=== PATIENT | female | born 1955 | race Caucasian/White ===

== ENCOUNTER 2021-07-13 14:20 | Outpatient (REF) | payer BC, SELFPAY ==
--- NOTE | ~2021-07-13 | XR_ITS ---
EXAMINATION: XR LUMBOSACRAL SPINE WITH OBLIQUES CLINICAL INFORMATION: M47.816 - Spondylosis without myelopathy or radiculopathy. Left hip pain. COMPARISON: CT abdomen and pelvis 06/25/2016 TECHNIQUE: Lumbar spine is imaged in 7 views including lateral projections in neutral position and with flexion and extension. FINDINGS: There are 5 nonrib-bearing lumbar vertebrae of normal height. There is no lumbar vertebral compression, spondylolisthesis, or destructive process. There is accentuated lumbar lordosis with limited range of motion in flexion and extension. There is no instability with flexion or extension. There are degenerative disc changes at L1-L2 and lesser degenerative disc change at L3-L4 with mild disc narrowing and endplate sclerosis and vertebral spurring. No visible spondylolysis. The SI joints and visualized sacrum are unremarkable. There is old bone island overlying the lower left ilium, similar to CT 2017. Calcifications left upper quadrant may be related to calcified costal cartilage or possibly splenic artery. Bowel gas unremarkable. XR/XR lumbar spine 6V w bending IMPRESSION: -Accentuated lumbar lordosis with limited range of motion. No instability. -Degenerative disc changes L1-L2 and lesser at L3-L4. -No vertebral compression or destructive process.
--- NOTE | ~2021-07-13 | XR_ITS ---
EXAMINATION: XR HIP, LEFT CLINICAL INFORMATION: M25.552 - Pain in left hip COMPARISON: Radiographs lumbar spine 07/13/2021, CT abdomen and pelvis 06/25/2016 TECHNIQUE: Two views of the left hip. FINDINGS: No fracture, dislocation, destructive process. No joint narrowing or erosive change or chondrocalcinosis. There is minor spurring from the greater trochanter. Mild spurring is again seen from the lateral iliac crest. There is an old sclerotic bone island again noted lower ileum, similar to CT 2017. The left SI joint and the pubis are unremarkable. There are scattered calcified phleboliths in the pelvis. XR/XR hip LT w PEL1V IMPRESSION: No joint narrowing or erosive change.
== END 2021-07-13 14:21 | disposition home or self-care (01) ==
LOC: HO.XRAY 14:20
PROVIDERS: PCP Internal Medicine; Visit Provider Nurse Practitioner Family
DX: G89.29 Other chronic pain (principal); M25.552 Pain in left hip; M47.816 Spondylosis without myelopathy or radiculopathy, lumbar region; M53.3 Sacrococcygeal disorders, not elsewhere classified; N94.819 Vulvodynia, unspecified; E66.3 Overweight; Z68.30 Body mass index [BMI] 30.0-30.9, adult; J30.81 Allergic rhinitis due to animal (cat) (dog) hair and dander; Z88.8 Allergy status to other drugs, medicaments and biological substances; J30.89 Other allergic rhinitis; Z91.030 Bee allergy status; Z91.040 Latex allergy status
CPT/HCPCS: 72114; 73502

== ENCOUNTER → 2021-07-23 08:24 | Outpatient (BNVA) | payer BC, SELFPAY | PROVIDERS: PCP Internal Medicine; Visit Provider Nurse Practitioner Family | DX: M25.552 Pain in left hip (principal) ==

== ENCOUNTER 2021-09-06 09:00 | Outpatient (RCR) | payer BC, SELFPAY ==
--- NOTE | 2021-08-13 13:27 | MHC.PT.EP ---
[facility] [place] Office [place] Office [place] Office [address] [phone] F: [phone] F: [phone] F: [phone] F: [phone] Physical Therapy Plan of Care Date of Evaluation: Date of Surgery: N/A Diagnosis: Pain in left hip Assessment: Reyna is a 66 yo F referred to pt for pain in left hip. She has difficulties walking for exercise without pain, turning in bed, ambulating stairs and shopping without pain. Her physical impairments include gross B weakness of hip musculature, slightly limited lumbar extension, rotation, and sidebending; along with decreased L hip flexion and B ER ROM. Reyna will benefit from skilled PT to strengthen her hip musculature, increase her lumbar ROM, and increase her L hip flexion and B ER ROM. OF NOTE, Pt WITH PELVIC FLOOR/GYNECOLOGY ISSUES, MAY BENEFIT FROM PELVIC FLOOR EVAL/RX Frequency and Duration: The patient will be seen 2/week for 6 weeks Short Term Goals: Patient will demonstrate a 25% increase in L hip ER to decrease tightness felt in left hip in 3 weeks. Patients will be able to walk with a 25% decrease in pain to encourage return to functional activities in 3 weeks. 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 Patient will demonstrate 1/2 grade increase in hip musculature to ambulate stairs more functionally in 6 weeks. Treatment Plan: Modalities to reduce pain, spasms and effusion. Manual therapy to restore motion and function. Therapeutic exercise to improve strength and flexibility. Neuromuscular re-education for posture and balance. Therapeutic activities to return to functional activities of daily living. Electronically signed by: JUAREZ BROWN PT Please sign and return to therapist. Thank you for your referral.
--- NOTE | 2021-08-13 13:28 | MHC.PT.EP ---
[facility] [place] Office [place] Office [place] Office [address] [phone] F: [phone] F: [phone] F: [phone] F: [phone] Physical Therapy Plan of Care Date of Evaluation: Date of Surgery: N/A Diagnosis: Pain in left hip Assessment: Reyna is a 66 yo F referred to pt for pain in left hip. She has difficulties walking for exercise without pain, turning in bed, ambulating stairs and shopping without pain. Her physical impairments include gross B weakness of hip musculature, slightly limited lumbar extension, rotation, and sidebending; along with decreased L hip flexion and B ER ROM. Reyna will benefit from skilled PT to strengthen her hip musculature, increase her lumbar ROM, and increase her L hip flexion and B ER ROM. OF NOTE, Pt WITH PELVIC FLOOR/GYNECOLOGY ISSUES, MAY BENEFIT FROM PELVIC FLOOR EVAL/RX Frequency and Duration: The patient will be seen 2/week for 6 weeks Short Term Goals: Patient will demonstrate a 25% increase in L hip ER to decrease tightness felt in left hip in 3 weeks. Patients will be able to walk with a 25% decrease in pain to encourage return to functional activities in 3 weeks. Pt WILL DEMONSTRATE 2-3 TASKS WITH PROPER BODY MECHANICS Medical Claims Examiner Goals: Patient will be I with HEP to promote terminal supervisor pain management strategies and sustainable functional capabilities in 6 weeks. Patient will demonstrate 1/2 grade increase in hip musculature to ambulate stairs more functionally in 6 weeks. Treatment Plan: Modalities to reduce pain, spasms and effusion. Manual therapy to restore motion and function. Therapeutic exercise to improve strength and flexibility. Neuromuscular re-education for posture and balance. Therapeutic activities to return to functional activities of daily living. Electronically signed by: JUAREZ BROWN PT Please sign and return to therapist. Thank you for your referral.
--- NOTE | 2021-08-13 13:30 | MHC.PT.EP ---
[facility] [place] Office [place] Office [place] Office [address] [phone] F: [phone] F: [phone] F: [phone] F: [phone] Physical Therapy Plan of Care Date of Evaluation: Date of Surgery: N/A Diagnosis: Pain in left hip Assessment: Reyna is a 66 yo F referred to pt for pain in left hip. She has difficulties walking for exercise without pain, turning in bed, ambulating stairs and shopping without pain. Her physical impairments include gross B weakness of hip musculature, slightly limited lumbar extension, rotation, and sidebending; along with decreased L hip flexion and B ER ROM. Reyna will benefit from skilled PT to strengthen her hip musculature, increase her lumbar ROM, and increase her L hip flexion and B ER ROM. OF NOTE, Pt WITH PELVIC FLOOR/GYNECOLOGY ISSUES, MAY BENEFIT FROM PELVIC FLOOR EVAL/RX Frequency and Duration: The patient will be seen 2/week for 6 weeks Short Term Goals: Patient will demonstrate a 25% increase in L hip ER to decrease tightness felt in left hip in 3 weeks. Patients will be able to walk with a 25% decrease in pain to encourage return to functional activities in 3 weeks. 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 Patient will demonstrate 1/2 grade increase in hip musculature to ambulate stairs more functionally in 6 weeks. Treatment Plan: Modalities to reduce pain, spasms and effusion. Manual therapy to restore motion and function. Therapeutic exercise to improve strength and flexibility. Neuromuscular re-education for posture and balance. Therapeutic activities to return to functional activities of daily living. Electronically signed by: JUAREZ RBOWN PT Please sign and return to therapist. Thank you for your referral.
--- NOTE | 2021-08-13 13:41 | MHC.PT.EP ---
[facility] [place] Office [place] Office [place] Office [address] [phone] F: [phone] F: [phone] F: [phone] F: [phone] Physical Therapy Plan of Care Date of Evaluation: Date of Surgery: N/A Diagnosis: Pain in left hip Assessment: Ryena is a 66 yo F referred to pt for pain in left hip. She has difficulties walking for exercise without pain, turning in bed, ambulating stairs and shopping without pain. Her physical impairments include gross B weakness of hip musculature, slightly limited lumbar extension, rotation, and sidebending; along with decreased L hip flexion and B ER ROM. Reyna will benefit from skilled PT to strengthen her hip musculature, increase her lumbar ROM, and increase her L hip flexion and B ER ROM. OF NOTE, Pt WITH PELVIC FLOOR/GYNECOLOGY ISSUES, MAY BENEFIT FROM PELVIC FLOOR EVAL/RX Frequency and Duration: The patient will be seen 2/week for 6 weeks Short Term Goals: Patient will demonstrate a 25% increase in L hip ER to decrease tightness felt in left hip in 3 weeks. Patients will be able to walk with a 25% decrease in pain to encourage return to functional activities in 3 weeks. 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 Patient will demonstrate 1/2 grade increase in hip musculature to ambulate stairs more functionally in 6 weeks. Treatment Plan: Modalities to reduce pain, spasms and effusion. Manual therapy to restore motion and function. Therapeutic exercise to improve strength and flexibility. Neuromuscular re-education for posture and balance. Therapeutic activities to return to functional activities of daily living. Electronically signed by: JUAREZ BROWN PT Please sign and return to therapist. Thank you for your referral.
--- NOTE | 2021-10-05 16:19 | MHC.PT.DC ---
[facility] [place] Office [place] Office [place] Office [address] [phone] F: [phone] F: [phone] F: [phone] F: [phone] Physical Therapy Discharge Report Diagnosis: Pain in left hip Date of Surgery: N/A Date of Evaluation: 08/13/21 Date of Discharge: 10/05/21 Treatments to Date: 7 Cancellations to Date: No Shows to Date: Discharge Status: Patient Elected to Stop Recommend MD Follow-up Discharge Summary: Pt SEEN IN PT FOR INIT EVAL AND 6 VISITS AT LAST VISIT PER ASSESSMENT 09/03 pt doing ex. good performance no pain today with activity. Pt THEN CALLED TO CANCEL FURTHER VISITS BECAUSE OF INCREASE IN PAIN..AWAITING MRI AND MD FU Electronically signed by: JUAREZ BROWN PT Please sign and return to therapist. Thank you for your referral.
== END 2021-10-05 16:20 | disposition home or self-care (01) ==
LOC: HO.PT 09:00
PROVIDERS: PCP Internal Medicine; Visit Provider Nurse Practitioner Family
DX: M25.552 Pain in left hip (principal)
CPT/HCPCS: 97110; 97140; 97162

== ENCOUNTER 2021-09-24 08:43 | Outpatient (REF) | payer BC, SELFPAY ==
--- NOTE | ~2021-09-24 | MR_ITS ---
MR LUMBAR SPINE WITHOUT IV CONTRAST CLINICAL INFORMATION: Lumbar region radiculopathy. COMPARISON: Lumbar spine MRI 05/10/2019 and lumbar spine radiographs 07/13/2021. Abdominal CT 06/25/2016. TECHNIQUE: MRI of the lumbar spine was obtained using routine sequences without contrast. FINDINGS: There are 5 nonrib-bearing lumbar-type vertebral bodies. Lumbar alignment is normal. The vertebral body heights are maintained. There is disc desiccation at all lumbar levels the exception of L5-S1. Modic type I endplate signal changes at L1-L2 and L3-L4. There is no additional bone marrow edema. There are no acute fractures. Conus terminates at the L1 level. Stable appearing 1.2 cm left adrenal nodule compatible with a lipid rich adrenal adenoma on the prior abdominal CT. L1-L2: Small annular disc bulge and mild bilateral facet arthropathy. A far left lateral disc osteophyte protrusion continues to approach without contacting the extraforaminal left L1 nerve root. No central canal stenosis and no foraminal stenosis. Findings unchanged. L2-L3: Disc contour is normal. Mild bilateral facet arthropathy and ligamentum flavum thickening. No central canal stenosis and no foraminal stenosis. Findings unchanged. L3-L4: Diffuse annular disc bulges in part disc osteophyte and moderate bilateral facet arthropathy and ligamentum flavum thickening. No central canal stenosis. Mild foraminal encroachment bilaterally. Findings are unchanged. L4-L5: Diffuse annular disc bulge and severe bilateral facet arthropathy and ligamentum flavum thickening. Findings are progressed resulting in slightly worsening mild to moderate central canal stenosis, left greater than right subarticular zone stenosis with mild mass effect on the traversing left greater than right L5 nerve roots, and mild bilateral foraminal encroachment. Dorsal annular fissure at this level. L5-S1: A right and left lateral disc osteophyte protrusions continue to contact the extraforaminal L5 nerve roots bilaterally. Severe bilateral facet arthropathy and ligamentum flavum thickening. No central canal stenosis and no foraminal stenosis. Findings unchanged. MR/MR lumbar spine wo con IMPRESSION: - At L4-L5, progressive spondylitic changes result in slightly worsening mild to moderate central canal stenosis, left greater than right subarticular zone stenosis with mild mass effect on the traversing left greater than right L5 nerve roots, and mild bilateral foraminal encroachment. Dorsal annular fissure at this level. - At L5-S1, right and left lateral disc osteophyte protrusions continue to contact the extraforaminal L5 nerve roots bilaterally. Advanced bilateral facet arthropathy at this level. - Additional stable mild spondylitic changes as described.
== END 2021-09-24 08:44 | disposition home or self-care (01) ==
LOC: HO.MRI 08:43
PROVIDERS: Visit Provider Nurse Practitioner Family
DX: M47.816 Spondylosis without myelopathy or radiculopathy, lumbar region (principal); M54.16 Radiculopathy, lumbar region; M25.552 Pain in left hip
CPT/HCPCS: 72148

== ENCOUNTER 2021-10-09 06:17 | Outpatient (REF) | payer BC, SELFPAY ==
--- NOTE | ~2021-10-09 | FL_ITS ---
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 Ephraim Mnaley. Fluoroscopy time: 0.3 minutes. Cumulative Dose: 23.1 mGy. DAP: 6.31 Gy-cm2. Images: 2. FINDINGS: There is spinal needle overlying sacral coccygeal region with tip just beyond the anterior bony cortex. There is contrast along the anterior sacral coccygeal area. No visible vascular communication. There are scattered calcified pelvic phleboliths. FL/FL guidance in treatment room IMPRESSION: Fluoroscopy for pain management procedure.
== END 2021-10-09 06:18 | disposition home or self-care (01) ==
LOC: HO.RADIR 06:17
PROVIDERS: Visit Provider Anesthesiology
DX: N94.819 Vulvodynia, unspecified (principal); M47.816 Spondylosis without myelopathy or radiculopathy, lumbar region; M25.552 Pain in left hip; M48.061 Spinal stenosis, lumbar region without neurogenic claudication; M54.16 Radiculopathy, lumbar region; M48.062 Spinal stenosis, lumbar region with neurogenic claudication
CPT/HCPCS: 64999; 76000; J2795; J3300

== ENCOUNTER 2022-01-21 11:16 | Outpatient (REF) | payer BC, SELFPAY ==
[2022-01-21 12:02] LABS: COVID-19 Test Negative (Negative); IDNOW Serial# 55D5AD1C
== END 2022-01-21 11:17 | disposition home or self-care (01) ==
LOC: HO.LAB 11:16
PROVIDERS: Visit Provider Internal Medicine
DX: Z20.822 Contact with and (suspected) exposure to COVID-19 (principal)
CPT/HCPCS: 87635; C9803

== ENCOUNTER 2022-02-12 10:00 | Outpatient (RCR) | payer BC, SELFPAY ==
--- NOTE | 2022-01-18 11:40 | MHC.PT.EP ---
[facility] [place] Office [place] Office [place] Office [address] [phone] F: [phone] F: [phone] F: [phone] F: [phone] Physical Therapy Plan of Care Date of Evaluation: Date of Surgery: NA Diagnosis: SACROCOCCYGEAL DISORDER Assessment: Pt IS 66 YO F REFERRED TO PT FROM PAIN MANAGEMENT WITH SACROCOCCYGEAL DISORDER AND VULVODYNIA. Pt HAS HAD PT HERE ABOUT 5 MONTHS AGO FOR L HIP PAIN (LIMITED RELIEF WITH HOME PROGRAM). PRESENTS AT THIS TIME WITH PAIN IN PELVIS AND SOME LE SXS. HAS PREFERENCE FOR TRUNK FLEXION. OF NOTE, Pt UNSURE IF SHE WOULD LIKE TO TRY PELVIC FLOOR THERAPY WITH SPECIALIST (SHE SAYS SHE WILL TALK WITH HER TRACK BROOM OPERATOR TO HELP HER DECIDE). IN THE MEANTIME, WILL WORK ON HIP/CORE/LE STRENGTH AND FLEXIBILITY. Frequency and Duration: The patient will be seen 2X/WK X 6 WKS Short Term Goals: 1. INCREASED AWARENESS BACK CARE 2. CENTRALIZE SXS Snf Goals: 1. I HEP WITH DC EX PLAN 2. DECREASED BACK PAIN AT LEAST 50% WITH ADLS 3. IMPROVED MOD OSWESTRY ( AT SOC) Treatment Plan: Modalities to reduce pain, spasms and effusion. Manual therapy to restore motion and function. Therapeutic exercise to improve strength and flexibility. Neuromuscular re-education for posture and balance. Therapeutic activities to return to functional activities of daily living. Electronically signed by: JUAREZ BROWN PT Please sign and return to therapist. Thank you for your referral.
--- NOTE | 2022-02-12 12:13 | MHC.PT.DC ---
[facility] [place] [facility] [place] Office [place] Office [address] [facility] [phone] F: [phone] F: [phone] F: [phone] F: [phone] Physical Therapy Discharge Report Diagnosis: SACROCOCCYGEAL DISORDER Date of Surgery: NA Date of Evaluation: 01/18/22 Date of Discharge: 02/12/22 Treatments to Date: 4 Cancellations to Date: No Shows to Date: Discharge Status: Independent with HEP Discharge Summary: I WITH HEP. HAS MULTIPLE OTHER ISSUES AND AT TIMES THINKS EXS ARE MAKING SOME SXS WORSE. HAS AN UNDERSTANDING OF KNOWING HOW TO MODIFY REPS OF EXS BASED ON HOW SHE IS FEELING Electronically signed by: JUAREZ MANZANARES Please sign and return to therapist. Thank you for your referral.
== END 2022-02-12 12:28 | disposition home or self-care (01) ==
LOC: HO.PT 10:00
PROVIDERS: PCP Internal Medicine; Visit Provider Nurse Practitioner Family
DX: N94.819 Vulvodynia, unspecified (principal); M53.3 Sacrococcygeal disorders, not elsewhere classified
CPT/HCPCS: 97110; 97161; 97535

== ENCOUNTER 2022-03-29 07:11 | Inpatient (IN) | payer MEDICARE, BC, SELFPAY ==
[2022-03-29] VITALS (9 sets, daily range): BP systolic 143–154; BP diastolic 72–81; PULSE 66–67; RESP 16–24; TEMP 36.8; O2SAT 95; BMI 24.0
--- NOTE | ~2022-03-29 | CT_ITS ---
EXAMINATION: CT HEAD WITHOUT CONTRAST CLINICAL INFORMATION: New psychosis COMPARISON: None TECHNIQUE: Contiguous axial imaging was performed from the skull base to vertex without intravenous administration of contrast. This CT examination was performed using dose optimization techniques as appropriate, variously including the following: *Automated exposure control *Adjustment of mA and/or kV according to patient size (this includes techniques or standardized protocols for targeted exams where dose is matched to indication/reason for exam; i.e. extremities or head) *Use of iterative reconstruction technique FINDINGS: There is no evidence of acute intracranial hemorrhage or territorial infarction. No abnormal mass effect or midline shift is seen. Nesbitt to white matter differentiation is well preserved. No extra-axial fluid collections are identified. No significant volume loss. No hydrocephalus. There is no abnormal attenuation within the brain parenchyma. The osseous structures and soft tissues are normal. The mastoid air cells and visualized portions of the paranasal sinuses are well aerated. CT/CT head/brain wo IV con IMPRESSION: No acute intracranial pathology.
--- NOTE | 2022-03-29 07:42 | ECG_ITS ---
Test Reason : anti psyxh meds Blood Pressure : / mmHG Vent. Rate : 076 BPM Atrial Rate : 076 BPM P-R Int : 130 ms QRS Dur : 088 ms QT Int : 392 ms P-R-T Axes : 040 038 026 degrees QTc Int : 441 ms Normal sinus rhythm Normal ECG When compared with ECG of 16-MAR-2017 18:42, No significant change was found Referred By: Generic ED Physician Electronically Signed By:MELISAS BLANC MD
[2022-03-29 07:48] LABS: MANUAL DIFF FLAG NO
[2022-03-29 07:52] LABS: Basophils Absolute Auto 0.1 X10*3/uL (0.0-0.2); Eosinophils Absolute Auto 0.6 X10*3/uL (0.0-0.4); Eosinophils Percent Auto 9.7 % (0-4); Hematocrit 42.3 % (37.0-47.0); Hemoglobin 13.7 g/dl (12.0-16.0); Imm Gran Abs Auto 0.03 X10*3/uL (0.00-0.03); Imm Gran Pct Auto 0.5 % (0.0-0.4); Lymphocytes Absolute Auto 1.6 X10*3/uL (1.2-4.9); Lymphocytes Percent Auto 26.7 % (20-40); Mean Corpuscular HGB Conc 32.4 g/dl (31.0-35.0); Mean Corpuscular Hemoglobin 29.1 pg (27.0-33.0); Mean Corpuscular Volume 89.8 fL (80.0-98.0); Mean Platelet Volume 10.6 fL (9.4-12.3); Monocytes Absolute Auto 0.5 X10*3/uL (0.1-1.2); Monocytes Percent Auto 8.1 % (2-11); Neutrophils Absolute Auto 3.2 x10*3/uL (2.0-8.3); Platelet Count 284 X10*3/uL (160-400); Red Blood Count 4.71 X10*6/uL (4.20-5.50); White Blood Count 5.9 X10*3/uL (4.8-10.8)
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
--- NOTE | 2022-03-29 07:57 | ED.PSYCH ---
HPI - Psych General Chief Complaint: Psychiatric Symptoms <AARON Lee - Last Filed: 03/29/22 17:59> Stated Complaint: CRISIS <AARON Lee Last Filed: 03/29/22 17:59> Time Seen by Provider: 03/29/22 07:47 <AARON Lee Last Filed: 03/29/22 17:59> Source: patient and EMS <AARON Lee Last Filed: 03/29/22 17:59> Mode of arrival: EMS <AARON Lee Last Filed: 03/29/22 17:59> Limitations: no limitations <AARON Lee Last Filed: 03/29/22 17:59> History of Present Illness HPI Narrative: 66-year-old female presents to the ER for evaluation of worsening acute onset psychosis for the last 1 month. According to police patient was physically aggressive on seeing her required intramuscular Haldol and Versed at 06:37 this morning. She was screaming, breaking lamps, having delusions about someone stealing her liver. Her reports she has had episodes of manic episodes and aggressive behaviors. She arrives to the ER calm and cooperative. She does not know why she is here. She is oriented x2 but does not know how long she has been here in the ER. She states she has a mild headache. Patient's has Parkinson's and is followed by Dr. Salazar. Patient reports she is also seen by Dr. Salazar and an outpatient MRI was ordered for 830am today. <AARON Lee - Last Filed: 03/29/22 17:59> MD complaint: altered mental status <AARON Lee Last Filed: 03/29/22 17:59> Onset (ago): month(s) (1) <AARON Lee Last Filed: 03/29/22 17:59> Duration: getting worse <AARON Lee Last Filed: 03/29/22 17:59> History of same: No <AARON Lee Last Filed: 03/29/22 17:59> Relieving factors: none <AARON Lee Last Filed: 03/29/22 17:59> Exacerbating factors: none <AARON Lee - Last Filed: 03/29/22 17:59> Associated psychiatric symptoms: racing thoughts and delusions <AARON Lee - Last Filed: 03/29/22 17:59> Treatments prior to arrival: placed on mental health hold <AARON Lee - Last Filed: 03/29/22 17:59> Related Data Home Medications: Home Medications Medication Instructions Recorded Confirmed epinephrine 0.3 mg/0.3 mL 0.3 mg IM DIRECTED 03/29/22 03/30/22 injection, auto-injector (EpiPen 2-Hebert) ezetimibe 10 mg tablet 1 tab PO DAILY 03/29/22 03/29/22 Previous Rx's Medication Instructions Recorded albuterol sulfate 90 mcg/actuation 2 puff inhalation Q4H PRN 04/03/22 aerosol inhaler (Ventolin HFA) Shortness Of Breath Or Wheezing #6.7 grams loratadine 10 mg tablet 10 mg PO DAILY@1200 #30 tabs 04/03/22 <AARON Lee - Last Filed: 03/29/22 17:59> Allergies/Adverse Reactions: Allergies Allergy/AdvReac Type Severity Reaction Status Date / Time cat dander Allergy Unknown Unknown Verified 10/29/21 15:00 ciprofloxacin Allergy Unknown gastritis Verified 10/29/21 15:00 gabapentin Allergy Unknown Anaphylaxis Verified 10/29/21 15:00 hornet venom [HORNETS] Allergy Unknown ANAPHYLACTI Verified 10/29/21 15:00 C latex Allergy Unknown Rash Verified 10/29/21 15:00 metronidazole Allergy Unknown GI distress Verified 10/29/21 15:00 pregabalin [From Lyrica] Allergy Unknown Angioedema Verified 10/29/21 15:00 sorbitol [SORBITOL] Allergy Unknown RASH Verified 10/29/21 15:00 sulfamethoxazole Allergy Unknown RASH Verified 10/29/21 15:00 [From BACTRIM] sulfasalazine Allergy Unknown Rash Verified 10/29/21 15:00 trimethoprim [From BACTRIM] Allergy Unknown RASH Verified 10/29/21 15:00 medrol dose pack Allergy Severe face Uncoded 10/16/21 15:50 swelling DUST Allergy Unknown SINUS Uncoded 10/16/21 15:50 INFECTION bandaids Allergy Unknown Uncoded 10/16/21 15:50 contrast Allergy rash on Uncoded 10/16/21 15:50 face betamethasone dipropriate AdvReac Severe rash Uncoded 10/16/21 15:50 <AARON Lee - Last Filed: 03/29/22 17:59> Review of Systems Review of Systems: Yes all other systems are reviewed and are negative <AARON Lee - Last Filed: 03/29/22 17:59> [facility] Past Medical History Medical History: Medical History Acute allergic rhinitis Adjustment disorder with mixed anxiety and depressed mood Anal sphincter incompetence Chronic bilateral low back pain without sciatica Depression Gallstones GERD (gastroesophageal reflux disease) Hypercholesterolemia IBS (irritable bowel syndrome) Lung nodule Other screening mammogram Pelvic floor dysfunction Proctalgia fugax Vulvodynia <AARON Lee - Last Filed: 03/29/22 17:59> Surgical History: Surgical History Hx of colonoscopy Hx of tonsillectomy <AARON Lee - Last Filed: 03/29/22 17:59> Family History Family History: Family History Mother Diabetes Pancreatic cancer Kidney problem Father Lung cancer Brother Peripheral vascular disease Brother CAD (coronary artery disease) Brother No problems noted. Sister Diabetes Sister Depression Maternal Grandmother Diabetes Hypertension Stroke Maternal Grandfather Lung disease Tuberculosis Other Colon cancer Ovarian cancer Stomach cancer Uterine cancer <AARON Lee - Last Filed: 03/29/22 17:59> Social History Social History: Social History Household Members: Spouse Housing: House Do you presently have visiting nurse or other home services: No Alcohol intake: unknown Patient Tobacco Use Status: Former Tobacco user Quit Date: 2016 Tobacco use type: Cigarette Cigarette Packs Per Day: 1 Cigarettes Per Day: 20.0 Years Smoked: 40 Smoked in Last 30 Days: No e-Cigarette/Vaping Use: Former Use Patient Interested in Nicotine Replacement: No Use of substances other than those prescribed or required for medical reasons: No Currently Displaying Signs/Symptoms of Drug Intoxication Withdrawal: No Any prior treatment program specific to substance use: No Have you been hit, kicked, punched, or otherwise hurt by someone within the past year? If so, by whom?: No Do you feel safe in your current relationship?: Yes Is there a partner from a previous relationship who is making you feel unsafe now?: No Are you made to feel afraid or neglected: No Spiritual Healthcare Practices: no Yazidism Healthcare Practices: no Cultural Healthcare Practices: no Advance Directives: No Advance Directives Information Provided: No (Declined) Do you have thoughts of harming others: None Do you have a plan to hurt others: No Plan Recently lost weight without trying: No Eating poorly because of decreased appetite: No Nutrition Risks: No Nutritional Risk Patient : No : No Poor oral hygiene: No service: No Sexual orientation: Straight/Heterosexual <AARON Lee - Last Filed: 03/29/22 17:59> Physical Exam Vital Signs: Vital Signs: Last Vital Signs Temp 98.1 F 04/02/22 18:00 Pulse 75 04/02/22 18:00 Resp 16 04/02/22 18:00 BP 125/63 04/02/22 18:00 Pulse Ox 93 04/02/22 18:00 O2 Del Method 04/02/22 18:00 BMI result Body Mass Index 24.0 <AARON Lee - Last Filed: 03/29/22 17:59> Vital Signs: Last Vital Signs Temp 98.1 F 04/02/22 18:00 Pulse 75 04/02/22 18:00 Resp 16 04/02/22 18:00 BP 125/63 04/02/22 18:00 Pulse Ox 93 04/02/22 18:00 O2 Del Method 04/02/22 18:00 BMI result Body Mass Index 24.0 <Rudy Lucio MD - Last Filed: 03/30/22 07:04> Vital Signs: Last Vital Signs Temp 98.1 F 04/02/22 18:00 Pulse 75 04/02/22 18:00 Resp 16 04/02/22 18:00 BP 125/63 04/02/22 18:00 Pulse Ox 93 04/02/22 18:00 O2 Del Method 04/02/22 18:00 BMI result Body Mass Index 24.0 <Ayaan Bonilla MD - Last Filed: 04/08/22 18:44> Appearance: Alert. Oriented X2. No acute distress. Eyes: Pupils equal, round and reactive to light. ENT: Pharynx normal. Neck: Normal inspection. Neck supple. CVS: Normal heart rate and rhythm. Pulses normal. Respiratory: No respiratory distress. Breath sounds normal. Abdomen: Soft and nontender. +BS x4 Skin: Skin warm and dry. Normal skin color. Normal skin turgor. No rashes. Extremities: No lower extremity edema. Neuro/psych: Oriented X 2. No motor deficit. No sensory deficit. CN II-XII intact. Confused, paranoid, anxious, flight of ideas, poor insight and judgment. not suicidal. delusional. <AARON Lee - Last Filed: 03/29/22 17:59> Course Course Course Narrative: 66-year-old female with a history back pain, reported history of PTSD due to deaths in the family who is currently not on any psychiatric medications who presents to the ER for evaluation of worsening psychotic behavior for the last 1 month with physical aggression. Her has a history of Parkinson's disease and has been trying to help care for her. He reports worsening outbursts and physical aggression in the last couple of weeks. Today she was seen screaming and breaking furniture. She was delusional and paranoid. She required intramuscular sedation from EMS for her safety. On arrival to the ER patient is calm and cooperative but somewhat confused. She has no idea how long she has been here. She states she is here because her is worried about her. She states she is fine would like to go home. Will get medical workup and have psych evaluate her. <AARON Lee - Last Filed: 03/29/22 17:59> Reevaluation(s) Reevaluation #1: Mildly elevated TSH with normal T4. Lab work is otherwise unremarkable. U tox positive for benzos only which were administered by EMS. CT scan of her head was negative. Urinalysis without evidence of UTI. Case was discussed with Tiff, nurse practitioner from Psychiatry. She is recommending medical admission for further workup with MRI, possible LP and other lab work. Concern for possible paraneoplastic syndrome. Case was discussed with hospitalist Dr. Mcdonnell, who is not recommending a medical admission at this time. Psychiatric team is aware. Will order MRI for further evaluation. <AARON Lee - Last Filed: 03/29/22 17:59> Reevaluation #2: Patient was brought and MRI and immediately tried to elope and fully. It was unsafe to attempt to continue the exam. Brought back to the pot where she had escalating behaviors, continued to try to fully and eloped. She required intramuscular medications for her safety and the safety of staff members. Will reassess ability for MRI on Friday when additional staff is here and medications can be provided to her. Planning for psychiatric admission <AARON Lee - Last Filed: 03/29/22 17:59> Reevaluation #3: 6:55 Am Mar Remain stable clinically she remain on Section 12 bed search Vital sign are stable she is afebrile and CBC and chemistry normal,she had a negative ct head.Planned psych admission.MRI was requested this would be really low yeald test and risks of sedating this pyscotic pt for Brain MRI would outweigh benefits. <Rudy Lucio MD - Last Filed: 03/30/22 07:04> Time: 07:02 <Rudy Lucio MD - Last Filed: 03/30/22 07:04> Medications Administered Discontinued Medications Generic Name Dose Route Start Last Admin Trade Name Butchq PRN Reason Stop Dose Admin Ezetimibe 10 mg 03/31/22 09:00 04/03/22 08:04 Ezetimibe 10 Mg Tablet PO Not Given DAILY ARRON Haloperidol Lactate 5 mg 03/29/22 15:47 03/29/22 16:00 Haloperidol Lactate 5 Mg/Ml Vial IM 03/29/22 15:48 5 mg STAT STA Administration Loratadine 10 mg 03/31/22 09:00 04/01/22 09:31 Loratadine 10 Mg Tablet PO 10 mg DAILY ARRON Administration Loratadine 10 mg 04/02/22 12:00 04/03/22 12:09 Loratadine 10 Mg Tablet PO Not Given DAILY@1200 ARRON Lorazepam 2 mg 03/29/22 15:47 03/29/22 16:00 Lorazepam 2 Mg/Ml Vial IM 03/29/22 15:48 2 mg ONCE ONE Administration Risperidone 1 mg 03/29/22 21:00 04/03/22 08:04 Risperidone 1 Mg Tablet PO Not Given BID ARRON <AARON Lee - Last Filed: 03/29/22 17:59> Medications Administered Discontinued Medications Generic Name Dose Route Start Last Admin Trade Name Malik PRN Reason Stop Dose Admin Ezetimibe 10 mg 03/31/22 09:00 04/03/22 08:04 Ezetimibe 10 Mg Tablet PO Not Given DAILY ARRON Haloperidol Lactate 5 mg 03/29/22 15:47 03/29/22 16:00 Haloperidol Lactate 5 Mg/Ml Vial IM 03/29/22 15:48 5 mg STAT STA Administration Loratadine 10 mg 03/31/22 09:00 04/01/22 09:31 Loratadine 10 Mg Tablet PO 10 mg DAILY ARRON Administration Loratadine 10 mg 04/02/22 12:00 04/03/22 12:09 Loratadine 10 Mg Tablet PO Not Given DAILY@1200 ARRON Lorazepam 2 mg 03/29/22 15:47 03/29/22 16:00 Lorazepam 2 Mg/Ml Vial IM 03/29/22 15:48 2 mg ONCE ONE Administration Risperidone 1 mg 03/29/22 21:00 04/03/22 08:04 Risperidone 1 Mg Tablet PO Not Given BID ARRON <Rudy Lucio MD - Last Filed: 03/30/22 07:04> Medications Administered Discontinued Medications Generic Name Dose Route Start Last Admin Trade Name Malik PRN Reason Stop Dose Admin Ezetimibe 10 mg 03/31/22 09:00 04/03/22 08:04 Ezetimibe 10 Mg Tablet PO Not Given DAILY ARRON Haloperidol Lactate 5 mg 03/29/22 15:47 03/29/22 16:00 Haloperidol Lactate 5 Mg/Ml Vial IM 03/29/22 15:48 5 mg STAT STA Administration Loratadine 10 mg 03/31/22 09:00 04/01/22 09:31 Loratadine 10 Mg Tablet PO 10 mg DAILY ARRON Administration Loratadine 10 mg 04/02/22 12:00 04/03/22 12:09 Loratadine 10 Mg Tablet PO Not Given DAILY@1200 ARRON Lorazepam 2 mg 03/29/22 15:47 03/29/22 16:00 Lorazepam 2 Mg/Ml Vial IM 03/29/22 15:48 2 mg ONCE ONE Administration Risperidone 1 mg 03/29/22 21:00 04/03/22 08:04 Risperidone 1 Mg Tablet PO Not Given BID ARRON <Ayaan Bonilla MD - Last Filed: 04/08/22 18:44> Medical Decision Making Differential Diagnosis Differential Diagnoses: The differential diagnosis associated with the presentation includes <AARON Lee - Last Filed: 03/29/22 17:59> acute psychosis, new onset of mental illness, polysubstance abuse, paraneoplastic syndrome, metabolic encephalopathy, encephalitis, less likely stroke <AARON Lee - Last Filed: 03/29/22 17:59> Admission/Observation Consideration of admission/observation: Escalation of care including admission/observation considered <AARON Lee - Last Filed: 03/29/22 17:59> will require inpatient level of care <AARON Lee - Last Filed: 03/29/22 17:59> Consult Healthcare Provider Management of the patient was discussed with: Merchandising Execution Manager and Behavioral Health Provider <AARON Lee - Last Filed: 03/29/22 17:59> Lab Data MDM Lab Attestation statement: I reviewed the patient's lab results. <AARON Lee - Last Filed: 03/29/22 17:59> Result Diagrams: 03/29/22 07:43 03/29/22 07:43 <AARON Lee - Last Filed: 03/29/22 17:59> Labs: Lab Results 03/29/22 03/29/22 03/29/22 Range/Units 07:37 07:37 07:43 WBC 5.9 (4.8-10.8) X10*3/uL RBC 4.71 (4.20-5.50) X10*6/uL Hgb 13.7 (12.0-16.0) g/dl Hct 42.3 (37.0-47.0) % MCV 89.8 (80.0-98.0) fL MCH 29.1 (27.0-33.0) pg MCHC 32.4 (31.0-35.0) g/dl RDW 14.0 (11.0-16.0) % Plt Count 284 (160-400) X10*3/uL MPV 10.6 (9.4-12.3) fL Immature Gran % (Auto) 0.5 H (0.0-0.4) % Neut % (Auto) 54.0 (45-73) % Lymph % (Auto) 26.7 (20-40) % [place] % (Auto) 8.1 (2-11) % Eos % (Auto) 9.7 H (0-4) % Baso % (Auto) 1.0 (0-2) % Lymph # (Auto) 1.6 (1.2-4.9) X10*3/uL [place] # (Auto) 0.5 (0.1-1.2) X10*3/uL Eos # (Auto) 0.6 H (0.0-0.4) X10*3/uL Baso # (Auto) 0.1 (0.0-0.2) X10*3/uL Abs Immat Gran (auto) 0.03 (0.00-0.03) X10*3/uL Absolute Neuts (auto) 3.2 (2.0-8.3) x10*3/uL Absolute Nucleated RBC 0.000 (0.0-0.012) X10*3/uL Nucleated RBC % (auto) 0.0 (0.0-0.2) /100WBC Sodium (135-145) mmol/L Potassium (3.3-5.1) mmol/L Chloride (96-108) mmol/L Carbon Dioxide (22-29) mmol/L Anion Gap (12-20) BUN (9-16) mg/dL Creatinine (0.5-1.4) mg/dL Estim Creat Clear Calc Estimated GFR Random Glucose (60-115) mg/dL Calcium (8.4-10.2) mg/dL Total Bilirubin (0.0-1.0) mg/dL Direct Bilirubin (0.0-0.5) mg/dL AST (5-31) U/L ALT (0-31) U/L Alkaline Phosphatase (39-117) U/L C-Reactive Protein (< or = 0.50) mg/dL Total Protein (6.5-8.0) g/dL Albumin (3.5-5.0) g/dL Lipase (8-78) U/L TSH (0.32-4.0) uIU/mL Free T4 (0.71-1.85) ng/dL Urine Color Urine Appearance Urine pH (5.0-9.0) Ur Specific [place] (1.005-1.025) Urine Protein (Neg-Trace) mg/dL Urine Glucose (UA) (Negative) mg/dL Urine Ketones (Negative) mg/dL Urine Blood (Negative) Urine Nitrite (Negative) Ur Leukocyte Esterase (Negative) Urine RBC (0-2) /HPF Urine WBC (0-5) /HPF Ur Squamous Epith Cells (0-2) /HPF Urine Bacteria (None Seen) Hyaline Casts (0-2) /LPF Urine Opiates Screen (Not Detect) Urine Fentanyl Screen (Not Detect) Ur Barbiturates Screen (Not Detect) Ur Phencyclidine Scrn (Not Detect) Ur Amphetamines Screen (Not Detect) U Benzodiazepines Scrn (Not Detect) Urine Cocaine Screen (Not Detect) U Marijuana (THC) Screen (Not Detect) Ethyl Alcohol mg/dL DEMARCUS Screen (NEGATIVE) DEMARCUS Titer DEMARCUS Titer 2 DEMARCUS Titer 3 DEMARCUS Pattern DEMARCUS Pattern 2 DEMARCUS Pattern 3 TSH Receptor Ab (<=2.00) IU/L T.pallidum Ab (EIA) Nonreactive (Nonreactive) Influenza Type A (PCR) NEGATIVE (Negative) Influenza Type B (PCR) NEGATIVE (Negative) RSV RNA Qual (PCR) NEGATIVE (Negative) SARS-CoV-2 RNA (RT-PCR) NEGATIVE (Negative) 03/29/22 03/29/22 03/29/22 Range/Units 07:43 08:41 08:41 WBC (4.8-10.8) X10*3/uL RBC (4.20-5.50) X10*6/uL Hgb (12.0-16.0) g/dl Hct (37.0-47.0) % MCV (80.0-98.0) fL MCH (27.0-33.0) pg MCHC (31.0-35.0) g/dl RDW (11.0-16.0) % Plt Count (160-400) X10*3/uL MPV (9.4-12.3) fL Immature Gran % (Auto) (0.0-0.4) % Neut % (Auto) (45-73) % Lymph % (Auto) (20-40) % [place] % (Auto) (2-11) % Eos % (Auto) (0-4) % Baso % (Auto) (0-2) % Lymph # (Auto) (1.2-4.9) X10*3/uL [place] # (Auto) (0.1-1.2) X10*3/uL Eos # (Auto) (0.0-0.4) X10*3/uL Baso # (Auto) (0.0-0.2) X10*3/uL Abs Immat Gran (auto) (0.00-0.03) X10*3/uL Absolute Neuts (auto) (2.0-8.3) x10*3/uL Absolute Nucleated RBC (0.0-0.012) X10*3/uL Nucleated RBC % (auto) (0.0-0.2) /100WBC Sodium 144 (135-145) mmol/L Potassium 4.6 (3.3-5.1) mmol/L Chloride 107 (96-108) mmol/L Carbon Dioxide 28 (22-29) mmol/L Anion Gap 14 (12-20) BUN 17 H (9-16) mg/dL Creatinine 0.77 (0.5-1.4) mg/dL Estim Creat Clear Calc 63.7 Estimated GFR > 60 Random Glucose 98 (60-115) mg/dL Calcium 9.6 (8.4-10.2) mg/dL Total Bilirubin 0.2 (0.0-1.0) mg/dL Direct Bilirubin < 0.2 (0.0-0.5) mg/dL AST 17 (5-31) U/L ALT 14 (0-31) U/L Alkaline Phosphatase 76 (39-117) U/L C-Reactive Protein < 0.10 (< or = 0.50) mg/dL Total Protein 6.9 (6.5-8.0) g/dL Albumin 4.3 (3.5-5.0) g/dL Lipase 45 (8-78) U/L TSH 5.16 H (0.32-4.0) uIU/mL Free T4 1.10 (0.71-1.85) ng/dL Urine Color Yellow Urine Appearance Clear Urine pH 7.5 (5.0-9.0) Ur Specific [place] <= 1.005 (1.005-1.025) Urine Protein Negative (Neg-Trace) mg/dL Urine Glucose (UA) Negative (Negative) mg/dL Urine Ketones Negative (Negative) mg/dL Urine Blood Negative (Negative) Urine Nitrite Negative (Negative) Ur Leukocyte Esterase Trace H (Negative) Urine RBC 0-2 (0-2) /HPF Urine WBC 0-5 (0-5) /HPF Ur Squamous Epith Cells 0-2 (0-2) /HPF Urine Bacteria None Seen (None Seen) Hyaline Casts 0-2 (0-2) /LPF Urine Opiates Screen Not Detected (Not Detect) Urine Fentanyl Screen Not Detected (Not Detect) Ur Barbiturates Screen Not Detected (Not Detect) Ur Phencyclidine Scrn Not Detected (Not Detect) Ur Amphetamines Screen Not Detected (Not Detect) U Benzodiazepines Scrn POSITIVE H (Not Detect) Urine Cocaine Screen Not Detected (Not Detect) U Marijuana (THC) Screen Not Detected (Not Detect) Ethyl Alcohol < 10 mg/dL DEMARCUS Screen (NEGATIVE) DEMARCUS Titer DEMARCUS Titer 2 DEMARCUS Titer 3 DEMARCUS Pattern DEMARCUS Pattern 2 DEMARCUS Pattern 3 TSH Receptor Ab (<=2.00) IU/L T.pallidum Ab (EIA) (Nonreactive) Influenza Type A (PCR) (Negative) Influenza Type B (PCR) (Negative) RSV RNA Qual (PCR) (Negative) SARS-CoV-2 RNA (RT-PCR) (Negative) 03/29/22 03/29/22 Range/Units 14:05 14:05 WBC (4.8-10.8) X10*3/uL RBC (4.20-5.50) X10*6/uL Hgb (12.0-16.0) g/dl Hct (37.0-47.0) % MCV (80.0-98.0) fL MCH (27.0-33.0) pg MCHC (31.0-35.0) g/dl RDW (11.0-16.0) % Plt Count (160-400) X10*3/uL MPV (9.4-12.3) fL Immature Gran % (Auto) (0.0-0.4) % Neut % (Auto) (45-73) % Lymph % (Auto) (20-40) % [place] % (Auto) (2-11) % Eos % (Auto) (0-4) % Baso % (Auto) (0-2) % Lymph # (Auto) (1.2-4.9) X10*3/uL [place] # (Auto) (0.1-1.2) X10*3/uL Eos # (Auto) (0.0-0.4) X10*3/uL Baso # (Auto) (0.0-0.2) X10*3/uL Abs Immat Gran (auto) (0.00-0.03) X10*3/uL Absolute Neuts (auto) (2.0-8.3) x10*3/uL Absolute Nucleated RBC (0.0-0.012) X10*3/uL Nucleated RBC % (auto) (0.0-0.2) /100WBC Sodium (135-145) mmol/L Potassium (3.3-5.1) mmol/L Chloride (96-108) mmol/L Carbon Dioxide (22-29) mmol/L Anion Gap (12-20) BUN (9-16) mg/dL Creatinine (0.5-1.4) mg/dL Estim Creat Clear Calc Estimated GFR Random Glucose (60-115) mg/dL Calcium (8.4-10.2) mg/dL Total Bilirubin (0.0-1.0) mg/dL Direct Bilirubin (0.0-0.5) mg/dL AST (5-31) U/L ALT (0-31) U/L Alkaline Phosphatase (39-117) U/L C-Reactive Protein (< or = 0.50) mg/dL Total Protein (6.5-8.0) g/dL Albumin (3.5-5.0) g/dL Lipase (8-78) U/L TSH (0.32-4.0) uIU/mL Free T4 (0.71-1.85) ng/dL Urine Color Urine Appearance Urine pH (5.0-9.0) Ur Specific [place] (1.005-1.025) Urine Protein (Neg-Trace) mg/dL Urine Glucose (UA) (Negative) mg/dL Urine Ketones (Negative) mg/dL Urine Blood (Negative) Urine Nitrite (Negative) Ur Leukocyte Esterase (Negative) Urine RBC (0-2) /HPF Urine WBC (0-5) /HPF Ur Squamous Epith Cells (0-2) /HPF Urine Bacteria (None Seen) Hyaline Casts (0-2) /LPF Urine Opiates Screen (Not Detect) Urine Fentanyl Screen (Not Detect) Ur Barbiturates Screen (Not Detect) Ur Phencyclidine Scrn (Not Detect) Ur Amphetamines Screen (Not Detect) U Benzodiazepines Scrn (Not Detect) Urine Cocaine Screen (Not Detect) U Marijuana (THC) Screen (Not Detect) Ethyl Alcohol mg/dL DEMARCUS Screen NEGATIVE (NEGATIVE) DEMARCUS Titer TNP DEMARCUS Titer 2 TNP DEMARCSU Titer 3 TNP DEMARCUS Pattern TNP DEMARCUS Pattern 2 TNP DEMARCUS Pattern 3 TNP TSH Receptor Ab <1.00 (<=2.00) IU/L T.pallidum Ab (EIA) (Nonreactive) Influenza Type A (PCR) (Negative) Influenza Type B (PCR) (Negative) RSV RNA Qual (PCR) (Negative) SARS-CoV-2 RNA (RT-PCR) (Negative) <AARON Lee - Last Filed: 03/29/22 17:59> Lab Results 03/29/22 03/29/22 03/29/22 Range/Units 07:37 07:37 07:43 WBC 5.9 (4.8-10.8) X10*3/uL RBC 4.71 (4.20-5.50) X10*6/uL Hgb 13.7 (12.0-16.0) g/dl Hct 42.3 (37.0-47.0) % MCV 89.8 (80.0-98.0) fL MCH 29.1 (27.0-33.0) pg MCHC 32.4 (31.0-35.0) g/dl RDW 14.0 (11.0-16.0) % Plt Count 284 (160-400) X10*3/uL MPV 10.6 (9.4-12.3) fL Immature Gran % (Auto) 0.5 H (0.0-0.4) % Neut % (Auto) 54.0 (45-73) % Lymph % (Auto) 26.7 (20-40) % [place] % (Auto) 8.1 (2-11) % Eos % (Auto) 9.7 H (0-4) % Baso % (Auto) 1.0 (0-2) % Lymph # (Auto) 1.6 (1.2-4.9) X10*3/uL [place] # (Auto) 0.5 (0.1-1.2) X10*3/uL Eos # (Auto) 0.6 H (0.0-0.4) X10*3/uL Baso # (Auto) 0.1 (0.0-0.2) X10*3/uL Abs Immat Gran (auto) 0.03 (0.00-0.03) X10*3/uL Absolute Neuts (auto) 3.2 (2.0-8.3) x10*3/uL Absolute Nucleated RBC 0.000 (0.0-0.012) X10*3/uL Nucleated RBC % (auto) 0.0 (0.0-0.2) /100WBC Sodium (135-145) mmol/L Potassium (3.3-5.1) mmol/L Chloride (96-108) mmol/L Carbon Dioxide (22-29) mmol/L Anion Gap (12-20) BUN (9-16) mg/dL Creatinine (0.5-1.4) mg/dL Estim Creat Clear Calc Estimated GFR Random Glucose (60-115) mg/dL Calcium (8.4-10.2) mg/dL Total Bilirubin (0.0-1.0) mg/dL Direct Bilirubin (0.0-0.5) mg/dL AST (5-31) U/L ALT (0-31) U/L Alkaline Phosphatase (39-117) U/L C-Reactive Protein (< or = 0.50) mg/dL Total Protein (6.5-8.0) g/dL Albumin (3.5-5.0) g/dL Lipase (8-78) U/L TSH (0.32-4.0) uIU/mL Free T4 (0.71-1.85) ng/dL Urine Color Urine Appearance Urine pH (5.0-9.0) Ur Specific [place] (1.005-1.025) Urine Protein (Neg-Trace) mg/dL Urine Glucose (UA) (Negative) mg/dL Urine Ketones (Negative) mg/dL Urine Blood (Negative) Urine Nitrite (Negative) Ur Leukocyte Esterase (Negative) Urine RBC (0-2) /HPF Urine WBC (0-5) /HPF Ur Squamous Epith Cells (0-2) /HPF Urine Bacteria (None Seen) Hyaline Casts (0-2) /LPF Urine Opiates Screen (Not Detect) Urine Fentanyl Screen (Not Detect) Ur Barbiturates Screen (Not Detect) Ur Phencyclidine Scrn (Not Detect) Ur Amphetamines Screen (Not Detect) U Benzodiazepines Scrn (Not Detect) Urine Cocaine Screen (Not Detect) U Marijuana (THC) Screen (Not Detect) Ethyl Alcohol mg/dL DEMARCUS Screen (NEGATIVE) DEMARCUS Titer DEMARCUS Titer 2 DEMARCUS Titer 3 DEMARCUS Pattern DEMARCUS Pattern 2 DEMARCUS Pattern 3 TSH Receptor Ab (<=2.00) IU/L T.pallidum Ab (EIA) Nonreactive (Nonreactive) Influenza Type A (PCR) NEGATIVE (Negative) Influenza Type B (PCR) NEGATIVE (Negative) RSV RNA Qual (PCR) NEGATIVE (Negative) SARS-CoV-2 RNA (RT-PCR) NEGATIVE (Negative) 03/29/22 03/29/22 03/29/22 Range/Units 07:43 08:41 08:41 WBC (4.8-10.8) X10*3/uL RBC (4.20-5.50) X10*6/uL Hgb (12.0-16.0) g/dl Hct (37.0-47.0) % MCV (80.0-98.0) fL MCH (27.0-33.0) pg MCHC (31.0-35.0) g/dl RDW (11.0-16.0) % Plt Count (160-400) X10*3/uL MPV (9.4-12.3) fL Immature Gran % (Auto) (0.0-0.4) % Neut % (Auto) (45-73) % Lymph % (Auto) (20-40) % [place] % (Auto) (2-11) % Eos % (Auto) (0-4) % Baso % (Auto) (0-2) % Lymph # (Auto) (1.2-4.9) X10*3/uL [place] # (Auto) (0.1-1.2) X10*3/uL Eos # (Auto) (0.0-0.4) X10*3/uL Baso # (Auto) (0.0-0.2) X10*3/uL Abs Immat Gran (auto) (0.00-0.03) X10*3/uL Absolute Neuts (auto) (2.0-8.3) x10*3/uL Absolute Nucleated RBC (0.0-0.012) X10*3/uL Nucleated RBC % (auto) (0.0-0.2) /100WBC Sodium 144 (135-145) mmol/L Potassium 4.6 (3.3-5.1) mmol/L Chloride 107 (96-108) mmol/L Carbon Dioxide 28 (22-29) mmol/L Anion Gap 14 (12-20) BUN 17 H (9-16) mg/dL Creatinine 0.77 (0.5-1.4) mg/dL Estim Creat Clear Calc 63.7 Estimated GFR > 60 Random Glucose 98 (60-115) mg/dL Calcium 9.6 (8.4-10.2) mg/dL Total Bilirubin 0.2 (0.0-1.0) mg/dL Direct Bilirubin < 0.2 (0.0-0.5) mg/dL AST 17 (5-31) U/L ALT 14 (0-31) U/L Alkaline Phosphatase 76 (39-117) U/L C-Reactive Protein < 0.10 (< or = 0.50) mg/dL Total Protein 6.9 (6.5-8.0) g/dL Albumin 4.3 (3.5-5.0) g/dL Lipase 45 (8-78) U/L TSH 5.16 H (0.32-4.0) uIU/mL Free T4 1.10 (0.71-1.85) ng/dL Urine Color Yellow Urine Appearance Clear Urine pH 7.5 (5.0-9.0) Ur Specific [place] <= 1.005 (1.005-1.025) Urine Protein Negative (Neg-Trace) mg/dL Urine Glucose (UA) Negative (Negative) mg/dL Urine Ketones Negative (Negative) mg/dL Urine Blood Negative (Negative) Urine Nitrite Negative (Negative) Ur Leukocyte Esterase Trace H (Negative) Urine RBC 0-2 (0-2) /HPF Urine WBC 0-5 (0-5) /HPF Ur Squamous Epith Cells 0-2 (0-2) /HPF Urine Bacteria None Seen (None Seen) Hyaline Casts 0-2 (0-2) /LPF Urine Opiates Screen Not Detected (Not Detect) Urine Fentanyl Screen Not Detected (Not Detect) Ur Barbiturates Screen Not Detected (Not Detect) Ur Phencyclidine Scrn Not Detected (Not Detect) Ur Amphetamines Screen Not Detected (Not Detect) U Benzodiazepines Scrn POSITIVE H (Not Detect) Urine Cocaine Screen Not Detected (Not Detect) U Marijuana (THC) Screen Not Detected (Not Detect) Ethyl Alcohol < 10 mg/dL EDMARCUS Screen (NEGATIVE) DEMARCUS Titer DEMARCUS Titer 2 DEMARCUS Titer 3 DEMARCUS Pattern DEMARCUS Pattern 2 DEMARCUS Pattern 3 TSH Receptor Ab (<=2.00) IU/L T.pallidum Ab (EIA) (Nonreactive) Influenza Type A (PCR) (Negative) Influenza Type B (PCR) (Negative) RSV RNA Qual (PCR) (Negative) SARS-CoV-2 RNA (RT-PCR) (Negative) 03/29/22 03/29/22 Range/Units 14:05 14:05 WBC (4.8-10.8) X10*3/uL RBC (4.20-5.50) X10*6/uL Hgb (12.0-16.0) g/dl Hct (37.0-47.0) % MCV (80.0-98.0) fL MCH (27.0-33.0) pg MCHC (31.0-35.0) g/dl RDW (11.0-16.0) % Plt Count (160-400) X10*3/uL MPV (9.4-12.3) fL Immature Gran % (Auto) (0.0-0.4) % Neut % (Auto) (45-73) % Lymph % (Auto) (20-40) % [place] % (Auto) (2-11) % Eos % (Auto) (0-4) % Baso % (Auto) (0-2) % Lymph # (Auto) (1.2-4.9) X10*3/uL [place] # (Auto) (0.1-1.2) X10*3/uL Eos # (Auto) (0.0-0.4) X10*3/uL Baso # (Auto) (0.0-0.2) X10*3/uL Abs Immat Gran (auto) (0.00-0.03) X10*3/uL Absolute Neuts (auto) (2.0-8.3) x10*3/uL Absolute Nucleated RBC (0.0-0.012) X10*3/uL Nucleated RBC % (auto) (0.0-0.2) /100WBC Sodium (135-145) mmol/L Potassium (3.3-5.1) mmol/L Chloride (96-108) mmol/L Carbon Dioxide (22-29) mmol/L Anion Gap (12-20) BUN (9-16) mg/dL Creatinine (0.5-1.4) mg/dL Estim Creat Clear Calc Estimated GFR Random Glucose (60-115) mg/dL Calcium (8.4-10.2) mg/dL Total Bilirubin (0.0-1.0) mg/dL Direct Bilirubin (0.0-0.5) mg/dL AST (5-31) U/L ALT (0-31) U/L Alkaline Phosphatase (39-117) U/L C-Reactive Protein (< or = 0.50) mg/dL Total Protein (6.5-8.0) g/dL Albumin (3.5-5.0) g/dL Lipase (8-78) U/L TSH (0.32-4.0) uIU/mL Free T4 (0.71-1.85) ng/dL Urine Color Urine Appearance Urine pH (5.0-9.0) Ur Specific [place] (1.005-1.025) Urine Protein (Neg-Trace) mg/dL Urine Glucose (UA) (Negative) mg/dL Urine Ketones (Negative) mg/dL Urine Blood (Negative) Urine Nitrite (Negative) Ur Leukocyte Esterase (Negative) Urine RBC (0-2) /HPF Urine WBC (0-5) /HPF Ur Squamous Epith Cells (0-2) /HPF Urine Bacteria (None Seen) Hyaline Casts (0-2) /LPF Urine Opiates Screen (Not Detect) Urine Fentanyl Screen (Not Detect) Ur Barbiturates Screen (Not Detect) Ur Phencyclidine Scrn (Not Detect) Ur Amphetamines Screen (Not Detect) U Benzodiazepines Scrn (Not Detect) Urine Cocaine Screen (Not Detect) U Marijuana (THC) Screen (Not Detect) Ethyl Alcohol mg/dL DEMARCUS Screen NEGATIVE (NEGATIVE) DEMARCUS Titer TNP DEMARCUS Titer 2 TNP DEMARCUS Titer 3 TNP DEMARCUS Pattern TNP DEMARCUS Pattern 2 TNP DEMARCUS Pattern 3 TNP TSH Receptor Ab <1.00 (<=2.00) IU/L T.pallidum Ab (EIA) (Nonreactive) Influenza Type A (PCR) (Negative) Influenza Type B (PCR) (Negative) RSV RNA Qual (PCR) (Negative) SARS-CoV-2 RNA (RT-PCR) (Negative) <Rudy Lucio MD - Last Filed: 03/30/22 07:04> Lab Results 03/29/22 03/29/22 03/29/22 Range/Units 07:37 07:37 07:43 WBC 5.9 (4.8-10.8) X10*3/uL RBC 4.71 (4.20-5.50) X10*6/uL Hgb 13.7 (12.0-16.0) g/dl Hct 42.3 (37.0-47.0) % MCV 89.8 (80.0-98.0) fL MCH 29.1 (27.0-33.0) pg MCHC 32.4 (31.0-35.0) g/dl RDW 14.0 (11.0-16.0) % Plt Count 284 (160-400) X10*3/uL MPV 10.6 (9.4-12.3) fL Immature Gran % (Auto) 0.5 H (0.0-0.4) % Neut % (Auto) 54.0 (45-73) % Lymph % (Auto) 26.7 (20-40) % [place] % (Auto) 8.1 (2-11) % Eos % (Auto) 9.7 H (0-4) % Baso % (Auto) 1.0 (0-2) % Lymph # (Auto) 1.6 (1.2-4.9) X10*3/uL [place] # (Auto) 0.5 (0.1-1.2) X10*3/uL Eos # (Auto) 0.6 H (0.0-0.4) X10*3/uL Baso # (Auto) 0.1 (0.0-0.2) X10*3/uL Abs Immat Gran (auto) 0.03 (0.00-0.03) X10*3/uL Absolute Neuts (auto) 3.2 (2.0-8.3) x10*3/uL Absolute Nucleated RBC 0.000 (0.0-0.012) X10*3/uL Nucleated RBC % (auto) 0.0 (0.0-0.2) /100WBC Sodium (135-145) mmol/L Potassium (3.3-5.1) mmol/L Chloride (96-108) mmol/L Carbon Dioxide (22-29) mmol/L Anion Gap (12-20) BUN (9-16) mg/dL Creatinine (0.5-1.4) mg/dL Estim Creat Clear Calc Estimated GFR Random Glucose (60-115) mg/dL Calcium (8.4-10.2) mg/dL Total Bilirubin (0.0-1.0) mg/dL Direct Bilirubin (0.0-0.5) mg/dL AST (5-31) U/L ALT (0-31) U/L Alkaline Phosphatase (39-117) U/L C-Reactive Protein (< or = 0.50) mg/dL Total Protein (6.5-8.0) g/dL Albumin (3.5-5.0) g/dL Lipase (8-78) U/L TSH (0.32-4.0) uIU/mL Free T4 (0.71-1.85) ng/dL Urine Color Urine Appearance Urine pH (5.0-9.0) Ur Specific [place] (1.005-1.025) Urine Protein (Neg-Trace) mg/dL Urine Glucose (UA) (Negative) mg/dL Urine Ketones (Negative) mg/dL Urine Blood (Negative) Urine Nitrite (Negative) Ur Leukocyte Esterase (Negative) Urine RBC (0-2) /HPF Urine WBC (0-5) /HPF Ur Squamous Epith Cells (0-2) /HPF Urine Bacteria (None Seen) Hyaline Casts (0-2) /LPF Urine Opiates Screen (Not Detect) Urine Fentanyl Screen (Not Detect) Ur Barbiturates Screen (Not Detect) Ur Phencyclidine Scrn (Not Detect) Ur Amphetamines Screen (Not Detect) U Benzodiazepines Scrn (Not Detect) Urine Cocaine Screen (Not Detect) U Marijuana (THC) Screen (Not Detect) Ethyl Alcohol mg/dL DEMARCUS Screen (NEGATIVE) DEMARCUS Titer DEMARCUS Titer 2 DEMARCUS Titer 3 DEMARCUS Pattern DEMARCUS Pattern 2 DEMARCUS Pattern 3 TSH Receptor Ab (<=2.00) IU/L T.pallidum Ab (EIA) Nonreactive (Nonreactive) Influenza Type A (PCR) NEGATIVE (Negative) Influenza Type B (PCR) NEGATIVE (Negative) RSV RNA Qual (PCR) NEGATIVE (Negative) SARS-CoV-2 RNA (RT-PCR) NEGATIVE (Negative) 03/29/22 03/29/22 03/29/22 Range/Units 07:43 08:41 08:41 WBC (4.8-10.8) X10*3/uL RBC (4.20-5.50) X10*6/uL Hgb (12.0-16.0) g/dl Hct (37.0-47.0) % MCV (80.0-98.0) fL MCH (27.0-33.0) pg MCHC (31.0-35.0) g/dl RDW (11.0-16.0) % Plt Count (160-400) X10*3/uL MPV (9.4-12.3) fL Immature Gran % (Auto) (0.0-0.4) % Neut % (Auto) (45-73) % Lymph % (Auto) (20-40) % [place] % (Auto) (2-11) % Eos % (Auto) (0-4) % Baso % (Auto) (0-2) % Lymph # (Auto) (1.2-4.9) X10*3/uL [place] # (Auto) (0.1-1.2) X10*3/uL Eos # (Auto) (0.0-0.4) X10*3/uL Baso # (Auto) (0.0-0.2) X10*3/uL Abs Immat Gran (auto) (0.00-0.03) X10*3/uL Absolute Neuts (auto) (2.0-8.3) x10*3/uL Absolute Nucleated RBC (0.0-0.012) X10*3/uL Nucleated RBC % (auto) (0.0-0.2) /100WBC Sodium 144 (135-145) mmol/L Potassium 4.6 (3.3-5.1) mmol/L Chloride 107 (96-108) mmol/L Carbon Dioxide 28 (22-29) mmol/L Anion Gap 14 (12-20) BUN 17 H (9-16) mg/dL Creatinine 0.77 (0.5-1.4) mg/dL Estim Creat Clear Calc 63.7 Estimated GFR > 60 Random Glucose 98 (60-115) mg/dL Calcium 9.6 (8.4-10.2) mg/dL Total Bilirubin 0.2 (0.0-1.0) mg/dL Direct Bilirubin < 0.2 (0.0-0.5) mg/dL AST 17 (5-31) U/L ALT 14 (0-31) U/L Alkaline Phosphatase 76 (39-117) U/L C-Reactive Protein < 0.10 (< or = 0.50) mg/dL Total Protein 6.9 (6.5-8.0) g/dL Albumin 4.3 (3.5-5.0) g/dL Lipase 45 (8-78) U/L TSH 5.16 H (0.32-4.0) uIU/mL Free T4 1.10 (0.71-1.85) ng/dL Urine Color Yellow Urine Appearance Clear Urine pH 7.5 (5.0-9.0) Ur Specific [place] <= 1.005 (1.005-1.025) Urine Protein Negative (Neg-Trace) mg/dL Urine Glucose (UA) Negative (Negative) mg/dL Urine Ketones Negative (Negative) mg/dL Urine Blood Negative (Negative) Urine Nitrite Negative (Negative) Ur Leukocyte Esterase Trace H (Negative) Urine RBC 0-2 (0-2) /HPF Urine WBC 0-5 (0-5) /HPF Ur Squamous Epith Cells 0-2 (0-2) /HPF Urine Bacteria None Seen (None Seen) Hyaline Casts 0-2 (0-2) /LPF Urine Opiates Screen Not Detected (Not Detect) Urine Fentanyl Screen Not Detected (Not Detect) Ur Barbiturates Screen Not Detected (Not Detect) Ur Phencyclidine Scrn Not Detected (Not Detect) Ur Amphetamines Screen Not Detected (Not Detect) U Benzodiazepines Scrn POSITIVE H (Not Detect) Urine Cocaine Screen Not Detected (Not Detect) U Marijuana (THC) Screen Not Detected (Not Detect) Ethyl Alcohol < 10 mg/dL DEMARCUS Screen (NEGATIVE) DEMARCUS Titer DEMARCUS Titer 2 DEMARCUS Titer 3 DEMARCUS Pattern DEMARCUS Pattern 2 DEMARCUS Pattern 3 TSH Receptor Ab (<=2.00) IU/L T.pallidum Ab (EIA) (Nonreactive) Influenza Type A (PCR) (Negative) Influenza Type B (PCR) (Negative) RSV RNA Qual (PCR) (Negative) SARS-CoV-2 RNA (RT-PCR) (Negative) 03/29/22 03/29/22 Range/Units 14:05 14:05 WBC (4.8-10.8) X10*3/uL RBC (4.20-5.50) X10*6/uL Hgb (12.0-16.0) g/dl Hct (37.0-47.0) % MCV (80.0-98.0) fL MCH (27.0-33.0) pg MCHC (31.0-35.0) g/dl RDW (11.0-16.0) % Plt Count (160-400) X10*3/uL MPV (9.4-12.3) fL Immature Gran % (Auto) (0.0-0.4) % Neut % (Auto) (45-73) % Lymph % (Auto) (20-40) % [place] % (Auto) (2-11) % Eos % (Auto) (0-4) % Baso % (Auto) (0-2) % Lymph # (Auto) (1.2-4.9) X10*3/uL [place] # (Auto) (0.1-1.2) X10*3/uL Eos # (Auto) (0.0-0.4) X10*3/uL Baso # (Auto) (0.0-0.2) X10*3/uL Abs Immat Gran (auto) (0.00-0.03) X10*3/uL Absolute Neuts (auto) (2.0-8.3) x10*3/uL Absolute Nucleated RBC (0.0-0.012) X10*3/uL Nucleated RBC % (auto) (0.0-0.2) /100WBC Sodium (135-145) mmol/L Potassium (3.3-5.1) mmol/L Chloride (96-108) mmol/L Carbon Dioxide (22-29) mmol/L Anion Gap (12-20) BUN (9-16) mg/dL Creatinine (0.5-1.4) mg/dL Estim Creat Clear Calc Estimated GFR Random Glucose (60-115) mg/dL Calcium (8.4-10.2) mg/dL Total Bilirubin (0.0-1.0) mg/dL Direct Bilirubin (0.0-0.5) mg/dL AST (5-31) U/L ALT (0-31) U/L Alkaline Phosphatase (39-117) U/L C-Reactive Protein (< or = 0.50) mg/dL Total Protein (6.5-8.0) g/dL Albumin (3.5-5.0) g/dL Lipase (8-78) U/L TSH (0.32-4.0) uIU/mL Free T4 (0.71-1.85) ng/dL Urine Color Urine Appearance Urine pH (5.0-9.0) Ur Specific [place] (1.005-1.025) Urine Protein (Neg-Trace) mg/dL Urine Glucose (UA) (Negative) mg/dL Urine Ketones (Negative) mg/dL Urine Blood (Negative) Urine Nitrite (Negative) Ur Leukocyte Esterase (Negative) Urine RBC (0-2) /HPF Urine WBC (0-5) /HPF Ur Squamous Epith Cells (0-2) /HPF Urine Bacteria (None Seen) Hyaline Casts (0-2) /LPF Urine Opiates Screen (Not Detect) Urine Fentanyl Screen (Not Detect) Ur Barbiturates Screen (Not Detect) Ur Phencyclidine Scrn (Not Detect) Ur Amphetamines Screen (Not Detect) U Benzodiazepines Scrn (Not Detect) Urine Cocaine Screen (Not Detect) U Marijuana (THC) Screen (Not Detect) Ethyl Alcohol mg/dL DEMARCUS Screen NEGATIVE (NEGATIVE) DEMARCUS Titer TNP DEMARCUS Titer 2 TNP DEMARCUS Titer 3 TNP DEMARCUS Pattern TNP DEMARCUS Pattern 2 TNP DEMARCUS Pattern 3 TNP TSH Receptor Ab <1.00 (<=2.00) IU/L T.pallidum Ab (EIA) (Nonreactive) Influenza Type A (PCR) (Negative) Influenza Type B (PCR) (Negative) RSV RNA Qual (PCR) (Negative) SARS-CoV-2 RNA (RT-PCR) (Negative) <Ayaan Bonilla MD - Last Filed: 04/08/22 18:44> Independent Interpretation I performed an independent interpretation of an: EKG and CT Scan <AARON Lee - Last Filed: 03/29/22 17:59> Interpretation: normal sinus rhythm, ventricular rate 76 beats per minute, normal ID interval, normal QTC, no ST segment elevations or depressions. ct head normal <AARON Lee - Last Filed: 03/29/22 17:59> Radiology Impression Discussion of test interpretation with radiology: I have reviewed the radiologist's reading. <AARON Lee - Last Filed: 03/29/22 17:59> Radiologist Impression: IMPRESSION: No acute intracranial pathology. <AARON Lee - Last Filed: 03/29/22 17:59> Independent Historian Clinical information obtained from an independent historian. History obtained from or confirmed by: EMS <AARON Lee - Last Filed: 03/29/22 17:59> Attestation Attending Attestation: Her review the documentation in chart for this patient and was seen primarily by the nurse practitioner/PA. I agree with the assessment and plan. <Ayaan Bonilla MD - Last Filed: 04/08/22 18:44> Critical Care Time Critical Care Time Critical Care Time: Yes <AARON Lee - Last Filed: 03/29/22 17:59> Total Critical Care Time: 39 <AARON Lee - Last Filed: 03/29/22 17:59> Attestation: I have personally provided critical care time exclusive of time spent on separately billable procedures. Time includes review of lab data, radiology results, discussion with consultants, and monitoring for potential decompensation. Intervention performed as documented. <AARON Lee - Last Filed: 03/29/22 17:59> Discharge Plan Discharge Clinical Impression: Acute psychosis <AARON Lee - Last Filed: 03/29/22 17:59> Patient Disposition: Admitted As Inpatient <AARON Lee - Last Filed: 03/29/22 17:59> Interventions: Admission Worksheet (ED) Last Done: 03/30/22 12:08 <AARON Lee - Last Filed: 03/29/22 17:59> Discharge Date/Time: 03/30/22 12:08 <AARON Lee - Last Filed: 03/29/22 17:59>
[2022-03-29 08:22] LABS: Alanine Aminotransferase 14 U/L (0-31); Albumin Level 4.3 g/dL (3.5-5.0); Alkaline Phosphatase 76 U/L (39-117); Anion Gap 14 (12-20); Aspartate Amino Transferase 17 U/L (5-31); Bilirubin Direct < 0.2 mg/dL (0.0-0.5); Bilirubin Total 0.2 mg/dL (0.0-1.0); Blood Urea Nitrogen 17 mg/dL (9-16); Calcium 9.6 mg/dL (8.4-10.2); Carbon Dioxide 28 mmol/L (22-29); Chloride 107 mmol/L (96-108); Creatinine Clr Calc Pharmacy 63.7; Estimated Glomerular Filt Rate > 60; Ethanol < 10 mg/dL; Glucose Random 98 mg/dL (60-115); Lipase 45 U/L (8-78); Potassium 4.6 mmol/L (3.3-5.1); Sodium 144 mmol/L (135-145); Total Protein 6.9 g/dL (6.5-8.0)
[2022-03-29 08:30] LABS: Influenza A PCR NEGATIVE (Negative); Influenza B PCR NEGATIVE (Negative); Resp Syncy Virus RNA Qual PCR NEGATIVE (Negative); SARS COV2 PCR INHOUSE NEGATIVE (Negative)
[2022-03-29 08:54] LABS: Appearance Urine Clear; Color Urine Yellow; Glucose Urine UA Negative (Negative); Leukocyte Esterase Urine Trace (Negative); Nitrite Urine Negative (Negative); PH 7.5 (5.0-9.0); Specific Gravity - Urine <= 1.005 (1.005-1.025); UMIC TRIGGER UACC YES; Urine Blood Negative (Negative); Urine Ketones Negative (Negative); Urine Protein Negative (Neg-Trace)
[2022-03-29 08:57] LABS: Bacteria Urine None Seen (None Seen); Hyaline Casts Urine 0-2 /LPF (0-2); RBC Urine 0-2 /HPF (0-2); Squamous Epithelial Cell Urine 0-2 /HPF (0-2); WBC Urine 0-5 /HPF (0-5)
[2022-03-29 08:58] LABS: Amphetamine Screen Urine Not Detected (Not Detect); Barbiturates, Urine Not Detected (Not Detect); Benzodiazepines Screen Urine POSITIVE (Not Detect); Cannabinoid Screen Urine Not Detected (Not Detect); Cocaine Screen Urine Not Detected (Not Detect); Fentanyl, urine Not Detected (Not Detect); Opiate Screen Urine Not Detected (Not Detect); Phencyclidine Screen Urine Not Detected (Not Detect)
[2022-03-29 09:54] LABS: Thyroid Stimulating Hormone 5.16 uIU/mL (0.32-4.0)
[2022-03-29 14:17] LABS: C Reactive Protein < 0.10 mg/dL (< or = 0.50)
--- NOTE | 2022-03-29 15:26 | PC.NURSE ---
Pt to MRI at this time.
--- NOTE | 2022-03-29 15:33 | PC.NURSE ---
Verbal order by Hayley GUDINO For 5mg haldol/2mg Ativan PO. Pt refused medication will not control me .
--- NOTE | 2022-03-29 15:45 | PC.NURSE ---
Pt attempted to run multiple times en route to MRI. for patient safety, pt was brought back to pod. Pt is visibly upset and angry. the charade is up . Notified inpt psychiatric nursing assistant, CARE TEAM, brendan WALKER. Due to escalating behaviors, pt will be given chemical restraint.
--- NOTE | 2022-03-29 15:51 | P.CNPS_ITS ---
History of Present Illness Date of Service: 03/29/2022 Chief Complaint: CRISIS Reason for Consult: paranoia for past month Requesting physician: Merry Haney Discussed with referring provider: Yes Sources of Information: patient interviewed, chart reviewed and crisis/core team assessment reviewed Additional Sources of Information: HPI Narrative: Mrs. Jackson is a 66 year-old woman with no prior psych hx who was brought via EMS after pt presenting increasingly more paranoid and agitated for the past 6 weeks . Per , pt presented with some paranoid (thinking someone had entered her house) 6 weeks ago. This delusion seemed to go away from what can tell but increased again in the past week, to the point that this morning at 4am, pt smashed the TV, was yelling and threatening that someone had entered their house. She reported her liver ahd been stolen. In the ED- CBC with dif mostly unremarkable. CMP also unremarkable, TSH elevated at 5.18, free T4 1.10, CRP less than 0.10. RPR pending. DEMARCUS pending. Head CT with no acute pathology. Utox positive for benzos but she was given one prior to utox. Pt is afebrile. UA wnl, trace of leukocites but no reflex to microscopic. Pt seen in her room. Pt guarded and irritable stating that she does not need to be here. Pt paranoid towards staff, thinks this is conspiracy to keep her here. Pt reports her liver was stolen, does not know by who. When asked about incident of breaking TV- pt reports she remembers doing that but states that's because my was talking about Nazis, which he denies as he states he woke up when she was yelling and breaking things stating someone had broke into their home. Pt denies SI/HI. Pt is oriented to month, year, knows this is [facility] in the ED. She can't tell how long she has been here, and asks this telegraphic typewriter repairer repeatedly to clarify if she has been here for days, weeks or hours. This telegraphic typewriter repairer asked her to complete a clock draw test, pt able to place numbers correctly, some difficulty placing hands and attention fair in that pt kept asking if it was a floor or desk clock this telegraphic typewriter repairer was asking her to draw. [facility] Medical History Acute allergic rhinitis Adjustment disorder with mixed anxiety and depressed mood Anal sphincter incompetence Chronic bilateral low back pain without sciatica Depression Gallstones GERD (gastroesophageal reflux disease) Hypercholesterolemia IBS (irritable bowel syndrome) Lung nodule Other screening mammogram Pelvic floor dysfunction Proctalgia fugax Vulvodynia Surgical History Hx of colonoscopy Hx of tonsillectomy Diagnostics Vital Signs (24Hr): Vital Signs - 24 hr 03/29/22 07:24 03/29/22 07:35 03/29/22 12:00 Temperature 98.3 F Pulse Rate 66 Respiratory Rate 18 18 16 Blood Pressure 143/72 H Pulse Oximetry 95 Oxygen Delivery Method Room Air 03/29/22 14:00 Temperature Pulse Rate Respiratory Rate 16 Blood Pressure Pulse Oximetry Oxygen Delivery Method BMI result Body Mass Index 24.0 Labs 03/29/22 07:43 03/29/22 07:43 Labs: Laboratory Results - last 48 hr 03/29/22 03/29/22 03/29/22 07:37 07:43 07:43 WBC 5.9 RBC 4.71 Hgb 13.7 Hct 42.3 MCV 89.8 MCH 29.1 MCHC 32.4 RDW 14.0 Plt Count 284 MPV 10.6 Immature Gran % (Auto) 0.5 H Neut % (Auto) 54.0 Lymph % (Auto) 26.7 [place] % (Auto) 8.1 Eos % (Auto) 9.7 H Baso % (Auto) 1.0 Lymph # (Auto) 1.6 [place] # (Auto) 0.5 Eos # (Auto) 0.6 H Baso # (Auto) 0.1 Abs Immat Gran (auto) 0.03 Absolute Neuts (auto) 3.2 Absolute Nucleated RBC 0.000 Nucleated RBC % (auto) 0.0 Sodium 144 Potassium 4.6 Chloride 107 Carbon Dioxide 28 Anion Gap 14 BUN 17 H Creatinine 0.77 Estim Creat Clear Calc 63.7 Estimated GFR > 60 Random Glucose 98 Calcium 9.6 Total Bilirubin 0.2 Direct Bilirubin < 0.2 AST 17 ALT 14 Alkaline Phosphatase 76 C-Reactive Protein < 0.10 Total Protein 6.9 Albumin 4.3 Lipase 45 TSH 5.16 H Free T4 1.10 Urine Color Urine Appearance Urine pH Ur Specific [place] Urine Protein Urine Glucose (UA) Urine Ketones Urine Blood Urine Nitrite Ur Leukocyte Esterase Urine RBC Urine WBC Ur Squamous Epith Cells Urine Bacteria Hyaline Casts Urine Opiates Screen Urine Fentanyl Screen Ur Barbiturates Screen Ur Phencyclidine Scrn Ur Amphetamines Screen U Benzodiazepines Scrn Urine Cocaine Screen U Marijuana (THC) Screen Ethyl Alcohol < 10 Influenza Type A (PCR) NEGATIVE Influenza Type B (PCR) NEGATIVE RSV RNA Qual (PCR) NEGATIVE SARS-CoV-2 RNA (RT-PCR) NEGATIVE 03/29/22 03/29/22 08:41 08:41 WBC RBC Hgb Hct MCV MCH MCHC RDW Plt Count MPV Immature Gran % (Auto) Neut % (Auto) Lymph % (Auto) [place] % (Auto) Eos % (Auto) Baso % (Auto) Lymph # (Auto) [place] # (Auto) Eos # (Auto) Baso # (Auto) Abs Immat Gran (auto) Absolute Neuts (auto) Absolute Nucleated RBC Nucleated RBC % (auto) Sodium Potassium Chloride Carbon Dioxide Anion Gap BUN Creatinine Estim Creat Clear Calc Estimated GFR Random Glucose Calcium Total Bilirubin Direct Bilirubin AST ALT Alkaline Phosphatase C-Reactive Protein Total Protein Albumin Lipase TSH Free T4 Urine Color Yellow Urine Appearance Clear Urine pH 7.5 Ur Specific [place] <= 1.005 Urine Protein Negative Urine Glucose (UA) Negative Urine Ketones Negative Urine Blood Negative Urine Nitrite Negative Ur Leukocyte Esterase Trace H Urine RBC 0-2 Urine WBC 0-5 Ur Squamous Epith Cells 0-2 Urine Bacteria None Seen Hyaline Casts 0-2 Urine Opiates Screen Not Detected Urine Fentanyl Screen Not Detected Ur Barbiturates Screen Not Detected Ur Phencyclidine Scrn Not Detected Ur Amphetamines Screen Not Detected U Benzodiazepines Scrn POSITIVE H Urine Cocaine Screen Not Detected U Marijuana (THC) Screen Not Detected Ethyl Alcohol Influenza Type A (PCR) Influenza Type B (PCR) RSV RNA Qual (PCR) SARS-CoV-2 RNA (RT-PCR) Imaging Radiology Impressions: ITS Impressions Head CT 03/29/22 09:03 IMPRESSION: No acute intracranial pathology. Mental Status Exam Mental Status Exam Narrative: Appearance: wearing hospital gown, in bed, covered with blanket, disheveled, in NAD Behavior: guarded and irritable Psychomotor: no agitation or retardation noted while meeting but after demanding to leave and yelling code red. Speech: mumbles at times, regular rate/rhythm/volume, spontaneous TP: tangential TC: paranoid ideas of liver being stolen, someone entering her house Mood: fine Affect: irritable, guarded SI: denies HI: denies AV/VH: denies Delusions: paranoid delusions Memory/cog: alert, oriented to place, month, year not situation, not sure how long she has been in the hospital Medications Allergies Allergies Allergy/AdvReac Type Severity Reaction Status Date / Time cat dander Allergy Unknown Unknown Verified 10/29/21 15:00 ciprofloxacin Allergy Unknown gastritis Verified 10/29/21 15:00 gabapentin Allergy Unknown Anaphylaxis Verified 10/29/21 15:00 hornet venom [HORNETS] Allergy Unknown ANAPHYLACTI Verified 10/29/21 15:00 C latex Allergy Unknown Rash Verified 10/29/21 15:00 metronidazole Allergy Unknown GI distress Verified 10/29/21 15:00 pregabalin [From Lyrica] Allergy Unknown Angioedema Verified 10/29/21 15:00 sorbitol [SORBITOL] Allergy Unknown RASH Verified 10/29/21 15:00 sulfamethoxazole Allergy Unknown RASH Verified 10/29/21 15:00 [From BACTRIM] sulfasalazine Allergy Unknown Rash Verified 10/29/21 15:00 trimethoprim [From BACTRIM] Allergy Unknown RASH Verified 10/29/21 15:00 medrol dose pack Allergy Severe face Uncoded 10/16/21 15:50 swelling DUST Allergy Unknown SINUS Uncoded 10/16/21 15:50 INFECTION bandaids Allergy Unknown Uncoded 10/16/21 15:50 contrast Allergy rash on Uncoded 10/16/21 15:50 face betamethasone dipropriate AdvReac Severe rash Uncoded 10/16/21 15:50 Assessment & Plan Assessment & Plan (1) Psychosis: Status: Acute Code(s): F29 - Unspecified psychosis not due to a substance or known physiological condition Plan Mrs. Jackson is a 66 year-old woman with no prior psych hx who presents with subacute onset of paranoia for the past 6 weeks (thinking someone is breaking into their home, stole her liver) which according to is increasing in intensity and frequency to the point that this morning at 4am, pt yelling, smashed TV, agitated and combative. In the ED- medical work up mostly unremarkable including: CBC with dif mostly unremarkable. CMP also unremarkable, TSH elevated at 5.18, free T4 1.10, CRP less than 0.10. RPR pending. DEMARCUS pending. Head CT with no acute pathology. Utox positive for benzos but she was given one prior to utox. Pt is afebrile. UA wnl, trace of leukocites but no reflex to microscopic. This is an unusual presentation for typical psychiatric conditions. Case discussed with ED attending, who discussed case with Dr. Greenwood and case also consulted with Dr. Rodriguez Yarbrough (psychiatry). At this point medicine does not think there is reason to admit to medical floor. Pending neurology consult- r/o neurologic and neuro-immune related conditions that could present initially with psychiatric symptoms. Pending MRI, if no acute finding, pt to be admitted to [facility]. PLAN 1. will start risperidone 1mg po BID, olanzapine prn for agitation with ativan. Monitor EKG, d/c antipsychotic if Qtc> 500ms, Maintain K>4, Mg>2. 2. admit to [facility], pending neuro consult can be done while psych unit. Total time managing care of this patient today ____ minutes.
[2022-03-29] MEDS: Haloperidol Lactate 5 MG/ML VIAL IM (16:00)
[2022-03-29] MEDS: LORazepam 2 MG/ML VIAL IM (16:00)
--- NOTE | 2022-03-30 05:57 | PC.NURSE ---
Patient slept though evening/night, no distress observed/reported, patient was S/P chemical restraint, med rec completed/pending provider's approval/no psychiatric medication on med list, patient was assessed by care team disposition is section 12 inpatient bed search, possible S1 admission today, patient has been refusing VS assessment, we will approach when patient is awake, will continue to monitor.
[2022-03-30 06:32] VITALS: BP 131/53; PULSE 93; RESP 10; TEMP 36.8; O2SAT 95
--- NOTE | 2022-03-30 08:32 | PC.NURSE ---
Pt refusing to take her risperdone I don't take medications . Pt stating she is going home today. plan to admit to clau
[2022-03-30 09:08] LABS: Syphilis Screen Nonreactive (Nonreactive)
--- NOTE | 2022-03-30 13:58 | P.HPPS_ITS ---
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 A number of days ago Kaycee had a fall and banged the left side of her head and was ordered an MRI which was supposed to be done on 03/29/2022 however she did not want to do it and the day before she became angry and agitated over this and started to shout, throwing things against the wall, broke a flat screen TV and through 2 speakers to the wall etc.. The police were called and she was brought to the emergency room were she was physically and chemically restrained. According to her she has been showing signs of irritability, paranoia, suspiciousness. He also stated that she would have episodes and periods of talking about the issues that she was paranoid and suspicious about and then would have periods of clarity and no agitation. Talking about someone may be trying to poison her, something pertaining to which is etc.. When I confronted her with these she essentially said that she has had bad experiences with medications in the past and is very suspicious of the affect of medicine on her ex cetera. She has had allergic reactions to gabapentin and Lyrica. No suicidal or homicidal ideations. She has not been sleeping too well and has been sleeping with the lights on for some time. She has been able to do her work around the house with cooking and cleaning. No prior major psychiatric treatments other than when 1 of her brothers in 2019 she had sought some outpatient counseling and also when her father some years earlier. Past Psychiatric History: Brief outpatient therapy and use of Zoloft around the time she started her menopause she was given Zoloft that she took very briefly and stopped because it made her very flat emotionally Medical Evaluation Reviewed: Hospitalist Jyotsna Pending [facility] Medical History Acute allergic rhinitis Adjustment disorder with mixed anxiety and depressed mood Anal sphincter incompetence Chronic bilateral low back pain without sciatica Depression Gallstones GERD (gastroesophageal reflux disease) Hypercholesterolemia IBS (irritable bowel syndrome) Lung nodule Other screening mammogram Pelvic floor dysfunction Proctalgia fugax Vulvodynia Surgical History Hx of colonoscopy Hx of tonsillectomy Family History: Unknown Social History: Kaycee was born and raised in [place]. She states that both her parents are . She had a brother who in 2019 and that was difficult for her. She came to this area when she was 39. She had an aunt who lived in [place] and after that she liked the area and decided to stay. She then met her and they got fairly quickly. 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 She currently lives with her Substance History: None Diagnostics Vital Signs (24Hr): Vital Signs - 24 hr 03/29/22 14:00 03/29/22 16:00 03/29/22 16:15 Temperature Pulse Rate Respiratory Rate 16 24 H 20 Blood Pressure Pulse Oximetry Oxygen Delivery Method 03/29/22 16:30 03/29/22 16:45 03/29/22 17:00 Temperature Pulse Rate Respiratory Rate 16 16 16 Blood Pressure Pulse Oximetry Oxygen Delivery Method 03/30/22 06:32 Temperature 98.2 F Pulse Rate 93 Respiratory Rate 10 L Blood Pressure 131/53 L Pulse Oximetry 95 Oxygen Delivery Method Room Air BMI result Body Mass Index 24.0 Labs 03/29/22 07:43 03/29/22 07:43 Labs: Laboratory Results - last 48 hr 03/29/22 03/29/22 03/29/22 07:37 07:37 07:43 WBC 5.9 RBC 4.71 Hgb 13.7 Hct 42.3 MCV 89.8 MCH 29.1 MCHC 32.4 RDW 14.0 Plt Count 284 MPV 10.6 Immature Gran % (Auto) 0.5 H Neut % (Auto) 54.0 Lymph % (Auto) 26.7 [place] % (Auto) 8.1 Eos % (Auto) 9.7 H Baso % (Auto) 1.0 Lymph # (Auto) 1.6 [place] # (Auto) 0.5 Eos # (Auto) 0.6 H Baso # (Auto) 0.1 Abs Immat Gran (auto) 0.03 Absolute Neuts (auto) 3.2 Absolute Nucleated RBC 0.000 Nucleated RBC % (auto) 0.0 Sodium Potassium Chloride Carbon Dioxide Anion Gap BUN Creatinine Estim Creat Clear Calc Estimated GFR Random Glucose Calcium Total Bilirubin Direct Bilirubin AST ALT Alkaline Phosphatase C-Reactive Protein Total Protein Albumin Lipase TSH Free T4 Urine Color Urine Appearance Urine pH Ur Specific [place] Urine Protein Urine Glucose (UA) Urine Ketones Urine Blood Urine Nitrite Ur Leukocyte Esterase Urine RBC Urine WBC Ur Squamous Epith Cells Urine Bacteria Hyaline Casts Urine Opiates Screen Urine Fentanyl Screen Ur Barbiturates Screen Ur Phencyclidine Scrn Ur Amphetamines Screen U Benzodiazepines Scrn Urine Cocaine Screen U Marijuana (THC) Screen Ethyl Alcohol T.pallidum Ab (EIA) Nonreactive Influenza Type A (PCR) NEGATIVE Influenza Type B (PCR) NEGATIVE RSV RNA Qual (PCR) NEGATIVE SARS-CoV-2 RNA (RT-PCR) NEGATIVE 03/29/22 03/29/22 03/29/22 07:43 08:41 08:41 WBC RBC Hgb Hct MCV MCH MCHC RDW Plt Count MPV Immature Gran % (Auto) Neut % (Auto) Lymph % (Auto) [place] % (Auto) Eos % (Auto) Baso % (Auto) Lymph # (Auto) [place] # (Auto) Eos # (Auto) Baso # (Auto) Abs Immat Gran (auto) Absolute Neuts (auto) Absolute Nucleated RBC Nucleated RBC % (auto) Sodium 144 Potassium 4.6 Chloride 107 Carbon Dioxide 28 Anion Gap 14 BUN 17 H Creatinine 0.77 Estim Creat Clear Calc 63.7 Estimated GFR > 60 Random Glucose 98 Calcium 9.6 Total Bilirubin 0.2 Direct Bilirubin < 0.2 AST 17 ALT 14 Alkaline Phosphatase 76 C-Reactive Protein < 0.10 Total Protein 6.9 Albumin 4.3 Lipase 45 TSH 5.16 H Free T4 1.10 Urine Color Yellow Urine Appearance Clear Urine pH 7.5 Ur Specific [place] <= 1.005 Urine Protein Negative Urine Glucose (UA) Negative Urine Ketones Negative Urine Blood Negative Urine Nitrite Negative Ur Leukocyte Esterase Trace H Urine RBC 0-2 Urine WBC 0-5 Ur Squamous Epith Cells 0-2 Urine Bacteria None Seen Hyaline Casts 0-2 Urine Opiates Screen Not Detected Urine Fentanyl Screen Not Detected Ur Barbiturates Screen Not Detected Ur Phencyclidine Scrn Not Detected Ur Amphetamines Screen Not Detected U Benzodiazepines Scrn POSITIVE H Urine Cocaine Screen Not Detected U Marijuana (THC) Screen Not Detected Ethyl Alcohol < 10 T.pallidum Ab (EIA) Influenza Type A (PCR) Influenza Type B (PCR) RSV RNA Qual (PCR) SARS-CoV-2 RNA (RT-PCR) Imaging Radiology Impressions: ITS Impressions Head CT 03/29/22 09:03 IMPRESSION: No acute intracranial pathology. Meds/Allergies Meds Home Medications Medication Instructions Recorded Confirmed Type albuterol sulfate 90 mcg/actuation 2 puff inhalation Q4H PRN 03/29/22 03/29/22 History aerosol inhaler Shortness Of Breath Or Wheezing epinephrine 0.3 mg/0.3 mL 0.3 mg IM DIRECTED 03/29/22 03/30/22 History injection, auto-injector (EpiPen 2-Hebert) ezetimibe 10 mg tablet 1 tab PO DAILY 03/29/22 03/29/22 History loratadine 10 mg tablet 1 tab PO DAILY 03/29/22 03/29/22 History Allergies Allergies Allergy/AdvReac Type Severity Reaction Status Date / Time cat dander Allergy Unknown Unknown Verified 10/29/21 15:00 ciprofloxacin Allergy Unknown gastritis Verified 10/29/21 15:00 gabapentin Allergy Unknown Anaphylaxis Verified 10/29/21 15:00 hornet venom [HORNETS] Allergy Unknown ANAPHYLACTI Verified 10/29/21 15:00 C latex Allergy Unknown Rash Verified 10/29/21 15:00 metronidazole Allergy Unknown GI distress Verified 10/29/21 15:00 pregabalin [From Lyrica] Allergy Unknown Angioedema Verified 10/29/21 15:00 sorbitol [SORBITOL] Allergy Unknown RASH Verified 10/29/21 15:00 sulfamethoxazole Allergy Unknown RASH Verified 10/29/21 15:00 [From BACTRIM] sulfasalazine Allergy Unknown Rash Verified 10/29/21 15:00 trimethoprim [From BACTRIM] Allergy Unknown RASH Verified 10/29/21 15:00 medrol dose pack Allergy Severe face Uncoded 10/16/21 15:50 swelling DUST Allergy Unknown SINUS Uncoded 10/16/21 15:50 INFECTION bandaids Allergy Unknown Uncoded 10/16/21 15:50 contrast Allergy rash on Uncoded 10/16/21 15:50 face betamethasone dipropriate AdvReac Severe rash Uncoded 10/16/21 15:50 Mental Status Exam Mental Status Exam Narrative: Kaycee was seen the day of her admission to this unit. She is alert, oriented to time place and person. Speech is normal. Good eye contact. Affect is appropriate and contained. No signs of agitation at this time. She is pleasant and cooperative. She is able to answer questions appropriately but is somewhat tangential and circumstantial. She was able to remember 2/3 objects in 5 minutes. No further formal testing was done at this time She downplayed Summa of the recent episodes and presentations, described by her . She denies any suicidal or homicidal ideations. There is some degree of paranoia present. Judgment is generally it intact at this point except for the events of recent times. Assessment & Plan Assessment & Plan (1) Acute psychosis: Status: Acute Code(s): F23 - Brief psychotic disorder Plan In conclusion based on recent events Kaycee was admitted on a Section 12 be for now. She meets the hospital level of care criteria for safety and stabilization and further diagnostic explorations. She has been seen by neurologist and maybe another consult and pursuing of the MRI would be advisable. Risperdal 1 mg b.i.d. was ordered in the emergency room which I continued in addition to p.r.n. Ativan and Zyprexa. Side effects reviewed. Patient educated on: diagnosis, medication risk/benefits and therapeutic str ategies Reason for continued inpatient stay Substantial Risk for: harm to others and med/psych decompensation Statement Statement: I have reviewed the history and physical and performed a pertinent examination on my patient. No changes have occurred unless specified. If the History and Physical was not performed prior to admission, the Hospitalist's service will be consulted for completing the admission physical. Time Spent With Patient Time: Total time managing care of this patient today ____ minutes.
[2022-03-30 18:00] VITALS: BP 146/62; PULSE 84; RESP 16; TEMP 36.4; O2SAT 94
[2022-03-31 06:37] LABS: MANUAL DIFF FLAG NO
[2022-03-31 06:40] LABS: Basophils Absolute Auto 0.1 X10*3/uL (0.0-0.2); Basophils Percent Auto 0.8 % (0-2); Eosinophils Absolute Auto 0.3 X10*3/uL (0.0-0.4); Eosinophils Percent Auto 3.6 % (0-4); Hematocrit 42.2 % (37.0-47.0); Hemoglobin 14.3 g/dl (12.0-16.0); Imm Gran Abs Auto 0.02 X10*3/uL (0.00-0.03); Imm Gran Pct Auto 0.3 % (0.0-0.4); Lymphocytes Absolute Auto 2.1 X10*3/uL (1.2-4.9); Lymphocytes Percent Auto 28.7 % (20-40); Mean Corpuscular HGB Conc 33.9 g/dl (31.0-35.0); Mean Corpuscular Hemoglobin 29.2 pg (27.0-33.0); Mean Corpuscular Volume 86.3 fL (80.0-98.0); Mean Platelet Volume 10.3 fL (9.4-12.3); Monocytes Absolute Auto 0.6 X10*3/uL (0.1-1.2); Monocytes Percent Auto 8.1 % (2-11); Neutrophils Absolute Auto 4.2 x10*3/uL (2.0-8.3); Neutrophils Percent Auto 58.5 % (45-73); Platelet Count 297 X10*3/uL (160-400); Red Blood Count 4.89 X10*6/uL (4.20-5.50); Red Cell Distribution Width 13.9 % (11.0-16.0); White Blood Count 7.3 X10*3/uL (4.8-10.8)
[2022-03-31 07:10] LABS: Alanine Aminotransferase 16 U/L (0-31); Albumin Level 4.5 g/dL (3.5-5.0); Alkaline Phosphatase 76 U/L (39-117); Anion Gap 15 (12-20); Aspartate Amino Transferase 27 U/L (5-31); Bilirubin Direct 0.2 mg/dL (0.0-0.5); Bilirubin Total 0.7 mg/dL (0.0-1.0); Blood Urea Nitrogen 18 mg/dL (9-16); Calcium 9.7 mg/dL (8.4-10.2); Carbon Dioxide 25 mmol/L (22-29); Chloride 106 mmol/L (96-108); Cholesterol 261 mg/dL; Creatinine Clr Calc Pharmacy 61.3; Estimated Glomerular Filt Rate > 60; Glucose Fasting 116 mg/dL (60-99); HDL Cholesterol 67 mg/dL; LDL Cholesterol Calculated 179 mg/dl; Potassium 3.9 mmol/L (3.3-5.1); Sodium 142 mmol/L (135-145); Total Protein 7.1 g/dL (6.5-8.0); Triglycerides 78 mg/dL
[2022-03-31 07:24] LABS: Thyroid Stimulating Hormone 1.88 uIU/mL (0.32-4.0)
[2022-03-31 07:28] LABS: Estimated Average Glucose 117 mg/dL; Hemoglobin A1c % 5.7 %
[2022-03-31 07:40] LABS: Folate 12.7 ng/mL (> or = 4.0); Vitamin B12 290 pg/mL (200-900)
[2022-03-31 08:50] VITALS: BP 168/78; PULSE 99; RESP 20; TEMP 36.2; O2SAT 96
[2022-03-31] MEDS: Loratadine 10 MG TABLET PO (08:51)
--- NOTE | 2022-03-31 09:47 | PC.NURSE ---
Pt admitted to the floor from ED pod on 03/30/2022, pt refused to sign a CV and is a section 12b. The pt has a history of spinal stenosis to L4-L5, left hip pain, chronic low back pain, GERD, multiple allergies including latex, and adjustment disorder with mixed anxiety and depressed mood. The pt is alert and oriented X3. Pt reports I have nightmares and wake up and think I'm still dreaming, it's hard to tell what is real and what is not Pt reports she feels like her is teasing me in a mean way, telling me that things have not happened when I know they have . Offered the pt a CV, pt stated I don't think I want to sign anything, I need to talk to the Dr. first . The pt reports she is worried about taking medications, stated I don't know if they are what people say they are . Pt signed appropriate ROIs, and was oriented to the unit.
--- NOTE | 2022-03-31 10:48 | HO.PSYCHPN ---
Subjective Subjective Date of Service: 03/31/22 Reason For Visit: aggression Subjective Notes: Section 12B Healthcare Proxy: No Guardianship: No Medical Problems Affecting Mental Status: No Interim History: Patient was seen and discussed in rounds today. Records and plans were reviewed. She did settle in after her admission to the unit quite well. No episodes of agitation. No aggressive behaviors, throwing of objects etc.. She did not take the Risperdal and had several questions about it and wants to start with a nighttime dose tonight and if she tolerates it then she may do 1 in the morning also. No changes were made today. Eating and sleeping adequately Medication Compliance: Intermittent Side effects from medications: No Attending Groups: No Review of Systems Review of Systems Yes all other systems are reviewed and are negative Mental Status Exam Mental Status Exam Narrative: In today's visit she is alert, oriented and pleasant. Normal speech. Good eye contact. Affect is appropriate and somewhat subdued. No overt anxiety. No acute signs of psychosis. Denies any auditory or visual hallucinations. No overt delusions. Paranoid agents suspiciousness present. No SI/HI. Cognitively is generally intact. Judgment is intact at this time Diagnostics Vital Signs (24Hr): Vital Signs - 24 hr 03/30/22 18:00 03/31/22 08:50 Temperature 97.6 F 97.2 F Pulse Rate 84 99 Respiratory Rate 16 20 Blood Pressure 146/62 H 168/78 H Pulse Oximetry 94 96 Oxygen Delivery Method Room Air Room Air BMI result Body Mass Index 24.0 Labs 03/31/22 06:33 03/31/22 06:33 Labs: Laboratory Results - last 48 hr 03/29/22 03/29/22 03/31/22 07:37 07:43 06:33 WBC 7.3 RBC 4.89 Hgb 14.3 Hct 42.2 MCV 86.3 MCH 29.2 MCHC 33.9 RDW 13.9 Plt Count 297 MPV 10.3 Immature Gran % (Auto) 0.3 Neut % (Auto) 58.5 Lymph % (Auto) 28.7 [place] % (Auto) 8.1 Eos % (Auto) 3.6 Baso % (Auto) 0.8 Lymph # (Auto) 2.1 [place] # (Auto) 0.6 Eos # (Auto) 0.3 Baso # (Auto) 0.1 Abs Immat Gran (auto) 0.02 Absolute Neuts (auto) 4.2 Absolute Nucleated RBC 0.000 Nucleated RBC % (auto) 0.0 Sodium Potassium Chloride Carbon Dioxide Anion Gap BUN Creatinine Estim Creat Clear Calc Estimated GFR Fasting Glucose Estimat Average Glucose Hemoglobin A1c % Calcium Total Bilirubin Direct Bilirubin AST ALT Alkaline Phosphatase C-Reactive Protein < 0.10 Total Protein Albumin Triglycerides Cholesterol LDL Cholesterol, Calc HDL Cholesterol Vitamin B12 Folate TSH Free T4 1.10 T.pallidum Ab (EIA) Nonreactive 03/31/22 03/31/22 03/31/22 06:33 06:33 06:33 WBC RBC Hgb Hct MCV MCH MCHC RDW Plt Count MPV Immature Gran % (Auto) Neut % (Auto) Lymph % (Auto) [place] % (Auto) Eos % (Auto) Baso % (Auto) Lymph # (Auto) [place] # (Auto) Eos # (Auto) Baso # (Auto) Abs Immat Gran (auto) Absolute Neuts (auto) Absolute Nucleated RBC Nucleated RBC % (auto) Sodium 142 Potassium 3.9 Chloride 106 Carbon Dioxide 25 Anion Gap 15 BUN 18 H Creatinine 0.80 Estim Creat Clear Calc 61.3 Estimated GFR > 60 Fasting Glucose 116 H Estimat Average Glucose 117 Hemoglobin A1c % 5.7 Calcium 9.7 Total Bilirubin 0.7 Direct Bilirubin 0.2 AST 27 ALT 16 Alkaline Phosphatase 76 C-Reactive Protein Total Protein 7.1 Albumin 4.5 Triglycerides 78 Cholesterol 261 LDL Cholesterol, Calc 179 HDL Cholesterol 67 Vitamin B12 290 Folate 12.7 TSH 1.88 Free T4 T.pallidum Ab (EIA) Imaging Radiology Impressions: ITS Impressions Head CT 03/29/22 09:03 IMPRESSION: No acute intracranial pathology. Medications Medications Current Medications Acetaminophen (Acetaminophen 325 Mg Tablet) 650 mg PO Q6H PRN PRN Reason: Headache/Pain Mild Scale (1-3) Al Hydroxide/Mg Hydroxide (Magnesium Hydrox/Alum Hydrox 30 Ml Oral.Susp) 30 ml PO Q6H PRN PRN Reason: Heartburn/Nausea Albuterol Sulfate (Albuterol Sulfate 90 Mcg 8 Gm Inhaler) 2 puff INHALE Q4H PRN PRN Reason: Shortness Of Breath Or Wheezing Ezetimibe (Ezetimibe 10 Mg Tablet) 10 mg PO DAILY [facility] Last Admin: 03/31/22 08:55 Dose: Not Given Epinephrine (Epinephrine 1 Mg/Ml Vial) 0.3 mg IM ONCE PRN PRN Reason: ALLERGY Hydroxyzine HCl (Hydroxyzine Hcl 25 Mg Tablet) 25 mg PO Q6H PRN PRN Reason: Anxiety Loratadine (Loratadine 10 Mg Tablet) [address] [facility] Last Admin: 03/31/22 08:51 Dose: 10 mg Lorazepam (Lorazepam 0.5 Mg Tablet) 0.5 mg PO Q4H PRN PRN Reason: Anxiety Olanzapine (Olanzapine 5 Mg Tablet) 5 mg PO Q6H PRN PRN Reason: agitation Risperidone (Risperidone 1 Mg Tablet) [address] [facility] Last Admin: 03/31/22 09:05 Dose: Not Given Trazodone HCl (Trazodone Hcl 50 Mg Tablet) 50 mg PO BEDTIME PRN PRN Reason: Insomnia Allergies Allergies Allergy/AdvReac Type Severity Reaction Status Date / Time cat dander Allergy Unknown Unknown Verified 10/29/21 15:00 ciprofloxacin Allergy Unknown gastritis Verified 10/29/21 15:00 gabapentin Allergy Unknown Anaphylaxis Verified 10/29/21 15:00 hornet venom [HORNETS] Allergy Unknown ANAPHYLACTI Verified 10/29/21 15:00 C latex Allergy Unknown Rash Verified 10/29/21 15:00 metronidazole Allergy Unknown GI distress Verified 10/29/21 15:00 pregabalin [From Lyrica] Allergy Unknown Angioedema Verified 10/29/21 15:00 sorbitol [SORBITOL] Allergy Unknown RASH Verified 10/29/21 15:00 sulfamethoxazole Allergy Unknown RASH Verified 10/29/21 15:00 [From BACTRIM] sulfasalazine Allergy Unknown Rash Verified 10/29/21 15:00 trimethoprim [From BACTRIM] Allergy Unknown RASH Verified 10/29/21 15:00 medrol dose pack Allergy Severe face Uncoded 10/16/21 15:50 swelling DUST Allergy Unknown SINUS Uncoded 10/16/21 15:50 INFECTION bandaids Allergy Unknown Uncoded 10/16/21 15:50 contrast Allergy rash on Uncoded 10/16/21 15:50 face betamethasone dipropriate AdvReac Severe rash Uncoded 10/16/21 15:50 Assessment & Plan Assessment & Plan (1) Acute psychosis: Status: Acute Code(s): F23 - Brief psychotic disorder Plan In conclusion based on recent events Kaycee was admitted on a Section 12 be for now. She meets the hospital level of care criteria for safety and stabilization and further diagnostic explorations. She has been seen by neurologist and maybe another consult and pursuing of the MRI would be advisable. Risperdal 1 mg b.i.d. was ordered in the emergency room which I continued in addition to p.r.n. Ativan and Zyprexa. Side effects reviewed. On: Continue current regimen and plans Patient educated on: medication risk/benefits Reason for contiued inpatient stay Substantial Risk for: med/psych decompensation Time Spent With Patient Time: Total time managing care of this patient today ____ minutes.
[2022-03-31 18:00] VITALS: BP 146/75; PULSE 76; RESP 16; TEMP 36.3; O2SAT 92
[2022-04-01 08:00] VITALS: BP 131/65; PULSE 87; RESP 16; TEMP 36.3; O2SAT 94
[2022-04-01 09:09] LABS: Anti Nuclear Antibody Screen NEGATIVE (NEGATIVE)
[2022-04-01] MEDS: Loratadine 10 MG TABLET PO (09:31)
--- NOTE | 2022-04-01 09:52 | P.CNNE_ITS ---
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 She had consulted physicians in [place] and bring him in [facility] and also had a fluoroscopic pain management procedure in this hospital with no resolution. She also was prescribed medicines like gabapentin and pregabalin, which apparently resulted in side effects. Either from those side effects or because of underlying psychological condition, she became extremely concerned and anxious about medicines to the point of paranoia. She was laid off for [employer] few years ago. She did not have any children. She was admitted hospital with behavioral symptoms elaborated on psychiatric note. Apparently this kind of behavior was new for her. She said that she had not seen a neurologist before. There was no history of or complaints of any significant headaches rash or medical illness. 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 When I interviewed her, she was most concerned that her dose of loratadine was given to her at the wrong time. She used to take it at noon time and it was given earlier. Review of Systems Review of Systems: No recent cold or flu-like illness. [facility] Past Medical History Medical History Acute allergic rhinitis Adjustment disorder with mixed anxiety and depressed mood Anal sphincter incompetence Chronic bilateral low back pain without sciatica Depression Gallstones GERD (gastroesophageal reflux disease) Hypercholesterolemia IBS (irritable bowel syndrome) Lung nodule Other screening mammogram Pelvic floor dysfunction Proctalgia fugax Vulvodynia Family History Family History Mother Diabetes Pancreatic cancer Kidney problem Father Lung cancer Brother Peripheral vascular disease Brother CAD (coronary artery disease) Brother No problems noted. Sister Diabetes Sister Depression Maternal Grandmother Diabetes Hypertension Stroke Maternal Grandfather Lung disease Tuberculosis Other Colon cancer Ovarian cancer Stomach cancer Uterine cancer Surgical History Surgical History Hx of colonoscopy Hx of tonsillectomy Social History Social History (Reviewed 10/29/21 @ 20:20 by MAYNOR Brothers Alcohol intake: unknown Patient Tobacco Use Status: Former Tobacco user Quit Date: 06/27/2016 Tobacco use type: Cigarette Cigarette Packs Per Day: 0.30 Smoked in Last 30 Days: No Use of substances other than those prescribed or required for medical reasons: No Currently Displaying Signs/Symptoms of Drug Intoxication Withdrawal: No Advance Directives: No Do you have thoughts of harming others: None Do you have a plan to hurt others: No Plan Patient : No Meds Allergies Allergy/AdvReac Type Severity Reaction Status Date / Time cat dander Allergy Unknown Unknown Verified 10/29/21 15:00 ciprofloxacin Allergy Unknown gastritis Verified 10/29/21 15:00 gabapentin Allergy Unknown Anaphylaxis Verified 10/29/21 15:00 hornet venom [HORNETS] Allergy Unknown ANAPHYLACTI Verified 10/29/21 15:00 C latex Allergy Unknown Rash Verified 10/29/21 15:00 metronidazole Allergy Unknown GI distress Verified 10/29/21 15:00 pregabalin [From Lyrica] Allergy Unknown Angioedema Verified 10/29/21 15:00 sorbitol [SORBITOL] Allergy Unknown RASH Verified 10/29/21 15:00 sulfamethoxazole Allergy Unknown RASH Verified 10/29/21 15:00 [From BACTRIM] sulfasalazine Allergy Unknown Rash Verified 10/29/21 15:00 trimethoprim [From BACTRIM] Allergy Unknown RASH Verified 10/29/21 15:00 medrol dose pack Allergy Severe face Uncoded 10/16/21 15:50 swelling DUST Allergy Unknown SINUS Uncoded 10/16/21 15:50 INFECTION bandaids Allergy Unknown Uncoded 10/16/21 15:50 contrast Allergy rash on Uncoded 10/16/21 15:50 face betamethasone dipropriate AdvReac Severe rash Uncoded 10/16/21 15:50 Active Medications: Current Medications Acetaminophen (Acetaminophen 325 Mg Tablet) 650 mg PO Q6H PRN PRN Reason: Headache/Pain Mild Scale (1-3) Al Hydroxide/Mg Hydroxide (Magnesium Hydrox/Alum Hydrox 30 Ml Oral.Susp) 30 ml PO Q6H PRN PRN Reason: Heartburn/Nausea Albuterol Sulfate (Albuterol Sulfate 90 Mcg 8 Gm Inhaler) 2 puff INHALE Q4H PRN PRN Reason: Shortness Of Breath Or Wheezing Ezetimibe (Ezetimibe 10 Mg Tablet) 10 mg PO DAILY [facility] Last Admin: 04/01/22 09:30 Dose: Not Given Epinephrine (Epinephrine 1 Mg/Ml Vial) 0.3 mg IM ONCE PRN PRN Reason: ALLERGY Hydroxyzine HCl (Hydroxyzine Hcl 25 Mg Tablet) 25 mg PO Q6H PRN PRN Reason: Anxiety Loratadine (Loratadine 10 Mg Tablet) 10 mg PO DAILY [facility] Last Admin: 04/01/22 09:31 Dose: 10 mg Lorazepam (Lorazepam 0.5 Mg Tablet) 0.5 mg PO Q4H PRN PRN Reason: Anxiety Olanzapine (Olanzapine 5 Mg Tablet) 5 mg PO Q6H PRN PRN Reason: agitation Risperidone (Risperidone 1 Mg Tablet) 1 mg PO BID [facility] Last Admin: 04/01/22 09:32 Dose: Not Given Trazodone HCl (Trazodone Hcl 50 Mg Tablet) 50 mg PO BEDTIME PRN PRN Reason: Insomnia Home Medications Medication Instructions Recorded Confirmed Last Taken Type albuterol sulfate 90 mcg/actuation 2 puff inhalation Q4H PRN 03/29/22 03/29/22 Unknown History aerosol inhaler Shortness Of Breath Or Wheezing epinephrine 0.3 mg/0.3 mL 0.3 mg IM DIRECTED 03/29/22 03/30/22 Unknown History injection, auto-injector (EpiPen 2-Hebert) ezetimibe 10 mg tablet 1 tab PO DAILY 03/29/22 03/29/22 Unknown History loratadine 10 mg tablet 1 tab PO DAILY 03/29/22 03/29/22 Unknown History Physical Exam Vital Signs: Vital Signs: Last Vital Signs Temp 97.4 F 04/01/22 08:00 Pulse 87 04/01/22 08:00 Resp 16 04/01/22 08:00 BP 131/65 04/01/22 08:00 Pulse Ox 94 04/01/22 08:00 O2 Del Method 04/01/22 08:00 BMI result Body Mass Index 24.0 Neuro: Other: She is alert and awake with normal spontaneity of speech fluency comprehension and slightly vague affect. She is comprehending and following commands. Pupils are round reactive to light. Extraocular muscles are intact. Face is symmet rical. Speech is normal. [id number] testing is normal. Deep tendon reflexes are for her age on the brisker side with equivocal left and flexor right plantars. Gait is normal. There is no obvious tremor or bradykinesia. Results Labs 03/31/22 06:33 03/31/22 06:33 Labs: Noncontrast head CT did not reveal any significant abnormality. Previously done lumbar sacral spine MRI was unremarkable. 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 Other than that, she she had some indication of anxiety/paranoia type of disorder. Her previous history and evaluations done in [place] were not available at this time. She said that her vulvodynia pain has not occurred during last few days since she has been here. It was happening before. If that is true, it would suggest more of a psychological reason then physical. In terms of physical reasons, rarely patient could have posterior cervical cord type of pathology. She did have mild hyper reflexia. I would recommend a cervical spine MRI with and without contrast to rule that out. As far as her mental status is concerned, this could be a psychiatric disease in evolution. In terms of treatable causes are alternate causes, atypical encephalitis can come to picture from atypical infections or autoimmune or paraneoplastic reasons. I recommend an MRI of brain with and without contrast, some blood test and probably also a lumbar puncture but after MRI. As far as blood tests are concerned, DEMARCUS titer is pending, which can test for lupus, and Lyme test should be ordered. Probability of finding a cause like that though is low. If no conclusion is reached, after MRI, a lumbar puncture should be performed to send for CSF glucose, protein, cells, diff, meningoencephalitis panel, and paraneoplastic panel. Time Spent With Patient Time: Total time managing care of this patient today ____ minutes. Procedures Date of Service Date of Service: 04/01/22
--- NOTE | 2022-04-01 12:27 | P.PNPSI_ITS ---
Subjective Subjective Date of Service: 04/01/22 Reason For Visit: aggression Subjective Notes: Section 12B Interim History: Pt presents as much calmer, less agitated and paranoid. Pt reports she has no recollection as to events leading to this admission. She reports she does not remember smashing the TV, or when EMS came to her house or any kind of argument with her . She denies SI/HI. She also denies VH/AH. This comic writer explained recommendation of neurologist, Dr. Murray, including MRI, potential LP. Pt reports she would do it but outpatient. She shows some concern as to her changes in behavior and finding explanation but she is also still guarded about doing any of these testing here on the unit. Will discuss with her and coordinate OP specialists. Review of Systems Review of Systems No recent cold or flu-like illness. Yes all other systems are reviewed and are negative Mental Status Exam Mental Status Exam Narrative: Appearance: wearing hospital gown, in bed, covered with blanket, disheveled, in NAD Behavior: more cooperative, less suspicious Psychomotor: no agitation or retardation noted. Speech: clear, regular rate/rhythm/volume, spontaneous TP: more linear TC: less paranoia, but guarded about doing any testing here on the unit, wanting to go home Mood: better Affect: bright, non labile SI: denies HI: denies AV/VH: denies Delusions: no overt but some suspiciousness still present. Memory/cog: alert, oriented to place, month, year not situation, not sure how long she has been in the hospital Diagnostics Vital Signs (24Hr): Vital Signs - 24 hr 04/01/22 20:30 Temperature 96.6 F L Pulse Rate 78 Respiratory Rate 16 Pulse Oximetry 95 Oxygen Delivery Method Room Air BMI result Body Mass Index 24.0 Labs 03/31/22 06:33 03/31/22 06:33 Labs: Laboratory Results - last 48 hr 03/29/22 14:05 DEMARCUS Screen NEGATIVE DEMARCUS Titer TNP DEMARCUS Titer 2 TNP DEMARCUS Titer 3 TNP DEMARCUS Pattern TNP DEMARCUS Pattern 2 TNP DEMARCUS Pattern 3 TNP Imaging Radiology Impressions: ITS Impressions Head CT 03/29/22 09:03 IMPRESSION: No acute intracranial pathology. Medications Medications Current Medications Acetaminophen (Acetaminophen 325 Mg Tablet) 650 mg PO Q6H PRN PRN Reason: Headache/Pain Mild Scale (1-3) Al Hydroxide/Mg Hydroxide (Magnesium Hydrox/Alum Hydrox 30 Ml Oral.Susp) 30 ml PO Q6H PRN PRN Reason: Heartburn/Nausea Albuterol Sulfate (Albuterol Sulfate 90 Mcg 8 Gm Inhaler) 2 puff INHALE Q4H PRN PRN Reason: Shortness Of Breath Or Wheezing Ezetimibe (Ezetimibe 10 Mg Tablet) 10 mg PO DAILY [facility] Last Admin: 04/02/22 07:43 Dose: Not Given Epinephrine (Epinephrine 1 Mg/Ml Vial) 0.3 mg IM ONCE PRN PRN Reason: ALLERGY Hydroxyzine HCl (Hydroxyzine Hcl 25 Mg Tablet) 25 mg PO Q6H PRN PRN Reason: Anxiety Loratadine (Loratadine 10 Mg Tablet) 10 mg PO DAILY@1200 [facility] Lorazepam (Lorazepam 0.5 Mg Tablet) 0.5 mg PO Q4H PRN PRN Reason: Anxiety Olanzapine (Olanzapine 5 Mg Tablet) 5 mg PO Q6H PRN PRN Reason: agitation Risperidone (Risperidone 1 Mg Tablet) 1 mg PO BID [facility] Last Admin: 04/02/22 07:43 Dose: Not Given Trazodone HCl (Trazodone Hcl 50 Mg Tablet) 50 mg PO BEDTIME PRN PRN Reason: Insomnia Allergies Allergies Allergy/AdvReac Type Severity Reaction Status Date / Time cat dander Allergy Unknown Unknown Verified 10/29/21 15:00 ciprofloxacin Allergy Unknown gastritis Verified 10/29/21 15:00 gabapentin Allergy Unknown Anaphylaxis Verified 10/29/21 15:00 hornet venom [HORNETS] Allergy Unknown ANAPHYLACTI Verified 10/29/21 15:00 C latex Allergy Unknown Rash Verified 10/29/21 15:00 metronidazole Allergy Unknown GI distress Verified 10/29/21 15:00 pregabalin [From Lyrica] Allergy Unknown Angioedema Verified 10/29/21 15:00 sorbitol [SORBITOL] Allergy Unknown RASH Verified 10/29/21 15:00 sulfamethoxazole Allergy Unknown RASH Verified 10/29/21 15:00 [From BACTRIM] sulfasalazine Allergy Unknown Rash Verified 10/29/21 15:00 trimethoprim [From BACTRIM] Allergy Unknown RASH Verified 10/29/21 15:00 medrol dose pack Allergy Severe face Uncoded 10/16/21 15:50 swelling DUST Allergy Unknown SINUS Uncoded 10/16/21 15:50 INFECTION bandaids Allergy Unknown Uncoded 10/16/21 15:50 contrast Allergy rash on Uncoded 10/16/21 15:50 face betamethasone dipropriate AdvReac Severe rash Uncoded 10/16/21 15:50 Assessment & Plan Assessment & Plan (1) Encephalopathy: Status: Acute Code(s): G93.40 - Encephalopathy, unspecified Assessment and Plan: 66 years old woman who has chronically suffered from well with vulvodynia, probably with no obvious physical cause as 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 Other than that, she she had some indication of anxiety/paranoia type of disorder. Her previous history and evaluations done in [place] were not available at this time. She said that her vulvodynia pain has not occurred during last few days since she has been here. It was happening before. If that is true, it would suggest more of a psychological reason then physical. In terms of physical reasons, rarely patient could have posterior cervical cord type of pathology. She did have mild hyper reflexia. I would recommend a cer vical spine MRI with and without contrast to rule that out. As far as her mental status is concerned, this could be a psychiatric disease in evolution. In terms of treatable causes are alternate causes, atypical encephalitis can come to picture from atypical infections or autoimmune or paraneoplastic reasons. I recommend an MRI of brain with and without contrast, some blood test and probably also a lumbar puncture but after MRI. As far as blood tests are concerned, DEMARCUS titer is pending, which can test for lupus, and Lyme test should be ordered. Probability of finding a cause like that though is low. If no conclusion is reached, after MRI, a lumbar puncture should be performed to send for CSF glucose, protein, cells, diff, meningoencephalitis panel, and paraneoplastic panel. Plan coordinate with OP providers to complete neurological work up. At this point, pt declines to take any medications or complete some of the work up here on the unit. Patient educated on: diagnosis Reason for contiued inpatient stay Substantial Risk for: harm to self Time Spent With Patient Time: Total time managing care of this patient today _30___ minutes.
[2022-04-01 20:30] VITALS: PULSE 78; RESP 16; TEMP 35.9; O2SAT 95
[2022-04-02 07:35] VITALS: BP 131/68; PULSE 72; RESP 16; TEMP 36.3; O2SAT 94
--- NOTE | 2022-04-02 13:20 | HO.PSYCHPN ---
Subjective Subjective Date of Service: 04/02/22 Reason For Visit: aggression Subjective Notes: Section 12B Interim History: Pt calmer, but still very guarded. She met with her and agreed to do MRI. When this investment underwriter met with her, pt declined having MRI and told this investment underwriter we're going to tell him that I did it, and then I do it when I leave this place. When asked to elaborate as to why she is declining to do it, pt states I have my doctors. Pt declines taking risperidone. She has been visible on the unit, appears with some degree of confusion. No aggression towards self or others. Review of Systems Review of Systems No recent cold or flu-like illness. Yes all other systems are reviewed and are negative Mental Status Exam Mental Status Exam Narrative: Appearance: wearing hospital gown, in bed, covered with blanket, disheveled, in NAD Behavior: more cooperative, less suspicious Psychomotor: no agitation or retardation noted. Speech: clear, regular rate/rhythm/volume, spontaneous TP: more linear TC: less paranoia, but guarded about doing any testing here on the unit, wanting to go home Mood: better Affect: bright, non labile SI: denies HI: denies AV/VH: denies Delusions: no overt but some suspiciousness still present. Memory/cog: alert, oriented to place, month, year not situation, not sure how long she has been in the hospital Diagnostics Vital Signs (24Hr): Vital Signs - 24 hr 04/02/22 18:00 Temperature 98.1 F Pulse Rate 75 Respiratory Rate 16 Blood Pressure 125/63 Pulse Oximetry 93 Oxygen Delivery Method Room Air BMI result Body Mass Index 24.0 Labs 03/31/22 06:33 03/31/22 06:33 Labs: Laboratory Results - last 48 hr 03/29/22 03/29/22 14:05 14:05 DEMARCUS Screen NEGATIVE DEMARCUS Titer TNP DEMARCUS Titer 2 TNP DEMARCUS Titer 3 TNP DEMARCUS Pattern TNP DEMARCUS Pattern 2 TNP DEMARCUS Pattern 3 TNP TSH Receptor Ab <1.00 Imaging Radiology Impressions: ITS Impressions Head CT 03/29/22 09:03 IMPRESSION: No acute intracranial pathology. Medications Medications Current Medications Acetaminophen (Acetaminophen 325 Mg Tablet) 650 mg PO Q6H PRN PRN Reason: Headache/Pain Mild Scale (1-3) Al Hydroxide/Mg Hydroxide (Magnesium Hydrox/Alum Hydrox 30 Ml Oral.Susp) 30 ml PO Q6H PRN PRN Reason: Heartburn/Nausea Albuterol Sulfate (Albuterol Sulfate 90 Mcg 8 Gm Inhaler) 2 puff INHALE Q4H PRN PRN Reason: Shortness Of Breath Or Wheezing Ezetimibe (Ezetimibe 10 Mg Tablet) 10 mg PO DAILY [facility] Last Admin: 04/03/22 08:04 Dose: Not Given Epinephrine (Epinephrine 1 Mg/Ml Vial) 0.3 mg IM ONCE PRN PRN Reason: ALLERGY Hydroxyzine HCl (Hydroxyzine Hcl 25 Mg Tablet) 25 mg PO Q6H PRN PRN Reason: Anxiety Loratadine (Loratadine 10 Mg Tablet) 10 mg PO DAILY@1200 [facility] Last Admin: 04/02/22 13:44 Dose: 10 mg Lorazepam (Lorazepam 0.5 Mg Tablet) 0.5 mg PO Q4H PRN PRN Reason: Anxiety Olanzapine (Olanzapine 5 Mg Tablet) 5 mg PO Q6H PRN PRN Reason: agitation Risperidone (Risperidone 1 Mg Tablet) 1 mg PO BID [facility] Last Admin: 04/03/22 08:04 Dose: Not Given Trazodone HCl (Trazodone Hcl 50 Mg Tablet) 50 mg PO BEDTIME PRN PRN Reason: Insomnia Allergies Allergies Allergy/AdvReac Type Severity Reaction Status Date / Time cat dander Allergy Unknown Unknown Verified 10/29/21 15:00 ciprofloxacin Allergy Unknown gastritis Verified 10/29/21 15:00 gabapentin Allergy Unknown Anaphylaxis Verified 10/29/21 15:00 hornet venom [HORNETS] Allergy Unknown ANAPHYLACTI Verified 10/29/21 15:00 C latex Allergy Unknown Rash Verified 10/29/21 15:00 metronidazole Allergy Unknown GI distress Verified 10/29/21 15:00 pregabalin [From Lyrica] Allergy Unknown Angioedema Verified 10/29/21 15:00 sorbitol [SORBITOL] Allergy Unknown RASH Verified 10/29/21 15:00 sulfamethoxazole Allergy Unknown RASH Verified 10/29/21 15:00 [From BACTRIM] sulfasalazine Allergy Unknown Rash Verified 10/29/21 15:00 trimethoprim [From BACTRIM] Allergy Unknown RASH Verified 10/29/21 15:00 medrol dose pack Allergy Severe face Uncoded 10/16/21 15:50 swelling DUST Allergy Unknown SINUS Uncoded 10/16/21 15:50 INFECTION bandaids Allergy Unknown Uncoded 10/16/21 15:50 contrast Allergy rash on Uncoded 10/16/21 15:50 face betamethasone dipropriate AdvReac Severe rash Uncoded 10/16/21 15:50 Assessment & Plan Assessment & Plan (1) Encephalopathy: Status: Acute Code(s): G93.40 - Encephalopathy, unspecified Assessment and Plan: 66 years old woman who has chronically suffered from well with vulvodynia, probably with no obvious physical cause as 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 Other than that, she she had some indication of anxiety/paranoia type of disorder. Her previous history and evaluations done in [place] were not available at this time. She said that her vulvodynia pain has not occurred during last few days since she has been here. It was happening before. If that is true, it would suggest more of a psychological reason then physical. In terms of physical reasons, rarely patient could have posterior cervical cord type of pathology. She did have mild hyper reflexia. I would recommend a cervical spine MRI with and without contrast to rule that out. As far as her mental status is concerned, this could be a psychiatric disease in evolution. In terms of treatable causes are alternate causes, atypical encephalitis can come to picture from atypical infections or autoimmune or paraneoplastic reasons. I recommend an MRI of brain with and without contrast, some blood test and probably also a lumbar puncture but after MRI. As far as blood tests are concerned, DEMARCUS titer is pending, which can test for lupus, and Lyme test should be ordered. Probability of finding a cause like that though is low. If no conclusion is reached, after MRI, a lumbar puncture should be performed to send for CSF glucose, protein, cells, diff, meningoencephalitis panel, and paraneoplastic panel. Plan coordinate with OP providers to complete neurological work up. At this point, pt declines to take any medications or complete some of the work up here on the unit. 04/02 continue tx. pt continues to decline MRI or further medical work up. Pt schedule to discharge tomorrow. Reason for contiued inpatient stay Substantial Risk for: inability to function Time Spent With Patient Time: Total time managing care of this patient today ____ minutes.
[2022-04-02] MEDS: Loratadine 10 MG TABLET PO (13:44)
[2022-04-02 16:34] LABS: Thyrotropin Receptor Antibody <1.00 IU/L (<=2.00)
[2022-04-02 18:00] VITALS: BP 125/63; PULSE 75; RESP 16; TEMP 36.7; O2SAT 93
--- NOTE | 2022-04-03 12:49 | P.DS_ITS ---
DS: Providers Provider Date of Service: 04/03/22 Date of admission: 03/30/22 11:01 Primary care physician: Sandra Cruz MD Consults: 03/29/22 15:21 Consult to Neurology Routine Consulting Provider: [facility] Reason for consultation: subacute paranoia, confusion Has provider been notified: Yes DS: Diagnosis Discharge Diagnosis (1) Encephalopathy: Status: Acute DS: Medications Discharge Medications Home Medications: Home Medications Medication Instructions Recorded Confirmed epinephrine 0.3 mg/0.3 mL 0.3 mg IM DIRECTED 03/29/22 03/30/22 injection, auto-injector (EpiPen 2-Hebert) ezetimibe 10 mg tablet 1 tab PO DAILY 03/29/22 03/29/22 Previous Rx's Medication Instructions Recorded albuterol sulfate 90 mcg/actuation 2 puff inhalation Q4H PRN 04/03/22 aerosol inhaler (Ventolin HFA) Shortness Of Breath Or Wheezing #6.7 grams loratadine 10 mg tablet 10 mg PO DAILY@1200 #30 tabs 04/03/22 Mental Status Exam Mental Status Exam Narrative: Appearance: wearing hospital gown, in bed, covered with blanket, disheveled, in NAD Behavior: more cooperative, less suspicious Psychomotor: no agitation or retardation noted. Speech: clear, regular rate/rhythm/volume, spontaneous TP: more linear TC: less paranoia, but guarded about doing any testing here on the unit, wanting to go home Mood: better Affect: guarded, suspicious SI: denies HI: denies AV/VH: denies Delusions: no overt but some suspiciousness still present. Memory/cog: alert, oriented to place, month, year not situation, pt not sure how long she has been in the hospital Data Data Completed and Pending Completed studies during hospitalization [Text1]: 03/29/22 03/29/22 03/29/22 07:37 07:37 07:43 WBC 5.9 RBC 4.71 Hgb 13.7 Hct 42.3 MCV 89.8 MCH 29.1 MCHC 32.4 RDW 14.0 Plt Count 284 MPV 10.6 Immature Gran % (Auto) 0.5 H Neut % (Auto) 54.0 Lymph % (Auto) 26.7 Hood % (Auto) 8.1 Eos % (Auto) 9.7 H Baso % (Auto) 1.0 Lymph # (Auto) 1.6 Hood # (Auto) 0.5 Eos # (Auto) 0.6 H Baso # (Auto) 0.1 Abs Immat Gran (auto) 0.03 Absolute Neuts (auto) 3.2 Absolute Nucleated RBC 0.000 Nucleated RBC % (auto) 0.0 Sodium Potassium Chloride Carbon Dioxide Anion Gap BUN Creatinine Estim Creat Clear Calc Estimated GFR Random Glucose Fasting Glucose Estimat Average Glucose Hemoglobin A1c % Calcium Total Bilirubin Direct Bilirubin AST ALT Alkaline Phosphatase C-Reactive Protein Total Protein Albumin Triglycerides Cholesterol LDL Cholesterol, Calc HDL Cholesterol Lipase Vitamin B12 Folate TSH Free T4 Urine Color Urine Appearance Urine pH Ur Specific [place] Urine Protein Urine Glucose (UA) Urine Ketones Urine Blood Urine Nitrite Ur Leukocyte Esterase Urine RBC Urine WBC Ur Squamous Epith Cells Urine Bacteria Hyaline Casts Urine Opiates Screen Urine Fentanyl Screen Ur Barbiturates Screen Ur Phencyclidine Scrn Ur Amphetamines Screen U Benzodiazepines Scrn Urine Cocaine Screen U Marijuana (THC) Screen Ethyl Alcohol DEMARCUS Screen DEMARCUS Titer DEMARCUS Titer 2 DEMARCUS Titer 3 DEMARCUS Pattern DEMARCUS Pattern 2 DEMARCUS Pattern 3 TSH Receptor Ab T.pallidum Ab (EIA) Nonreactive Influenza Type A (PCR) NEGATIVE Influenza Type B (PCR) NEGATIVE RSV RNA Qual (PCR) NEGATIVE SARS-CoV-2 RNA (RT-PCR) NEGATIVE 03/29/22 03/29/22 03/29/22 07:43 08:41 08:41 WBC RBC Hgb Hct MCV MCH MCHC RDW Plt Count MPV Immature Gran % (Auto) Neut % (Auto) Lymph % (Auto) Hood % (Auto) Eos % (Auto) Baso % (Auto) Lymph # (Auto) Hood # (Auto) Eos # (Auto) Baso # (Auto) Abs Immat Gran (auto) Absolute Neuts (auto) Absolute Nucleated RBC Nucleated RBC % (auto) Sodium 144 Potassium 4.6 Chloride 107 Carbon Dioxide 28 Anion Gap 14 BUN 17 H Creatinine 0.77 Estim Creat Clear Calc 63.7 Estimated GFR > 60 Random Glucose 98 Fasting Glucose Estimat Average Glucose Hemoglobin A1c % Calcium 9.6 Total Bilirubin 0.2 Direct Bilirubin < 0.2 AST 17 ALT 14 Alkaline Phosphatase 76 C-Reactive Protein < 0.10 Total Protein 6.9 Albumin 4.3 Triglycerides Cholesterol LDL Cholesterol, Calc HDL Cholesterol Lipase 45 Vitamin B12 Folate TSH 5.16 H Free T4 1.10 Urine Color Yellow Urine Appearance Clear Urine pH 7.5 Ur Specific [place] <= 1.005 Urine Protein Negative Urine Glucose (UA) Negative Urine Ketones Negative Urine Blood Negative Urine Nitrite Negative Ur Leukocyte Esterase Trace H Urine RBC 0-2 Urine WBC 0-5 Ur Squamous Epith Cells 0-2 Urine Bacteria None Seen Hyaline Casts 0-2 Urine Opiates Screen Not Detected Urine Fentanyl Screen Not Detected Ur Barbiturates Screen Not Detected Ur Phencyclidine Scrn Not Detected Ur Amphetamines Screen Not Detected U Benzodiazepines Scrn POSITIVE H Urine Cocaine Screen Not Detected U Marijuana (THC) Screen Not Detected Ethyl Alcohol < 10 DEMARCUS Screen DEMARCUS Titer DEMARCUS Titer 2 DEMARCUS Titer 3 DEMARCUS Pattern DEMARCUS Pattern 2 DEMARCUS Pattern 3 TSH Receptor Ab T.pallidum Ab (EIA) Influenza Type A (PCR) Influenza Type B (PCR) RSV RNA Qual (PCR) SARS-CoV-2 RNA (RT-PCR) 03/29/22 03/29/22 03/31/22 14:05 14:05 06:33 WBC 7.3 RBC 4.89 Hgb 14.3 Hct 42.2 MCV 86.3 MCH 29.2 MCHC 33.9 RDW 13.9 Plt Count 297 MPV 10.3 Immature Gran % (Auto) 0.3 Neut % (Auto) 58.5 Lymph % (Auto) 28.7 Hood % (Auto) 8.1 Eos % (Auto) 3.6 Baso % (Auto) 0.8 Lymph # (Auto) 2.1 Hood # (Auto) 0.6 Eos # (Auto) 0.3 Baso # (Auto) 0.1 Abs Immat Gran (auto) 0.02 Absolute Neuts (auto) 4.2 Absolute Nucleated RBC 0.000 Nucleated RBC % (auto) 0.0 Sodium Potassium Chloride Carbon Dioxide Anion Gap BUN Creatinine Estim Creat Clear Calc Estimated GFR Random Glucose Fasting Glucose Estimat Average Glucose Hemoglobin A1c % Calcium Total Bilirubin Direct Bilirubin AST ALT Alkaline Phosphatase C-Reactive Protein Total Protein Albumin Triglycerides Cholesterol LDL Cholesterol, Calc HDL Cholesterol Lipase Vitamin B12 Folate TSH Free T4 Urine Color Urine Appearance Urine pH Ur Specific [place] Urine Protein Urine Glucose (UA) Urine Ketones Urine Blood Urine Nitrite Ur Leukocyte Esterase Urine RBC Urine WBC Ur Squamous Epith Cells Urine Bacteria Hyaline Casts Urine Opiates Screen Urine Fentanyl Screen Ur Barbiturates Screen Ur Phencyclidine Scrn Ur Amphetamines Screen U Benzodiazepines Scrn Urine Cocaine Screen U Marijuana (THC) Screen Ethyl Alcohol DEMARCUS Screen NEGATIVE DEMARCUS Titer TNP DEMARCUS Titer 2 TNP DEMARCUS Titer 3 TNP DEMARCUS Pattern TNP DEMARCUS Pattern 2 TNP DEMARCUS Pattern 3 TNP TSH Receptor Ab <1.00 T.pallidum Ab (EIA) Influenza Type A (PCR) Influenza Type B (PCR) RSV RNA Qual (PCR) SARS-CoV-2 RNA (RT-PCR) 03/31/22 03/31/22 03/31/22 06:33 06:33 06:33 WBC RBC Hgb Hct MCV MCH MCHC RDW Plt Count MPV Immature Gran % (Auto) Neut % (Auto) Lymph % (Auto) Hood % (Auto) Eos % (Auto) Baso % (Auto) Lymph # (Auto) Hood # (Auto) Eos # (Auto) Baso # (Auto) Abs Immat Gran (auto) Absolute Neuts (auto) Absolute Nucleated RBC Nucleated RBC % (auto) Sodium 142 Potassium 3.9 Chloride 106 Carbon Dioxide 25 Anion Gap 15 BUN 18 H Creatinine 0.80 Estim Creat Clear Calc 61.3 Estimated GFR > 60 Random Glucose Fasting Glucose 116 H Estimat Average Glucose 117 Hemoglobin A1c % 5.7 Calcium 9.7 Total Bilirubin 0.7 Direct Bilirubin 0.2 AST 27 ALT 16 Alkaline Phosphatase 76 C-Reactive Protein Total Protein 7.1 Albumin 4.5 Triglycerides 78 Cholesterol 261 LDL Cholesterol, Calc 179 HDL Cholesterol 67 Lipase Vitamin B12 290 Folate 12.7 TSH 1.88 Free T4 Urine Color Urine Appearance Urine pH Ur Specific [place] Urine Protein Urine Glucose (UA) Urine Ketones Urine Blood Urine Nitrite Ur Leukocyte Esterase Urine RBC Urine WBC Ur Squamous Epith Cells Urine Bacteria Hyaline Casts Urine Opiates Screen Urine Fentanyl Screen Ur Barbiturates Screen Ur Phencyclidine Scrn Ur Amphetamines Screen U Benzodiazepines Scrn Urine Cocaine Screen U Marijuana (THC) Screen Ethyl Alcohol DEMARCUS Screen DEMARCUS Titer DEMARCUS Titer 2 DEMARCUS Titer 3 DEMARCUS Pattern DEMARCUS Pattern 2 DEMARCUS Pattern 3 TSH Receptor Ab T.pallidum Ab (EIA) Influenza Type A (PCR) Influenza Type B (PCR) RSV RNA Qual (PCR) SARS-CoV-2 RNA (RT-PCR) Imaging Diagnostic Imaging Impressions Head CT 03/29/22 09:03 IMPRESSION: No acute intracranial pathology. 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 A number of days ago Kaycee had a fall and banged the left side of her head and was ordered an MRI which was supposed to be done on 03/29/2022 however she did not want to do it and the day before she became angry and agitated over this and started to shout, throwing things against the wall, broke a flat screen TV and through 2 speakers to the wall etc..? The police were called and she was brought to the emergency room were she was physically and chemically restrained.? According to her she has been showing signs of irritability, paranoia, suspiciousness.? He also stated that she would have episodes and periods of talking about the issues that she was paranoid and suspicious about and then would have periods of clarity and no agitation.? Talking about someone may be trying to poison her, something pertaining to which is etc..? When I confronted her with these she essentially said that she has had bad experiences with medications in the past and is very suspicious of the affect of medicine on her ex cetera.? She has had allergic reactions to gabapentin and Lyrica.? No suicidal or homicidal ideations.? She has not been sleeping too well and has been sleeping with the lights on for some time.? She has been able to do her work around the house with cooking and cleaning.? No prior major psychiatric treatments other than when 1 of her brothers in 2019 she had sought some outpatient counseling and also when her father some years earlier. Past Psychiatric History: Brief outpatient therapy and use of Zoloft around the time she started her menopause she was given Zoloft that she took very briefly and stopped because it made her very flat emotionally Medical Evaluation Reviewed: Hospitalist Jyotsna Pending HOSPITAL COURSE On the unit, pt was admitted on a Sect 12b. Pt presented slightly calmer after IM medications she received in ED due to combative and agitated behaviors. After discussing risks, benefits and alternative treatment options, pt declined starting antipsychotic. Pt was seen by neurology who recommended MRI, LP, meningitis panel, paraneoplastic panel. However, pt refused and base of refusal seems to be that pt continued to present as paranoid and suspicious. Collateral information gathered from her who reports pt appears calmer, but still paranoid and not her usual self. Discussed with that pt does not have capacity to make medical decisions at this point, which include the fact that she has no insight into recent changes in mentation and behaviors. It is unclear what is causing such symptoms but they can't be deemed as psychiatry without completing neurological work up given that she does not have prior psych hx and this is not the typical tr ajectory, age of onset of such symptoms. Recommended pt's to bring back pt is more agitated or combative for further medical work up. Status at Discharge Cognitive/behavioral status at discharge: Pt suspicious, guarded, less agitated and combative but still with no insight into recent changes in behavior and mentation. No SI/HI. No overt signs of aggression towards self or others. Functional status at discharge: independent ambulation Overall status at discharge: patient is not back to baseline Time Spent with Patient Time attestation: Total time managing care of this patient today ____ minutes. Time spent: Greater than 30 minutes Discharge Plan Discharge Anticipated Discharge Date/Time: 04/03/22 12:27 Patient Disposition: Home, Self-Care Discharge Diagnosis: psychosis. Referrals: Mihir Salazar MD [Physician] - 04/29/22 11:20 am (Your neurology appointment is scheduled with Dr Salazar for 04/29/22 at 11:20am.) Sandra Cruz MD [Primary Care Provider] - 1 Week (Your PCP's office will contact you with follow up appointment date.) Discharge Medications: New loratadine 10 mg Tablet 10 mg PO DAILY@1200 Qty: 30 0RF albuterol sulfate [Ventolin HFA] 90 mcg/actuation Hfa Aerosol Inhaler 2 puff inhalation Q4H PRN (Reason: Shortness Of Breath Or Wheezing) Qty: 6.7 0RF Continued epinephrine [EpiPen 2-Hebert] 0.3 mg/0.3 mL auto-injector 0.3 mg IM DIRECTED ezetimibe 10 mg tablet 1 tab PO DAILY Discontinued albuterol sulfate 90 mcg/actuation HFA aerosol inhaler 2 puff inhalation Q4H PRN (Reason: Shortness Of Breath Or Wheezing) loratadine 10 mg tablet 1 tab PO DAILY Discharge Orders: Discharge Order (Routine); Ordered 04/03/22 Ordered By: Hayley Garcia Diet: Regular diet Activity on Discharge: As tolerated Stand Alone Forms: Patient Portal Discharge page Care Plan Goals: 1. Maintain mood 2. continues to present with paranoid, less irritable and less agitated. Health Concerns: Follow up with PCP, neurology Plan of Treatment: 1. Take medications as prescribed 2. Follow with referral for specialist. 3. Go to nearest ED or call 911 in event of emergency. Assessment: Pt presents as paranoid and suspicious but less so than when admitted. Cause in changes in behavior and new onset paranoid are unclear at this point and pt had declined further medical work up including MRI. Pt seen by neurology who recommended starting with MRI, to considering LP, paraneoplastic panel. Discharge Date/Time: 04/03/22 13:23
--- NOTE | 2022-04-03 13:24 | PC.NURSE ---
Patient alert and oriented x4. Verbalized understanding of and readiness to discharge. All d/c instructions and medications reviewed with patient and . Follow up appointments made with neuro and PCP. All belongings accounted for. Patient dressed appropriately in street clothes. Escorted to front of hospital by staff.
== END 2022-04-03 13:23 | disposition home or self-care (01) | DRG 885 ==
LOC: HO.ED 13:01 → HO.PGERI 03-30 11:16
PROVIDERS: Physician Assistant; Social Worker; Admitting Provider Psychiatry & Neurology Psychiatry; Emergency Provider Emergency Medicine; PCP Internal Medicine; Visit Provider Psychiatry & Neurology Psychiatry
DX: F29 Unspecified psychosis not due to a substance or known physiological condition (principal); G93.40 Encephalopathy, unspecified; Z20.822 Contact with and (suspected) exposure to COVID-19; Z88.2 Allergy status to sulfonamides; Z87.891 Personal history of nicotine dependence; Z91.040 Latex allergy status; Z91.041 Radiographic dye allergy status; Z88.8 Allergy status to other drugs, medicaments and biological substances; Z79.899 Other long term (current) drug therapy
CPT/HCPCS: 0241U; 36415; 70450; 80053; 80061; 80076; 80307; 81001; 82077; 82248; 82607; 82746; 83036; 83520; 83690; 84439; 84443; 85025; 86038; 86039; 86140; 86780; 93005; 96372; 99285; J2060; S9485

== ENCOUNTER 2022-04-23 09:52 | Outpatient (REF) | payer MEDICARE, BC, SELFPAY ==
--- NOTE | ~2022-04-23 | MR_ITS ---
EXAMINATION: MR BRAIN WITHOUT CONTRAST CLINICAL INFORMATION: 67-year-old male evaluated for stroke. Self-reported headaches. Self-reported history of remote concussion 30 years prior. COMPARISON: None. TECHNIQUE: Routine multiplanar, multisequence MR imaging of the brain was performed without IV contrast. FINDINGS: Brain Volume: Within normal limits within the limitations of qualitative assessment. Structural: Partially empty sella, normal variant. Brain and Meninges: DWI sequence demonstrates no restricted diffusion to suggest acute or subacute cerebral ischemia. A few patchy zones of FLAIR/T2 signal hyperintensity seen within the peritrigonal white matter bilaterally which are nonspecific findings but likely reflect zones of chronic ischemic microangiopathy. Remainder of the brain is normal in signal intensity. Gradient refocused imaging demonstrates no abnormal susceptibility-weighted signal loss to suggest hemorrhage, hemosiderin staining or abnormal mineralization. No extra-axial fluid collections, space-occupying process or mass effect are identified. Ventricles and Subarachnoid Spaces: The ventricular system and subarachnoid spaces are within normal range; there is no hydrocephalus. Orbital Structures: The visualized orbital structures are grossly unremarkable within the limitations of the study. Vascular: There is a 3.5 mm focus of prominent signal void at the left MCA bifurcation which raises the possibility for either a small saccular aneurysm or tortuosity of the vessel. Otherwise, normal signal voids are seen in the visualized major intracranial vessels. Osseous Structures, Sinuses/Mastoids, Extracranial Soft Tissues: Unremarkable MR/MR head/brain wo con IMPRESSION: 1. 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 No evidence for acute or subacute cerebral ischemia, hemorrhage, extra-axial fluid collection, space-occupying process, mass effect or hydrocephalus. 2. Possible 3.5 mm saccular aneurysm versus tortuosity of a vessel at the left MCA bifurcation. Recommend follow-up MRA of the head to further assess.
== END 2022-04-23 09:53 | disposition home or self-care (01) ==
LOC: HO.MRI 09:52
PROVIDERS: Visit Provider Psychiatry & Neurology Neurology
DX: I63.9 Cerebral infarction, unspecified (principal)
CPT/HCPCS: 70551

== ENCOUNTER → 2022-08-29 10:13 | Outpatient (BNVA) | payer MEDICARE, SELFPAY | PROVIDERS: PCP Internal Medicine; Visit Provider Nurse Practitioner Family | DX: M62.830 Muscle spasm of back (principal); M54.16 Radiculopathy, lumbar region; M53.3 Sacrococcygeal disorders, not elsewhere classified; M47.816 Spondylosis without myelopathy or radiculopathy, lumbar region; M25.552 Pain in left hip; N94.819 Vulvodynia, unspecified; E66.9 Obesity, unspecified; G89.29 Other chronic pain; Z68.37 Body mass index [BMI] 37.0-37.9, adult | CPT/HCPCS: 99212 ==

== ENCOUNTER 2022-09-12 11:26 | Emergency (ER) | payer MEDICARE, SELFPAY ==
[2022-09-12 11:34] VITALS: BP 149/57; PULSE 90; RESP 18; TEMP 36; O2SAT 95; BMI 35.8
--- NOTE | 2022-09-12 11:34 | ED.GENADULT ---
HPI - General Adult General Chief complaint: Extremity Injury, Lower Stated complaint: edema in legs Time Seen by Provider: 09/12/22 13:44 Source: patient and family (patient's ) Mode of arrival: ambulatory Limitations: no limitations History of Present Illness HPI narrative: Patient is a 67 year old assigned female at with a history of lumbar spine pain presenting to the emergency department today with lower leg edema x1 month. Patient states that she has an appointment with her PCP tomorrow and today, her PCPs nurse called to discuss why she is visiting tomorrow. She informed them of her weight gain and swelling in the legs and they recommended she come to the ER to be evaluated for heart failure. Patient denies any dizziness, lightheadedness, abdominal pain, nausea, vomiting, fever, chills, blurry vision, double vision, loss of vision, chest pain, difficulty breathing, shortness of breath, back pain, night sweats, pain with urination, increased urinary frequency, increased urinary urgency, blood in her urine or stool, syncope or a near syncopal episode, recent trauma or falls, bowel incontinence, bladder incontinence, bowel retention, bladder retention, or any other complaints at this time. Onset (ago): month(s) Location: left, right and lower extremity Radiation: non-radiation Severity: mild Severity scale (1-10): 3 Relieving factors: none Exacerbating factors: none Associated symptoms: denies other symptoms Treatments prior to arrival: none Related Data Home Medications Medication Instructions Recorded Confirmed epinephrine 0.3 mg/0.3 mL 0.3 mg IM DIRECTED 03/29/22 03/30/22 injection, auto-injector (EpiPen 2-Hebert) ezetimibe 10 mg tablet 1 tab PO DAILY 03/29/22 03/29/22 Previous Rx's Medication Instructions Recorded albuterol sulfate 90 mcg/actuation 2 puff inhalation Q4H PRN 04/03/22 aerosol inhaler (Ventolin HFA) Shortness Of Breath Or Wheezing #6.7 grams loratadine 10 mg tablet 10 mg PO DAILY@1200 #30 tabs 04/03/22 diclofenac sodium 1 % topical gel 4 g topical QID pain #100 grams 08/29/22 (Arthritis Pain (diclofenac)) lidocaine 5 % topical patch 1 patch topical DAILY pain 30 days 08/29/22 #30 ea methocarbamol 500 mg tablet 500 mg PO BID PRN muscle spasm 30 08/29/22 days #60 tabs Allergies Allergy/AdvReac Type Severity Reaction Status Date / Time cat dander Allergy Unknown Unknown Verified 09/12/22 11:40 ciprofloxacin Allergy Unknown gastritis Verified 09/12/22 11:40 gabapentin Allergy Unknown Anaphylaxis Verified 09/12/22 11:40 hornet venom [HORNETS] Allergy Unknown ANAPHYLACTI Verified 09/12/22 11:40 C latex Allergy Unknown Rash Verified 09/12/22 11:40 metronidazole Allergy Unknown GI distress Verified 09/12/22 11:40 pregabalin [From Lyrica] Allergy Unknown Angioedema Verified 09/12/22 11:40 sorbitol [SORBITOL] Allergy Unknown RASH Verified 09/12/22 11:40 sulfamethoxazole Allergy Unknown RASH Verified 09/12/22 11:40 [From BACTRIM] sulfasalazine Allergy Unknown Rash Verified 09/12/22 11:40 trimethoprim [From BACTRIM] Allergy Unknown RASH Verified 09/12/22 11:40 medrol dose pack Allergy Severe face Uncoded 10/16/21 15:50 swelling DUST Allergy Unknown SINUS Uncoded 10/16/21 15:50 INFECTION bandaids Allergy Unknown Uncoded 10/16/21 15:50 contrast Allergy rash on Uncoded 10/16/21 15:50 face betamethasone dipropriate AdvReac Severe rash Uncoded 10/16/21 15:50 Review of Systems Constitutional: Constitutional: Reports no additional constitutional complaints, Denies chills, Denies fever(s) and Denies night sweats Eyes: Eyes: Reports no additional eye complaints, Denies blurry vision, Denies change in vision, Denies diplopia, Denies eye discharge, Denies loss of vision and Denies eye pain ENT: Denies dizziness Cardiovascular: Cardiovascular: Reports no additional cardiovascular complaints, Denies chest pain, Reports leg edema, Denies lightheadedness, Denies Loss of Consciousness and Denies dyspnea Respiratory: Respiratory: Reports no additional respiratory complaints and Denies dyspnea Gastrointestinal: Gastrointestinal: Reports no additional gastrointestinal complaints, Denies abdominal pain, Denies melena, Denies hematochezia, Denies change in bowel habits and Denies change in stool character Genitourinary: Genitourinary: Denies hematuria, Denies urinary frequency, Denies dysuria, Denies urinary incontinence, Denies urinary hesitancy and Denies urinary urgency Musculoskeletal: Musculoskeletal: Reports no additional musculoskeletal complaints, Denies numbness and Denies tingling Neurologic: Denies dizziness, Denies loss of vision, Denies numbness and Denies tingling Psychiatric: Psychiatric: Reports no additional psychiatric complaints Endocrine: Endocrine: Reports no additional endocrine complaints Hematologic/Lymphatic: Hematologic/Lymphatic: Reports no additional hematologic/lymphatic complaints Allergic/Immunologic: Allergic/Immunologic: Reports no additional allergic/immunologic complaints [facility] Past Medical History Attestation statement: The following information was validated with the patient. Source: old records reviewed and nursing notes reviewed Medical History Acute allergic rhinitis Adjustment disorder with mixed anxiety and depressed mood Anal sphincter incompetence Chronic bilateral low back pain without sciatica Depression Gallstones GERD (gastroesophageal reflux disease) Hypercholesterolemia IBS (irritable bowel syndrome) Lung nodule Other screening mammogram Pelvic floor dysfunction Proctalgia fugax Vulvodynia Surgical History Hx of colonoscopy Hx of tonsillectomy Family History Family History Mother Diabetes Pancreatic cancer Kidney problem Father Lung cancer Brother Peripheral vascular disease Brother CAD (coronary artery disease) Brother No problems noted. Sister Diabetes Sister Depression Maternal Grandmother Diabetes Hypertension Stroke Maternal Grandfather Lung disease Tuberculosis Other Colon cancer Ovarian cancer Stomach cancer Uterine cancer Social History Social History Household Members: Spouse Housing: House Do you presently have visiting nurse or other home services: No Alcohol intake: current Alcohol intake frequency: a few times a week Alcohol type: wine Patient Tobacco Use Status: Former Tobacco user Quit Date: 2016 Tobacco use type: Cigarette Cigarette Packs Per Day: 1 Cigarettes Per Day: 20.0 Years Smoked: 40 Smoked in Last 30 Days: No e-Cigarette/Vaping Use: Former Use Use of substances other than those prescribed or required for medical reasons: No Advance Directives: Yes Advance Directives on File: Yes Advance Directives Date on File: 10/10/21 service: No Sexual orientation: Straight/Heterosexual Physical Exam ED Vital Signs: Vital Signs - 24 hr 09/12/22 11:34 09/12/22 13:24 Temperature 96.8 F Pulse Rate 90 68 Respiratory Rate 18 16 Blood Pressure 149/57 H 134/54 L Pulse Oximetry 95 95 Oxygen Delivery Method Room Air Room Air BMI result Body Mass Index 35.8 Const General: cooperative, no acute distress, alert and awake Nutritional Appearance: overweight Orientation/consciousness: patient oriented x3 Limitations: no limitations HENMT Head: Yes normal to inspection and Yes atraumatic Ears: hearing grossly normal bilaterally and external ears normal General nose exam: Normal external nose present, no nasal discharge noted and no epistaxis Face and sinus: Yes normal facial exam, No abrasion and No laceration Mouth: Normal oral and palatal mucosa present, no drooling and no muffled voice Eyes General: appearance normal, both eyes and all related structures Periorbital: periorbital findings normal Eyelids: Yes eyelids normal Conjunctivae: conjunctivae normal Pupils: Equal, round and reactive pupils present EOM: EOMs intact bilaterally Neck Neck: Yes normal visual inspection, Yes full ROM and Yes no lymphadenopathy Chest Chest palpation & inspection: normal inspection of the chest Resp Effort & Inspection: normal respiratory effort and able to speak in complete sentences Cardio Peripheral pulses: Peripheral pulses 2+ throughout GI Inspection: Yes normal to inspection Neuro General: patient oriented x3 and moves all extremities Cranial nerves: Yes Equal, round and reactive pupils present Cognition (Neuro): normal cognition Motor exam (neuro): 5/5 motor strength present throughout Sensory Exam: Normal double simultaneous stimulation for sensation Coordination: [id number] test normal Extrem Other: minimal lower leg edema bilaterally General: Yes full ROM and Yes capillary refill normal Psych Appearance: grossly normal Mental Status: mental status grossly normal Affect: normal affect Attitude: cooperative Thought process: Normal thought process present Thought content: Normal thought content present Insight: Good insight present (Psych) Course Course Course Narrative: This is an RME: Additional HPI, ROS, PE not included below will be deferred to primary provider. This is a [id number]-female, with a past medical history of depression, gallstone, GERD, hypercholesterolemia, IBS, and lung nodule, presenting to the emergency department with complaints of lower extremity swelling x 1 month. Reports she has had 30lb weight gain in 1 month. Has had episodes of chest pain and rapid heart rate during the night over the course of this past month. Also admits to having some wheezing periodically but attributes this to allergies. Vital signs stable. Patient speaking in full sentences, appears to be in no acute distress. Stable to return back to the waiting room until seen by provider in the main emergency department. Plan: Labs, EKG, chest x-ray Medical Decision Making Medical Decision Making [facility] Narrative: Patient is a 67 year old assigned female at with a history of low back pain presenting to the emergency department today with lower leg swelling. Patient's physical exam showed very minimal lower leg edema. Patient's blood work showed a stable troponin with the initial being 18 and the repeat staying at 18, patient's BNP was 18. Patient's labs were overall grossly normal. Patient's EKG was unremarkable. Patient's chest x-ray showed no acute process. I explained my physical exam findings as well as all test results to the patient and the patient's . I answered all questions asked by the patient and the patient's . I stressed the importance of the patient taking her medication as prescribed. I stressed the importance of the patient following up with her primary care provider. I stressed the importance of the patient returning to the emergency department immediately if her symptoms were to worsen or if she were to develop any dizziness, shortness of breath, difficulty breathing, chest pain, blurry vision, loss of vision, nausea, vomiting, abdominal pain, fever, chills, back pain, or any other complaints. Patient and the patient's verbalized agreement and understanding with this treatment plan and discharge. Differential Diagnosis Differential Diagnoses: The differential diagnosis associated with the presentation includes STEMI NSTEMI CHF exacerbation CHF Fluid overload Lower leg edema Dependent edema Admission/Observation Consideration of admission/observation: Escalation of care including admission/observation considered Patient would have been admitted to the hospital had her work up had any findings where hospital admission was appropriate and her clinical presentation warranted hospital admission. Lab Data [facility] Lab Attestation statement: I reviewed the patient's lab results. My interpretation of these studies and their corresponding values is that they are grossly normal. 09/12/22 12:00 09/12/22 12:00 Labs: Lab Results 09/12/22 09/12/22 09/12/22 Range/Units 12:00 12:00 12:00 WBC 7.9 (4.8-10.8) X10*3/uL RBC 5.13 (4.20-5.50) X10*6/uL Hgb 14.4 (12.0-16.0) g/dl Hct 44.1 (37.0-47.0) % MCV 86.0 (80.0-98.0) fL MCH 28.1 (27.0-33.0) pg MCHC 32.7 (31.0-35.0) g/dl RDW 14.9 (11.0-16.0) % Plt Count 324 (160-400) X10*3/uL MPV 9.9 (9.4-12.3) fL Immature Gran % (Auto) 0.5 H (0.0-0.4) % Neut % (Auto) 54.2 (45-73) % Lymph % (Auto) 32.8 (20-40) % [place] % (Auto) 7.6 (2-11) % Eos % (Auto) 4.4 H (0-4) % Baso % (Auto) 0.5 (0-2) % Lymph # (Auto) 2.6 (1.2-4.9) X10*3/uL [place] # (Auto) 0.6 (0.1-1.2) X10*3/uL Eos # (Auto) 0.4 (0.0-0.4) X10*3/uL Baso # (Auto) 0.0 (0.0-0.2) X10*3/uL Abs Immat Gran (auto) 0.04 H (0.00-0.03) X10*3/uL Absolute Neuts (auto) 4.3 (2.0-8.3) x10*3/uL Absolute Nucleated RBC 0.000 (0.0-0.012) X10*3/uL Nucleated RBC % (auto) 0.0 (0.0-0.2) /100WBC Sodium 140 (135-145) mmol/L Potassium 4.1 (3.3-5.1) mmol/L Chloride 106 (96-108) mmol/L Carbon Dioxide 25 (22-29) mmol/L Anion Gap 13 (12-20) BUN 22 H (9-16) mg/dL Creatinine 0.77 (0.5-1.4) mg/dL Estim Creat Clear Calc 79.0 Estimated GFR > 60 Random Glucose 105 (60-115) mg/dL Calcium 9.8 (8.4-10.2) mg/dL Magnesium 2.1 (1.6-2.6) mg/dL Total Bilirubin 0.6 (0.0-1.0) mg/dL Direct Bilirubin 0.2 (0.0-0.5) mg/dL AST 26 (5-31) U/L ALT 29 (0-31) U/L Alkaline Phosphatase 143 H (39-117) U/L Troponin I High Sens (<3.5-17.0) ng/L B-Natriuretic Peptide 14 (<100) pg/mL Total Protein 7.5 (6.5-8.0) g/dL Albumin 4.3 (3.5-5.0) g/dL 09/12/22 09/12/22 Range/Units 12:00 13:56 WBC (4.8-10.8) X10*3/uL RBC (4.20-5.50) X10*6/uL Hgb (12.0-16.0) g/dl Hct (37.0-47.0) % MCV (80.0-98.0) fL MCH (27.0-33.0) pg MCHC (31.0-35.0) g/dl RDW (11.0-16.0) % Plt Count (160-400) X10*3/uL MPV (9.4-12.3) fL Immature Gran % (Auto) (0.0-0.4) % Neut % (Auto) (45-73) % Lymph % (Auto) (20-40) % [place] % (Auto) (2-11) % Eos % (Auto) (0-4) % Baso % (Auto) (0-2) % Lymph # (Auto) (1.2-4.9) X10*3/uL [place] # (Auto) (0.1-1.2) X10*3/uL Eos # (Auto) (0.0-0.4) X10*3/uL Baso # (Auto) (0.0-0.2) X10*3/uL Abs Immat Gran (auto) (0.00-0.03) X10*3/uL Absolute Neuts (auto) (2.0-8.3) x10*3/uL Absolute Nucleated RBC (0.0-0.012) X10*3/uL Nucleated RBC % (auto) (0.0-0.2) /100WBC Sodium (135-145) mmol/L Potassium (3.3-5.1) mmol/L Chloride (96-108) mmol/L Carbon Dioxide (22-29) mmol/L Anion Gap (12-20) BUN (9-16) mg/dL Creatinine (0.5-1.4) mg/dL Estim Creat Clear Calc Estimated GFR Random Glucose (60-115) mg/dL Calcium (8.4-10.2) mg/dL Magnesium (1.6-2.6) mg/dL Total Bilirubin (0.0-1.0) mg/dL Direct Bilirubin (0.0-0.5) mg/dL AST (5-31) U/L ALT (0-31) U/L Alkaline Phosphatase (39-117) U/L Troponin I High Sens 18.0 H 18.0 H (<3.5-17.0) ng/L B-Natriuretic Peptide (<100) pg/mL Total Protein (6.5-8.0) g/dL Albumin (3.5-5.0) g/dL Independent Interpretation I performed an independent interpretation of an: EKG and Plain X-Ray Interpretation: My interpretation is in agreement with the radiologist's impression of this imaging study. EXAMINATION: XR CHEST CLINICAL INFORMATION: Chest pain. COMPARISON: 03/16/2017 chest radiographs. TECHNIQUE: 2 views of the chest were obtained. FINDINGS: Mild bibasilar linear markings are seen. The upper lung iqbal are clear. There are no pleural effusions. The heart and mediastinal structures are unremarkable. XR/XR chest 2V IMPRESSION: Mild bibasilar linear atelectasis/scarring. No acute cardiopulmonary process. Dictated By: Stefan Sewell MD Signed By: Electronically signed by Stefan Sewell MD 09/12/22 1234 Vent. Rate: 080 BPM ? ? Atrial Rate: 080 BPM P-R Int: 116 ms? QRS Dur: 084 ms QT Int: 370 ms ? ? ? P-R-T Axes: 041 049 027 degrees QTc Int: 426 ms ? Normal sinus rhythm Normal ECG When compared with ECG of 29-MAR-2022 07:51, No significant change was found ? Electronically Signed By:MATEUS KIM Dictated By: Mateus Kim MD Signed By: Electronically signed by Mateus Kim MD 09/12/22 1408 Radiology Impression Discussion of test interpretation with radiology: I have reviewed the radiologist's reading. Independent Historian Clinical information obtained from an independent historian. History obtained from or confirmed by: Spouse (patient's provided additional history and confirmed the history provided by the patient. ) Scores Heart Score History: -0- slightly suspicious ECG: -0- normal Age: -2- > or = 65 Risk factory: -0- no risk factors known Troponin: -0- < or = normal limit Score: 2 Risk: 1.7% Discharge Plan Discharge Clinical Impression: Edema Patient Disposition: Home, Self-Care Instructions: Edema (ED) Additional Instructions: Follow up with your primary care provider. Return to the emergency department immediately if your symptoms worsen or if you develop any dizziness, shortness of breath, difficulty breathing, chest pain, blurry vision, loss of vision, nausea, vomiting, abdominal pain, fever, chills, back pain, or any other complaints. Prescriptions: No Action epinephrine [EpiPen 2-Hebert] 0.3 mg/0.3 mL auto-injector 0.3 mg IM DIRECTED ezetimibe 10 mg tablet 1 tab PO DAILY loratadine 10 mg Tablet 10 mg PO DAILY@1200 Qty: 30 0RF albuterol sulfate [Ventolin HFA] 90 mcg/actuation Hfa Aerosol Inhaler 2 puff inhalation Q4H PRN (Reason: Shortness Of Breath Or Wheezing) Qty: 6.7 0RF methocarbamol 500 mg tablet 500 mg PO BID PRN (Reason: muscle spasm) 30 Days Qty: 60 0RF diclofenac sodium [Arthritis Pain (diclofenac)] 1 % gel 4 g topical QID Qty: 100 0RF lidocaine 5 % adhesive patch,medicated 1 patch topical DAILY 30 Days Qty: 30 0RF Referrals: Sandra Cruz MD [Primary Care Provider] - Print Language: Swazi
[2022-09-12 13:24] VITALS: BP 134/54; PULSE 68; RESP 16; O2SAT 95
== END 2022-09-12 14:46 | disposition home or self-care (01) ==
PROVIDERS: Emergency Provider Emergency Medicine Emergency Medical Services; PCP Internal Medicine
DX: R60.0 Localized edema (principal); R06.2 Wheezing; E78.00 Pure hypercholesterolemia, unspecified; E66.9 Obesity, unspecified; Z68.35 Body mass index [BMI] 35.0-35.9, adult; Z79.899 Other long term (current) drug therapy; Z87.891 Personal history of nicotine dependence
CPT/HCPCS: 36415; 71046; 80048; 80076; 83735; 83880; 84484; 85025; 93005; 99283; 99284

== ENCOUNTER 2022-11-18 14:00 | Outpatient (RCR) | payer MEDICARE, SELFPAY ==
--- NOTE | 2022-12-06 08:18 | MHC.PT.DC ---
[facility] [place] Office [place] [facility] [place] [facility] [address] [place] [address] [phone] F: [phone] F: [phone] F: [phone] F: [phone] Physical Therapy Discharge Report Diagnosis: Lumbar stenosis Date of Surgery: Date of Evaluation: 09/23/22 Date of Discharge: 12/06/22 Treatments to Date: 8 Cancellations to Date: 0 No Shows to Date: 0 Discharge Status: Achieved Goals Improved Function Independent with HEP Discharge Summary: progressed well in PT and is able to perform HEP with independence Electronically signed by: MARIA ANTONIA BRAGA PT DPT Please sign and return to therapist. Thank you for your referral.
== END 2022-12-06 08:18 | disposition home or self-care (01) ==
LOC: HO.PT 14:00
PROVIDERS: PCP Nurse Practitioner Acute Care; Visit Provider Nurse Practitioner Family
DX: M62.830 Muscle spasm of back (principal); M48.061 Spinal stenosis, lumbar region without neurogenic claudication; M54.16 Radiculopathy, lumbar region
CPT/HCPCS: 97014; 97110; 97112; 97140; 97163; 97530

== ENCOUNTER 2023-03-18 09:52 | Emergency (ER) | payer MEDICARE, SELFPAY ==
--- NOTE | ~2023-03-18 | XR_ITS ---
EXAMINATION: XR CHEST CLINICAL INFORMATION: Cough COMPARISON: 09/12/2022 TECHNIQUE: 2 views of the chest were obtained. FINDINGS: Lungs are hypoinflated. Heart size is normal. Again seen is bibasilar atelectasis. The atelectasis is slightly increased in the region of the lingula at the left lung base and a superimposed infectious infiltrate could be present. No pleural effusions. No evidence of CHF. XR/XR chest 2V IMPRESSION: Bibasilar atelectasis with question of superimposed infectious infiltrate in the lingula.
[2023-03-18 10:06] VITALS: BP 145/88; PULSE 85; RESP 19; TEMP 36.6; O2SAT 96; BMI 36.7
[2023-03-18 11:11] LABS: Influenza A PCR NEGATIVE (Negative); Influenza B PCR NEGATIVE (Negative); Resp Syncy Virus RNA Qual PCR NEGATIVE (Negative); SARS COV2 PCR INHOUSE POSITIVE (Negative)
[2023-03-18 13:41] VITALS: BP 158/63; PULSE 93; RESP 18; O2SAT 94
--- NOTE | 2023-03-18 15:19 | ED.EXTPRO ---
HPI - Extremity Problem General Chief complaint: Upper Respiratory Symptoms Stated complaint: ? COVID RSV Time Seen by Provider: 03/18/23 13:46 Source: patient, RN notes reviewed and old records reviewed Mode of arrival: ambulatory History of Present Illness HPI Narrative: 67-year-old female with a past medical history of IBS, depression, GERD, HLD, gallstones, presenting to the ED complaining of dry cough, body aches, congestion, chest discomfort with cough and rhinorrhea x 1 month worsening over the past few days. Reports associated SOB and fever. Has been sick with similar symptoms. Denies pedal edema, abdominal pain Related Data Home Medications Medication Instructions Recorded Confirmed epinephrine 0.3 mg/0.3 mL 0.3 mg IM DIRECTED 03/29/22 03/30/22 injection, auto-injector (EpiPen 2-Hebert) ezetimibe 10 mg tablet 1 tab PO DAILY 03/29/22 03/29/22 Previous Rx's Medication Instructions Recorded albuterol sulfate 90 mcg/actuation 2 puff inhalation Q4H PRN 04/03/22 aerosol inhaler (Ventolin HFA) Shortness Of Breath Or Wheezing #6.7 grams loratadine 10 mg tablet 10 mg PO DAILY@1200 #30 tabs 04/03/22 diclofenac sodium 1 % topical gel 4 g topical QID pain #100 grams 08/29/22 (Arthritis Pain (diclofenac)) lidocaine 5 % topical patch 1 patch topical DAILY pain 30 days 08/29/22 #30 ea methocarbamol 500 mg tablet 500 mg PO BID PRN for muscle spasm 11/21/22 #60 tabs albuterol sulfate 90 mcg/actuation 2 puff inhalation Q4-6H PRN 03/18/23 aerosol inhaler shortness of breath or wheezing #6.7 grams amoxicillin 875 mg-potassium 1 tab PO BID 7 days #14 tabs 03/18/23 clavulanate 125 mg tablet azithromycin 250 mg tablet See Rx Instructions PO .COMPLEX #6 03/18/23 tabs benzonatate 100 mg capsule 100 mg PO TID PRN cough #14 caps 03/18/23 Allergies Allergy/AdvReac Type Severity Reaction Status Date / Time cat dander Allergy Unknown Unknown Verified 09/12/22 11:40 ciprofloxacin Allergy Unknown gastritis Verified 09/12/22 11:40 gabapentin Allergy Unknown Anaphylaxis Verified 09/12/22 11:40 hornet venom [HORNETS] Allergy Unknown ANAPHYLACTI Verified 09/12/22 11:40 C latex Allergy Unknown Rash Verified 09/12/22 11:40 metronidazole Allergy Unknown GI distress Verified 09/12/22 11:40 pregabalin [From Lyrica] Allergy Unknown Angioedema Verified 09/12/22 11:40 sorbitol [SORBITOL] Allergy Unknown RASH Verified 09/12/22 11:40 sulfamethoxazole Allergy Unknown RASH Verified 09/12/22 11:40 [From BACTRIM] sulfasalazine Allergy Unknown Rash Verified 09/12/22 11:40 trimethoprim [From BACTRIM] Allergy Unknown RASH Verified 09/12/22 11:40 iodine Allergy Hives Verified 03/18/23 10:06 medrol dose pack Allergy Severe face Uncoded 10/16/21 15:50 swelling DUST Allergy Unknown SINUS Uncoded 10/16/21 15:50 INFECTION bandaids Allergy Unknown Uncoded 10/16/21 15:50 contrast Allergy rash on Uncoded 10/16/21 15:50 face betamethasone dipropriate AdvReac Severe rash Uncoded 10/16/21 15:50 Review of Systems Review of Systems: Constitutional: + Fever, No Chills, + myalgias ENT/Mouth: No Ear Pain, + Nasal Congestion, No Sinus Pain, No sore throat, + Rhinorrhea, No Swallowing Difficulty Cardiovascular: + Chest Pain, + SOB Respiratory: + Cough, No Sputum, No Wheezing Gastrointestinal: No Nausea, No Vomiting, No Diarrhea, No Constipation, No Abdominal pain Musculoskeletal: No joint pain, + Myalgias, No Joint Swelling Skin: No Skin Lesions, No rash Neuro: No Weakness Yes all other systems are reviewed and are negative Constitutional: Constitutional: Reports as per [facility] Past Medical History Attestation statement: The following information was validated with the patient. Source: old records reviewed Onset Date is defined in the Problem List Problems that require an onset date and time if occurred within 24 hrs of arrival to the ED Aortic Dissection and Rupture; Neurologic impairment; Cardiopulmonary Arrest; Endotracheal Intubation; Insertion or Replacement of Mechanical Circulatory Assist Device Medical History Vulvodynia Adjustment disorder with mixed anxiety and depressed mood Other screening mammogram IBS (irritable bowel syndrome) Depression GERD (gastroesophageal reflux disease) Hypercholesterolemia Lung nodule Proctalgia fugax Pelvic floor dysfunction Anal sphincter incompetence Gallstones Chronic bilateral low back pain without sciatica Acute allergic rhinitis Surgical History Hx of colonoscopy Hx of tonsillectomy Family History Family History Mother Diabetes Pancreatic cancer Kidney problem Father Lung cancer Brother Peripheral vascular disease Brother CAD (coronary artery disease) Brother No problems noted. Sister Diabetes Sister Depression Maternal Grandmother Diabetes Hypertension Stroke Maternal Grandfather Lung disease Tuberculosis Other Colon cancer Ovarian cancer Stomach cancer Uterine cancer Social History Social History Household Members: Spouse Housing: House Do you presently have visiting nurse or other home services: No Alcohol intake: current Alcohol intake frequency: a few times a week Alcohol type: wine Patient Tobacco Use Status: Former Tobacco user Quit Date: 2016 Tobacco use type: Cigarette Cigarette Packs Per Day: 1 Cigarettes Per Day: 20.0 Years Smoked: 40 e-Cigarette/Vaping Use: Former Use Advance Directives: Yes Advance Directives on File: Yes Advance Directives Date on File: 10/10/21 service: No Sexual orientation: Straight/Heterosexual Physical Exam Vital Signs: Vital Signs: Last Vital Signs Temp 98 F 03/18/23 10:06 Pulse 93 03/18/23 13:41 Resp 18 03/18/23 13:41 BP 158/63 H 03/18/23 13:41 Pulse Ox 94 03/18/23 13:41 O2 Del Method Room Air 03/18/23 13:41 BMI result Body Mass Index 36.7 Const: General: cooperative, healthy appearing and no acute distress Orientation/consciousness: patient oriented x3 Limitations: no limitations HEENT: Head: Yes normal to inspection and Yes atraumatic Ears: hearing grossly normal bilaterally General nose exam: Normal external nose present Face and sinus: Yes normal facial exam Eyes: General: appearance normal, both eyes and all related structures EOM: EOMs intact bilaterally Neck: Neck: Yes normal visual inspection and Yes no meningeal signs Resp: Effort & Inspection: normal respiratory effort, not labored, no nasal flaring and no respiratory distress Auscultation: clear to auscultation bilaterally, no crackles and no wheezes Cardio: Rate: regular rate Heart sounds: S1 normal heart sound present and S2 normal heart sound present Skin: Rashes: no rashes Wounds: no wounds Neuro: General: patient oriented x3, tone normal and no meningeal signs Cranial nerves: Yes CN's II-XII intact bilaterally Gait exam (Neuro): Normal gait present Extrem: General: Yes normal to inspection Course Course Course Narrative: XR chest 2V IMPRESSION: Bibasilar atelectasis with question of superimposed infectious infiltrate in the lingula. -COVID-19 positive Results discussed with patient including worrisome signs and symptoms and strict return precautions, and when to return to the emergency department. They verbalized understanding and feel safe for discharge at this time. Medical Decision Making Medical Decision Making MDM Narrative: 67-year-old female with a past medical history of IBS, depression, GERD, HLD, gallstones, presenting to the ED complaining of dry cough, body aches, congestion, chest discomfort with cough and rhinorrhea x 1 month worsening over the past few days. On exam vital signs stable, NAD, nontoxic appearing, talking in complete sentences, lungs CTA. Patient agitated/irritated with wait time and would like to be discharged immediately. Discussed results of COVID-19 positive and x-ray with suspicion of pneumonia Low suspicion for ACS/PE or DVT Please refer to course for remaining clinical decision making, interpretation of labs/imaging results, and discussions with consultants and/or family members. Results discussed with patient including worrisome signs and symptoms and strict return precautions, and when to return to the emergency department. They verbalized understanding and feel safe for discharge at this time. Differential Diagnosis Differential Diagnoses: The differential diagnosis associated with the presentation includes As above Admission/Observation Consideration of admission/observation: Escalation of care including admission/observation considered Lab Data MDM Lab Attestation statement: I reviewed the patient's lab results. Labs: Lab Results 03/18/23 Range/Units 10:14 Influenza Type A (PCR) NEGATIVE (Negative) Influenza Type B (PCR) NEGATIVE (Negative) RSV RNA Qual (PCR) NEGATIVE (Negative) SARS-CoV-2 RNA (RT-PCR) POSITIVE A (Negative) Independent Interpretation I performed an independent interpretation of an: Plain X-Ray Radiology Impression Discussion of test interpretation with radiology: I have reviewed the radiologist's reading. Independent Historian Clinical information obtained from an independent historian. History obtained from or confirmed by: Spouse External Record Review External record reviewed: Inpatient record, Office record, Outpatient record, Prior outpatient labs, Prior outpatient radiology, Primary care record and Outside ED record Tests considered The following testing was considered but not selected: As above Prescription Management I considered prescription management with: Pain Medication, Antiviral and Antibiotic Chronic Conditions Patient?s care impacted by: Hypertension Discharge Plan Discharge Clinical Impression: COVID-19 Patient Disposition: Home, Self-Care Instructions: COVID-19 (Coronavirus Disease 2019) (ED) Additional Instructions: YOU HAVE COVID-19 Augmentin and Z-Hebert are antibiotics please take as prescribed. Use inhaler as needed for shortness of breath/wheezing Tessalon Perles for cough At this time you will be okay for discharge. Please self isolate for 5 days. Do not expose yourself to others. You may not go to work or school. Please continue to follow cold instructions and wash your hands frequently. You may take Tylenol / Motrin as directed on the bottle for pain or fever. If you have constant or persistent shortness of breath, fever unresolved with medications, chest pain, or your unable to eat or drink please return to the ED CDC Guidelines for home isolation: - Stay away from others - WEAR A MASK if you are sick AND STAY HOME - Cover your mouth and nose with a tissue when you cough or sneeze. Dispose of tissues in a lined trash can and wash your hands immediately with soap and water for at least 20 seconds. If soap and water are not available, clean hands with alcohol-based hand charge account authorizer that contains at least 60% alcohol. - Clean your hands often with soap and water for at least 20 seconds - Avoid touching your eyes, nose and mouth with unwashed hands - Do not share dishes, drinking glasses, cups, eating utensils, towels, or bedding with other people in your home. After using these items, wash them thoroughly with soap and water or put in the manager interventional. - Clean high-touch surfaces in your isolation area ( sick room and bathroom) every day; let a caregiver clean and disinfect high-touch surfaces in other areas of the home. Clean the area or item with soap and water or another detergent if it is dirty. Then, use a household disinfectant. - Limit contact with pets and animals: If you must care for a pet, wash your hands before and after interacting with them) Prescriptions: New azithromycin 250 mg tablet See Rx Instructions .ROUTE .COMPLEX Qty: 6 0RF Rx Instructions: take 500 mg today (day 1), then 250 mg for 4 days (days 2-5) benzonatate 100 mg capsule 100 mg PO TID PRN (Reason: cough) Qty: 14 0RF albuterol sulfate 90 mcg/actuation HFA aerosol inhaler 2 puff inhalation Q4-6H PRN (Reason: shortness of breath or wheezing) Qty: 6.7 0RF amoxicillin-pot clavulanate 875-125 mg tablet 1 tab PO BID 7 Days Qty: 14 0RF No Action methocarbamol 500 mg tablet 500 mg PO BID PRN (Reason: for muscle spasm) Qty: 60 0RF epinephrine [EpiPen 2-Hebert] 0.3 mg/0.3 mL auto-injector 0.3 mg IM DIRECTED ezetimibe 10 mg tablet 1 tab PO DAILY loratadine 10 mg Tablet 10 mg PO DAILY@1200 Qty: 30 0RF albuterol sulfate [Ventolin HFA] 90 mcg/actuation Hfa Aerosol Inhaler 2 puff inhalation Q4H PRN (Reason: Shortness Of Breath Or Wheezing) Qty: 6.7 0RF diclofenac sodium [Arthritis Pain (diclofenac)] 1 % gel 4 g topical QID Qty: 100 0RF lidocaine 5 % adhesive patch,medicated 1 patch topical DAILY 30 Days Qty: 30 0RF Referrals: Sandra Cruz MD [Primary Care Provider] - 1 week
== END 2023-03-18 15:33 | disposition home or self-care (01) ==
PROVIDERS: Emergency Provider Student in an Organized Health Care Education/Training Program; PCP Internal Medicine
DX: U07.1 COVID-19 (principal); R05.9 Cough, unspecified
CPT/HCPCS: 0241U; 71046; 99283

== ENCOUNTER 2023-03-20 19:25 | Emergency (ER) | payer MEDICARE, SELFPAY ==
--- NOTE | ~2023-03-20 | CT_ITS ---
EXAMINATION: CT head/brain wo IV con CLINICAL INFORMATION: Reason for Exam altered mental status COMPARISON: CT head without contrast 03/29/2022 TECHNIQUE: Contiguous axial imaging was performed from the skull base to vertex without intravenous contrast. Sagittal and coronal reformatted images were obtained. This CT examination was performed using dose optimization techniques as appropriate, variously including the following: * Automated exposure control * Adjustment of mA and/or kV according to patient size (this includes techniques or standardized protocols for targeted exams where dose is matched to indication/reason for exam; i.e. extremities or head) Use of iterative reconstruction technique DLP: 677.47 mGy-cm FINDINGS: No acute osseous or soft tissue abnormality. The mastoids are clear. Mild scattered paranasal sinus mucosal thickening. There is no evidence of acute intracranial hemorrhage or territorial infarction. No abnormal mass effect or midline shift is seen. Nesbitt to white matter differentiation is well preserved. No extra-axial fluid collections are identified. No hydrocephalus. No significant volume loss. There is no abnormal attenuation within the brain parenchyma. CT/CT head/brain wo IV con IMPRESSION: No acute intracranial abnormality including hemorrhage, mass effect, hydrocephalus, or acute territorial edematous infarction.
--- NOTE | ~2023-03-20 | CT_ITS ---
EXAMINATION: CT CHEST WITHOUT CONTRAST CLINICAL INFORMATION: Hypoxia. Covid-positive. COMPARISON: CXR from 03/18/2023 and 03/21/2023. Abdomen CT from 06/25/2016. TECHNIQUE: Multidetector volumetric CT imaging of the chest was done. Axial MIP volume rendering provided. Sagittal and coronal reformatted images were obtained. This CT examination was performed using dose optimization techniques as appropriate, variously including the following: *Automated exposure control *Adjustment of mA and/or kV according to patient size (this includes techniques or standardized protocols for targeted exams where dose is matched to indication/reason for exam; i.e. extremities or head) *Use of iterative reconstruction technique DLP: 312 mGy-cm FINDINGS: Moderate centrilobular and paraseptal emphysema. Lungs are hypoinflated. The opacities of lower lobes, middle lobe and inferior lingula predominate have curvilinear or linear platelike appearance consistent with atelectasis. No mucous plugging of bronchi. No imaging findings to suggest an active viral pneumonitis. Small calcified granuloma within the superior segment right lower lobe. Also, there appears to be an old stable 0.2 cm nodule in the posterior right lower lobe (image 244, series 4). 0.7 cm subpleural nodule is present in the posteromedial right lower lobe (image 221, series 4). This region of the lung was not included in the [id number] on the abdomen CT from 06/25/2021. Based on Fleischner Society guidelines for nodules of 0.6 - 0.8 cm size, follow-up recommendations vary depending upon estimated clinical risk. In a low-risk patient, chest CT follow-up is recommended at 3-6 months, then consider CT (optional CT) at 18-24 months. In a high risk patient, recommend chest CT follow-up at 3-6 months, then obtain CT at 18-24 months. Cardiac chambers are normal in size. No pericardial effusion. Aortic valve is calcified. Atherosclerosis of the thoracic aorta without aneurysm. Pulmonary arteries are normal in caliber. Mild atherosclerotic calcification of coronary arteries is present. No mediastinal mass. The visualized portion of the thyroid gland is normal. No pathologic sized lymph nodes. There appears to be a very small sliding-type hiatal hernia. No acute abnormalities within the visualized upper abdomen. 3.4 cm cyst in the right lobe of the liver has a simple appearance. Also, 1.3 cm simple cyst in the left hepatic lobe. Mild multilevel discovertebral degenerative change of the thoracic spine. No acute or suspicious osseous abnormality. CT/CT chest wo IV con IMPRESSION: * Moderate pulmonary emphysema. * Lungs are hypoinflated and there are linear and curvilinear opacities of atelectasis within lower lung zones. No overt consolidation or pleural effusion. No evidence of viral pneumonitis. * Nonspecific 0.7 cm subpleural nodule of the posteromedial right lower lobe. Chest CT follow-up is recommended.
--- NOTE | ~2023-03-20 | XR_ITS ---
EXAMINATION: XR CHEST CLINICAL INFORMATION: Possible worsening pneumonia COMPARISON: 03/18/2023 TECHNIQUE: Frontal view of the chest was obtained. FINDINGS: There is improved aeration at the right lung base but the left lung base is probably unchanged. The cardiomediastinal silhouette is stable. XR/XR chest 1V IMPRESSION: Improved aeration at the right lung base.
[2023-03-20 19:30] VITALS: BP 140/69; PULSE 120; RESP 20; TEMP 36.7; O2SAT 92; BMI 38.2
--- NOTE | 2023-03-20 19:32 | ED.AMS ---
HPI - Altered Mental Status General Chief Complaint: Altered Mental Status Stated Complaint: ams Time Seen by Provider: 03/20/23 19:47 Source: patient and other Mode of arrival: ambulatory History of Present Illness HPI narrative: 67-year-old female who arrives after being dropped off by police but the police never spoke with staff. To the triage nurse that she has not been feeling well and wants to see Dr. Bangura and initially inform them that she was looking for her . When was contacted he states that he fell asleep and when he woke up found that his was not at home. When I spoke to the patient she is extremely disorganized and states that her has Parkinson's and that she is his healthcare proxy and she did not feel safe at home and so she left the house. She is unable to tell me where she was going. Related Data Home Medications Medication Instructions Recorded Confirmed epinephrine 0.3 mg/0.3 mL 0.3 mg IM DIRECTED 03/29/22 03/21/23 injection, auto-injector (EpiPen 2-Hebert) ezetimibe 10 mg tablet 1 tab PO DAILY 03/29/22 03/21/23 atorvastatin 10 mg tablet 10 mg PO DAILY 03/21/23 03/21/23 lidocaine 5 % topical patch 1 patch topical DAILY PRN pain 03/21/23 03/21/23 trazodone 100 mg tablet 100 mg PO BEDTIME PRN Insomnia 03/21/23 03/21/23 Previous Rx's Medication Instructions Recorded loratadine 10 mg tablet 10 mg PO DAILY@1200 #30 tabs 04/03/22 albuterol sulfate 90 mcg/actuation 2 puff inhalation Q4-6H PRN 03/18/23 aerosol inhaler shortness of breath or wheezing #6.7 grams amoxicillin 875 mg-potassium 1 tab PO BID 7 days #14 tabs 03/18/23 clavulanate 125 mg tablet azithromycin 250 mg tablet See Rx Instructions PO .COMPLEX #6 03/18/23 tabs benzonatate 100 mg capsule 100 mg PO TID PRN cough #14 caps 03/18/23 Allergies Allergy/AdvReac Type Severity Reaction Status Date / Time cat dander Allergy Unknown Unknown Verified 03/20/23 19:39 ciprofloxacin Allergy Unknown gastritis Verified 03/20/23 19:39 gabapentin Allergy Unknown Anaphylaxis Verified 03/20/23 19:39 hornet venom [HORNETS] Allergy Unknown ANAPHYLACTI Verified 03/20/23 19:39 C latex Allergy Unknown Rash Verified 03/20/23 19:39 metronidazole Allergy Unknown GI distress Verified 03/20/23 19:39 pregabalin [From Lyrica] Allergy Unknown Angioedema Verified 03/20/23 19:39 sorbitol [SORBITOL] Allergy Unknown RASH Verified 03/20/23 19:39 sulfamethoxazole Allergy Unknown RASH Verified 03/20/23 19:39 [From BACTRIM] sulfasalazine Allergy Unknown Rash Verified 03/20/23 19:39 trimethoprim [From BACTRIM] Allergy Unknown RASH Verified 03/20/23 19:39 iodine Allergy Hives Verified 03/20/23 19:39 medrol dose pack Allergy Severe face Uncoded 10/16/21 15:50 swelling DUST Allergy Unknown SINUS Uncoded 10/16/21 15:50 INFECTION bandaids Allergy Unknown Uncoded 10/16/21 15:50 contrast Allergy rash on Uncoded 10/16/21 15:50 face betamethasone dipropriate AdvReac Severe rash Uncoded 10/16/21 15:50 Review of Systems Review of Systems: Pertinent positives and negatives as stated in HPI [facility] Past Medical History Source: nursing notes reviewed Onset Date is defined in the Problem List Problems that require an onset date and time if occurred within 24 hrs of arrival to the ED Aortic Dissection and Rupture; Neurologic impairment; Cardiopulmonary Arrest; Endotracheal Intubation; Insertion or Replacement of Mechanical Circulatory Assist Device Medical History Vulvodynia Adjustment disorder with mixed anxiety and depressed mood Other screening mammogram IBS (irritable bowel syndrome) Depression GERD (gastroesophageal reflux disease) Hypercholesterolemia Lung nodule Proctalgia fugax Pelvic floor dysfunction Anal sphincter incompetence Gallstones Chronic bilateral low back pain without sciatica Acute allergic rhinitis Surgical History Hx of colonoscopy Hx of tonsillectomy Family History Family History Mother Diabetes Pancreatic cancer Kidney problem Father Lung cancer Brother Peripheral vascular disease Brother CAD (coronary artery disease) Brother No problems noted. Sister Diabetes Sister Depression Maternal Grandmother Diabetes Hypertension Stroke Maternal Grandfather Lung disease Tuberculosis Other Colon cancer Ovarian cancer Stomach cancer Uterine cancer Social History Social History Household Members: Spouse Housing: House Do you presently have visiting nurse or other home services: No Alcohol intake: never Patient Tobacco Use Status: Former Tobacco user Quit Date: 2016 Tobacco use type: Cigarette Cigarette Packs Per Day: 1 Cigarettes Per Day: 20.0 Years Smoked: 40 Smoked in Last 30 Days: Yes e-Cigarette/Vaping Use: Former Use Use of substances other than those prescribed or required for medical reasons: No Advance Directives: Yes Advance Directives on File: Yes Advance Directives Date on File: 10/10/21 Healthcare Proxy: No Guardian: No service: No Sexual orientation: Straight/Heterosexual Physical Exam ED Vital Signs: Vital Signs - 24 hr 03/25/23 14:00 03/26/23 05:15 Temperature 97.2 F 97.6 F Pulse Rate 96 85 Respiratory Rate 18 19 Blood Pressure 145/65 H 151/75 H Pulse Oximetry 92 91 L Oxygen Delivery Method Room Air Room Air BMI result Body Mass Index 38.2 VITAL SIGNS: Reviewed. GENERAL: Well developed, well nourished, in no acute distress. HEAD: Normocephalic/atraumatic EYES: PERRLA, EOMI EARS: Ext canals without abnormality NOSE: Nares patent bilateral OROPHARYNX: no oral lesions noted, posterior pharynx clear NECK: Supple, no adenopathy LUNGS: Normal breath sounds. No adventitious sounds or accessory muscle use. SpO2<92> CARDIOVASCULAR: Regular rate and rhythm without noted murmurs, no JVD or lower extremity edema. ABDOMEN: Soft, non-tender, non-distended with bowel sounds. MUSCULOSKELETAL: No tenderness, deformities, or effusions noted on gross inspection. EXTREMITIES: No cyanosis, clubbing or edema. SKIN: Inspection of the skin reveals no rashes NEUROLOGIC: Alert and oriented x 3. Strength and sensation to light touch were grossly intact x 4, cranial nerves 2-12 are grossly intact. PSYCH: Disorganized thought process, delusions Course Course Course Narrative: Dropped off in the waiting room by police. Found wandering on the streets stating she needed to be seen by a Neurologist. When nursing called , was taking a nap when the pt left the home. Worsening altered mental status for the last several months. Been hospitalized for behavioral health in the past. Denies SI/HI per . Denies CP, SOB, n/v/d, fever, chills Reports headache without vision changes. States she is going 'out of her mind' with worry for her RME: Oriented to person only, NAD, LS CTA, HR RRR, abd SNT Plan: EKG, blood work, CT head, UA Reevaluation(s) Reevaluation #1: The patient was signed out to me this morning by the overnight physician. The patient is a 67-year-old woman who has tested positive for COVID who came to the hospital because of bizarre behavior. She had apparently been wandering outside in bad weather and was dropped off here by police. There was a question of whether she might have a pulmonary embolism because her oxygen saturations were low. CT pulmonary angiogram could not be done because of an allergy and a V/Q scan had been ordered. During my shift we obtained a noncontrast CT of the chest and a D-dimer. The D-dimer was normal. The noncontrast CT scan showed emphysema and a small nodule but no other acute process. Given the normal D-dimer I canceled the V/Q scan. The patient was given Tylenol and ketorolac for pain. From a medical and clinical point of view the patient looked physically much better after the ketorolac. She was moving around easily and breathing much more easily. She had also been given some albuterol. However the patient seemed to exhibit some delusional or possibly manic behaviors. She was compulsively cleaning her room. She was then seen by the care team and recommendation is for psychiatric hospitalization. I think the patient is medically clear for disposition by behavioral health. Time: 17:35 Reevaluation #2: Patient saturating 87% with very mild exertion/stand pivot to the commode patient 91% on room air saturating 87 after very minimal exertion. Plan at this time hospital admission for COVID hypoxia. Reevaluation #3: Though patient needs acute admission at this time. There would be no changes in her treatment. They will re-evaluate her tomorrow if she is still hypoxic they will admit her. Will be placed back into physician observation to allow more time for patient to have be placed into an inpatient psychiatric unit Time: 15:43 Additional Reevaluation(s): Phys obs to be continued. VSS uneventfulnight.No complaints overnight from nursing or today during my shift. Consultations Consultation #1: Physician observation continued. Patient is a bed search. Patient not in distress Time: 08:52 Consultation #2: 03/25/2023 0953 -- Physician observation continues. Patient is a bed search. 03/25/2023 1435 -- Spoke with CARE team who recommend discharge tomorrow, 03/26/2023. 03/26/2023--physician observation completed. Patient was re-evaluated by Psychiatry yesterday and appeared more stable, stable to return home per aircraft stress analyst. Recommended decreasing Risperidone to 0.5mg p.o. b.i.d. patient's will be picking her up at 10:00AM Medications Administered Generic Name Dose Route Start Last Admin Trade Name Freq PRN Reason Stop Dose Admin Albuterol Sulfate 2 puff 03/22/23 09:47 03/23/23 20:36 Albuterol Sulfate 90 Mcg 8 Gm Inhaler INHALE 2 puff Q4H PRN Administration shortness of breath or wheezin Atorvastatin Calcium 10 mg 03/23/23 09:00 03/25/23 07:31 Atorvastatin Calcium 10 Mg Tablet PO 10 mg DAILY ARRON Administration Benzocaine 1 lozenge 03/22/23 21:42 03/23/23 07:26 Throat Lozenge, Medicated Lozenge MUCOUS MEM 1 lozenge RQ6H PRN Administration thoat pain Benzonatate 100 mg 03/22/23 09:47 03/23/23 16:15 Benzonatate 100 Mg Capsule PO 100 mg TID PRN Administration cough Ezetimibe 10 mg 03/23/23 09:00 03/25/23 07:31 Ezetimibe 10 Mg Tablet PO 10 mg DAILY ARRON Administration Guaifenesin/Codeine Phosphate 10 ml 03/22/23 19:50 03/25/23 00:30 Guaifen/Codeine Sf 200/20/10ml 10 Ml Liquid PO 10 ml RQ6H PRN Administration Cough Lidocaine 1 patch 03/22/23 09:56 03/24/23 13:07 Lidocaine 4 % Patch Adh..Patch TRANSDERMA 1 patch DAILY PRN Administration pain Loratadine 10 mg 03/22/23 12:00 03/25/23 13:59 Loratadine 10 Mg Tablet PO 10 mg DAILY@1200 ARRON Administration Risperidone 0.5 mg 03/25/23 21:00 03/25/23 20:48 Risperidone 0.5 Mg Tablet PO Not Given BID ARRON Trazodone HCl 100 mg 03/22/23 09:47 03/23/23 20:34 Trazodone Hcl 100 Mg Tablet PO 100 mg BEDTIME PRN Administration Insomnia Discontinued Medications Generic Name Dose Route Start Last Admin Trade Name Malik PRN Reason Stop Dose Admin Acetaminophen 975 mg 03/20/23 21:08 03/20/23 21:15 Acetaminophen 325 Mg Tablet PO 03/20/23 21:09 975 mg ONCE ONE Administration Acetaminophen 975 mg 03/21/23 09:15 03/21/23 09:34 Acetaminophen 325 Mg Tablet PO 03/21/23 09:16 975 mg ONCE ONE Administration Acetaminophen 975 mg 03/22/23 10:40 03/22/23 11:19 Acetaminophen 325 Mg Tablet PO 03/22/23 10:41 975 mg ONCE ONE Administration Albuterol Sulfate 2 puff 03/21/23 10:07 03/21/23 10:16 Albuterol Sulfate 90 Mcg 8 Gm Inhaler INHALE 03/21/23 10:08 2 puff ONCE ONE Administration Magnesium Sulfate 2 gm in 50 mls @ 150 mls/hr 03/20/23 20:46 03/20/23 23:30 Magnesium Sulfate/H2o IV 03/20/23 21:05 Infused ONCE ONE Infusion Sodium Chloride 1,000 mls @ 999 mls/hr 03/20/23 21:15 03/20/23 23:30 Ns IV 03/20/23 22:15 Infused .Q1H1M ARRON Infusion Sodium Chloride 1,000 mls @ 999 mls/hr 03/20/23 23:00 03/21/23 00:23 Ns IV 03/21/23 00:00 Not Given .Q1H1M ARRON Ceftriaxone Sodium 1 gm/ 50 mls @ 100 mls/hr 03/21/23 06:43 03/21/23 09:33 Sodium Chloride IV 03/21/23 07:12 Infused ONCE ONE Infusion Azithromycin 500 mg/ Sodium 250 mls @ 125 mls/hr 03/21/23 06:43 03/21/23 15:22 Chloride IV 03/21/23 08:42 Infused ONCE ONE Infusion Ketorolac Tromethamine 15 mg 03/21/23 10:36 03/21/23 11:49 Ketorolac Tromethamine 15 Mg/Ml Vial IVPUSH 03/21/23 10:37 15 mg ONCE ONE Administration Oxycodone HCl 5 mg 03/22/23 03:32 03/22/23 03:43 Oxycodone Hcl Immed Release 5 Mg Tablet PO 03/22/23 03:33 5 mg ONCE ONE Administration Oxycodone HCl 5 mg 03/22/23 21:42 03/22/23 21:55 Oxycodone Hcl Immed Release 5 Mg Tablet PO 03/22/23 21:43 5 mg ONCE ONE Administration Risperidone 1 mg 03/24/23 14:30 03/25/23 07:31 Risperidone 1 Mg Tablet PO 1 mg BID ARRON Administration Medical Decision Making Medical Decision Making MDM Narrative: 67-year-old female with history and clinical presentation, DDX: Acute psychosis, infection, anemia, electrolyte abnormality, toxicology. Reviewed all investigations and hematologic indices demonstrated leukocytosis and left shift as well as the slight elevation of platelets and no anemia. Chemistry indices do not demonstrate any RIOS or electrolyte/liver enzyme derangements. High sensitivity troponin is been reported at 64.8 without acute changes on EKG other than tachycardia but I suspect that this is secondary to underlying febrile state. Patient received Tylenol, in addition EKG was noted to demonstrate QTC prolongation over 600 and patient will receive 2 g of magnesium sulfate and will repeat. Viral testing positive for COVID-19. On review of prior documentation patient was diagnosed with COVID-19 on 03/18 and on review of that documentation stated that patient has gallstones. She has not demonstrated any nausea or vomiting. Head CT is noted to be negative for acute intracranial bleed or mass effect. Patient has no focal deficits. 2105: Patient placed under a Section 12 for concerns regarding acute psychosis. This was completed after reviewing prior documentation and notes from both Psychiatry, Neurology and prior provider. 2209: Pending urinalysis/UDS, will repeat troponin 2254: 2nd troponin is flat further demonstrating the fact that this is likely a demand elevation as well as patient not having any complaints of chest pain, and still have not obtained a urinalysis/UDS. 0015: I reviewed urinalysis and UDS which both are negative. Patient is otherwise medically cleared for further evaluation by the care team. Patient placed in physician observation because the patient needed more time for evaluation by the care team. At the time observation was started the patient's vital signs were stable, patient is alert and oriented but slightly agitated, neuro: Nonfocal, CV RRR, lungs clear 06:16: I was informed by the patient's nurse that patient desaturates to 86- 87% while sleeping. Even when she is awake, oxygen saturation 89%. Reviewing patient's previous records, seems that about 3 days ago patient had a chest x-ray done, showed possible pneumonia. We will obtain a chest x-ray ventilation/perfusion scan to rule out PE. Patient is currently on 2 L of oxygen. Given patient's worsening symptoms, I will go ahead and order IV antibiotics. Other than the oxygen saturation, patient has had no episodes of hypotension, sepsis not suspected Differential Diagnosis Differential Diagnoses: The differential diagnosis associated with the presentation includes Please see the discussion above Admission/Observation Consideration of admission/observation: Escalation of care including admission/observation considered Please see the discussion above Consult Healthcare Provider Management of the patient was discussed with: Director Erp Please see the discussion above Lab Data MDM Lab Attestation statement: I reviewed the patient's lab results. Please see the discussion above 03/21/23 10:13 03/20/23 20:06 Labs: Lab Results 03/20/23 03/20/23 03/20/23 Range/Units 20:06 20:27 22:26 WBC 12.6 H (4.8-10.8) X10*3/uL RBC 4.78 (4.20-5.50) X10*6/uL Hgb 13.7 (12.0-16.0) g/dl Hct 41.2 (37.0-47.0) % MCV 86.2 (80.0-98.0) fL MCH 28.7 (27.0-33.0) pg MCHC 33.3 (31.0-35.0) g/dl RDW 15.1 (11.0-16.0) % Plt Count 419 H D (160-400) X10*3/uL MPV 9.9 (9.4-12.3) fL Immature Gran % (Auto) 0.6 H (0.0-0.4) % Neut % (Auto) 81.6 H (45-73) % Lymph % (Auto) 11.3 L (20-40) % Placer % (Auto) 6.2 (2-11) % Eos % (Auto) 0.1 (0-4) % Baso % (Auto) 0.2 (0-2) % Lymph # (Auto) 1.4 (1.2-4.9) X10*3/uL Placer # (Auto) 0.8 (0.1-1.2) X10*3/uL Eos # (Auto) 0.0 (0.0-0.4) X10*3/uL Baso # (Auto) 0.0 (0.0-0.2) X10*3/uL Abs Immat Gran (auto) 0.07 H (0.00-0.03) X10*3/uL Absolute Neuts (auto) 10.3 H (2.0-8.3) x10*3/uL Absolute Nucleated RBC 0.000 (0.0-0.012) X10*3/uL Nucleated RBC % (auto) 0.0 (0.0-0.2) /100WBC D-Dimer High Sensitivty NG/ML VBG pH (7.32-7.43) VBG pCO2 mmHg VBG pO2 mmHg VBG HCO3 (22-26) mmol/L VBG O2 Saturation % VBG Base Excess mmol/L Sodium 141 (135-145) mmol/L Potassium 3.5 (3.3-5.1) mmol/L Chloride 106 (96-108) mmol/L Carbon Dioxide 24 (22-29) mmol/L Anion Gap 15 (12-20) BUN 18 H (9-16) mg/dL Creatinine 0.73 (0.5-1.4) mg/dL Estim Creat Clear Calc 82.4 Estimated GFR > 60 Random Glucose 127 H (60-115) mg/dL Lactic Acid 1.8 (0.5-2.0) mmol/L Calcium 9.8 (8.4-10.2) mg/dL Magnesium 1.9 (1.6-2.6) mg/dL Total Bilirubin 0.5 (0.0-1.0) mg/dL AST 20 (5-31) U/L ALT 22 (0-31) U/L Alkaline Phosphatase 92 (39-117) U/L Troponin I High Sens 64.8 H* D 60.9 H* (<3.5-17.0) ng/L C-Reactive Protein 1.66 H (< or = 0.50) mg/dL B-Natriuretic Peptide (<100) pg/mL Total Protein 7.9 (6.5-8.0) g/dL Albumin 4.5 (3.5-5.0) g/dL Urine Color Urine Appearance Urine pH (5.0-9.0) Ur Specific [place] (1.005-1.025) Urine Protein (Neg-Trace) mg/dL Urine Glucose (UA) (Negative) mg/dL Urine Ketones (Negative) mg/dL Urine Blood (Negative) Urine Nitrite (Negative) Ur Leukocyte Esterase (Negative) Urine RBC (0-2) /HPF Urine WBC (0-5) /HPF Ur Squamous Epith Cells (0-2) /HPF Urine Bacteria (None Seen) Hyaline Casts (0-2) /LPF Urine Opiates Screen (Not Detect) Urine Fentanyl Screen (Not Detect) Ur Barbiturates Screen (Not Detect) Ur Phencyclidine Scrn (Not Detect) Ur Amphetamines Screen (Not Detect) U Benzodiazepines Scrn (Not Detect) Urine Cocaine Screen (Not Detect) U Marijuana (THC) Screen (Not Detect) COVID-19 (RHIANNA) Positive A (Negative) COVID-19 Clin Com See Note Influenza Type A (YASH) Negative (Negative) Influenza Type B (YASH) Negative (Negative) Influenza A & B Note See Note 03/20/23 03/21/23 03/21/23 Range/Units 23:10 07:01 10:13 WBC 9.1 (4.8-10.8) X10*3/uL RBC 4.45 (4.20-5.50) X10*6/uL Hgb 12.7 (12.0-16.0) g/dl Hct 38.9 (37.0-47.0) % MCV 87.4 (80.0-98.0) fL MCH 28.5 (27.0-33.0) pg MCHC 32.6 (31.0-35.0) g/dl RDW 15.4 (11.0-16.0) % Plt Count 369 (160-400) X10*3/uL MPV 9.8 (9.4-12.3) fL Immature Gran % (Auto) 0.5 H (0.0-0.4) % Neut % (Auto) 75.4 H (45-73) % Lymph % (Auto) 16.0 L (20-40) % Placer % (Auto) 6.8 (2-11) % Eos % (Auto) 1.0 (0-4) % Baso % (Auto) 0.3 (0-2) % Lymph # (Auto) 1.5 (1.2-4.9) X10*3/uL Placer # (Auto) 0.6 (0.1-1.2) X10*3/uL Eos # (Auto) 0.1 (0.0-0.4) X10*3/uL Baso # (Auto) 0.0 (0.0-0.2) X10*3/uL Abs Immat Gran (auto) 0.05 H (0.00-0.03) X10*3/uL Absolute Neuts (auto) 6.9 (2.0-8.3) x10*3/uL Absolute Nucleated RBC 0.000 (0.0-0.012) X10*3/uL Nucleated RBC % (auto) 0.0 (0.0-0.2) /100WBC D-Dimer High Sensitivty 196 NG/ML VBG pH (7.32-7.43) VBG pCO2 mmHg VBG pO2 mmHg VBG HCO3 (22-26) mmol/L VBG O2 Saturation % VBG Base Excess mmol/L Sodium (135-145) mmol/L Potassium (3.3-5.1) mmol/L Chloride (96-108) mmol/L Carbon Dioxide (22-29) mmol/L Anion Gap (12-20) BUN (9-16) mg/dL Creatinine (0.5-1.4) mg/dL Estim Creat Clear Calc Estimated GFR Random Glucose (60-115) mg/dL Lactic Acid 1.3 (0.5-2.0) mmol/L Calcium (8.4-10.2) mg/dL Magnesium (1.6-2.6) mg/dL Total Bilirubin (0.0-1.0) mg/dL AST (5-31) U/L ALT (0-31) U/L Alkaline Phosphatase (39-117) U/L Troponin I High Sens (<3.5-17.0) ng/L C-Reactive Protein 2.02 H (< or = 0.50) mg/dL B-Natriuretic Peptide 50 (<100) pg/mL Total Protein (6.5-8.0) g/dL Albumin (3.5-5.0) g/dL Urine Color Yellow Urine Appearance Clear Urine pH 6.0 (5.0-9.0) Ur Specific [place] 1.020 (1.005-1.025) Urine Protein Trace (Neg-Trace) mg/dL Urine Glucose (UA) Negative (Negative) mg/dL Urine Ketones 15 (Negative) mg/dL Urine Blood Negative (Negative) Urine Nitrite Negative (Negative) Ur Leukocyte Esterase Negative (Negative) Urine RBC 0-2 (0-2) /HPF Urine WBC 0-5 (0-5) /HPF Ur Squamous Epith Cells 6-10 (0-2) /HPF Urine Bacteria None Seen (None Seen) Hyaline Casts 0-2 (0-2) /LPF Urine Opiates Screen Not Detected (Not Detect) Urine Fentanyl Screen Not Detected (Not Detect) Ur Barbiturates Screen Not Detected (Not Detect) Ur Phencyclidine Scrn Not Detected (Not Detect) Ur Amphetamines Screen Not Detected (Not Detect) U Benzodiazepines Scrn Not Detected (Not Detect) Urine Cocaine Screen Not Detected (Not Detect) U Marijuana (THC) Screen Not Detected (Not Detect) COVID-19 (RHIANNA) (Negative) COVID-19 Clin Com Influenza Type A (YASH) (Negative) Influenza Type B (YASH) (Negative) Influenza A & B Note 03/21/23 Range/Units 10:15 WBC (4.8-10.8) X10*3/uL RBC (4.20-5.50) X10*6/uL Hgb (12.0-16.0) g/dl Hct (37.0-47.0) % MCV (80.0-98.0) fL MCH (27.0-33.0) pg MCHC (31.0-35.0) g/dl RDW (11.0-16.0) % Plt Count (160-400) X10*3/uL MPV (9.4-12.3) fL Immature Gran % (Auto) (0.0-0.4) % Neut % (Auto) (45-73) % Lymph % (Auto) (20-40) % Placer % (Auto) (2-11) % Eos % (Auto) (0-4) % Baso % (Auto) (0-2) % Lymph # (Auto) (1.2-4.9) X10*3/uL Placer # (Auto) (0.1-1.2) X10*3/uL Eos # (Auto) (0.0-0.4) X10*3/uL Baso # (Auto) (0.0-0.2) X10*3/uL Abs Immat Gran (auto) (0.00-0.03) X10*3/uL Absolute Neuts (auto) (2.0-8.3) x10*3/uL Absolute Nucleated RBC (0.0-0.012) X10*3/uL Nucleated RBC % (auto) (0.0-0.2) /100WBC D-Dimer High Sensitivty NG/ML VBG pH 7.44 H (7.32-7.43) VBG pCO2 38 mmHg VBG pO2 56 mmHg VBG HCO3 26 (22-26) mmol/L VBG O2 Saturation 87.0 % VBG Base Excess 2.2 mmol/L Sodium (135-145) mmol/L Potassium (3.3-5.1) mmol/L Chloride (96-108) mmol/L Carbon Dioxide (22-29) mmol/L Anion Gap (12-20) BUN (9-16) mg/dL Creatinine (0.5-1.4) mg/dL Estim Creat Clear Calc Estimated GFR Random Glucose (60-115) mg/dL Lactic Acid (0.5-2.0) mmol/L Calcium (8.4-10.2) mg/dL Magnesium (1.6-2.6) mg/dL Total Bilirubin (0.0-1.0) mg/dL AST (5-31) U/L ALT (0-31) U/L Alkaline Phosphatase (39-117) U/L Troponin I High Sens (<3.5-17.0) ng/L C-Reactive Protein (< or = 0.50) mg/dL B-Natriuretic Peptide (<100) pg/mL Total Protein (6.5-8.0) g/dL Albumin (3.5-5.0) g/dL Urine Color Urine Appearance Urine pH (5.0-9.0) Ur Specific [place] (1.005-1.025) Urine Protein (Neg-Trace) mg/dL Urine Glucose (UA) (Negative) mg/dL Urine Ketones (Negative) mg/dL Urine Blood (Negative) Urine Nitrite (Negative) Ur Leukocyte Esterase (Negative) Urine RBC (0-2) /HPF Urine WBC (0-5) /HPF Ur Squamous Epith Cells (0-2) /HPF Urine Bacteria (None Seen) Hyaline Casts (0-2) /LPF Urine Opiates Screen (Not Detect) Urine Fentanyl Screen (Not Detect) Ur Barbiturates Screen (Not Detect) Ur Phencyclidine Scrn (Not Detect) Ur Amphetamines Screen (Not Detect) U Benzodiazepines Scrn (Not Detect) Urine Cocaine Screen (Not Detect) U Marijuana (THC) Screen (Not Detect) COVID-19 (RHIANNA) (Negative) COVID-19 Clin Com Influenza Type A (YASH) (Negative) Influenza Type B (YASH) (Negative) Influenza A & B Note Independent Interpretation I performed an independent interpretation of an: EKG Interpretation: Sinus tachycardia with short NJ, HR-113, no STEMI, NJ/QRS are within normal limits but QTC is noted to be prolonged -641. Normal sinus rhythm, HR-90, no STEMI, NJ/QRS/QTC is within normal limits. Radiology Impression Discussion of test interpretation with radiology: I have reviewed the radiologist's reading. Radiologist Impression: Please see the discussion above External Record Review External record reviewed: Outpatient record, Prior outpatient labs and Prior outpatient radiology Critical Care Time Critical Care Time Critical Care Time: Yes Total Critical Care Time: 60 Attestation: I personally attest to this time spent taking care of the patient. Discharge Plan Discharge Clinical Impression: Acute psychosis, Lab test positive for detection of COVID-19 virus, Hypoxia Patient Disposition: Still a Patient Prescriptions: No Action epinephrine [EpiPen 2-Hebert] 0.3 mg/0.3 mL auto-injector 0.3 mg IM DIRECTED ezetimibe 10 mg tablet 1 tab PO DAILY loratadine 10 mg Tablet 10 mg PO DAILY@1200 Qty: 30 0RF azithromycin 250 mg tablet See Rx Instructions .ROUTE .COMPLEX Qty: 6 0RF Rx Instructions: take 500 mg today (day 1), then 250 mg for 4 days (days 2-5) benzonatate 100 mg capsule 100 mg PO TID PRN (Reason: cough) Qty: 14 0RF albuterol sulfate 90 mcg/actuation HFA aerosol inhaler 2 puff inhalation Q4-6H PRN (Reason: shortness of breath or wheezing) Qty: 6.7 0RF amoxicillin-pot clavulanate 875-125 mg tablet 1 tab PO BID 7 Days Qty: 14 0RF atorvastatin 10 mg tablet 10 mg PO DAILY trazodone 100 mg tablet 100 mg PO BEDTIME PRN (Reason: Insomnia) lidocaine 5 % adhesive patch,medicated 1 patch topical DAILY PRN (Reason: pain)
--- NOTE | 2023-03-20 19:33 | ECG_ITS ---
Test Reason : Mental Status Change Blood Pressure : / mmHG Vent. Rate : 113 BPM Atrial Rate : 113 BPM P-R Int : 104 ms QRS Dur : 082 ms QT Int : 468 ms P-R-T Axes : 038 051 048 degrees QTc Int : 641 ms Sinus tachycardia with short NE Prolonged QT Abnormal ECG When compared with ECG of 12-SEP-2022 11:50, No significant change was found Referred By: Teri Sommers Electronically Signed By:MELISSA BLANC MD
--- NOTE | 2023-03-20 19:41 | PC.NURSE ---
Isreal Jackson [phone]
[2023-03-20 20:11] LABS: MANUAL DIFF FLAG NO
[2023-03-20 20:12] LABS: Basophils Percent Auto 0.2 % (0-2); Eosinophils Percent Auto 0.1 % (0-4); Hematocrit 41.2 % (37.0-47.0); Hemoglobin 13.7 g/dl (12.0-16.0); Imm Gran Abs Auto 0.07 X10*3/uL (0.00-0.03); Imm Gran Pct Auto 0.6 % (0.0-0.4); Lymphocytes Absolute Auto 1.4 X10*3/uL (1.2-4.9); Lymphocytes Percent Auto 11.3 % (20-40); Mean Corpuscular HGB Conc 33.3 g/dl (31.0-35.0); Mean Corpuscular Hemoglobin 28.7 pg (27.0-33.0); Mean Corpuscular Volume 86.2 fL (80.0-98.0); Mean Platelet Volume 9.9 fL (9.4-12.3); Monocytes Absolute Auto 0.8 X10*3/uL (0.1-1.2); Monocytes Percent Auto 6.2 % (2-11); Neutrophils Absolute Auto 10.3 x10*3/uL (2.0-8.3); Neutrophils Percent Auto 81.6 % (45-73); Platelet Count 419 X10*3/uL (160-400); Red Blood Count 4.78 X10*6/uL (4.20-5.50); Red Cell Distribution Width 15.1 % (11.0-16.0); White Blood Count 12.6 X10*3/uL (4.8-10.8)
[2023-03-20 20:22] LABS: Lactic Acid 1.8 mmol/L (0.5-2.0)
[2023-03-20 20:26] LABS: Alanine Aminotransferase 22 U/L (0-31); Albumin Level 4.5 g/dL (3.5-5.0); Alkaline Phosphatase 92 U/L (39-117); Anion Gap 15 (12-20); Aspartate Amino Transferase 20 U/L (5-31); Bilirubin Total 0.5 mg/dL (0.0-1.0); Blood Urea Nitrogen 18 mg/dL (9-16); Calcium 9.8 mg/dL (8.4-10.2); Carbon Dioxide 24 mmol/L (22-29); Chloride 106 mmol/L (96-108); Creatinine Clr Calc Pharmacy 82.4; Estimated Glomerular Filt Rate > 60; Glucose Random 127 mg/dL (60-115); Magnesium 1.9 mg/dL (1.6-2.6); Potassium 3.5 mmol/L (3.3-5.1); Sodium 141 mmol/L (135-145); Total Protein 7.9 g/dL (6.5-8.0)
[2023-03-20 20:36] LABS: Troponin-I High Sensitivity 64.8 ng/L (<3.5-17.0)
[2023-03-20 20:42] LABS: COVID-19 Test Positive (Negative); IDNOW Serial# 6674DD1D
[2023-03-20 20:50] LABS: IDNOW Serial# 16C4AD1C; Influenza A Negative (Negative); Influenza B2 Negative (Negative)
[2023-03-20] MEDS: Magnesium Sulfate/H2O 2 GM/50 ML PIGGYBACK IV (21:00)
--- NOTE | 2023-03-20 21:07 | PC.NURSE ---
Patient stated she wanted to go home why are we holding her here. Dr. Bowles notified. Patient section 12.
[2023-03-20] MEDS: Acetaminophen 325 MG TABLET 975 MG PO (21:15)
[2023-03-20] MEDS: 0.9 % Sodium Chloride 1,000 ML 999 ML IV (21:15)
--- NOTE | 2023-03-20 21:30 | PC.NURSE ---
Patient having auditory hallucinations having a conversation with someone not in room.
[2023-03-20 22:54] LABS: Troponin-I High Sensitivity 60.9 ng/L (<3.5-17.0)
[2023-03-20 23:11] VITALS: BP 136/67; PULSE 97; RESP 20; TEMP 36.4; O2SAT 93
[2023-03-20 23:19] LABS: Appearance Urine Clear; Color Urine Yellow; Glucose Urine UA Negative (Negative); Leukocyte Esterase Urine Negative (Negative); Nitrite Urine Negative (Negative); Urine Blood Negative (Negative); Urine Ketones 15 mg/dL (Negative); Urine Protein Trace mg/dL (Neg-Trace)
[2023-03-20 23:22] LABS: Bacteria Urine None Seen (None Seen); Hyaline Casts Urine 0-2 /LPF (0-2); RBC Urine 0-2 /HPF (0-2); WBC Urine 0-5 /HPF (0-5)
[2023-03-20 23:26] LABS: Amphetamine Screen Urine Not Detected (Not Detect); Barbiturates, Urine Not Detected (Not Detect); Benzodiazepines Screen Urine Not Detected (Not Detect); Cannabinoid Screen Urine Not Detected (Not Detect); Cocaine Screen Urine Not Detected (Not Detect); Fentanyl, urine Not Detected (Not Detect); Opiate Screen Urine Not Detected (Not Detect); Phencyclidine Screen Urine Not Detected (Not Detect)
--- NOTE | 2023-03-20 23:38 | PC.NURSE ---
This keno writer/runner assumed care of this Pt at 2300. Pt laying on stretcher, appears to be sleeping, awakens with verbal command. Iv fluids running per MAY.
--- NOTE | 2023-03-21 00:14 | ECG_ITS ---
Test Reason : REPEAT Blood Pressure : / mmHG Vent. Rate : 090 BPM Atrial Rate : 090 BPM P-R Int : 118 ms QRS Dur : 086 ms QT Int : 364 ms P-R-T Axes : 056 055 054 degrees QTc Int : 445 ms Normal sinus rhythm Normal ECG When compared with ECG of 20-MAR-2023 20:14, No significant change was found Referred By: Keli Bowles Electronically Signed By:MELISSA BLANC MD
--- NOTE | 2023-03-21 00:45 | PC.NURSE ---
Addendum entered by Peyton Rhodes 03/21/23 07:07: Pt denies SI/HI/AH/VH. Original Note: Pt requesting to leave , Pt on a section 12. Camera placed for elopement risk.
--- NOTE | 2023-03-21 01:53 | PC.NURSE ---
Pt awake standing at side of bed. Pt A&Ox3, unsure of day of month, reports dry cough, and pain to upper back r/t fall at home . Pt given sandwich and PO fluids per request.
[2023-03-21 05:17] VITALS: BP 130/87; PULSE 93; RESP 17; TEMP 36.7; O2SAT 89
--- NOTE | 2023-03-21 05:34 | PC.NURSE ---
Pt SpO2 87% on RA, placed on 3L via NC, improve to 95%. Pt denies SOB, no apparent distress. Plan of care ongoing.
[2023-03-21 06:27] VITALS: BP 136/72; PULSE 76; RESP 15; TEMP 37.2; O2SAT 95
--- NOTE | 2023-03-21 06:41 | PC.NURSE ---
Pt ambulated to BR with slow steady gait, reports increase pain to left upper back while coughing. Dr. Ledesma made aware.
[2023-03-21 07:24] LABS: Lactic Acid 1.3 mmol/L (0.5-2.0)
[2023-03-21 07:30] LABS: C Reactive Protein 1.66 mg/dL (< or = 0.50)
[2023-03-21] MEDS: cefTRIAXone sodium 1 GM in 0.9 % Sodium Chloride 50 ML IV (07:52)
--- NOTE | 2023-03-21 07:54 | PC.NURSE ---
patient awake, able to answer questions appropriately. asking if she was out of it yesterday stating that she is feeling much better today. antibiotics infusing, patient eating breakfast. video monitor remains in place
[2023-03-21 08:43] VITALS: BP 132/53; PULSE 71; RESP 20; TEMP 36.7; O2SAT 95
[2023-03-21] MEDS: Acetaminophen 325 MG TABLET 975 MG PO (09:34)
[2023-03-21] MEDS: Azithromycin 500 MG in 0.9 % Sodium Chloride 250 ML 125 MG IV (09:34)
[2023-03-21 10:16] VITALS: PULSE 79; RESP 21; O2SAT 90
[2023-03-21] MEDS: Albuterol Sulfate 90 MCG 8 GM INHALER 2 PUFF INHALE (10:16)
[2023-03-21 10:17] LABS: MANUAL DIFF FLAG NO
[2023-03-21 10:18] LABS: Basophils Percent Auto 0.3 % (0-2); Eosinophils Absolute Auto 0.1 X10*3/uL (0.0-0.4); Hematocrit 38.9 % (37.0-47.0); Hemoglobin 12.7 g/dl (12.0-16.0); Imm Gran Abs Auto 0.05 X10*3/uL (0.00-0.03); Imm Gran Pct Auto 0.5 % (0.0-0.4); Lymphocytes Absolute Auto 1.5 X10*3/uL (1.2-4.9); Mean Corpuscular HGB Conc 32.6 g/dl (31.0-35.0); Mean Corpuscular Hemoglobin 28.5 pg (27.0-33.0); Mean Corpuscular Volume 87.4 fL (80.0-98.0); Mean Platelet Volume 9.8 fL (9.4-12.3); Monocytes Absolute Auto 0.6 X10*3/uL (0.1-1.2); Monocytes Percent Auto 6.8 % (2-11); Neutrophils Absolute Auto 6.9 x10*3/uL (2.0-8.3); Neutrophils Percent Auto 75.4 % (45-73); Platelet Count 369 X10*3/uL (160-400); Red Blood Count 4.45 X10*6/uL (4.20-5.50); Red Cell Distribution Width 15.4 % (11.0-16.0); White Blood Count 9.1 X10*3/uL (4.8-10.8)
[2023-03-21 10:23] LABS: Venous Blood Gas Refer to POC result
[2023-03-21 10:23] LABS: VBG Base Excess 2.2 mmol/L; VBG HCO3 26 mmol/L (22-26); VBG pCO2 38 mmHg; VBG pH 7.44 (7.32-7.43); VBG pO2 56 mmHg
[2023-03-21 10:29] LABS: C Reactive Protein 2.02 mg/dL (< or = 0.50)
[2023-03-21 10:31] LABS: D Dimer High Sensitivity 196 NG/ML
[2023-03-21 10:38] LABS: B Type Natriuretic Peptide 50 pg/mL (<100)
[2023-03-21] MEDS: Ketorolac Tromethamine 15 MG/ML VIAL IVPUSH (11:49)
--- NOTE | 2023-03-21 11:58 | PC.NURSE ---
patient medically cleared and meeting with care team at this time.
[2023-03-21 13:22] VITALS: BP 118/53; PULSE 79; RESP 20; TEMP 36.7; O2SAT 91
--- NOTE | 2023-03-21 14:06 | MHC.CARE ---
CARE Team received a call from [facility] at [facility] that case was screened in. The assigned worker will be Rohit Hernadez [phone] ext [phone] and engagement liaisonsupervisor park workers is Sondra Lombardi who will be following up on status of Pt.
--- NOTE | 2023-03-21 16:20 | PHA.MEDREC ---
Addendum entered by Lucretia Busch RPh 03/21/23 16:22: patient was never able to start abx that were prescribed on 03/18 Original Note: Pharmacy Consult ? Medication Reconciliation Pharmacy has completed the medication reconciliation.patient confirmed medications based off claim history. Sunita Price CPhT
--- NOTE | 2023-03-21 16:53 | PC.NURSE ---
plan for patient to become inpatient bedsearch. agreeable to change into hospital attire, kept cell phone, ID, debit cards, and cell phone strategic accounts manager in her room. purse, wallet, jacket, shoes placed into locker 8 in pod.
--- NOTE | 2023-03-21 17:33 | PM.PSYCN ---
History of Present Illness Date of Service: 03/21/2023 Chief Complaint: ams Reason for Consult: psychosis, paranoid delusions Discussed with referring provider: Yes Sources of Information: patient interviewed, chart reviewed and crisis/core team assessment reviewed HPI Narrative: Mrs. Jackson is a 67 year-old woman who was brought in by police. Initially no report given to hospital staff from police as to reason to bring pt here. Pt presented with auditory hallucinations reporting multiple voices talking to her, not trusting her thinks he may harm her and was not letting her drive. Apparently, was not aware pt was here in hospital and brought by police. Later it was confirmed that she was walking in PJ in middle of night and appear psychotic. In the ED, pt positive for covid. Mrs. Jackson is know to [facility] through previous episode of psychosis and delusions which at the time was her first psychotic episode. She had been seen by neurology, MRI was completed. DEMARCUS negative. RPR neg. Unclear if LP was ever completed. No record of it here at [facility]. Per pt has also presented with over spending behaviors, irritability. has reported he is not able to care for her. In the ED, pt presents as guarded. She reports she thinks someone may be trying to harm her here in the hospital. She reports she is upset with her because he does not let her drive. She reports hearing voices constantly these voices being overwhelming to her. Past Psychiatric History: Brief outpatient therapy and use of Zoloft around the time she started her menopause she was given Zoloft that she took very briefly and stopped because it made her very flat emotionally PMFSH Medical History Vulvodynia Adjustment disorder with mixed anxiety and depressed mood Other screening mammogram IBS (irritable bowel syndrome) Depression GERD (gastroesophageal reflux disease) Hypercholesterolemia Lung nodule Proctalgia fugax Pelvic floor dysfunction Anal sphincter incompetence Gallstones Chronic bilateral low back pain without sciatica Acute allergic rhinitis Surgical History Hx of colonoscopy Hx of tonsillectomy Family History: Unknown Social History: Kaycee was born and raised in [place]. She states that both her parents are . She had a brother who in 2018 and that was difficult for her. She came to this area when she was 39. She had an aunt who lived in [place] and after that she liked the area and decided to stay. She then met her and they got fairly quickly. 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 She currently lives with her Diagnostics Vital Signs (24Hr): Vital Signs - 24 hr 03/20/23 19:30 03/20/23 23:11 03/21/23 05:17 Temperature 98.1 F 97.5 F 98.0 F Pulse Rate 120 H 97 93 Respiratory Rate 20 20 17 Blood Pressure 140/69 H 136/67 130/87 Pulse Oximetry 92 93 89 L Oxygen Delivery Method Room Air Room Air Room Air Oxygen Flow Rate 03/21/23 06:27 03/21/23 08:43 03/21/23 10:16 Temperature 98.9 F 98.1 F Pulse Rate 76 71 79 Respiratory Rate 15 20 21 H Blood Pressure 136/72 132/53 L Pulse Oximetry 95 95 Oxygen Delivery Method Nasal Cannula Nasal Cannula Oxygen Flow Rate 3 3 03/21/23 13:22 Temperature 98.1 F Pulse Rate 79 Respiratory Rate 20 Blood Pressure 118/53 L Pulse Oximetry 91 L Oxygen Delivery Method Room Air Oxygen Flow Rate BMI result Body Mass Index 38.2 Labs 03/21/23 10:13 03/20/23 20:06 Labs: Laboratory Results - last 48 hr 03/20/23 03/20/23 03/20/23 20:06 20:27 22:26 WBC 12.6 H RBC 4.78 Hgb 13.7 Hct 41.2 MCV 86.2 MCH 28.7 MCHC 33.3 RDW 15.1 Plt Count 419 H D MPV 9.9 Immature Gran % (Auto) 0.6 H Neut % (Auto) 81.6 H Lymph % (Auto) 11.3 L [place] % (Auto) 6.2 Eos % (Auto) 0.1 Baso % (Auto) 0.2 Lymph # (Auto) 1.4 Throckmorton # (Auto) 0.8 Eos # (Auto) 0.0 Baso # (Auto) 0.0 Abs Immat Gran (auto) 0.07 H Absolute Neuts (auto) 10.3 H Absolute Nucleated RBC 0.000 Nucleated RBC % (auto) 0.0 D-Dimer High Sensitivty VBG pH VBG pCO2 VBG pO2 VBG HCO3 VBG O2 Saturation VBG Base Excess Sodium 141 Potassium 3.5 Chloride 106 Carbon Dioxide 24 Anion Gap 15 BUN 18 H Creatinine 0.73 Estim Creat Clear Calc 82.4 Estimated GFR > 60 Random Glucose 127 H Lactic Acid 1.8 Calcium 9.8 Magnesium 1.9 Total Bilirubin 0.5 AST 20 ALT 22 Alkaline Phosphatase 92 Troponin I High Sens 64.8 H* D 60.9 H* C-Reactive Protein 1.66 H B-Natriuretic Peptide Total Protein 7.9 Albumin 4.5 Urine Color Urine Appearance Urine pH Ur Specific [place] Urine Protein Urine Glucose (UA) Urine Ketones Urine Blood Urine Nitrite Ur Leukocyte Esterase Urine RBC Urine WBC Ur Squamous Epith Cells Urine Bacteria Hyaline Casts Urine Opiates Screen Urine Fentanyl Screen Ur Barbiturates Screen Ur Phencyclidine Scrn Ur Amphetamines Screen U Benzodiazepines Scrn Urine Cocaine Screen U Marijuana (THC) Screen COVID-19 (RHIANNA) Positive A COVID-19 Clin Com See Note Influenza Type A (YASH) Negative Influenza Type B (YASH) Negative Influenza A & B Note See Note 03/20/23 03/21/23 03/21/23 23:10 07:01 10:13 WBC 9.1 RBC 4.45 Hgb 12.7 Hct 38.9 MCV 87.4 MCH 28.5 MCHC 32.6 RDW 15.4 Plt Count 369 MPV 9.8 Immature Gran % (Auto) 0.5 H Neut % (Auto) 75.4 H Lymph % (Auto) 16.0 L [place] % (Auto) 6.8 Eos % (Auto) 1.0 Baso % (Auto) 0.3 Lymph # (Auto) 1.5 [place] # (Auto) 0.6 Eos # (Auto) 0.1 Baso # (Auto) 0.0 Abs Immat Gran (auto) 0.05 H Absolute Neuts (auto) 6.9 Absolute Nucleated RBC 0.000 Nucleated RBC % (auto) 0.0 D-Dimer High Sensitivty 196 VBG pH VBG pCO2 VBG pO2 VBG HCO3 VBG O2 Saturation VBG Base Excess Sodium Potassium Chloride Carbon Dioxide Anion Gap BUN Creatinine Estim Creat Clear Calc Estimated GFR Random Glucose Lactic Acid 1.3 Calcium Magnesium Total Bilirubin AST ALT Alkaline Phosphatase Troponin I High Sens C-Reactive Protein 2.02 H B-Natriuretic Peptide 50 Total Protein Albumin Urine Color Yellow Urine Appearance Clear Urine pH 6.0 Ur Specific [place] 1.020 Urine Protein Trace Urine Glucose (UA) Negative Urine Ketones 15 Urine Blood Negative Urine Nitrite Negative Ur Leukocyte Esterase Negative Urine RBC 0-2 Urine WBC 0-5 Ur Squamous Epith Cells 6-10 Urine Bacteria None Seen Hyaline Casts 0-2 Urine Opiates Screen Not Detected Urine Fentanyl Screen Not Detected Ur Barbiturates Screen Not Detected Ur Phencyclidine Scrn Not Detected Ur Amphetamines Screen Not Detected U Benzodiazepines Scrn Not Detected Urine Cocaine Screen Not Detected U Marijuana (THC) Screen Not Detected COVID-19 (RHIANNA) COVID-19 Clin Com Influenza Type A (YASH) Influenza Type B (YASH) Influenza A & B Note 03/21/23 10:15 WBC RBC Hgb Hct MCV MCH MCHC RDW Plt Count MPV Immature Gran % (Auto) Neut % (Auto) Lymph % (Auto) [place] % (Auto) Eos % (Auto) Baso % (Auto) Lymph # (Auto) [place] # (Auto) Eos # (Auto) Baso # (Auto) Abs Immat Gran (auto) Absolute Neuts (auto) Absolute Nucleated RBC Nucleated RBC % (auto) D-Dimer High Sensitivty VBG pH 7.44 H VBG pCO2 38 VBG pO2 56 VBG HCO3 26 VBG O2 Saturation 87.0 VBG Base Excess 2.2 Sodium Potassium Chloride Carbon Dioxide Anion Gap BUN Creatinine Estim Creat Clear Calc Estimated GFR Random Glucose Lactic Acid Calcium Magnesium Total Bilirubin AST ALT Alkaline Phosphatase Troponin I High Sens C-Reactive Protein B-Natriuretic Peptide Total Protein Albumin Urine Color Urine Appearance Urine pH Ur Specific [place] Urine Protein Urine Glucose (UA) Urine Ketones Urine Blood Urine Nitrite Ur Leukocyte Esterase Urine RBC Urine WBC Ur Squamous Epith Cells Urine Bacteria Hyaline Casts Urine Opiates Screen Urine Fentanyl Screen Ur Barbiturates Screen Ur Phencyclidine Scrn Ur Amphetamines Screen U Benzodiazepines Scrn Urine Cocaine Screen U Marijuana (THC) Screen COVID-19 (RHIANNA) COVID-19 Clin Com Influenza Type A (YASH) Influenza Type B (YASH) Influenza A & B Note Imaging Radiology Impressions: ITS Impressions Head CT 03/20/23 19:54 IMPRESSION: No acute intracranial abnormality including hemorrhage, mass effect, hydrocephalus, or acute territorial edematous infarction. Chest X-Ray 03/21/23 06:50 IMPRESSION: Improved aeration at the right lung base. Chest CT 03/21/23 08:33 IMPRESSION: * Moderate pulmonary emphysema. * Lungs are hypoinflated and there are linear and curvilinear opacities of atelectasis within lower lung zones. No overt consolidation or pleural effusion. No evidence of viral pneumonitis. * Nonspecific 0.7 cm subpleural nodule of the posteromedial right lower lobe. Chest CT follow-up is recommended. Mental Status Exam Mental Status Exam Narrative: Appearance: wearing hospital gown, in bed, covered with blanket, disheveled, in NAD Behavior: suspicious Psychomotor: no agitation or retardation noted. Speech: clear, regular rate/rhythm/volume, spontaneous TP: disorganized TC:paranoid delusions Mood: not well Affect: guarded, suspicious SI: denies HI: denies AV/VH: + AH Delusions: paranoid delusions Memory/cog: alert, not oriented to situation Medications Allergies Allergies Allergy/AdvReac Type Severity Reaction Status Date / Time cat dander Allergy Unknown Unknown Verified 03/20/23 19:39 ciprofloxacin Allergy Unknown gastritis Verified 03/20/23 19:39 gabapentin Allergy Unknown Anaphylaxis Verified 03/20/23 19:39 hornet venom [HORNETS] Allergy Unknown ANAPHYLACTI Verified 03/20/23 19:39 C latex Allergy Unknown Rash Verified 03/20/23 19:39 metronidazole Allergy Unknown GI distress Verified 03/20/23 19:39 pregabalin [From Lyrica] Allergy Unknown Angioedema Verified 03/20/23 19:39 sorbitol [SORBITOL] Allergy Unknown RASH Verified 03/20/23 19:39 sulfamethoxazole Allergy Unknown RASH Verified 03/20/23 19:39 [From BACTRIM] sulfasalazine Allergy Unknown Rash Verified 03/20/23 19:39 trimethoprim [From BACTRIM] Allergy Unknown RASH Verified 03/20/23 19:39 iodine Allergy Hives Verified 03/20/23 19:39 medrol dose pack Allergy Severe face Uncoded 10/16/21 15:50 swelling DUST Allergy Unknown SINUS Uncoded 10/16/21 15:50 INFECTION bandaids Allergy Unknown Uncoded 10/16/21 15:50 contrast Allergy rash on Uncoded 10/16/21 15:50 face betamethasone dipropriate AdvReac Severe rash Uncoded 10/16/21 15:50 Assessment & Plan Assessment & Plan (1) Acute psychosis: Status: Acute Code(s): F23 - Brief psychotic disorder Plan Mrs. Jackson is a 67 year-old woman with one prior episode of psychosis last year. At the time, pt was seen by neurology, MRI, DEMARCUS, RPR unremarkable along with cbc/cmp. She does have lung nodule that chest CT today showed with recommendation to follow up 3-6month. May consider serum paraneoplastic panel- especially MILLER-1 anti-hu small cell lung carcinoma. PLAN 1. Admission to psych unit for further assessment, stabilization and containment 2. start risperidone 1mg PO BID Total time managing care of this patient today ____ minutes.
[2023-03-22 00:04] VITALS: BP 113/47; PULSE 85; RESP 16; O2SAT 92
--- NOTE | 2023-03-22 02:30 | MHC.EDTECH ---
Brought PT a commode due to covid precautions, cannot leave room. PT used commode 1x urine.
[2023-03-22] MEDS: oxyCODONE HCl Immed Release 5 MG TABLET PO ×2 (03:43→21:55)
[2023-03-22 06:09] VITALS: BP 149/65; PULSE 77; RESP 16; TEMP 36.8; O2SAT 93
[2023-03-22] MEDS: Lidocaine 4 % Patch ADH..PATCH 1 PATCH TRANSDERMA ×2 (11:19→17:05)
[2023-03-22] MEDS: Loratadine 10 MG TABLET PO (11:19)
[2023-03-22] MEDS: Acetaminophen 325 MG TABLET 975 MG PO (11:19)
--- NOTE | 2023-03-22 11:33 | PC.NURSE ---
patient awake/alert, ambulating in room with steady gait- camera for patient safety- at bedside, pt c/o back pain, pt medicated with tylenol and lido patch per order, bed changed from stretcher to inpt hosptial bed for added comfort, call lozoya within reach, will continue to monitor
--- NOTE | 2023-03-22 13:49 | MHC.CARE ---
RAD Team [place], unfortunately no beds available. Faxed referral to [facility] waitlist. RAD Team will continue bedsearch tomorrow (03/23) if deemed appropriate
--- NOTE | 2023-03-22 14:30 | MHC.EDTECH ---
Brought commode to PT'S room due to covid precautions. PT used commode 1x.
[2023-03-22 14:45] VITALS: BP 134/70; PULSE 68; RESP 16; TEMP 36.6; O2SAT 91
--- NOTE | 2023-03-22 15:04 | PC.NURSE ---
subhash worley notified spo2 91% at rest. rechecked pulse ox after stood/pivoted to commode- 87%. mild garg. no distress. covid precautions. per subhash worley place on 2L nc, ok to stay without monitoring. takling full sentences.
[2023-03-22 15:13] VITALS: O2SAT 87
--- NOTE | 2023-03-22 15:48 | MHC.EDTECH ---
PT wanted food and per Dr. holland, the pt was given adele hardeep, turkey sandwich, garry crackers, and saltine crackers
[2023-03-22 15:51] VITALS: BP 165/88; PULSE 62; RESP 16; TEMP 36.7; O2SAT 93
[2023-03-22] MEDS: Benzonatate 100 MG CAPSULE PO (17:05)
--- NOTE | 2023-03-22 17:39 | MHC.EDTECH ---
PT ATE DINNER THAT WAS BROUGHT IN BY HER .
--- NOTE | 2023-03-22 17:46 | PC.NURSE ---
Assumed care of pt at 1500. Pt is A&Ox3. Pt is steady ambulating in room, camera in room for safety. Pt LS dim on room air saturating 93%, dry cough noted Tessalon faye given with good effect. Pt is endorsing left back pain, pt states her lidocaine patch was removed by accident, lidocaine patch replaced with good effect. Per report pt has belongings locked up in locker #8. All safety measures in place, vital signs stable.
[2023-03-22 19:40] VITALS: BP 115/42; PULSE 62; RESP 16; TEMP 36.9; O2SAT 93
--- NOTE | 2023-03-22 19:52 | PC.NURSE ---
charger operator made aware of patient's request for pain medication and something to assist with cough. RN spoke with MD Padgett and new PRN orders obtained. OF RN to be made aware
[2023-03-22] MEDS: guaiFEN/Codeine SF 200/20/10ML 10 ML LIQUID PO (21:04)
[2023-03-22] MEDS: traZODone HCL 100 MG TABLET PO (21:45)
[2023-03-23] MEDS: Throat Lozenge, Medicated LOZENGE 1 LOZENGE MUCOUS MEM ×2 (01:08→07:26)
[2023-03-23] MEDS: Benzonatate 100 MG CAPSULE PO ×3 (01:08→16:15)
--- NOTE | 2023-03-23 02:24 | PC.NURSE ---
Patient requesting medication for cough and back pain. Orders obtained , Oxycodone 5 mg po administered for pain, Cepacol lozenge given for cough/throat pain as ordered . Having good effect. Patient sleeping at this time. Call lozoya within reach. Safety precautions in place, telesitter at bedside.
[2023-03-23 06:00] VITALS: BP 159/89; PULSE 82; RESP 15; TEMP 37.2; O2SAT 90
[2023-03-23] MEDS: guaiFEN/Codeine SF 200/20/10ML 10 ML LIQUID PO ×3 (06:12→16:15)
[2023-03-23] MEDS: Ezetimibe 10 MG TABLET PO (07:26)
[2023-03-23] MEDS: Atorvastatin Calcium 10 MG TABLET PO (07:26)
--- NOTE | 2023-03-23 09:17 | PC.NURSE ---
Assumed care @ 0700. Pt found to be smoking cigarette in room. Pt instructed she is not allowed to smoke in a hospital, to which she replied well I can in [place] so I just assumed. Pt willingly gave this RN the pack of cigarettes from her belongings. Pt calm, cooperative with staff. Demanding at times. Med and meal compliant. Ambulating independently in room. No complaints offered. Cigarettes removed from pt room and placed in dresser used for pt belongings in room 12 of overflow unit.
[2023-03-23] MEDS: Loratadine 10 MG TABLET PO (12:55)
--- NOTE | 2023-03-23 13:21 | PC.NURSE ---
Pt and pt requesting the remainder of pt's belongings be brought from security. Security contacted, nursing financial supervisor contacted.
[2023-03-23 14:00] VITALS: BP 144/65; PULSE 82; RESP 20; TEMP 36.6; O2SAT 92
--- NOTE | 2023-03-23 15:45 | PC.NURSE ---
This RN assumed care of patient at 1500 today. Patient is noted to not be changed into hospital attire and personal belongings are in room. This RN was told in report that patient was smoking in room earlier today. This RN told patient that we would need to lock her belongings up and change into hospital attire, patient originally not in agreement. This RN asked if it would be okay to check her belongings for safety, patient was in agreement with this. 2 lighters, matches, and a sharp comb was found. security was called to assist in changing patient over and securing patients personal belongings. Patient was cooperative with plug overwrap machine tender, allowed to keep her phone, otherwise all belonging locked up and placed in the closet in the POD per security. charge account identification clerk aware
--- NOTE | 2023-03-23 16:21 | PC.NURSE ---
care team made aware of need for updated section 12
--- NOTE | 2023-03-23 16:43 | MHC.CARE ---
RAD Team conducted [place] clau bed [place], unfortunately no beds available. Faxed referral to [facility] waitlist. RAD Team will continue bedsearch tomorrow (03/24) if deemed appropriate
[2023-03-23 19:52] VITALS: BP 136/70; PULSE 80; RESP 16; TEMP 37; O2SAT 90
[2023-03-23] MEDS: Lidocaine 4 % Patch ADH..PATCH 1 PATCH TRANSDERMA (20:27)
[2023-03-23] MEDS: traZODone HCL 100 MG TABLET PO (20:34)
[2023-03-23] MEDS: Albuterol Sulfate 90 MCG 8 GM INHALER 2 PUFF INHALE (20:36)
--- NOTE | 2023-03-23 20:52 | MHC.EDTECH ---
Patient had grham crackers and ham sandwich for snack .
--- NOTE | 2023-03-23 22:02 | PC.NURSE ---
Assumed care of patient 19:15. Pt is seen this evening in ED overflow bed 4. Pt A&Ox3 to person and place, seems intermittently vaguely aware of time and situation. Here on section 12 awaiting clau-psych bed per chart review. Pt remains on airborne precautions for +covid. Pt require frequent redirection back to her room as she often wanders into the unit without a mask. Pt re-educated on use of call lozoya to make needs known. Pt ambulates steadily in room. In room camera remains in place for patient safety. Spo2 noted to be 90% on RA on evening vitals. Pt denies sob and states, my breathing feels perfect . Prn inhaler given per pt request as well as lidocaine patch applied for indicated left posterior mid-upper back pain pt states Is from when I was coughing back in March in [place] my rib came out . +Effect reported with both interventions. No wheezing or adventitious sounds noted. Pt is communicating in full sentences and ambulating without issue. Breathing is even and unlabored without distress, both at rest and with activity. Covering provider Carlos Mar notified, with written order to re-check spo2 later in evening. Recheck showed 92%. Tolerating regular diet. Denies chest pain and n/v. Pt denies acute complaints. Will continue to monitor for remainder of keno writer / runner's scheduled care.
[2023-03-23 22:10] VITALS: PULSE 84; O2SAT 92
--- NOTE | 2023-03-23 22:30 | PC.NURSE ---
Pt continues to exit room unmasked into unit for needs instead of ringing call bed. This time, pt demanding a phone national service officer for stated 30% battery remaining. Pt educated that for safety reasons (she is section 12 and was found being unsafe and smoking in her room earlier today per report and notes review), she cannot have a phone national service officer, however, pt was offered for nursing staff to charge her phone. While trying to explain this alternative pt became argumentative, talking over real estate underwriter stating, I can just call 911 then and tell them on you . Steam Fitter Supervisor Maintenance redirected and again explained that ED trust accounts supervisor has offered to take her phone and charge it with their universal national service officer. Pt agreeable and re-educated on using call lozoya and keeping door closed due to covid/airborne precautions.
--- NOTE | 2023-03-23 23:26 | PC.NURSE ---
Handoff report given to oncoming ED RN at 23:15.
--- NOTE | 2023-03-24 01:25 | PC.NURSE ---
Assmed care of pt at 2315. Pt out of room during report upset d/t her cell phone dying. Pt informed by previous RN that the charge natividad would pick it up and bring to the main ED to charge. Pt upset but went in room and closed door. supervisor carbon paper coating picked up phone, pt thankful in bed watching tv. no distress denies pain at this time. Camera in place to ensure safety. Plan of care ongoing.
--- NOTE | 2023-03-24 05:52 | PC.NURSE ---
Pt awake and asked for her phone which was brought to her from the main ED. Pt reported to this RN that she called her insurance agent and stated she was being held against her will. Despite this RNs attempt to explain to pt she still did not understand and said they were coming. This RN explained that if and when they come in the care team could explain what is going on. Pt in room, door closed, camera in place for safety.Plan of care ongoing.
[2023-03-24 07:50] VITALS: BP 119/58; PULSE 105; RESP 18; O2SAT 94
[2023-03-24] MEDS: Atorvastatin Calcium 10 MG TABLET PO (08:05)
[2023-03-24] MEDS: Ezetimibe 10 MG TABLET PO (08:05)
--- NOTE | 2023-03-24 11:20 | PC.NURSE ---
Black Suitcase stored in pod closet where washer and dryer are.
[2023-03-24] MEDS: Loratadine 10 MG TABLET PO (11:47)
--- NOTE | 2023-03-24 12:40 | MHC.CARE ---
Rad Team completed a statewide clau bed search (see bed search sheet for details). There are no clau beds available and no d/c's expected today. Bed search will resume tomorrow if needed.
[2023-03-24] MEDS: Lidocaine 4 % Patch ADH..PATCH 1 PATCH TRANSDERMA (13:07)
[2023-03-24] MEDS: risperiDONE 1 MG TABLET PO ×2 (14:35→21:00)
[2023-03-24 15:06] VITALS: BP 165/69; PULSE 80; RESP 18; O2SAT 95
[2023-03-24 19:58] VITALS: BP 138/66; PULSE 82; RESP 16; TEMP 36.7; O2SAT 91
--- NOTE | 2023-03-24 21:01 | PC.NURSE ---
Pt sitting up watching TV and eating crackers. Pt medicated per mar. Plan of care ongoing.
[2023-03-25] MEDS: guaiFEN/Codeine SF 200/20/10ML 10 ML LIQUID PO (00:30)
[2023-03-25 01:51] VITALS: RESP 16
[2023-03-25 06:00] VITALS: BP 122/58; PULSE 85; RESP 16; TEMP 36.8; O2SAT 91
--- NOTE | 2023-03-25 06:47 | PC.NURSE ---
Assumed care of patient at 23:30. Continues in ED overflow. Continues with +covid and airborne precautions. Pt is A&Ox3. Napped intermittently during shift, alternated napping with watching tv quietly and occassionally ambulating in her room, steady and without issues independently in her room. Given prn Robitussin per request for cough with +effect. Breathing is even and unlabored without distress. Denies acute complaints. Denies pain. Tolerating snacks. AM spo2 91%. Pt denies sob. No sob. Offered prn inhaler which pt refused, stated I am fine . Handoff report given to oncfrandy RN 06:45.
[2023-03-25] MEDS: Atorvastatin Calcium 10 MG TABLET PO (07:31)
[2023-03-25] MEDS: risperiDONE 1 MG TABLET PO (07:31)
[2023-03-25] MEDS: Ezetimibe 10 MG TABLET PO (07:31)
--- NOTE | 2023-03-25 08:55 | MHC.EDTECH ---
PT ate 100% of her breakfast. PT is wondering when the care team will be coming to see her. PT is independently mobile in her room. PT urinated 1x this morning. Emptied commode.
--- NOTE | 2023-03-25 09:26 | MHC.CARE ---
RAD Team conducted statewide bedsearch- unfortunately no beds available statewide due to pt being covid+, RAD Team will continue bedsearch tomorrow (03/26) if deemed necessary
--- NOTE | 2023-03-25 10:28 | PC.NURSE ---
Addendum entered by Mariella Vincent 03/25/23 10:30: no resp distress. breathing/talking well Original Note: pt ambulating in room, video monitor confirmed on. daily care facilitated- staff set her up to wash herself up- pt washed herself up well w/o needing assistance, independent. subhash freeman states ok for her to use her personal cell phone. CARE team came to bedside to chat w pt. no si/hi/delusional statements made. no attempts to wander out of room. calm, coop.
--- NOTE | 2023-03-25 12:00 | MHC.EDTECH ---
CARE TEAM AND BRICK BAKER TALKING TO PATIENT. pts also came for a visit.
--- NOTE | 2023-03-25 12:15 | MHC.EDTECH ---
PT ATE 100% OF HER LUNCH AND 240CC OF FLUIDS.
--- NOTE | 2023-03-25 13:00 | PC.NURSE ---
no resp distress. talking and walking well. pt ate lunch. camera on. covid precautions remain in place.
--- NOTE | 2023-03-25 13:44 | P.CNPS_ITS ---
History of Present Illness Date of Service: 03/25/2023 Chief Complaint: ams Reason for Consult: psychosis Discussed with referring provider: Yes Sources of Information: patient interviewed, chart reviewed and crisis/core team assessment reviewed HPI Narrative: Interim Hx: Pt presents as calmer. She reports she was hearing voices of [place] people. She reports she does not hear voices anymore. She reports she was also not feeling well. She denies SI/HI. No overt delusional content. She reports she took risperidone but felt dizzy afterwards and wonders if she can take lower dose. She would like to go home. She reports has Parkinson's and thinks his memory is declining. She reports she sees psychiatric prescriber and therapist, clinician from care team looking for info to coordinate appointments. Past Psychiatric History: Brief outpatient therapy and use of Zoloft around the time she started her menopause she was given Zoloft that she took very briefly and stopped because it made her very flat emotionally PMFSH Medical History Vulvodynia Adjustment disorder with mixed anxiety and depressed mood Other screening mammogram IBS (irritable bowel syndrome) Depression GERD (gastroesophageal reflux disease) Hypercholesterolemia Lung nodule Proctalgia fugax Pelvic floor dysfunction Anal sphincter incompetence Gallstones Chronic bilateral low back pain without sciatica Acute allergic rhinitis Surgical History Hx of colonoscopy Hx of tonsillectomy Family History: Unknown Social History: Kaycee was born and raised in [facility]. She states that both her parents are . She had a brother who in 2018 and that was difficult for her. She came to this area when she was 39. She had an aunt who lived in [place] and after that she liked the area and decided to stay. She then met her and they got fairly quickly. 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 She currently lives with her Diagnostics Vital Signs (24Hr): Vital Signs - 24 hr 03/24/23 15:06 03/24/23 19:58 03/25/23 01:51 Temperature 98.0 F Pulse Rate 80 82 Respiratory Rate 18 16 16 Blood Pressure 165/69 H 138/66 Pulse Oximetry 95 91 L Oxygen Delivery Method Room Air Room Air 03/25/23 06:00 Temperature 98.3 F Pulse Rate 85 Respiratory Rate 16 Blood Pressure 122/58 L Pulse Oximetry 91 L Oxygen Delivery Method Room Air BMI result Body Mass Index 38.2 Labs 03/21/23 10:13 03/20/23 20:06 Imaging Radiology Impressions: ITS Impressions Head CT 03/20/23 19:54 IMPRESSION: No acute intracranial abnormality including hemorrhage, mass effect, hydrocephalus, or acute territorial edematous infarction. Chest X-Ray 03/21/23 06:50 IMPRESSION: Improved aeration at the right lung base. Chest CT 03/21/23 08:33 IMPRESSION: * Moderate pulmonary emphysema. * Lungs are hypoinflated and there are linear and curvilinear opacities of atelectasis within lower lung zones. No overt consolidation or pleural effusion. No evidence of viral pneumonitis. * Nonspecific 0.7 cm subpleural nodule of the posteromedial right lower lobe. Chest CT follow-up is recommended. Mental Status Exam Mental Status Exam Narrative: Appearance: wearing hospital gown, in bed, covered with blanket, disheveled, in NAD Behavior: suspicious Psychomotor: no agitation or retardation noted. Speech: clear, regular rate/rhythm/volume, spontaneous TP: more linear and coherent TC:no overt delusions or psychosis, conversation more based on reality Mood: better Affect: brighter, non labile SI: denies HI: denies AV/VH: none Delusions: no overt Memory/cog: alert, not oriented x 3. some confusion about situation...does not think police brought her here Medications Medications Current Medications Albuterol Sulfate (Albuterol Sulfate 90 Mcg 8 Gm Inhaler) 2 puff INHALE Q4H PRN PRN Reason: shortness of breath or wheezin Last Admin: 03/23/23 20:36 Dose: 2 puff Atorvastatin Calcium (Atorvastatin Calcium 10 Mg Tablet) 10 mg PO DAILY ARRON Last Admin: 03/25/23 07:31 Dose: 10 mg Benzocaine (Throat Lozenge, Medicated Lozenge) 1 lozenge MUCOUS MEM RQ6H PRN PRN Reason: thoat pain Last Admin: 03/23/23 07:26 Dose: 1 lozenge Benzonatate (Benzonatate 100 Mg Capsule) 100 mg PO TID PRN PRN Reason: cough Last Admin: 03/23/23 16:15 Dose: 100 mg Ezetimibe (Ezetimibe 10 Mg Tablet) 10 mg PO DAILY [facility] Last Admin: 03/25/23 07:31 Dose: 10 mg Guaifenesin/Codeine Phosphate (Guaifen/Codeine Sf 200/20/10ml 10 Ml Liquid) 10 ml PO RQ6H PRN PRN Reason: Cough Last Admin: 03/25/23 00:30 Dose: 10 ml Lidocaine (Lidocaine 4 % Patch Adh..Patch) 1 patch TRANSDERMA DAILY PRN PRN Reason: pain Last Admin: 03/24/23 13:07 Dose: 1 patch Loratadine (Loratadine 10 Mg Tablet) 10 mg PO DAILY@1200 ARRON Last Admin: 03/24/23 11:47 Dose: 10 mg Risperidone (Risperidone 1 Mg Tablet) 1 mg PO BID [facility] Last Admin: 03/25/23 07:31 Dose: 1 mg Trazodone HCl (Trazodone Hcl 100 Mg Tablet) 100 mg PO BEDTIME PRN PRN Reason: Insomnia Last Admin: 03/23/23 20:34 Dose: 100 mg Allergies Allergies Allergy/AdvReac Type Severity Reaction Status Date / Time cat dander Allergy Unknown Unknown Verified 03/20/23 19:39 ciprofloxacin Allergy Unknown gastritis Verified 03/20/23 19:39 gabapentin Allergy Unknown Anaphylaxis Verified 03/20/23 19:39 hornet venom [HORNETS] Allergy Unknown ANAPHYLACTI Verified 03/20/23 19:39 C latex Allergy Unknown Rash Verified 03/20/23 19:39 metronidazole Allergy Unknown GI distress Verified 03/20/23 19:39 pregabalin [From Lyrica] Allergy Unknown Angioedema Verified 03/20/23 19:39 sorbitol [SORBITOL] Allergy Unknown RASH Verified 03/20/23 19:39 sulfamethoxazole Allergy Unknown RASH Verified 03/20/23 19:39 [From BACTRIM] sulfasalazine Allergy Unknown Rash Verified 03/20/23 19:39 trimethoprim [From BACTRIM] Allergy Unknown RASH Verified 03/20/23 19:39 iodine Allergy Hives Verified 03/20/23 19:39 medrol dose pack Allergy Severe face Uncoded 10/16/21 15:50 swelling DUST Allergy Unknown SINUS Uncoded 10/16/21 15:50 INFECTION bandaids Allergy Unknown Uncoded 10/16/21 15:50 contrast Allergy rash on Uncoded 10/16/21 15:50 face betamethasone dipropriate AdvReac Severe rash Uncoded 10/16/21 15:50 Assessment & Plan Assessment & Plan (1) Psychosis: Status: Acute Code(s): F29 - Unspecified psychosis not due to a substance or known physiological condition Plan Mrs. Jackson is a 67 year-old woman who was brought to [facility] after police found her at night waking confused in pj. At that time, she was positive for covid, reported and appeared internally preoccupied. She has cleared from psychosis and much less delusional. No SI/HI. She is fully oriented and safe to discharge back to the community. PLAN 1. Pt more stable. No acute psychosis or overt delusional. More oriented to what brought her to the hospital. Pt is stable to return home. 2. decrease risperidone 0.5mg po BID Total time managing care of this patient today ____ minutes.
[2023-03-25] MEDS: Loratadine 10 MG TABLET PO (13:59)
[2023-03-25 14:00] VITALS: BP 145/65; PULSE 96; RESP 18; TEMP 36.2; O2SAT 92
--- NOTE | 2023-03-25 17:10 | MHC.CARE ---
Patient was reassessed by the CARE Team and psychiatric provider this morning; her presentation has changed and she appears much more organized and linear in her thoughts, calm and cooperative. She is clear to discharge home, has an appointment here at [facility] on the 4th floor tomorrow at 10:30 am and will pick her up after. She is aware of the plan and in agreement, stated that she has a neurology appt directly after her and wants to attend this if still scheduled so should be dressed and discharged by 10:15.
--- NOTE | 2023-03-25 17:22 | MHC.EDTECH ---
pt ate 100% of dinner. 240cc of fluids.
[2023-03-26 05:15] VITALS: BP 151/75; PULSE 85; RESP 19; TEMP 36.4; O2SAT 91
[2023-03-26] MEDS: Atorvastatin Calcium 10 MG TABLET PO (08:12)
--- NOTE | 2023-03-26 10:05 | MHC.CARE ---
Call to [facility], patient will need follow up with psychiatry as new medication was started in the ED, she has an assigned provider, Soheila, that she had an intake with on 10/11/23. Scheduled next appt for patient on 04/02/23 @ 2:40 [facility] with Soheila. Provided this information to patient and her and advised that she cannot see therapist on her standing weekly appointment which is the same day, it was Cx'd Transfer summary emailed to psychiatry coordinator, Josephine at [email or web address] and she will share with provider. Form sent to [facility] [place] for 3 day follow up care, they will reach out to patient directly.
--- NOTE | 2023-03-26 10:06 | PC.NURSE ---
Pt given black suitcase, multiple bags of belongings and winter coat. dc'd into care of her . ambulatory to exit with chief security officer assisting with directions.
== END 2023-03-26 10:16 | disposition home or self-care (01) ==
PROVIDERS: Emergency Medicine; Nurse Practitioner Family; Student in an Organized Health Care Education/Training Program; Emergency Provider Emergency Medicine; PCP Internal Medicine
DX: F29 Unspecified psychosis not due to a substance or known physiological condition (principal); F43.23 Adjustment disorder with mixed anxiety and depressed mood; F23 Brief psychotic disorder; U07.1 COVID-19; R09.02 Hypoxemia; Z87.891 Personal history of nicotine dependence; E78.00 Pure hypercholesterolemia, unspecified; Z79.02 Long term (current) use of antithrombotics/antiplatelets; Z79.899 Other long term (current) drug therapy
CPT/HCPCS: 36415; 70450; 71045; 71250; 80053; 80307; 81001; 82803; 83605; 83735; 83880; 84484; 85025; 85379; 86140; 87040; 87502; 87635; 93005; 94640; 96365; 96366; 96367; 96375; 99285; J0456; J0696; J1885; J3475; S9485

== ENCOUNTER → 2023-03-20 19:33 | Outpatient (BNV) | payer MEDICARE, SELFPAY | PROVIDERS: Emergency Provider Emergency Medicine; PCP Internal Medicine; Visit Provider Internal Medicine Cardiovascular Disease | DX: I45.81 Long QT syndrome (principal) | CPT/HCPCS: 93010 ==

== ENCOUNTER → 2023-03-20 20:30 | Outpatient (BNV) | payer MEDICARE, SELFPAY | PROVIDERS: Emergency Provider Emergency Medicine; PCP Internal Medicine; Visit Provider Social Worker | DX: F29 Unspecified psychosis not due to a substance or known physiological condition (principal) | CPT/HCPCS: 99285 ==

== ENCOUNTER → 2023-03-21 00:14 | Outpatient (BNV) | payer MEDICARE, SELFPAY | PROVIDERS: Emergency Provider Emergency Medicine; PCP Internal Medicine; Visit Provider Internal Medicine Cardiovascular Disease | DX: R94.31 Abnormal electrocardiogram [ECG] [EKG] (principal) | CPT/HCPCS: 93010 ==

== ENCOUNTER 2023-04-10 08:53 | Inpatient (IN) | payer MEDICARE, SELFPAY ==
[2023-04-10 09:22] VITALS: BP 157/85; PULSE 124; RESP 18; TEMP 36.9; O2SAT 94; BMI 39.3
--- NOTE | 2023-04-10 09:25 | ED.GENADULT ---
HPI - General Adult General Chief complaint: Behavioral Concerns Stated complaint: Disoriented Time Seen by Provider: 04/10/23 09:25 History of Present Illness HPI narrative: This is a 68-year-old woman with a history of psychotic behavior who recently had a prolonged stay in our emergency room behavioral problems and was also COVID positive. She was ultimately discharged from the emergency room 5 days. She was discharged on March 25, 2 weeks ago. The patient was brought to the emergency room today by her who was concerned that she is once again exhibiting significantly disorganized behavior. She has been increasingly aggressive with her , spending excess money, and goes out in the middle of the night wandering the streets. She denies any physical complaints such as fever, sweats, chills. She denies headache, chest pain, abdominal pain, nausea, vomiting. Related Data Home Medications Medication Instructions Recorded Confirmed epinephrine 0.3 mg/0.3 mL 0.3 mg IM DIRECTED 03/29/22 03/21/23 injection, auto-injector (EpiPen 2-Hebert) ezetimibe 10 mg tablet 1 tab PO DAILY 03/29/22 03/21/23 atorvastatin 10 mg tablet 10 mg PO DAILY 03/21/23 03/21/23 lidocaine 5 % topical patch 1 patch topical DAILY PRN pain 03/21/23 03/21/23 trazodone 100 mg tablet 100 mg PO BEDTIME PRN Insomnia 03/21/23 03/21/23 Previous Rx's Medication Instructions Recorded loratadine 10 mg tablet 10 mg PO DAILY@1200 #30 tabs 04/03/22 albuterol sulfate 90 mcg/actuation 2 puff inhalation Q4-6H PRN 03/18/23 aerosol inhaler shortness of breath or wheezing #6.7 grams amoxicillin 875 mg-potassium 1 tab PO BID 7 days #14 tabs 03/18/23 clavulanate 125 mg tablet azithromycin 250 mg tablet See Rx Instructions PO .COMPLEX #6 03/18/23 tabs benzonatate 100 mg capsule 100 mg PO TID PRN cough #14 caps 03/18/23 risperidone 0.5 mg tablet 0.5 mg PO BID 30 days #60 tabs 03/26/23 Allergies Allergy/AdvReac Type Severity Reaction Status Date / Time cat dander Allergy Unknown Unknown Verified 03/20/23 19:39 ciprofloxacin Allergy Unknown gastritis Verified 03/20/23 19:39 gabapentin Allergy Unknown Anaphylaxis Verified 03/20/23 19:39 hornet venom [HORNETS] Allergy Unknown ANAPHYLACTI Verified 03/20/23 19:39 C latex Allergy Unknown Rash Verified 03/20/23 19:39 metronidazole Allergy Unknown GI distress Verified 03/20/23 19:39 pregabalin [From Lyrica] Allergy Unknown Angioedema Verified 03/20/23 19:39 sorbitol [SORBITOL] Allergy Unknown RASH Verified 03/20/23 19:39 sulfamethoxazole Allergy Unknown RASH Verified 03/20/23 19:39 [From BACTRIM] sulfasalazine Allergy Unknown Rash Verified 03/20/23 19:39 trimethoprim [From BACTRIM] Allergy Unknown RASH Verified 03/20/23 19:39 iodine Allergy Hives Verified 03/20/23 19:39 medrol dose pack Allergy Severe face Uncoded 10/16/21 15:50 swelling DUST Allergy Unknown SINUS Uncoded 10/16/21 15:50 INFECTION bandaids Allergy Unknown Uncoded 10/16/21 15:50 contrast Allergy rash on Uncoded 10/16/21 15:50 face betamethasone dipropriate AdvReac Severe rash Uncoded 10/16/21 15:50 Review of Systems Review of Systems: Yes all other systems are reviewed and are negative PMFSH Past Medical History Medical History Vulvodynia Adjustment disorder with mixed anxiety and depressed mood Other screening mammogram IBS (irritable bowel syndrome) Depression GERD (gastroesophageal reflux disease) Hypercholesterolemia Lung nodule Proctalgia fugax Pelvic floor dysfunction Anal sphincter incompetence Gallstones Chronic bilateral low back pain without sciatica Acute allergic rhinitis Surgical History Hx of colonoscopy Hx of tonsillectomy Family History Family History Mother Diabetes Pancreatic cancer Kidney problem Father Lung cancer Brother Peripheral vascular disease Brother CAD (coronary artery disease) Brother No problems noted. Sister Diabetes Sister Depression Maternal Grandmother Diabetes Hypertension Stroke Maternal Grandfather Lung disease Tuberculosis Other Colon cancer Ovarian cancer Stomach cancer Uterine cancer Social History Social History Household Members: Spouse Housing: House Do you presently have visiting nurse or other home services: No Alcohol intake: never Patient Tobacco Use Status: Former Tobacco user Quit Date: 2016 Tobacco use type: Cigarette Cigarette Packs Per Day: 1 Cigarettes Per Day: 20.0 Years Smoked: 40 e-Cigarette/Vaping Use: Former Use Advance Directives: Yes Advance Directives on File: Yes Advance Directives Date on File: 10/10/21 Healthcare Proxy: No Guardian: No service: No Sexual orientation: Straight/Heterosexual Physical Exam ED Vital Signs: Vital Signs - 24 hr 04/10/23 09:22 Temperature 98.4 F Pulse Rate 124 H Respiratory Rate 18 Blood Pressure 157/85 H Pulse Oximetry 94 Oxygen Delivery Method Room Air BMI result Body Mass Index 39.3 Const Other: The patient is a well-developed 68-year-old who was awake and alert. She has an intense affect and pressured speech. She has not seem in distress HENMT Other: The face is symmetrical. ?Mucous membranes moist. Eyes Other: Pupils are round equal, conjunctivae are clear, extraocular movements intact Neck Other: Moving her neck easily, no JVD Resp Effort & Inspection: normal respiratory effort Auscultation: clear to auscultation bilaterally Cardio Rate: regular rate Rhythm: regular rhythm Heart sounds: S1 normal heart sound present and S2 normal heart sound present GI Other: Abdomen is soft and nontender Skin Other: Skin is dry and unremarkable Neuro Other: The patient is awake and alert. She has an intense affect. Her speech is clear. Eye movements normal. Moving her extremities normally. Gait is steady. She has a nonfocal neurological exam Extrem Other: No peripheral edema Psych Other: The patient is well-kempt. She has pressured speech. She exhibits paranoid thoughts and has no insight into her abnormal behaviors Medical Decision Making Medical Decision Making MDM Narrative: The patient was brought to the hospital by her who is concerned for her safety. He feels that she has been behaving more and more erratically and aggressively and potentially dangerously. The patient was seen initially in the waiting room by me and by the social media senior associate and we agreed that the patient's behavior seem consistent with a possible manic episode and that she was exhibiting sufficiently disorganized thoughts and behaviors that she should be evaluated under a section 12. The patient was ultimately convinced to come into the emergency department. She has had lab testing that is unremarkable. Clinically she seems medically stable [facility]. Lab Data 04/10/23 11:33 04/10/23 11:33 Labs: Lab Results 04/10/23 04/10/23 Range/Units 11:33 13:25 WBC 12.7 H (4.8-10.8) X10*3/uL RBC 4.89 (4.20-5.50) X10*6/uL Hgb 14.0 (12.0-16.0) g/dl Hct 42.3 (37.0-47.0) % MCV 86.5 (80.0-98.0) fL MCH 28.6 (27.0-33.0) pg MCHC 33.1 (31.0-35.0) g/dl RDW 15.2 (11.0-16.0) % Plt Count 370 (160-400) X10*3/uL MPV 10.3 (9.4-12.3) fL Immature Gran % (Auto) 0.5 H (0.0-0.4) % Neut % (Auto) 76.7 H (45-73) % Lymph % (Auto) 15.4 L (20-40) % [place] % (Auto) 6.9 (2-11) % Eos % (Auto) 0.2 (0-4) % Baso % (Auto) 0.3 (0-2) % Lymph # (Auto) 2.0 (1.2-4.9) X10*3/uL [place] # (Auto) 0.9 (0.1-1.2) X10*3/uL Eos # (Auto) 0.0 (0.0-0.4) X10*3/uL Baso # (Auto) 0.0 (0.0-0.2) X10*3/uL Abs Immat Gran (auto) 0.07 H (0.00-0.03) X10*3/uL Absolute Neuts (auto) 9.8 H (2.0-8.3) x10*3/uL Absolute Nucleated RBC 0.000 (0.0-0.012) X10*3/uL Nucleated RBC % (auto) 0.0 (0.0-0.2) /100WBC Sodium 140 (135-145) mmol/L Potassium 3.6 (3.3-5.1) mmol/L Chloride 104 (96-108) mmol/L Carbon Dioxide 26 (22-29) mmol/L Anion Gap 14 (12-20) BUN 19 H (9-16) mg/dL Creatinine 0.76 (0.5-1.4) mg/dL Estim Creat Clear Calc 79.4 Estimated GFR > 60 Random Glucose 127 H (60-115) mg/dL Calcium 9.6 (8.4-10.2) mg/dL Total Bilirubin 0.4 (0.0-1.0) mg/dL Direct Bilirubin 0.2 (0.0-0.5) mg/dL AST 26 (5-31) U/L ALT 29 (0-31) U/L Alkaline Phosphatase 88 (39-117) U/L Total Protein 7.4 (6.5-8.0) g/dL Albumin 4.2 (3.5-5.0) g/dL Urine Color Yellow Urine Appearance Turbid Urine pH 6.5 (5.0-9.0) Ur Specific [place] 1.015 (1.005-1.025) Urine Protein Negative (Neg-Trace) mg/dL Urine Glucose (UA) Negative (Negative) mg/dL Urine Ketones Trace (Negative) mg/dL Urine Blood Negative (Negative) Urine Nitrite Negative (Negative) Ur Leukocyte Esterase Negative (Negative) Urine Opiates Screen Not Detected (Not Detect) Urine Fentanyl Screen Not Detected (Not Detect) Ur Barbiturates Screen Not Detected (Not Detect) Ur Phencyclidine Scrn Not Detected (Not Detect) Ur Amphetamines Screen Not Detected (Not Detect) U Benzodiazepines Scrn Not Detected (Not Detect) Urine Cocaine Screen Not Detected (Not Detect) U Marijuana (THC) Screen Not Detected (Not Detect) Ethyl Alcohol < 10 mg/dL COVID-19 (RHIANNA) Negative (Negative) COVID-19 Clin Com See Note Discharge Plan Discharge Clinical Impression: Psychosis Patient Disposition: Still a Patient Prescriptions: No Action epinephrine [EpiPen 2-Hebert] 0.3 mg/0.3 mL auto-injector 0.3 mg IM DIRECTED ezetimibe 10 mg tablet 1 tab PO DAILY loratadine 10 mg Tablet 10 mg PO DAILY@1200 Qty: 30 0RF azithromycin 250 mg tablet See Rx Instructions .ROUTE .COMPLEX Qty: 6 0RF Rx Instructions: take 500 mg today (day 1), then 250 mg for 4 days (days 2-5) benzonatate 100 mg capsule 100 mg PO TID PRN (Reason: cough) Qty: 14 0RF albuterol sulfate 90 mcg/actuation HFA aerosol inhaler 2 puff inhalation Q4-6H PRN (Reason: shortness of breath or wheezing) Qty: 6.7 0RF amoxicillin-pot clavulanate 875-125 mg tablet 1 tab PO BID 7 Days Qty: 14 0RF atorvastatin 10 mg tablet 10 mg PO DAILY trazodone 100 mg tablet 100 mg PO BEDTIME PRN (Reason: Insomnia) lidocaine 5 % adhesive patch,medicated 1 patch topical DAILY PRN (Reason: pain) risperidone 0.5 mg tablet 0.5 mg PO BID 30 Days Qty: 60 0RF
--- NOTE | 2023-04-10 10:35 | PC.NURSE ---
patient changed into hospital attire with nurse and security staff, all of patient belongings went home with patients , medical laboratory technical officer Elvin Matta witnessed bring clothes off of unit to car.
--- NOTE | 2023-04-10 10:58 | MHC.EDTECH ---
Patient refused vitals.
--- NOTE | 2023-04-10 11:24 | PC.NURSE ---
patient is agreeing to allow staff to do her blood work. patient is calm and cooperative
[2023-04-10 11:40] LABS: MANUAL DIFF FLAG NO
[2023-04-10 11:49] LABS: Basophils Percent Auto 0.3 % (0-2); Eosinophils Percent Auto 0.2 % (0-4); Hematocrit 42.3 % (37.0-47.0); Imm Gran Abs Auto 0.07 X10*3/uL (0.00-0.03); Imm Gran Pct Auto 0.5 % (0.0-0.4); Lymphocytes Percent Auto 15.4 % (20-40); Mean Corpuscular HGB Conc 33.1 g/dl (31.0-35.0); Mean Corpuscular Hemoglobin 28.6 pg (27.0-33.0); Mean Corpuscular Volume 86.5 fL (80.0-98.0); Mean Platelet Volume 10.3 fL (9.4-12.3); Monocytes Absolute Auto 0.9 X10*3/uL (0.1-1.2); Monocytes Percent Auto 6.9 % (2-11); Neutrophils Absolute Auto 9.8 x10*3/uL (2.0-8.3); Neutrophils Percent Auto 76.7 % (45-73); Platelet Count 370 X10*3/uL (160-400); Red Blood Count 4.89 X10*6/uL (4.20-5.50); Red Cell Distribution Width 15.2 % (11.0-16.0); White Blood Count 12.7 X10*3/uL (4.8-10.8)
[2023-04-10 11:58] LABS: Alanine Aminotransferase 29 U/L (0-31); Albumin Level 4.2 g/dL (3.5-5.0); Alkaline Phosphatase 88 U/L (39-117); Anion Gap 14 (12-20); Aspartate Amino Transferase 26 U/L (5-31); Bilirubin Direct 0.2 mg/dL (0.0-0.5); Bilirubin Total 0.4 mg/dL (0.0-1.0); Blood Urea Nitrogen 19 mg/dL (9-16); Calcium 9.6 mg/dL (8.4-10.2); Carbon Dioxide 26 mmol/L (22-29); Chloride 104 mmol/L (96-108); Creatinine Clr Calc Pharmacy 79.4; Estimated Glomerular Filt Rate > 60; Ethanol < 10 mg/dL; Glucose Random 127 mg/dL (60-115); Potassium 3.6 mmol/L (3.3-5.1); Sodium 140 mmol/L (135-145); Total Protein 7.4 g/dL (6.5-8.0)
[2023-04-10 11:59] LABS: COVID-19 Test Negative (Negative); IDNOW Serial# 152EDE1D
[2023-04-10 13:39] LABS: Appearance Urine Turbid; Color Urine Yellow; Glucose Urine UA Negative (Negative); Leukocyte Esterase Urine Negative (Negative); Nitrite Urine Negative (Negative); PH 6.5 (5.0-9.0); Specific Gravity - Urine 1.015 (1.005-1.025); Urine Blood Negative (Negative); Urine Ketones Trace mg/dL (Negative); Urine Protein Negative (Neg-Trace)
[2023-04-10 13:43] LABS: Amphetamine Screen Urine Not Detected (Not Detect); Barbiturates, Urine Not Detected (Not Detect); Benzodiazepines Screen Urine Not Detected (Not Detect); Cannabinoid Screen Urine Not Detected (Not Detect); Cocaine Screen Urine Not Detected (Not Detect); Fentanyl, urine Not Detected (Not Detect); Opiate Screen Urine Not Detected (Not Detect); Phencyclidine Screen Urine Not Detected (Not Detect)
--- NOTE | 2023-04-10 14:49 | ECG_ITS ---
Test Reason : MEDICALLY CLEARANCE Blood Pressure : / mmHG Vent. Rate : 094 BPM Atrial Rate : 094 BPM P-R Int : 124 ms QRS Dur : 082 ms QT Int : 376 ms P-R-T Axes : 063 075 056 degrees QTc Int : 470 ms Normal sinus rhythm Normal ECG When compared with ECG of 21-MAR-2023 00:32, No significant change was found Referred By: Vince Rosario Electronically Signed By:MELISSA BLANC MD
--- NOTE | 2023-04-10 15:01 | PC.NURSE ---
this RN was alerted by [facility] that patients had brought her belongings to her at the bedside, patient was in possession of her purse, medications. security was made aware and patients belongings and were escorted back off of unit. patients educated on the importance of patient not having belongings due to safety. patient sitter aware that patient is to not have any belongings.
--- NOTE | 2023-04-10 17:05 | MHC.EDTECH ---
Gave patient an ice pack and a cup of adele hardeep.
--- NOTE | 2023-04-10 18:12 | PC.NURSE ---
patient ambulates with steady gait, sitter at bedside 1:1
[2023-04-10 19:26] VITALS: BP 156/50; PULSE 91; RESP 16; TEMP 36.8; O2SAT 95
--- NOTE | 2023-04-11 08:28 | PC.NURSE ---
Resumed care of patient, she is currently resting, all needs met at this time, safety measures in place
[2023-04-11 09:37] VITALS: BP 136/59; PULSE 75; RESP 18; TEMP 36.8; O2SAT 94
--- NOTE | 2023-04-11 10:03 | PC.NURSE ---
no resp distress. calm, coop. no si/hi. walks well. eating/drinking well. sitter at bedside. no pain reported.
--- NOTE | 2023-04-11 12:55 | PC.NURSE ---
s1 called for report for pt.
--- NOTE | 2023-04-11 13:00 | PC.NURSE ---
resting, calm, coop, eating lunch well. no si/hi reported
--- NOTE | 2023-04-11 13:15 | PC.NURSE ---
rn completed med rec with pt- pt knew all her last doses and which ones was/was not taking. called s1 rn to confirm this rn entered.
[2023-04-11 14:22] VITALS: BP 142/68; PULSE 76; RESP 18; TEMP 36.3; O2SAT 93
[2023-04-11 14:33] VITALS: BMI 37.1
--- NOTE | 2023-04-11 18:04 | PC.ADMIT ---
Pt. arrived on unit 14:05 via wheelchair accompanied by this RN and security. Pt. oriented to unit and policies. Pt. lives in house with and had become increasingly disorganized, becoming aggressive to , spending excessive money, and eloping from the home. She presented to ED after being dropped off by a stranger after hitchhiking at 3 AM. A & O X 3. Poor insight into situation and is adamant she has no psychiatric issues and is hyper focused on as the problem.. Pt. signed CV for admission to the unit and all releases and paperwork, then immediately requested and signed a 3 day notice. Pleasant and cooperative during admission process, but becomes quickly tangential. Had visit with and relatives from [place]. stating that she cannot go home and requesting she be sent to a retreat where she can learn how to smoke less and take her medications. Assured that he would be invited to family meeting to discuss barriers to her discharge home. Pt. ambulating with good balance and steady gait, but will be monitored as high fall risk x 24 hours. Denies anxiety/depression/SI/HI/perceptual disturbances.
[2023-04-11 19:45] VITALS: BP 121/56; PULSE 87; RESP 16; TEMP 36.2; O2SAT 93
[2023-04-11] MEDS: Loratadine 10 MG TABLET PO (23:42)
[2023-04-12 08:38] VITALS: BP 149/58; PULSE 77; RESP 17; O2SAT 94
[2023-04-12] MEDS: Atorvastatin Calcium 10 MG TABLET PO (08:45)
[2023-04-12] MEDS: Ezetimibe 10 MG TABLET PO (08:45)
--- NOTE | 2023-04-12 10:52 | P.HPPS_ITS ---
[facility] Date of Service: 04/12/23 Chief Complaint: Psychosis Sources of Information: patient interviewed, chart reviewed and crisis/core team assessment reviewed HPI Subjective Notes: Jordan Warning, Conditional Voluntary and 3 Day Narrative: ED Physician Evaluation 04/10/23: 68-year-old woman with a history of psychotic behavior who recently had a prolonged stay in our emergency room behavioral problems and was also COVID positive. She was ultimately discharged from the emergency room 5 days. She was discharged on March 25, 2 weeks ago. The patient was brought to the emergency room today by her who was concerned that she is once again exhibiting significantly disorganized behavior. She has been increasingly aggressive with her , spending excess money, and goes out in the middle of the night wandering the streets. Psychiatry Consult 03/21/23: 67 year-old woman who was brought in by police. Initially no report given to hospital staff from police as to reason to bring pt here. Pt presented with auditory hallucinations reporting multiple voices talking to her, not trusting her thinks he may harm her and was not letting her drive. Apparently, was not aware pt was here in hospital and brought by police. Later it was confirmed that she was walking in PJ in middle of night and appear psychotic. In the ED, pt positive for covid. Mrs. Jackson is know to [facility] through previous episode of psychosis and delusions which at the time was her first psychotic episode. She had been seen by neurology, MRI was completed. DEMARCUS negative. RPR neg. Unclear if LP was ever completed. No record of it here at [facility]. Per pt has also presented with over spending behaviors, irritability. has reported he is not able to care for her. In the ED, pt presents as guarded. She reports she thinks someone may be trying to harm her here in the hospital. She reports she is upset with her because he does not let her drive. She reports hearing voices constantly these voices being overwhelming to her. Past Psychiatric History: Brief outpatient therapy and use of Zoloft around the time she started her menopause she was given Zoloft that she took very briefly and stopped because it made her very flat emotionally Today: On the unit patient is quite pressured, intrusive with others and some irritability. No cognitive concerns noted. Reports she signed into the hospital to keep quiet but does not need to be here. Reports his problems are having Parkinson's and memory problems. Reports feeling well wanting to be discharged. We did discuss at length Section 12 B and Jordan warning and patient did show understanding of same. That being said she is very tangential and jumps from topic very quickly. Reports that family came to visit from [place] around 2 weeks ago. Reports that she started smoking cigarettes again after 7 years. Reports also spending lots of money and treating them and that her credit cards are now all blocked and she is very annoyed about this. Reports having her own money and can spend it as she likes and has no concerns regarding what she has been recently. Reports her family have been keeping her in the house and not letting her leave and that is part of the reason why she left the house and asked a neighbor to drive her to the hospital. Reports she did take Risperdal recently, but it made her tired and she does not want to take any medications. Reports he has been sleeping well. Denies substance use. Denies SI or HI. Denies feeling depressed. Is however tearful and irritable at times when discussing her current situation. Reports she will only consider medications if her team speak with her primary care provider. She did give permission to speak with her at [phone], cell number or the home telephone [phone]. Past Psychiatric History: Discharge Summary March 2022: , unemployed open) use to work in the [employer] department/[employer] and was laid off in 2017 because of downsizing), woman who lives with her of many years.? A number of days ago Kaycee had a fall and banged the left side of her head and was ordered an MRI which was supposed to be done on 03/29/2022 however she did not want to do it and the day before she became angry and agitated over this and started to shout, throwing things against the wall, broke a flat screen TV and through 2 speakers to the wall etc..? The police were called and she was brought to the emergency room were she was physically and chemically restrained.? According to her she has been showing signs of irritability, paranoia, suspiciousness.? He also stated that she would have episodes and periods of talking about the issues that she was paranoid and suspicious about and then would have periods of clarity and no agitation.? Talking about someone may be trying to poison her, something pertaining to which is etc..? When I confronted her with these she essentially said that she has had bad experiences with medications in the past and is very suspicious of the affect of medicine on her ex cetera.? She has had allergic reactions to gabapentin and Lyrica.? No suicidal or homicidal ideations.? She has not been sleeping too well and has been sleeping with the lights on for some time.? She has been able to do her work around the house with cooking and cleaning.? No prior major psychiatric treatments other than when 1 of her brothers in 2019 she had sought some outpatient counseling and also when her father some years earlier. Past Psychiatric History: Brief outpatient therapy and use of Zoloft around the time she started her menopause she was given Zoloft that she took very briefly and stopped because it made her very flat emotionally....Declined medications and on day of discharge: Pt presents as paranoid and suspicious but less so than when admitted. Cause in changes in behavior and new onset paranoid are unclear at this point and pt had declined further medical work up including MRI. Pt seen by neurology who recommended starting with MRI, to considering LP, paraneoplastic panel. Medical Evaluation Reviewed: Yes [facility] Medical History Vulvodynia Adjustment disorder with mixed anxiety and depressed mood Other screening mammogram IBS (irritable bowel syndrome) Depression GERD (gastroesophageal reflux disease) Hypercholesterolemia Lung nodule Proctalgia fugax Pelvic floor dysfunction Anal sphincter incompetence Gallstones Chronic bilateral low back pain without sciatica Acute allergic rhinitis Surgical History Hx of colonoscopy Hx of tonsillectomy Family History: Unknown Social History: per chart: Kaycee was born and raised in [place]. She states that both her parents are . She had a brother who in 2019 and that was difficult for her. She came to this area when she was 39. She had an aunt who lived in [place] and after that she liked the area and decided to stay. She then met her and they got fairly quickly. 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 She currently lives with her Diagnostics Vital Signs (24Hr): Vital Signs - 24 hr 04/11/23 14:22 04/11/23 19:45 04/12/23 08:38 Temperature 97.4 F 97.1 F Pulse Rate 76 87 77 Respiratory Rate 18 16 17 Blood Pressure 142/68 H 121/56 L 149/58 H Pulse Oximetry 93 93 94 Oxygen Delivery Method Room Air Room Air Room Air BMI result Body Mass Index 37.1 Labs 04/10/23 11:33 04/10/23 11:33 Labs: Laboratory Results - last 48 hr 04/10/23 04/10/23 11:33 13:25 WBC 12.7 H RBC 4.89 Hgb 14.0 Hct 42.3 MCV 86.5 MCH 28.6 MCHC 33.1 RDW 15.2 Plt Count 370 MPV 10.3 Immature Gran % (Auto) 0.5 H Neut % (Auto) 76.7 H Lymph % (Auto) 15.4 L Larimer % (Auto) 6.9 Eos % (Auto) 0.2 Baso % (Auto) 0.3 Lymph # (Auto) 2.0 Larimer # (Auto) 0.9 Eos # (Auto) 0.0 Baso # (Auto) 0.0 Abs Immat Gran (auto) 0.07 H Absolute Neuts (auto) 9.8 H Absolute Nucleated RBC 0.000 Nucleated RBC % (auto) 0.0 Sodium 140 Potassium 3.6 Chloride 104 Carbon Dioxide 26 Anion Gap 14 BUN 19 H Creatinine 0.76 Estim Creat Clear Calc 79.4 Estimated GFR > 60 Random Glucose 127 H Calcium 9.6 Total Bilirubin 0.4 Direct Bilirubin 0.2 AST 26 ALT 29 Alkaline Phosphatase 88 Total Protein 7.4 Albumin 4.2 Urine Color Yellow Urine Appearance Turbid Urine pH 6.5 Ur Specific Chappell 1.015 Urine Protein Negative Urine Glucose (UA) Negative Urine Ketones Trace Urine Blood Negative Urine Nitrite Negative Ur Leukocyte Esterase Negative Urine Opiates Screen Not Detected Urine Fentanyl Screen Not Detected Ur Barbiturates Screen Not Detected Ur Phencyclidine Scrn Not Detected Ur Amphetamines Screen Not Detected U Benzodiazepines Scrn Not Detected Urine Cocaine Screen Not Detected U Marijuana (THC) Screen Not Detected Ethyl Alcohol < 10 COVID-19 (RHIANNA) Negative COVID-19 Clin Com See Note Meds/Allergies Meds Home Medications Medication Instructions Recorded Confirmed Type epinephrine 0.3 mg/0.3 mL 0.3 mg IM DIRECTED 03/29/22 04/11/23 History injection, auto-injector (EpiPen 2-Hebert) ezetimibe 10 mg tablet 1 tab PO DAILY 03/29/22 04/11/23 History atorvastatin 10 mg tablet 10 mg PO DAILY 03/21/23 04/11/23 History lidocaine 5 % topical patch 1 patch topical DAILY PRN pain 03/21/23 04/11/23 History Allergies Allergies Allergy/AdvReac Type Severity Reaction Status Date / Time cat dander Allergy Unknown Unknown Verified 03/20/23 19:39 ciprofloxacin Allergy Unknown gastritis Verified 03/20/23 19:39 gabapentin Allergy Unknown Anaphylaxis Verified 03/20/23 19:39 hornet venom [HORNETS] Allergy Unknown ANAPHYLACTI Verified 03/20/23 19:39 C latex Allergy Unknown Rash Verified 03/20/23 19:39 metronidazole Allergy Unknown GI distress Verified 03/20/23 19:39 pregabalin [From Lyrica] Allergy Unknown Angioedema Verified 03/20/23 19:39 sorbitol [SORBITOL] Allergy Unknown RASH Verified 03/20/23 19:39 sulfamethoxazole Allergy Unknown RASH Verified 03/20/23 19:39 [From BACTRIM] sulfasalazine Allergy Unknown Rash Verified 03/20/23 19:39 trimethoprim [From BACTRIM] Allergy Unknown RASH Verified 03/20/23 19:39 iodine Allergy Hives Verified 03/20/23 19:39 medrol dose pack Allergy Severe face Uncoded 10/16/21 15:50 swelling DUST Allergy Unknown SINUS Uncoded 10/16/21 15:50 INFECTION bandaids Allergy Unknown Uncoded 10/16/21 15:50 contrast Allergy rash on Uncoded 10/16/21 15:50 face betamethasone dipropriate AdvReac Severe rash Uncoded 10/16/21 15:50 Mental Status Exam Mental Status Exam Narrative: Some irritability. Casually dressed and presented. Pressured speech. Is tangential. Some mood lability evident. No SI. No HI. Does appear paranoid. Denies hallucinations. Insight and judgment does appear limited Assessment & Plan Assessment & Plan (1) Psychosis: Status: Acute Code(s): F29 - Unspecified psychosis not due to a substance or known physiological condition Plan Presents with paranoia and disorganized and impulsive behavior. Inisght very limited. Hold on S12 (exp 04/16/23). Reports she will only consider medications if her team speak with her primary care provider. She did give permission to speak with her at [phone], cell number or the home telephone [phone]. Patient educated on: medication risk/benefits Informed Consent: further education needed Reason for continued inpatient stay Substantial Risk for: inability to function Statement Statement: I have reviewed the history and physical and performed a pertinent examination on my patient. No changes have occurred unless specified. If the History and Physical was not performed prior to admission, the Hospitalist's service will be consulted for completing the admission physical. Time Spent With Patient Time: Total time managing care of this patient today ____ minutes.
[2023-04-12 13:33] LABS: Estimated Average Glucose 117 mg/dL; Hemoglobin A1c % 5.7 % (<6.0)
[2023-04-12] MEDS: Loratadine 10 MG TABLET PO (17:16)
[2023-04-12] MEDS: Benzonatate 100 MG CAPSULE PO (17:21)
--- NOTE | 2023-04-12 17:25 | PC.NURSE ---
Patients afternoon Claritin for today was documented as already given at 23:42 yesterday 04/11. Discrepancy was caught this evening and patient received todays scheduled Claritin at 17:20 (marked as an unscheduled dose).
[2023-04-12 20:00] VITALS: BP 111/55; PULSE 68; RESP 20; TEMP 36.3; O2SAT 94
[2023-04-12] MEDS: hydrOXYzine HCL 25 MG TABLET PO (21:10)
[2023-04-12 22:10] VITALS: RESP 18
[2023-04-13 06:35] LABS: Alanine Aminotransferase 22 U/L (0-31); Albumin Level 3.7 g/dL (3.5-5.0); Alkaline Phosphatase 81 U/L (39-117); Anion Gap 10 (12-20); Aspartate Amino Transferase 20 U/L (5-31); Bilirubin Total 0.4 mg/dL (0.0-1.0); Blood Urea Nitrogen 18 mg/dL (9-16); Calcium 9.1 mg/dL (8.4-10.2); Carbon Dioxide 29 mmol/L (22-29); Chloride 106 mmol/L (96-108); Cholesterol 150 mg/dL (<200); Estimated Glomerular Filt Rate > 60; Glucose Fasting 102 mg/dL (60-99); HDL Cholesterol 39 mg/dL (>40); LDL Cholesterol Calculated 99 mg/dL (<100); Potassium 4.4 mmol/L (3.3-5.1); Sodium 141 mmol/L (135-145); Total Protein 6.6 g/dL (6.5-8.0); Triglycerides 62 mg/dL (<150)
[2023-04-13 06:49] LABS: Thyroid Stimulating Hormone 1.51 uIU/mL (0.32-4.0)
[2023-04-13 06:56] LABS: Vitamin B12 313 pg/mL (200-900)
[2023-04-13 08:41] VITALS: BP 124/60; PULSE 81; RESP 16; TEMP 36.3; O2SAT 92
[2023-04-13] MEDS: Atorvastatin Calcium 10 MG TABLET PO (08:44)
[2023-04-13] MEDS: Ezetimibe 10 MG TABLET PO (08:44)
[2023-04-13] MEDS: Benzonatate 100 MG CAPSULE PO (08:50)
--- NOTE | 2023-04-13 10:00 | P.PNPSI_ITS ---
Subjective Subjective Date of Service: 04/13/23 Reason For Visit: Psychosis Subjective Notes: 3 Day Interim History: Intrusive and demanding and verbally hostile at times. Disrupting milieu. Decling risperdal. Slept OK. Today reports I'm perfect . Appetite OK. Was concerned there was a camera in her room (smoke alarm), had some reassurance ref same. No SI, HI. Still wants discharge. Will call , Isreal today. Medication Compliance: No Side effects from medications: No Attending Groups: Yes Review of Systems Acute medical concerns: No Review of Systems Review of Systems Yes all other systems are reviewed and are negative Mental Status Exam Mental Status Exam Narrative: More pleasant with administrative underwriter this morning. Casually dressed and presented. Pressured speech. Is tangential. Some mood lability evident. No SI. No HI. Does appear paranoid. Denies hallucinations. Insight and judgment does appear limited Diagnostics Vital Signs (24Hr): Vital Signs - 24 hr 04/12/23 20:00 04/12/23 22:10 04/13/23 08:41 Temperature 97.3 F 97.4 F Pulse Rate 68 81 Respiratory Rate 20 18 16 Blood Pressure 111/55 L 124/60 Pulse Oximetry 94 92 Oxygen Delivery Method Room Air Room Air BMI result Body Mass Index 37.1 Labs 04/10/23 11:33 04/13/23 06:08 Labs: Laboratory Results - last 48 hr 04/12/23 04/13/23 Unknown 06:08 Sodium 141 Potassium 4.4 D Chloride 106 Carbon Dioxide 29 Anion Gap 10 L BUN 18 H Creatinine 0.80 Estim Creat Clear Calc 73.0 Estimated GFR > 60 Fasting Glucose 102 H Estimat Average Glucose 117 Hemoglobin A1c % 5.7 Calcium 9.1 Total Bilirubin 0.4 AST 20 ALT 22 Alkaline Phosphatase 81 Total Protein 6.6 Albumin 3.7 Triglycerides 62 Cholesterol 150 LDL Cholesterol, Calc 99 HDL Cholesterol 39 L Vitamin B12 313 TSH 1.51 Medications Medications Current Medications Acetaminophen (Acetaminophen 325 Mg Tablet) 650 mg PO Q6H PRN PRN Reason: Headache/Pain Mild Scale (1-3) Al Hydroxide/Mg Hydroxide (Magnesium Hydrox/Alum Hydrox 30 Ml Oral.Susp) 30 ml PO Q6H PRN PRN Reason: Heartburn/Nausea Albuterol Sulfate (Albuterol Sulfate 90 Mcg 8 Gm Inhaler) 2 puff INHALE Q4H PRN PRN Reason: shortness of breath or wheezing Atorvastatin Calcium (Atorvastatin Calcium 10 Mg Tablet) 10 mg PO DAILY [facility] Last Admin: 04/13/23 08:44 Dose: 10 mg Benzonatate (Benzonatate 100 Mg Capsule) 100 mg PO TID PRN PRN Reason: cough Last Admin: 04/13/23 08:50 Dose: 100 mg Ezetimibe (Ezetimibe 10 Mg Tablet) 10 mg PO DAILY [facility] Last Admin: 04/13/23 08:44 Dose: 10 mg Epinephrine (Epinephrine 1 Mg/Ml Vial) 0.3 mg IM DAILY PRN PRN Reason: Allergic Reaction Hydroxyzine HCl (Hydroxyzine Hcl 25 Mg Tablet) 25 mg PO Q6H PRN PRN Reason: Anxiety Last Admin: 04/12/23 21:10 Dose: 25 mg Lidocaine (Lidocaine 4 % Patch Adh..Patch) 1 patch TRANSDERMA DAILY PRN PRN Reason: pain Loratadine (Loratadine 10 Mg Tablet) 10 mg PO DAILY@1200 [facility] Last Admin: 04/12/23 17:16 Dose: 10 mg Magnesium Hydroxide (Milk Of Magnesia 30 Ml Oral.Susp) 30 ml PO DAILY PRN PRN Reason: Constipation Risperidone (Risperidone 0.5 Mg Tablet) 0.5 mg PO BID [facility] Last Admin: 04/13/23 08:48 Dose: Not Given Trazodone HCl (Trazodone Hcl 50 Mg Tablet) 50 mg PO BEDTIME PRN PRN Reason: Insomnia Allergies Allergies Allergy/AdvReac Type Severity Reaction Status Date / Time cat dander Allergy Unknown Unknown Verified 03/20/23 19:39 ciprofloxacin Allergy Unknown gastritis Verified 03/20/23 19:39 gabapentin Allergy Unknown Anaphylaxis Verified 03/20/23 19:39 hornet venom [HORNETS] Allergy Unknown ANAPHYLACTI Verified 03/20/23 19:39 C latex Allergy Unknown Rash Verified 03/20/23 19:39 metronidazole Allergy Unknown GI distress Verified 03/20/23 19:39 pregabalin [From Lyrica] Allergy Unknown Angioedema Verified 03/20/23 19:39 sorbitol [SORBITOL] Allergy Unknown RASH Verified 03/20/23 19:39 sulfamethoxazole Allergy Unknown RASH Verified 03/20/23 19:39 [From BACTRIM] sulfasalazine Allergy Unknown Rash Verified 03/20/23 19:39 trimethoprim [From BACTRIM] Allergy Unknown RASH Verified 03/20/23 19:39 iodine Allergy Hives Verified 03/20/23 19:39 medrol dose pack Allergy Severe face Uncoded 10/16/21 15:50 swelling DUST Allergy Unknown SINUS Uncoded 10/16/21 15:50 INFECTION bandaids Allergy Unknown Uncoded 10/16/21 15:50 contrast Allergy rash on Uncoded 10/16/21 15:50 face betamethasone dipropriate AdvReac Severe rash Uncoded 10/16/21 15:50 Assessment & Plan Assessment & Plan (1) Psychosis: Status: Acute Code(s): F29 - Unspecified psychosis not due to a substance or known physiological condition Plan Presents with paranoia and disorganized and impulsive behavior. Insight very limited. Hold on S12 (exp 04/16/23). Reports she will only consider medications if her team speak with her primary care provider. She did give permission to speak with her at [phone], cell number or the home telephone [phone]. 2/4: encourage med adherence Reason for continued inpatient stay Substantial Risk for: harm to others and inability to function Time Spent With Patient Time: Total time managing care of this patient today ____ minutes.
[2023-04-13] MEDS: Loratadine 10 MG TABLET PO (12:47)
[2023-04-13 18:00] VITALS: BP 108/56; PULSE 77; RESP 18; TEMP 36.2; O2SAT 94
[2023-04-14 06:00] VITALS: BP 154/65; PULSE 89; RESP 18; TEMP 36.3; O2SAT 94
--- NOTE | 2023-04-14 08:28 | HO.PSYCHPN ---
Subjective Subjective Date of Service: 04/14/23 Reason For Visit: Psychosis Subjective Notes: Conditional Voluntary Interim History: Pt slept about 6hrs. She reports she is here because of her , that there is no mental health concern with her. She denies SI/HI. She is hyperverbal, irritable when this teletypewriter installer tried to explain dx of Bipolar and need for medications. She has been intrusive towards peers, irritable with staff. Mental Status Exam Mental Status Exam Narrative: Appearance: wearing hospital gown, in bed, covered with blanket, disheveled, in NAD Behavior: suspicious Psychomotor: no agitation or retardation noted. Speech: clear, regular rate/rhythm/volume, spontaneous TP: circumstantial TC:paranoid delusions Mood: not well Affect: expansive SI: denies HI: denies AV/VH:none Delusions:suspicious towards others Memory/cog: alert, not oriented to situation Diagnostics Vital Signs (24Hr): Vital Signs - 24 hr 04/13/23 08:41 04/13/23 18:00 Temperature 97.4 F 97.2 F Pulse Rate 81 77 Respiratory Rate 16 18 Blood Pressure 124/60 108/56 L Pulse Oximetry 92 94 Oxygen Delivery Method Room Air Room Air BMI result Body Mass Index 37.1 Labs 04/10/23 11:33 04/13/23 06:08 Labs: Laboratory Results - last 48 hr 04/12/23 04/13/23 Unknown 06:08 Sodium 141 Potassium 4.4 D Chloride 106 Carbon Dioxide 29 Anion Gap 10 L BUN 18 H Creatinine 0.80 Estim Creat Clear Calc 73.0 Estimated GFR > 60 Fasting Glucose 102 H Estimat Average Glucose 117 Hemoglobin A1c % 5.7 Calcium 9.1 Total Bilirubin 0.4 AST 20 ALT 22 Alkaline Phosphatase 81 Total Protein 6.6 Albumin 3.7 Triglycerides 62 Cholesterol 150 LDL Cholesterol, Calc 99 HDL Cholesterol 39 L Vitamin B12 313 TSH 1.51 Medications Medications Current Medications Acetaminophen (Acetaminophen 325 Mg Tablet) 650 mg PO Q6H PRN PRN Reason: Headache/Pain Mild Scale (1-3) Al Hydroxide/Mg Hydroxide (Magnesium Hydrox/Alum Hydrox 30 Ml Oral.Susp) 30 ml PO Q6H PRN PRN Reason: Heartburn/Nausea Albuterol Sulfate (Albuterol Sulfate 90 Mcg 8 Gm Inhaler) 2 puff INHALE Q4H PRN PRN Reason: shortness of breath or wheezing Atorvastatin Calcium (Atorvastatin Calcium 10 Mg Tablet) 10 mg PO DAILY [facility] Last Admin: 04/13/23 08:44 Dose: 10 mg Benzonatate (Benzonatate 100 Mg Capsule) 100 mg PO TID PRN PRN Reason: cough Last Admin: 04/13/23 08:50 Dose: 100 mg Ezetimibe (Ezetimibe 10 Mg Tablet) 10 mg PO DAILY [facility] Last Admin: 04/13/23 08:44 Dose: 10 mg Epinephrine (Epinephrine 1 Mg/Ml Vial) 0.3 mg IM DAILY PRN PRN Reason: Allergic Reaction Hydroxyzine HCl (Hydroxyzine Hcl 25 Mg Tablet) 25 mg PO Q6H PRN PRN Reason: Anxiety Last Admin: 04/12/23 21:10 Dose: 25 mg Lidocaine (Lidocaine 4 % Patch Adh..Patch) 1 patch TRANSDERMA DAILY PRN PRN Reason: pain Loratadine (Loratadine 10 Mg Tablet) 10 mg PO DAILY@1200 [facility] Last Admin: 04/13/23 12:47 Dose: 10 mg Magnesium Hydroxide (Milk Of Magnesia 30 Ml Oral.Susp) 30 ml PO DAILY PRN PRN Reason: Constipation Risperidone (Risperidone 0.5 Mg Tablet) 0.5 mg PO BID [facility] Last Admin: 04/13/23 20:14 Dose: Not Given Trazodone HCl (Trazodone Hcl 50 Mg Tablet) 50 mg PO BEDTIME PRN PRN Reason: Insomnia Allergies Allergies Allergy/AdvReac Type Severity Reaction Status Date / Time cat dander Allergy Unknown Unknown Verified 03/20/23 19:39 ciprofloxacin Allergy Unknown gastritis Verified 03/20/23 19:39 gabapentin Allergy Unknown Anaphylaxis Verified 03/20/23 19:39 hornet venom [HORNETS] Allergy Unknown ANAPHYLACTI Verified 03/20/23 19:39 C latex Allergy Unknown Rash Verified 03/20/23 19:39 metronidazole Allergy Unknown GI distress Verified 03/20/23 19:39 pregabalin [From Lyrica] Allergy Unknown Angioedema Verified 03/20/23 19:39 sorbitol [SORBITOL] Allergy Unknown RASH Verified 03/20/23 19:39 sulfamethoxazole Allergy Unknown RASH Verified 03/20/23 19:39 [From BACTRIM] sulfasalazine Allergy Unknown Rash Verified 03/20/23 19:39 trimethoprim [From BACTRIM] Allergy Unknown RASH Verified 03/20/23 19:39 iodine Allergy Hives Verified 03/20/23 19:39 medrol dose pack Allergy Severe face Uncoded 10/16/21 15:50 swelling DUST Allergy Unknown SINUS Uncoded 10/16/21 15:50 INFECTION bandaids Allergy Unknown Uncoded 10/16/21 15:50 contrast Allergy rash on Uncoded 10/16/21 15:50 face betamethasone dipropriate AdvReac Severe rash Uncoded 10/16/21 15:50 Assessment & Plan Assessment & Plan (1) Bipolar disorder with psychotic features: Status: Acute Code(s): F31.9 - Bipolar disorder, unspecified Plan Mrs. Jackson is a 68 year-old woman who started having s/s of psychosis, over-expending, not sleeping for the past year. Medical work up to rule out other causes of psychosis and manic symptoms was completed outpatient. At this point she has consistently presented with s/s of mahnaz. Her case may be one of small percentage of women who develop Bipolar Disorder later in life. Presents with paranoia and disorganized and impulsive behavior. Insight very limited. Hold on S12 (exp 04/16/23). Reports she will only consider medications if her team speak with her primary care provider. She did give permission to speak with her at [phone], cell number or the home telephone [phone]. 04/13: encourage med adherence 04/14 started depakote and latuda for mood stabilization. Reason for continued inpatient stay Substantial Risk for: inability to function Time Spent With Patient Time: Total time managing care of this patient today ____ minutes.
[2023-04-14] MEDS: Atorvastatin Calcium 10 MG TABLET PO (10:38)
[2023-04-14] MEDS: Ezetimibe 10 MG TABLET PO (10:38)
[2023-04-14] MEDS: Albuterol Sulfate 90 MCG 8 GM INHALER 2 PUFF INHALE (10:41)
[2023-04-14] MEDS: Benzonatate 100 MG CAPSULE PO ×2 (10:45→21:10)
[2023-04-14] MEDS: Loratadine 10 MG TABLET PO (11:36)
--- NOTE | 2023-04-14 17:45 | PC.NURSE ---
Patient refused Latuda, Depakote and Risperidone stating she does not need these medications and that only her neurologist can prescribe medication for her.
[2023-04-14 18:00] VITALS: BP 122/64; PULSE 82; RESP 18; TEMP 35.8; O2SAT 93
[2023-04-15 08:52] VITALS: BP 124/67; PULSE 89; RESP 18; TEMP 36.3; O2SAT 93
[2023-04-15] MEDS: Atorvastatin Calcium 10 MG TABLET PO (09:33)
[2023-04-15] MEDS: Ezetimibe 10 MG TABLET PO (09:33)
--- NOTE | 2023-04-15 11:43 | HO.PSYCHPN ---
Subjective Subjective Date of Service: 04/15/23 Reason For Visit: Psychosis Subjective Notes: Conditional Voluntary and 3 Day Interim History: Pt slept about 6hrs. She continues to present as intrusive to peers. She also continues to report that she needs to go home to care for her who is disable. Met with pt and , reports pt increasingly more hostile and physically and verbally aggressive to him and he worries about his safety with her in this condition. She also reports she is worried about her leaving at night, increase over spending, no insight into behaviors nor symptoms and not seeking help outpatient. Review of Systems Review of Systems Yes all other systems are reviewed and are negative Mental Status Exam Mental Status Exam Narrative: Appearance: wearing hospital gown, in bed, covered with blanket, disheveled, in NAD Behavior: suspicious Psychomotor: no agitation or retardation noted. Speech: clear, regular rate/rhythm/volume, spontaneous TP: circumstantial TC:paranoid delusions Mood: not well Affect: expansive SI: denies HI: denies AV/VH:none Delusions:suspicious towards others Memory/cog: alert, not oriented to situation Diagnostics Vital Signs (24Hr): Vital Signs - 24 hr 04/14/23 18:00 04/15/23 08:52 Temperature 96.5 F L 97.3 F Pulse Rate 82 89 Respiratory Rate 18 18 Blood Pressure 122/64 124/67 Pulse Oximetry 93 93 Oxygen Delivery Method Room Air Room Air BMI result Body Mass Index 37.1 Labs 04/10/23 11:33 04/13/23 06:08 Medications Medications Current Medications Acetaminophen (Acetaminophen 325 Mg Tablet) 650 mg PO Q6H PRN PRN Reason: Headache/Pain Mild Scale (1-3) Al Hydroxide/Mg Hydroxide (Magnesium Hydrox/Alum Hydrox 30 Ml Oral.Susp) 30 ml PO Q6H PRN PRN Reason: Heartburn/Nausea Albuterol Sulfate (Albuterol Sulfate 90 Mcg 8 Gm Inhaler) 2 puff INHALE Q4H PRN PRN Reason: shortness of breath or wheezing Last Admin: 04/14/23 10:41 Dose: 2 puff Atorvastatin Calcium (Atorvastatin Calcium 10 Mg Tablet) 10 mg PO DAILY [facility] Last Admin: 04/15/23 09:33 Dose: 10 mg Benzonatate (Benzonatate 100 Mg Capsule) 100 mg PO TID PRN PRN Reason: cough Last Admin: 04/14/23 21:10 Dose: 100 mg Divalproex Sodium (Divalproex Sodium 500 Mg Tablet.Dr) 500 mg PO BID [facility] Last Admin: 04/15/23 09:34 Dose: Not Given Ezetimibe (Ezetimibe 10 Mg Tablet) 10 mg PO DAILY [facility] Last Admin: 04/15/23 09:33 Dose: 10 mg Epinephrine (Epinephrine 1 Mg/Ml Vial) 0.3 mg IM DAILY PRN PRN Reason: Allergic Reaction Hydroxyzine HCl (Hydroxyzine Hcl 25 Mg Tablet) 25 mg PO Q6H PRN PRN Reason: Anxiety Last Admin: 04/12/23 21:10 Dose: 25 mg Lidocaine (Lidocaine 4 % Patch Adh..Patch) 1 patch TRANSDERMA DAILY PRN PRN Reason: pain Loratadine (Loratadine 10 Mg Tablet) 10 mg PO DAILY@1200 [facility] Last Admin: 04/14/23 11:36 Dose: 10 mg Lurasidone HCl (Lurasidone Hcl 20 Mg Tablet) 20 mg PO DAILY@1700 [facility] Last Admin: 04/14/23 17:05 Dose: Not Given Magnesium Hydroxide (Milk Of Magnesia 30 Ml Oral.Susp) 30 ml PO DAILY PRN PRN Reason: Constipation Trazodone HCl (Trazodone Hcl 50 Mg Tablet) 50 mg PO BEDTIME PRN PRN Reason: Insomnia Allergies Allergies Allergy/AdvReac Type Severity Reaction Status Date / Time cat dander Allergy Unknown Unknown Verified 03/20/23 19:39 ciprofloxacin Allergy Unknown gastritis Verified 03/20/23 19:39 gabapentin Allergy Unknown Anaphylaxis Verified 03/20/23 19:39 hornet venom [HORNETS] Allergy Unknown ANAPHYLACTI Verified 03/20/23 19:39 C latex Allergy Unknown Rash Verified 03/20/23 19:39 metronidazole Allergy Unknown GI distress Verified 03/20/23 19:39 pregabalin [From Lyrica] Allergy Unknown Angioedema Verified 03/20/23 19:39 sorbitol [SORBITOL] Allergy Unknown RASH Verified 03/20/23 19:39 sulfamethoxazole Allergy Unknown RASH Verified 03/20/23 19:39 [From BACTRIM] sulfasalazine Allergy Unknown Rash Verified 03/20/23 19:39 trimethoprim [From BACTRIM] Allergy Unknown RASH Verified 03/20/23 19:39 iodine Allergy Hives Verified 03/20/23 19:39 medrol dose pack Allergy Severe face Uncoded 10/16/21 15:50 swelling DUST Allergy Unknown SINUS Uncoded 10/16/21 15:50 INFECTION bandaids Allergy Unknown Uncoded 10/16/21 15:50 contrast Allergy rash on Uncoded 10/16/21 15:50 face betamethasone dipropriate AdvReac Severe rash Uncoded 10/16/21 15:50 Assessment & Plan Assessment & Plan (1) Bipolar disorder with psychotic features: Status: Acute Code(s): F31.9 - Bipolar disorder, unspecified Plan Mrs. Jackson is a 68 year-old woman who started having s/s of psychosis, over-expending, not sleeping for the past year. Medical work up to rule out other causes of psychosis and manic symptoms was completed outpatient. At this point she has consistently presented with s/s of mahnaz. Her case may be one of small percentage of women who develop Bipolar Disorder later in life. Presents with paranoia and disorganized and impulsive behavior. Insight very limited. Hold on S12 (exp 04/16/23). Reports she will only consider medications if her team speak with her primary care provider. She did give permission to speak with her at [phone], cell number or the home telephone [phone]. 04/13: encourage med adherence 04/14 started depakote and latuda for mood stabilization. 04/15 continue current tx. She is currently declining meds. Pt informed that team plans to file for involuntary treatment. Reason for continued inpatient stay Substantial Risk for: inability to function Time Spent With Patient Time: Total time managing care of this patient today ____ minutes.
[2023-04-15] MEDS: Loratadine 10 MG TABLET PO (12:39)
[2023-04-15 20:00] VITALS: BP 157/67; PULSE 86; RESP 16; TEMP 36.3; O2SAT 95
[2023-04-15] MEDS: Divalproex Sodium 500 MG TABLET.DR PO (20:42)
[2023-04-16 08:00] VITALS: BP 144/67; PULSE 78; RESP 18; TEMP 36.2; O2SAT 96
[2023-04-16] MEDS: Ezetimibe 10 MG TABLET PO (09:07)
[2023-04-16] MEDS: Atorvastatin Calcium 10 MG TABLET PO (09:07)
[2023-04-16] MEDS: Loratadine 10 MG TABLET PO (13:00)
--- NOTE | 2023-04-16 16:38 | P.PNPSI_ITS ---
Subjective Subjective Date of Service: 04/16/23 Reason For Visit: Psychosis Subjective Notes: Section 7 Interim History: Pt slept about 6hrs. Pt requesting to be discharged, pt continues to report her needs her, when has expressed concern about his and her safety if she leaves hospital without treatment. She denies SI/HI. She reports several side effects with medication even though she did not take the medication. She is visible, intrusive at times. Review of Systems Review of Systems Yes all other systems are reviewed and are negative Mental Status Exam Mental Status Exam Narrative: Appearance: wearing hospital gown, in bed, covered with blanket, disheveled, in NAD Behavior: suspicious Psychomotor: no agitation or retardation noted. Speech: clear, regular rate/rhythm/volume, spontaneous TP: circumstantial TC:paranoid delusions Mood: not well Affect: expansive SI: denies HI: denies AV/VH:none Delusions:suspicious towards others Memory/cog: alert, not oriented to situation Diagnostics Vital Signs (24Hr): Vital Signs - 24 hr 04/15/23 20:00 04/16/23 08:00 Temperature 97.3 F 97.1 F Pulse Rate 86 78 Respiratory Rate 16 18 Blood Pressure 157/67 H 144/67 H Pulse Oximetry 95 96 Oxygen Delivery Method Room Air Room Air BMI result Body Mass Index 37.1 Labs 04/10/23 11:33 04/13/23 06:08 Medications Medications Current Medications Acetaminophen (Acetaminophen 325 Mg Tablet) 650 mg PO Q6H PRN PRN Reason: Headache/Pain Mild Scale (1-3) Al Hydroxide/Mg Hydroxide (Magnesium Hydrox/Alum Hydrox 30 Ml Oral.Susp) 30 ml PO Q6H PRN PRN Reason: Heartburn/Nausea Albuterol Sulfate (Albuterol Sulfate 90 Mcg 8 Gm Inhaler) 2 puff INHALE Q4H PRN PRN Reason: shortness of breath or wheezing Last Admin: 04/14/23 10:41 Dose: 2 puff Atorvastatin Calcium (Atorvastatin Calcium 10 Mg Tablet) 10 mg PO DAILY [facility] Last Admin: 04/16/23 09:07 Dose: 10 mg Benzonatate (Benzonatate 100 Mg Capsule) 100 mg PO TID PRN PRN Reason: cough Last Admin: 04/14/23 21:10 Dose: 100 mg Divalproex Sodium (Divalproex Sodium 500 Mg Tablet.Dr) 500 mg PO BID [facility] Last Admin: 04/16/23 09:17 Dose: Not Given Ezetimibe (Ezetimibe 10 Mg Tablet) 10 mg PO DAILY [facility] Last Admin: 04/16/23 09:07 Dose: 10 mg Epinephrine (Epinephrine 1 Mg/Ml Vial) 0.3 mg IM DAILY PRN PRN Reason: Allergic Reaction Hydroxyzine HCl (Hydroxyzine Hcl 25 Mg Tablet) 25 mg PO Q6H PRN PRN Reason: Anxiety Last Admin: 04/12/23 21:10 Dose: 25 mg Lidocaine (Lidocaine 4 % Patch Adh..Patch) 1 patch TRANSDERMA DAILY PRN PRN Reason: pain Loratadine (Loratadine 10 Mg Tablet) 10 mg PO DAILY@1200 [facility] Last Admin: 04/16/23 13:00 Dose: 10 mg Lurasidone HCl (Lurasidone Hcl 20 Mg Tablet) 20 mg PO DAILY@1700 [facility] Last Admin: 04/15/23 17:25 Dose: Not Given Magnesium Hydroxide (Milk Of Magnesia 30 Ml Oral.Susp) 30 ml PO DAILY PRN PRN Reason: Constipation Trazodone HCl (Trazodone Hcl 50 Mg Tablet) 50 mg PO BEDTIME PRN PRN Reason: Insomnia Allergies Allergies Allergy/AdvReac Type Severity Reaction Status Date / Time cat dander Allergy Unknown Unknown Verified 03/20/23 19:39 ciprofloxacin Allergy Unknown gastritis Verified 03/20/23 19:39 gabapentin Allergy Unknown Anaphylaxis Verified 03/20/23 19:39 hornet venom [HORNETS] Allergy Unknown ANAPHYLACTI Verified 03/20/23 19:39 C latex Allergy Unknown Rash Verified 03/20/23 19:39 metronidazole Allergy Unknown GI distress Verified 03/20/23 19:39 pregabalin [From Lyrica] Allergy Unknown Angioedema Verified 03/20/23 19:39 sorbitol [SORBITOL] Allergy Unknown RASH Verified 03/20/23 19:39 sulfamethoxazole Allergy Unknown RASH Verified 03/20/23 19:39 [From BACTRIM] sulfasalazine Allergy Unknown Rash Verified 03/20/23 19:39 trimethoprim [From BACTRIM] Allergy Unknown RASH Verified 03/20/23 19:39 iodine Allergy Hives Verified 03/20/23 19:39 medrol dose pack Allergy Severe face Uncoded 10/16/21 15:50 swelling DUST Allergy Unknown SINUS Uncoded 10/16/21 15:50 INFECTION bandaids Allergy Unknown Uncoded 10/16/21 15:50 contrast Allergy rash on Uncoded 10/16/21 15:50 face betamethasone dipropriate AdvReac Severe rash Uncoded 10/16/21 15:50 Assessment & Plan Assessment & Plan (1) Bipolar disorder with psychotic features: Status: Acute Code(s): F31.9 - Bipolar disorder, unspecified Plan Mrs. Jackson is a 68 year-old woman who started having s/s of psychosis, over- expending, not sleeping for the past year. Medical work up to rule out other causes of psychosis and manic symptoms was completed outpatient. At this point she has consistently presented with s/s of mahnaz. Her case may be one of small percentage of women who develop Bipolar Disorder later in life. Presents with paranoia and disorganized and impulsive behavior. Insight very limited. Hold on S12 (exp 04/16/23). Reports she will only consider medications if her team speak with her primary care provider. She did give permission to speak with her at [phone], cell number or the home telephone [phone]. 04/13: encourage med adherence 04/14 started depakote and latuda for mood stabilization. 04/15 continue current tx. She is currently declining meds. Pt informed that team plans to file for involuntary treatment. 04/16 continue tx. Reason for continued inpatient stay Substantial Risk for: inability to function Time Spent With Patient Time: Total time managing care of this patient today ____ minutes.
[2023-04-16 20:18] VITALS: BP 194/90; PULSE 75; RESP 16; TEMP 36.4; O2SAT 96
[2023-04-16] MEDS: Sodium Chloride 0.65 % Nasal 44 ML SPRBTL 1 SPRAY NOSTRIL-B (21:33)
[2023-04-16 21:37] VITALS: BP 144/67; PULSE 78
[2023-04-17] MEDS: Ezetimibe 10 MG TABLET PO (08:26)
[2023-04-17] MEDS: Atorvastatin Calcium 10 MG TABLET PO (08:26)
[2023-04-17 08:31] VITALS: BP 141/70; PULSE 87; RESP 16; TEMP 36.4; O2SAT 96
--- NOTE | 2023-04-17 10:00 | PC.NURSE ---
Patient continues to refuse all psych medications. SERVICE CAR DRIVER Hayley Pineda notified
--- NOTE | 2023-04-17 11:03 | HO.PSYCHPN ---
Subjective Subjective Date of Service: 04/17/23 Reason For Visit: Psychosis Subjective Notes: Section 7 Interim History: Pt continues to present as labile. She asks to be discharged. She also states that she is allergic to the medications even though she has not tried latuda and she had one dose of depakote. She continues to ask this chief underwriter to contact Dr. Salazar. This chief underwriter received this message via [employer] from Dr. Salazar: tell her you talked to me and that I strongly recommend that she take her meds as the doctors recommend. She has been, unfortunately, obsessed with me and stalking me with an average of 20 phone calls at every hour of the day and 10 to 20 emails on my personal email which she found and my cell phone. When confronted by my office staff, she says her phone is hacked, but then she leaves voice message like Hi Dr. Salazar, sorry wrong number. One text came at 1am phonesex Medication Compliance: No Side effects from medications: No Attending Groups: Intermittent Diagnostics Vital Signs (24Hr): Vital Signs - 24 hr 04/16/23 20:18 04/16/23 21:37 04/17/23 08:31 Temperature 97.5 F 97.5 F Pulse Rate 75 78 87 Respiratory Rate 16 16 Blood Pressure 194/90 H 144/67 H 141/70 H Pulse Oximetry 96 96 Oxygen Delivery Method Room Air Room Air BMI result Body Mass Index 37.1 Labs 04/10/23 11:33 04/13/23 06:08 Medications Medications Current Medications Acetaminophen (Acetaminophen 325 Mg Tablet) 650 mg PO Q6H PRN PRN Reason: Headache/Pain Mild Scale (1-3) Al Hydroxide/Mg Hydroxide (Magnesium Hydrox/Alum Hydrox 30 Ml Oral.Susp) 30 ml PO Q6H PRN PRN Reason: Heartburn/Nausea Albuterol Sulfate (Albuterol Sulfate 90 Mcg 8 Gm Inhaler) 2 puff INHALE Q4H PRN PRN Reason: shortness of breath or wheezing Last Admin: 04/14/23 10:41 Dose: 2 puff Atorvastatin Calcium (Atorvastatin Calcium 10 Mg Tablet) 10 mg PO DAILY [facility] Last Admin: 04/17/23 08:26 Dose: 10 mg Benzonatate (Benzonatate 100 Mg Capsule) 100 mg PO TID PRN PRN Reason: cough Last Admin: 04/14/23 21:10 Dose: 100 mg Divalproex Sodium (Divalproex Sodium 500 Mg Tablet.Dr) 500 mg PO BID [facility] Last Admin: 04/17/23 08:28 Dose: Not Given Ezetimibe (Ezetimibe 10 Mg Tablet) 10 mg PO DAILY [facility] Last Admin: 04/17/23 08:26 Dose: 10 mg Epinephrine (Epinephrine 1 Mg/Ml Vial) 0.3 mg IM DAILY PRN PRN Reason: Allergic Reaction Hydroxyzine HCl (Hydroxyzine Hcl 25 Mg Tablet) 25 mg PO Q6H PRN PRN Reason: Anxiety Last Admin: 04/12/23 21:10 Dose: 25 mg Lidocaine (Lidocaine 4 % Patch Adh..Patch) 1 patch TRANSDERMA DAILY PRN PRN Reason: pain Loratadine (Loratadine 10 Mg Tablet) 10 mg PO DAILY@1200 [facility] Last Admin: 04/16/23 13:00 Dose: 10 mg Lurasidone HCl (Lurasidone Hcl 20 Mg Tablet) 20 mg PO DAILY@1700 [facility] Last Admin: 04/16/23 17:55 Dose: Not Given Magnesium Hydroxide (Milk Of Magnesia 30 Ml Oral.Susp) 30 ml PO DAILY PRN PRN Reason: Constipation Sodium Chloride (Sodium Chloride 0.65 % Nasal 44 Ml Sprbtl) 1 spray NOSTRIL-B Q1H PRN PRN Reason: dry nares Last Admin: 04/16/23 21:33 Dose: 1 spray Trazodone HCl (Trazodone Hcl 50 Mg Tablet) 50 mg PO BEDTIME PRN PRN Reason: Insomnia Allergies Allergies Allergy/AdvReac Type Severity Reaction Status Date / Time cat dander Allergy Unknown Unknown Verified 03/20/23 19:39 ciprofloxacin Allergy Unknown gastritis Verified 03/20/23 19:39 gabapentin Allergy Unknown Anaphylaxis Verified 03/20/23 19:39 hornet venom [HORNETS] Allergy Unknown ANAPHYLACTI Verified 03/20/23 19:39 C latex Allergy Unknown Rash Verified 03/20/23 19:39 metronidazole Allergy Unknown GI distress Verified 03/20/23 19:39 pregabalin [From Lyrica] Allergy Unknown Angioedema Verified 03/20/23 19:39 sorbitol [SORBITOL] Allergy Unknown RASH Verified 03/20/23 19:39 sulfamethoxazole Allergy Unknown RASH Verified 03/20/23 19:39 [From BACTRIM] sulfasalazine Allergy Unknown Rash Verified 03/20/23 19:39 trimethoprim [From BACTRIM] Allergy Unknown RASH Verified 03/20/23 19:39 iodine Allergy Hives Verified 03/20/23 19:39 medrol dose pack Allergy Severe face Uncoded 10/16/21 15:50 swelling DUST Allergy Unknown SINUS Uncoded 10/16/21 15:50 INFECTION bandaids Allergy Unknown Uncoded 10/16/21 15:50 contrast Allergy rash on Uncoded 10/16/21 15:50 face betamethasone dipropriate AdvReac Severe rash Uncoded 10/16/21 15:50 Assessment & Plan Assessment & Plan (1) Bipolar disorder with psychotic features: Status: Acute Code(s): F31.9 - Bipolar disorder, unspecified Plan Mrs. Jackson is a 68 year-old woman who started having s/s of psychosis, over-expending, not sleeping for the past year. Medical work up to rule out other causes of psychosis and manic symptoms was completed outpatient. At this point she has consistently presented with s/s of mahnaz. Her case may be one of small percentage of women who develop Bipolar Disorder later in life. Presents with paranoia and disorganized and impulsive behavior. Insight very limited. Hold on S12 (exp 04/16/23). Reports she will only consider medications if her team speak with her primary care provider. She did give permission to speak with her at [phone], cell number or the home telephone [phone]. 04/13: encourage med adherence 04/14 started depakote and latuda for mood stabilization. 04/15 continue current tx. She is currently declining meds. Pt informed that team plans to file for involuntary treatment. 04/16 continue tx. 04/[address] Patient educated on: diagnosis and medication risk/benefits Informed Consent: does not understand Reason for continued inpatient stay Substantial Risk for: inability to function Time Spent With Patient Time: Total time managing care of this patient today ____ minutes.
[2023-04-17] MEDS: Loratadine 10 MG TABLET PO (12:59)
[2023-04-17 18:00] VITALS: BP 121/62; PULSE 96; RESP 18; TEMP 36.5; O2SAT 92
[2023-04-18 08:16] VITALS: BP 149/77; PULSE 88; RESP 17; TEMP 36.4; O2SAT 95
[2023-04-18] MEDS: Atorvastatin Calcium 10 MG TABLET PO (08:18)
[2023-04-18] MEDS: Ezetimibe 10 MG TABLET PO (08:18)
[2023-04-18] MEDS: Loratadine 10 MG TABLET PO (12:06)
--- NOTE | 2023-04-18 14:40 | PC.NURSE ---
Patient's came this morning for a visit in the sensory room. While walking by, patient and her approached this nurse. He had asked this nurse if his had taken any medications today. interrupted and stated to this nurse Tell him the truth, tell him the medications I took and tell him WHY I'm not taking the other ones . This was then explained to the ; this nurse informed him the medications Reyna had continued to refuse and why she was refusing them (as she requested me to do). During the conversation patient kept interrupting this nurse and getting agitated. She stated to her Tell this nurse that you don't hit me! Tell her! Later on in the afternoon, I approached Reyna in the [facility] and asked how she was doing. Patient then stated You better stay away from my . You are not allowed to speak to him and if you do I will report you and get my director of claims involved .
--- NOTE | 2023-04-18 17:08 | P.PNPSI_ITS ---
Subjective Subjective Date of Service: 04/18/23 Reason For Visit: Psychosis Subjective Notes: Section 7 Interim History: Pt continues to decline medications stating that she is allergic. Per nursing, pt at times intrusive with male peers, did attempt to grab one male peer's buttock and needed to be redirected by staff. This journalists and other writers shared concerns that her 's neurologist had about her recent attempts to reach out to him via email and phone calls and disturbing text message including phonesex. Pt states that she did send him a text message at 1am back in Feb, but she meant to say wrong man. Pt was somewhat tearful after and then ask for the medication. Medication Compliance: No Side effects from medications: No Attending Groups: Intermittent Review of Systems Review of Systems Yes all other systems are reviewed and are negative Mental Status Exam Mental Status Exam Narrative: Appearance: wearing hospital gown, in bed, covered with blanket, disheveled, in NAD Behavior: suspicious Psychomotor: no agitation or retardation noted. Speech: clear, regular rate/rhythm/volume, spontaneous TP: circumstantial TC:paranoid delusions Mood: not well Affect: expansive SI: denies HI: denies AV/VH:none Delusions:suspicious towards others Memory/cog: alert, not oriented to situation Diagnostics Vital Signs (24Hr): Vital Signs - 24 hr 04/17/23 18:00 04/18/23 08:16 Temperature 97.7 F 97.6 F Pulse Rate 96 88 Respiratory Rate 18 17 Blood Pressure 121/62 149/77 H Pulse Oximetry 92 95 Oxygen Delivery Method Room Air Room Air BMI result Body Mass Index 37.1 Labs 04/10/23 11:33 04/13/23 06:08 Medications Medications Current Medications Acetaminophen (Acetaminophen 325 Mg Tablet) 650 mg PO Q6H PRN PRN Reason: Headache/Pain Mild Scale (1-3) Al Hydroxide/Mg Hydroxide (Magnesium Hydrox/Alum Hydrox 30 Ml Oral.Susp) 30 ml PO Q6H PRN PRN Reason: Heartburn/Nausea Albuterol Sulfate (Albuterol Sulfate 90 Mcg 8 Gm Inhaler) 2 puff INHALE Q4H PRN PRN Reason: shortness of breath or wheezing Last Admin: 04/14/23 10:41 Dose: 2 puff Atorvastatin Calcium (Atorvastatin Calcium 10 Mg Tablet) 10 mg PO DAILY [facility] Last Admin: 04/18/23 08:18 Dose: 10 mg Benzonatate (Benzonatate 100 Mg Capsule) 100 mg PO TID PRN PRN Reason: cough Last Admin: 04/14/23 21:10 Dose: 100 mg Divalproex Sodium (Divalproex Sodium 500 Mg Tablet.Dr) 500 mg PO BID [facility] Last Admin: 04/18/23 08:20 Dose: Not Given Ezetimibe (Ezetimibe 10 Mg Tablet) 10 mg PO DAILY [facility] Last Admin: 04/18/23 08:18 Dose: 10 mg Epinephrine (Epinephrine 1 Mg/Ml Vial) 0.3 mg IM DAILY PRN PRN Reason: Allergic Reaction Hydroxyzine HCl (Hydroxyzine Hcl 25 Mg Tablet) 25 mg PO Q6H PRN PRN Reason: Anxiety Last Admin: 04/12/23 21:10 Dose: 25 mg Lidocaine (Lidocaine 4 % Patch Adh..Patch) 1 patch TRANSDERMA DAILY PRN PRN Reason: pain Loratadine (Loratadine 10 Mg Tablet) 10 mg PO DAILY@1200 [facility] Last Admin: 04/18/23 12:06 Dose: 10 mg Lurasidone HCl (Lurasidone Hcl 20 Mg Tablet) 20 mg PO DAILY@1700 [facility] Last Admin: 04/17/23 17:16 Dose: Not Given Magnesium Hydroxide (Milk Of Magnesia 30 Ml Oral.Susp) 30 ml PO DAILY PRN PRN Reason: Constipation Sodium Chloride (Sodium Chloride 0.65 % Nasal 44 Ml Sprbtl) 1 spray NOSTRIL-B Q1H PRN PRN Reason: dry nares Last Admin: 04/16/23 21:33 Dose: 1 spray Trazodone HCl (Trazodone Hcl 50 Mg Tablet) 50 mg PO BEDTIME PRN PRN Reason: Insomnia Allergies Allergies Allergy/AdvReac Type Severity Reaction Status Date / Time cat dander Allergy Unknown Unknown Verified 03/20/23 19:39 ciprofloxacin Allergy Unknown gastritis Verified 03/20/23 19:39 gabapentin Allergy Unknown Anaphylaxis Verified 03/20/23 19:39 hornet venom [HORNETS] Allergy Unknown ANAPHYLACTI Verified 03/20/23 19:39 C latex Allergy Unknown Rash Verified 03/20/23 19:39 metronidazole Allergy Unknown GI distress Verified 03/20/23 19:39 pregabalin [From Lyrica] Allergy Unknown Angioedema Verified 03/20/23 19:39 sorbitol [SORBITOL] Allergy Unknown RASH Verified 03/20/23 19:39 sulfamethoxazole Allergy Unknown RASH Verified 03/20/23 19:39 [From BACTRIM] sulfasalazine Allergy Unknown Rash Verified 03/20/23 19:39 trimethoprim [From BACTRIM] Allergy Unknown RASH Verified 03/20/23 19:39 iodine Allergy Hives Verified 03/20/23 19:39 medrol dose pack Allergy Severe face Uncoded 10/16/21 15:50 swelling DUST Allergy Unknown SINUS Uncoded 10/16/21 15:50 INFECTION bandaids Allergy Unknown Uncoded 10/16/21 15:50 contrast Allergy rash on Uncoded 10/16/21 15:50 face betamethasone dipropriate AdvReac Severe rash Uncoded 10/16/21 15:50 Assessment & Plan Assessment & Plan (1) Bipolar disorder with psychotic features: Status: Acute Code(s): F31.9 - Bipolar disorder, unspecified Plan Mrs. Jackson is a 68 year-old woman who started having s/s of psychosis, over- expending, not sleeping for the past year. Medical work up to rule out other causes of psychosis and manic symptoms was completed outpatient. At this point she has consistently presented with s/s of mahnaz. Her case may be one of small percentage of women who develop Bipolar Disorder later in life. Presents with paranoia and disorganized and impulsive behavior. Insight very limited. Hold on S12 (exp 04/16/23). Reports she will only consider medications if her team speak with her primary care provider. She did give permission to speak with her at [phone], cell number or the home telephone [phone]. 04/13: encourage med adherence 04/14 started depakote and latuda for mood stabilization. 04/15 continue current tx. She is currently declining meds. Pt informed that team plans to file for involuntary treatment. 04/16 continue tx. 04/[address]. 04/18 continue tx. Reason for continued inpatient stay Substantial Risk for: inability to function Time Spent With Patient Time: Total time managing care of this patient today ____ minutes.
[2023-04-18] MEDS: Lurasidone HCl 20 MG TABLET PO (17:16)
[2023-04-18 18:00] VITALS: BP 118/58; PULSE 73; RESP 18; TEMP 36.3; O2SAT 95
[2023-04-18] MEDS: Divalproex Sodium 500 MG TABLET.DR PO (21:13)
[2023-04-19] MEDS: Acetaminophen 325 MG TABLET 650 MG PO ×2 (02:00→20:46)
[2023-04-19 08:00] VITALS: BP 150/67; PULSE 91; RESP 18; TEMP 36.8; O2SAT 95
[2023-04-19] MEDS: Atorvastatin Calcium 10 MG TABLET PO (08:28)
[2023-04-19] MEDS: Ezetimibe 10 MG TABLET PO (08:28)
[2023-04-19] MEDS: Divalproex Sodium 500 MG TABLET.DR PO ×2 (08:28→20:46)
--- NOTE | 2023-04-19 10:25 | HO.PSYCHPN ---
Subjective Subjective Date of Service: 04/19/23 Reason For Visit: Psychosis Interim History: Pt seen, discussed with team who report improved medicine compliance. Pt very talkative and energetic today. Multiple subjects she addressed including need for a cane-she has asked her to bring one in, dry skin-states is bringing in special soap, needing to update legal documents, previous misunderstanding with her neurologist, and concern about scheduling of appointments prior to discharge. Denies pain, reports adequate sleep and intake. Medication Compliance: Yes Side effects from medications: No Attending Groups: Intermittent Review of Systems Acute medical concerns: No Medical Review of Systems: unchanged Review of Systems Review of Systems reports mobility issues, skin issues-response to hospital soap Mental Status Exam Mental Status Exam Patient Appearance: Appropriate Patient Orientation: Person and Place Level of Consciousness: Alert Patient Behavior: Talkative and Good Eye Contact Mood Description: Constricted Affect Description: Constricted Patient Cognition Impaired: Yes Ability to Follow Directions: Fair Speech Pattern: Spontaneous Speech and Pressured (mild) Memory Description: Remote Impaired Hallucinations: None Delusions: Not Present Thought Process: Distracted and Confusion Thought Content: positive for Flight of Ideas and positive for Perseveration Abnormal Motor Activity Signs and Symptoms: Restlessness Judgement: Poor Diagnostics Vital Signs (24Hr): Vital Signs - 24 hr 04/18/23 18:00 04/19/23 08:00 Temperature 97.3 F 98.2 F Pulse Rate 73 91 Respiratory Rate 18 18 Blood Pressure 118/58 L 150/67 H Pulse Oximetry 95 95 Oxygen Delivery Method Room Air Room Air BMI result Body Mass Index 37.1 Labs 04/10/23 11:33 04/13/23 06:08 Medications Medications Current Medications Acetaminophen (Acetaminophen 325 Mg Tablet) 650 mg PO Q6H PRN PRN Reason: Headache/Pain Mild Scale (1-3) Last Admin: 04/19/23 02:00 Dose: 650 mg Al Hydroxide/Mg Hydroxide (Magnesium Hydrox/Alum Hydrox 30 Ml Oral.Susp) 30 ml PO Q6H PRN PRN Reason: Heartburn/Nausea Albuterol Sulfate (Albuterol Sulfate 90 Mcg 8 Gm Inhaler) 2 puff INHALE Q4H PRN PRN Reason: shortness of breath or wheezing Last Admin: 04/14/23 10:41 Dose: 2 puff Atorvastatin Calcium (Atorvastatin Calcium 10 Mg Tablet) 10 mg PO DAILY [facility] Last Admin: 04/19/23 08:28 Dose: 10 mg Benzonatate (Benzonatate 100 Mg Capsule) 100 mg PO TID PRN PRN Reason: cough Last Admin: 04/14/23 21:10 Dose: 100 mg Divalproex Sodium (Divalproex Sodium 500 Mg Tablet.Dr) 500 mg PO BID [facility] Last Admin: 04/19/23 08:28 Dose: 500 mg Ezetimibe (Ezetimibe 10 Mg Tablet) 10 mg PO DAILY [facility] Last Admin: 04/19/23 08:28 Dose: 10 mg Epinephrine (Epinephrine 1 Mg/Ml Vial) 0.3 mg IM DAILY PRN PRN Reason: Allergic Reaction Hydroxyzine HCl (Hydroxyzine Hcl 25 Mg Tablet) 25 mg PO Q6H PRN PRN Reason: Anxiety Last Admin: 04/12/23 21:10 Dose: 25 mg Lidocaine (Lidocaine 4 % Patch Adh..Patch) 1 patch TRANSDERMA DAILY PRN PRN Reason: pain Loratadine (Loratadine 10 Mg Tablet) 10 mg PO DAILY@1200 [facility] Last Admin: 04/18/23 12:06 Dose: 10 mg Lurasidone HCl (Lurasidone Hcl 20 Mg Tablet) 20 mg PO DAILY@1700 [facility] Last Admin: 04/18/23 17:16 Dose: 20 mg Magnesium Hydroxide (Milk Of Magnesia 30 Ml Oral.Susp) 30 ml PO DAILY PRN PRN Reason: Constipation Sodium Chloride (Sodium Chloride 0.65 % Nasal 44 Ml Sprbtl) 1 spray NOSTRIL-B Q1H PRN PRN Reason: dry nares Last Admin: 04/16/23 21:33 Dose: 1 spray Trazodone HCl (Trazodone Hcl 50 Mg Tablet) 50 mg PO BEDTIME PRN PRN Reason: Insomnia Allergies Allergies Allergy/AdvReac Type Severity Reaction Status Date / Time cat dander Allergy Unknown Unknown Verified 03/20/23 19:39 ciprofloxacin Allergy Unknown gastritis Verified 03/20/23 19:39 gabapentin Allergy Unknown Anaphylaxis Verified 03/20/23 19:39 hornet venom [HORNETS] Allergy Unknown ANAPHYLACTI Verified 03/20/23 19:39 C latex Allergy Unknown Rash Verified 03/20/23 19:39 metronidazole Allergy Unknown GI distress Verified 03/20/23 19:39 pregabalin [From Lyrica] Allergy Unknown Angioedema Verified 03/20/23 19:39 sorbitol [SORBITOL] Allergy Unknown RASH Verified 03/20/23 19:39 sulfamethoxazole Allergy Unknown RASH Verified 03/20/23 19:39 [From BACTRIM] sulfasalazine Allergy Unknown Rash Verified 03/20/23 19:39 trimethoprim [From BACTRIM] Allergy Unknown RASH Verified 03/20/23 19:39 iodine Allergy Hives Verified 03/20/23 19:39 medrol dose pack Allergy Severe face Uncoded 10/16/21 15:50 swelling DUST Allergy Unknown SINUS Uncoded 10/16/21 15:50 INFECTION bandaids Allergy Unknown Uncoded 10/16/21 15:50 contrast Allergy rash on Uncoded 10/16/21 15:50 face betamethasone dipropriate AdvReac Severe rash Uncoded 10/16/21 15:50 Assessment & Plan Assessment & Plan (1) Bipolar disorder with psychotic features: Status: Acute Code(s): F31.9 - Bipolar disorder, unspecified Plan Mrs. Jackson is a 68 year-old woman who started having s/s of psychosis, over-expending, not sleeping for the past year. Medical work up to rule out other causes of psychosis and manic symptoms was completed outpatient. At this point she has consistently presented with s/s of mahnaz. Her case may be one of small percentage of women who develop Bipolar Disorder later in life. Presents with paranoia and disorganized and impulsive behavior. Insight very limited. Hold on S12 (exp 04/16/23). Reports she will only consider medications if her team speak with her primary care provider. She did give permission to speak with her at [phone], cell number or the home telephone [phone]. 04/13: encourage med adherence 04/14 started depakote and latuda for mood stabilization. 04/15 continue current tx. She is currently declining meds. Pt informed that team plans to file for involuntary treatment. 04/16 continue tx. 04/[address]. 04/18 continue tx. 04/19/23: Continue tx. Informed Consent: does not understand Reason for continued inpatient stay Substantial Risk for: rapid decompensation Time Spent With Patient Time: Total time managing care of this patient today ____ minutes.
[2023-04-19] MEDS: Loratadine 10 MG TABLET PO (11:11)
[2023-04-19] MEDS: Lurasidone HCl 20 MG TABLET PO (17:12)
[2023-04-19 18:00] VITALS: BP 154/70; PULSE 80; RESP 18; TEMP 36.6; O2SAT 95
[2023-04-19] MEDS: hydrOXYzine HCL 25 MG TABLET PO (20:46)
[2023-04-20 07:30] VITALS: BP 152/77; PULSE 84; RESP 18; TEMP 36.4; O2SAT 96
[2023-04-20] MEDS: Ezetimibe 10 MG TABLET PO (08:24)
[2023-04-20] MEDS: Divalproex Sodium 500 MG TABLET.DR PO ×2 (08:24→21:51)
[2023-04-20] MEDS: Atorvastatin Calcium 10 MG TABLET PO (08:24)
[2023-04-20] MEDS: Loratadine 10 MG TABLET PO (12:02)
--- NOTE | 2023-04-20 14:55 | PC.NURSE ---
Patient exhibiting disorganized and disruptive behavior. Very loud singing and excessive talking in the milieu to peers, staff and herself. Not redirectable. Denied IPAD use due to not being able to adhere to policy of staying in her room with it. Continues to be intrusive with peers.
[2023-04-20] MEDS: Lurasidone HCl 20 MG TABLET PO (17:12)
--- NOTE | 2023-04-20 17:41 | HO.PSYCHPN ---
Subjective Subjective Date of Service: 04/20/23 Reason For Visit: Psychosis Interim History: Pt seen, reviewed with team. Team reports agitation last evening. Pt reporting her room-mate went into her bed which team reports did not occur. Pt offered prn meds last evening, this a.m. reports they were too strong. Attending group today, attentive, appears to be participating. Active,in milieu, not appearing overmedicated when seen Medication Compliance: Yes Side effects from medications: No Attending Groups: Yes Review of Systems Acute medical concerns: No Medical Review of Systems: unchanged Review of Systems Review of Systems Perceptual alterations for the past two days, ? sx of medical issue emerging Mental Status Exam Mental Status Exam Patient Appearance: Appropriate Patient Orientation: Person and Place Level of Consciousness: Alert Patient Behavior: Talkative and Good Eye Contact Mood Description: Constricted Affect Description: Constricted Patient Cognition Impaired: Yes Ability to Follow Directions: Fair Speech Pattern: Spontaneous Speech and Pressured (mild) Memory Description: Remote Impaired Hallucinations: None Delusions: Not Present Thought Process: Distracted and Confusion Thought Content: positive for Flight of Ideas and positive for Perseveration Abnormal Motor Activity Signs and Symptoms: Restlessness Judgement: Poor Diagnostics Vital Signs (24Hr): Vital Signs - 24 hr 04/19/23 18:00 04/20/23 07:30 Temperature 97.9 F 97.6 F Pulse Rate 80 84 Respiratory Rate 18 18 Blood Pressure 154/70 H 152/77 H Pulse Oximetry 95 96 Oxygen Delivery Method Room Air Room Air BMI result Body Mass Index 37.1 Labs 04/10/23 11:33 04/13/23 06:08 Medications Medications Current Medications Acetaminophen (Acetaminophen 325 Mg Tablet) 650 mg PO Q6H PRN PRN Reason: Headache/Pain Mild Scale (1-3) Last Admin: 04/19/23 20:46 Dose: 650 mg Al Hydroxide/Mg Hydroxide (Magnesium Hydrox/Alum Hydrox 30 Ml Oral.Susp) 30 ml PO Q6H PRN PRN Reason: Heartburn/Nausea Albuterol Sulfate (Albuterol Sulfate 90 Mcg 8 Gm Inhaler) 2 puff INHALE Q4H PRN PRN Reason: shortness of breath or wheezing Last Admin: 04/14/23 10:41 Dose: 2 puff Atorvastatin Calcium (Atorvastatin Calcium 10 Mg Tablet) 10 mg PO DAILY [facility] Last Admin: 04/20/23 08:24 Dose: 10 mg Benzonatate (Benzonatate 100 Mg Capsule) 100 mg PO TID PRN PRN Reason: cough Last Admin: 04/14/23 21:10 Dose: 100 mg Divalproex Sodium (Divalproex Sodium 500 Mg Tablet.Dr) 500 mg PO BID [facility] Last Admin: 04/20/23 08:24 Dose: 500 mg Ezetimibe (Ezetimibe 10 Mg Tablet) 10 mg PO DAILY [facility] Last Admin: 04/20/23 08:24 Dose: 10 mg Epinephrine (Epinephrine 1 Mg/Ml Vial) 0.3 mg IM DAILY PRN PRN Reason: Allergic Reaction Hydroxyzine HCl (Hydroxyzine Hcl 25 Mg Tablet) 25 mg PO Q6H PRN PRN Reason: Anxiety Last Admin: 04/19/23 20:46 Dose: 25 mg Lidocaine (Lidocaine 4 % Patch Adh..Patch) 1 patch TRANSDERMA DAILY PRN PRN Reason: pain Loratadine (Loratadine 10 Mg Tablet) 10 mg PO DAILY@1200 [facility] Last Admin: 04/20/23 12:02 Dose: 10 mg Lurasidone HCl (Lurasidone Hcl 20 Mg Tablet) 20 mg PO DAILY@1700 [facility] Last Admin: 04/20/23 17:12 Dose: 20 mg Magnesium Hydroxide (Milk Of Magnesia 30 Ml Oral.Susp) 30 ml PO DAILY PRN PRN Reason: Constipation Sodium Chloride (Sodium Chloride 0.65 % Nasal 44 Ml Sprbtl) 1 spray NOSTRIL-B Q1H PRN PRN Reason: dry nares Last Admin: 04/16/23 21:33 Dose: 1 spray Trazodone HCl (Trazodone Hcl 50 Mg Tablet) 50 mg PO BEDTIME PRN PRN Reason: Insomnia Allergies Allergies Allergy/AdvReac Type Severity Reaction Status Date / Time cat dander Allergy Unknown Unknown Verified 03/20/23 19:39 ciprofloxacin Allergy Unknown gastritis Verified 03/20/23 19:39 gabapentin Allergy Unknown Anaphylaxis Verified 03/20/23 19:39 hornet venom [HORNETS] Allergy Unknown ANAPHYLACTI Verified 03/20/23 19:39 C latex Allergy Unknown Rash Verified 03/20/23 19:39 metronidazole Allergy Unknown GI distress Verified 03/20/23 19:39 pregabalin [From Lyrica] Allergy Unknown Angioedema Verified 03/20/23 19:39 sorbitol [SORBITOL] Allergy Unknown RASH Verified 03/20/23 19:39 sulfamethoxazole Allergy Unknown RASH Verified 03/20/23 19:39 [From BACTRIM] sulfasalazine Allergy Unknown Rash Verified 03/20/23 19:39 trimethoprim [From BACTRIM] Allergy Unknown RASH Verified 03/20/23 19:39 iodine Allergy Hives Verified 03/20/23 19:39 medrol dose pack Allergy Severe face Uncoded 10/16/21 15:50 swelling DUST Allergy Unknown SINUS Uncoded 10/16/21 15:50 INFECTION bandaids Allergy Unknown Uncoded 10/16/21 15:50 contrast Allergy rash on Uncoded 10/16/21 15:50 face betamethasone dipropriate AdvReac Severe rash Uncoded 10/16/21 15:50 Assessment & Plan Assessment & Plan (1) Bipolar disorder with psychotic features: Status: Acute Code(s): F31.9 - Bipolar disorder, unspecified Plan Mrs. Jackson is a 68 year-old woman who started having s/s of psychosis, over-expending, not sleeping for the past year. Medical work up to rule out other causes of psychosis and manic symptoms was completed outpatient. At this point she has consistently presented with s/s of mahnaz. Her case may be one of small percentage of women who develop Bipolar Disorder later in life. Presents with paranoia and disorganized and impulsive behavior. Insight very limited. Hold on S12 (exp 04/16/23). Reports she will only consider medications if her team speak with her primary care provider. She did give permission to speak with her at [phone], cell number or the home telephone [phone]. 04/13: encourage med adherence 04/14 started depakote and latuda for mood stabilization. 04/15 continue current tx. She is currently declining meds. Pt informed that team plans to file for involuntary treatment. 04/16 continue tx. 04/[address]. 04/18 continue tx. 04/19/23: Continue tx. 04/20/23: Continue tx. Reason for continued inpatient stay Substantial Risk for: rapid decompensation Time Spent With Patient Time: Total time managing care of this patient today ____ minutes.
[2023-04-20 18:00] VITALS: BP 128/58; PULSE 94; RESP 18; TEMP 36.1; O2SAT 94
[2023-04-21] MEDS: Sodium Chloride 0.65 % Nasal 44 ML SPRBTL 1 SPRAY NOSTRIL-B (00:27)
[2023-04-21 08:19] VITALS: BP 131/73; PULSE 106; RESP 15; TEMP 36.6; O2SAT 94
[2023-04-21] MEDS: Ezetimibe 10 MG TABLET PO (08:21)
[2023-04-21] MEDS: Atorvastatin Calcium 10 MG TABLET PO (08:21)
[2023-04-21] MEDS: Divalproex Sodium 500 MG TABLET.DR PO ×2 (08:21→19:42)
--- NOTE | 2023-04-21 08:42 | HO.PSYCHPN ---
Subjective Subjective Date of Service: 04/21/23 Reason For Visit: Psychosis Subjective Notes: Section 7 Interim History: Pt has been more consistent taking depakote and latuda. 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 Pt reminded that is very concern about her condition and that would rather have her back home when she is more stable. She also continues to report that it is neurologist, Dr. Salazar who is treating my neurosis, psychosis, again pt reminded that neurologist is not treating ehr psychiatric condition and that he has adviced pt to take medications as prescribed here on the unit. She denies SI/HI. Per nursing, pt continues to present at times intrusive with peers. Medication Compliance: Yes Side effects from medications: No Mental Status Exam Mental Status Exam Narrative: Appearance: wearing hospital gown, in bed, covered with blanket, disheveled, in NAD Behavior: suspicious Psychomotor: no agitation or retardation noted. Speech: clear, regular rate/rhythm/volume, spontaneous TP: circumstantial TC:paranoid delusions Mood: fine Affect: expansive SI: denies HI: denies AV/VH:none Delusions:suspicious towards others Memory/cog: alert, not oriented to situation Diagnostics Vital Signs (24Hr): Vital Signs - 24 hr 04/20/23 18:00 04/21/23 08:19 Temperature 96.9 F 97.9 F Pulse Rate 94 106 H Respiratory Rate 18 15 Blood Pressure 128/58 L 131/73 Pulse Oximetry 94 94 Oxygen Delivery Method Room Air Room Air BMI result Body Mass Index 37.1 Labs 04/10/23 11:33 04/13/23 06:08 Medications Medications Current Medications Acetaminophen (Acetaminophen 325 Mg Tablet) 650 mg PO Q6H PRN PRN Reason: Headache/Pain Mild Scale (1-3) Last Admin: 04/19/23 20:46 Dose: 650 mg Al Hydroxide/Mg Hydroxide (Magnesium Hydrox/Alum Hydrox 30 Ml Oral.Susp) 30 ml PO Q6H PRN PRN Reason: Heartburn/Nausea Albuterol Sulfate (Albuterol Sulfate 90 Mcg 8 Gm Inhaler) 2 puff INHALE Q4H PRN PRN Reason: shortness of breath or wheezing Last Admin: 04/14/23 10:41 Dose: 2 puff Atorvastatin Calcium (Atorvastatin Calcium 10 Mg Tablet) 10 mg PO DAILY [facility] Last Admin: 04/21/23 08:21 Dose: 10 mg Benzonatate (Benzonatate 100 Mg Capsule) 100 mg PO TID PRN PRN Reason: cough Last Admin: 04/14/23 21:10 Dose: 100 mg Divalproex Sodium (Divalproex Sodium 500 Mg Tablet.Dr) 500 mg PO BID [facility] Last Admin: 04/21/23 08:21 Dose: 500 mg Ezetimibe (Ezetimibe 10 Mg Tablet) 10 mg PO DAILY [facility] Last Admin: 04/21/23 08:21 Dose: 10 mg Epinephrine (Epinephrine 1 Mg/Ml Vial) 0.3 mg IM DAILY PRN PRN Reason: Allergic Reaction Hydroxyzine HCl (Hydroxyzine Hcl 25 Mg Tablet) 25 mg PO Q6H PRN PRN Reason: Anxiety Last Admin: 04/19/23 20:46 Dose: 25 mg Lidocaine (Lidocaine 4 % Patch Adh..Patch) 1 patch TRANSDERMA DAILY PRN PRN Reason: pain Loratadine (Loratadine 10 Mg Tablet) 10 mg PO DAILY@1200 [facility] Last Admin: 04/20/23 12:02 Dose: 10 mg Lurasidone HCl (Lurasidone Hcl 20 Mg Tablet) 20 mg PO DAILY@1700 [facility] Last Admin: 04/20/23 17:12 Dose: 20 mg Magnesium Hydroxide (Milk Of Magnesia 30 Ml Oral.Susp) 30 ml PO DAILY PRN PRN Reason: Constipation Sodium Chloride (Sodium Chloride 0.65 % Nasal 44 Ml Sprbtl) 1 spray NOSTRIL-B Q1H PRN PRN Reason: dry nares Last Admin: 04/21/23 00:27 Dose: 1 spray Trazodone HCl (Trazodone Hcl 50 Mg Tablet) 50 mg PO BEDTIME PRN PRN Reason: Insomnia Allergies Allergies Allergy/AdvReac Type Severity Reaction Status Date / Time cat dander Allergy Unknown Unknown Verified 03/20/23 19:39 ciprofloxacin Allergy Unknown gastritis Verified 03/20/23 19:39 gabapentin Allergy Unknown Anaphylaxis Verified 03/20/23 19:39 hornet venom [HORNETS] Allergy Unknown ANAPHYLACTI Verified 03/20/23 19:39 C latex Allergy Unknown Rash Verified 03/20/23 19:39 metronidazole Allergy Unknown GI distress Verified 03/20/23 19:39 pregabalin [From Lyrica] Allergy Unknown Angioedema Verified 03/20/23 19:39 sorbitol [SORBITOL] Allergy Unknown RASH Verified 03/20/23 19:39 sulfamethoxazole Allergy Unknown RASH Verified 03/20/23 19:39 [From BACTRIM] sulfasalazine Allergy Unknown Rash Verified 03/20/23 19:39 trimethoprim [From BACTRIM] Allergy Unknown RASH Verified 03/20/23 19:39 iodine Allergy Hives Verified 03/20/23 19:39 medrol dose pack Allergy Severe face Uncoded 10/16/21 15:50 swelling DUST Allergy Unknown SINUS Uncoded 10/16/21 15:50 INFECTION bandaids Allergy Unknown Uncoded 10/16/21 15:50 contrast Allergy rash on Uncoded 10/16/21 15:50 face betamethasone dipropriate AdvReac Severe rash Uncoded 10/16/21 15:50 Assessment & Plan Assessment & Plan (1) Bipolar disorder with psychotic features: Status: Acute Code(s): F31.9 - Bipolar disorder, unspecified Plan Mrs. Jackson is a 68 year-old woman who started having s/s of psychosis, over-expending, not sleeping for the past year. Medical work up to rule out other causes of psychosis and manic symptoms was completed outpatient. At this point she has consistently presented with s/s of mahnaz. Her case may be one of small percentage of women who develop Bipolar Disorder later in life. Presents with paranoia and disorganized and impulsive behavior. Insight very limited. Hold on S12 (exp 04/16/23). Reports she will only consider medications if her team speak with her primary care provider. She did give permission to speak with her at [phone], cell number or the home telephone [phone]. 04/13: encourage med adherence 04/14 started depakote and latuda for mood stabilization. 04/15 continue current tx. She is currently declining meds. Pt informed that team plans to file for involuntary treatment. 04/16 continue tx. 04/[address]. 04/18 continue tx. 04/19/23: Continue tx. 04/20/23: Continue tx. 04/21 continue current medications. Reason for continued inpatient stay Substantial Risk for: inability to function Time Spent With Patient Time: Total time managing care of this patient today ____ minutes.
[2023-04-21] MEDS: Loratadine 10 MG TABLET PO (12:36)
[2023-04-21] MEDS: Lurasidone HCl 40 MG TABLET PO (16:59)
[2023-04-21 18:00] VITALS: BP 153/67; PULSE 92; RESP 18; TEMP 36.3; O2SAT 93
--- NOTE | 2023-04-22 09:08 | HO.PSYCHPN ---
Subjective Subjective Date of Service: 04/22/23 Reason For Visit: Psychosis Subjective Notes: Section 7 Interim History: Pt asks this continuity writer if I can explain difference between bipolar 1 and bipolar 2. She then asks which one she has, pt informed is bipolar 1. When describing symptoms of mahnaz: sexualized behaviors, erractic behaviors, decreased need for sleep, hyperverbal, flight of ideas, overspending... pt states oh I don't have those symptoms. Pt then reminded of events that led to this admission along with other reports. She has been taking medications more consistently, still needs reminders when having inappropriate boundaries with male peers. Medication Compliance: Yes Review of Systems Review of Systems Perceptual alterations for the past two days, ? sx of medical issue emerging Yes all other systems are reviewed and are negative Mental Status Exam Mental Status Exam Narrative: Appearance: wearing hospital gown, in bed, covered with blanket, disheveled, in NAD Behavior: suspicious Psychomotor: no agitation or retardation noted. Speech: clear, regular rate/rhythm/volume, spontaneous TP: circumstantial TC:paranoid delusions Mood: fine Affect: expansive SI: denies HI: denies AV/VH:none Delusions:suspicious towards others Memory/cog: alert, not oriented to situation Diagnostics Vital Signs (24Hr): Vital Signs - 24 hr 04/21/23 18:00 Temperature 97.3 F Pulse Rate 92 Respiratory Rate 18 Blood Pressure 153/67 H Pulse Oximetry 93 Oxygen Delivery Method Room Air BMI result Body Mass Index 37.1 Labs 04/10/23 11:33 04/13/23 06:08 Medications Medications Current Medications Acetaminophen (Acetaminophen 325 Mg Tablet) 650 mg PO Q6H PRN PRN Reason: Headache/Pain Mild Scale (1-3) Last Admin: 04/19/23 20:46 Dose: 650 mg Al Hydroxide/Mg Hydroxide (Magnesium Hydrox/Alum Hydrox 30 Ml Oral.Susp) 30 ml PO Q6H PRN PRN Reason: Heartburn/Nausea Albuterol Sulfate (Albuterol Sulfate 90 Mcg 8 Gm Inhaler) 2 puff INHALE Q4H PRN PRN Reason: shortness of breath or wheezing Last Admin: 04/14/23 10:41 Dose: 2 puff Atorvastatin Calcium (Atorvastatin Calcium 10 Mg Tablet) 10 mg PO DAILY [facility] Last Admin: 04/21/23 08:21 Dose: 10 mg Benzonatate (Benzonatate 100 Mg Capsule) 100 mg PO TID PRN PRN Reason: cough Last Admin: 04/14/23 21:10 Dose: 100 mg Divalproex Sodium (Divalproex Sodium 500 Mg Tablet.Dr) 500 mg PO BID [facility] [place] Last Admin: 04/21/23 19:42 Dose: 500 mg Ezetimibe (Ezetimibe 10 Mg Tablet) 10 mg PO DAILY [facility] [place] Last Admin: 04/21/23 08:21 Dose: 10 mg Epinephrine (Epinephrine 1 Mg/Ml Vial) 0.3 mg IM DAILY PRN PRN Reason: Allergic Reaction Hydroxyzine HCl (Hydroxyzine Hcl 25 Mg Tablet) 25 mg PO Q6H PRN PRN Reason: Anxiety Last Admin: 04/19/23 20:46 Dose: 25 mg Lidocaine (Lidocaine 4 % Patch Adh..Patch) 1 patch TRANSDERMA DAILY PRN PRN Reason: pain Loratadine (Loratadine 10 Mg Tablet) 10 mg PO DAILY@1200 [facility] [place] Last Admin: 04/21/23 12:36 Dose: 10 mg Lurasidone HCl (Lurasidone Hcl 40 Mg Tablet) 40 mg PO DAILY@1700 [facility] [place] Last Admin: 04/21/23 16:59 Dose: 40 mg Magnesium Hydroxide (Milk Of Magnesia 30 Ml Oral.Susp) 30 ml PO DAILY PRN PRN Reason: Constipation Sodium Chloride (Sodium Chloride 0.65 % Nasal 44 Ml Sprbtl) 1 spray NOSTRIL-B Q1H PRN PRN Reason: dry nares Last Admin: 04/21/23 00:27 Dose: 1 spray Trazodone HCl (Trazodone Hcl 50 Mg Tablet) 50 mg PO BEDTIME PRN PRN Reason: Insomnia Allergies Allergies Allergy/AdvReac Type Severity Reaction Status Date / Time cat dander Allergy Unknown Unknown Verified 03/20/23 19:39 ciprofloxacin Allergy Unknown gastritis Verified 03/20/23 19:39 gabapentin Allergy Unknown Anaphylaxis Verified 03/20/23 19:39 hornet venom [HORNETS] Allergy Unknown ANAPHYLACTI Verified 03/20/23 19:39 C latex Allergy Unknown Rash Verified 03/20/23 19:39 metronidazole Allergy Unknown GI distress Verified 03/20/23 19:39 pregabalin [From Lyrica] Allergy Unknown Angioedema Verified 03/20/23 19:39 sorbitol [SORBITOL] Allergy Unknown RASH Verified 03/20/23 19:39 sulfamethoxazole Allergy Unknown RASH Verified 03/20/23 19:39 [From BACTRIM] sulfasalazine Allergy Unknown Rash Verified 03/20/23 19:39 trimethoprim [From BACTRIM] Allergy Unknown RASH Verified 03/20/23 19:39 iodine Allergy Hives Verified 03/20/23 19:39 medrol dose pack Allergy Severe face Uncoded 10/16/21 15:50 swelling DUST Allergy Unknown SINUS Uncoded 10/16/21 15:50 INFECTION bandaids Allergy Unknown Uncoded 10/16/21 15:50 contrast Allergy rash on Uncoded 10/16/21 15:50 face betamethasone dipropriate AdvReac Severe rash Uncoded 10/16/21 15:50 Assessment & Plan Assessment & Plan (1) Bipolar disorder with psychotic features: Status: Acute Code(s): F31.9 - Bipolar disorder, unspecified Plan Mrs. Jackson is a 68 year-old woman who started having s/s of psychosis, over-expending, not sleeping for the past year. Medical work up to rule out other causes of psychosis and manic symptoms was completed outpatient. At this point she has consistently presented with s/s of mahnaz. Her case may be one of small percentage of women who develop Bipolar Disorder later in life. Presents with paranoia and disorganized and impulsive behavior. Insight very limited. Hold on S12 (exp 04/16/23). Reports she will only consider medications if her team speak with her primary care provider. She did give permission to speak with her at [phone], cell number or the home telephone [phone]. 04/13: encourage med adherence 04/14 started depakote and latuda for mood stabilization. 04/15 continue current tx. She is currently declining meds. Pt informed that team plans to file for involuntary treatment. 04/16 continue tx. 04/[address]. 04/18 continue tx. 04/19/23: Continue tx. 04/20/23: Continue tx. 04/21 continue current medications. 04/22 continue tx. Reason for continued inpatient stay Substantial Risk for: inability to function Time Spent With Patient Time: Total time managing care of this patient today ____ minutes.
[2023-04-22 10:10] VITALS: BP 152/70; PULSE 88; RESP 15; TEMP 36.7; O2SAT 94
[2023-04-22] MEDS: Divalproex Sodium 500 MG TABLET.DR PO ×2 (10:11→20:01)
[2023-04-22] MEDS: Atorvastatin Calcium 10 MG TABLET PO (10:11)
[2023-04-22] MEDS: Ezetimibe 10 MG TABLET PO (10:11)
[2023-04-22] MEDS: Loratadine 10 MG TABLET PO (12:07)
[2023-04-22] MEDS: Lurasidone HCl 40 MG TABLET PO (16:26)
[2023-04-22 18:00] VITALS: BP 128/57; PULSE 87; RESP 16; TEMP 36.1; O2SAT 95
[2023-04-23 08:35] VITALS: BP 143/73; PULSE 96; RESP 18; TEMP 35.9; O2SAT 92
[2023-04-23] MEDS: Divalproex Sodium 500 MG TABLET.DR PO ×2 (08:38→21:53)
[2023-04-23] MEDS: Loratadine 10 MG TABLET PO (08:38)
[2023-04-23] MEDS: Ezetimibe 10 MG TABLET PO (08:38)
[2023-04-23] MEDS: Atorvastatin Calcium 10 MG TABLET PO (08:38)
[2023-04-23] MEDS: Lurasidone HCl 40 MG TABLET PO (17:23)
[2023-04-23 18:00] VITALS: BP 138/66; PULSE 97; RESP 18; TEMP 35.7; O2SAT 94
--- NOTE | 2023-04-23 19:31 | P.PNPSI_ITS ---
Subjective Subjective Date of Service: 04/23/23 Reason For Visit: Psychosis Subjective Notes: Section 7 Interim History: pt slept most of the night. She appears calmer, less labile. She has continued taking the medications. We discussed to continue taking the medications and we could plan for d/c prior to court as she is doing better. No SI/HI. Review of Systems Review of Systems Perceptual alterations for the past two days, ? sx of medical issue emerging Yes all other systems are reviewed and are negative Mental Status Exam Mental Status Exam Narrative: Appearance: wearing hospital gown, in bed, covered with blanket, disheveled, in NAD Behavior: suspicious Psychomotor: no agitation or retardation noted. Speech: clear, regular rate/rhythm/volume, spontaneous TP: circumstantial TC:paranoid delusions Mood: fine Affect: expansive SI: denies HI: denies AV/VH:none Delusions:suspicious towards others Memory/cog: alert, not oriented to situation Diagnostics Vital Signs (24Hr): Vital Signs - 24 hr 04/23/23 08:35 Temperature 96.6 F L Pulse Rate 96 Respiratory Rate 18 Blood Pressure 143/73 H Pulse Oximetry 92 Oxygen Delivery Method Room Air BMI result Body Mass Index 37.1 Labs 04/10/23 11:33 04/13/23 06:08 Medications Medications Current Medications Acetaminophen (Acetaminophen 325 Mg Tablet) 650 mg PO Q6H PRN PRN Reason: Headache/Pain Mild Scale (1-3) Last Admin: 04/19/23 20:46 Dose: 650 mg Al Hydroxide/Mg Hydroxide (Magnesium Hydrox/Alum Hydrox 30 Ml Oral.Susp) 30 ml PO Q6H PRN PRN Reason: Heartburn/Nausea Albuterol Sulfate (Albuterol Sulfate 90 Mcg 8 Gm Inhaler) 2 puff INHALE Q4H PRN PRN Reason: shortness of breath or wheezing Last Admin: 04/14/23 10:41 Dose: 2 puff Atorvastatin Calcium (Atorvastatin Calcium 10 Mg Tablet) 10 mg PO DAILY [facility] Last Admin: 04/23/23 08:38 Dose: 10 mg Benzonatate (Benzonatate 100 Mg Capsule) 100 mg PO TID PRN PRN Reason: cough Last Admin: 04/14/23 21:10 Dose: 100 mg Divalproex Sodium (Divalproex Sodium 500 Mg Tablet.) 500 mg PO BID [facility] Last Admin: 04/23/23 08:38 Dose: 500 mg Ezetimibe (Ezetimibe 10 Mg Tablet) 10 mg PO DAILY [facility] Last Admin: 04/23/23 08:38 Dose: 10 mg Epinephrine (Epinephrine 1 Mg/Ml Vial) 0.3 mg IM DAILY PRN PRN Reason: Allergic Reaction Hydrocortisone (Hydrocortisone 1 % Cream 28.35 Gm Tube) 1 appl TOPICAL BID PRN; Protocol PRN Reason: pruritus Hydroxyzine HCl (Hydroxyzine Hcl 25 Mg Tablet) 25 mg PO Q6H PRN PRN Reason: Anxiety Last Admin: 04/19/23 20:46 Dose: 25 mg Lidocaine (Lidocaine 4 % Patch Adh..Patch) 1 patch TRANSDERMA DAILY PRN PRN Reason: pain Loratadine (Loratadine 10 Mg Tablet) 10 mg PO DAILY@1200 [facility] Last Admin: 04/23/23 08:38 Dose: 10 mg Lurasidone HCl (Lurasidone Hcl 40 Mg Tablet) 40 mg PO DAILY@1700 [facility] Last Admin: 04/23/23 17:23 Dose: 40 mg Magnesium Hydroxide (Milk Of Magnesia 30 Ml Oral.Susp) 30 ml PO DAILY PRN PRN Reason: Constipation Sodium Chloride (Sodium Chloride 0.65 % Nasal 44 Ml Sprbtl) 1 spray NOSTRIL-B Q1H PRN PRN Reason: dry nares Last Admin: 04/21/23 00:27 Dose: 1 spray Trazodone HCl (Trazodone Hcl 50 Mg Tablet) 50 mg PO BEDTIME PRN PRN Reason: Insomnia Allergies Allergies Allergy/AdvReac Type Severity Reaction Status Date / Time cat dander Allergy Unknown Unknown Verified 03/20/23 19:39 ciprofloxacin Allergy Unknown gastritis Verified 03/20/23 19:39 gabapentin Allergy Unknown Anaphylaxis Verified 03/20/23 19:39 hornet venom [HORNETS] Allergy Unknown ANAPHYLACTI Verified 03/20/23 19:39 C latex Allergy Unknown Rash Verified 03/20/23 19:39 metronidazole Allergy Unknown GI distress Verified 03/20/23 19:39 pregabalin [From Lyrica] Allergy Unknown Angioedema Verified 03/20/23 19:39 sorbitol [SORBITOL] Allergy Unknown RASH Verified 03/20/23 19:39 sulfamethoxazole Allergy Unknown RASH Verified 03/20/23 19:39 [From BACTRIM] sulfasalazine Allergy Unknown Rash Verified 03/20/23 19:39 trimethoprim [From BACTRIM] Allergy Unknown RASH Verified 03/20/23 19:39 iodine Allergy Hives Verified 03/20/23 19:39 medrol dose pack Allergy Severe face Uncoded 10/16/21 15:50 swelling DUST Allergy Unknown SINUS Uncoded 10/16/21 15:50 INFECTION bandaids Allergy Unknown Uncoded 10/16/21 15:50 contrast Allergy rash on Uncoded 10/16/21 15:50 face betamethasone dipropriate AdvReac Severe rash Uncoded 10/16/21 15:50 Assessment & Plan Assessment & Plan (1) Bipolar disorder with psychotic features: Status: Acute Code(s): F31.9 - Bipolar disorder, unspecified Plan Mrs. Jackson is a 68 year-old woman who started having s/s of psychosis, over- expending, not sleeping for the past year. Medical work up to rule out other causes of psychosis and manic symptoms was completed outpatient. At this point she has consistently presented with s/s of mahnaz. Her case may be one of small percentage of women who develop Bipolar Disorder later in life. Presents with paranoia and disorganized and impulsive behavior. Insight very limited. Hold on S12 (exp 04/16/23). Reports she will only consider medications if her team speak with her primary care provider. She did give permission to speak with her at [phone], cell number or the home telephone [phone]. 04/13: encourage med adherence 04/14 started depakote and latuda for mood stabilization. 04/15 continue current tx. She is currently declining meds. Pt informed that team plans to file for involuntary treatment. 04/16 continue tx. 04/[address] hearing. 04/18 continue tx. 04/19/23: Continue tx. 04/20/23: Continue tx. 04/21 continue current medications. 04/22 continue tx 04/23 continue tx. Reason for continued inpatient stay Substantial Risk for: inability to function Time Spent With Patient Time: Total time managing care of this patient today ____ minutes.
[2023-04-24 07:00] VITALS: BMI 38.6
[2023-04-24 07:49] VITALS: BP 144/67; PULSE 84; RESP 18; TEMP 36.1; O2SAT 95
[2023-04-24] MEDS: Atorvastatin Calcium 10 MG TABLET PO (08:40)
[2023-04-24] MEDS: Ezetimibe 10 MG TABLET PO (08:40)
[2023-04-24] MEDS: Hydrocortisone 1 % Cream 28.35 GM TUBE 1 APPL TOPICAL (08:40)
[2023-04-24] MEDS: Divalproex Sodium 500 MG TABLET.DR PO ×2 (08:40→20:53)
[2023-04-24] MEDS: Loratadine 10 MG TABLET PO (12:00)
--- NOTE | 2023-04-24 15:45 | P.PNPSI_ITS ---
Subjective Subjective Date of Service: 04/24/23 Reason For Visit: Psychosis Subjective Notes: Section 7 Interim History: pt slept most of the night. She appears calmer, less labile. She has continued taking the medications. She has been visible on the unit, less poor boundaries with males. She is also less irritable, more amenable to talk about her current medications, need for ongoing tx. No SI/HI. No aggression towards self or others. Review of Systems Review of Systems Perceptual alterations for the past two days, ? sx of medical issue emerging Yes all other systems are reviewed and are negative Mental Status Exam Mental Status Exam Narrative: Appearance: wearing hospital gown, in bed, covered with blanket, disheveled, in NAD Behavior: suspicious Psychomotor: no agitation or retardation noted. Speech: clear, regular rate/rhythm/volume, spontaneous TP: circumstantial TC:paranoid delusions Mood: fine Affect: expansive SI: denies HI: denies AV/VH:none Delusions:suspicious towards others Memory/cog: alert, not oriented to situation Diagnostics Vital Signs (24Hr): Vital Signs - 24 hr 04/23/23 18:00 04/24/23 07:49 Temperature 96.3 F L 96.9 F Pulse Rate 97 84 Respiratory Rate 18 18 Blood Pressure 138/66 144/67 H Pulse Oximetry 94 95 Oxygen Delivery Method Room Air Room Air BMI result Body Mass Index 38.6 Labs 04/10/23 11:33 04/13/23 06:08 Medications Medications Current Medications Acetaminophen (Acetaminophen 325 Mg Tablet) 650 mg PO Q6H PRN PRN Reason: Headache/Pain Mild Scale (1-3) Last Admin: 04/19/23 20:46 Dose: 650 mg Al Hydroxide/Mg Hydroxide (Magnesium Hydrox/Alum Hydrox 30 Ml Oral.Susp) 30 ml PO Q6H PRN PRN Reason: Heartburn/Nausea Albuterol Sulfate (Albuterol Sulfate 90 Mcg 8 Gm Inhaler) 2 puff INHALE Q4H PRN PRN Reason: shortness of breath or wheezing Last Admin: 04/14/23 10:41 Dose: 2 puff Atorvastatin Calcium (Atorvastatin Calcium 10 Mg Tablet) 10 mg PO DAILY [facility] Last Admin: 04/24/23 08:40 Dose: 10 mg Benzonatate (Benzonatate 100 Mg Capsule) 100 mg PO TID PRN PRN Reason: cough Last Admin: 04/14/23 21:10 Dose: 100 mg Divalproex Sodium (Divalproex Sodium 500 Mg Tablet.Dr) 500 mg PO BID [facility] Last Admin: 04/24/23 08:40 Dose: 500 mg Ezetimibe (Ezetimibe 10 Mg Tablet) 10 mg PO DAILY [facility] Last Admin: 04/24/23 08:40 Dose: 10 mg Epinephrine (Epinephrine 1 Mg/Ml Vial) 0.3 mg IM DAILY PRN PRN Reason: Allergic Reaction Hydrocortisone (Hydrocortisone 1 % Cream 28.35 Gm Tube) 1 appl TOPICAL BID PRN; Protocol PRN Reason: pruritus Last Admin: 04/24/23 08:40 Dose: 1 appl Hydroxyzine HCl (Hydroxyzine Hcl 25 Mg Tablet) 25 mg PO Q6H PRN PRN Reason: Anxiety Last Admin: 04/19/23 20:46 Dose: 25 mg Lidocaine (Lidocaine 4 % Patch Adh..Patch) 1 patch TRANSDERMA DAILY PRN PRN Reason: pain Loratadine (Loratadine 10 Mg Tablet) 10 mg PO DAILY@1200 [facility] Last Admin: 04/24/23 12:00 Dose: 10 mg Lurasidone HCl (Lurasidone Hcl 40 Mg Tablet) 40 mg PO DAILY@1700 [facility] Last Admin: 04/23/23 17:23 Dose: 40 mg Magnesium Hydroxide (Milk Of Magnesia 30 Ml Oral.Susp) 30 ml PO DAILY PRN PRN Reason: Constipation Sodium Chloride (Sodium Chloride 0.65 % Nasal 44 Ml Sprbtl) 1 spray NOSTRIL-B Q1H PRN PRN Reason: dry nares Last Admin: 04/21/23 00:27 Dose: 1 spray Trazodone HCl (Trazodone Hcl 50 Mg Tablet) 50 mg PO BEDTIME PRN PRN Reason: Insomnia Allergies Allergies Allergy/AdvReac Type Severity Reaction Status Date / Time cat dander Allergy Unknown Unknown Verified 03/20/23 19:39 ciprofloxacin Allergy Unknown gastritis Verified 03/20/23 19:39 gabapentin Allergy Unknown Anaphylaxis Verified 03/20/23 19:39 hornet venom [HORNETS] Allergy Unknown ANAPHYLACTI Verified 03/20/23 19:39 C latex Allergy Unknown Rash Verified 03/20/23 19:39 metronidazole Allergy Unknown GI distress Verified 03/20/23 19:39 pregabalin [From Lyrica] Allergy Unknown Angioedema Verified 03/20/23 19:39 sorbitol [SORBITOL] Allergy Unknown RASH Verified 03/20/23 19:39 sulfamethoxazole Allergy Unknown RASH Verified 03/20/23 19:39 [From BACTRIM] sulfasalazine Allergy Unknown Rash Verified 03/20/23 19:39 trimethoprim [From BACTRIM] Allergy Unknown RASH Verified 03/20/23 19:39 iodine Allergy Hives Verified 03/20/23 19:39 medrol dose pack Allergy Severe face Uncoded 10/16/21 15:50 swelling DUST Allergy Unknown SINUS Uncoded 10/16/21 15:50 INFECTION bandaids Allergy Unknown Uncoded 10/16/21 15:50 contrast Allergy rash on Uncoded 10/16/21 15:50 face betamethasone dipropriate AdvReac Severe rash Uncoded 10/16/21 15:50 Assessment & Plan Assessment & Plan (1) Bipolar disorder with psychotic features: Status: Acute Code(s): F31.9 - Bipolar disorder, unspecified Plan Mrs. Jackson is a 68 year-old woman who started having s/s of psychosis, over- expending, not sleeping for the past year. Medical work up to rule out other causes of psychosis and manic symptoms was completed outpatient. At this point she has consistently presented with s/s of mahnaz. Her case may be one of small percentage of women who develop Bipolar Disorder later in life. Presents with paranoia and disorganized and impulsive behavior. Insight very limited. Hold on S12 (exp 04/16/23). Reports she will only consider medications if her team speak with her primary care provider. She did give permission to speak with her at [phone], cell number or the home telephone [phone]. 04/13: encourage med adherence 04/14 started depakote and latuda for mood stabilization. 04/15 continue current tx. She is currently declining meds. Pt informed that team plans to file for involuntary treatment. 04/16 continue tx. 04/[address]. 04/18 continue tx. 04/19/23: Continue tx. 04/20/23: Continue tx. 04/21 continue current medications. 04/22 continue tx 04/23 continue tx. 04/24 increase latuda to 60mg with dinner. continue depakote, will check depakote level tomorrow. Reason for continued inpatient stay Substantial Risk for: inability to function Time Spent With Patient Time: Total time managing care of this patient today ____ minutes.
--- NOTE | 2023-04-24 17:06 | PC.NURSE ---
Declined to take 60mg of Latuda and would only take 40mg of Latuda; Hayley Garcia NP notified.
[2023-04-24] MEDS: Lurasidone HCl 20 MG TABLET 60 MG PO (17:44)
[2023-04-24 18:00] VITALS: BP 140/63; PULSE 88; RESP 18; TEMP 36; O2SAT 95
[2023-04-25] MEDS: Atorvastatin Calcium 10 MG TABLET PO (08:06)
[2023-04-25] MEDS: Divalproex Sodium 500 MG TABLET.DR PO ×2 (08:06→21:19)
[2023-04-25] MEDS: Ezetimibe 10 MG TABLET PO (08:06)
[2023-04-25 08:09] LABS: Valproate 68.6 mcg/mL (50.0-100.0)
--- NOTE | 2023-04-25 09:06 | HO.PSYCHPN ---
Subjective Subjective Date of Service: 04/25/23 Reason For Visit: Psychosis Subjective Notes: Section 7 Interim History: pt slept most of the night. She appears calmer, less labile. She reports she is doing well. She reports initially hesitant about taking higher dose of latuda, but finally agreed to do so. She denies any other concerns. She has been visible on the unit, social with select peers. No significant behavioral issues, she is looking forwards to be discharged next week. depakote levels today 68. Medication Compliance: Yes Review of Systems Review of Systems Perceptual alterations for the past two days, ? sx of medical issue emerging Yes all other systems are reviewed and are negative Mental Status Exam Mental Status Exam Narrative: Appearance: wearing hospital gown, in bed, covered with blanket, disheveled, in NAD Behavior: suspicious Psychomotor: no agitation or retardation noted. Speech: clear, regular rate/rhythm/volume, spontaneous TP: circumstantial TC:paranoid delusions Mood: fine Affect: expansive SI: denies HI: denies AV/VH:none Delusions:suspicious towards others Memory/cog: alert, not oriented to situation Diagnostics Vital Signs (24Hr): Vital Signs - 24 hr 04/24/23 18:00 Temperature 96.8 F Pulse Rate 88 Respiratory Rate 18 Blood Pressure 140/63 H Pulse Oximetry 95 Oxygen Delivery Method Room Air BMI result Body Mass Index 38.6 Labs 04/10/23 11:33 04/13/23 06:08 Labs: Laboratory Results - last 48 hr 04/25/23 07:48 Valproic Acid 68.6 Medications Medications Current Medications Acetaminophen (Acetaminophen 325 Mg Tablet) 650 mg PO Q6H PRN PRN Reason: Headache/Pain Mild Scale (1-3) Last Admin: 04/19/23 20:46 Dose: 650 mg Al Hydroxide/Mg Hydroxide (Magnesium Hydrox/Alum Hydrox 30 Ml Oral.Susp) 30 ml PO Q6H PRN PRN Reason: Heartburn/Nausea Albuterol Sulfate (Albuterol Sulfate 90 Mcg 8 Gm Inhaler) 2 puff INHALE Q4H PRN PRN Reason: shortness of breath or wheezing Last Admin: 04/14/23 10:41 Dose: 2 puff Atorvastatin Calcium (Atorvastatin Calcium 10 Mg Tablet) 10 mg PO DAILY [facility] Last Admin: 04/25/23 08:06 Dose: 10 mg Benzonatate (Benzonatate 100 Mg Capsule) 100 mg PO TID PRN PRN Reason: cough Last Admin: 04/14/23 21:10 Dose: 100 mg Divalproex Sodium (Divalproex Sodium 500 Mg Tablet.Dr) 500 mg PO BID [facility] Last Admin: 04/25/23 08:06 Dose: 500 mg Ezetimibe (Ezetimibe 10 Mg Tablet) 10 mg PO DAILY [facility] Last Admin: 04/25/23 08:06 Dose: 10 mg Epinephrine (Epinephrine 1 Mg/Ml Vial) 0.3 mg IM DAILY PRN PRN Reason: Allergic Reaction Hydrocortisone (Hydrocortisone 1 % Cream 28.35 Gm Tube) 1 appl TOPICAL BID PRN; Protocol PRN Reason: pruritus Last Admin: 04/24/23 08:40 Dose: 1 appl Hydroxyzine HCl (Hydroxyzine Hcl 25 Mg Tablet) 25 mg PO Q6H PRN PRN Reason: Anxiety Last Admin: 04/19/23 20:46 Dose: 25 mg Lidocaine (Lidocaine 4 % Patch Adh..Patch) 1 patch TRANSDERMA DAILY PRN PRN Reason: pain Loratadine (Loratadine 10 Mg Tablet) 10 mg PO DAILY@1200 [facility] Last Admin: 04/24/23 12:00 Dose: 10 mg Lurasidone HCl (Lurasidone Hcl 20 Mg Tablet) 60 mg PO DAILY@1700 [facility] Last Admin: 04/24/23 17:44 Dose: 60 mg Magnesium Hydroxide (Milk Of Magnesia 30 Ml Oral.Susp) 30 ml PO DAILY PRN PRN Reason: Constipation Sodium Chloride (Sodium Chloride 0.65 % Nasal 44 Ml Sprbtl) 1 spray NOSTRIL-B Q1H PRN PRN Reason: dry nares Last Admin: 04/21/23 00:27 Dose: 1 spray Trazodone HCl (Trazodone Hcl 50 Mg Tablet) 50 mg PO BEDTIME PRN PRN Reason: Insomnia Allergies Allergies Allergy/AdvReac Type Severity Reaction Status Date / Time cat dander Allergy Unknown Unknown Verified 03/20/23 19:39 ciprofloxacin Allergy Unknown gastritis Verified 03/20/23 19:39 gabapentin Allergy Unknown Anaphylaxis Verified 03/20/23 19:39 hornet venom [HORNETS] Allergy Unknown ANAPHYLACTI Verified 03/20/23 19:39 C latex Allergy Unknown Rash Verified 03/20/23 19:39 metronidazole Allergy Unknown GI distress Verified 03/20/23 19:39 pregabalin [From Lyrica] Allergy Unknown Angioedema Verified 03/20/23 19:39 sorbitol [SORBITOL] Allergy Unknown RASH Verified 03/20/23 19:39 sulfamethoxazole Allergy Unknown RASH Verified 03/20/23 19:39 [From BACTRIM] sulfasalazine Allergy Unknown Rash Verified 03/20/23 19:39 trimethoprim [From BACTRIM] Allergy Unknown RASH Verified 03/20/23 19:39 iodine Allergy Hives Verified 03/20/23 19:39 medrol dose pack Allergy Severe face Uncoded 10/16/21 15:50 swelling DUST Allergy Unknown SINUS Uncoded 10/16/21 15:50 INFECTION bandaids Allergy Unknown Uncoded 10/16/21 15:50 contrast Allergy rash on Uncoded 10/16/21 15:50 face betamethasone dipropriate AdvReac Severe rash Uncoded 10/16/21 15:50 Assessment & Plan Assessment & Plan (1) Bipolar disorder with psychotic features: Status: Acute Code(s): F31.9 - Bipolar disorder, unspecified Plan Mrs. Jackson is a 68 year-old woman who started having s/s of psychosis, over-expending, not sleeping for the past year. Medical work up to rule out other causes of psychosis and manic symptoms was completed outpatient. At this point she has consistently presented with s/s of mahnaz. Her case may be one of small percentage of women who develop Bipolar Disorder later in life. Presents with paranoia and disorganized and impulsive behavior. Insight very limited. Hold on S12 (exp 04/16/23). Reports she will only consider medications if her team speak with her primary care provider. She did give permission to speak with her at [phone], cell number or the home telephone [phone]. 04/13: encourage med adherence 04/14 started depakote and latuda for mood stabilization. 04/15 continue current tx. She is currently declining meds. Pt informed that team plans to file for involuntary treatment. 04/16 continue tx. 04/[address]. 04/18 continue tx. 04/19/23: Continue tx. 04/20/23: Continue tx. 04/21 continue current medications. 04/22 continue tx 04/23 continue tx. 04/24 increase latuda to 60mg with dinner. continue depakote, will check depakote level tomorrow. 04/25 continue tx. Reason for continued inpatient stay Substantial Risk for: inability to function Time Spent With Patient Time: Total time managing care of this patient today ____ minutes.
[2023-04-25 09:09] VITALS: BP 146/70; PULSE 101; RESP 18; TEMP 36.1; O2SAT 95
[2023-04-25] MEDS: Loratadine 10 MG TABLET PO (11:48)
[2023-04-25] MEDS: Lurasidone HCl 20 MG TABLET 60 MG PO (16:46)
[2023-04-25 21:18] VITALS: BP 136/62; PULSE 83; RESP 16; TEMP 36.6; O2SAT 92
[2023-04-26 08:15] VITALS: BP 129/64; PULSE 84; RESP 16; TEMP 35.9; O2SAT 96
[2023-04-26] MEDS: Divalproex Sodium 500 MG TABLET.DR PO ×2 (09:04→20:54)
[2023-04-26] MEDS: Ezetimibe 10 MG TABLET PO (09:04)
[2023-04-26] MEDS: Atorvastatin Calcium 10 MG TABLET PO (09:04)
[2023-04-26] MEDS: Loratadine 10 MG TABLET PO (12:24)
[2023-04-26] MEDS: Lurasidone HCl 20 MG TABLET 60 MG PO (16:40)
--- NOTE | 2023-04-26 17:18 | P.PNPSI_ITS ---
Subjective Subjective Date of Service: 04/26/23 Reason For Visit: Psychosis Subjective Notes: Conditional Voluntary Interim History: pt slept most of the night. She appears calmer, less labile. She has been visible on the unit, social with peers. No SI/HI. No overt delusional content noted or reported. taking medications as prescribed. Medication Compliance: Yes Review of Systems Review of Systems Perceptual alterations for the past two days, ? sx of medical issue emerging Yes all other systems are reviewed and are negative Mental Status Exam Mental Status Exam Narrative: Appearance: wearing hospital gown, in bed, covered with blanket, disheveled, in NAD Behavior: suspicious Psychomotor: no agitation or retardation noted. Speech: clear, regular rate/rhythm/volume, spontaneous TP: circumstantial TC:paranoid delusions Mood: fine Affect: expansive SI: denies HI: denies AV/VH:none Delusions:suspicious towards others Memory/cog: alert, not oriented to situation Diagnostics Vital Signs (24Hr): Vital Signs - 24 hr 04/25/23 21:18 Temperature 97.9 F Pulse Rate 83 Respiratory Rate 16 Blood Pressure 136/62 Pulse Oximetry 92 Oxygen Delivery Method Room Air BMI result Body Mass Index 38.6 Labs 04/10/23 11:33 04/13/23 06:08 Labs: Laboratory Results - last 48 hr 04/25/23 07:48 Valproic Acid 68.6 Medications Medications Current Medications Acetaminophen (Acetaminophen 325 Mg Tablet) 650 mg PO Q6H PRN PRN Reason: Headache/Pain Mild Scale (1-3) Last Admin: 04/19/23 20:46 Dose: 650 mg Al Hydroxide/Mg Hydroxide (Magnesium Hydrox/Alum Hydrox 30 Ml Oral.Susp) 30 ml PO Q6H PRN PRN Reason: Heartburn/Nausea Albuterol Sulfate (Albuterol Sulfate 90 Mcg 8 Gm Inhaler) 2 puff INHALE Q4H PRN PRN Reason: shortness of breath or wheezing Last Admin: 04/14/23 10:41 Dose: 2 puff Atorvastatin Calcium (Atorvastatin Calcium 10 Mg Tablet) 10 mg PO DAILY [facility] Last Admin: 04/26/23 09:04 Dose: 10 mg Benzonatate (Benzonatate 100 Mg Capsule) 100 mg PO TID PRN PRN Reason: cough Last Admin: 04/14/23 21:10 Dose: 100 mg Divalproex Sodium (Divalproex Sodium 500 Mg Tablet.Dr) 500 mg PO BID [facility] Last Admin: 04/26/23 09:04 Dose: 500 mg Ezetimibe (Ezetimibe 10 Mg Tablet) 10 mg PO DAILY [facility] Last Admin: 04/26/23 09:04 Dose: 10 mg Epinephrine (Epinephrine 1 Mg/Ml Vial) 0.3 mg IM DAILY PRN PRN Reason: Allergic Reaction Hydrocortisone (Hydrocortisone 1 % Cream 28.35 Gm Tube) 1 appl TOPICAL BID PRN; Protocol PRN Reason: pruritus Last Admin: 04/24/23 08:40 Dose: 1 appl Hydroxyzine HCl (Hydroxyzine Hcl 25 Mg Tablet) 25 mg PO Q6H PRN PRN Reason: Anxiety Last Admin: 04/19/23 20:46 Dose: 25 mg Lidocaine (Lidocaine 4 % Patch Adh..Patch) 1 patch TRANSDERMA DAILY PRN PRN Reason: pain Loratadine (Loratadine 10 Mg Tablet) 10 mg PO DAILY@1200 [facility] Last Admin: 04/26/23 12:24 Dose: 10 mg Lurasidone HCl (Lurasidone Hcl 20 Mg Tablet) 60 mg PO DAILY@1700 [facility] Last Admin: 04/26/23 16:40 Dose: 60 mg Magnesium Hydroxide (Milk Of Magnesia 30 Ml Oral.Susp) 30 ml PO DAILY PRN PRN Reason: Constipation Sodium Chloride (Sodium Chloride 0.65 % Nasal 44 Ml Sprbtl) 1 spray NOSTRIL-B Q1H PRN PRN Reason: dry nares Last Admin: 04/21/23 00:27 Dose: 1 spray Trazodone HCl (Trazodone Hcl 50 Mg Tablet) 50 mg PO BEDTIME PRN PRN Reason: Insomnia Allergies Allergies Allergy/AdvReac Type Severity Reaction Status Date / Time cat dander Allergy Unknown Unknown Verified 03/20/23 19:39 ciprofloxacin Allergy Unknown gastritis Verified 03/20/23 19:39 gabapentin Allergy Unknown Anaphylaxis Verified 03/20/23 19:39 hornet venom [HORNETS] Allergy Unknown ANAPHYLACTI Verified 03/20/23 19:39 C latex Allergy Unknown Rash Verified 03/20/23 19:39 metronidazole Allergy Unknown GI distress Verified 03/20/23 19:39 pregabalin [From Lyrica] Allergy Unknown Angioedema Verified 03/20/23 19:39 sorbitol [SORBITOL] Allergy Unknown RASH Verified 03/20/23 19:39 sulfamethoxazole Allergy Unknown RASH Verified 03/20/23 19:39 [From BACTRIM] sulfasalazine Allergy Unknown Rash Verified 03/20/23 19:39 trimethoprim [From BACTRIM] Allergy Unknown RASH Verified 03/20/23 19:39 iodine Allergy Hives Verified 03/20/23 19:39 medrol dose pack Allergy Severe face Uncoded 10/16/21 15:50 swelling DUST Allergy Unknown SINUS Uncoded 10/16/21 15:50 INFECTION bandaids Allergy Unknown Uncoded 10/16/21 15:50 contrast Allergy rash on Uncoded 10/16/21 15:50 face betamethasone dipropriate AdvReac Severe rash Uncoded 10/16/21 15:50 Assessment & Plan Assessment & Plan (1) Bipolar disorder with psychotic features: Status: Acute Code(s): F31.9 - Bipolar disorder, unspecified Plan Mrs. Jackson is a 68 year-old woman who started having s/s of psychosis, over- expending, not sleeping for the past year. Medical work up to rule out other causes of psychosis and manic symptoms was completed outpatient. At this point she has consistently presented with s/s of mahnaz. Her case may be one of small percentage of women who develop Bipolar Disorder later in life. Presents with paranoia and disorganized and impulsive behavior. Insight very limited. Hold on S12 (exp 04/16/23). Reports she will only consider medications if her team speak with her primary care provider. She did give permission to speak with her at [phone], cell number or the home telephone [phone]. 04/13: encourage med adherence 04/14 started depakote and latuda for mood stabilization. 04/15 continue current tx. She is currently declining meds. Pt informed that team plans to file for involuntary treatment. 04/16 continue tx. 04/[address] hearing. 04/18 continue tx. 04/19/23: Continue tx. 04/20/23: Continue tx. 04/21 continue current medications. 04/22 continue tx 04/23 continue tx. 04/24 increase latuda to 60mg with dinner. continue depakote, will check depakote level tomorrow. 04/25 continue tx. 04/26 continue tx. Reason for continued inpatient stay Substantial Risk for: inability to function Time Spent With Patient Time: Total time managing care of this patient today ____ minutes.
[2023-04-26 19:50] VITALS: BP 140/71; PULSE 94; RESP 18; TEMP 36.2; O2SAT 93
[2023-04-26] MEDS: Hydrocortisone 2.5 % Rectal Cr 30 GM TUBE 1 APPL PR (20:54)
[2023-04-27 07:45] VITALS: BP 133/63; PULSE 98; RESP 20; TEMP 36.6; O2SAT 98
[2023-04-27] MEDS: Ezetimibe 10 MG TABLET PO (08:42)
[2023-04-27] MEDS: Atorvastatin Calcium 10 MG TABLET PO (08:42)
[2023-04-27] MEDS: Divalproex Sodium 500 MG TABLET.DR PO ×2 (08:42→19:48)
[2023-04-27] MEDS: Loratadine 10 MG TABLET PO (13:34)
--- NOTE | 2023-04-27 15:31 | HO.PSYCHPN ---
Subjective Subjective Date of Service: 04/27/23 Reason For Visit: Psychosis Interim History: pt slept most of the night. She appears calmer, less labile. She has been visible on the unit, social with peers. No SI/HI. No overt delusional content noted or reported. taking medications as prescribed. Review of Systems Review of Systems Perceptual alterations for the past two days, ? sx of medical issue emerging Yes all other systems are reviewed and are negative Mental Status Exam Mental Status Exam Narrative: Appearance: wearing hospital gown, in bed, covered with blanket, disheveled, in NAD Behavior: suspicious Psychomotor: no agitation or retardation noted. Speech: clear, regular rate/rhythm/volume, spontaneous TP: circumstantial TC:paranoid delusions Mood: fine Affect: congruent, non labile SI: denies HI: denies AV/VH:none Delusions:none Memory/cog: alert, not oriented to situation Diagnostics Vital Signs (24Hr): Vital Signs - 24 hr 04/26/23 19:50 04/27/23 07:45 Temperature 97.2 F 97.8 F Pulse Rate 94 98 Respiratory Rate 18 20 Blood Pressure 140/71 H 133/63 Pulse Oximetry 93 98 Oxygen Delivery Method Room Air Room Air BMI result Body Mass Index 38.6 Labs 04/10/23 11:33 04/13/23 06:08 Medications Medications Current Medications Acetaminophen (Acetaminophen 325 Mg Tablet) 650 mg PO Q6H PRN PRN Reason: Headache/Pain Mild Scale (1-3) Last Admin: 04/19/23 20:46 Dose: 650 mg Al Hydroxide/Mg Hydroxide (Magnesium Hydrox/Alum Hydrox 30 Ml Oral.Susp) 30 ml PO Q6H PRN PRN Reason: Heartburn/Nausea Albuterol Sulfate (Albuterol Sulfate 90 Mcg 8 Gm Inhaler) 2 puff INHALE Q4H PRN PRN Reason: shortness of breath or wheezing Last Admin: 04/14/23 10:41 Dose: 2 puff Atorvastatin Calcium (Atorvastatin Calcium 10 Mg Tablet) 10 mg PO DAILY [facility] Last Admin: 04/27/23 08:42 Dose: 10 mg Benzonatate (Benzonatate 100 Mg Capsule) 100 mg PO TID PRN PRN Reason: cough Last Admin: 04/14/23 21:10 Dose: 100 mg Divalproex Sodium (Divalproex Sodium 500 Mg Tablet.) 500 mg PO BID [facility] Last Admin: 04/27/23 08:42 Dose: 500 mg Ezetimibe (Ezetimibe 10 Mg Tablet) 10 mg PO DAILY [facility] Last Admin: 04/27/23 08:42 Dose: 10 mg Epinephrine (Epinephrine 1 Mg/Ml Vial) 0.3 mg IM DAILY PRN PRN Reason: Allergic Reaction Hydrocortisone (Hydrocortisone 2.5 % Rectal Cr 30 Gm Tube) 1 appl TN BEDTIME [facility] [place] Last Admin: 04/26/23 20:54 Dose: 1 appl Hydroxyzine HCl (Hydroxyzine Hcl 25 Mg Tablet) 25 mg PO Q6H PRN PRN Reason: Anxiety Last Admin: 04/19/23 20:46 Dose: 25 mg Lidocaine (Lidocaine 4 % Patch Adh..Patch) 1 patch TRANSDERMA DAILY PRN PRN Reason: pain Loratadine (Loratadine 10 Mg Tablet) 10 mg PO DAILY@1200 [facility] [place] Last Admin: 04/27/23 13:34 Dose: 10 mg Lurasidone HCl (Lurasidone Hcl 20 Mg Tablet) 60 mg PO DAILY@1700 [facility] Last Admin: 04/26/23 16:40 Dose: 60 mg Magnesium Hydroxide (Milk Of Magnesia 30 Ml Oral.Susp) 30 ml PO DAILY PRN PRN Reason: Constipation Sodium Chloride (Sodium Chloride 0.65 % Nasal 44 Ml Sprbtl) 1 spray NOSTRIL-B Q1H PRN PRN Reason: dry nares Last Admin: 04/21/23 00:27 Dose: 1 spray Trazodone HCl (Trazodone Hcl 50 Mg Tablet) 50 mg PO BEDTIME PRN PRN Reason: Insomnia Allergies Allergies Allergy/AdvReac Type Severity Reaction Status Date / Time cat dander Allergy Unknown Unknown Verified 03/20/23 19:39 ciprofloxacin Allergy Unknown gastritis Verified 03/20/23 19:39 gabapentin Allergy Unknown Anaphylaxis Verified 03/20/23 19:39 hornet venom [HORNETS] Allergy Unknown ANAPHYLACTI Verified 03/20/23 19:39 C latex Allergy Unknown Rash Verified 03/20/23 19:39 metronidazole Allergy Unknown GI distress Verified 03/20/23 19:39 pregabalin [From Lyrica] Allergy Unknown Angioedema Verified 03/20/23 19:39 sorbitol [SORBITOL] Allergy Unknown RASH Verified 03/20/23 19:39 sulfamethoxazole Allergy Unknown RASH Verified 03/20/23 19:39 [From BACTRIM] sulfasalazine Allergy Unknown Rash Verified 03/20/23 19:39 trimethoprim [From BACTRIM] Allergy Unknown RASH Verified 03/20/23 19:39 iodine Allergy Hives Verified 03/20/23 19:39 medrol dose pack Allergy Severe face Uncoded 10/16/21 15:50 swelling DUST Allergy Unknown SINUS Uncoded 10/16/21 15:50 INFECTION bandaids Allergy Unknown Uncoded 10/16/21 15:50 contrast Allergy rash on Uncoded 10/16/21 15:50 face betamethasone dipropriate AdvReac Severe rash Uncoded 10/16/21 15:50 Assessment & Plan Assessment & Plan (1) Bipolar disorder with psychotic features: Status: Acute Code(s): F31.9 - Bipolar disorder, unspecified Plan Mrs. Jackson is a 68 year-old woman who started having s/s of psychosis, over-expending, not sleeping for the past year. Medical work up to rule out other causes of psychosis and manic symptoms was completed outpatient. At this point she has consistently presented with s/s of mahnaz. Her case may be one of small percentage of women who develop Bipolar Disorder later in life. Presents with paranoia and disorganized and impulsive behavior. Insight very limited. Hold on S12 (exp 04/16/23). Reports she will only consider medications if her team speak with her primary care provider. She did give permission to speak with her at [phone], cell number or the home telephone [phone]. 04/13: encourage med adherence 04/14 started depakote and latuda for mood stabilization. 04/15 continue current tx. She is currently declining meds. Pt informed that team plans to file for involuntary treatment. 04/16 continue tx. 04/[address]. 04/18 continue tx. 04/19/23: Continue tx. 04/20/23: Continue tx. 04/21 continue current medications. 04/22 continue tx 04/23 continue tx. 04/24 increase latuda to 60mg with dinner. continue depakote, will check depakote level tomorrow. 04/25 continue tx. 04/26 continue tx. 04/27 continue tx. Reason for continued inpatient stay Substantial Risk for: inability to function Time Spent With Patient Time: Total time managing care of this patient today ____ minutes.
[2023-04-27] MEDS: Lurasidone HCl 20 MG TABLET 60 MG PO (16:32)
[2023-04-27 18:00] VITALS: BP 145/65; PULSE 93; RESP 18; TEMP 36.3; O2SAT 93
[2023-04-27] MEDS: Hydrocortisone 2.5 % Rectal Cr 30 GM TUBE 1 APPL PR (19:49)
[2023-04-28 08:00] VITALS: BP 142/70; PULSE 88; RESP 18; TEMP 36.3; O2SAT 96
[2023-04-28] MEDS: Ezetimibe 10 MG TABLET PO (08:08)
[2023-04-28] MEDS: Atorvastatin Calcium 10 MG TABLET PO (08:08)
[2023-04-28] MEDS: Divalproex Sodium 500 MG TABLET.DR PO ×2 (08:08→21:15)
[2023-04-28] MEDS: Loratadine 10 MG TABLET PO (12:37)
[2023-04-28] MEDS: Lurasidone HCl 20 MG TABLET 60 MG PO (16:46)
[2023-04-28 18:00] VITALS: BP 137/69; PULSE 97; RESP 18; TEMP 36.6; O2SAT 95
--- NOTE | 2023-04-28 20:22 | HO.PSYCHPN ---
Subjective Subjective Date of Service: 04/28/23 Reason For Visit: Psychosis Subjective Notes: Section 7 Interim History: pt slept most of the night. She appears calmer, less labile. She has been visible on the unit, social with peers. No SI/HI. No overt delusional content noted or reported. taking medications as prescribed. reported hemorroids- ordered hydrocortisone [place] Review of Systems Review of Systems Perceptual alterations for the past two days, ? sx of medical issue emerging Yes all other systems are reviewed and are negative Mental Status Exam Mental Status Exam Narrative: Appearance: wearing hospital gown, in bed, covered with blanket, disheveled, in NAD Behavior: suspicious Psychomotor: no agitation or retardation noted. Speech: clear, regular rate/rhythm/volume, spontaneous TP: circumstantial TC:paranoid delusions Mood: fine Affect: congruent, non labile SI: denies HI: denies AV/VH:none Delusions:none Memory/cog: alert, not oriented to situation Diagnostics Vital Signs (24Hr): Vital Signs - 24 hr 04/28/23 08:00 Temperature 97.4 F Pulse Rate 88 Respiratory Rate 18 Blood Pressure 142/70 H Pulse Oximetry 96 Oxygen Delivery Method Room Air BMI result Body Mass Index 38.6 Labs 04/10/23 11:33 04/13/23 06:08 Medications Medications Current Medications Acetaminophen (Acetaminophen 325 Mg Tablet) 650 mg PO Q6H PRN PRN Reason: Headache/Pain Mild Scale (1-3) Last Admin: 04/19/23 20:46 Dose: 650 mg Al Hydroxide/Mg Hydroxide (Magnesium Hydrox/Alum Hydrox 30 Ml Oral.Susp) 30 ml PO Q6H PRN PRN Reason: Heartburn/Nausea Albuterol Sulfate (Albuterol Sulfate 90 Mcg 8 Gm Inhaler) 2 puff INHALE Q4H PRN PRN Reason: shortness of breath or wheezing Last Admin: 04/14/23 10:41 Dose: 2 puff Atorvastatin Calcium (Atorvastatin Calcium 10 Mg Tablet) 10 mg PO DAILY [facility] Last Admin: 04/28/23 08:08 Dose: 10 mg Benzonatate (Benzonatate 100 Mg Capsule) 100 mg PO TID PRN PRN Reason: cough Last Admin: 04/14/23 21:10 Dose: 100 mg Divalproex Sodium (Divalproex Sodium 500 Mg Tablet.) 500 mg PO BID [facility] Last Admin: 04/28/23 08:08 Dose: 500 mg Ezetimibe (Ezetimibe 10 Mg Tablet) 10 mg PO DAILY [facility] Last Admin: 04/28/23 08:08 Dose: 10 mg Epinephrine (Epinephrine 1 Mg/Ml Vial) 0.3 mg IM DAILY PRN PRN Reason: Allergic Reaction Hydrocortisone (Hydrocortisone 2.5 % Rectal Cr 30 Gm Tube) 1 appl [place] BEDTIME [facility] Last Admin: 04/27/23 19:49 Dose: 1 appl Hydroxyzine HCl (Hydroxyzine Hcl 25 Mg Tablet) 25 mg PO Q6H PRN PRN Reason: Anxiety Last Admin: 04/19/23 20:46 Dose: 25 mg Lidocaine (Lidocaine 4 % Patch Adh..Patch) 1 patch TRANSDERMA DAILY PRN PRN Reason: pain Loratadine (Loratadine 10 Mg Tablet) 10 mg PO DAILY@1200 [facility] Last Admin: 04/28/23 12:37 Dose: 10 mg Lurasidone HCl (Lurasidone Hcl 20 Mg Tablet) 60 mg PO DAILY@1700 [facility] Last Admin: 04/28/23 16:46 Dose: 60 mg Magnesium Hydroxide (Milk Of Magnesia 30 Ml Oral.Susp) 30 ml PO DAILY PRN PRN Reason: Constipation Sodium Chloride (Sodium Chloride 0.65 % Nasal 44 Ml Sprbtl) 1 spray NOSTRIL-B Q1H PRN PRN Reason: dry nares Last Admin: 04/21/23 00:27 Dose: 1 spray Trazodone HCl (Trazodone Hcl 50 Mg Tablet) 50 mg PO BEDTIME PRN PRN Reason: Insomnia Allergies Allergies Allergy/AdvReac Type Severity Reaction Status Date / Time cat dander Allergy Unknown Unknown Verified 03/20/23 19:39 ciprofloxacin Allergy Unknown gastritis Verified 03/20/23 19:39 gabapentin Allergy Unknown Anaphylaxis Verified 03/20/23 19:39 hornet venom [HORNETS] Allergy Unknown ANAPHYLACTI Verified 03/20/23 19:39 C latex Allergy Unknown Rash Verified 03/20/23 19:39 metronidazole Allergy Unknown GI distress Verified 03/20/23 19:39 pregabalin [From Lyrica] Allergy Unknown Angioedema Verified 03/20/23 19:39 sorbitol [SORBITOL] Allergy Unknown RASH Verified 03/20/23 19:39 sulfamethoxazole Allergy Unknown RASH Verified 03/20/23 19:39 [From BACTRIM] sulfasalazine Allergy Unknown Rash Verified 03/20/23 19:39 trimethoprim [From BACTRIM] Allergy Unknown RASH Verified 03/20/23 19:39 iodine Allergy Hives Verified 03/20/23 19:39 medrol dose pack Allergy Severe face Uncoded 10/16/21 15:50 swelling DUST Allergy Unknown SINUS Uncoded 10/16/21 15:50 INFECTION bandaids Allergy Unknown Uncoded 10/16/21 15:50 contrast Allergy rash on Uncoded 10/16/21 15:50 face betamethasone dipropriate AdvReac Severe rash Uncoded 10/16/21 15:50 Assessment & Plan Assessment & Plan (1) Bipolar disorder with psychotic features: Status: Acute Code(s): F31.9 - Bipolar disorder, unspecified Plan Mrs. Jackson is a 68 year-old woman who started having s/s of psychosis, over-expending, not sleeping for the past year. Medical work up to rule out other causes of psychosis and manic symptoms was completed outpatient. At this point she has consistently presented with s/s of mahnaz. Her case may be one of small percentage of women who develop Bipolar Disorder later in life. Presents with paranoia and disorganized and impulsive behavior. Insight very limited. Hold on S12 (exp 04/16/23). Reports she will only consider medications if her team speak with her primary care provider. She did give permission to speak with her at [phone], cell number or the home telephone [phone]. 04/13: encourage med adherence 04/14 started depakote and latuda for mood stabilization. 04/15 continue current tx. She is currently declining meds. Pt informed that team plans to file for involuntary treatment. 04/16 continue tx. 04/[address]. 04/18 continue tx. 04/19/23: Continue tx. 04/20/23: Continue tx. 04/21 continue current medications. 04/22 continue tx 04/23 continue tx. 04/24 increase latuda to 60mg with dinner. continue depakote, will check depakote level tomorrow. 04/25 continue tx. 04/26 continue tx. 04/27 continue tx. hemorroids hydrocortisone NH ordered 04/28 continue tx. Reason for continued inpatient stay Substantial Risk for: inability to function Time Spent With Patient Time: Total time managing care of this patient today ____ minutes.
[2023-04-28] MEDS: Hydrocortisone 2.5 % Rectal Cr 30 GM TUBE 1 APPL PR (21:15)
--- NOTE | 2023-04-29 06:48 | PM.PSYDC ---
DS: Providers Provider Date of Service: 04/29/23 Date of admission: 04/11/23 13:34 Date of discharge: 04/29/23 Primary care physician: Sandra Cruz MD Discharging clinician: Hayley Garcia DS: Diagnosis Discharge Diagnosis (1) Bipolar disorder with psychotic features: Status: Acute DS: Medications Discharge Medications Home Medications: Previous Rx's Medication Instructions Recorded albuterol sulfate 90 mcg/actuation 1 inh inhalation QID PRN wheezing 04/29/23 aerosol inhaler #6.7 grams atorvastatin 10 mg tablet 10 mg PO DAILY #30 tabs 04/29/23 divalproex 500 mg tablet,delayed 500 mg PO BID #60 tabs 04/29/23 release epinephrine 1 mg/mL injection 1 mg subcut Q20M PRN anaphylaxis 04/29/23 solution #30 mL ezetimibe 10 mg tablet 10 mg PO DAILY #30 tabs 04/29/23 hydrocortisone 2.5 % topical cream 1 appl [place] BEDTIME PRN hemorrhoids 04/29/23 with perineal applicator #30 grams loratadine 10 mg tablet 10 mg PO DAILY@1200 #10 tabs 04/29/23 lurasidone 20 mg tablet (Latuda) 60 mg (3 x 20 mg) PO DAILY@1700 04/29/23 #30 tabs Mental Status Exam Mental Status Exam Narrative: Appearance: casually groomed, good hygiene, in NAD Behavior: cooperative Psychomotor: no agitation or retardation noted. Speech: clear, regular rate/rhythm/volume, spontaneous TP: linear TC:none Mood: fine Affect: congruent, non labile SI: denies HI: denies AV/VH:none Delusions:none Memory/cog: alert, oriented x 3. grossly intact to conversational testing. Data Data Completed and Pending Completed studies during hospitalization [Text1]: 04/25/23 07:48 Valproic Acid 68.6 DS: Summary Hospital Course Hospital Course: Mrs. Jackson is a 68 year-old woman who started having s/s of psychosis, over-spending, not sleeping for the past year. Medical work up to rule out other causes of psychosis and manic symptoms was completed outpatient. At this point she has consistently presented with s/s of mahnaz. Her case may be one of small percentage of women who develop Bipolar Disorder later in life. Utox is negative. On the unit, Mrs. Jackson presented with expansive mood, poor boundaries with males, poor sleep, irritable and labile. Further collateral information reveals that pt has been leaving the house in the middle of the night. She has gotten in stranger's cars. She has also sent inappropriate sexual texts to one of the providers of her . She declined initially any medication and had no insight into her symptoms and need for treatment. She later agreed to start depakote and latuda. Her affect gradually presented as less labile, less expansive. Her sleep improved. No SI/HI. She was visible on the unit and social with select peers. She did not have any side effects with medications. She was adviced to continue them. Collateral information gathered from the who came to visit her often and at time of discharged reported she appeared in much improved condition and ready for discharge. Status at Discharge Cognitive/behavioral status at discharge: Pt with brighter, less labile mood. No SI/HI. No VH/AH. Sleeping well. No aggression towards self or others. Functional status at discharge: independent ambulation Overall status at discharge: patient is progressing back to baseline Time Spent with Patient Time attestation: Total time managing care of this patient today _40___ minutes. Time spent: Greater than 30 minutes Discharge Plan Discharge Anticipated Discharge Date/Time: 04/29/23 06:38 Patient Disposition: Home, Self-Care Discharge Diagnosis: Bipolar Disorder type 1 Referrals: [facility] [Other] - 05/27/23 9:20 am (Your next appointment with your psychiatric provider at [facility] is scheduled for 05/27/23 at 9:20am at the [address] [place] [address] location. ) Colby Patino [facility] therapist [Other] - 05/14/23 9:45 am (Your next therapist appointment is scheduled for 05/14/23 at 9:45am at the [address] [place] [address] location. ) Sandra Cruz MD [Primary Care Provider] - 1 Week Discharge Medications: New loratadine 10 mg Tablet 10 mg PO DAILY@1200 Qty: 10 0RF albuterol sulfate 90 mcg/actuation HFA aerosol inhaler 1 inh inhalation QID PRN (Reason: wheezing) Qty: 6.7 0RF epinephrine 1 mg/mL solution 1 mg subcut Q20M PRN (Reason: anaphylaxis) Qty: 30 0RF Rx Instructions: for 2 doses atorvastatin 10 mg Tablet 10 mg PO DAILY Qty: 30 0RF divalproex 500 mg Tablet,Delayed Release (Dr/Ec) 500 mg PO BID Qty: 60 0RF ezetimibe 10 mg Tablet 10 mg PO DAILY Qty: 30 0RF lurasidone [Latuda] 20 mg Tablet 60 mg PO DAILY@1700 Qty: 30 0RF hydrocortisone 2.5 % cream with perineal applicator 1 appl [place] BEDTIME PRN (Reason: hemorrhoids) Qty: 30 0RF Discontinued epinephrine [EpiPen 2-Hebert] 0.3 mg/0.3 mL auto-injector 0.3 mg IM DIRECTED ezetimibe 10 mg tablet 1 tab PO DAILY loratadine 10 mg Tablet 10 mg PO DAILY@1200 Qty: 30 0RF benzonatate 100 mg capsule 100 mg PO TID PRN (Reason: cough) Qty: 14 0RF albuterol sulfate 90 mcg/actuation HFA aerosol inhaler 2 puff inhalation Q4-6H PRN (Reason: shortness of breath or wheezing) Qty: 6.7 0RF atorvastatin 10 mg tablet 10 mg PO DAILY lidocaine 5 % adhesive patch,medicated 1 patch topical DAILY PRN (Reason: pain) risperidone 0.5 mg tablet 0.5 mg PO BID 30 Days Qty: 60 0RF Patient Comments: pt states i take it as needed not every day. Discharge Orders: Discharge Order (Routine); Ordered 04/29/23 Ordered By: Hayley Garcia Diet: Regular diet Activity on Discharge: As tolerated Stand Alone Forms: Patient Portal Discharge page Care Plan Goals: 1. Maintain mood 2. No SI/HI 3. No impulsive/labile behaviors 4. No aggression towards self or others. Health Concerns: Follow up with PCP for routine care Plan of Treatment: 1. Take medications as prescribed 2. Go to nearest ED or call 911 in event of emergency Assessment: Pt with brighter, less labile mood. No SI/HI. No VH/AH. Sleeping well. No aggression towards self or others.
[2023-04-29 07:57] VITALS: BP 142/85; PULSE 109; RESP 17; TEMP 36.3; O2SAT 95
[2023-04-29] MEDS: Divalproex Sodium 500 MG TABLET.DR PO (07:59)
[2023-04-29] MEDS: Atorvastatin Calcium 10 MG TABLET PO (07:59)
[2023-04-29] MEDS: Ezetimibe 10 MG TABLET PO (07:59)
== END 2023-04-29 10:31 | disposition home or self-care (01) | DRG 885 ==
LOC: HO.ED 17:02 → HO.PGERI 04-11 13:49
PROVIDERS: Admitting Provider Social Worker; Emergency Provider Emergency Medicine; PCP Internal Medicine; Visit Provider Social Worker
DX: F31.9 Bipolar disorder, unspecified (principal); Z20.822 Contact with and (suspected) exposure to COVID-19; Z87.891 Personal history of nicotine dependence; Z91.041 Radiographic dye allergy status; Z91.040 Latex allergy status; Z79.899 Other long term (current) drug therapy
CPT/HCPCS: 36415; 80048; 80053; 80061; 80076; 80164; 80307; 81003; 82607; 83036; 84443; 85025; 87635; 93005; 99285; S9485

== ENCOUNTER → 2023-04-10 14:49 | Outpatient (BNV) | payer MEDICARE, SELFPAY | PROVIDERS: Emergency Provider Emergency Medicine; PCP Internal Medicine; Visit Provider Internal Medicine Cardiovascular Disease | DX: Z01.810 Encounter for preprocedural cardiovascular examination (principal) | CPT/HCPCS: 93010 ==

== ENCOUNTER → 2023-04-11 13:34 | Outpatient (BNV) | payer MEDICARE, SELFPAY | PROVIDERS: Admitting Provider Social Worker; Emergency Provider Emergency Medicine; PCP Internal Medicine; Visit Provider Psychiatry & Neurology Psychiatry | DX: F31.2 Bipolar disorder, current episode manic severe with psychotic features (principal) | CPT/HCPCS: 90792; 99231; 99232; 99239 ==

== ENCOUNTER 2023-05-07 08:26 | Outpatient (AMB) | payer MEDICARE, SELFPAY ==
--- NOTE | 2023-05-07 08:30 | A.OFFVIS_ITS ---
Intake Vital Signs 05/07/23 08:37 Height 5 ft 3 in Weight 212 lb BMI 37.6 BP 138/72 Blood Pressure Location Lt brachial Position Sitting Respiration 16 Pulse 85 Pulse Source Pulse Oximeter Pulse Oximetry (%) 96 Oxygen Delivery Method Room Air Intake Visit Reasons: Pain/confirm Allergies cat dander Allergy (Unknown, Verified 05/07/23 08:36) Unknown ciprofloxacin Allergy (Unknown, Verified 05/07/23 08:36) gastritis gabapentin Allergy (Unknown, Verified 05/07/23 08:36) Anaphylaxis hornet venom [HORNETS] Allergy (Unknown, Verified 05/07/23 08:36) ANAPHYLACTIC latex Allergy (Unknown, Verified 05/07/23 08:36) Rash metronidazole Allergy (Unknown, Verified 05/07/23 08:36) GI distress pregabalin [From Lyrica] Allergy (Unknown, Verified 05/07/23 08:36) Angioedema sorbitol [SORBITOL] Allergy (Unknown, Verified 05/07/23 08:36) RASH sulfamethoxazole [From BACTRIM] Allergy (Unknown, Verified 05/07/23 08:36) RASH sulfasalazine Allergy (Unknown, Verified 05/07/23 08:36) Rash trimethoprim [From BACTRIM] Allergy (Unknown, Verified 05/07/23 08:36) RASH iodine Allergy (Verified 05/07/23 08:36) Hives medrol dose pack Allergy (Severe, Uncoded 10/16/21 15:50) face swelling DUST Allergy (Unknown, Uncoded 10/16/21 15:50) SINUS INFECTION bandaids Allergy (Uncoded 10/16/21 15:50) Unknown contrast Allergy (Uncoded 10/16/21 15:50) rash on face betamethasone dipropriate Adverse Reaction (Severe, Uncoded 10/16/21 15:50) rash HPI HPI Comments History of Present Illness Details Reyna is in my office today for the follow-up and request to start her on ibuprofen 800 mg q.d. she also requests to send her for yet another physical therapy. I will do that as she requests. Denies any recent trauma, injury, or falls. She has pain in the lower back with radiation into the left buttock and left lower leg posteriorly in L5-S1 distribution. This is is accompanied and tingling of left lower extremity into her ankle and toes. Pain is aggravated by prolonged walking, sitting, standing, prevents her to have a good night sleep. Patient would like to return to physical therapy. I will send her for physical therapy again. I discussed with the patient risks of taking high dose of ibupr ofen including risk of kidney injury, risk of bleeding, risk of stroke and risk of heart attack. Patient understood and expressed continues desire to prescribe 800 mg ibuprofen. She says that she will not take it more than once a day. She also understood to take this medication only when the pain is very severe, she also understood not to combine ibuprofen with other NSAIDs including diclofenac topical. Patient also continues to endorse chronic vulvodynia she wants to go for [facility] to have a pudendal nerve block. Ganglion impar worked for 3 days. The patient is allergic to multiple steroids the ganglion impar was done with ropivacaine only. Potentially chemical ablation of ganglion impar could be considered. She is in [facility], she is Ozempic patient and tries to lose weight with Ozempic. She does not want to consider bariatric surgery. She also reports pain in the neck with radiation into the left arm. PRIOR: Patient presents today via telehealth encounter to follow up for ongoing injection site pain and pain in the projection of her right hip that travels into her back and right groin pain since recent ganglion impar block on 10/09/21. She also endorses coccyx and rectal pain with sitting. Patient reports after ganglion impar procedure she fell into the chair with attempt to sit and has been having ongoing discomfort unrelieved with Tylenol or ice therapy. Due to chronic vulvudynia, she is unable to use Donut pillow to alleviate her pain. Patient reports small improvements as times goes and shares her frustration of undergoing diagnostic injection in the first place. She denies any fever, bleeding, warmth or pathological discharge from injection site. Patient also reports intermittent back pain symptoms with significant spasms. 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 Patient is not interested in pursuing formal PT or pelvic floor PT at this time as she is leaving for vacation in next 10-12 days. Patient is aware she can alternate Tylenol with Ibuprofen for mild to moderate pain as she is able to tolerate given GI sensitivity with medications and pursue physical therapy after vacation. We also discussed to update imaging related to her right hip, groin and coccyx/rectal pain. PRIOR: Patient presents today to follow up after ganglion impar block for the treatment of vulvodynia and clitoridynia on 10/09/[address] Manley. Due to betamethasone dipropriate and prednisone allergies as well as IV contrast allergy, she underwent diagnostic injection without steroids. Gadavist IV contrast was used for procedure and patient denies any side effects post procedure with this contrast. Patient reports she has 3 day significant pain relief but minimal analgesia spread around her clitoris area. She endorses significant effects of nerve block around her rectal area and vulva. Patient reports injection site tenderness and has been using ice therapy with partial relief. She reports pain in her lower back spreading into her upper buttocks areas bilaterally. She has preserved but limited lumbar ROM with mild pain given her most recent MRI readings as noted below. She is leaving on vacation next month and will hold off on any further interventional treatments and physical therapy until she returns back. Denies fever, malaise, weight changes, bowel/bladder incontinence or saddle anesthesia. Patient follows her [facility] provider Dr. Narayan Mason regularly for vulvodynia and is considering clitoris TPI to alleviate her chronic clitoridynia that affects her daily functioning and mobility. PRIOR: Patient returns today in the office to discuss lumbar spine MRI results. She is accompanied by her . Patient continues to endorse lower back pain that is now spreading across her back and into both hips laterally into her thigh, above the knee line, worse on the left side than right. She has stopped PT last month due to worsening of her back symptoms and increase in radiculopathy symptoms. Patient reports she has been continuing doing light HEP at home 2x/week. She reports ability to walk fro 20 minutes before she needs to rest or takes small breaks during walks and also notes breaks stops depend on the day. Patient reports she can tolerated prolong standing up to 25-30 minutes and can sit for 30 minutes before she needs to change position. She also reports increased back pain with pushing heavy objects, pushing heavy grocery cart, or reaching out in her refrigerator in forward bending position. 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 She reports frequent vulvodynia pain flare ups and is interested to proceed with ganglion impar nerve block. Patient is concerned about the procedure as she plans to go on vacation in November and is worried for any allergic reaction of nerve block. We discussed ganglion impar block procedure in detail and patient will notify our office by the end of this week with her decision. We discussed her lumbar spine MRI results today which showed at L4-L5 level, progressive spondylitic changes result in slightly worsening mild to moderate central canal stenosis, left greater than right subarticular zone stenosis with mild mass effect on the traversing left greater than right L5 nerve roots, and mild bilateral foraminal encroachment. Dorsal annular fissure at this level. At L5-S1, right and left lateral disc osteophyte protrusions continue to contact the extraforaminal L5 nerve roots bilaterally. Advanced bilateral facet arthropathy at this level. Patient has multi-level ligamentum flavum thickening at L3-L5. We have discussed lumbar GIBRAN injections, facet nerve blocks, medial branch blocks and MILD procedure. Patient would like to proceed with treating her vulvodynia pain initially and then lumbar pain. Patient denies any fever, malaise, weight changes, abdominal pain, numbness, bladder/bowel dysfunction or saddle anesthesia. She ambulates with normal gait without assisting devices. Reports occasional weakness in her lower extremities with increased lumbar spine pain. PRIOR: Patient is a pleasant 66 years old female with a history of left lumbar radiculopathy and facet arthritis presents today for evaluation of recurring chronic back pain, left hip and leg pain. Pain has started in 2016 for no apparent reason. She reports a recent left foot injury 2 weeks ago and states the left x-ray was normal. Patient reports her back pain is mostly axial with radiation to her left lower back and into her left hip and at times to left groin. Report her left leg gives out at times. MRI lumbar spine 05/2019 showed diffuse annular bulge at L3-L4 and L4-L5 with facet arthrosis and ligamentous laxity with potential left L5 nerve root compression. Pain is described as jumping, flashing, shooting, pinching, cramping, crushing, tingling, stinging, killing, tight, squeezing, and tearing. Her pain is worse during the day time and less severe at night time. She rates her pain at 9/10 with movements, walking, and weather changes. Pain is mildly alleviated with heat and ice packs. She tries to avoid all medication due to sensitivity related to IBS and many medication allergies, including gabapentin and lyrica. Patient reports completing PT, chiropractic manipulation and left hip injections for bursitis with good results. She is interested in restarting PT prior to interventional treatment options. Patient denies any fever, malaise, weight changes, abdominal pain, numbness, bladder/bowel dysfunction or saddle anesthesia. She reports intermittent weakness. Patient also reports she is suffering from vulvodynia pain which makes walking and exercises hard. Patient states she was on strong antibiotics in the past which caused her severe vaginal swelling, vaginal skin breakdown and turned into chronic pain. Patient reports her skin is restored but pain has not gone away. She reports constant burning, tingling, stinging, and dyspareunia. Patient is interested in nerve blocks to alleviate this pain. [facility] Medical History Vulvodynia Adjustment disorder with mixed anxiety and depressed mood Other screening mammogram IBS (irritable bowel syndrome) Depression GERD (gastroesophageal reflux disease) Hypercholesterolemia Lung nodule Proctalgia fugax Pelvic floor dysfunction Anal sphincter incompetence Gallstones Chronic bilateral low back pain without sciatica Acute allergic rhinitis Surgical History Hx of colonoscopy Hx of tonsillectomy Family History Mother Diabetes Pancreatic cancer Kidney problem Father Lung cancer Brother Peripheral vascular disease Brother CAD (coronary artery disease) Brother No problems noted. Sister Diabetes Sister Depression Maternal Grandmother Diabetes Hypertension Stroke Maternal Grandfather Lung disease Tuberculosis Other Colon cancer Ovarian cancer Stomach cancer Uterine cancer Social History Household Members: Spouse Housing: House Do you presently have visiting nurse or other home services: Yes (Housekeeping) Alcohol intake: never Comment: s1 Patient Tobacco Use Status: Former Tobacco user Quit Date: 2016 Tobacco use type: Cigarette Cigarette Packs Per Day: 0.5 Cigarettes Per Day: 10.0 Years Smoked: 45 e-Cigarette/Vaping Use: Never Used Second Hand Smoke Exposure: No Advance Directives Date on File: 10/10/21 service: No Sexual orientation: Straight/Heterosexual Review of Systems Const All systems reviewed & are unremarkable except as noted in HPI and below Physical Exam Vital Signs: Last Vital Signs Pulse 85 05/07/23 08:37 Resp 16 05/07/23 08:37 BP 138/72 05/07/23 08:37 Pulse Ox 96 05/07/23 08:37 Oxygen Delivery Method Room Air 05/07/23 08:37 BMI result Body Mass Index 37.6 General: Appears afebrile. Alert and oriented. Mood and affect appropriate. Follows and participates in conversation appropriately. Respiratory effort is unlabored. No cough. No nasal discharge. Able to transition from sit to stand unassisted. Ambulates with bilaterally normal heel strike and toe off. Back/Spine/Pelvis Cervical Spine: cervical ROM normal and No Cervical spine tenderness Thoracic/Lumbar Spine: thoracic and lumbar spine normal to inspection, Lasegue's sign positive on the left and diffuse, pain with thoraco-lumbar ROM, paraspinal muscle tenderness, No thoracic spinal tenderness and lumbar spinal tenderness Pelvis: buttock tenderness on the left and sciatic notch tenderness on the left Sacroiliac joints: bilaterally tender to palpation Assessment & Plan Assessment & Plan (1) Muscle spasm of back: Code(s): M62.830 - Muscle spasm of back (2) Lumbar radiculopathy: Code(s): M54.16 - Radiculopathy, lumbar region (3) Sacroiliac joint dysfunction: Code(s): M53.3 - Sacrococcygeal disorders, not elsewhere classified (4) Spondylosis of lumbar spine: Code(s): M47.816 - Spondylosis without myelopathy or radiculopathy, lumbar region (5) Chronic left hip pain: Code(s): M25.552 - Pain in left hip; G89.29 - Other chronic pain (6) Vulvodynia: Code(s): N94.819 - Vulvodynia, unspecified (7) Obesity (BMI 30-39.9): Code(s): E66.9 - Obesity, unspecified (8) Coccyx pain: Code(s): M53.3 - Sacrococcygeal disorders, not elsewhere classified (9) Right hip pain: Code(s): M25.551 - Pain in right hip (10) Neurogenic claudication due to lumbar spinal stenosis: Code(s): M48.062 - Spinal stenosis, lumbar region with neurogenic claudication (11) Spinal stenosis at L4-L5 level: Code(s): M48.061 - Spinal stenosis, lumbar region without neurogenic claudication Plan 1. Continue PT the order is placed. 2. Continue 10s unit. 3. Start ibuprofen 800 mg q.d. p.r.n. severe pain 7-10. Avoid taking ibuprofen if your pain is not severe. Avoid other NSAIDs such as diclofenac gel when take ibuprofen. 4. The patient will come to the office with application for the placard which will be signed and sent back to the patient. Orders: Orders PT Evaluation and Treatment Today E66.9 - Obesity, unspecified, M25.551 - Pain in right hip, M47.816 - Spondylosis without myelopathy or radiculopathy, lumbar region, M48.061 - Spinal stenosis, lumbar region without neurogenic claudication, M48.062 - Spinal stenosis, lumbar region with neurogenic claudication, M53.3 - Sacrococcygeal disorders, not elsewhere classified, M54.16 - Radiculopathy, lumbar region, M62.830 - Muscle spasm of back Medications: New ibuprofen 800 mg PO .Q.d. 30 days PRN 30 tabs 6RF pain (scale score 7-10) Coding Level of Care Code Est Pt Level 3 (46315) Diagnoses Muscle spasm of back M62.830 Lumbar radiculopathy M54.16 Sacroiliac joint dysfunction M53.3 Spondylosis of lumbar spine M47.816 Chronic left hip pain M25.552; G89.29 Vulvodynia N94.819 Obesity (BMI 30-39.9) E66.9 Coccyx pain M53.3 Right hip pain M25.551 Neurogenic claudication due to lumbar spinal stenosis M48.062 Spinal stenosis at L4-L5 level M48.061
[2023-05-07 08:37] VITALS: BP 138/72; PULSE 85; RESP 16; O2SAT 96; BMI 37.6
== END 2023-05-07 08:53 | disposition home or self-care (01) ==
PROVIDERS: PCP Internal Medicine; Visit Provider Anesthesiology
DX: M62.830 Muscle spasm of back (principal); M54.16 Radiculopathy, lumbar region; M53.3 Sacrococcygeal disorders, not elsewhere classified; M47.816 Spondylosis without myelopathy or radiculopathy, lumbar region; M25.552 Pain in left hip; G89.29 Other chronic pain; N94.819 Vulvodynia, unspecified; E66.9 Obesity, unspecified; M25.551 Pain in right hip; M48.062 Spinal stenosis, lumbar region with neurogenic claudication; M48.061 Spinal stenosis, lumbar region without neurogenic claudication
CPT/HCPCS: 99213

== ENCOUNTER → 2023-05-07 08:26 | Outpatient (BNVA) | payer MEDICARE, SELFPAY | PROVIDERS: PCP Internal Medicine; Visit Provider Anesthesiology | DX: M62.830 Muscle spasm of back (principal); M54.16 Radiculopathy, lumbar region; M53.3 Sacrococcygeal disorders, not elsewhere classified; M47.816 Spondylosis without myelopathy or radiculopathy, lumbar region; M25.552 Pain in left hip; M25.551 Pain in right hip; N94.819 Vulvodynia, unspecified; E66.9 Obesity, unspecified; M48.062 Spinal stenosis, lumbar region with neurogenic claudication; M48.061 Spinal stenosis, lumbar region without neurogenic claudication; G89.29 Other chronic pain | CPT/HCPCS: 99212 ==

== ENCOUNTER 2023-06-13 21:57 | Inpatient (IN) | payer MEDICARE, SELFPAY ==
[2023-06-13 22:17] VITALS: BP 168/70; PULSE 100; O2SAT 100
[2023-06-13 22:19] VITALS: BP 166/82; PULSE 95; RESP 18; TEMP 36.5; O2SAT 95; BMI 38.4
--- NOTE | 2023-06-13 22:31 | ED.PSYCH ---
HPI - Psych General Chief Complaint: Psychiatric Symptoms Stated Complaint: SECT.12, CONFUSED Time Seen by Provider: 06/13/23 22:07 Source: patient and EMS Mode of arrival: EMS Limitations: other (Erratic behavior) History of Present Illness HPI Narrative: Patient comes to the emergency room via ambulance. According to the EMS crew. 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 Her dropped her off around 11:00, patient had been there for almost 10 hours. Police department was called, asking the patient to return home. Patient refused to leave, PD called EMS. According to the EMS crew, patient was a bit aggressive and exhibiting psychotic behavior with police department. When EMS arrived, patient was calm and cooperative. Patient would not explain why she refused to leave. However, patient's nurse states that the patient admitted to drink wine earlier today. Here in the emergency room, patient is, cooperative, states that she does not know why she was brought to the emergency room. Patient requesting to have her Quran book back. Patient agreeable to laboratory workup. According to the patient's nurse, the patient's told EMS that patient has history of psychiatric disorders and has been decompensated. Related Data Home Medications ?Medication ?Instructions ?Recorded ?Confirmed semaglutide 2 mg/dose (8 mg/3 mL) mg subcut 05/07/23 subcutaneous pen injector (Ozempic) Previous Rx's ?Medication ?Instructions ?Recorded albuterol sulfate 90 mcg/actuation 1 inh inhalation QID PRN wheezing 04/29/23 aerosol inhaler #6.7 grams atorvastatin 10 mg tablet 10 mg PO DAILY #30 tabs 04/29/23 divalproex 500 mg tablet,delayed 500 mg PO BID #60 tabs 04/29/23 release epinephrine 1 mg/mL injection 1 mg subcut Q20M PRN anaphylaxis 04/29/23 solution #30 mL ezetimibe 10 mg tablet 10 mg PO DAILY #30 tabs 04/29/23 hydrocortisone 2.5 % topical cream 1 appl [place] BEDTIME PRN hemorrhoids 04/29/23 with perineal applicator #30 grams loratadine 10 mg tablet 10 mg PO DAILY@1200 #10 tabs 04/29/23 lurasidone 20 mg tablet (Latuda) 60 mg (3 x 20 mg) PO DAILY@1700 04/29/23 #30 tabs ibuprofen 800 mg tablet 800 mg PO .Q.d. PRN pain (scale 05/07/23 score 7-10) 30 days #30 tabs Allergies Allergy/AdvReac Type Severity Reaction Status Date / Time cat dander Allergy Unknown Unknown Verified 06/13/23 22:26 ciprofloxacin Allergy Unknown gastritis Verified 06/13/23 22:26 gabapentin Allergy Unknown Anaphylaxis Verified 06/13/23 22:26 hornet venom [HORNETS] Allergy Unknown ANAPHYLACTI Verified 06/13/23 22:26 C latex Allergy Unknown Rash Verified 06/13/23 22:26 metronidazole Allergy Unknown GI distress Verified 06/13/23 22:26 pregabalin [From Lyrica] Allergy Unknown Angioedema Verified 06/13/23 22:26 sorbitol [SORBITOL] Allergy Unknown RASH Verified 06/13/23 22:26 sulfamethoxazole Allergy Unknown RASH Verified 06/13/23 22:26 [From BACTRIM] sulfasalazine Allergy Unknown Rash Verified 06/13/23 22:26 trimethoprim [From BACTRIM] Allergy Unknown RASH Verified 06/13/23 22:26 iodine Allergy Hives Verified 06/13/23 22:26 medrol dose pack Allergy Severe face Uncoded 10/16/21 15:50 swelling DUST Allergy Unknown SINUS Uncoded 10/16/21 15:50 INFECTION bandaids Allergy Unknown Uncoded 10/16/21 15:50 contrast Allergy rash on Uncoded 10/16/21 15:50 face betamethasone dipropriate AdvReac Severe rash Uncoded 10/16/21 15:50 Review of Systems Review of Systems: Constitutional : No Weight loss, No Fever, No Chills, No Night Sweats, No Fatigue, No Malaise ENT/Mouth : No Hearing loss, No Ear Pain, No Nasal Congestion, No Sinus Pain, No Hoarseness, No sore throat, No Rhinorrhea, No Swallowing Difficulty Eyes: No Eye Pain, No Swelling, No Redness, No Foreign Body, No Discharge, No Vision Changes Cardiovascular : No Chest Pain, No SOB, No Dyspnea on Exertion, No Orthopnea, No Edema, No Palpitations Respiratory : No Cough, No Sputum, No Wheezing, No Smoke Exposure, No Dyspnea Gastrointestinal : No Nausea, No Vomiting, No Diarrhea, No Constipation, No abdominal Pain, No Hematochezia, No Melena Genitourinary : no irregular bleeding, No Dysuria, No Urinary Frequency, No Hematuria, No Urinary Incontinence, No Urgency, No Flank Pain, No Urinary Flow Changes, No Hesitancy Musculoskeletal : No joint pain, No Myalgias, No Joint Swelling Skin : No Skin Lesions, No rash Neuro : No Weakness, No Numbness, No Paresthesias, No Loss of Consciousness, No Dizziness, No Headache Psych : No Anxiety/Panic, No Depression, denies SI or HI, per bystanders, patient had erratic behavior Heme/Lymph: No Bruising, No Bleeding,No Lymphadenopathy Endocrine : No Polyuria, No Polydipsia, No Temperature Intolerance PMFSH Past Medical History Medical History Vulvodynia Adjustment disorder with mixed anxiety and depressed mood Other screening mammogram IBS (irritable bowel syndrome) Depression GERD (gastroesophageal reflux disease) Hypercholesterolemia Lung nodule Proctalgia fugax Pelvic floor dysfunction Anal sphincter incompetence Gallstones Chronic bilateral low back pain without sciatica Acute allergic rhinitis Surgical History Hx of colonoscopy Hx of tonsillectomy Family History Family History Mother Diabetes Pancreatic cancer Kidney problem Father Lung cancer Brother Peripheral vascular disease Brother CAD (coronary artery disease) Brother No problems noted. Sister Diabetes Sister Depression Maternal Grandmother Diabetes Hypertension Stroke Maternal Grandfather Lung disease Tuberculosis Other Colon cancer Ovarian cancer Stomach cancer Uterine cancer Social History Social History Household Members: Spouse Housing: House Do you presently have visiting nurse or other home services: Yes (Housekeeping) Alcohol intake: never Comment: s1 Patient Tobacco Use Status: Former Tobacco user Quit Date: 2016 Tobacco use type: Cigarette Cigarette Packs Per Day: 0.5 Cigarettes Per Day: 10.0 Years Smoked: 45 Smoked in Last 30 Days: Yes e-Cigarette/Vaping Use: Never Used Second Hand Smoke Exposure: No Use of substances other than those prescribed or required for medical reasons: No Advance Directives: Yes Advance Directives on File: Yes Advance Directives Date on File: 10/10/21 service: No Sexual orientation: Straight/Heterosexual Physical Exam Vital Signs: Vital Signs: Last Vital Signs Temp 97.7 F 06/13/23 22:19 Pulse 95 06/13/23 22:19 Resp 18 06/13/23 22:19 BP 166/82 H 06/13/23 22:19 Pulse Ox 95 06/13/23 22:19 O2 Del Method Room Air 06/13/23 22:19 BMI result Body Mass Index 38.4 Const: Other: Appearance: Alert. Oriented X3. No acute distress. Eyes: Pupils equal, round and reactive to light. ENT: Pharynx normal. Neck: Normal inspection. Neck supple. No lymph nodes noted. No crepitus CVS: Normal heart rate and rhythm. Pulses normal. Normal S1 and S2 Respiratory: No respiratory distress. Breath sounds normal. No Wheezing. No rales Abdomen: Soft and nontender. No rigidity. No distention. Skin: Skin warm and dry. Normal skin color. Normal skin turgor. Extremities: No lower extremity edema. No Lacerations. No Rash Neuro: Oriented X 3. No motor deficit. No sensory deficit. Moving all extremities. No slurred speech. CN 2 through 12 grossly intact Psych: calm, cooperative, patient requesting to have her quran book for reading and prayer Course Course Course Narrative: -all of patient's labs pending -care team consult pending -patient is on a Section 12 -physician observation started at 22:40 Medical Decision Making Differential Diagnosis Differential Diagnoses: The differential diagnosis associated with the presentation includes (Alcohol intoxication, polysubstance abuse, bipolar disorder decompensation) Admission/Observation Consideration of admission/observation: Escalation of care including admission/observation considered (Patient is on a Section 12, waiting to be seen by the care team to determine disposition. Likely inpatient level of care needed) Critical Care Time Critical Care Time Critical Care Time: Yes Total Critical Care Time: 35 Attestation: I have personally provided critical care time. Time includes review of lab data, radiology results, discussion with consultants, and monitoring for potential decompensation. Intervention performed as documented. Discharge Plan Discharge Clinical Impression: Bipolar disorder with psychotic features Prescriptions: No Action loratadine 10 mg Tablet 10 mg PO DAILY@1200 Qty: 10 0RF albuterol sulfate 90 mcg/actuation HFA aerosol inhaler 1 inh inhalation QID PRN (Reason: wheezing) Qty: 6.7 0RF epinephrine 1 mg/mL solution 1 mg subcut Q20M PRN (Reason: anaphylaxis) Qty: 30 0RF Rx Instructions: for 2 doses atorvastatin 10 mg Tablet 10 mg PO DAILY Qty: 30 0RF divalproex 500 mg Tablet,Delayed Release (Dr/Ec) 500 mg PO BID Qty: 60 0RF ezetimibe 10 mg Tablet 10 mg PO DAILY Qty: 30 0RF lurasidone [Latuda] 20 mg Tablet 60 mg PO DAILY@1700 Qty: 30 0RF hydrocortisone 2.5 % cream with perineal applicator 1 appl NJ BEDTIME PRN (Reason: hemorrhoids) Qty: 30 0RF Ozempic 2 mg/dose (8 mg/3 mL) pen injector subcut ibuprofen 800 mg tablet 800 mg PO .Q.d. PRN (Reason: pain (scale score 7-10)) 30 Days Qty: 30 6RF Interventions: Da[place]hin-Suicide Risk Severity Scale Last Done: 06/13/23 22:36 Print Language: Setswana
[2023-06-13 23:37] LABS: MANUAL DIFF FLAG NO
[2023-06-13 23:38] LABS: Basophils Absolute Auto 0.1 X10*3/uL (0.0-0.2); Basophils Percent Auto 0.5 % (0-2); Eosinophils Absolute Auto 0.1 X10*3/uL (0.0-0.4); Eosinophils Percent Auto 1.3 % (0-4); Hematocrit 44.1 % (37.0-47.0); Hemoglobin 14.5 g/dl (12.0-16.0); Imm Gran Abs Auto 0.06 X10*3/uL (0.00-0.03); Imm Gran Pct Auto 0.6 % (0.0-0.4); Lymphocytes Absolute Auto 2.2 X10*3/uL (1.2-4.9); Mean Corpuscular HGB Conc 32.9 g/dl (31.0-35.0); Mean Corpuscular Hemoglobin 28.6 pg (27.0-33.0); Mean Platelet Volume 10.3 fL (9.4-12.3); Monocytes Absolute Auto 0.8 X10*3/uL (0.1-1.2); Monocytes Percent Auto 7.6 % (2-11); Neutrophils Absolute Auto 7.1 x10*3/uL (2.0-8.3); Platelet Count 287 X10*3/uL (160-400); Red Blood Count 5.07 X10*6/uL (4.20-5.50); Red Cell Distribution Width 15.8 % (11.0-16.0); White Blood Count 10.2 X10*3/uL (4.8-10.8)
[2023-06-13 23:39] LABS: Appearance Urine Cloudy; Color Urine Yellow; Glucose Urine UA Negative (Negative); Leukocyte Esterase Urine Negative (Negative); Nitrite Urine Negative (Negative); PH 6.5 (5.0-9.0); Urine Blood Negative (Negative); Urine Ketones Negative (Negative); Urine Protein Negative (Neg-Trace)
[2023-06-13 23:46] LABS: Amphetamine Screen Urine Not Detected (Not Detect); Barbiturates, Urine Not Detected (Not Detect); Benzodiazepines Screen Urine Not Detected (Not Detect); Cannabinoid Screen Urine Not Detected (Not Detect); Cocaine Screen Urine Not Detected (Not Detect); Fentanyl, urine Not Detected (Not Detect); Opiate Screen Urine Not Detected (Not Detect); Phencyclidine Screen Urine Not Detected (Not Detect)
[2023-06-13 23:50] LABS: Ethanol < 10 mg/dL
[2023-06-13 23:53] LABS: Alanine Aminotransferase 17 U/L (0-31); Albumin Level 3.8 g/dL (3.5-5.0); Alkaline Phosphatase 87 U/L (39-117); Anion Gap 13 (12-20); Aspartate Amino Transferase 16 U/L (5-31); Bilirubin Direct < 0.2 mg/dL (0.0-0.5); Bilirubin Total 0.2 mg/dL (0.0-1.0); Blood Urea Nitrogen 15 mg/dL (9-16); Calcium 9.5 mg/dL (8.4-10.2); Carbon Dioxide 26 mmol/L (22-29); Chloride 106 mmol/L (96-108); Creatinine Clr Calc Pharmacy 77.9; Estimated Glomerular Filt Rate > 60; Glucose Random 113 mg/dL (60-115); Sodium 141 mmol/L (135-145); Total Protein 6.8 g/dL (6.5-8.0)
--- NOTE | 2023-06-14 | ECG_ITS ---
Test Reason : RULE OUT PROLONGED QTC Blood Pressure : / mmHG Vent. Rate : 072 BPM Atrial Rate : 072 BPM P-R Int : 128 ms QRS Dur : 090 ms QT Int : 406 ms P-R-T Axes : 050 073 055 degrees QTc Int : 444 ms Normal sinus rhythm Normal ECG When compared with ECG of 10-APR-2023 15:09, No significant change was found Referred By: Seema Ledesma Electronically Signed By:MELISSA BLANC MD
[2023-06-14 04:28] VITALS: BP 156/93; PULSE 78; RESP 17; TEMP 37.1; O2SAT 95
--- NOTE | 2023-06-14 07:08 | PC.NURSE ---
Assumed care of patient at 0700, patient appears to be resting on bed in BH 2, no apparent distress noted. Respirations even and unlabored, skin pwd. Continue plan of care for CARE eval
[2023-06-14 07:45] LABS: COVID-19 Test Negative (Negative); IDNOW Serial# 08D9AD1C
[2023-06-14 13:57] VITALS: BP 195/93; PULSE 73; RESP 16; TEMP 36.6; O2SAT 95
[2023-06-14 13:59] VITALS: BMI 35.7
--- NOTE | 2023-06-14 15:14 | PC.ADMIT ---
Patient admitted to S1 from ED via at 1350. Legal status for admission is 12B. Patient declined CV. Kaycee is known to [facility] having been discharge from S1 04/29/23. Events precipitating admission are unclear. reports patient got out of slow moving vehicle because he wouldn't take her to neurologists home. Patient ultimately was removed from [facility] where she was combative with police and placed in 4 point restraints. Patient dressed appropriately in hospital attire. Hygiene is fair/disheveled/ hair appears matted. Patient presents as alert and oriented x3 with poor insight into situation. Denies psych symptoms stating she is cured of all mental illness. Patient reportedly decompensated due to med non-compliance .On unit patient is calm and quiet. VSS. Skin check done. Height and weight obtained. Patient declined to sign JEET's stating , My is never to be called. Oriented to unit/room. Reports safe on unit.
--- NOTE | 2023-06-14 15:46 | P.HPPS_ITS ---
HPI Date of Service: 06/14/23 Chief Complaint: Bipolar disorder with psychosis Sources of Information: patient interviewed, chart reviewed and crisis/core team assessment reviewed HPI Subjective Notes: Section 12B Healthcare Proxy: No Guardianship: No Medical Problems Affecting Mental Status: No Narrative: 68 yo female, discharge from [facility] 04[place]29/23, history of bipolar disorder with psychosis. 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 She became aggressive, required 4 point restraint, reportedly had consumed wine, BAL<10, and was brought into the ER as she presented with symptoms of mahnaz, psychosis. Section XII was placed. Pt refused admission. Met with pt in the ER. She is about to begin to have lunch. 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 We reviewed briefly the reports received from the community and the concerns raised by these symptoms observed and tw role to assure her safety, thus admitting her to the unit. She declined conditional voluntary admission, but became cooperative, stating, yes, I understand your concerns, you are right, sign me in, but, I take no medicine and I have no illnesses. Call my doctor who is my . Pt was cooperative with her admission to [facility] with the team whom she is familiar with. 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 A number of days ago Kaycee had a fall and banged the left side of her head and was ordered an MRI which was supposed to be done on 03/29/2022 however she did not want to do it and the day before she became angry and agitated over this and started to shout, throwing things against the wall, broke a flat screen TV and through 2 speakers to the wall etc..? The police were called and she was brought to the emergency room were she was physically and chemically restrained.? According to her she has been showing signs of irritability, paranoia, suspiciousness.? He also stated that she would have episodes and periods of talking about the issues that she was paranoid and suspicious about and then would have periods of clarity and no agitation.? Talking about someone may be trying to poison her, something pertaining to which is etc..? When I confronted her with these she essentially said that she has had bad experiences with medications in the past and is very suspicious of the affect of medicine on her ex cetera.? She has had allergic reactions to gabapentin and Lyrica.? No suicidal or homicidal ideations.? She has not been sleeping too well and has been sleeping with the lights on for some time.? She has been able to do her work around the house with cooking and cleaning.? No prior major psychiatric treatments other than when 1 of her brothers in 2019 she had sought some outpatient counseling and also when her father some years earlier. Past Psychiatric History: Brief outpatient therapy and use of Zoloft around the time she started her menopause she was given Zoloft that she took very briefly and stopped because it made her very flat emotionally....Declined medications and on day of discharge: Pt presents as paranoid and suspicious but less so than when admitted. Cause in changes in behavior and new onset paranoid are unclear at this point and pt had declined further medical work up including MRI. Pt seen by neurology who recommended starting with MRI, to considering LP, paraneoplastic panel. [facility] Discharge 04/29/23 Medical Evaluation Reviewed: Hospitalist Jyotsna Pending [facility] Medical History Vulvodynia Adjustment disorder with mixed anxiety and depressed mood Other screening mammogram IBS (irritable bowel syndrome) Depression GERD (gastroesophageal reflux disease) Hypercholesterolemia Lung nodule Proctalgia fugax Pelvic floor dysfunction Anal sphincter incompetence Gallstones Chronic bilateral low back pain without sciatica Acute allergic rhinitis Surgical History Hx of colonoscopy Hx of tonsillectomy Family History: Unknown Social History: per chart: Kaycee was born and raised in [place]. She states that both her parents are . She had a brother who in 2019 and that was difficult for her. She came to this area when she was 39. She had an aunt who lived in [place] and after that she liked the area and decided to stay. She then met her and they got fairly quickly. 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 She currently lives with her Substance History: Toxicology negative Diagnostics Vital Signs (24Hr): Vital Signs - 24 hr 06/13/23 22:19 06/14/23 04:28 06/14/23 13:57 Temperature 97.7 F 98.7 F 97.9 F Pulse Rate 95 78 73 Respiratory Rate 18 17 16 Blood Pressure 166/82 H 156/93 H 195/93 H Pulse Oximetry 95 95 95 Oxygen Delivery Method Room Air Room Air Room Air BMI result Body Mass Index 35.7 Labs 06/13/23 23:29 06/13/23 23:29 Labs: Laboratory Results - last 48 hr 06/13/23 06/13/23 06/14/23 23:19 23:29 07:14 WBC 10.2 RBC 5.07 Hgb 14.5 Hct 44.1 MCV 87.0 MCH 28.6 MCHC 32.9 RDW 15.8 Plt Count 287 MPV 10.3 Immature Gran % (Auto) 0.6 H Neut % (Auto) 69.0 Lymph % (Auto) 21.0 [place] % (Auto) 7.6 Eos % (Auto) 1.3 Baso % (Auto) 0.5 Lymph # (Auto) 2.2 [place] # (Auto) 0.8 Eos # (Auto) 0.1 Baso # (Auto) 0.1 Abs Immat Gran (auto) 0.06 H Absolute Neuts (auto) 7.1 Absolute Nucleated RBC 0.000 Nucleated RBC % (auto) 0.0 Sodium 141 Potassium 4.0 Chloride 106 Carbon Dioxide 26 Anion Gap 13 BUN 15 Creatinine 0.80 Estim Creat Clear Calc 77.9 Estimated GFR > 60 Random Glucose 113 Calcium 9.5 Magnesium 2.0 Total Bilirubin 0.2 Direct Bilirubin < 0.2 AST 16 ALT 17 Alkaline Phosphatase 87 Total Protein 6.8 Albumin 3.8 Urine Color Yellow Urine Appearance Cloudy Urine pH 6.5 Ur Specific [place] 1.020 Urine Protein Negative Urine Glucose (UA) Negative Urine Ketones Negative Urine Blood Negative Urine Nitrite Negative Ur Leukocyte Esterase Negative Urine Opiates Screen Not Detected Urine Fentanyl Screen Not Detected Ur Barbiturates Screen Not Detected Ur Phencyclidine Scrn Not Detected Ur Amphetamines Screen Not Detected U Benzodiazepines Scrn Not Detected Urine Cocaine Screen Not Detected U Marijuana (THC) Screen Not Detected Ethyl Alcohol < 10 COVID-19 (RHIANNA) Negative COVID-19 Clin Com See Note Meds/Allergies Meds Home Medications ?Medication ?Instructions ?Recorded ?Confirmed ?Type loratadine 10 mg tablet 10 mg PO DAILY 06/14/23 06/14/23 History Allergies Allergies Allergy/AdvReac Type Severity Reaction Status Date / Time cat dander Allergy Unknown Unknown Verified 06/13/23 22:26 ciprofloxacin Allergy Unknown gastritis Verified 06/13/23 22:26 gabapentin Allergy Unknown Anaphylaxis Verified 06/13/23 22:26 hornet venom [HORNETS] Allergy Unknown ANAPHYLACTI Verified 06/13/23 22:26 C latex Allergy Unknown Rash Verified 06/13/23 22:26 metronidazole Allergy Unknown GI distress Verified 06/13/23 22:26 pregabalin [From Lyrica] Allergy Unknown Angioedema Verified 06/13/23 22:26 sorbitol [SORBITOL] Allergy Unknown RASH Verified 06/13/23 22:26 sulfamethoxazole Allergy Unknown RASH Verified 06/13/23 22:26 [From BACTRIM] sulfasalazine Allergy Unknown Rash Verified 06/13/23 22:26 trimethoprim [From BACTRIM] Allergy Unknown RASH Verified 06/13/23 22:26 iodine Allergy Hives Verified 06/13/23 22:26 medrol dose pack Allergy Severe face Uncoded 06/14/23 04:08 swelling DUST Allergy Unknown SINUS Uncoded 06/14/23 04:08 INFECTION bandaids Allergy Unknown Uncoded 06/14/23 04:08 contrast Allergy rash on Uncoded 06/14/23 04:08 face betamethasone dipropriate AdvReac Severe rash Uncoded 06/14/23 04:08 Mental Status Exam Mental Status Exam Patient Appearance: Disheveled Patient Orientation: Person and Place Level of Consciousness: Restless and Alert Patient Behavior: Appropriate, Talkative, Cooperative, Suspicious, Anxious, Resistive to Care and Good Eye Contact Mood Description: Blunted Affect Description: Blunted Ability to Follow Directions: Fair Speech Pattern: Clear and Spontaneous Speech Memory Description: Remote Impaired Delusions: Paranoid Ideation, Grandiose and Present Perceptual Disturbances: Derealization Thought Process: Illogical and Distracted Thought Content: positive for Flight of Ideas, positive for Circumstantial, positive for Preoccupation and positive for Tangential Depressive Symptoms: Increased Irritability Abnormal Motor Activity Signs and Symptoms: Restlessness Judgement: Poor Assessment & Plan Assessment & Plan (1) Bipolar disorder with psychotic features: Status: Acute Code(s): F31.9 - Bipolar disorder, unspecified Plan 68 yo female, hx of bipolar disorder with psychosis, discharge from [facility] [place]29/23, today 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 Pt presenting sx of mahnaz/psychosis. Plan: Re-establish regime, Depakote, Latuda Diagnostics Collateral contact Milieu support. Patient educated on: therapeutic strategies Informed Consent: does not understand Reason for continued inpatient stay Substantial Risk for: rapid decompensation Statement Statement: I have reviewed the history and physical and performed a pertinent examination on my patient. No changes have occurred unless specified. If the History and Physical was not performed prior to admission, the Hospitalist's service will be consulted for completing the admission physical. Time Spent With Patient Time: Total time managing care of this patient today ____ minutes.
[2023-06-14 18:00] VITALS: BP 183/88; PULSE 88; RESP 18; TEMP 36.2; O2SAT 93
[2023-06-14] MEDS: Loratadine 10 MG TABLET PO (18:47)
--- NOTE | 2023-06-15 05:35 | HO.PSYCHPN ---
Subjective Subjective Date of Service: 06/15/23 Reason For Visit: Bipolar disorder with psychosis Subjective Notes: Section 12B Interim History: Per team, pt refusing of medications as she tells team she is cured, not in need of medications. Overall, team report she has consistent delusional content but is not as agitated. Team reports some clarification of precipitant to admission reporting that pt has her focus, ?erotomanic delusions with her 's neurologist. 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 He refused, so she went to a judaism to wait for him, refusing to leave until community intervention was required. Team reports poor sleep. Pt asleep when attempted to meet with her, declined interview, easily awakened, no medicine . Medication Compliance: No Side effects from medications: No Review of Systems Acute medical concerns: No Medical Review of Systems: unchanged Review of Systems Review of Systems Yes Unobtainable due to mental status Mental Status Exam Mental Status Exam Patient Appearance: Disheveled Patient Orientation: Person and Place Level of Consciousness: Restless, Alert and Lethargic Patient Behavior: Suspicious, Anxious, Resistive to Care, Fatigued and Good Eye Contact Mood Description: Blunted Affect Description: Blunted Patient Cognition Impaired: Yes Ability to Follow Directions: Fair Speech Pattern: Clear and Spontaneous Speech Memory Description: Remote Impaired Delusions: Paranoid Ideation, Grandiose and Present Perceptual Disturbances: Derealization Thought Process: Illogical and Distracted Thought Content: positive for Preoccupation Depressive Symptoms: Difficulty Sleeping Judgement: Poor Diagnostics Vital Signs (24Hr): Vital Signs - 24 hr 06/14/23 13:57 06/14/23 18:00 Temperature 97.9 F 97.1 F Pulse Rate 73 88 Respiratory Rate 16 18 Blood Pressure 195/93 H 183/88 H Pulse Oximetry 95 93 Oxygen Delivery Method Room Air Room Air BMI result Body Mass Index 35.7 Labs 06/13/23 23:29 06/13/23 23:29 Labs: Laboratory Results - last 48 hr 06/13/23 06/13/23 06/14/23 23:19 23:29 07:14 WBC 10.2 RBC 5.07 Hgb 14.5 Hct 44.1 MCV 87.0 MCH 28.6 MCHC 32.9 RDW 15.8 Plt Count 287 MPV 10.3 Immature Gran % (Auto) 0.6 H Neut % (Auto) 69.0 Lymph % (Auto) 21.0 Dolores % (Auto) 7.6 Eos % (Auto) 1.3 Baso % (Auto) 0.5 Lymph # (Auto) 2.2 Dolores # (Auto) 0.8 Eos # (Auto) 0.1 Baso # (Auto) 0.1 Abs Immat Gran (auto) 0.06 H Absolute Neuts (auto) 7.1 Absolute Nucleated RBC 0.000 Nucleated RBC % (auto) 0.0 Sodium 141 Potassium 4.0 Chloride 106 Carbon Dioxide 26 Anion Gap 13 BUN 15 Creatinine 0.80 Estim Creat Clear Calc 77.9 Estimated GFR > 60 Random Glucose 113 Calcium 9.5 Magnesium 2.0 Total Bilirubin 0.2 Direct Bilirubin < 0.2 AST 16 ALT 17 Alkaline Phosphatase 87 Total Protein 6.8 Albumin 3.8 Urine Color Yellow Urine Appearance Cloudy Urine pH 6.5 Ur Specific [place] 1.020 Urine Protein Negative Urine Glucose (UA) Negative Urine Ketones Negative Urine Blood Negative Urine Nitrite Negative Ur Leukocyte Esterase Negative Urine Opiates Screen Not Detected Urine Fentanyl Screen Not Detected Ur Barbiturates Screen Not Detected Ur Phencyclidine Scrn Not Detected Ur Amphetamines Screen Not Detected U Benzodiazepines Scrn Not Detected Urine Cocaine Screen Not Detected U Marijuana (THC) Screen Not Detected Ethyl Alcohol < 10 COVID-19 (RHIANNA) Negative COVID-19 Clin Com See Note Medications Medications Current Medications Acetaminophen (Acetaminophen 325 Mg Tablet) 650 mg PO Q6H PRN PRN Reason: Headache/Pain Mild Scale (1-3) Al Hydroxide/Mg Hydroxide (Magnesium Hydrox/Alum Hydrox 30 Ml Oral.Susp) 30 ml PO Q6H PRN PRN Reason: Heartburn/Nausea Albuterol Sulfate (Albuterol Sulfate 90 Mcg 8 Gm Inhaler) 1 puff INHALE QID PRN PRN Reason: wheezing Atorvastatin Calcium (Atorvastatin Calcium 10 Mg Tablet) 10 mg PO DAILY [facility] Divalproex Sodium (Divalproex Sodium 250 Mg Tablet.Dr) 250 mg PO BID [facility] Last Admin: 06/14/23 21:31 Dose: Not Given Ezetimibe (Ezetimibe 10 Mg Tablet) 10 mg PO DAILY [facility] Epinephrine (Epinephrine 1 Mg/Ml Vial) 0.3 mg SUBCUT Q15M PRN PRN Reason: anaphylaxis Hydrocortisone (Hydrocortisone 2.5 % Rectal Cr 30 Gm Tube) 1 appl [place] BEDTIME PRN PRN Reason: hemorrhoids Hydroxyzine HCl (Hydroxyzine Hcl 25 Mg Tablet) 25 mg PO Q6H PRN PRN Reason: Anxiety Ibuprofen (Ibuprofen 800 Mg Tablet) 800 mg PO DAILY PRN PRN Reason: pain (scale score 7-10) Loratadine (Loratadine 10 Mg Tablet) 10 mg PO DAILY [facility] Lurasidone HCl (Lurasidone Hcl 20 Mg Tablet) 20 mg PO DAILY@1700 [facility] Magnesium Hydroxide (Milk Of Magnesia 30 Ml Oral.Susp) 30 ml PO DAILY PRN PRN Reason: Constipation Trazodone HCl (Trazodone Hcl 50 Mg Tablet) 50 mg PO BEDTIME MRX1 PRN PRN Reason: Insomnia Allergies Allergies Allergy/AdvReac Type Severity Reaction Status Date / Time cat dander Allergy Unknown Unknown Verified 06/13/23 22:26 ciprofloxacin Allergy Unknown gastritis Verified 06/13/23 22:26 gabapentin Allergy Unknown Anaphylaxis Verified 06/13/23 22:26 hornet venom [HORNETS] Allergy Unknown ANAPHYLACTI Verified 06/13/23 22:26 C latex Allergy Unknown Rash Verified 06/13/23 22:26 metronidazole Allergy Unknown GI distress Verified 06/13/23 22:26 pregabalin [From Lyrica] Allergy Unknown Angioedema Verified 06/13/23 22:26 sorbitol [SORBITOL] Allergy Unknown RASH Verified 06/13/23 22:26 sulfamethoxazole Allergy Unknown RASH Verified 06/13/23 22:26 [From BACTRIM] sulfasalazine Allergy Unknown Rash Verified 06/13/23 22:26 trimethoprim [From BACTRIM] Allergy Unknown RASH Verified 06/13/23 22:26 iodine Allergy Hives Verified 06/13/23 22:26 medrol dose pack Allergy Severe face Uncoded 06/14/23 04:08 swelling DUST Allergy Unknown SINUS Uncoded 06/14/23 04:08 INFECTION bandaids Allergy Unknown Uncoded 06/14/23 04:08 contrast Allergy rash on Uncoded 06/14/23 04:08 face betamethasone dipropriate AdvReac Severe rash Uncoded 06/14/23 04:08 Assessment & Plan Assessment & Plan (1) Bipolar disorder with psychotic features: Status: Acute Code(s): F31.9 - Bipolar disorder, unspecified Plan 68 yo female, hx of bipolar disorder with psychosis, discharge from 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 Pt presenting sx of mahnaz/psychosis. Plan: Re-establish regime, Depakote, [facility] Collateral contact Milieu support. 06/15/23 Section XIIB. Encourage medication compliance Possible section VII need Informed Consent: does not understand Reason for continued inpatient stay Substantial Risk for: rapid decompensation Time Spent With Patient Time: Total time managing care of this patient today ____ minutes.
[2023-06-15 06:00] VITALS: BP 143/75; PULSE 85; RESP 18; TEMP 36.3; O2SAT 96
[2023-06-15 08:06] LABS: Folate 10.3 ng/mL (> or = 4.0)
[2023-06-15] MEDS: Loratadine 10 MG TABLET PO (09:32)
[2023-06-15] MEDS: Atorvastatin Calcium 10 MG TABLET PO (09:32)
[2023-06-15] MEDS: Ezetimibe 10 MG TABLET PO (09:32)
[2023-06-15 11:16] LABS: Cholesterol 219 mg/dL (<200); HDL Cholesterol 53 mg/dL (>40); LDL Cholesterol Calculated 152 mg/dL (<100); Triglycerides 72 mg/dL (<150)
[2023-06-15 11:19] LABS: Estimated Average Glucose 128 mg/dL; Hemoglobin A1c % 6.1 % (<6.0)
[2023-06-15 11:26] LABS: Free T4 (Free Thyroxine) 0.96 ng/dL (0.71-1.85); Thyroid Stimulating Hormone 2.37 uIU/mL (0.32-4.0)
[2023-06-15 20:25] VITALS: BP 131/69; PULSE 81; RESP 18; TEMP 36.2; O2SAT 94
[2023-06-15 23:28] LABS: Folate 8.6 ng/mL (> or = 4.0); Vitamin B12 292 pg/mL (200-900)
[2023-06-16 07:45] VITALS: BP 140/72; PULSE 87; RESP 16; TEMP 36.6; O2SAT 95
[2023-06-16] MEDS: Atorvastatin Calcium 10 MG TABLET PO (08:28)
[2023-06-16] MEDS: Loratadine 10 MG TABLET PO (08:28)
[2023-06-16] MEDS: Ezetimibe 10 MG TABLET PO (08:28)
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
[2023-06-16 18:00] VITALS: BP 147/65; PULSE 78; RESP 18; TEMP 36.7; O2SAT 93
[2023-06-17] MEDS: traZODone HCL 50 MG TABLET PO (00:01)
[2023-06-17] MEDS: Ibuprofen 800 MG TABLET PO (00:02)
[2023-06-17] MEDS: hydrOXYzine HCL 25 MG TABLET PO (00:02)
[2023-06-17] MEDS: Albuterol Sulfate 90 MCG 8 GM INHALER 1 PUFF INHALE (00:03)
[2023-06-17 08:05] VITALS: BP 122/86; PULSE 96; RESP 18; TEMP 36.2; O2SAT 96
[2023-06-17] MEDS: Ezetimibe 10 MG TABLET PO (08:26)
[2023-06-17] MEDS: Atorvastatin Calcium 10 MG TABLET PO (08:26)
[2023-06-17] MEDS: Loratadine 10 MG TABLET PO (08:26)
--- NOTE | 2023-06-17 16:48 | HO.PSYCHPN ---
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 strongly rejecting depakote latmaggie Medication Compliance: No Side effects from medications: No Review of Systems Acute medical concerns: No Medical Review of Systems: unchanged Mental Status Exam Mental Status Exam Patient Appearance: Appropriate Patient Orientation: Person, Place and Situation Level of Consciousness: Restless and Alert Patient Behavior: Suspicious, Anxious, Resistive to Care and Good Eye Contact Mood Description: Suspicious, Anxious, Blunted and Apprehensive Affect Description: Constricted, Blunted and Apprehensive Patient Cognition Impaired: Yes Ability to Follow Directions: Fair Speech Pattern: Clear, Perseverating and Spontaneous Speech Memory Description: Remote Impaired Delusions: Paranoid Ideation, Grandiose and Present Perceptual Disturbances: Derealization Thought Process: Illogical and Distracted Thought Content: positive for Preoccupation Depressive Symptoms: Difficulty Sleeping Judgement: Poor Judgement and Insight: limited insight poor judgement Diagnostics Vital Signs (24Hr): Vital Signs - 24 hr 06/16/23 18:00 06/17/23 08:05 Temperature 98.1 F 97.2 F Pulse Rate 78 96 Respiratory Rate 18 18 Blood Pressure 147/65 H 122/86 Pulse Oximetry 93 96 Oxygen Delivery Method Room Air Room Air BMI result Body Mass Index 35.7 Labs 06/13/23 23:29 06/13/23 23:29 Labs: Laboratory Results - last 48 hr 06/15/23 19:04 Vitamin B12 292 Folate 8.6 Medications Medications Current Medications Acetaminophen (Acetaminophen 325 Mg Tablet) 650 mg PO Q6H PRN PRN Reason: Headache/Pain Mild Scale (1-3) Al Hydroxide/Mg Hydroxide (Magnesium Hydrox/Alum Hydrox 30 Ml Oral.Susp) 30 ml PO Q6H PRN PRN Reason: Heartburn/Nausea Albuterol Sulfate (Albuterol Sulfate 90 Mcg 8 Gm Inhaler) 1 puff INHALE QID PRN PRN Reason: wheezing Last Admin: 06/17/23 00:03 Dose: 1 puff Atorvastatin Calcium (Atorvastatin Calcium 10 Mg Tablet) 10 mg PO DAILY [facility] Last Admin: 06/17/23 08:26 Dose: 10 mg Divalproex Sodium (Divalproex Sodium 250 Mg Tablet.Dr) 250 mg PO BID [facility] Last Admin: 06/17/23 09:25 Dose: Not Given Ezetimibe (Ezetimibe 10 Mg Tablet) 10 mg PO DAILY [facility] Last Admin: 06/17/23 08:26 Dose: 10 mg Epinephrine (Epinephrine 1 Mg/Ml Vial) 0.3 mg SUBCUT Q15M PRN PRN Reason: anaphylaxis Hydrocortisone (Hydrocortisone 2.5 % Rectal Cr 30 Gm Tube) 1 appl [place] BEDTIME PRN PRN Reason: hemorrhoids Hydroxyzine HCl (Hydroxyzine Hcl 25 Mg Tablet) 25 mg PO Q6H PRN PRN Reason: Anxiety Last Admin: 06/17/23 00:02 Dose: 25 mg Ibuprofen (Ibuprofen 800 Mg Tablet) 800 mg PO DAILY PRN PRN Reason: pain (scale score 7-10) Last Admin: 06/17/23 00:02 Dose: 800 mg Loratadine (Loratadine 10 Mg Tablet) 10 mg PO DAILY [facility] Last Admin: 06/17/23 08:26 Dose: 10 mg Lurasidone HCl (Lurasidone Hcl 20 Mg Tablet) 20 mg PO DAILY@1700 [facility] Last Admin: 06/17/23 16:34 Dose: Not Given Magnesium Hydroxide (Milk Of Magnesia 30 Ml Oral.Susp) 30 ml PO DAILY PRN PRN Reason: Constipation Trazodone HCl (Trazodone Hcl 50 Mg Tablet) 50 mg PO BEDTIME MRX1 PRN PRN Reason: Insomnia Last Admin: 06/17/23 00:01 Dose: 50 mg Allergies Allergies Allergy/AdvReac Type Severity Reaction Status Date / Time cat dander Allergy Unknown Unknown Verified 06/13/23 22:26 ciprofloxacin Allergy Unknown gastritis Verified 06/13/23 22:26 gabapentin Allergy Unknown Anaphylaxis Verified 06/13/23 22:26 hornet venom [HORNETS] Allergy Unknown ANAPHYLACTI Verified 06/13/23 22:26 C latex Allergy Unknown Rash Verified 06/13/23 22:26 metronidazole Allergy Unknown GI distress Verified 06/13/23 22:26 pregabalin [From Lyrica] Allergy Unknown Angioedema Verified 06/13/23 22:26 sorbitol [SORBITOL] Allergy Unknown RASH Verified 06/13/23 22:26 sulfamethoxazole Allergy Unknown RASH Verified 06/13/23 22:26 [From BACTRIM] sulfasalazine Allergy Unknown Rash Verified 06/13/23 22:26 trimethoprim [From BACTRIM] Allergy Unknown RASH Verified 06/13/23 22:26 iodine Allergy Hives Verified 06/13/23 22:26 medrol dose pack Allergy Severe face Uncoded 06/14/23 04:08 swelling DUST Allergy Unknown SINUS Uncoded 06/14/23 04:08 INFECTION bandaids Allergy Unknown Uncoded 06/14/23 04:08 contrast Allergy rash on Uncoded 06/14/23 04:08 face betamethasone dipropriate AdvReac Severe rash Uncoded 06/14/23 04:08 Assessment & Plan Assessment & Plan (1) Bipolar disorder with psychotic features: Status: Acute Code(s): F31.9 - Bipolar disorder, unspecified Plan 68 yo female, hx of bipolar disorder with psychosis, discharge from [facility] [place]23, today 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 Pt presenting sx of mahnaz/psychosis. Plan: Re-establish regime, Depakote, [facility] Collateral contact Milieu support. 06/15/23 Section XIIB. Encourage medication compliance Possible section VII need 06/16/23 no insight delusional ? may need sec 7 06/17/23 Pt refusing medication tx was aggressive agitated precinct captain paranoia bizarre behavoir spoke with dr contreras ? past mri brain showing ? small aneurysm consult placed ? sec 7 vs pt signed cv ? Patient educated on: diagnosis and medication risk/benefits Informed Consent: does not understand Reason for continued inpatient stay Substantial Risk for: inability to function and rapid decompensation Time Spent With Patient Time: Total time managing care of this patient today _30___ minutes.
[2023-06-17 18:00] VITALS: BP 139/65; PULSE 71; RESP 18; TEMP 36.3; O2SAT 94
--- NOTE | 2023-06-17 18:21 | PC.NURSE ---
Patient signed a CV today at 1820.
[2023-06-17] MEDS: Divalproex Sodium 250 MG TABLET.DR PO (20:05)
[2023-06-18] MEDS: Ibuprofen 800 MG TABLET PO (00:23)
[2023-06-18] MEDS: traZODone HCL 50 MG TABLET PO (00:24)
[2023-06-18] MEDS: hydrOXYzine HCL 25 MG TABLET PO (00:24)
[2023-06-18] MEDS: Magnesium Hydrox/Alum Hydrox 30 ML ORAL.SUSP PO (00:33)
[2023-06-18 07:30] VITALS: BP 125/88; PULSE 64; RESP 16; TEMP 36.1; O2SAT 94
[2023-06-18] MEDS: Divalproex Sodium 250 MG TABLET.DR PO ×2 (09:16→20:51)
[2023-06-18] MEDS: Ezetimibe 10 MG TABLET PO (09:16)
[2023-06-18] MEDS: Atorvastatin Calcium 10 MG TABLET PO (09:17)
[2023-06-18] MEDS: Loratadine 10 MG TABLET PO (09:17)
--- NOTE | 2023-06-18 10:13 | P.PNPSI_ITS ---
Subjective Subjective Date of Service: 06/18/23 Reason For Visit: Bipolar disorder with psychosis Subjective Notes: Conditional Voluntary Healthcare Proxy: No Guardianship: No Medical Problems Affecting Mental Status: No Interim History: The pt is anxious ruminating and pressured. she is polite. without being askes she tells me she was at the [facility] because she takes comfort there. She states she has PTSD from childhood. she did nto understand why police were trying to detain her; she says she swing her pocket book at the police and she was handcuffed; she tells me sh has to get home to take care of her who has parkinson's and she needs to finish their taxes. she wants to leave the hospital friday. She signed a 3 day notice and understands that means she can leave legally on Friday. She tells me she is taking the depakote and it makes her a little sleepy but she thinks it may be helping her anxiety. She is refusing the latuda. Medication Compliance: Intermittent Side effects from medications: No Attending Groups: Intermittent Review of Systems Acute medical concerns: No Medical Review of Systems: unchanged Review of Systems Review of Systems Constitutional : No Weight loss, No Fever, No Chills, No Night Sweats, No Fatigue, No Malaise ENT/Mouth : No Hearing loss, No Ear Pain, No Nasal Congestion, No Sinus Pain, No Hoarseness, No sore throat, No Rhinorrhea, No Swallowing Difficulty Eyes: No Eye Pain, No Swelling, No Redness, No Foreign Body, No Discharge, No Vision Changes Cardiovascular : No Chest Pain, No SOB, No Dyspnea on Exertion, No Orthopnea, No Edema, No Palpitations Respiratory : No Cough, No Sputum, No Wheezing, No Smoke Exposure, No Dyspnea Gastrointestinal : No Nausea, No Vomiting, No Diarrhea, No Constipation, No abdominal Pain, No Hematochezia, No Melena Genitourinary : no irregular bleeding, No Dysuria, No Urinary Frequency, No Hematuria, No Urinary Incontinence, No Urgency, No Flank Pain, No Urinary Flow Changes, No Hesitancy Musculoskeletal : No joint pain, No Myalgias, No Joint Swelling Skin : No Skin Lesions, No rash Neuro : No Weakness, No Numbness, No Paresthesias, No Loss of Consciousness, No Dizziness, No Headache Psych : No Anxiety/Panic, No Depression, denies SI or HI, per bystanders, patient had erratic behavior Heme/Lymph: No Bruising, No Bleeding,No Lymphadenopathy Endocrine : No Polyuria, No Polydipsia, No Temperature Intolerance Yes Unobtainable due to mental status Mental Status Exam Mental Status Exam Patient Appearance: Appropriate Patient Orientation: Person, Place and Situation Level of Consciousness: Restless and Alert Patient Behavior: Cooperative, Anxious and Good Eye Contact Mood Description: Suspicious, Anxious, Blunted and Apprehensive Affect Description: Constricted, Blunted and Apprehensive Patient Cognition Impaired: Yes Ability to Follow Directions: Fair Speech Pattern: Clear, Perseverating and Spontaneous Speech Memory Description: Remote Impaired Hallucinations: None Thought Process: Distracted Thought Content: positive for Preoccupation and positive for Tangential Judgement: Poor Judgement and Insight: little insight and poor judgment Diagnostics Vital Signs (24Hr): Vital Signs - 24 hr 06/17/23 18:00 06/18/23 07:30 Temperature 97.3 F 97.0 F Pulse Rate 71 64 Respiratory Rate 18 16 Blood Pressure 139/65 125/88 Pulse Oximetry 94 94 Oxygen Delivery Method Room Air Room Air BMI result Body Mass Index 35.7 Labs 06/13/23 23:29 06/13/23 23:29 Medications Medications Current Medications Acetaminophen (Acetaminophen 325 Mg Tablet) 650 mg PO Q6H PRN PRN Reason: Headache/Pain Mild Scale (1-3) Al Hydroxide/Mg Hydroxide (Magnesium Hydrox/Alum Hydrox 30 Ml Oral.Susp) 30 ml PO Q6H PRN PRN Reason: Heartburn/Nausea Last Admin: 06/18/23 00:33 Dose: 30 ml Albuterol Sulfate (Albuterol Sulfate 90 Mcg 8 Gm Inhaler) 1 puff INHALE QID PRN PRN Reason: wheezing Last Admin: 06/17/23 00:03 Dose: 1 puff Atorvastatin Calcium (Atorvastatin Calcium 10 Mg Tablet) 10 mg PO DAILY [facility] Last Admin: 06/18/23 09:17 Dose: 10 mg Divalproex Sodium (Divalproex Sodium 250 Mg Tablet.) 250 mg PO BID [facility] Last Admin: 06/18/23 09:16 Dose: 250 mg Ezetimibe (Ezetimibe 10 Mg Tablet) 10 mg PO DAILY [facility] Last Admin: 06/18/23 09:16 Dose: 10 mg Epinephrine (Epinephrine 1 Mg/Ml Vial) 0.3 mg SUBCUT Q15M PRN PRN Reason: anaphylaxis Hydrocortisone (Hydrocortisone 2.5 % Rectal Cr 30 Gm Tube) 1 appl [place] BEDTIME PRN PRN Reason: hemorrhoids Hydroxyzine HCl (Hydroxyzine Hcl 25 Mg Tablet) 25 mg PO Q6H PRN PRN Reason: Anxiety Last Admin: 06/18/23 00:24 Dose: 25 mg Ibuprofen (Ibuprofen 800 Mg Tablet) 800 mg PO DAILY PRN PRN Reason: pain (scale score 7-10) Last Admin: 06/18/23 00:23 Dose: 800 mg Loratadine (Loratadine 10 Mg Tablet) 10 mg PO DAILY [facility] Last Admin: 06/18/23 09:17 Dose: 10 mg Lurasidone HCl (Lurasidone Hcl 20 Mg Tablet) 20 mg PO DAILY@1700 [facility] Last Admin: 06/17/23 16:34 Dose: Not Given Magnesium Hydroxide (Milk Of Magnesia 30 Ml Oral.Susp) 30 ml PO DAILY PRN PRN Reason: Constipation Trazodone HCl (Trazodone Hcl 50 Mg Tablet) 50 mg PO BEDTIME MRX1 PRN PRN Reason: Insomnia Last Admin: 06/18/23 00:24 Dose: 50 mg Allergies Allergies Allergy/AdvReac Type Severity Reaction Status Date / Time cat dander Allergy Unknown Unknown Verified 06/13/23 22:26 ciprofloxacin Allergy Unknown gastritis Verified 06/13/23 22:26 gabapentin Allergy Unknown Anaphylaxis Verified 06/13/23 22:26 hornet venom [HORNETS] Allergy Unknown ANAPHYLACTI Verified 06/13/23 22:26 C latex Allergy Unknown Rash Verified 06/13/23 22:26 metronidazole Allergy Unknown GI distress Verified 06/13/23 22:26 pregabalin [From Lyrica] Allergy Unknown Angioedema Verified 06/13/23 22:26 sorbitol [SORBITOL] Allergy Unknown RASH Verified 06/13/23 22:26 sulfamethoxazole Allergy Unknown RASH Verified 06/13/23 22:26 [From BACTRIM] sulfasalazine Allergy Unknown Rash Verified 06/13/23 22:26 trimethoprim [From BACTRIM] Allergy Unknown RASH Verified 06/13/23 22:26 iodine Allergy Hives Verified 06/13/23 22:26 medrol dose pack Allergy Severe face Uncoded 06/14/23 04:08 swelling DUST Allergy Unknown SINUS Uncoded 06/14/23 04:08 INFECTION bandaids Allergy Unknown Uncoded 06/14/23 04:08 contrast Allergy rash on Uncoded 06/14/23 04:08 face betamethasone dipropriate AdvReac Severe rash Uncoded 06/14/23 04:08 Assessment & Plan Assessment & Plan (1) Bipolar disorder with psychotic features: Status: Acute Code(s): F31.9 - Bipolar disorder, unspecified Plan 68 yo female, hx of bipolar disorder with psychosis, discharge from [facility] [place]/23, today spending 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 Pt presenting sx of mahnaz/psychosis. Plan: Re-establish regime, Depakote, Latuda Diagnostics Collateral contact Milieu support. 06/15/23 Section XIIB. Encourage medication compliance Possible section VII need 06/16/23 no insight delusional ? 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 past mri brain showing ? small aneurysm consult placed ? sec 7 vs pt signed cv ? 06/18/23 pt started accepting depakote, no paranoid statements today;CV accepted and pt signed 3 day notice today Patient educated on: diagnosis, medication risk/benefits and therapeutic strategies Informed Consent: understands and further education needed Reason for continued inpatient stay Substantial Risk for: harm to self, inability to function and rapid decompensation Time Spent With Patient Time: Total time managing care of this patient today __30__ minutes.
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
[2023-06-18] MEDS: Lurasidone HCl 20 MG TABLET PO (16:47)
[2023-06-18 18:00] VITALS: BP 151/71; PULSE 98; RESP 16; TEMP 36.6; O2SAT 92
[2023-06-19 07:00] VITALS: BMI 36.4
[2023-06-19 08:34] VITALS: BP 154/79; PULSE 95; RESP 18; TEMP 36.2; O2SAT 98
[2023-06-19] MEDS: Divalproex Sodium 250 MG TABLET.DR PO (08:45)
[2023-06-19] MEDS: Loratadine 10 MG TABLET PO (08:45)
[2023-06-19] MEDS: Ibuprofen 800 MG TABLET PO (08:45)
[2023-06-19] MEDS: Atorvastatin Calcium 10 MG TABLET PO (08:45)
[2023-06-19] MEDS: Ezetimibe 10 MG TABLET PO (08:45)
--- NOTE | 2023-06-19 12:03 | HO.PSYCHPN ---
Subjective Subjective Date of Service: 06/19/23 Reason For Visit: Bipolar disorder with psychosis Subjective Notes: Jordan Warning and 3 Day Interim History: Discussed with team; Pt is with elevated mood; pressured speech today. She is anxious ruminating. She says she got upset this am because she thought she was going home today but understands that her 3 day notic is not up until friday due to weekend and holiday; pt is accepting of staying until Friday; she says friends are arriving from [place] this weekend; she asks if she can see Dr Arzate while in the hpsital or make an appt to go voer there to his office to see him. She said she wanted to talk with him; she says there is nothing wrong with her from neurologist point of view. She and I discussed her medications; she agreed to a small increase of depakote at night. She refused an additional 250mg of Depakote at night but agreed to 125mg extra at nigh. t she tells me she needs to get home to take care of her who has parkinson's and she needs to finish their taxes. We reviewed her medications and she said she would take the lurasidone. Medication Compliance: Intermittent Side effects from medications: No Attending Groups: Intermittent Review of Systems Acute medical concerns: No Medical Review of Systems: unchanged Review of Systems Review of Systems No recent cold or flu-like illness or trauma Yes Unobtainable due to mental status Mental Status Exam Mental Status Exam Patient Appearance: Appropriate Patient Orientation: Person, Place and Situation Level of Consciousness: Restless and Alert Patient Behavior: Cooperative, Anxious, Resistive to Care, Good Eye Contact and Impulsive Mood Description: Suspicious, Anxious, Labile and Apprehensive Affect Description: Constricted, Labile and Apprehensive Patient Cognition Impaired: Yes Ability to Follow Directions: Fair Speech Pattern: Clear, Perseverating, Spontaneous Speech, Rambling, Rapid, Excessive and Pressured Memory Description: Remote Impaired Hallucinations: None Delusions: Bizarre Thought Process: Illogical, Distracted and Goal Oriented (focused on leaving) Thought Content: positive for Preoccupation and positive for Loose Associations Judgement: Poor Judgement and Insight: little insight re:illness. Diagnostics Vital Signs (24Hr): Vital Signs - 24 hr 06/18/23 18:00 06/19/23 08:34 Temperature 98 F 97.1 F Pulse Rate 98 95 Respiratory Rate 16 18 Blood Pressure 151/71 H 154/79 H Pulse Oximetry 92 98 Oxygen Delivery Method Room Air Room Air BMI result Body Mass Index 35.7 Labs 06/13/23 23:29 06/13/23 23:29 Medications Medications Current Medications Acetaminophen (Acetaminophen 325 Mg Tablet) 650 mg PO Q6H PRN PRN Reason: Headache/Pain Mild Scale (1-3) Al Hydroxide/Mg Hydroxide (Magnesium Hydrox/Alum Hydrox 30 Ml Oral.Susp) 30 ml PO Q6H PRN PRN Reason: Heartburn/Nausea Last Admin: 06/18/23 00:33 Dose: 30 ml Albuterol Sulfate (Albuterol Sulfate 90 Mcg 8 Gm Inhaler) 1 puff INHALE QID PRN PRN Reason: wheezing Last Admin: 06/17/23 00:03 Dose: 1 puff Atorvastatin Calcium (Atorvastatin Calcium 10 Mg Tablet) 10 mg PO DAILY [facility] Last Admin: 06/19/23 08:45 Dose: 10 mg Divalproex Sodium (Divalproex Sodium 250 Mg Tablet.Dr) 250 mg PO BID [facility] Last Admin: 06/19/23 08:45 Dose: 250 mg Ezetimibe (Ezetimibe 10 Mg Tablet) 10 mg PO DAILY [facility] Last Admin: 06/19/23 08:45 Dose: 10 mg Epinephrine (Epinephrine 1 Mg/Ml Vial) 0.3 mg SUBCUT Q15M PRN PRN Reason: anaphylaxis Hydrocortisone (Hydrocortisone 2.5 % Rectal Cr 30 Gm Tube) 1 appl IN BEDTIME PRN PRN Reason: hemorrhoids Hydroxyzine HCl (Hydroxyzine Hcl 25 Mg Tablet) 25 mg PO Q6H PRN PRN Reason: Anxiety Last Admin: 06/18/23 00:24 Dose: 25 mg Ibuprofen (Ibuprofen 800 Mg Tablet) 800 mg PO DAILY PRN PRN Reason: pain (scale score 7-10) Last Admin: 06/19/23 08:45 Dose: 800 mg Loratadine (Loratadine 10 Mg Tablet) 10 mg PO DAILY [facility] Last Admin: 06/19/23 08:45 Dose: 10 mg Lurasidone HCl (Lurasidone Hcl 20 Mg Tablet) 20 mg PO DAILY@1700 [facility] Last Admin: 06/18/23 16:47 Dose: 20 mg Magnesium Hydroxide (Milk Of Magnesia 30 Ml Oral.Susp) 30 ml PO DAILY PRN PRN Reason: Constipation Trazodone HCl (Trazodone Hcl 50 Mg Tablet) 50 mg PO BEDTIME MRX1 PRN PRN Reason: Insomnia Last Admin: 06/18/23 00:24 Dose: 50 mg Allergies Allergies Allergy/AdvReac Type Severity Reaction Status Date / Time cat dander Allergy Unknown Unknown Verified 06/13/23 22:26 ciprofloxacin Allergy Unknown gastritis Verified 06/13/23 22:26 gabapentin Allergy Unknown Anaphylaxis Verified 06/13/23 22:26 hornet venom [HORNETS] Allergy Unknown ANAPHYLACTI Verified 06/13/23 22:26 C latex Allergy Unknown Rash Verified 06/13/23 22:26 metronidazole Allergy Unknown GI distress Verified 06/13/23 22:26 pregabalin [From Lyrica] Allergy Unknown Angioedema Verified 06/13/23 22:26 sorbitol [SORBITOL] Allergy Unknown RASH Verified 06/13/23 22:26 sulfamethoxazole Allergy Unknown RASH Verified 06/13/23 22:26 [From BACTRIM] sulfasalazine Allergy Unknown Rash Verified 06/13/23 22:26 trimethoprim [From BACTRIM] Allergy Unknown RASH Verified 06/13/23 22:26 iodine Allergy Hives Verified 06/13/23 22:26 medrol dose pack Allergy Severe face Uncoded 06/14/23 04:08 swelling DUST Allergy Unknown SINUS Uncoded 06/14/23 04:08 INFECTION bandaids Allergy Unknown Uncoded 06/14/23 04:08 contrast Allergy rash on Uncoded 06/14/23 04:08 face betamethasone dipropriate AdvReac Severe rash Uncoded 06/14/23 04:08 Assessment & Plan Assessment & Plan (1) Bipolar disorder with psychotic features: Status: Acute Code(s): F31.9 - Bipolar disorder, unspecified Plan 68 yo female, hx of bipolar disorder with psychosis, discharge from [facility] [place], today 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 Pt presenting sx of mahnaz/psychosis. Plan: Re-establish regime, Depakote, Latuda Diagnostics Collateral contact Milieu support. 06/15/23 Section XIIB. Encourage medication compliance Possible section VII need 06/16/23 no insight delusional ? 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 past mri brain showing ? small aneurysm consult placed ? sec 7 vs pt signed cv ? 06/18/23 pt started accepting depakote, no paranoid statements today;CV accepted and pt signed 3 day notice today 06/19/23 increase depakote to 250mg in am and 375 mg at night Reason for continued inpatient stay Substantial Risk for: harm to self, harm to others and inability to function Time Spent With Patient Time: Total time managing care of this patient today ____ minutes.
[2023-06-19] MEDS: Lurasidone HCl 20 MG TABLET PO (17:07)
[2023-06-19 18:00] VITALS: BP 150/70; PULSE 77; RESP 20; TEMP 36.6; O2SAT 98
[2023-06-19] MEDS: Divalproex Sodium 250 MG TABLET.DR 375 MG PO (21:21)
[2023-06-20] MEDS: Ibuprofen 800 MG TABLET PO ×2 (03:01→23:26)
[2023-06-20] MEDS: hydrOXYzine HCL 25 MG TABLET PO ×2 (03:03→23:25)
[2023-06-20 06:00] VITALS: BP 122/58; PULSE 86; RESP 18; TEMP 36.6; O2SAT 93
[2023-06-20] MEDS: Atorvastatin Calcium 10 MG TABLET PO (08:23)
[2023-06-20] MEDS: Ezetimibe 10 MG TABLET PO (08:23)
[2023-06-20] MEDS: Loratadine 10 MG TABLET PO (08:23)
[2023-06-20] MEDS: Divalproex Sodium 250 MG TABLET.DR PO (08:24)
--- NOTE | 2023-06-20 10:46 | P.PNPSI_ITS ---
Subjective Subjective Date of Service: 06/20/23 Reason For Visit: Bipolar disorder with psychosis Subjective Notes: Conditional Voluntary and 3 Day Interim History: Discussed with team; Pt is soft spoken and calm today; she is compliant with medications; she had visit with today; she says it went well. we discussed medications and she will continue with depakote and latuda titration. she was on 1000 mg VPA and 60 mg of latuda at last discharge. discussed lab tests with her for tomorrow am. no deluisonal material expressed today. she is focused on going home but with less pressure and demand. she denies SI or HI. TW placed telephone call to Dr Murray office to discuss consultation and ask him to order CTA of brain- awaiting call back. Medication Compliance: Yes Side effects from medications: No Attending Groups: Intermittent Review of Systems Acute medical concerns: No Medical Review of Systems: unchanged Review of Systems Review of Systems No recent cold or flu-like illness or trauma Yes Unobtainable due to mental status Mental Status Exam Mental Status Exam Patient Appearance: Appropriate Patient Orientation: Person, Place and Situation Level of Consciousness: Drowsy and Alert Patient Behavior: Appropriate, Guarded, Cooperative, Anxious and Good Eye Contact Mood Description: Suspicious, Anxious, Labile and Apprehensive Affect Description: Constricted, Labile and Apprehensive Patient Cognition Impaired: Yes Ability to Follow Directions: Fair Speech Pattern: Clear, Perseverating, Spontaneous Speech, Rambling, Rapid, Excessive and Pressured Memory Description: Remote Impaired Hallucinations: None Delusions: Ideas of Reference Thought Process: Intact Thought Content: positive for Intact Judgement: Fair Diagnostics Vital Signs (24Hr): Vital Signs - 24 hr 06/19/23 18:00 06/20/23 06:00 Temperature 97.8 F 97.8 F Pulse Rate 77 86 Respiratory Rate 20 18 Blood Pressure 150/70 H 122/58 L Pulse Oximetry 98 93 Oxygen Delivery Method Room Air Room Air BMI result Body Mass Index 36.4 Labs 06/13/23 23:29 06/13/23 23:29 Medications Medications Current Medications Acetaminophen (Acetaminophen 325 Mg Tablet) 650 mg PO Q6H PRN PRN Reason: Headache/Pain Mild Scale (1-3) Al Hydroxide/Mg Hydroxide (Magnesium Hydrox/Alum Hydrox 30 Ml Oral.Susp) 30 ml PO Q6H PRN PRN Reason: Heartburn/Nausea Last Admin: 06/18/23 00:33 Dose: 30 ml Albuterol Sulfate (Albuterol Sulfate 90 Mcg 8 Gm Inhaler) 1 puff INHALE QID PRN PRN Reason: wheezing Last Admin: 06/17/23 00:03 Dose: 1 puff Atorvastatin Calcium (Atorvastatin Calcium 10 Mg Tablet) 10 mg PO DAILY [facility] Last Admin: 06/20/23 08:23 Dose: 10 mg Divalproex Sodium (Divalproex Sodium 250 Mg Tablet.Dr) 250 mg PO DAILY [facility] Last Admin: 06/20/23 08:24 Dose: 250 mg Divalproex Sodium (Divalproex Sodium 250 Mg Tablet.Dr) 375 mg PO BEDTIME [facility] Last Admin: 06/19/23 21:21 Dose: 375 mg Ezetimibe (Ezetimibe 10 Mg Tablet) 10 mg PO DAILY [facility] Last Admin: 06/20/23 08:23 Dose: 10 mg Epinephrine (Epinephrine 1 Mg/Ml Vial) 0.3 mg SUBCUT Q15M PRN PRN Reason: anaphylaxis Hydrocortisone (Hydrocortisone 2.5 % Rectal Cr 30 Gm Tube) [address] BEDTIME PRN PRN Reason: hemorrhoids Hydroxyzine HCl (Hydroxyzine Hcl 25 Mg Tablet) 25 mg PO Q6H PRN PRN Reason: Anxiety Last Admin: 06/20/23 03:03 Dose: 25 mg Ibuprofen (Ibuprofen 800 Mg Tablet) 800 mg PO DAILY PRN PRN Reason: pain (scale score 7-10) Last Admin: 06/20/23 03:01 Dose: 800 mg Loratadine (Loratadine 10 Mg Tablet) 10 mg PO DAILY [facility] Last Admin: 06/20/23 08:23 Dose: 10 mg Lurasidone HCl (Lurasidone Hcl 20 Mg Tablet) 20 mg PO DAILY@1700 [facility] Last Admin: 06/19/23 17:07 Dose: 20 mg Magnesium Hydroxide (Milk Of Magnesia 30 Ml Oral.Susp) 30 ml PO DAILY PRN PRN Reason: Constipation Trazodone HCl (Trazodone Hcl 50 Mg Tablet) 50 mg PO BEDTIME MRX1 PRN PRN Reason: Insomnia Last Admin: 06/18/23 00:24 Dose: 50 mg Allergies Allergies Allergy/AdvReac Type Severity Reaction Status Date / Time cat dander Allergy Unknown Unknown Verified 06/13/23 22:26 ciprofloxacin Allergy Unknown gastritis Verified 06/13/23 22:26 gabapentin Allergy Unknown Anaphylaxis Verified 06/13/23 22:26 hornet venom [HORNETS] Allergy Unknown ANAPHYLACTI Verified 06/13/23 22:26 C latex Allergy Unknown Rash Verified 06/13/23 22:26 metronidazole Allergy Unknown GI distress Verified 06/13/23 22:26 pregabalin [From Lyrica] Allergy Unknown Angioedema Verified 06/13/23 22:26 sorbitol [SORBITOL] Allergy Unknown RASH Verified 06/13/23 22:26 sulfamethoxazole Allergy Unknown RASH Verified 06/13/23 22:26 [From BACTRIM] sulfasalazine Allergy Unknown Rash Verified 06/13/23 22:26 trimethoprim [From BACTRIM] Allergy Unknown RASH Verified 06/13/23 22:26 iodine Allergy Hives Verified 06/13/23 22:26 medrol dose pack Allergy Severe face Uncoded 06/14/23 04:08 swelling DUST Allergy Unknown SINUS Uncoded 06/14/23 04:08 INFECTION bandaids Allergy Unknown Uncoded 06/14/23 04:08 contrast Allergy rash on Uncoded 06/14/23 04:08 face betamethasone dipropriate AdvReac Severe rash Uncoded 06/14/23 04:08 Assessment & Plan Assessment & Plan (1) Bipolar disorder with psychotic features: Status: Acute Code(s): F31.9 - Bipolar disorder, unspecified Plan 68 yo female, hx of bipolar disorder with psychosis, discharge from [facility] 04/29/23, 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 Pt presenting sx of mahnaz/psychosis. Plan: Re-establish regime, Depakote, Latuda Diagnostics Collateral contact Milieu support. 06/15/23 Section XIIB. Encourage medication compliance Possible section VII need 06/16/23 no insight delusional ? 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 past mri brain showing ? small aneurysm consult placed ? sec 7 vs pt signed cv ? 06/18/23 pt started accepting depakote, no paranoid statements today;CV accepted and pt signed 3 day notice today 06/19/23 increase depakote to 250mg in am and 375 mg at night 06/20/23 cv with 3 days notice up on Friday 06/23. Increase depakote 250 mg in am and 500mg at bedtime; increase latuda 20mg BID with food lyme test ordered, CBC, CMP, and VPA level for am t/c to Dr murray to discuss consult and ask to order CTA of brain Patient educated on: diagnosis, medication risk/benefits and therapeutic strategies Informed Consent: further education needed Reason for continued inpatient stay Substantial Risk for: harm to self, harm to others and inability to function Time Spent With Patient Time: Total time managing care of this patient today ____ minutes.
[2023-06-20] MEDS: Lurasidone HCl 40 MG TABLET PO (17:17)
[2023-06-20 18:00] VITALS: BP 143/71; PULSE 100; RESP 18; TEMP 36; O2SAT 93
[2023-06-20] MEDS: Divalproex Sodium 500 MG TABLET.DR PO (21:13)
[2023-06-20] MEDS: traZODone HCL 50 MG TABLET PO (23:26)
[2023-06-20] MEDS: Magnesium Hydrox/Alum Hydrox 30 ML ORAL.SUSP PO (23:27)
[2023-06-21] MEDS: traZODone HCL 50 MG TABLET PO ×2 (01:18→22:55)
[2023-06-21 07:55] LABS: MANUAL DIFF FLAG NO
[2023-06-21 08:01] LABS: Basophils Absolute Auto 0.1 X10*3/uL (0.0-0.2); Basophils Percent Auto 0.8 % (0-2); Eosinophils Absolute Auto 0.4 X10*3/uL (0.0-0.4); Eosinophils Percent Auto 5.5 % (0-4); Hematocrit 45.6 % (37.0-47.0); Hemoglobin 14.9 g/dl (12.0-16.0); Imm Gran Pct Auto 2.5 % (0.0-0.4); Lymphocytes Absolute Auto 3.1 X10*3/uL (1.2-4.9); Lymphocytes Percent Auto 39.2 % (20-40); Mean Corpuscular HGB Conc 32.7 g/dl (31.0-35.0); Mean Corpuscular Hemoglobin 28.3 pg (27.0-33.0); Mean Corpuscular Volume 86.7 fL (80.0-98.0); Mean Platelet Volume 10.6 fL (9.4-12.3); Monocytes Absolute Auto 0.7 X10*3/uL (0.1-1.2); Neutrophils Absolute Auto 3.4 x10*3/uL (2.0-8.3); Platelet Count 294 X10*3/uL (160-400); Red Blood Count 5.26 X10*6/uL (4.20-5.50); Red Cell Distribution Width 15.8 % (11.0-16.0); White Blood Count 7.9 X10*3/uL (4.8-10.8)
[2023-06-21 08:17] LABS: Valproate 60.6 mcg/mL (50.0-100.0)
[2023-06-21 08:22] LABS: Alanine Aminotransferase 27 U/L (0-31); Albumin Level 3.9 g/dL (3.5-5.0); Alkaline Phosphatase 78 U/L (39-117); Anion Gap 12 (12-20); Aspartate Amino Transferase 20 U/L (5-31); Bilirubin Total 0.3 mg/dL (0.0-1.0); Blood Urea Nitrogen 23 mg/dL (9-16); Calcium 9.3 mg/dL (8.4-10.2); Carbon Dioxide 28 mmol/L (22-29); Chloride 107 mmol/L (96-108); Creatinine Clr Calc Pharmacy 78.6; Estimated Glomerular Filt Rate > 60; Glucose Fasting 95 mg/dL (60-99); Potassium 3.9 mmol/L (3.3-5.1); Sodium 143 mmol/L (135-145)
[2023-06-21 08:44] VITALS: BP 123/60; PULSE 103; RESP 15; TEMP 36.4; O2SAT 97
[2023-06-21] MEDS: Loratadine 10 MG TABLET PO (08:44)
[2023-06-21] MEDS: Ezetimibe 10 MG TABLET PO (08:45)
[2023-06-21] MEDS: Divalproex Sodium 250 MG TABLET.DR PO (08:45)
[2023-06-21] MEDS: Atorvastatin Calcium 10 MG TABLET PO (08:45)
--- NOTE | 2023-06-21 11:40 | P.PNPSI_ITS ---
Subjective Subjective Date of Service: 06/21/23 Reason For Visit: Bipolar disorder with psychosis Interim History: met with patient. Discussed with Nursing. Is hypomanic. Otherwise engaging well on the unit. Talked about having to get an extension on finding her taxes. Reports that she is sleeping well overall. Looking forward to discharge on Friday and hopeful she can be discharged in the morning as she has a manicure/nail appointment at 13:00. Mental Status Exam Mental Status Exam Narrative: Pleasant. Engaged. Casually dressed presented. Slightly pressured. Mood is elevated. No SI. No HI. No agitation or psychosis. Insight and judgment fair Diagnostics Vital Signs (24Hr): Vital Signs - 24 hr 06/20/23 18:00 06/21/23 08:44 Temperature 96.8 F 97.5 F Pulse Rate 100 103 H Respiratory Rate 18 15 Blood Pressure 143/71 H 123/60 Pulse Oximetry 93 97 Oxygen Delivery Method Room Air Room Air BMI result Body Mass Index 36.4 Labs 06/21/23 07:23 06/21/23 07:23 Labs: Laboratory Results - last 48 hr 06/21/23 07:23 WBC 7.9 RBC 5.26 Hgb 14.9 Hct 45.6 MCV 86.7 MCH 28.3 MCHC 32.7 RDW 15.8 Plt Count 294 MPV 10.6 Immature Gran % (Auto) 2.5 H Neut % (Auto) 43.0 L Lymph % (Auto) 39.2 [place] % (Auto) 9.0 Eos % (Auto) 5.5 H Baso % (Auto) 0.8 Lymph # (Auto) 3.1 [place] # (Auto) 0.7 Eos # (Auto) 0.4 Baso # (Auto) 0.1 Abs Immat Gran (auto) 0.20 H Absolute Neuts (auto) 3.4 Absolute Nucleated RBC 0.000 Nucleated RBC % (auto) 0.0 Sodium 143 Potassium 3.9 Chloride 107 Carbon Dioxide 28 Anion Gap 12 BUN 23 H Creatinine 0.77 Estim Creat Clear Calc 78.6 Estimated GFR > 60 Fasting Glucose 95 Calcium 9.3 Total Bilirubin 0.3 AST 20 ALT 27 Alkaline Phosphatase 78 Total Protein 7.0 Albumin 3.9 Valproic Acid 60.6 Medications Medications Current Medications Acetaminophen (Acetaminophen 325 Mg Tablet) 650 mg PO Q6H PRN PRN Reason: Headache/Pain Mild Scale (1-3) Al Hydroxide/Mg Hydroxide (Magnesium Hydrox/Alum Hydrox 30 Ml Oral.Susp) 30 ml PO Q6H PRN PRN Reason: Heartburn/Nausea Last Admin: 06/20/23 23:27 Dose: 30 ml Albuterol Sulfate (Albuterol Sulfate 90 Mcg 8 Gm Inhaler) 1 puff INHALE QID PRN PRN Reason: wheezing Last Admin: 06/17/23 00:03 Dose: 1 puff Atorvastatin Calcium (Atorvastatin Calcium 10 Mg Tablet) 10 mg PO DAILY [facility] Last Admin: 06/21/23 08:45 Dose: 10 mg Divalproex Sodium (Divalproex Sodium 250 Mg Tablet.) 250 mg PO DAILY [facility] Last Admin: 06/21/23 08:45 Dose: 250 mg Divalproex Sodium (Divalproex Sodium 500 Mg Tablet.) 500 mg PO BEDTIME [facility] Last Admin: 06/20/23 21:13 Dose: 500 mg Ezetimibe (Ezetimibe 10 Mg Tablet) 10 mg PO DAILY [facility] Last Admin: 06/21/23 08:45 Dose: 10 mg Epinephrine (Epinephrine 1 Mg/Ml Vial) 0.3 mg SUBCUT Q15M PRN PRN Reason: anaphylaxis Hydrocortisone (Hydrocortisone 2.5 % Rectal Cr 30 Gm Tube) 1 appl [place] BEDTIME PRN PRN Reason: hemorrhoids Hydroxyzine HCl (Hydroxyzine Hcl 25 Mg Tablet) 25 mg PO Q6H PRN PRN Reason: Anxiety Last Admin: 06/20/23 23:25 Dose: 25 mg Ibuprofen (Ibuprofen 800 Mg Tablet) 800 mg PO DAILY PRN PRN Reason: pain (scale score 7-10) Last Admin: 06/20/23 23:26 Dose: 800 mg Loratadine (Loratadine 10 Mg Tablet) 10 mg PO DAILY [facility] Last Admin: 06/21/23 08:44 Dose: 10 mg Lurasidone HCl (Lurasidone Hcl 40 Mg Tablet) 40 mg PO DAILY@1700 [facility] Last Admin: 06/20/23 17:17 Dose: 40 mg Magnesium Hydroxide (Milk Of Magnesia 30 Ml Oral.Susp) 30 ml PO DAILY PRN PRN Reason: Constipation Trazodone HCl (Trazodone Hcl 50 Mg Tablet) 50 mg PO BEDTIME MRX1 PRN PRN Reason: Insomnia Last Admin: 06/21/23 01:18 Dose: 50 mg Allergies Allergies Allergy/AdvReac Type Severity Reaction Status Date / Time cat dander Allergy Unknown Unknown Verified 06/13/23 22:26 ciprofloxacin Allergy Unknown gastritis Verified 06/13/23 22:26 gabapentin Allergy Unknown Anaphylaxis Verified 06/13/23 22:26 hornet venom [HORNETS] Allergy Unknown ANAPHYLACTI Verified 06/13/23 22:26 C latex Allergy Unknown Rash Verified 06/13/23 22:26 metronidazole Allergy Unknown GI distress Verified 06/13/23 22:26 pregabalin [From Lyrica] Allergy Unknown Angioedema Verified 06/13/23 22:26 sorbitol [SORBITOL] Allergy Unknown RASH Verified 06/13/23 22:26 sulfamethoxazole Allergy Unknown RASH Verified 06/13/23 22:26 [From BACTRIM] sulfasalazine Allergy Unknown Rash Verified 06/13/23 22:26 trimethoprim [From BACTRIM] Allergy Unknown RASH Verified 06/13/23 22:26 iodine Allergy Hives Verified 06/13/23 22:26 medrol dose pack Allergy Severe face Uncoded 06/14/23 04:08 swelling DUST Allergy Unknown SINUS Uncoded 06/14/23 04:08 INFECTION bandaids Allergy Unknown Uncoded 06/14/23 04:08 contrast Allergy rash on Uncoded 06/14/23 04:08 face betamethasone dipropriate AdvReac Severe rash Uncoded 06/14/23 04:08 Assessment & Plan Assessment & Plan (1) Bipolar disorder with psychotic features: Status: Acute Code(s): F31.9 - Bipolar disorder, unspecified Plan 68 yo female, hx of bipolar disorder with psychosis, discharge from [facility] [place], 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 Pt presenting sx of mahnaz/psychosis. Plan: Re-establish regime, Depakote, Latuda Diagnostics Collateral contact Milieu support. 06/15/23 Section XIIB. Encourage medication compliance Possible section VII need 06/16/23 no insight delusional ? 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 past mri brain showing ? small aneurysm consult placed ? sec 7 vs pt signed cv ? 06/18/23 pt started accepting depakote, no paranoid statements today;CV accepted and pt signed 3 day notice today 06/19/23 increase depakote to 250mg in am and 375 mg at night 06/20/23 cv with 3 days notice up on Friday 06/23. Increase depakote 250 mg in am and 500mg at bedtime; increase latuda 20mg BID with food lyme test ordered, CBC, CMP, and VPA level for am t/c to Dr contreras to discuss consult and ask to order CTA of brain 06/20: no changes Reason for continued inpatient stay Substantial Risk for: rapid decompensation Time Spent With Patient Time: Total time managing care of this patient today ____ minutes.
[2023-06-21] MEDS: Lurasidone HCl 40 MG TABLET PO (16:51)
[2023-06-21 18:00] VITALS: BP 147/68; PULSE 84; RESP 18; TEMP 36.3; O2SAT 94
[2023-06-21] MEDS: Divalproex Sodium 500 MG TABLET.DR PO (21:05)
[2023-06-21] MEDS: Magnesium Hydrox/Alum Hydrox 30 ML ORAL.SUSP PO (22:55)
[2023-06-22 08:05] VITALS: BP 133/65; PULSE 100; RESP 18; TEMP 36.1; O2SAT 97
[2023-06-22] MEDS: Divalproex Sodium 250 MG TABLET.DR PO (08:56)
[2023-06-22] MEDS: Loratadine 10 MG TABLET PO (08:57)
[2023-06-22] MEDS: Ezetimibe 10 MG TABLET PO (08:57)
[2023-06-22] MEDS: Atorvastatin Calcium 10 MG TABLET PO (08:57)
--- NOTE | 2023-06-22 09:58 | P.PNPSI_ITS ---
Subjective Subjective Date of Service: 06/22/23 Reason For Visit: Bipolar disorder with psychosis Interim History: Met with patient. Discussed with Nursing. Is hypomanic. Otherwise engaging well on the unit. visiting today. Sleeping well overall. Looking forward to discharge on Friday and hopeful she can be discharged in the morning as she has a manicure/nail appointment at 13:00. Review of Systems Review of Systems Yes all other systems are reviewed and are negative Mental Status Exam Mental Status Exam Narrative: Pleasant. Engaged. Casually dressed presented. Slightly pressured. Mood is elevated. No SI. No HI. No agitation or psychosis. Insight and judgment fair Diagnostics Vital Signs (24Hr): Vital Signs - 24 hr 06/21/23 18:00 06/22/23 08:05 Temperature 97.3 F 97.0 F Pulse Rate 84 100 Respiratory Rate 18 18 Blood Pressure 147/68 H 133/65 Pulse Oximetry 94 97 Oxygen Delivery Method Room Air Room Air BMI result Body Mass Index 36.4 Labs 06/21/23 07:23 06/21/23 07:23 Labs: Laboratory Results - last 48 hr 06/21/23 07:23 WBC 7.9 RBC 5.26 Hgb 14.9 Hct 45.6 MCV 86.7 MCH 28.3 MCHC 32.7 RDW 15.8 Plt Count 294 MPV 10.6 Immature Gran % (Auto) 2.5 H Neut % (Auto) 43.0 L Lymph % (Auto) 39.2 [place] % (Auto) 9.0 Eos % (Auto) 5.5 H Baso % (Auto) 0.8 Lymph # (Auto) 3.1 [place] # (Auto) 0.7 Eos # (Auto) 0.4 Baso # (Auto) 0.1 Abs Immat Gran (auto) 0.20 H Absolute Neuts (auto) 3.4 Absolute Nucleated RBC 0.000 Nucleated RBC % (auto) 0.0 Sodium 143 Potassium 3.9 Chloride 107 Carbon Dioxide 28 Anion Gap 12 BUN 23 H Creatinine 0.77 Estim Creat Clear Calc 78.6 Estimated GFR > 60 Fasting Glucose 95 Calcium 9.3 Total Bilirubin 0.3 AST 20 ALT 27 Alkaline Phosphatase 78 Total Protein 7.0 Albumin 3.9 Valproic Acid 60.6 Medications Medications Current Medications Acetaminophen (Acetaminophen 325 Mg Tablet) 650 mg PO Q6H PRN PRN Reason: Headache/Pain Mild Scale (1-3) Al Hydroxide/Mg Hydroxide (Magnesium Hydrox/Alum Hydrox 30 Ml Oral.Susp) 30 ml PO Q6H PRN PRN Reason: Heartburn/Nausea Last Admin: 06/21/23 22:55 Dose: 30 ml Albuterol Sulfate (Albuterol Sulfate 90 Mcg 8 Gm Inhaler) 1 puff INHALE QID PRN PRN Reason: wheezing Last Admin: 06/17/23 00:03 Dose: 1 puff Atorvastatin Calcium (Atorvastatin Calcium 10 Mg Tablet) 10 mg PO DAILY [facility] Last Admin: 06/22/23 08:57 Dose: 10 mg Divalproex Sodium (Divalproex Sodium 250 Mg Tablet.) 250 mg PO DAILY [facility] Last Admin: 06/22/23 08:56 Dose: 250 mg Divalproex Sodium (Divalproex Sodium 500 Mg Tablet.) 500 mg PO BEDTIME [facility] Last Admin: 06/21/23 21:05 Dose: 500 mg Ezetimibe (Ezetimibe 10 Mg Tablet) 10 mg PO DAILY [facility] Last Admin: 06/22/23 08:57 Dose: 10 mg Epinephrine (Epinephrine 1 Mg/Ml Vial) 0.3 mg SUBCUT Q15M PRN PRN Reason: anaphylaxis Hydrocortisone (Hydrocortisone 2.5 % Rectal Cr 30 Gm Tube) 1 appl [place] BEDTIME PRN PRN Reason: hemorrhoids Hydroxyzine HCl (Hydroxyzine Hcl 25 Mg Tablet) 25 mg PO Q6H PRN PRN Reason: Anxiety Last Admin: 06/20/23 23:25 Dose: 25 mg Ibuprofen (Ibuprofen 800 Mg Tablet) 800 mg PO DAILY PRN PRN Reason: pain (scale score 7-10) Last Admin: 06/20/23 23:26 Dose: 800 mg Loratadine (Loratadine 10 Mg Tablet) 10 mg PO DAILY [facility] Last Admin: 06/22/23 08:57 Dose: 10 mg Lurasidone HCl (Lurasidone Hcl 40 Mg Tablet) 40 mg PO DAILY@1700 [facility] Last Admin: 06/21/23 16:51 Dose: 40 mg Magnesium Hydroxide (Milk Of Magnesia 30 Ml Oral.Susp) 30 ml PO DAILY PRN PRN Reason: Constipation Trazodone HCl (Trazodone Hcl 50 Mg Tablet) 50 mg PO BEDTIME MRX1 PRN PRN Reason: Insomnia Last Admin: 06/21/23 22:55 Dose: 50 mg Allergies Allergies Allergy/AdvReac Type Severity Reaction Status Date / Time cat dander Allergy Unknown Unknown Verified 06/13/23 22:26 ciprofloxacin Allergy Unknown gastritis Verified 06/13/23 22:26 gabapentin Allergy Unknown Anaphylaxis Verified 06/13/23 22:26 hornet venom [HORNETS] Allergy Unknown ANAPHYLACTI Verified 06/13/23 22:26 C latex Allergy Unknown Rash Verified 06/13/23 22:26 metronidazole Allergy Unknown GI distress Verified 06/13/23 22:26 pregabalin [From Lyrica] Allergy Unknown Angioedema Verified 06/13/23 22:26 sorbitol [SORBITOL] Allergy Unknown RASH Verified 06/13/23 22:26 sulfamethoxazole Allergy Unknown RASH Verified 06/13/23 22:26 [From BACTRIM] sulfasalazine Allergy Unknown Rash Verified 06/13/23 22:26 trimethoprim [From BACTRIM] Allergy Unknown RASH Verified 06/13/23 22:26 iodine Allergy Hives Verified 06/13/23 22:26 medrol dose pack Allergy Severe face Uncoded 06/14/23 04:08 swelling DUST Allergy Unknown SINUS Uncoded 06/14/23 04:08 INFECTION bandaids Allergy Unknown Uncoded 06/14/23 04:08 contrast Allergy rash on Uncoded 06/14/23 04:08 face betamethasone dipropriate AdvReac Severe rash Uncoded 06/14/23 04:08 Assessment & Plan Assessment & Plan (1) Bipolar disorder with psychotic features: Status: Acute Code(s): F31.9 - Bipolar disorder, unspecified Plan 68 yo female, hx of bipolar disorder with psychosis, discharge from [facility] [place] [facility] 04/29/23, 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 Pt presenting sx of mahnaz/psychosis. Plan: Re-establish regime, Depakote, Latuda Diagnostics Collateral contact Milieu support. 06/15/23 Section XIIB. Encourage medication compliance Possible section VII need 06/16/23 no insight delusional ? 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 past mri brain showing ? small aneurysm consult placed ? sec 7 vs pt signed cv ? 06/18/23 pt started accepting depakote, no paranoid statements today;CV accepted and pt signed 3 day notice today 06/19/23 increase depakote to 250mg in am and 375 mg at night 06/20/23 cv with 3 days notice up on Friday 06/23. Increase depakote 250 mg in am and 500mg at bedtime; increase latuda 20mg BID with food lyme test ordered, CBC, CMP, and VPA level for am t/c to Dr contreras to discuss consult and ask to order CTA of brain 06/20: no changes 06/21: no changes Reason for continued inpatient stay Substantial Risk for: rapid decompensation Time Spent With Patient Time: Total time managing care of this patient today ____ minutes.
[2023-06-22] MEDS: Lurasidone HCl 40 MG TABLET PO (16:07)
[2023-06-22 18:00] VITALS: BP 136/78; PULSE 74; RESP 18; TEMP 36; O2SAT 96
[2023-06-22] MEDS: Divalproex Sodium 500 MG TABLET.DR PO (21:04)
[2023-06-22] MEDS: traZODone HCL 50 MG TABLET PO (21:05)
[2023-06-22] MEDS: Magnesium Hydrox/Alum Hydrox 30 ML ORAL.SUSP PO (21:06)
[2023-06-23] MEDS: traZODone HCL 50 MG TABLET PO ×2 (00:06→21:07)
[2023-06-23] MEDS: Magnesium Hydrox/Alum Hydrox 30 ML ORAL.SUSP PO ×2 (03:04→21:07)
[2023-06-23 06:00] VITALS: BP 110/58; PULSE 80; RESP 18; O2SAT 93
[2023-06-23] MEDS: Divalproex Sodium 250 MG TABLET.DR PO (08:16)
[2023-06-23] MEDS: Atorvastatin Calcium 10 MG TABLET PO (08:16)
[2023-06-23] MEDS: Loratadine 10 MG TABLET PO (08:16)
[2023-06-23] MEDS: Ezetimibe 10 MG TABLET PO (08:16)
--- NOTE | 2023-06-23 08:29 | HO.PSYCHPN ---
Subjective Subjective Date of Service: 06/23/23 Reason For Visit: Bipolar disorder with psychosis Subjective Notes: Section 12B Interim History: Pt slept most of the night. She is taking medications as prescribed. She reports plan is for d/c tomorrow and she is looking forward to that. She is brief in her answers and reports I'm doing very well, thank you. as she walks away. no behavioral concerns. Review of Systems Review of Systems No recent cold or flu-like illness or trauma Yes all other systems are reviewed and are negative and Unobtainable due to mental status Mental Status Exam Mental Status Exam Patient Appearance: Appropriate Patient Orientation: Person, Place and Situation Level of Consciousness: Drowsy and Alert Patient Behavior: Appropriate, Guarded, Cooperative, Anxious and Good Eye Contact Mood Description: Suspicious, Anxious, Labile and Apprehensive Affect Description: Constricted, Labile and Apprehensive Patient Cognition Impaired: Yes Ability to Follow Directions: Fair Speech Pattern: Clear, Perseverating, Spontaneous Speech, Rambling, Rapid, Excessive and Pressured Memory Description: Remote Impaired Diagnostics Vital Signs (24Hr): Vital Signs - 24 hr 06/22/23 18:00 Temperature 96.8 F Pulse Rate 74 Respiratory Rate 18 Blood Pressure 136/78 Pulse Oximetry 96 Oxygen Delivery Method Room Air BMI result Body Mass Index 36.4 Labs 06/21/23 07:23 06/21/23 07:23 Medications Medications Current Medications Acetaminophen (Acetaminophen 325 Mg Tablet) 650 mg PO Q6H PRN PRN Reason: Headache/Pain Mild Scale (1-3) Al Hydroxide/Mg Hydroxide (Magnesium Hydrox/Alum Hydrox 30 Ml Oral.Susp) 30 ml PO Q6H PRN PRN Reason: Heartburn/Nausea Last Admin: 06/23/23 03:04 Dose: 30 ml Albuterol Sulfate (Albuterol Sulfate 90 Mcg 8 Gm Inhaler) 1 puff INHALE QID PRN PRN Reason: wheezing Last Admin: 06/17/23 00:03 Dose: 1 puff Atorvastatin Calcium (Atorvastatin Calcium 10 Mg Tablet) 10 mg PO DAILY [facility] Last Admin: 06/23/23 08:16 Dose: 10 mg Divalproex Sodium (Divalproex Sodium 250 Mg Tablet.) 250 mg PO DAILY [facility] Last Admin: 06/23/23 08:16 Dose: 250 mg Divalproex Sodium (Divalproex Sodium 500 Mg Tablet.) 500 mg PO BEDTIME [facility] Last Admin: 06/22/23 21:04 Dose: 500 mg Ezetimibe (Ezetimibe 10 Mg Tablet) 10 mg PO DAILY [facility] Last Admin: 06/23/23 08:16 Dose: 10 mg Epinephrine (Epinephrine 1 Mg/Ml Vial) 0.3 mg SUBCUT Q15M PRN PRN Reason: anaphylaxis Hydrocortisone (Hydrocortisone 2.5 % Rectal Cr 30 Gm Tube) 1 appl SD BEDTIME PRN PRN Reason: hemorrhoids Hydroxyzine HCl (Hydroxyzine Hcl 25 Mg Tablet) 25 mg PO Q6H PRN PRN Reason: Anxiety Last Admin: 06/20/23 23:25 Dose: 25 mg Ibuprofen (Ibuprofen 800 Mg Tablet) 800 mg PO DAILY PRN PRN Reason: pain (scale score 7-10) Last Admin: 06/20/23 23:26 Dose: 800 mg Loratadine (Loratadine 10 Mg Tablet) 10 mg PO DAILY [facility] Last Admin: 06/23/23 08:16 Dose: 10 mg Lurasidone HCl (Lurasidone Hcl 40 Mg Tablet) 40 mg PO DAILY@1700 [facility] Last Admin: 06/22/23 16:07 Dose: 40 mg Magnesium Hydroxide (Milk Of Magnesia 30 Ml Oral.Susp) 30 ml PO DAILY PRN PRN Reason: Constipation Trazodone HCl (Trazodone Hcl 50 Mg Tablet) 50 mg PO BEDTIME MRX1 PRN PRN Reason: Insomnia Last Admin: 06/23/23 00:06 Dose: 50 mg Allergies Allergies Allergy/AdvReac Type Severity Reaction Status Date / Time cat dander Allergy Unknown Unknown Verified 06/13/23 22:26 ciprofloxacin Allergy Unknown gastritis Verified 06/13/23 22:26 gabapentin Allergy Unknown Anaphylaxis Verified 06/13/23 22:26 hornet venom [HORNETS] Allergy Unknown ANAPHYLACTI Verified 06/13/23 22:26 C latex Allergy Unknown Rash Verified 06/13/23 22:26 metronidazole Allergy Unknown GI distress Verified 06/13/23 22:26 pregabalin [From Lyrica] Allergy Unknown Angioedema Verified 06/13/23 22:26 sorbitol [SORBITOL] Allergy Unknown RASH Verified 06/13/23 22:26 sulfamethoxazole Allergy Unknown RASH Verified 06/13/23 22:26 [From BACTRIM] sulfasalazine Allergy Unknown Rash Verified 06/13/23 22:26 trimethoprim [From BACTRIM] Allergy Unknown RASH Verified 06/13/23 22:26 iodine Allergy Hives Verified 06/13/23 22:26 medrol dose pack Allergy Severe face Uncoded 06/14/23 04:08 swelling DUST Allergy Unknown SINUS Uncoded 06/14/23 04:08 INFECTION bandaids Allergy Unknown Uncoded 06/14/23 04:08 contrast Allergy rash on Uncoded 06/14/23 04:08 face betamethasone dipropriate AdvReac Severe rash Uncoded 06/14/23 04:08 Assessment & Plan Assessment & Plan (1) Bipolar disorder with psychotic features: Status: Acute Code(s): F31.9 - Bipolar disorder, unspecified Plan 68 yo female, hx of bipolar disorder with psychosis, discharge from [facility] [place] 04/29/23, 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 Pt presenting sx of mahnaz/psychosis. Plan: Re-establish regime, Depakote, Latuda [facility] Collateral contact Milieu support. 06/15/23 Section XIIB. Encourage medication compliance Possible section VII need 06/16/23 no insight delusional ? 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 past mri brain showing ? small aneurysm consult placed ? sec 7 vs pt signed cv ? 06/18/23 pt started accepting depakote, no paranoid statements today;CV accepted and pt signed 3 day notice today 06/19/23 increase depakote to 250mg in am and 375 mg at night 06/20/23 cv with 3 days notice up on Friday 06/23. Increase depakote 250 mg in am and 500mg at bedtime; increase latuda 20mg BID with food lyme test ordered, CBC, CMP, and VPA level for am t/c to Dr contreras to discuss consult and ask to order CTA of brain 06/20: no changes 06/21: no changes 06/22 continue tx. Reason for continued inpatient stay Substantial Risk for: inability to function Time Spent With Patient Time: Total time managing care of this patient today ____ minutes.
[2023-06-23 18:00] VITALS: BP 124/58; PULSE 92; RESP 18; TEMP 36.3; O2SAT 94
[2023-06-23] MEDS: Lurasidone HCl 40 MG TABLET PO (19:15)
[2023-06-23] MEDS: Divalproex Sodium 500 MG TABLET.DR PO (21:07)
[2023-06-23 22:34] LABS: Lyme Abs Screen <0.90 index
[2023-06-24 06:00] VITALS: BP 139/61; PULSE 96; RESP 18; TEMP 36.1; O2SAT 98
[2023-06-24] MEDS: Magnesium Hydrox/Alum Hydrox 30 ML ORAL.SUSP PO (06:19)
[2023-06-24] MEDS: Ezetimibe 10 MG TABLET PO (08:41)
[2023-06-24] MEDS: Atorvastatin Calcium 10 MG TABLET PO (08:41)
[2023-06-24] MEDS: Divalproex Sodium 250 MG TABLET.DR PO (08:41)
[2023-06-24] MEDS: Loratadine 10 MG TABLET PO (08:41)
--- NOTE | 2023-06-24 10:09 | P.DS_ITS ---
DS: Providers Provider Date of Service: 06/24/23 Date of admission: 06/14/23 11:40 Date of discharge: 06/24/23 Primary care physician: Unknown Physician Consults: 06/17/23 22:22 Consult to Neurology Routine Consulting Provider: [facility] Reason for consultation: MRI ? aneurysm previously atypical sx Has provider been notified: No DS: Diagnosis Discharge Diagnosis (1) Bipolar disorder with psychotic features: Status: Acute DS: Medications Discharge Medications Home Medications: Home Medications ?Medication ?Instructions ?Recorded ?Confirmed loratadine 10 mg tablet 10 mg PO DAILY 06/14/23 06/14/23 Previous Rx's ?Medication ?Instructions ?Recorded albuterol sulfate 90 mcg/actuation 1 inh inhalation QID PRN wheezing 04/29/23 aerosol inhaler #6.7 grams epinephrine 1 mg/mL injection 1 mg subcut Q20M PRN anaphylaxis 04/29/23 solution #30 mL ezetimibe 10 mg tablet 10 mg PO DAILY #30 tabs 04/29/23 ibuprofen 800 mg tablet 800 mg PO .Q.d. PRN pain (scale 05/07/23 score 7-10) 30 days #30 tabs Mental Status Exam Mental Status Exam Patient Appearance: Appropriate Patient Orientation: Person, Place and Situation Level of Consciousness: Drowsy and Alert Patient Behavior: Appropriate, Guarded, Cooperative, Anxious and Good Eye Contact Mood Description: Suspicious, Anxious, Labile and Apprehensive Affect Description: Constricted, Labile and Apprehensive Patient Cognition Impaired: Yes Ability to Follow Directions: Fair Speech Pattern: Clear, Perseverating, Spontaneous Speech, Rambling, Rapid, Excessive and Pressured Memory Description: Remote Impaired Data Data Completed and Pending Completed studies during hospitalization [Text1]: 06/21/23 07:23 WBC 7.9 RBC 5.26 Hgb 14.9 Hct 45.6 MCV 86.7 MCH 28.3 MCHC 32.7 RDW 15.8 Plt Count 294 MPV 10.6 Immature Gran % (Auto) 2.5 H Neut % (Auto) 43.0 L Lymph % (Auto) 39.2 Meriwether % (Auto) 9.0 Eos % (Auto) 5.5 H Baso % (Auto) 0.8 Lymph # (Auto) 3.1 Meriwether # (Auto) 0.7 Eos # (Auto) 0.4 Baso # (Auto) 0.1 Abs Immat Gran (auto) 0.20 H Absolute Neuts (auto) 3.4 Absolute Nucleated RBC 0.000 Nucleated RBC % (auto) 0.0 Sodium 143 Potassium 3.9 Chloride 107 Carbon Dioxide 28 Anion Gap 12 BUN 23 H Creatinine 0.77 Estim Creat Clear Calc 78.6 Estimated GFR > 60 Fasting Glucose 95 Calcium 9.3 Total Bilirubin 0.3 AST 20 ALT 27 Alkaline Phosphatase 78 Total Protein 7.0 Albumin 3.9 Valproic Acid 60.6 Lyme Screen IgG & IgM <0.90 Lyme Progressive Test Pending DS: Summary Hospital Course Hospital Course: HPI: 68 yo female, discharge from [facility] [place], history of bipolar disorder with psychosis. 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 She became aggressive, required 4 point restraint, reportedly had consumed wine, BAL<10, and was brought into the ER as she presented with symptoms of mahnaz, psychosis. Section XII was placed. Pt refused admission. Met with pt in the ER. She is about to begin to have lunch. 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 We reviewed briefly the reports received from the community and the concerns raised by these symptoms observed and tw role to assure her safety, thus admitting her to the unit. She declined conditional voluntary admission, but became cooperative, stating, yes, I understand your concerns, you are right, sign me in, but, I take no medicine and I have no illnesses. Call my doctor who is my . Pt was cooperative with her admission to [facility] with the team whom she is familiar with. HOSPITAL COURSE On the unit, pt was admitted on a CV and placed on 15 minutes checks for safety. Pt presented with erotomanic delusions of being in a relationship with her 's neurologist. She initially declined taking any medications, later agreed to restart combination of depakote and latuda. She gradually presented as calmer, visible on the unit, sleeping better. She denied SI/HI. However, her insight into mental illness, need for treatment is very limited. She also has very limited insight as to how others are concern with her intrusive behaviors. No visual or auditory hallucinations. No incidences of disruptive behaviors nor need for restraints. Given that pt no longer presented with imminent harm to self or others nor gravely disable due to psychiatric symptoms, pt was discharged once her 3 day notice was up. pt does need to follow up with neurology for cerebral aneurysm- advised to connect with different office than the one her goes to. Status at Discharge Cognitive/behavioral status at discharge: Pt with brighter, non labile affect. No SI/HI. No overt psychosis. No overt delusional content but pt also not fully forthcoming with some of her erotomatic ideas. No aggression towards self or others. Functional status at discharge: independent ambulation Overall status at discharge: patient is progressing back to baseline Time Spent with Patient Time attestation: Total time managing care of this patient today _35___ minutes. Time spent: Greater than 30 minutes Discharge Plan Discharge Anticipated Discharge Date/Time: 06/24/23 10:20 Patient Disposition: Home, Self-Care Discharge Diagnosis: Bipolar Disorder type 1, manic episode Referrals: [facility] [Other] - 1 Week (Request placed for your follow up appointment. Please follow up with [facility] for appointment date and time with your psychiatry provider. ) [facility] [Other] - 1 Week (Request placed with [facility] for follow up therapy appointment. Please follow up with the office directly for your appointment date and time. ) Dr Sandra Luna [Other] - 1 Week Discharge Medications: New divalproex 250 mg Tablet,Delayed Release (Dr/Ec) 250 mg PO DAILY Qty: 30 0RF atorvastatin 10 mg Tablet 10 mg PO DAILY Qty: 30 0RF ibuprofen 800 mg Tablet 800 mg PO DAILY PRN (Reason: pain (scale score 7-10)) Qty: 30 0RF divalproex 500 mg Tablet,Delayed Release (Dr/Ec) 500 mg PO BEDTIME Qty: 30 0RF lurasidone [Latuda] 40 mg Tablet 40 mg PO DAILY@1700 Qty: 30 0RF trazodone 50 mg Tablet 50 mg PO BEDTIME PRN (Reason: Insomnia) Qty: 30 0RF hydrocortisone 1 % aerosol,spray 1 appl topical BID PRN (Reason: hemorroids) Qty: 120 0RF Continued albuterol sulfate 90 mcg/actuation HFA aerosol inhaler 1 inh inhalation QID PRN (Reason: wheezing) Qty: 6.7 0RF epinephrine 1 mg/mL solution 1 mg subcut Q20M PRN (Reason: anaphylaxis) Qty: 30 0RF Rx Instructions: for 2 doses ezetimibe 10 mg Tablet 10 mg PO DAILY Qty: 30 0RF loratadine 10 mg tablet 10 mg PO DAILY Discontinued ibuprofen 800 mg tablet 800 mg PO .Q.d. PRN (Reason: pain (scale score 7-10)) 30 Days Qty: 30 6RF Discharge Orders: Discharge Order (Routine); Ordered 06/24/23 Ordered By: Hayley Garcia Diet: Regular diet Activity on Discharge: As tolerated Stand Alone Forms: Patient Portal Discharge page Print Language: Greenlandic Care Plan Goals: 1. Maintain mood 2. No SI/HI 3. Less aggression towards self or others 4. no intrusive nor harassing behaviors Health Concerns: Follow up with neurology for cerebral aneurism- recommendation to have CTA Plan of Treatment: 1. Take medications as prescribed 2. Go to nearest ED or call 911 in event of emergency. Assessment: Pt with less expansive mood, less hyper sexual behaviors. However, insight into behaviors secondary to mahnaz is poor. No aggression towards self or others. No psychosis. residual delusional content with jew and erotomatic delusions. Discharge Date/Time: 06/24/23 14:25
--- NOTE | 2023-06-24 15:24 | PC.NURSE ---
Patient escorted off unit at 1425 by TW. Alert and oriented. Verbalizes understanding of discharge. All instructions/follow up appointments reviewed with patient. Medications reviewed. Denies pain. Denies SI/HI/AVH. Discharge reports faxed to providers. Patient belongings accounted for. [place] [facility] [place] [facility]
== END 2023-06-24 14:25 | disposition home or self-care (01) | DRG 885 ==
LOC: HO.ED 22:30 → HO.PGERI 06-14 11:49
PROVIDERS: Clinical Nurse Specialist Psychiatric/Mental Health; Admitting Provider Clinical Nurse Specialist Psychiatric/Mental Health, Adult; Emergency Provider Emergency Medicine; Visit Provider Clinical Nurse Specialist Psychiatric/Mental Health, Adult
DX: F31.9 Bipolar disorder, unspecified (principal); F43.10 Post-traumatic stress disorder, unspecified; Z20.822 Contact with and (suspected) exposure to COVID-19; Z78.1 Physical restraint status; Z87.891 Personal history of nicotine dependence; Z79.899 Other long term (current) drug therapy
CPT/HCPCS: 36415; 80048; 80053; 80061; 80076; 80164; 80307; 81003; 82607; 82746; 83036; 83735; 84439; 84443; 85025; 86617; 86618; 87635; 93005; 99285; S9485

== ENCOUNTER → 2023-06-14 09:48 | Outpatient (BNV) | payer MEDICARE, SELFPAY | PROVIDERS: Admitting Provider Clinical Nurse Specialist Psychiatric/Mental Health, Adult; Emergency Provider Emergency Medicine; Visit Provider Internal Medicine Cardiovascular Disease | DX: F31.9 Bipolar disorder, unspecified (principal) | CPT/HCPCS: 93010 ==

== ENCOUNTER → 2023-06-14 11:40 | Outpatient (BNV) | payer MEDICARE, SELFPAY | PROVIDERS: Admitting Provider Clinical Nurse Specialist Psychiatric/Mental Health, Adult; Emergency Provider Emergency Medicine; Visit Provider Clinical Nurse Specialist Psychiatric/Mental Health, Adult | DX: F31.2 Bipolar disorder, current episode manic severe with psychotic features (principal) | CPT/HCPCS: 90792; 99231; 99232; 99239 ==

== ENCOUNTER → 2023-06-14 11:40 | Outpatient (BNV) | payer MEDICARE, SELFPAY | PROVIDERS: Admitting Provider Clinical Nurse Specialist Psychiatric/Mental Health, Adult; Emergency Provider Emergency Medicine; Visit Provider Psychiatry & Neurology Neurology | DX: I67.1 Cerebral aneurysm, nonruptured (principal); G93.40 Encephalopathy, unspecified | CPT/HCPCS: 99222 ==

== ENCOUNTER → 2023-06-14 11:40 | Outpatient (BNV) | payer MEDICARE, SELFPAY | PROVIDERS: Admitting Provider Clinical Nurse Specialist Psychiatric/Mental Health, Adult; Emergency Provider Emergency Medicine; Visit Provider Psychiatry & Neurology Psychiatry | DX: F31.2 Bipolar disorder, current episode manic severe with psychotic features (principal) | CPT/HCPCS: 99232 ==

== ENCOUNTER 2023-07-15 13:12 | Inpatient (IN) | payer MEDICARE, SELFPAY ==
[2023-07-15 13:27] VITALS: BP 146/90; PULSE 106; O2SAT 95
[2023-07-15 13:30] VITALS: BP 148/88; PULSE 99; RESP 18; TEMP 36.2; O2SAT 94; BMI 32.9
--- NOTE | 2023-07-15 13:41 | ECG_ITS ---
Test Reason : AMS Blood Pressure : / mmHG Vent. Rate : 086 BPM Atrial Rate : 086 BPM P-R Int : 128 ms QRS Dur : 094 ms QT Int : 440 ms P-R-T Axes : 074 077 063 degrees QTc Int : 526 ms Normal sinus rhythm Nonspecific T wave abnormality Prolonged QT Abnormal ECG When compared with ECG of 14-JUN-2023 09:48, Nonspecific T wave abnormality now evident in Inferior leads Nonspecific T wave abnormality, worse in Anterolateral leads QT has lengthened Referred By: Generic ED Physician Electronically Signed By:Nikos Brunner
--- NOTE | 2023-07-15 14:26 | ED_ITS ---
HPI - Psych General Chief Complaint: Behavioral Concerns Stated Complaint: SEC 12,DELUSIONS,BIPOLAR PER EMS Time Seen by Provider: 07/15/23 14:26 Source: patient and other (Section 12) Mode of arrival: EMS Limitations: other (Damari) History of Present Illness HPI Narrative: 68-year-old female with a history of bipolar disorder with psychotic features, IBS, GERD, hypercholesterolemia, who was sent to the emergency department on a Section 12. Patient was evaluated by [facility] and the following information was written on the Section 12: ?History of bipolar disorder with medications noncompliant and section 12 for inpatient level of care. Disorganized, delusional, noncompliant with meds, not caring for ADLs, some alcohol ? The patient told me that she went to a friend's house who then accused her of stealing books. She states that she had 300 dollars to give to Yolanda who she bought vitals from. She states that she is translating the Bible from [place] to [place]udian and the cramp from [place] the [place]ian to find discrepancies between the 2 baptist text. She also told me that we need to contact her neurologist, Dr. Salazar immediately so that he can help determine what medications she needs. The patient was hospitalized on our psychiatric service from 06/14/2023 until 06/23/2023 for bipolar type 1, manic episode. Following was documented in the patient's discharge note: Pt presented with erotomanic delusions of being in a relationship with her 's neurologist. Related Data Home Medications ?Medication ?Instructions ?Recorded ?Confirmed loratadine 10 mg tablet 10 mg PO DAILY 06/14/23 06/14/23 Previous Rx's ?Medication ?Instructions ?Recorded albuterol sulfate 90 mcg/actuation 1 inh inhalation QID PRN wheezing 04/29/23 aerosol inhaler #6.7 grams epinephrine 1 mg/mL injection 1 mg subcut Q20M PRN anaphylaxis 04/29/23 solution #30 mL ezetimibe 10 mg tablet 10 mg PO DAILY #30 tabs 04/29/23 atorvastatin 10 mg tablet 10 mg PO DAILY #30 tabs 06/24/23 divalproex 250 mg tablet,delayed 250 mg PO DAILY #30 tabs 06/24/23 release divalproex 500 mg tablet,delayed 500 mg PO BEDTIME #30 tabs 06/24/23 release hydrocortisone 1 % topical spray 1 appl topical BID PRN hemorroids 06/24/23 #120 mL ibuprofen 800 mg tablet 800 mg PO DAILY PRN pain (scale 06/24/23 score 7-10) #30 tabs lurasidone 40 mg tablet (Latuda) 40 mg PO DAILY@1700 #30 tabs 06/24/23 trazodone 50 mg tablet 50 mg PO BEDTIME PRN Insomnia #30 06/24/23 tabs Allergies Allergy/AdvReac Type Severity Reaction Status Date / Time cat dander Allergy Unknown Unknown Verified 07/15/23 13:33 ciprofloxacin Allergy Unknown gastritis Verified 07/15/23 13:33 gabapentin Allergy Unknown Anaphylaxis Verified 07/15/23 13:33 hornet venom [HORNETS] Allergy Unknown ANAPHYLACTI Verified 07/15/23 13:33 C latex Allergy Unknown Rash Verified 07/15/23 13:33 metronidazole Allergy Unknown GI distress Verified 07/15/23 13:33 pregabalin [From Lyrica] Allergy Unknown Angioedema Verified 07/15/23 13:33 sorbitol [SORBITOL] Allergy Unknown RASH Verified 07/15/23 13:33 sulfamethoxazole Allergy Unknown RASH Verified 07/15/23 13:33 [From BACTRIM] sulfasalazine Allergy Unknown Rash Verified 07/15/23 13:33 trimethoprim [From BACTRIM] Allergy Unknown RASH Verified 07/15/23 13:33 iodine Allergy Hives Verified 07/15/23 13:33 medrol dose pack Allergy Severe face Uncoded 07/15/23 13:33 swelling DUST Allergy Unknown SINUS Uncoded 07/15/23 13:33 INFECTION bandaids Allergy Unknown Uncoded 07/15/23 13:33 contrast Allergy rash on Uncoded 07/15/23 13:33 face betamethasone dipropriate AdvReac Severe rash Uncoded 07/15/23 13:33 Review of Systems 2 Review of Systems: Yes all other systems are reviewed and are negative PMFSH Past Medical History Medical History Vulvodynia Adjustment disorder with mixed anxiety and depressed mood Other screening mammogram IBS (irritable bowel syndrome) Depression GERD (gastroesophageal reflux disease) Hypercholesterolemia Lung nodule Proctalgia fugax Pelvic floor dysfunction Anal sphincter incompetence Gallstones Chronic bilateral low back pain without sciatica Acute allergic rhinitis Surgical History Hx of colonoscopy Hx of tonsillectomy Family History Family History Mother Diabetes Pancreatic cancer Kidney problem Father Lung cancer Brother Peripheral vascular disease Brother CAD (coronary artery disease) Brother No problems noted. Sister Diabetes Sister Depression Maternal Grandmother Diabetes Hypertension Stroke Maternal Grandfather Lung disease Tuberculosis Other Colon cancer Ovarian cancer Stomach cancer Uterine cancer Social History Social History Household Members: Spouse Housing: House Do you presently have visiting nurse or other home services: No Alcohol intake: current Alcohol intake frequency: 0-2 drinks per day Alcohol type: beer and hard liquor Comment: s1 Patient Tobacco Use Status: Former Tobacco user Quit Date: 2016 Tobacco use type: Cigarette Cigarette Packs Per Day: 0.5 Cigarettes Per Day: 10.0 Years Smoked: 45 Smoked in Last 30 Days: Yes e-Cigarette/Vaping Use: Never Used Second Hand Smoke Exposure: No Use of substances other than those prescribed or required for medical reasons: No Advance Directives: Yes Advance Directives on File: Yes Advance Directives Date on File: 10/10/21 service: No Sexual orientation: Straight/Heterosexual Physical Exam 2 Vital Signs: Vital Signs: Last Vital Signs Temp 97.2 F 07/15/23 13:30 Pulse 99 07/15/23 13:30 Resp 18 07/15/23 13:30 BP 148/88 H 07/15/23 13:30 Pulse Ox 94 07/15/23 13:30 O2 Del Method Room Air 07/15/23 13:30 BMI result Body Mass Index 32.9 Vital signs revealed an elevated blood pressure of 148/88 otherwise Exam: General: Awake, patient has pressured speech, content of her speech is delusional with baptist tones Head: Normocephalic, atraumatic EENT: PERRL, Lids normal, sclera normal, conjunctiva normal, nose normal , ears normal, throat without erythema or exudates Neck: Supple, no adenopathy Lung: breath sounds symmetric, no wheezing, rales or rhonchi Chest: symmetric movement, nontender Heart: regular rate and rhythm, normal S1, S2 no murmurs or rubs Abdomen: soft, non-tender, nondistended, normal bowel sounds Back: no vertebral tenderness, no CVAT Extremities: no deformities, moves all extremities symmetrically Neuro: Awake, alert, oriented, normal speech, cranial nerves intact, moves all extremities symmetrically Psych: Pressured speech, delusional, is pleasant and cooperative Medical Decision Making Medical Decision Making MDM Narrative: 68-year-old female with a history of bipolar disorder with psychotic features, IBS, GERD, hypercholesterolemia, who was sent to the emergency department on a Section 12. Patient was evaluated by [facility] a placed on a Section 12 for decompensation of her bipolar disorder with disorganized delusional thoughts and not caring for herself. Patient has similar presentation and was hospitalized 07/14/2023 until 07/24/2023. Patient's vital signs did reveal an elevated blood pressure. The patient's exam is consistent with damari and delusional thinking with baptist overtones. Differential diagnosis: ?Includes but is not limited to damari, decompensation bipolar disorder, noncompliance with medications, electrolyte abnormalities, anemia Following evaluation was ordered: CBC, CMP, urinalysis, urine drug screen, ethanol level, valproic acid level, 12 EKG Course: 14:23 My interpretation patient's laboratory evaluation is as follows: CBC was normal. CMP was normal. Other tests pending. At the end of my shift, patient's care was turned over to my colleague, Dr. Seema Ledesma. Admission/Observation Consideration of admission/observation: Escalation of care including admission/observation considered Lab Data MDM Lab Attestation statement: I reviewed the patient's lab results. 07/15/23 14:31 07/15/23 14:31 Labs: Lab Results 07/15/23 Range/Units 14:31 WBC 8.2 (4.8-10.8) X10*3/uL RBC 4.79 (4.20-5.50) X10*6/uL Hgb 14.0 (12.0-16.0) g/dl Hct 41.8 (37.0-47.0) % MCV 87.3 (80.0-98.0) fL MCH 29.2 (27.0-33.0) pg MCHC 33.5 (31.0-35.0) g/dl RDW 16.9 H (11.0-16.0) % Plt Count 270 (160-400) X10*3/uL MPV 10.1 (9.4-12.3) fL Immature Gran % (Auto) 0.6 H (0.0-0.4) % Neut % (Auto) 59.2 (45-73) % Lymph % (Auto) 26.9 (20-40) % Posey % (Auto) 8.4 (2-11) % Eos % (Auto) 4.3 H (0-4) % Baso % (Auto) 0.6 (0-2) % Lymph # (Auto) 2.2 (1.2-4.9) X10*3/uL Posey # (Auto) 0.7 (0.1-1.2) X10*3/uL Eos # (Auto) 0.4 (0.0-0.4) X10*3/uL Baso # (Auto) 0.1 (0.0-0.2) X10*3/uL Abs Immat Gran (auto) 0.05 H (0.00-0.03) X10*3/uL Absolute Neuts (auto) 4.9 (2.0-8.3) x10*3/uL Absolute Nucleated RBC 0.000 (0.0-0.012) X10*3/uL Nucleated RBC % (auto) 0.0 (0.0-0.2) /100WBC Sodium 143 (135-145) mmol/L Potassium 3.3 (3.3-5.1) mmol/L Chloride 108 (96-108) mmol/L Carbon Dioxide 25 (22-29) mmol/L Anion Gap 13 (12-20) BUN 21 H (9-16) mg/dL Creatinine 0.80 (0.5-1.4) mg/dL Estim Creat Clear Calc 68.4 Estimated GFR > 60 Random Glucose 115 (60-115) mg/dL Calcium 9.5 (8.4-10.2) mg/dL Total Bilirubin 0.3 (0.0-1.0) mg/dL AST 21 (5-31) U/L ALT 14 (0-31) U/L Alkaline Phosphatase 73 (39-117) U/L Total Protein 7.2 (6.5-8.0) g/dL Albumin 4.1 (3.5-5.0) g/dL External Record Review External record reviewed: Inpatient record (Last psychiatric visits) and Other (Section 12 filled out by [facility]) Chronic Conditions Patient?s care impacted by: Other (Bipolar disorder) Discharge Plan Discharge Clinical Impression: Damari, Delusions Patient Disposition: Still a Patient Prescriptions: No Action albuterol sulfate 90 mcg/actuation HFA aerosol inhaler 1 inh inhalation QID PRN (Reason: wheezing) Qty: 6.7 0RF epinephrine 1 mg/mL solution 1 mg subcut Q20M PRN (Reason: anaphylaxis) Qty: 30 0RF Rx Instructions: for 2 doses ezetimibe 10 mg Tablet 10 mg PO DAILY Qty: 30 0RF loratadine 10 mg tablet 10 mg PO DAILY divalproex 250 mg Tablet,Delayed Release (Dr/Ec) 250 mg PO DAILY Qty: 30 0RF atorvastatin 10 mg Tablet 10 mg PO DAILY Qty: 30 0RF ibuprofen 800 mg Tablet 800 mg PO DAILY PRN (Reason: pain (scale score 7-10)) Qty: 30 0RF divalproex 500 mg Tablet,Delayed Release (Dr/Ec) 500 mg PO BEDTIME Qty: 30 0RF lurasidone [Latuda] 40 mg Tablet 40 mg PO DAILY@1700 Qty: 30 0RF trazodone 50 mg Tablet 50 mg PO BEDTIME PRN (Reason: Insomnia) Qty: 30 0RF hydrocortisone 1 % aerosol,spray 1 appl topical BID PRN (Reason: hemorroids) Qty: 120 0RF Print Language: Bermudian
[2023-07-15 14:36] LABS: MANUAL DIFF FLAG NO
[2023-07-15 14:38] LABS: Basophils Absolute Auto 0.1 X10*3/uL (0.0-0.2); Basophils Percent Auto 0.6 % (0-2); Eosinophils Absolute Auto 0.4 X10*3/uL (0.0-0.4); Eosinophils Percent Auto 4.3 % (0-4); Hematocrit 41.8 % (37.0-47.0); Imm Gran Abs Auto 0.05 X10*3/uL (0.00-0.03); Imm Gran Pct Auto 0.6 % (0.0-0.4); Lymphocytes Absolute Auto 2.2 X10*3/uL (1.2-4.9); Lymphocytes Percent Auto 26.9 % (20-40); Mean Corpuscular HGB Conc 33.5 g/dl (31.0-35.0); Mean Corpuscular Hemoglobin 29.2 pg (27.0-33.0); Mean Corpuscular Volume 87.3 fL (80.0-98.0); Mean Platelet Volume 10.1 fL (9.4-12.3); Monocytes Absolute Auto 0.7 X10*3/uL (0.1-1.2); Monocytes Percent Auto 8.4 % (2-11); Neutrophils Absolute Auto 4.9 x10*3/uL (2.0-8.3); Neutrophils Percent Auto 59.2 % (45-73); Platelet Count 270 X10*3/uL (160-400); Red Blood Count 4.79 X10*6/uL (4.20-5.50); Red Cell Distribution Width 16.9 % (11.0-16.0); White Blood Count 8.2 X10*3/uL (4.8-10.8)
[2023-07-15 14:56] LABS: Alanine Aminotransferase 14 U/L (0-31); Albumin Level 4.1 g/dL (3.5-5.0); Alkaline Phosphatase 73 U/L (39-117); Anion Gap 13 (12-20); Aspartate Amino Transferase 21 U/L (5-31); Bilirubin Total 0.3 mg/dL (0.0-1.0); Blood Urea Nitrogen 21 mg/dL (9-16); Calcium 9.5 mg/dL (8.4-10.2); Carbon Dioxide 25 mmol/L (22-29); Chloride 108 mmol/L (96-108); Creatinine Clr Calc Pharmacy 68.4; Estimated Glomerular Filt Rate > 60; Glucose Random 115 mg/dL (60-115); Potassium 3.3 mmol/L (3.3-5.1); Sodium 143 mmol/L (135-145); Total Protein 7.2 g/dL (6.5-8.0)
[2023-07-15 17:17] LABS: Ethanol < 10 mg/dL
[2023-07-15 18:48] LABS: Influenza A PCR NEGATIVE (Negative); Influenza B PCR NEGATIVE (Negative); Resp Syncy Virus RNA Qual PCR NEGATIVE (Negative); SARS COV2 PCR INHOUSE NEGATIVE (Negative)
--- NOTE | 2023-07-15 19:43 | PC.NURSE ---
patient appears to remain resting at rpesent respirations are even and unllabored patient appears in no distress.
[2023-07-15] MEDS: Loratadine 10 MG TABLET PO (22:03)
[2023-07-15] MEDS: Divalproex Sodium 500 MG TABLET.DR PO (22:03)
[2023-07-15] MEDS: Lurasidone HCl 20 MG TABLET PO (22:09)
[2023-07-16 03:07] VITALS: BP 143/74; PULSE 68; RESP 16; TEMP 36.2; O2SAT 95
[2023-07-16 03:22] LABS: Appearance Urine Cloudy; Color Urine Yellow; Glucose Urine UA Negative (Negative); Leukocyte Esterase Urine Negative (Negative); Nitrite Urine Negative (Negative); Urine Blood Negative (Negative); Urine Ketones Negative (Negative); Urine Protein Negative (Neg-Trace)
[2023-07-16 03:35] LABS: Amphetamine Screen Urine Not Detected (Not Detect); Barbiturates, Urine Not Detected (Not Detect); Benzodiazepines Screen Urine Not Detected (Not Detect); Buprenorphine Scr Not Detected (Not Detect); Cannabinoid Screen Urine Not Detected (Not Detect); Cocaine Screen Urine Not Detected (Not Detect); Fentanyl, urine Not Detected (Not Detect); Methadone Screen, Urine Not Detected (Not Detect); Opiate Screen Urine Not Detected (Not Detect); Oxycodone Screen Urine Not Detected (Not Detect); Phencyclidine Screen Urine Not Detected (Not Detect)
--- NOTE | 2023-07-16 05:15 | PC.NURSE ---
Pt sleeping at the bedside. Noted to be awaken on and off throughout the night and sit at the bedside. No apparent distress noted. Breaths are even regular and unlabored with equal chest rises. Monitoring is ongoing.
--- NOTE | 2023-07-16 07:31 | PC.NURSE ---
Assumed care of patient at 0645. Patient is observed sitting in there bed. No signs of distress observed. Breathing is equal and unlabored. Will continue plan of care.
[2023-07-16 07:56] VITALS: BP 173/62; PULSE 80; RESP 20; TEMP 36.4; O2SAT 95
[2023-07-16] MEDS: polyethylene glycoL 3350 17 GM POWD.PACK PO (08:10)
--- NOTE | 2023-07-16 08:18 | PC.NURSE ---
Patient requesting medication for constipation. MD made aware. MD with orders.
[2023-07-16] MEDS: Atorvastatin Calcium 10 MG TABLET PO (08:48)
[2023-07-16] MEDS: Divalproex Sodium 250 MG TABLET.DR PO (08:48)
[2023-07-16] MEDS: Ezetimibe 10 MG TABLET PO (08:48)
[2023-07-16] MEDS: diphenhydrAMINE HCL 25 MG CAPSULE 50 MG PO (09:28)
--- NOTE | 2023-07-16 11:16 | PC.NURSE ---
Informed MD of patients BP at 0814. No new orders. Will continue plan of care.
[2023-07-16 15:27] VITALS: BP 137/61; PULSE 85; RESP 14; TEMP 36.2; O2SAT 94
--- NOTE | 2023-07-16 17:05 | PC.NURSE ---
Nursing Communication Patient informed RN that home medications do not include: Latuda. Patient also reported that Depakote is 250mg PO HS and that she usually takes Benadryl 25mg PO PRN for sleep. made aware.
[2023-07-16] MEDS: Divalproex Sodium 500 MG TABLET.DR PO (20:37)
[2023-07-16 20:46] VITALS: BP 149/76; PULSE 82; RESP 17; TEMP 36.4; O2SAT 96
--- NOTE | 2023-07-17 | ECG_ITS ---
Test Reason : REPEAT Blood Pressure : / mmHG Vent. Rate : 071 BPM Atrial Rate : 071 BPM P-R Int : 132 ms QRS Dur : 090 ms QT Int : 394 ms P-R-T Axes : 066 079 052 degrees QTc Int : 428 ms Normal sinus rhythm Normal ECG When compared with ECG of 15-JUL-2023 16:32, Nonspecific T wave abnormality, improved in Inferior leads Nonspecific T wave abnormality no longer evident in Anterolateral leads QT has shortened Referred By: Delfin Desouza Electronically Signed By:Nikos Brunner
[2023-07-17 05:34] VITALS: BP 139/52; PULSE 76; RESP 17; TEMP 37.1; O2SAT 95
[2023-07-17] MEDS: Ezetimibe 10 MG TABLET PO (08:52)
[2023-07-17] MEDS: Atorvastatin Calcium 10 MG TABLET PO (08:52)
[2023-07-17] MEDS: Divalproex Sodium 250 MG TABLET.DR PO (08:52)
[2023-07-17] MEDS: Loratadine 10 MG TABLET PO (08:52)
[2023-07-17 09:10] VITALS: BP 132/73; PULSE 69; RESP 18; TEMP 36.8; O2SAT 93
--- NOTE | 2023-07-17 09:44 | PC.NURSE ---
Assumed care of patient at 0645. Patient is observed resting in her bed. No signs of distress observed. Breathing is even and unlabored. Will continue plan of care.
[2023-07-17] MEDS: guaiFENesin 100 MG/5 ML LIQUID PO (11:38)
[2023-07-17 14:45] VITALS: BP 136/67; PULSE 86; RESP 16; TEMP 36.2; O2SAT 96; BMI 37.8
[2023-07-17] MEDS: Ibuprofen 800 MG TABLET PO (16:40)
--- NOTE | 2023-07-17 17:48 | PC.ADMIT ---
Reyna is?68-year-old female admitted to at approx 13:00 from? [facility] [place] [facility], on a 12b, for manic dyregulation. She has history of bipolar disorder with psychotic features. Reyna was evaluated by [facility] and sent to the ED on a section 12. On interview Reyna says she's not sure why they took her to the hospital. I think my neighbors had something to do with it. I think [facility] called the ambulance. They told me I would come to the ED and have my medications fixed & then I would go home, but that was a lie. She is alert & oriented x4. Cooperative with admission process. Her affect is cheerful. She remains pleasant and cheerful. Reyna denies AVH/SI/HI. Admits to social drinking 1-2 drinks weekly. No s/s withdrawal. Denies other drug use, which is supported by negative tox screen in ED. No physical c/o offered other than some back pain from spinal stenosis. Patient is placed on 15 minute checks for safety.?
--- NOTE | 2023-07-17 18:21 | PC.ADMIT ---
Reyna is?68-year-old female admitted to at approx 14:45 from?[facility] [place] [place] [facility], on a 12b, for manic dyregulation. She has history of bipolar disorder with psychotic features. Reyna was evaluated by [facility] and sent to the ED on a section 12. On interview Reyna says she's not sure why they took her to the hospital. I think my neighbors had something to do with it. I think [facility] called the ambulance. They told me I would come to the ED and have my medications fixed & then I would go home, but that was a lie. She is alert & oriented x4. Cooperative with admission process. Her affect is cheerful. She remains pleasant and cheerful. Reyna denies AVH/SI/HI. Admits to social drinking 1-2 drinks weekly. No s/s withdrawal. Denies other drug use, which is supported by negative tox screen in ED. No physical c/o offered, other than some back pain from spinal stenosis. Patient is placed on 15 minute checks for safety.?
[2023-07-17] MEDS: Magnesium Hydrox/Alum Hydrox 30 ML ORAL.SUSP PO (19:43)
[2023-07-17] MEDS: Divalproex Sodium 500 MG TABLET.DR PO (19:43)
[2023-07-17 19:46] VITALS: BP 144/67; PULSE 97; RESP 17; TEMP 36.1; O2SAT 96
[2023-07-17] MEDS: Omeprazole 20 MG CAPSULE.DR PO (21:39)
[2023-07-17] MEDS: traZODone HCL 50 MG TABLET PO (22:04)
[2023-07-18 08:00] VITALS: BP 129/60; PULSE 76; RESP 16; TEMP 36.2; O2SAT 95
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
[2023-07-18 08:38] LABS: Ammonia 37 umol/L (13-55); Estimated Average Glucose 128 mg/dL; Hemoglobin A1c % 6.1 % (<6.0)
[2023-07-18 08:42] LABS: Valproate 50.2 mcg/mL (50.0-100.0)
[2023-07-18 08:45] LABS: Cholesterol 147 mg/dL (<200); HDL Cholesterol 48 mg/dL (>40); LDL Cholesterol Calculated 79 mg/dL (<100); Triglycerides 100 mg/dL (<150)
[2023-07-18] MEDS: guaiFENesin 100 MG/5 ML LIQUID PO ×2 (09:46→20:12)
[2023-07-18] MEDS: Divalproex Sodium 250 MG TABLET.DR PO (09:47)
[2023-07-18] MEDS: Loratadine 10 MG TABLET PO (09:47)
[2023-07-18] MEDS: Atorvastatin Calcium 10 MG TABLET PO (09:47)
[2023-07-18] MEDS: Omeprazole 20 MG CAPSULE.DR PO (09:47)
[2023-07-18] MEDS: ARIPiprazole 5 MG TABLET PO (12:40)
[2023-07-18 20:00] VITALS: BP 158/86; PULSE 103; RESP 18; TEMP 36.2; O2SAT 95
[2023-07-18] MEDS: Divalproex Sodium 500 MG TABLET.DR PO (20:11)
[2023-07-18] MEDS: diphenhydrAMINE HCL 25 MG CAPSULE 50 MG PO (20:43)
[2023-07-19] MEDS: Ibuprofen 800 MG TABLET PO (00:10)
[2023-07-19] MEDS: traZODone HCL 50 MG TABLET PO (00:10)
[2023-07-19 08:17] VITALS: BP 129/83; PULSE 78; RESP 16; TEMP 36.6; O2SAT 95
[2023-07-19] MEDS: Divalproex Sodium 250 MG TABLET.DR PO (08:41)
[2023-07-19] MEDS: Atorvastatin Calcium 10 MG TABLET PO (08:41)
[2023-07-19] MEDS: ARIPiprazole 5 MG TABLET PO (08:41)
[2023-07-19] MEDS: Omeprazole 20 MG CAPSULE.DR PO (08:41)
[2023-07-19] MEDS: Loratadine 10 MG TABLET PO (08:42)
--- NOTE | 2023-07-19 08:43 | P.PNPSI_ITS ---
Subjective Subjective Date of Service: 07/19/23 Reason For Visit: Manic Dysregulated Subjective Notes: Conditional Voluntary Interim History: 68yo reports tolerating abilify with no problem wanting to go on long acting injectable agreeable to abilify maintena though seems to think it will last 6 months - talkative and intrussive with other patients singing in hallway- overall pleasant and eventually redirectable feels great slept after trazodone last pm- Medication Compliance: Yes Side effects from medications: No Attending Groups: Yes Review of Systems Acute medical concerns: No Medical Review of Systems: unchanged Mental Status Exam Mental Status Exam Patient Appearance: Well Grooomed and Appropriate Patient Orientation: Person, Place and Time Level of Consciousness: Awake Patient Behavior: Talkative, Hyperactive, Distractible and Good Eye Contact Mood Description: Elated Affect Description: Expansive Patient Cognition Impaired: No Ability to Follow Directions: Fair Speech Pattern: Clear Hallucinations: None Thought Process: Racing Thought Content: positive for Tangential Depressive Symptoms: Difficulty Concentrating Abnormal Motor Activity Signs and Symptoms: Hyperactivity Judgement: Fair Diagnostics Vital Signs (24Hr): Vital Signs - 24 hr 07/18/23 20:00 Temperature 97.2 F Pulse Rate 103 H Respiratory Rate 18 Blood Pressure 158/86 H Pulse Oximetry 95 Oxygen Delivery Method Room Air BMI result Body Mass Index 37.8 Labs 07/15/23 14:31 07/15/23 14:31 Labs: Laboratory Results - last 48 hr 07/18/23 08:12 Estimat Average Glucose 128 Hemoglobin A1c % 6.1 H Ammonia 37 Triglycerides 100 Cholesterol 147 LDL Cholesterol, Calc 79 HDL Cholesterol 48 Valproic Acid 50.2 Medications Medications Current Medications Acetaminophen (Acetaminophen 325 Mg Tablet) 650 mg PO Q6H PRN PRN Reason: Headache/Pain Mild Scale (1-3) Al Hydroxide/Mg Hydroxide (Magnesium Hydrox/Alum Hydrox 30 Ml Oral.Susp) 30 ml PO Q6H PRN PRN Reason: Heartburn/Nausea Last Admin: 07/17/23 19:43 Dose: 30 ml Albuterol Sulfate (Albuterol Sulfate 90 Mcg 8 Gm Inhaler) 2 puff INHALE RQ4H PRN PRN Reason: Shortness of Breath Aripiprazole (Aripiprazole 5 Mg Tablet) 5 mg PO DAILY ARRON Atorvastatin Calcium (Atorvastatin Calcium 10 Mg Tablet) 10 mg PO DAILY ARRON Last Admin: 07/18/23 09:47 Dose: 10 mg Divalproex Sodium (Divalproex Sodium 250 Mg Tablet.) 250 mg PO DAILY [facility] Last Admin: 07/18/23 09:47 Dose: 250 mg Divalproex Sodium (Divalproex Sodium 500 Mg Tablet.) 500 mg PO BEDTIME [facility] Last Admin: 07/18/23 20:11 Dose: 500 mg Ezetimibe (Ezetimibe 10 Mg Tablet) 10 mg PO DAILY [facility] Last Admin: 07/18/23 12:19 Dose: Not Given Epinephrine (Epinephrine 1 Mg/Ml Vial) 1 mg SUBCUT Q20M PRN PRN Reason: anaphylaxis Guaifenesin (Guaifenesin 100 Mg/5 Ml Liquid) 5 ml PO Q6H PRN PRN Reason: congestion Last Admin: 07/18/23 20:12 Dose: 5 ml Ibuprofen (Ibuprofen 800 Mg Tablet) 800 mg PO DAILY PRN PRN Reason: pain (scale score 7-10) Last Admin: 07/19/23 00:10 Dose: 800 mg Loratadine (Loratadine 10 Mg Tablet) 10 mg PO DAILY [facility] Last Admin: 07/18/23 09:47 Dose: 10 mg Lorazepam (Lorazepam 0.5 Mg Tablet) 0.5 mg PO QID PRN PRN Reason: agitation/anxiety Magnesium Hydroxide (Milk Of Magnesia 30 Ml Oral.Susp) 30 ml PO DAILY PRN PRN Reason: Constipation Nicotine (Nicotine 21 Mg Patch.Td24) 21 mg TRANSDERMA DAILY PRN PRN Reason: smoking cessation Non-Formulary Medication (Semaglutide [Ozempic]) 1 mg SUBCUT QWEEK [facility] Omeprazole (Omeprazole 20 Mg Capsule.) 20 mg PO DAILY@0900 [facility] Last Admin: 07/18/23 09:47 Dose: 20 mg Polyethylene Glycol (Polyethylene Glycol 3350 17 Gm Powd.Pack) 17 gm PO DAILY PRN PRN Reason: Constipation Trazodone HCl (Trazodone Hcl 50 Mg Tablet) 50 mg PO BEDTIME PRN PRN Reason: insomnia Last Admin: 07/19/23 00:10 Dose: 50 mg Trazodone HCl (Trazodone Hcl 50 Mg Tablet) 50 mg PO BEDTIME MRX1 PRN PRN Reason: Insomnia Allergies Allergies Allergy/AdvReac Type Severity Reaction Status Date / Time cat dander Allergy Unknown Unknown Verified 07/15/23 13:33 ciprofloxacin Allergy Unknown gastritis Verified 07/15/23 13:33 gabapentin Allergy Unknown Anaphylaxis Verified 07/15/23 13:33 hornet venom [HORNETS] Allergy Unknown ANAPHYLACTI Verified 07/15/23 13:33 C latex Allergy Unknown Rash Verified 07/15/23 13:33 metronidazole Allergy Unknown GI distress Verified 07/15/23 13:33 pregabalin [From Lyrica] Allergy Unknown Angioedema Verified 07/15/23 13:33 sorbitol [SORBITOL] Allergy Unknown RASH Verified 07/15/23 13:33 sulfamethoxazole Allergy Unknown RASH Verified 07/15/23 13:33 [From BACTRIM] sulfasalazine Allergy Unknown Rash Verified 07/15/23 13:33 trimethoprim [From BACTRIM] Allergy Unknown RASH Verified 07/15/23 13:33 iodine Allergy Hives Verified 07/15/23 13:33 medrol dose pack Allergy Severe face Uncoded 07/15/23 13:33 swelling DUST Allergy Unknown SINUS Uncoded 07/15/23 13:33 INFECTION bandaids Allergy Unknown Uncoded 07/15/23 13:33 contrast Allergy rash on Uncoded 07/15/23 13:33 face betamethasone dipropriate AdvReac Severe rash Uncoded 07/15/23 13:33 Assessment & Plan Assessment & Plan (1) Bipolar disorder: Status: Acute Code(s): F31.9 - Bipolar disorder, unspecified Plan 68 yo female, hx of bipolar disorder with psychosis, hx of aneurysm(?) recently [place] [facility] [place] who returns for 3rd admission in 4 months for reported disorganized behaviors in the community. Patient is mildly hypomanic, verbose but mostly organized in speech and behavior. She does not know why she was taken to the hospital and denies that she was acting in an unsafe way. Patient says that she went to go visit acquaintance of hers that she met on the geriatric unit, [place], at his [facility] and they discussed a transaction for some Bibles or other books. While there, a staff woman came out and accused the patient of trying to steal from [place]; patient said she explain this was not true and about the transaction but the other woman would not accept it and call the police. Patient said the police never came and she just walked home. The next day she accidentally went to an appointment at [facility] and there the staff person found her to be disheveled, manic and disorganized; patient went home but [facility] called for an ambulance and she was brought to the hospital. Patient said she was surprised the ambulance came at all and initially thought it was for her who has Parkinson's. Patient says she has been taking her medication. She denies that she has been drinking alcohol other than 1 or 2 drinks at most a day. She refuses to sign a CV. Patient however agrees to try Abilify and likes the idea that she can get on long-acting injectable medication which she says she will take if she tolerates Abilify. Formulation/reasoning: Patient has a history of manic episodes and unsafe behaviors in the community. Currently she presents with hypomania but overall seems to be grossly organized. However, she minimizes and mis-categorizes past behaviors, denying psychiatric illness. Patient reports she has been taking her medication in the community; however, it is not clear if this is accurate as Depakote level was obtained after patient had been on it in the emergency room, being given Depakote. Thus it is possible that she has improved since having come to the emergency room and been on medication since 07/14. Given her history, will need to pursue collateral to find out what exactly prompted crisis sending her to the hospital. -patient has a history of non medication adherence. She agrees to try Abilify and get on long-acting Abilify Maintena if she finds it tolerable and helpful. -regarding Depakote, patient says she would like to only be on 1 medication for her symptoms; she agrees to continue with Depakote but hopes to be switched to Abilify only Plan: 12B Q [address] 500 mg q.h.s. (patient used to be on 500 mg b.i.d.) Abilify 5 mg daily If tolerates Abilify, will start Abilify Maintena 400 mg Q 28 days (with p.o. overlap) DC'd Latuda patient says she no longer takes this (patient used to be prescribed 60 mg) 07/19/23 tolerated ablify getting 400mg- maintena but seems quite manic- may need more po? Patient educated on: medication risk/benefits Informed Consent: further education needed Reason for continued inpatient stay Substantial Risk for: rapid decompensation Time Spent With Patient Time: Total time managing care of this patient today ____ minutes.
[2023-07-19] MEDS: Ezetimibe 10 MG TABLET PO (11:30)
[2023-07-19] MEDS: guaiFENesin 100 MG/5 ML LIQUID PO ×2 (12:22→20:40)
[2023-07-19] MEDS: ARIPiprazole ER 400 MG SUSER.SYR IM (13:48)
[2023-07-19 20:00] VITALS: BP 170/80; PULSE 80; RESP 16; TEMP 36.4; O2SAT 94
[2023-07-19] MEDS: Divalproex Sodium 500 MG TABLET.DR PO (20:40)
[2023-07-20] MEDS: Ibuprofen 800 MG TABLET PO (06:53)
[2023-07-20] MEDS: polyethylene glycoL 3350 17 GM POWD.PACK PO (06:55)
[2023-07-20 08:12] VITALS: BP 166/83; PULSE 81; RESP 16; TEMP 36.1; O2SAT 96
[2023-07-20] MEDS: ARIPiprazole 5 MG TABLET PO (08:59)
[2023-07-20] MEDS: Atorvastatin Calcium 10 MG TABLET PO (08:59)
[2023-07-20] MEDS: Omeprazole 20 MG CAPSULE.DR PO (09:00)
[2023-07-20] MEDS: Loratadine 10 MG TABLET PO (09:00)
[2023-07-20] MEDS: Divalproex Sodium 250 MG TABLET.DR PO (09:00)
[2023-07-20] MEDS: Ezetimibe 10 MG TABLET PO (09:00)
--- NOTE | 2023-07-20 10:44 | HO.PSYCHPN ---
Subjective Subjective Date of Service: 07/20/23 Reason For Visit: Manic Dysregulated Subjective Notes: Conditional Voluntary Medical Problems Affecting Mental Status: No Interim History: 68 yo with manic episode- seems to have limited insight- less intrussive today - and took long aciting inj ablify - but needs another injection next month- also remain on po abilify for now though doubt 5mg make much difference- She reports sleeping on trazodone- all night- Medication Compliance: Yes Side effects from medications: No Attending Groups: Yes Review of Systems Acute medical concerns: No Medical Review of Systems: unchanged Mental Status Exam Mental Status Exam Patient Appearance: Well Grooomed and Appropriate Patient Orientation: Person, Place, Time and Situation Level of Consciousness: Awake and Alert Patient Behavior: Appropriate, Talkative and Cooperative Mood Description: Expansive Patient Cognition Impaired: No Ability to Follow Directions: Good Speech Pattern: Clear Thought Content: positive for Circumstantial Abnormal Motor Activity Signs and Symptoms: Hyperactivity Judgement: Fair Diagnostics Vital Signs (24Hr): Vital Signs - 24 hr 07/19/23 20:00 07/20/23 08:12 Temperature 97.5 F 97.0 F Pulse Rate 80 81 Respiratory Rate 16 16 Blood Pressure 170/80 H 166/83 H Pulse Oximetry 94 96 Oxygen Delivery Method Room Air Room Air BMI result Body Mass Index 37.8 Labs 07/15/23 14:31 07/15/23 14:31 Medications Medications Current Medications Acetaminophen (Acetaminophen 325 Mg Tablet) 650 mg PO Q6H PRN PRN Reason: Headache/Pain Mild Scale (1-3) Al Hydroxide/Mg Hydroxide (Magnesium Hydrox/Alum Hydrox 30 Ml Oral.Susp) 30 ml PO Q6H PRN PRN Reason: Heartburn/Nausea Last Admin: 07/17/23 19:43 Dose: 30 ml Albuterol Sulfate (Albuterol Sulfate 90 Mcg 8 Gm Inhaler) 2 puff INHALE RQ4H PRN PRN Reason: Shortness of Breath Aripiprazole (Aripiprazole 5 Mg Tablet) 5 mg PO DAILY [facility] Last Admin: 07/20/23 08:59 Dose: 5 mg Aripiprazole (Aripiprazole Er 400 Mg Suser.Syr) 400 mg IM Q28D [facility] Last Admin: 07/19/23 13:48 Dose: 400 mg Atorvastatin Calcium (Atorvastatin Calcium 10 Mg Tablet) 10 mg PO DAILY [facility] Last Admin: 07/20/23 08:59 Dose: 10 mg Divalproex Sodium (Divalproex Sodium 250 Mg Tablet.) 250 mg PO DAILY [facility] Last Admin: 07/20/23 09:00 Dose: 250 mg Divalproex Sodium (Divalproex Sodium 500 Mg Tablet.) 500 mg PO BEDTIME [facility] Last Admin: 07/19/23 20:40 Dose: 500 mg Ezetimibe (Ezetimibe 10 Mg Tablet) 10 mg PO DAILY [facility] Last Admin: 07/20/23 09:00 Dose: 10 mg Epinephrine (Epinephrine 1 Mg/Ml Vial) 1 mg SUBCUT Q20M PRN PRN Reason: anaphylaxis Guaifenesin (Guaifenesin 100 Mg/5 Ml Liquid) 5 ml PO Q6H PRN PRN Reason: congestion Last Admin: 07/19/23 20:40 Dose: 5 ml Ibuprofen (Ibuprofen 800 Mg Tablet) 800 mg PO DAILY PRN PRN Reason: pain (scale score 7-10) Last Admin: 07/20/23 06:53 Dose: 800 mg Loratadine (Loratadine 10 Mg Tablet) 10 mg PO DAILY [facility] Last Admin: 07/20/23 09:00 Dose: 10 mg Lorazepam (Lorazepam 0.5 Mg Tablet) 0.5 mg PO QID PRN PRN Reason: agitation/anxiety Magnesium Hydroxide (Milk Of Magnesia 30 Ml Oral.Susp) 30 ml PO DAILY PRN PRN Reason: Constipation Nicotine (Nicotine 21 Mg Patch.Td24) 21 mg TRANSDERMA DAILY PRN PRN Reason: smoking cessation Omeprazole (Omeprazole 20 Mg Capsule.) 20 mg PO DAILY@0900 [facility] Last Admin: 07/20/23 09:00 Dose: 20 mg Polyethylene Glycol (Polyethylene Glycol 3350 17 Gm Powd.Pack) 17 gm PO DAILY PRN PRN Reason: Constipation Last Admin: 07/20/23 06:55 Dose: 17 gm Trazodone HCl (Trazodone Hcl 50 Mg Tablet) 50 mg PO BEDTIME PRN PRN Reason: insomnia Last Admin: 07/19/23 00:10 Dose: 50 mg Trazodone HCl (Trazodone Hcl 50 Mg Tablet) 50 mg PO BEDTIME MRX1 PRN PRN Reason: Insomnia Allergies Allergies Allergy/AdvReac Type Severity Reaction Status Date / Time cat dander Allergy Unknown Unknown Verified 07/15/23 13:33 ciprofloxacin Allergy Unknown gastritis Verified 07/15/23 13:33 gabapentin Allergy Unknown Anaphylaxis Verified 07/15/23 13:33 hornet venom [HORNETS] Allergy Unknown ANAPHYLACTI Verified 07/15/23 13:33 C latex Allergy Unknown Rash Verified 07/15/23 13:33 metronidazole Allergy Unknown GI distress Verified 07/15/23 13:33 pregabalin [From Lyrica] Allergy Unknown Angioedema Verified 07/15/23 13:33 sorbitol [SORBITOL] Allergy Unknown RASH Verified 07/15/23 13:33 sulfamethoxazole Allergy Unknown RASH Verified 07/15/23 13:33 [From BACTRIM] sulfasalazine Allergy Unknown Rash Verified 07/15/23 13:33 trimethoprim [From BACTRIM] Allergy Unknown RASH Verified 07/15/23 13:33 iodine Allergy Hives Verified 07/15/23 13:33 medrol dose pack Allergy Severe face Uncoded 07/15/23 13:33 swelling DUST Allergy Unknown SINUS Uncoded 07/15/23 13:33 INFECTION bandaids Allergy Unknown Uncoded 07/15/23 13:33 contrast Allergy rash on Uncoded 07/15/23 13:33 face betamethasone dipropriate AdvReac Severe rash Uncoded 07/15/23 13:33 Assessment & Plan Assessment & Plan (1) Bipolar disorder: Status: Acute Code(s): F31.9 - Bipolar disorder, unspecified Plan 68 yo female, hx of bipolar disorder with psychosis, hx of aneurysm(?) recently discharged from [facility]24/23 who returns for 3rd admission in 4 months for reported disorganized behaviors in the community. Patient is mildly hypomanic, verbose but mostly organized in speech and behavior. She does not know why she was taken to the hospital and denies that she was acting in an unsafe way. Patient says that she went to go visit acquaintance of hers that she met on the geriatric unit, [place], at his senior care and they discussed a transaction for some Bibles or other books. While there, a staff woman came out and accused the patient of trying to steal from [place]; patient said she explain this was not true and about the transaction but the other woman would not accept it and call the police. Patient said the police never came and she just walked home. The next day she accidentally went to an appointment at [facility] and there the staff person found her to be disheveled, manic and disorganized; patient went home but [facility] called for an ambulance and she was brought to the hospital. Patient said she was surprised the ambulance came at all and initially thought it was for her who has Parkinson's. Patient says she has been taking her medication. She denies that she has been drinking alcohol other than 1 or 2 drinks at most a day. She refuses to sign a CV. Patient however agrees to try Abilify and likes the idea that she can get on long-acting injectable medication which she says she will take if she tolerates Abilify. Formulation/reasoning: Patient has a history of manic episodes and unsafe behaviors in the community. Currently she presents with hypomania but overall seems to be grossly organized. However, she minimizes and mis-categorizes past behaviors, denying psychiatric illness. Patient reports she has been taking her medication in the community; however, it is not clear if this is accurate as Depakote level was obtained after patient had been on it in the emergency room, being given Depakote. Thus it is possible that she has improved since having come to the emergency room and been on medication since 07/14. Given her history, will need to pursue collateral to find out what exactly prompted crisis sending her to the hospital. -patient has a history of non medication adherence. She agrees to try Abilify and get on long-acting Abilify Maintena if she finds it tolerable and helpful. -regarding Depakote, patient says she would like to only be on 1 medication for her symptoms; she agrees to continue with Depakote but hopes to be switched to Abilify only Plan: 12B Q [address] 500 mg q.h.s. (patient used to be on 500 mg b.i.d.) Abilify 5 mg daily If tolerates Abilify, will start Abilify Maintena 400 mg Q 28 days (with p.o. overlap) DC'd [place] patient says she no longer takes this (patient used to be prescribed 60 mg) 07/19/23 tolerated ablify getting 400mg- maintena but seems quite manic- may need more po? 07/20/23 pt fairly focused on dc plan- not further change in medication- Patient educated on: medication risk/benefits Informed Consent: further education needed Reason for continued inpatient stay Substantial Risk for: rapid decompensation Time Spent With Patient Time: Total time managing care of this patient today ____ minutes.
[2023-07-20 20:00] VITALS: BP 121/65; PULSE 100; RESP 16; TEMP 36.2; O2SAT 97
[2023-07-20] MEDS: Divalproex Sodium 500 MG TABLET.DR PO (21:30)
[2023-07-20] MEDS: traZODone HCL 50 MG TABLET PO ×2 (21:30)
[2023-07-21 08:00] VITALS: BP 124/65; PULSE 88; RESP 18; TEMP 36.1; O2SAT 96
--- NOTE | 2023-07-21 09:22 | HO.PSYCHPN ---
Subjective Subjective Date of Service: 07/21/23 Reason For Visit: Manic Dysregulated Interim History: With patient; discussed with team; reviewed weekend notes Patient reports doing well, sleeping well, feeling in a good mood and also reports feeling stable and says this is the best I have ever felt. Patient denied any side effects from Abilify and wants to continue taking the long-acting injectable which she received over the weekend. Screen Handler reviewed risks/side effects of Abilify which patient understood and with which wanted to continue. She inquired if it comes in doses longer than a month such as 3 or 6 months and underwriter solicitation director provided education. Also discussed Depakote. Patient wondered if Abilify would be enough. Screen Handler explained it is possible but it is too early to tell and given that she has had several psychiatric hospitalizations over the past few months, recommended that she remain on both Abilify and Depakote for now and discuss with outpatient provider over subsequent months. Patient agrees with this plan. She is thankful for treatment and grateful for explanation of medication regimen. She would very much like to discharge tomorrow and return home Discussed her diagnosis and underwriter solicitation director agreed that PTSD can be a significant component of mood dysregulation; patient also agreed that she does seem to have psychotic and manic type episodes and conceded that whether she is aware of it or not, her behaviors during such episodes are prompting people in the community to call the police or crisis and thus she agrees with continuing treatment. Patient explained why sometimes she gets aggressive with the police were called and how it is a trigger for her given her history of trauma. Also discussed patient's generosity with money and maintaining boundaries on the unit as she had offered a peer money to help with his art work and was going to hire him to pain something for her. Patient discuss this logically and in a mature way understood the need for boundaries and discretion on the unit and agreed with not making any transactional arrangements (peer in question is actually a well-known artist). Patient explained her financial situation which is secure and from her report is being handled appropriately (dismissing some concerns about patient spending money during past manic episodes). Mental Status Exam Mental Status Exam Narrative: Pt is alert and oriented; behavior is cooperative, friendly and calm; patient is not in distress; dressed in casual attire with unkempt hair but adequate hygiene; mood is described as good and affect congruent; eye contact appropriate; Speech is a little verbose, but normal rate, volume and prosody and not pressured; no psychomotor agitation/retardation present; thought process is organized and goal directed; Thought content is on tx; otherwise pertinent to relevant topics and without any delusional content, paranoid ideations or grandiosity; denies any SI/HI. There is no evidence of perceptual disturbance. Patients insight and judgment appear intact. Diagnostics Vital Signs (24Hr): Vital Signs - 24 hr 07/20/23 20:00 Temperature 97.1 F Pulse Rate 100 Respiratory Rate 16 Blood Pressure 121/65 Pulse Oximetry 97 Oxygen Delivery Method Room Air BMI result Body Mass Index 37.8 Labs 07/15/23 14:31 07/15/23 14:31 Medications Medications Current Medications Acetaminophen (Acetaminophen 325 Mg Tablet) 650 mg PO Q6H PRN PRN Reason: Headache/Pain Mild Scale (1-3) Al Hydroxide/Mg Hydroxide (Magnesium Hydrox/Alum Hydrox 30 Ml Oral.Susp) 30 ml PO Q6H PRN PRN Reason: Heartburn/Nausea Last Admin: 07/17/23 19:43 Dose: 30 ml Albuterol Sulfate (Albuterol Sulfate 90 Mcg 8 Gm Inhaler) 2 puff INHALE RQ4H PRN PRN Reason: Shortness of Breath Aripiprazole (Aripiprazole 5 Mg Tablet) 5 mg PO DAILY [facility] Last Admin: 07/20/23 08:59 Dose: 5 mg Aripiprazole (Aripiprazole Er 400 Mg Suser.Syr) 400 mg IM Q28D [facility] Last Admin: 07/19/23 13:48 Dose: 400 mg Atorvastatin Calcium (Atorvastatin Calcium 10 Mg Tablet) 10 mg PO DAILY [facility] Last Admin: 07/20/23 08:59 Dose: 10 mg Divalproex Sodium (Divalproex Sodium 250 Mg Tablet.Dr) 250 mg PO DAILY [facility] Last Admin: 07/20/23 09:00 Dose: 250 mg Divalproex Sodium (Divalproex Sodium 500 Mg Tablet.Dr) 500 mg PO BEDTIME [facility] Last Admin: 07/20/23 21:30 Dose: 500 mg Ezetimibe (Ezetimibe 10 Mg Tablet) 10 mg PO DAILY [facility] Last Admin: 07/20/23 09:00 Dose: 10 mg Epinephrine (Epinephrine 1 Mg/Ml Vial) 1 mg SUBCUT Q20M PRN PRN Reason: anaphylaxis Guaifenesin (Guaifenesin 100 Mg/5 Ml Liquid) 5 ml PO Q6H PRN PRN Reason: congestion Last Admin: 07/19/23 20:40 Dose: 5 ml Ibuprofen (Ibuprofen 800 Mg Tablet) 800 mg PO DAILY PRN PRN Reason: pain (scale score 7-10) Last Admin: 07/20/23 06:53 Dose: 800 mg Loratadine (Loratadine 10 Mg Tablet) 10 mg PO DAILY [facility] Last Admin: 07/20/23 09:00 Dose: 10 mg Lorazepam (Lorazepam 0.5 Mg Tablet) 0.5 mg PO QID PRN PRN Reason: agitation/anxiety Magnesium Hydroxide (Milk Of Magnesia 30 Ml Oral.Susp) 30 ml PO DAILY PRN PRN Reason: Constipation Nicotine (Nicotine 21 Mg Patch.Td24) 21 mg TRANSDERMA DAILY PRN PRN Reason: smoking cessation Omeprazole (Omeprazole 20 Mg Capsule.Dr) 20 mg PO DAILY@0900 [facility] Last Admin: 07/20/23 09:00 Dose: 20 mg Polyethylene Glycol (Polyethylene Glycol 3350 17 Gm Powd.Pack) 17 gm PO DAILY PRN PRN Reason: Constipation Last Admin: 07/20/23 06:55 Dose: 17 gm Trazodone HCl (Trazodone Hcl 50 Mg Tablet) 50 mg PO BEDTIME PRN PRN Reason: insomnia Last Admin: 07/20/23 21:30 Dose: 50 mg Trazodone HCl (Trazodone Hcl 50 Mg Tablet) 50 mg PO BEDTIME MRX1 PRN PRN Reason: Insomnia Last Admin: 07/20/23 21:30 Dose: 50 mg Allergies Allergies Allergy/AdvReac Type Severity Reaction Status Date / Time cat dander Allergy Unknown Unknown Verified 07/15/23 13:33 ciprofloxacin Allergy Unknown gastritis Verified 07/15/23 13:33 gabapentin Allergy Unknown Anaphylaxis Verified 07/15/23 13:33 hornet venom [HORNETS] Allergy Unknown ANAPHYLACTI Verified 07/15/23 13:33 C latex Allergy Unknown Rash Verified 07/15/23 13:33 metronidazole Allergy Unknown GI distress Verified 07/15/23 13:33 pregabalin [From Lyrica] Allergy Unknown Angioedema Verified 07/15/23 13:33 sorbitol [SORBITOL] Allergy Unknown RASH Verified 07/15/23 13:33 sulfamethoxazole Allergy Unknown RASH Verified 07/15/23 13:33 [From BACTRIM] sulfasalazine Allergy Unknown Rash Verified 07/15/23 13:33 trimethoprim [From BACTRIM] Allergy Unknown RASH Verified 07/15/23 13:33 iodine Allergy Hives Verified 07/15/23 13:33 medrol dose pack Allergy Severe face Uncoded 07/15/23 13:33 swelling DUST Allergy Unknown SINUS Uncoded 07/15/23 13:33 INFECTION bandaids Allergy Unknown Uncoded 07/15/23 13:33 contrast Allergy rash on Uncoded 07/15/23 13:33 face betamethasone dipropriate AdvReac Severe rash Uncoded 07/15/23 13:33 Assessment & Plan Assessment & Plan (1) Bipolar disorder: Status: Acute Code(s): F31.9 - Bipolar disorder, unspecified Plan HPI: 68 yo female, hx of bipolar disorder with psychosis, hx of aneurysm(?) [place] [facility] who returns for 3rd admission in 4 months for reported disorganized behaviors in the community. Patient is mildly hypomanic, verbose but mostly organized in speech and behavior. She does not know why she was taken to the hospital and denies that she was acting in an unsafe way. Patient says that she went to go visit acquaintance of hers that she met on the geriatric unit, [place], at his shelter and they discussed a transaction for some Bibles or other books. While there, a staff woman came out and accused the patient of trying to steal from [place]; patient said she explain this was not true and about the transaction but the other woman would not accept it and call the police. Patient said the police never came and she just walked home. The next day she accidentally went to an appointment at [facility] and there the staff person found her to be disheveled, manic and disorganized; patient went home but [facility] called for an ambulance and she was brought to the hospital. Patient said she was surprised the ambulance came at all and initially thought it was for her who has Parkinson's. Patient says she has been taking her medication. She denies that she has been drinking alcohol other than 1 or 2 drinks at most a day. She refuses to sign a CV. Patient however agrees to try Abilify and likes the idea that she can get on long-acting injectable medication which she says she will take if she tolerates Abilify. Formulation/reasoning: Patient has a history of manic episodes and unsafe behaviors in the community. Currently she presents with hypomania but overall seems to be grossly organized. However, she minimizes and mis-categorizes past behaviors, denying psychiatric illness. Patient reports she has been taking her medication in the community; however, it is not clear if this is accurate as Depakote level was obtained after patient had been on it in the emergency room, being given Depakote. Thus it is possible that she has improved since having come to the emergency room and been on medication since 07/14. Given her history, will need to pursue collateral to find out what exactly prompted crisis sending her to the hospital. -patient has a history of non medication adherence. She agrees to try Abilify and get on long-acting Abilify Maintena if she finds it tolerable and helpful. -regarding Depakote, patient says she would like to only be on 1 medication for her symptoms; she agrees to continue with Depakote but hopes to be switched to Abilify only 07/19/23 tolerated ablify getting 400mg- maintena but seems quite manic- may need more po? 07/20/23 pt fairly focused on dc plan- not further change in medication- 07/20 Patient reports doing well, sleeping well, feeling in a good mood and also reports feeling stable and says this is the best I have ever felt. Patient denied any side effects from Abilify and wants to continue taking the long-acting injectable which she received over the weekend. Screen Handler reviewed risks/side effects of Abilify which patient understood and with which wanted to continue. She inquired if it comes in doses longer than a month such as 3 or 6 months and underwriter solicitation director provided education. Also discussed Depakote. Patient wondered if Abilify would be enough. Screen Handler explained it is possible but it is too early to tell and given that she has had several psychiatric hospitalizations over the past few months, recommended that she remain on both Abilify and Depakote for now and discuss with outpatient provider over subsequent months. Patient agrees with this plan. She is thankful for treatment and grateful for explanation of medication regimen. She would very much like to discharge tomorrow and return home Discussed her diagnosis and underwriter solicitation director agreed that PTSD can be a significant component of mood dysregulation; patient also agreed that she does seem to have psychotic and manic type episodes and conceded that whether she is aware of it or not, her behaviors during such episodes are prompting people in the community to call the police or crisis and thus she agrees with continuing treatment. -she agrees to increase and overlap Abilify p.o. for 3 weeks; moving it to bedtime since it made her a little drowsy Impression: Patient has remained stable. Although somewhat verbose, she does not have any manic symptoms and speech is not pressured. She is organized in both speech and behavior, logical and linear. Patient also demonstrating good insight and judgment into her psychiatric symptoms and not only accepts her need for medication, asked for and received long-acting injectable which should certainly help with stability in the community. Patient is on a 12B which is due tomorrow. She is friendly, cooperative and calm and has been in good behavioral and impulse control throughout her time in the unit, appropriate with peers and staff. Patient is on stabilizing meds and returns home where she lives with her . Patient is not in imminent risk for harm to self or others; she is appropriate to return to the community for treatment and her request for discharge honored Plan: 12B Q 15 minute checks Continue Depakote DR 250 mg daily Continue Depakote DR 500 mg q.h.s. (patient used to be on 500 mg b.i.d.) increased to Abilify 10 mg qhs; will overlap Maintena for 3 weeks Received Abilify Maintena 400 mg Q 28 days on 07/19/2023 PRASHANT'dannielle Scott patient says she no longer takes this (patient used to be prescribed 60 mg) Patient educated on: diagnosis, medication risk/benefits, therapeutic strategies and medical condition Informed Consent: understands Reason for continued inpatient stay Substantial Risk for: stable for discharge Time Spent With Patient Time: Total time managing care of this patient today ____ minutes.
[2023-07-21] MEDS: Divalproex Sodium 250 MG TABLET.DR PO (09:25)
[2023-07-21] MEDS: Atorvastatin Calcium 10 MG TABLET PO (09:25)
[2023-07-21] MEDS: Ezetimibe 10 MG TABLET PO (09:25)
[2023-07-21] MEDS: Loratadine 10 MG TABLET PO (09:25)
[2023-07-21] MEDS: guaiFENesin 100 MG/5 ML LIQUID PO (09:25)
[2023-07-21] MEDS: Omeprazole 20 MG CAPSULE.DR PO (09:25)
[2023-07-21] MEDS: ARIPiprazole 5 MG TABLET PO (09:25)
[2023-07-21] MEDS: ARIPiprazole 10 MG TABLET PO (19:52)
[2023-07-21] MEDS: Divalproex Sodium 500 MG TABLET.DR PO (19:52)
[2023-07-21] MEDS: traZODone HCL 50 MG TABLET PO (19:52)
[2023-07-21 20:00] VITALS: BP 150/69; PULSE 107; RESP 17; TEMP 36.6; O2SAT 95
[2023-07-22 08:00] VITALS: BP 138/64; PULSE 76; RESP 18; TEMP 36.2
[2023-07-22] MEDS: Divalproex Sodium 250 MG TABLET.DR PO (08:13)
[2023-07-22] MEDS: Ezetimibe 10 MG TABLET PO (08:13)
[2023-07-22] MEDS: Atorvastatin Calcium 10 MG TABLET PO (08:13)
[2023-07-22] MEDS: Loratadine 10 MG TABLET PO (08:13)
[2023-07-22] MEDS: Omeprazole 20 MG CAPSULE.DR PO (08:14)
[2023-07-22] MEDS: guaiFENesin 100 MG/5 ML LIQUID PO (08:42)
--- NOTE | 2023-07-22 10:56 | P.DS_ITS ---
DS: Providers Provider Date of Service: 07/22/23 Date of admission: 07/17/23 13:11 Date of discharge: 07/22/23 Primary care physician: Sandra Cruz MD Attending physician on admission: Delfin Desouza Attending physician on discharge: Delfin Desouza DS: Diagnosis Discharge Diagnosis (1) Bipolar disorder: Status: Acute DS: Medications Discharge Medications Home Medications: Home Medications ?Medication ?Instructions ?Recorded ?Confirmed loratadine 10 mg tablet 10 mg PO DAILY 07/15/23 07/15/23 semaglutide 1 mg/dose (4 mg/3 mL) 1 mg subcut QWEEK 07/17/23 07/17/23 subcutaneous pen injector (Ozempic) Previous Rx's ?Medication ?Instructions ?Recorded epinephrine 1 mg/mL injection 1 mg subcut Q20M PRN anaphylaxis 04/29/23 solution #30 mL ezetimibe 10 mg tablet 10 mg PO DAILY #30 tabs 04/29/23 atorvastatin 10 mg tablet 10 mg PO DAILY #30 tabs 06/24/23 ibuprofen 800 mg tablet 800 mg PO DAILY PRN pain (scale 06/24/23 score 7-10) #30 tabs albuterol sulfate 90 mcg/actuation 2 puff inhalation RQ4H PRN 07/22/23 aerosol inhaler (Ventolin HFA) Shortness Of Breath 30 days #6.7 grams aripiprazole 10 mg tablet 10 mg PO BEDTIME 21 days #21 tabs 07/22/23 aripiprazole 400 mg suspension, 400 mg IM Q28D 26 days #1 ea 07/22/23 extended rel.intramuscular syringe (Elena New) divalproex 250 mg tablet,delayed 250 mg PO DAILY 30 days #30 tabs 07/22/23 release divalproex 500 mg tablet,delayed 500 mg PO BEDTIME 30 days #30 tabs 07/22/23 release trazodone 50 mg tablet 50 mg PO BEDTIME PRN insomnia 30 07/22/23 days #30 tabs Mental Status Exam Mental Status Exam Narrative: Pt is alert and oriented; behavior is cooperative, friendly and calm; patient is not in distress; dressed in casual attire with unkempt hair but adequate hygiene; mood is described as good and affect congruent; eye contact appropriate; Speech is a little verbose, but normal rate, volume and prosody and not pressured; no psychomotor agitation/retardation present; thought process is organized and goal directed; Thought content is on tx; otherwise pertinent to relevant topics and without any delusional content, paranoid ideations or grandiosity; denies any SI/HI. There is no evidence of perceptual disturbance. Patients insight and judgment intact. Data Data Completed and Pending Completed studies during hospitalization [Text1]: 07/15/23 07/15/23 07/16/23 14:31 18:00 03:13 WBC 8.2 RBC 4.79 Hgb 14.0 Hct 41.8 MCV 87.3 MCH 29.2 MCHC 33.5 RDW 16.9 H Plt Count 270 MPV 10.1 Immature Gran % (Auto) 0.6 H Neut % (Auto) 59.2 Lymph % (Auto) 26.9 [place] % (Auto) 8.4 Eos % (Auto) 4.3 H Baso % (Auto) 0.6 Lymph # (Auto) 2.2 [place] # (Auto) 0.7 Eos # (Auto) 0.4 Baso # (Auto) 0.1 Abs Immat Gran (auto) 0.05 H Absolute Neuts (auto) 4.9 Absolute Nucleated RBC 0.000 Nucleated RBC % (auto) 0.0 Sodium 143 Potassium 3.3 Chloride 108 Carbon Dioxide 25 Anion Gap 13 BUN 21 H Creatinine 0.80 Estim Creat Clear Calc 68.4 Estimated GFR > 60 Random Glucose 115 Estimat Average Glucose Hemoglobin A1c % Calcium 9.5 Total Bilirubin 0.3 AST 21 ALT 14 Alkaline Phosphatase 73 Ammonia Total Protein 7.2 Albumin 4.1 Triglycerides Cholesterol LDL Cholesterol, Calc HDL Cholesterol Urine Color Yellow Urine Appearance Cloudy Urine pH 6.0 Ur Specific Panther Burn 1.020 Urine Protein Negative Urine Glucose (UA) Negative Urine Ketones Negative Urine Blood Negative Urine Nitrite Negative Ur Leukocyte Esterase Negative Urine Opiates Screen Not Detected Ur Buprenorphine Scrn Not Detected Ur Oxycodone Screen Not Detected Urine Methadone Screen Not Detected Urine Fentanyl Screen Not Detected Ur Barbiturates Screen Not Detected Valproic Acid Ur Phencyclidine Scrn Not Detected Ur Amphetamines Screen Not Detected U Benzodiazepines Scrn Not Detected Urine Cocaine Screen Not Detected U Marijuana (THC) Screen Not Detected Ethyl Alcohol < 10 Influenza Type A (PCR) NEGATIVE Influenza Type B (PCR) NEGATIVE RSV RNA Qual (PCR) NEGATIVE SARS-CoV-2 RNA (RT-PCR) NEGATIVE 07/18/23 08:12 WBC RBC Hgb Hct MCV MCH MCHC RDW Plt Count MPV Immature Gran % (Auto) Neut % (Auto) Lymph % (Auto) Cabell % (Auto) Eos % (Auto) Baso % (Auto) Lymph # (Auto) [place] # (Auto) Eos # (Auto) Baso # (Auto) Abs Immat Gran (auto) Absolute Neuts (auto) Absolute Nucleated RBC Nucleated RBC % (auto) Sodium Potassium Chloride Carbon Dioxide Anion Gap BUN Creatinine Estim Creat Clear Calc Estimated GFR Random Glucose Estimat Average Glucose 128 Hemoglobin A1c % 6.1 H Calcium Total Bilirubin AST ALT Alkaline Phosphatase Ammonia 37 Total Protein Albumin Triglycerides 100 Cholesterol 147 LDL Cholesterol, Calc 79 HDL Cholesterol 48 Urine Color Urine Appearance Urine pH Ur Specific Panther Burn Urine Protein Urine Glucose (UA) Urine Ketones Urine Blood Urine Nitrite Ur Leukocyte Esterase Urine Opiates Screen Ur Buprenorphine Scrn Ur Oxycodone Screen Urine Methadone Screen Urine Fentanyl Screen Ur Barbiturates Screen Valproic Acid 50.2 Ur Phencyclidine Scrn Ur Amphetamines Screen U Benzodiazepines Scrn Urine Cocaine Screen U Marijuana (THC) Screen Ethyl Alcohol Influenza Type A (PCR) Influenza Type B (PCR) RSV RNA Qual (PCR) SARS-CoV-2 RNA (RT-PCR) DS: Summary Hospital Course Hospital Course: HPI: 68 yo female, hx of bipolar disorder with psychosis, hx of aneurysm(?) recently discharged from [facility] 06/24/23 who returns for 3rd admission in 4 months for reported disorganized behaviors in the community. Patient is mildly hypomanic, verbose but mostly organized in speech and behavior. She does not know why she was taken to the hospital and denies that she was acting in an unsafe way. Patient says that she went to go visit acquaintance of hers that she met on the geriatric unit, Donovan, at his [facility] and they discussed a transaction for some Bibles or other books. While there, a staff woman came out and accused the patient of trying to steal from Donovan; patient said she explain this was not true and about the transaction but the other woman would not accept it and call the police. Patient said the police never came and she just walked home. The next day she accidentally went to an appointment at [facility] and there the staff person found her to be disheveled, manic and disorganized; patient went home but [facility] called for an ambulance and she was brought to the hospital. Patient said she was surprised the ambulance came at all and initially thought it was for her who has Parkinson's. Patient says she has been taking her medication. She denies that she has been drinking alcohol other than 1 or 2 drinks at most a day. She refuses to sign a CV. Patient however agrees to try Abilify and likes the idea that she can get on long-acting injectable medication which she says she will take if she tolerates Abilify. Formulation/reasoning: Patient has a history of manic episodes and unsafe behaviors in the community. Currently she presents with hypomania but overall seems to be grossly organized. However, she minimizes and mis-categorizes past behaviors, denying psychiatric illness. Patient reports she has been taking her medication in the community; however, it is not clear if this is accurate as Depakote level was obtained after patient had been on it in the emergency room, being given Depakote. Thus it is possible that she has improved since having come to the emergency room and been on medication since 07/14. Given her history, will need to pursue carole donahue to find out what exactly prompted crisis sending her to the hospital. -patient has a history of non medication adherence. She agreesd to try Abilify and get on long-acting Abilify Maintena if she finds it tolerable and helpful. -regarding Depakote, patient says she would like to only be on 1 medication for her symptoms; she agrees to continue with Depakote but hopes to be switched to Abilify only Hospital course: Patient refused to sign in and was on a 12 B. She was hypomanic on admission with moderately pressured speech but pleasant and cooperative. Although she had limited insight into her behaviors in the community that have resulted in several admissions over past 3 months, she agreed to medication management including trying Abilify and getting on long-acting Abilify Maintena if she finds it tolerable and helpful; she also agreed to continue with Depakote but ultimately hopes to be on monotherapy. Over subsequent days continued to have manic symptoms but was overall able to stay in good behavioral and impulse control and was appropriate with peers and staff. Patient tolerated Abilify and did end up getting Abilify Maintena. Patient's symptoms improved and hypomania resolved. Also insight significantly improved and while repairer typewriter agreed that PTSD can be a significant component of mood dysregulation, patient agreed that she does have psychotic and manic type episodes and conceded that whether she is aware of it or not, her behaviors during such episodes are prompting people in the community to call the police or crisis and thus she needs medication. Patient's 72 hours was coming due. She remained in good behavioral and impulse control, engaged in treatment and appropriate with peers and staff. She was sleeping well, felt in a good mood and felt stable, saying it is the best she ever felt. Enrolled Agent reviewed risks/side effects of Abilify which patient understood and with which wanted to continue. She inquired if it comes in doses longer than a month such as 3 or 6 months and repairer typewriter provided education. Also discussed Depakote. Patient wondered if Abilify would be enough. Enrolled Agent explained it is possible but it is too early to tell and given that she has had several psychiatric hospitalizations over the past few months, recommended that she remain on both Abilify and Depakote for now and discuss with outpatient provider over subsequent months. Patient agrees with this plan. She is thankful for treatment and grateful for explanation of medication regimen. She would very much like to discharge tomorrow and return home. Although still somewhat verbose, hypomania remained resolved and she is organized in both speech behavior, logical and linear, demonstrating good insight and judgment into her psychiatric symptoms. She returns home where she lives with her . Patient is not in imminent risk for harm to self or others; she is appropriate to return to the community for treatment and her request for d ischarge honored Medication: Depcarlton KWON 250 mg daily [place] KWON 500 mg q.h.s. (patient used to be on 500 mg b.i.d.) Abilify 10 mg qhs kait overlap Maintena for 3 weeks Received Abilify Maintena 400 mg Q 28 days on 07/19/2023 Kianna Scott Time spent discussing smoking cessation with patient: 3 to 10 minutes Status at Discharge Functional status at discharge: independent ambulation Overall status at discharge: patient is back to baseline Time Spent with Patient Time attestation: Total time managing care of this patient today _45___ minutes. Time spent: Greater than 30 minutes Discharge Plan Discharge Anticipated Discharge Date/Time: 07/22/23 11:30 Patient Disposition: Home, Self-Care Discharge Diagnosis: Bipolar I disorder Referrals: [facility] Therapy with Colby Patino [Other] - 07/26/23 11:30 am [facility] Psychiatry w Soheila Iraheta [Other] - 08/19/23 10:20 am Abilify Injection at [facility] [Other] - 08/13/23 10:00 am (Call the day before to confirm that the pharmacist will be there to administer the shot. ) Sandra Cruz MD [Primary Care Provider] - 1 Week Discharge Medications: New aripiprazole 10 mg Tablet 10 mg PO BEDTIME 21 Days Qty: 21 0RF Abilify Maintena 400 mg Suspension,Extended Rel Syring 400 mg IM Q28D 26 Days Qty: 1 0RF Rx Instructions: Due on 08/14/23 albuterol sulfate [Ventolin HFA] 90 mcg/actuation Hfa Aerosol Inhaler 2 puff inhalation RQ4H PRN (Reason: Shortness Of Breath) 30 Days Qty: 6.7 0RF Continued epinephrine 1 mg/mL solution 1 mg subcut Q20M PRN (Reason: anaphylaxis) Qty: 30 0RF Rx Instructions: for 2 doses ezetimibe 10 mg Tablet 10 mg PO DAILY Qty: 30 0RF atorvastatin 10 mg Tablet 10 mg PO DAILY Qty: 30 0RF ibuprofen 800 mg Tablet 800 mg PO DAILY PRN (Reason: pain (scale score 7-10)) Qty: 30 0RF loratadine 10 mg tablet 10 mg PO DAILY Ozempic 1 mg/dose (4 mg/3 mL) pen injector 1 mg subcut QWEEK divalproex 250 mg Tablet,Delayed Release (Dr/Ec) 250 mg PO DAILY 30 Days Qty: 30 0RF trazodone 50 mg tablet 50 mg PO BEDTIME PRN (Reason: insomnia) 30 Days Qty: 30 0RF divalproex 500 mg Tablet,Delayed Release (Dr/Ec) 500 mg PO BEDTIME 30 Days Qty: 30 0RF Discontinued lurasidone 20 mg tablet 20 mg PO QPM Discharge Orders: Discharge Order (Routine); Ordered 07/22/23 Ordered By: Delfin Desouza Diet: Regular diet Activity on Discharge: As tolerated Stand Alone Forms: Patient Portal Discharge page Print Language: Cape Verdean Care Plan Goals: Maintain mood and safe behaviors Take medications as prescribed Practice coping skills Continue with outpatient providers and reach out to them as needed Health Concerns: Mood stability and behaviors Hyperlipidemia Hx of brain aneurism Hx of spinal stenosis Plan of Treatment: Follow up with your PCP, psychiatric provider and other outpatient providers regarding above concerns Take medications as prescribed Assessment: Risk assessment at time of discharge:? Patient was interviewed prior to discharge and found to be fully oriented and without any SI or HI. Patient has improved insight and judgment and wants to continue treatment. Patient is not in imminent risk of harm to self or others and has a safety plan that includes presenting to the closest ER or calling 911 if feeling unsafe.? Patient has been observed closely by nursing and unit staff throughout admission; patient has not engaged in any behaviors that suggest dangerousness to self or others and has demonstrated appropriate behaviors and impulse control
== END 2023-07-22 11:36 | disposition home or self-care (01) | DRG 885 ==
LOC: HO.ED 07-16 13:40 → HO.PM5 07-17 13:24
PROVIDERS: Emergency Medicine Emergency Medical Services; Admitting Provider Psychiatry & Neurology Psychiatry; Emergency Provider Emergency Medicine; PCP Internal Medicine; Visit Provider Psychiatry & Neurology Psychiatry
DX: F31.9 Bipolar disorder, unspecified (principal); Z20.822 Contact with and (suspected) exposure to COVID-19; Z87.891 Personal history of nicotine dependence; Z79.899 Other long term (current) drug therapy
CPT/HCPCS: 0241U; 36415; 80053; 80061; 80164; 80307; 81003; 82140; 83036; 85025; 93005; 99285; J0401; S9485

== ENCOUNTER → 2023-07-15 13:41 | Outpatient (BNV) | payer MEDICARE, SELFPAY | PROVIDERS: Emergency Provider Emergency Medicine; PCP Internal Medicine; Visit Provider Internal Medicine Cardiovascular Disease | DX: I45.81 Long QT syndrome (principal) | CPT/HCPCS: 93010 ==

== ENCOUNTER 2023-07-17 13:11 | Outpatient (BNV) | payer MEDICARE, SELFPAY | END 2023-07-17 14:01 | PROVIDERS: Admitting Provider Psychiatry & Neurology Psychiatry; Emergency Provider Emergency Medicine; PCP Internal Medicine; Visit Provider Internal Medicine Cardiovascular Disease | DX: R94.31 Abnormal electrocardiogram [ECG] [EKG] (principal); F31.9 Bipolar disorder, unspecified | CPT/HCPCS: 93010 ==

== ENCOUNTER → 2023-07-17 13:11 | Outpatient (BNV) | payer MEDICARE, SELFPAY | PROVIDERS: Admitting Provider Psychiatry & Neurology Psychiatry; Emergency Provider Emergency Medicine; PCP Internal Medicine; Visit Provider Psychiatry & Neurology Psychiatry | DX: F31.13 Bipolar disorder, current episode manic without psychotic features, severe (principal) | CPT/HCPCS: 90792; 99232; 99239 ==

== ENCOUNTER 2025-01-27 09:30 | Outpatient (REF) | payer MEDICARE, SELFPAY ==
--- OUTSIDE RECORDS SUMMARY | 2025-01-28 10:01 | XMS_ITS | Clinical Summary ---
Author Organization [address] Address [address] [place] [address] Phone Care Team Providers Care Checking Clerk Name Role Phone Sandra Cruz MD Primary Care Provider [phone] Allergies Active Allergy Reactions Criticality Noted Date [...] (BMI 35.0-39. 9) with comorbidity (CMS/HCC V24, [facility] V28) 09/19/2022 Osteopenia 09/17/2022 Prediabetes 09/03/2022 Psychosis, paranoid ([facility] V24, [facility] V28) 0 08/30/2022 Overview (07/18/2024): [facility] [place] 03/29 - 04/03/22. Section 12 on 03/20 - 03/26/23 after police dropped patient off at ER. [facility] 04/11 - 04/29/23. [facility] [place] 06/13/23 [facility] [place] 07/15/23. 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 Chronic bilateral low [...] GERD (gastroesophageal reflux disease) 3 Bipolar disorder ([facility] V24, [facility] V28) 07/2006 Allergic rhinitis 08/26/2005 Overview (12/09/2023): Allergiy shots Irritable bowel syndrome 08/26/2005 Resolved Problems Problem Noted Date Diagnosed Date Resolved Date Allergy 06/05/2018 07/18/2024 Overview (12/09/2023): Allergic Reaction after Colonoscopy 06/05/2018: Had diffuse swelling day after colonoscopy with MAC at [facility] on 06/03/2018. Cause not known. Encounters Date Type Department Care Team Description 01/06/2025 9:14 AM EDT - 01/06/2025 11:59 PM EDT Hospital Encounter Bone Density [address] [phone] Osteopenia, unspecified location; Asymptomatic menopausal state Discharge Disposition: Home or Self Care 01/06/2025 Results Follow-Up [address] [phone] Pamela King PA 12/10/2024 10:30 AM EDT - 12/10/2024 11:59 PM EDT Hospital Encounter XRAY [address] [phone] Chronic left shoulder pain Discharge Disposition: Home or Self Care 12/10/2024 Results Follow-Up [address] [phone] Pamela King PA 12/07/2024 1:00 PM EDT Office Visit Adult [address] [phone] Pamela King PA Chronic left shoulder pain [...] swelling day after colonoscopy with MAC at [facility] on 06/03/2018. Cause not known. 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 Family History Medical History Relation Name Comments Breast cancer Aunt 1 m aunt father's side Other: stomach cancer Aunt 2 - age 60 after surg, chemo-mat Ovarian cancer Aunt 3 of surg complications-maternal Other: peripheral vascular disease Brother 1 s/p stents in legs Coronary artery disease Brother 2 s/p MD, age 61 Other: colon disease Brother 3 [...] care for your loved ones. 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 [...] 03/14/2025 1:20 PM EST Appointment Radiology Department [address] [phone] Health Maintenance Due Date Last Done Comments [...] (World Health Organization Fracture Risk Assessment) [facility] Department of Internal Medicine recommends using [...] alternative screening schedule based on sarahy Michel., BANNER March 28, 2011 for patients with osteopenia [...] Signed Date: 01/06/2025 10:51 ET Workstation ID: [id number] Transcribed By: Self Edit Transcribed Date: 01/06/2025 [...] (World Health Organization Fracture Risk Assessment) [facility] Department of Internal Medicine recommendsusing National [...] Signed Date: 01/06/2025 10:51 ET Workstation ID: [id number] Transcribed By: Self Edit Transcribed Date: 01/06/2025 [...] Signed Date: 12/10/2024 14:35 ET Workstation ID: [id number] Transcribed By: Self Edit Transcribed Date: 12/10/2024 [...] Signed Date: 12/10/2024 14:35 ET Workstation ID: [id number] Transcribed By: Self Edit Transcribed Date: 12/10/2024 [...] is recommended in 1 year. Mammo Location: [facility], [address] [place] [address], [address], . -------- FINAL REPORT -------- Dictated By: Cony Borja Dictated Date: 01/14/2024 13:18 ET Assigned Physician: Cony Borja Reviewed and Electronically Signed By: Cony Borja Signed Date: 01/14/2024 13:23 ET Workstation ID: [id number] Transcribed By: Self Edit Transcribed Date: 01/14/2024 [...] is recommended in 1 year. Mammo Location: [facility], [address] [place] [address], [address], . -------- FINAL REPORT -------- Dictated By: Cony Boraj Dictated Date: 01/14/2024 13:18 ET Assigned Physician: Cony Borja Reviewed and Electronically Signed By: Cony Borja Signed Date: 01/14/2024 13:23 ET Workstation ID: [id number] Transcribed By: Self Edit Transcribed Date: 01/14/2024 13:19 ET Sandra Cruz MD IM BI PROCEDURES Final Result * Falls Risk Assessment (10/15/2023) Pathologist [facility] Falls Risk Assessment Abstracted us Historical Provider HEALTH MAINTENANCE Final Result * Depression Screening (10/15/2023) Pathologist [facility] Depression Screening Abstracted us Historical Provider HEALTH MAINTENANCE Final Result * Lipid panel (10/15/2023) Pathologist [facility] LDL/HDL Ratio 3 0 - 4 Triglycerides 91 0 - 150 mg/dL Cholesterol 159 0 - 200 mg/dL HDL 54 >=40 mg/dL LDL Cholesterol 87 0 - 100 mg/dL Blood Venous blood specimen / Unknown [facility] Provider LAB BLOOD ORDERABLES Miladis l Result * Colonoscopy (08/01/2021) Colonoscopy No interpretation , Abstracted Comment:Repeat in 5 years. Anatomical Region Laterality Modality Other [facility] Provider HEALTH MAINTENANCE Final Result * Cervical Cancer Screening: HPV (05/17/2019) Pathologist [facility] Cervical Cancer Screening: HPV Negative, Abstracted [facility] Provider HEALTH MAINTENANCE Final Result * Hepatitis C Screening (01/27/2012) [facility] Hepatitis C Screening Abstracted [facility] Provider HEALTH MAINTENANCE Final Result from Last 3 Months or Most Recently Relevant to Health Maintenance Insurance MEDICARE [facility] Care Teams Checking Clerk Relationship Specialty Start Date End Date Sandra Cruz MD [address] [place] [address] PCP - General Internal Medicine 06/14/20
--- OUTSIDE RECORDS SUMMARY | 2025-01-28 10:01 | XMS_ITS | Encounter Summary ---
Author Organization [facility] Address [address] [place] [address] Care Team Providers Care Message And Delivery Service Pricer Name Role Phone Sandra Cruz MD Primary Care Provider [phone] Encounter Details Date Type Department Care Team (Late st Contact Info) Description 01/06/2025 Results Follow-Up Adult Medicine [facility] [address] [place], [place] [phone] Pamela King PA [address] [place] [phone] Social History Tobacco Use Types Packs/Day Years [...] care for your loved ones. For example, childcare worker or elderly care for an older adult? [...] 03/14/2025 1:20 PM EST Appointment Radiology Department [address] [phone] documented as of this encounter Visit Diagnoses Not on filedocumented in this encounter Additional Health Concerns Assessment Noted Time PHQ-9 Depression Total Score: 0 04/09/19 25 11:51 AM EST documented as of this encounter Care Teams Message And Delivery Service Pricer Relationship Specialty Start Date End Date Sandra Cruz MD [address] [place] [address] PCP - General Internal Medicine 06/14/20 documented as of this encounter
--- OUTSIDE RECORDS SUMMARY | 2025-01-28 10:01 | XMS_ITS | Clinical Summary ---
Author Organization [facility] Address [address] [place] [address] Care Team Providers Care Press Clippings Cutter And Paster Name Role Phone Unavailable Primary Care Provider [...] on file ManuelReyna Personal/Family Self 1955 [address] [place] [address]
--- OUTSIDE RECORDS SUMMARY | 2025-01-28 10:02 | XMS_ITS | Patient Health Record ---
Author Organization [facility] Address [address] [place] [address] Care Team Providers Care Capacitor Assembler Name Role Phone Anna Marie Bhatt Primary [...] tablet Orally Once a day Active Nasal [place] Active Benadryl 50 mg cap every 6 hr prn Active Plan Of Treatment Pending Test Test Name Order Date X ray : Foot, left 3v 07/14/2020 X ray : Foot, right 3v 07/14/2020 Punch Biopsy 07/14/2020 Insurance Providers Payer Name Payer Address Payer Phone Subscriber Number Group Number Insured Name Patient Relationship to Insured Coverage Start Date Coverage End Date [employer] [place] and [employer] [facility] [address] [place] [address] [phone] [id number] Reyna Jackson Self - patient is [...]
--- OUTSIDE RECORDS SUMMARY | 2025-01-28 10:02 | XMS_ITS | Clinical Summary ---
Author Organization [facility] Address [address] [address] Phone Care Team Providers Care Tangled Yarn Worker Name Role Phone Sandra Cruz MD Primary Care Provider [phone] Allergies Active Allergy Reactions Criticality Noted Date [...] topic Medical Devices Not on file Insurance [facility] Member Subscriber Plan / Payer (Ef fective 2011-Present) Name:Reyna Jackson Relation to Subscriber:Spouse Name:ISREAL JACKSON Date of :1945 (Home) Address: [address] Payer ID:[id number] (NAIC) Type:HMO Address: [address] [place], [place] Care Teams Tangled Yarn Worker Relationship Specialty Start Date End Date Sandra Cruz MD [address] [place] [address] PCP - General Internal Medicine 01/21/22 Additional Source Comments The information contained in this document represents components of the legal health record. It is not the complete legal health record.[facility]
--- OUTSIDE RECORDS SUMMARY | 2025-01-28 10:02 | XMS_ITS | Encounter Summary ---
Author Organization [facility] Address [address] [place] [address] Care Team Providers Care Director Of Search Engine Optimization Name Role Phone Sandra Cruz MD Primary Care Provider [phone] Encounter Details Date Type Department Care Team (Late st Contact Info) Description 12/10/2024 Results Follow-Up Adult Medicine [facility] [address] [place], [place] [phone] Pamela King PA [address] [place] [phone] Social History Tobacco Use Types Packs/Day Years [...] for your loved ones. 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
--- OUTSIDE RECORDS SUMMARY | 2025-01-28 10:02 | XMS_ITS | Patient Health Record ---
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 Role Phone ANAIS AMADOR Unavailable [phone] Allergies Allergen (clinical drug ingredient) Drug/Non Drug [...] Problem Obesity due to exces s calories (517442045) Other obesity due to excess calories (E66.09) Active confirmed Problem Pure hypercholesterolemia (821371288) Pure hypercholester olemia, unspecified (E78.00) Active confirmed Problem Obstructive sleep ap tasha syndrome (91610504) BAKARI (obstructive sleep apnea) (G47.33) Active confirmed Problem Obese class II (948115362239183) BMI 37.0-37.9, adult (Z68.37) Active confirmed Problem Obese class II (005798568812127) BMI 35.0-35.9,adul t (Z68.35) Active confirmed Problem Obese class II (265562945674505) BMI 36.0-36.9,adul t (Z68.36) Active confirmed Problem Body mass index 30.0 0 to 34.99 (257011714364384) BMI 34.0-34.9,adul t (Z68.34) Active confirmed Vital Signs Heart Rate 90 /min 12/08/2024 Oximetry 91 % 12/08/2024 Blood pressure diastolic 80 mm Hg 12/08/2024 Height 63 in 12/08/2024 Blood pressure systolic 130 mm Hg 12/08/2024 Weight 194.3 lbs 12/08/2024 BMI 34.41 kg/m2 12/08/2024 Encounters Encounter Location Date Provider Diagnosis [facility] [address] [address] 04/06/2024 ANAIS DONITAT Other obesity due to excess calories E66.09 ; Pure hypercholesterolemia, unspecified E78.00 ; Prediabetes R73.03 and BMI 36.0-36.9,adult Z68.36 [facility] [address] [address] 05/18/2024 ANAIS WAYNEHOT Other obesity due to excess calories E66.09 ; BMI 37.0-37.9, adult Z68.37 ; Pure hypercholesterolemia, unspecified E78.00 and Prediabetes R73.03 [facility] [address] 06/30/2024 ANAIS BORHOT Other obesity due to excess calories E66.09 ; BMI 37.0-37.9, adult Z68.37 ; Pure hypercholesterolemia, unspecified E78.00 and Prediabetes R73.03 [facility] [address] 08/11/2024 ANAIS BORHOT Other obesity due to excess calories E66.09 ; BMI 37.0-37.9, adult Z68.37 ; Pure hypercholesterolemia, unspecified E78.00 ; Prediabetes R73.03 and Encounter for examination of blood pressure without abnormal findings Z01.30 [facility] [address] 10/13/2024 ANAIS BORHOT Other obesity due to excess calories E66.09 ; BMI 35.0-35.9,adult Z68.35 ; Pure hypercholesterolemia, unspecified E78.00 ; Prediabetes R73.03 and Encounter for examination of blood pressure without abnormal findings Z01.30 [facility] [address] 12/08/2024 ANAIS BORHOT Other obesity due to excess calories E66.09 ; BMI 34.0-34.9,adult Z68.34 ; Pure hypercholesterolemia, unspecified E78.00 ; Prediabetes R73.03 and Encounter for examination of blood pressure without abnormal findings Z01.30 [facility] [address] [address] 04/13/2024 ANAIS BORHOT [facility] [address] [address] 05/04/2024 ANAIS BORHOT [facility] [address] 11/05/2024 ANAIS BORHOT [facility] [address] 11/10/2024 ANAIS BORHOT Other obesity due to excess calories E66.09 Assessments Encounter Date Diagnosis (ICD Code) Assessment Notes Treatment Notes Treatment Clinical Notes Section Notes 04/06/2024 Other obesity due to excess calories [...] software and direct typing Please excuse inadvertent director treasurer or typing errors, or uncorrected word substitutions Although every attempt has been made by the provider to proofread this document, occasional misspellings and typographical errors may still be present Due to the previous pandemic, and the use of personal protective equipment (PPE) This may decrease voice recognition accuracy Inadvertent director treasurer errors may occur 05/18/2024 Other obesity due to excess calories [...] software and direct typing Please excuse inadvertent director treasurer or typing errors, or uncorrected word substitutions Although every attempt has been made by the provider to proofread this document, occasional misspellings and typographical errors may still be present Due to the previous pandemic, and the use of personal protective equipment (PPE) This may decrease voice recognition accuracy Inadvertent director treasurer errors may occur 05/18/2024 BMI 37.0-37.9, adult [...] software and direct typing Please excuse inadvertent director treasurer or typing errors, or uncorrected word substitutions Although every attempt has been made by the provider to proofread this document, occasional misspellings and typographical errors may still be present Due to the previous pandemic, and the use of personal protective equipment (PPE) This may decrease voice recognition accuracy Inadvertent director treasurer errors may occur 08/11/2024 Other obesity due [...] software and direct typing Please excuse inadvertent director treasurer or typing errors, or uncorrected word substitutions Although every attempt has been made by the provider to proofread this document, occasional misspellings and typographical errors may still be present Due to the previous pandemic, and the use of personal protective equipment (PPE) This may decrease voice recognition accuracy Inadvertent director treasurer errors may occur 08/11/2024 BMI 37.0-37.9, adult [...] software and direct typing Please excuse inadvertent director treasurer or typing errors, or uncorrected word substitutions Although every attempt has been made by the provider to proofread this document, occasional misspellings and typographical errors may still be present Due to the previous pandemic, and the use of personal protective equipment (PPE) This may decrease voice recognition accuracy Inadvertent director treasurer errors may occur 10/13/2024 Other obesity due [...] software and direct typing Please excuse inadvertent director treasurer or typing errors, or uncorrected word substitutions Although every attempt has been made by the provider to proofread this document, occasional misspellings and typographical errors may still be present Due to the previous pandemic, and the use of personal protective equipment (PPE) This may decrease voice recognition accuracy Inadvertent director treasurer errors may occur 10/13/2024 BMI 35.0-35.9,adult (ICD-10 [...] software and direct typing Please excuse inadvertent director treasurer or typing errors, or uncorrected word substitutions Although every attempt has been made by the provider to proofread this document, occasional misspellings and typographical errors may still be present Due to the previous pandemic, and the use of personal protective equipment (PPE) This may decrease voice recognition accuracy Inadvertent director treasurer errors may occur 11/10/2024 Other obesity due [...] software and direct typing Please excuse inadvertent director treasurer or typing errors, or uncorrected word substitutions Although every attempt has been made by the provider to proofread this document, occasional misspellings and typographical errors may still be present Due to the previous pandemic, and the use of personal protective equipment (PPE) This may decrease voice recognition accuracy Inadvertent director treasurer errors may occur 12/08/2024 BMI 34.0-34.9,adult (ICD-10 [...] software and direct typing Please excuse inadvertent director treasurer or typing errors, or uncorrected word substitutions Although every attempt has been made by the provider to proofread this document, occasional misspellings and typographical errors may still be present Due to the previous pandemic, and the use of personal protective equipment (PPE) This may decrease voice recognition accuracy Inadvertent director treasurer errors may occur 06/30/2024 Other obesity due [...] software and direct typing Please excuse inadvertent director treasurer or typing errors, or uncorrected word substitutions Although every attempt has been made by the provider to proofread this document, occasional misspellings and typographical errors may still be present Due to the previous pandemic, and the use of personal protective equipment (PPE) This may decrease voice recognition accuracy Inadvertent director treasurer errors may occur 06/30/2024 BMI 37.0-37.9, adult [...] software and direct typing Please excuse inadvertent director treasurer or typing errors, or uncorrected word substitutions Although every attempt has been made by the provider to proofread this document, occasional misspellings and typographical errors may still be present Due to the previous pandemic, and the use of personal protective equipment (PPE) This may decrease voice recognition accuracy Inadvertent director treasurer errors may occur 10/13/2024 Pure hypercholestero lemia, [...] software and direct typing Please excuse inadvertent director treasurer or typing errors, or uncorrected word substitutions Although every attempt has been made by the provider to proofread this document, occasional misspellings and typographical errors may still be present Due to the previous pandemic, and the use of personal protective equipment (PPE) This may decrease voice recognition accuracy Inadvertent director treasurer errors may occur 12/08/2024 Pure hypercholestero lemia, [...] software and direct typing Please excuse inadvertent director treasurer or typing errors, or uncorrected word substitutions Although every attempt has been made by the provider to proofread this document, occasional misspellings and typographical errors may still be present Due to the previous pandemic, and the use of personal protective equipment (PPE) This may decrease voice recognition accuracy Inadvertent director treasurer errors may occur 08/11/2024 Pure hypercholestero lemia, [...] software and direct typing Please excuse inadvertent director treasurer or typing errors, or uncorrected word substitutions Although every attempt has been made by the provider to proofread this document, occasional misspellings and typographical errors may still be present Due to the previous pandemic, and the use of personal protective equipment (PPE) This may decrease voice recognition accuracy Inadvertent director treasurer errors may occur 05/18/2024 Pure hypercholestero lemia, [...] software and direct typing Please excuse inadvertent director treasurer or typing errors, or uncorrected word substitutions Although every attempt has been made by the provider to proofread this document, occasional misspellings and typographical errors may still be present Due to the previous pandemic, and the use of personal protective equipment (PPE) This may decrease voice recognition accuracy Inadvertent director treasurer errors may occur 04/06/2024 Pure hypercholestero lemia, [...] software and direct typing Please excuse inadvertent director treasurer or typing errors, or uncorrected word substitutions Although every attempt has been made by the provider to proofread this document, occasional misspellings and typographical errors may still be present Due to the previous pandemic, and the use of personal protective equipment (PPE) This may decrease voice recognition accuracy Inadvertent director treasurer errors may occur 04/06/2024 Prediabetes (ICD-10 - [...] software and direct typing Please excuse inadvertent director treasurer or typing errors, or uncorrected word substitutions Although every attempt has been made by the provider to proofread this document, occasional misspellings and typographical errors may still be present Due to the previous pandemic, and the use of personal protective equipment (PPE) This may decrease voice recognition accuracy Inadvertent director treasurer errors may occur 05/18/2024 Prediabetes (ICD-10 - [...] software and direct typing Please excuse inadvertent director treasurer or typing errors, or uncorrected word substitutions Although every attempt has been made by the provider to proofread this document, occasional misspellings and typographical errors may still be present Due to the previous pandemic, and the use of personal protective equipment (PPE) This may decrease voice recognition accuracy Inadvertent director treasurer errors may occur 08/11/2024 Prediabetes (ICD-10 - [...] software and direct typing Please excuse inadvertent director treasurer or typing errors, or uncorrected word substitutions Although every attempt has been made by the provider to proofread this document, occasional misspellings and typographical errors may still be present Due to the previous pandemic, and the use of personal protective equipment (PPE) This may decrease voice recognition accuracy Inadvertent director treasurer errors may occur 12/08/2024 Prediabetes (ICD-10 - [...] software and direct typing Please excuse inadvertent director treasurer or typing errors, or uncorrected word substitutions Although every attempt has been made by the provider to proofread this document, occasional misspellings and typographical errors may still be present Due to the previous pandemic, and the use of personal protective equipment (PPE) This may decrease voice recognition accuracy Inadvertent director treasurer errors may occur 10/13/2024 Prediabetes (ICD-10 - [...] software and direct typing Please excuse inadvertent director treasurer or typing errors, or uncorrected word substitutions Although every attempt has been made by the provider to proofread this document, occasional misspellings and typographical errors may still be present Due to the previous pandemic, and the use of personal protective equipment (PPE) This may decrease voice recognition accuracy Inadvertent director treasurer errors may occur 06/30/2024 Pure hypercholestero lemia, [...] software and direct typing Please excuse inadvertent director treasurer or typing errors, or uncorrected word substitutions Although every attempt has been made by the provider to proofread this document, occasional misspellings and typographical errors may still be present Due to the previous pandemic, and the use of personal protective equipment (PPE) This may decrease voice recognition accuracy Inadvertent director treasurer errors may occur 06/30/2024 Prediabetes (ICD-10 - [...] software and direct typing Please excuse inadvertent director treasurer or typing errors, or uncorrected word substitutions Although every attempt has been made by the provider to proofread this document, occasional misspellings and typographical errors may still be present Due to the previous pandemic, and the use of personal protective equipment (PPE) This may decrease voice recognition accuracy Inadvertent director treasurer errors may occur 12/08/2024 Encounter for examination [...] software and direct typing Please excuse inadvertent director treasurer or typing errors, or uncorrected word substitutions Although every attempt has been made by the provider to proofread this document, occasional misspellings and typographical errors may still be present Due to the previous pandemic, and the use of personal protective equipment (PPE) This may decrease voice recognition accuracy Inadvertent director treasurer errors may occur 10/13/2024 Encounter for examination [...] software and direct typing Please excuse inadvertent director treasurer or typing errors, or uncorrected word substitutions Although every attempt has been made by the provider to proofread this document, occasional misspellings and typographical errors may still be present Due to the previous pandemic, and the use of personal protective equipment (PPE) This may decrease voice recognition accuracy Inadvertent director treasurer errors may occur 08/11/2024 Encounter for examination [...] software and direct typing Please excuse inadvertent director treasurer or typing errors, or uncorrected word substitutions Although every attempt has been made by the provider to proofread this document, occasional misspellings and typographical errors may still be present Due to the previous pandemic, and the use of personal protective equipment (PPE) This may decrease voice recognition accuracy Inadvertent director treasurer errors may occur 04/06/2024 BMI 36.0-36.9,adult (ICD-10 [...] software and direct typing Please excuse inadvertent director treasurer or typing errors, or uncorrected word substitutions Although every attempt has been made by the provider to proofread this document, occasional misspellings and typographical errors may still be present Due to the previous pandemic, and the use of personal protective equipment (PPE) This may decrease voice recognition accuracy Inadvertent director treasurer errors may occur Plan Of Treatment Next Appt Details Provider Name:ANAIS AMADOR, 01/31/2025 01:45:00 PM, [address] [facility] [address], [place], [address], Insurance Providers Payer Name Payer Address Payer Phone Subscriber Number Group Number Insured Name Patient Relationship to Insured Coverage Start Date Coverage End Date Medicare Part B [id number] [address] [place] [address] [id number] Reyna Jackson Self - patient is the insured 3 [employer] [address] [place] [address] [id number] Reyna Jackson Self - patient is the insured Medications Administered Medication Instructions Date of Administration Dosage Notes MICC B12 INJECTION 12/09/2022 MICC B12 INJECTION 12/23/2022 MICC B12 INJECTION 01/27/2023 MICC B12 INJECTION 05/15/2023 Medical (General) History Medical History History ICD Code anxiety depression vulvodynia hypercholesterolemia irritable bowel syndrome Hospitalization History Reason Date(Month/Year) psych 2022
== END 2025-01-27 09:31 | disposition home or self-care (01) ==
LOC: HO.HOSX 09:30
PROVIDERS: Visit Provider Orthopaedic Surgery
DX: M25.312 Other instability, left shoulder (principal)
CPT/HCPCS: 73030; 99202

== ENCOUNTER 2025-01-27 14:14 | Outpatient (AMB) | payer MEDICARE, SELFPAY ==
--- NOTE | 2025-01-27 14:21 | MHC.OFFVIS ---
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 At today's visit she states pain started about 4 months ago. She is having pain and difficulty with over head movement, limited ROM and this is affecting her daily activities. She was taking ibuprofen once a day but discontinue once she ran out. Denies injury, numbness or tingling in hands. States she is pre-diabetic and is on ozempic. No MRI done. She continues with her ubgel-hl-[id number] exercises. She reports weakness when lifting her left hand above shoulder height. Allergies cat dander Allergy (Unknown, Verified 01/27/25 14:27) Unknown ciprofloxacin Allergy (Unknown, Verified 01/27/25 14:27) gastritis gabapentin Allergy (Unknown, Verified 01/27/25 14:27) Anaphylaxis hornet venom (HORNETS) Allergy (Unknown, Verified 01/27/25 14:27) ANAPHYLACTIC latex Allergy (Unknown, Verified 01/27/25 14:27) Rash metronidazole Allergy (Unknown, Verified 01/27/25 14:27) GI distress pregabalin (From Lyrica) Allergy (Unknown, Verified 01/27/25 14:27) Angioedema sorbitol (SORBITOL) Allergy (Unknown, Verified 01/27/25 14:27) RASH sulfamethoxazole (From BACTRIM) Allergy (Unknown, Verified 01/27/25 14:27) RASH sulfasalazine Allergy (Unknown, Verified 01/27/25 14:27) Rash trimethoprim (From BACTRIM) Allergy (Unknown, Verified 01/27/25 14:27) RASH iodine Allergy (Verified 01/27/25 14:27) Hives medrol dose pack Allergy (Severe, Uncoded 01/27/25 14:27) face swelling DUST Allergy (Unknown, Uncoded 01/27/25 14:27) SINUS INFECTION bandaids Allergy (Uncoded 01/27/25 14:27) Unknown contrast Allergy (Uncoded 01/27/25 14:27) rash on face betamethasone dipropriate Adverse Reaction (Severe, Uncoded 01/27/25 14:27) rash Medication List - Last Reconciled 01/27/25 by Shaquille Hair MD albuterol sulfate 90 mcg/actuation (Ventolin HFA) 2 puffs inhalation RQ4H PRN 30 days aripiprazole 10 mg PO BEDTIME 21 days aripiprazole ER (Abilify Maintena) 400 mg IM QMONTH 28 days aripiprazole ER (Abilify Maintena) 400 mg IM Q28D 26 days atorvastatin 10 mg PO DAILY divalproex 500 mg PO BEDTIME 30 days divalproex 250 mg PO DAILY 30 days epinephrine 1 mg subcut Q20M PRN ezetimibe 10 mg PO DAILY ibuprofen 800 mg PO DAILY PRN loratadine 10 mg PO DAILY semaglutide (Ozempic) 1 mg subcut QWEEK trazodone 50 mg PO BEDTIME PRN 30 days PFSH Medical History (Updated 01/27/25 @ 14:41 by Shaquille Hair MD) Bipolar disorder Vulvodynia Adjustment disorder with mixed anxiety and depressed mood Other screening mammogram IBS (irritable bowel syndrome) Depression GERD (gastroesophageal reflux disease) Hypercholesterolemia Lung nodule Proctalgia fugax Pelvic floor dysfunction Anal sphincter incompetence Gallstones Chronic bilateral low back pain without sciatica Acute allergic rhinitis Surgical History Hx of colonoscopy Hx of tonsillectomy Family History Mother Diabetes Pancreatic cancer Kidney problem Father Lung cancer Brother Peripheral vascular disease Brother CAD (coronary artery disease) Brother No problems noted. Sister Diabetes Sister Depression Maternal Grandmother Diabetes Hypertension Stroke Maternal Grandfather Lung disease Tuberculosis Other Colon cancer Ovarian cancer Stomach cancer Uterine cancer Social History (Updated 01/27/25 @ 14:27 by HAMLET Chin) Household Members: Spouse Housing: House Do you presently have visiting nurse or other home services: No Alcohol intake: current Alcohol intake frequency: 0-2 drinks per day Alcohol type: beer and hard liquor Comment: s1 Patient Tobacco Use Status: Former Tobacco user Tobacco use type: Cigarette Cigarette Packs Per Day: 0.5 Cigarettes Per Day: 10.0 Years Smoked: 45 e-Cigarette/Vaping Use: Never Used Second Hand Smoke Exposure: No Advance Directives Date on File: 10/10/21 service: No Current occupational status: retired 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 Sexual orientation: Straight/Heterosexual Physical Exam Vital Signs: BMI result Body Mass Index 35.1 Extrem Other: Left shoulder examination shows decreased active range of motion but almost full passive range of motion when compared to her right shoulder, 4/5 strength with supraspinatus testing, positive impingement signs, no instability Results Reviewed Results Reviewed: X-rays of the patient's left shoulder which she brings with her on a disc from [facility] show moderate to severe acromioclavicular joint narrowing, a type 2 acromion, no acute bony abnormalities Assessment & Plan Assessment & Plan (1) Rotator cuff insufficiency of left shoulder: Code(s): M25.312 - Other instability, left shoulder Category: Medical Plan Ms. Jackson presents with left shoulder pain and weakness due to impingement syndrome and possible rotator cuff tearing. I had a lengthy discussion with the patient regarding the treatment options. I did give her a prescription for diclofenac. She wishes to hold off on an MRI for now. She will continue with her almwv-ra-hruqac exercises. I will see her back in 4-6 weeks' time for repeat clinical examination. Feel free to call me at any time should questions regarding her orthopedic management arise. Thank you very much for asking me to see this very friendly patient. I spent 21 minutes in reviewing the patient's records and imaging studies, seeing the patient and documenting in the medical record. Orders: Orders XR shoulder LT min 2V Today M25.512 - Pain in left shoulder Medications: New diclofenac sodium 75 mg PO Q12H PRN 60 tabs 2RF pain Coding Level of Care Code New Pt Level 3 (57887) Complex visit Add On G2211 Diagnoses Rotator cuff insufficiency of left shoulder M25.312
[2025-01-27 14:23] VITALS: BMI 35.1
--- OUTSIDE RECORDS SUMMARY | 2025-01-27 19:37 | XMS_ITS | Clinical Summary ---
Author Organization [address] Address [address] [place] [phone] Phone Care Team Providers Care Emr Implementation Specialist Name Role Phone Sandra Cruz MD Primary Care Provider [phone] Allergies Active Allergy Reactions Criticality Noted Date Comments Betamethasone Dipropionate 08/06/2016 Betamethasone Dipropionate Aug Other Reaction(s): Rash/Dermatitis Used on genitals and developed burning & swelling with red welts after 2 days of BID application Cat Dander 03/18/2011 Cats Ciprofloxacin GI intolerance 04/20/2018 Gastritis Gabapentin Anaphylaxis High 12/31/2017 Other Reaction(s): Numbness, tingling or swelling of the lips, tongue or mouth Hornet Venom 10/18/2021 House Dust 12/23/2005 Dust Other Reaction(s): Runny Nose/Rhinitis grass, dust , cats, dogs Iodinated Contrast Media 10/18/2021 Iv Contrast Dye Latex 04/27/2010 Other Reaction(s): Rash/Dermatitis Metronidazole 05/27/2016 GI distress Mold 03/18/2011 Other 10/18/2021 Band-Aid Anti-Itch Prednisone 10/18/2021 Pregabalin 10/18/2021 Sorbitol 10/31/2010 Other Reaction(s): Rash/Dermatitis Rash on mouth Sulfa (Sulfonamide Antibiotics) 07/21/2014 Other Reaction(s): Rash/Dermatitis Trimethoprim 10/18/2021 Medications hyoscyamine (ANASPAZ,LEVSI N) 0.125 mg tablet Take 1 Tablet by mouth every 6 hours as needed for Cramping for up to 90 days. 09/14/19 23 Active Abilify Maintena 400 mg ER syringe INJECT FOUR HUNDRED (400) MILLIGRAMS INTO THE MUSCLE EVERY 4 WEEKS 02/18/20 24 Active divalproex (DEPAKOTE) [address] tablet TAKE 1 TABLET BY MOUTH EVERY DAY IN THE MORNING AND TAKE 2 TABLETS AT BEDTIME 01/30/20 24 Active Ventolin HFA 90 mcg/actuation inhaler INHALE 2 PUFFS INTO THE LUNGS EVERY 4 HOURS NEEDED FOR COUGH, WHEEZING OR SHORTNESS OF BREATH. 18 each 04/21/19 25 Active EPINEPHrine (EpiPen 2-Hebert) 0.3 mg/0.3 mL injection Inject 0.3 mL (0.3 mg total) into the thigh if needed for anaphylaxis. 2 each 2 07/15/19 25 Active ibuprofen (ADVIL,MOTRIN) 800 mg tablet Take 1 tablet (800 mg total) by mouth every 6 (six) hours if needed for mild pain. Active Ozempic 2 mg/dose (8 mg/3 mL) injection pen 11/11/19 25 Active loratadine (CLARITIN) 10 mg tablet TAKE 1 TABLET BY MOUTH 1 TIME EACH DAY. 90 tablet 1 01/06/20 25 Active ezetimibe (ZETIA) 10 mg tablet Take 1 tablet (10 mg total) by mouth at bedtime. 90 tablet 01/12/20 25 Active atorvastatin (LIPITOR) 10 mg tablet Take 1 tablet (10 mg total) by mouth at bedtime. 90 tablet 01/25/20 25 Active ezetimibe (ZETIA) 10 mg tablet Take 1 tablet (10 mg total) by mouth at bedtime. 90 tablet 10/12/19 25 025 Discontinued loratadine (CLARITIN) 10 mg tablet Take 1 tablet (10 mg total) by mouth 1 (one) time each day. 90 tablet 10/12/19 25 025 Discontinued atorvastatin (LIPITOR) 10 mg tablet Take 1 tablet (10 mg total) by mouth at bedtime. 90 tablet 10/30/19 25 025 Discontinued Active Problems Problem Noted Date Diagnosed Date Obstructive sleep apnea syndrome 01/07/2025 Severe obesity (BMI 35.0-39. 9) with comorbidity (CMS/HCC V24, [facility] V28) 09/19/2022 Osteopenia 09/17/2022 Prediabetes 09/03/2022 Psychosis, paranoid ([facility] V24, [facility] V28) 0 08/30/2022 Overview (07/18/2024): [facility] [place] 04[place]03[place]22. Section 12 on 03/20 - 03/26/23 after police dropped patient off at ER. [facility] [place] 04/11 - 04/29/23. [facility] [place]23 [facility] [place]23. 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 Lung nodule 06/10/2014 Overview (12/09/2023): CT 12/22 - stable, repeat in 18-[address] 06/24 - stable, no further imaging required Hypercholesterolemia 04/26/2014 GERD (gastroesophageal reflux disease) 3 Bipolar disorder ([facility] V24, [facility] V28) 07/2006 Allergic rhinitis 08/26/2005 Overview (12/09/2023): Allergiy shots Irritable bowel syndrome 08/26/2005 Resolved Problems Problem Noted Date Diagnosed Date Resolved Date Allergy 06/05/2018 07/18/2024 Overview (12/09/2023): Allergic Reaction after Colonoscopy 06/05/2018: Had diffuse swelling day after colonoscopy with MAC at [facility] on 06/03/2018. Cause not known. Encounters Date Type Department Care Team Description 01/06/2025 9:14 AM EDT - 01/06/2025 11:59 PM EDT Hospital Encounter Bone Density [address] [phone] Osteopenia, unspecified location; Asymptomatic menopausal state Discharge Disposition: Home or Self Care 01/06/2025 Results Follow-Up [address] [phone] Pamela King PA 12/10/2024 10:30 AM EDT - 12/10/2024 11:59 PM EDT Hospital Encounter XRAY [address] [phone] Chronic left shoulder pain Discharge Disposition: Home or Self Care 12/10/2024 Results Follow-Up [address] [phone] Pamela King PA 12/07/2024 1:00 PM EDT Office Visit Adult [address] [phone] Pamela King PA Chronic left shoulder pain (Primary Dx); Elevated blood pressure reading from Last 3 Months Immunizations Immunization Administration Dates Next Due DTaP, Unspecified 08/01/2003 H1N1 Inj Preservative Free 02/24/2009 Hepatitis B Pediatric (Enger ix B; Recombivax HB) to less than 20 yo 09/17/2001,04/14/2001,03/13/2001 IPV Inactivated polio (Ipol) 6wks and older 07/30/2004 Influenza Quadravalent, 0.5m l (Fluad) 65yo and older 11/06/2022 Influenza Quadravalent, MDCK , 0.5ml, preservative free (Flucelvax) 6mo and older 12/07/2021,12/07/2020,12/30/2018,2017 Influenza Quadravalent, MDCK , 0.5ml, with preservative (Flucelvax) 6mo and older 12/09/2016 Influenza Quadrivalent, 0.5m l, preservative free (Fluarix; FluLaval; Fluzone) ages 6mo and older (Afluria) 3yo and older 11/12/2020,11/08/2019 Influenza Quadrivalent, with preservative (Fluzone; Afluria) 6mo and older 12/06/2021 Influenza trivalent, 0.5mL ( Fluad) 65yo and older 12/19/2024 Influenza trivalent, 0.5mL ( Fluzone High-dose) 65yo and older 03/15/2024 Influenza trivalent, with preservative (Fluzone; Afluria) 6mo and older 12/07/2021,11/12/2020,11/08/2019,2013,01/05/2013,01/05/2013,11/28/2011,0 11/28/2011,01/18/2011,01/18/2011, 009,01/07/2008,01/07/2008,01/26/2007,,01/23/2006,01/23/2006 Influenza, Unspecified 12/17/2013 MMR, measles mumps and rubel la Live (Priorix; M-M-R II) 12mo and older 01/23/2006,07/30/2004 Pneumococcal conjugate 20 va lent (Prevnar 20, PCV 20) 2mo and older 08/23/2022 Td Tetanus diptheria (Tdvax) 7yo and older 08/01/2003,06/13/1998 Td, Unspecified 08/01/2003 Tdap Tetanus diptheria acell ular pertussis (Boostrix; Adacel) 7yo and older 08/26/2022,04/28/2012 Zoster recombinant (Shingrix ) 19yo and older 12/07/2020 Surgical History Surgery Date Site/Laterality Comments TONSILLECTOMY 1976 OTHER SURGICAL HISTORY LAPAROSCOPY PROCEDURE OVIDUCT OVARY; COMMENT: ovarian cyst SINUS SURGERY 1985 OTHER SURGICAL HISTORY COLPOSCOPY CERVIX VAG ELTRD CONIZATION CERVIX; COMMENT: about age 29 COLONOSCOPY 04/27/2010 hemorrhoids; repeat in ten years FLEXIBLE SIGMOIDOSCOPY 06/22/2014 : hemorrhoids UPPER GASTROINTESTINAL ENDOSCOPY 06/18/2012 normal UPPER GASTROINTESTINAL ENDOSCOPY 06/03/2018 small 3 cm HH. COLONOSCOPY 06/03/2018 12 mm flat sigmoid colon polyp: tubular adenoma. 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 Cause not known. 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 Family History Medical History Relation Name Comments Breast cancer Aunt 1 m aunt father's side Other: stomach cancer Aunt 2 - age 60 after surg, chemo-mat Ovarian cancer Aunt 3 of surg complications-maternal Other: peripheral vascular disease Brother 1 s/p stents in legs Coronary artery disease Brother 2 s/p [place], age 61 Other: colon disease Brother 3 age 4 3 Lung cancer Father Other: lung disease Maternal Grandfather TB in his 70s Hypertension Maternal Grandmother Stroke( - 72), diabetes Diabetes Mother cancer of Pancr eas (47), kidney problem Ovarian cancer Other mat 1st cousi n once removed Other: Other Paternal Grandfather ? cause of Other: heart Paternal Grandmother 80- Diabetes Sister 1 Depression Sister 2 Colon cancer Neg Hx Uterine cancer Neg Hx Relation Name Status Comments Aunt 1 m aunt Aunt 2 Aunt 3 Brother 1 Alive Brother 2 Brother 3 Father (Age 61) Maternal Grandfather (Age 72) Maternal Grandmother Mother (Age 47) Other Paternal Grandfather Paternal Grandmother Sister 1 Alive Sister 2 Alive Social History Tobacco Use Types Packs/Day Years Used Date Smoking Tobacco: Some Days Cigarettes 0.3 Last attempted to quit: 06/27/2016 Smokeless Tobacco: Never Tobacco Cessation:Ready to Q uit: Not Asked; Counseling Given: Not Answered Alcohol Use Standard Drinks/Week Comments No 0 (1 standard drink = 0.6 oz pur e alcohol) Housing Instability Answer Date Recorde d Are you worried that in the next 2 months you may not have stable housing? No 04/09/2024 Food Access & Nutrition Answer Date Rec orded Do you have access to a vari ety of food including fruits and vegetables? Yes 04/09/2024 Access to Healthcare Answer Date Record ed Within the last 3 months, ho w many times did you visit the emergency department for your medical care? 0 04/09/2024 Health Literacy Answer Date Recorded How often do you need to hav e someone help you when you read instructions, pamphlets, or other written material from your doctor or pharmacy? Never 04/09/2024 Caregiver: How often do you need to have someone help you when you read instructions, pamphlets, or other written material from your doctor or pharmacy? Not on file 04/09/2024 Financial Risk Answer Date Recorded How hard is it for you to pa y for the very basics like food, housing, medical care, and air conditioning / heating? Not very hard 04/09/2024 Transportation Answer Date Recorded Has the lack of transportati on kept you from meetings, work, or from getting things needed for daily living? No Has the lack of transportati on kept you from medical appointments or from getting medications? No 04/09/2024 Social Isolation Answer Date Recorded How often do you feel lonely or isolated from th ose around you? Never 04/09/2024 Food Risk Answer Date Recorded Within the past 12 months we worried whether our food would run out before we got money to buy more. Never true 04/09/2024 Within the past 12 months th e food we bought just didn't last and we didn't have money to get more. Never true 04/09/2024 Dependent Care Answer Date Recorded Do you need help finding or paying for care for your loved ones. For example, summer child caregiver or elderly care for an older adult? No 04/09/2024 Education Answer Date Recorded Do you think completing more education or training, like finishing a GED, going to college, or learning a trade, would be helpful for you? No 04/09/2024 Employment and Income Answer Date Recor ded During the last four weeks, have you been actively looking for work? No 04/09/2024 Living Situation Answer Date Recorded What is your living situation? Unrecognized valu e 04/09/2024 Comments No Sex and Gender Information Value Date Recorded Sex Assigned at Not on file Legal Sex Female 10:54 AM EST Gender Identity Not on file Sexual Orientation Not on file Obstetrics History Para Term AB IAB SAB Ectopic Multiple Livin g Live Births 0 0 0 Last Filed Vital Signs Vital Sign Reading Time Taken Comments Blood Pressure 157/110 12/07/2024 1:09 PM EDT c Pulse 89 12/07/2024 1:09 PM EDT Temperature 35.6 C (96.1 F) 12/07/2024 1:09 PM EDT Respiratory Rate 16 12/07/2024 1:09 PM EDT Oxygen Saturation 96% 07/14/2024 11:00 AM EDT Inhaled Oxygen Concentration - - Weight 88 kg (194 lb) 12/07/2024 1:09 PM EDT Height 161.3 cm (5' 3.5 ) 12/07/2024 1:09 PM EDT Body Mass Index 33.83 12/07/2024 1:09 PM EDT Plan of Treatment Upcoming Encounters Date Type Department Care Team (Late st Contact Info) Description 03/14/2025 1:20 PM EST Appointment Radiology Department [address] [phone] Health Maintenance Due Date Last Done Comments IPV Vaccines (2 of 3 - Adult catch-up series) 08/27/2004 07/30/2004 RSV Immunization Adult Patients (1 - Risk 50-74 years 1-dose series) 2007 Zoster Vaccines (2 of 2) 02/01/2021 12/07/2020 Cervical Cancer Screening: HPV 05/16/2024 05/17/2019 Medicare Annual Wellness Visit 10/14/2024 10/15/2023 COVID-19 Vaccine ( season) 2024 04/20/2024, 12/02/2022, 07/02/2021, Additional history exists Social Influencers of Health Screening 04/09/2025 04/09/2024 Falls Risk Assessment 07/14/2025 07/14/2024, 024 Breast Cancer Screening 01/12/2026 01/13/20 24, 04/27/2022, 04/21/2021, Additional history exists Colorectal Cancer Screening: Colonoscopy 08/01/2026 08/01/2021 Cholesterol Screening (Lipid Panel) 10/14/2028 10/15/2023, 10/15/2023 DTaP,Tdap,and Td Vaccines (7 - Td or Tdap) 08/26/2032 08/26/2022, 04/28/2012, 08/01/2003, Additional history exists Osteoporosis Screening (Bone Density Screening) 01/06/2035 01/06/2025, 09/16/2022, 06/06/2020 Hepatitis B Vaccines Aged Out 09/17/2001, 04/14/2001, 03/13/2001 No longer eligible based on patient's age to complete this topic MMR Vaccines Aged Out 01/23/2006, 07/30/2004 No lo nger eligible based on patient's age to complete this topic Hepatitis C Screening Completed 01/27/2012 Pneumococcal Vaccine: 50+ Years Completed 08/23/2022 Depression Screening Completed 07/07/2024, 10/15/19 Influenza Vaccine Completed 12/19/2024, , 11/06/2022, Additional history exists HIB Vaccines Aged Out No longer eligi ble based on patient's age to complete this topic HPV Vaccines Aged Out No longer eligi ble based on patient's age to complete this topic Hepatitis A Vaccines Aged Out No long er eligible based on patient's age to complete this topic Meningococcal ACWY Vaccine Aged Out N o longer eligible based on patient's age to complete this topic Meningococcal B Vaccine Aged Out No l onger eligible based on patient's age to complete this topic RSV Immunization Patients Under 20 months Aged Out No longer eligible based on patient's age to complete this topic Varicella Vaccines Aged Out No longer eligible based on patient's age to complete this topic Procedures Procedure Name Priority Date/Time Associated Diagnosis Comments BD BONE DENSITY DXA AXIAL SKELETON Routine 01/06/2025 9:54 AM EDT Osteopenia, unspecified location Asymptomatic menopausal state XR SHOULDER 2+ VIEWS LEFT Routine 12/10/2024 10:49 AM EDT Chronic left shoulder pain MG MAMMO DIGITAL SCREENING W FILEMON BILAT Routine 01/13/2024 11:16 AM EST Encounter for screening mammogram for breast cancer DEPRESSION SCREENING Routine 10/15/2023 FALLS RISK ASSESSMENT Routine 10/15/2023 LIPID PANEL Routine 10/15/2023 COLONOSCOPY Routine 08/01/2021 HPV Routine 05/17/2019 HEPATITIS C SCREENING Routine 01/27/2012 from Last 3 Months or Most Recently Relevant to Health Maintenance Results * BD Bone Density DXA Axial Skeleton (01/06/2025 9:54 AM EDT) Anatomical Region Laterality Modality Wrist, Hip, L-spine Bone Densito metry 01/06/2025 10:4 8 AM EDT Impressions 01/06/2025 10:51 AM EDT Osteopenia by WHO criteria. This patient has an 8.3% risk of major osteoporotic fracture and a 0.8% risk of hip fracture over the next 10 years. (World Health Organization Fracture Risk Assessment) The [facility] Department of Internal Medicine recommends using National Osteoporosis Foundation (NOF) guidelines in treatment decisions related to osteoporosis. NOF guidelines suggest considering treatment for postmenopausal women and men aged 50 or older presenting with the following: History of hip or vertebral fracture. T-score = -2.5 (DXA) at the femoral neck, total hip, or spine, after appropriate evaluation to exclude secondary causes. Low bone mass (T-score between -1.0 and -2.5 at the femoral neck or spine) AND a 10-year probability of a hip fracture = 3% OR a 10-year probability of a major osteoporosis-related fracture = 20% based on the [place]-adapted WHO algorithm Please note that all treatment decisions require clinical judgment and consideration of individual patient factors, including patient preferences, co-morbidities, previous drug use, risk factors not captured in the FRAX model (e.g., frailty, falls, vitamin D deficiency, increased bone turnover, interval significant decline in bone density) and possible under- or over-estimation of fracture risk by FRAX. Optional alternative screening schedule based on sarahy Michel., [facility] March 28, 2011 for patients with osteopenia (based on hip BMD T-score) is as follows: * advanced osteopenia (T scores -2.00 to -2.49), BMD testing every year * moderate osteopenia (T scores -1.50 to -1.99), BMD testing every 5 years mild osteopenia or normal BMD (T scores -1.50 and higher), BMD testing every 15 years -------- FINAL REPORT -------- Dictated By: Thu Taylor Dictated Date: 01/06/2025 10:48 ET Assigned Physician: Thu Taylor Reviewed and Electronically Signed By: Thu Taylor Signed Date: 01/06/2025 10:51 ET Workstation ID: [id number] Transcribed By: Self Edit Transcribed Date: 01/06/2025 10:48 ET Narrative 01/06/2025 10:51 AM EDT BONE DENSITY SCAN (DEXA): FINDINGS: Lumbar Spine T-score is -1.1. (SD relative to 20-29 y/o adult) Z-score is 0.9. (SD relative to age matched peers) This is considered osteopenia by WHO criteria. Left Hip T-score is -1.3. Z-score is 0.4. This is considered osteopenia by WHO criteria. Comparison exam(s): 09/16/2022. 4.3% increase in lumbar spine bone mineral density and 5.9% increase in left hip bone mineral density, both statistically significant at the 95% confidence level. Lateral survey view of the thoracolumbar spine shows no significant compression deformities. Procedure Note Thu Taylor MD - 01/06/2025 BONE DENSITY SCAN (DEXA): FINDINGS: Lumbar Spine T-score is -1.1. (SD relative to 20-29 y/o adult) Z-score is 0.9. (SD relative to age matched peers) This is considered osteopenia by WHO criteria. Left Hip T-score is -1.3. Z-score is 0.4. This is considered osteopenia by WHO criteria. Comparison exam(s): 09/16/2022. 4.3% increase in lumbar spine bonemineral density and 5.9% increase in left hip bone mineral density, bothstatistically significant at the 95% confidence level. Lateral survey view of the thoracolumbar spine shows no significantcompression deformities. IMPRESSION: Osteopenia by WHO criteria. This patient has an 8.3% risk of majorosteoporotic fracture and a 0.8% risk of hip fracture over the next 10years. (World Health Organization Fracture Risk Assessment) [facility] Department of Internal Medicine recommendsusing National Osteoporosis Foundation (NOF) guidelines in treatmentdecisions related to osteoporosis. NOF guidelines suggest consideringtreatment for postmenopausal women and men aged 50 or older presentingwith the following: History of hip or vertebral fracture. T-score = -2.5 (DXA) at the femoral neck, total hip, or spine, afterappropriate evaluation to exclude secondary causes. Low bone mass (T-score between -1.0 and -2.5 at the femoral neck or spine)AND a 10-year probability of a hip fracture = 3% OR a 10-year probabilityof a major osteoporosis-related fracture = 20% based on the [place]-adapted WHOalgorithm Please note that all treatment decisions require clinical judgment andconsideration of individual patient factors, including patientpreferences, co-morbidities, previous drug use, risk factors not capturedin the FRAX model (e.g., frailty, falls, vitamin D deficiency, increasedbone turnover, interval significant decline in bone density) and possibleunder- or over-estimation of fracture risk by FRAX. Optional alternative screening schedule based on sarahy Michel., NEJMJanuary 2011 for patients with osteopenia (based on hip BMD T-score)is as follows: * advanced osteopenia (T scores -2.00 to -2.49), BMD testing every year * moderate osteopenia (T scores -1.50 to -1.99), BMD testing every 5years mild osteopenia or normal BMD (T scores -1.50 and higher), BMD testingevery 15 years -------- FINAL REPORT -------- Dictated By: Thu Taylor Dictated Date: 01/06/2025 10:48 ET Assigned Physician: Thu Taylor Reviewed and Electronically Signed By: Thu Taylor Signed Date: 01/06/2025 10:51 ET Workstation ID: [id number] Transcribed By: Self Edit Transcribed Date: 01/06/2025 10:48 ET us Pamela WALKER IMG DXA PROCEDURES Final Resu lt * XR Shoulder 2+ Views Left (12/10/2024 10:49 AM EDT) Anatomical Region Laterality Modality Upper Extremities, Shoulder Left Radi ographic Imaging 12/10/2024 2:34 PM EDT Impressions 12/10/2024 2:35 PM EDT Mild degenerative changes as described. -------- FINAL REPORT -------- Dictated By: Leatha Castrejon Dictated Date: 12/10/2024 14:34 ET Assigned Physician: Leatha Castrejon Reviewed and Electronically Signed By: Leatha Castrejon Signed Date: 12/10/2024 14:35 ET Workstation ID: [id number] Transcribed By: Self Edit Transcribed Date: 12/10/2024 14:34 ET Narrative 12/10/2024 2:35 PM EDT LEFT SHOULDER, 4 VIEWS HISTORY: Pain. PRIORS: None. FINDINGS: No fracture, malalignment, or foreign body is seen. No soft tissue abnormality is seen. There is mild spurring of the left acromioclavicular joint. There is endplate spurring of the visualized thoracic spine. Procedure Note Leatha Castrejon MD - 12/10/2024 LEFT SHOULDER, 4 VIEWS HISTORY: Pain. PRIORS: None. FINDINGS: No fracture, malalignment, or foreign body is seen. No soft tissueabnormality is seen. There is mild spurring of the left acromioclavicular joint. There is endplate spurring of the visualized thoracic spine. IMPRESSION: Mild degenerative changes as described. -------- FINAL REPORT -------- Dictated By: Leatha Castrejon Dictated Date: 12/10/2024 14:34 ET Assigned Physician: Leatha Castrejon Reviewed and Electronically Signed By: Leatha Castrejon Signed Date: 12/10/2024 14:35 ET Workstation ID: [id number] Transcribed By: Self Edit Transcribed Date: 12/10/2024 14:34 ET us Pamela WALKER IMG XR PROCEDURES Final Resul t * MG Mammo Digital Screening w Filemon bilat (01/13/2024 11:16 AM EST) Anatomical Region Laterality Modality Breast Bilateral Mammography 01/14/2024 1:18 PM EST Impressions 01/14/2024 1:23 PM EST BILATERAL BREASTS: Negative, no evidence of malignancy. Normal interval follow- up is recommended in 12 months. BREAST DENSITY: B - There are scattered areas of fibroglandular density. BI-RADS CATEGORY: 1 - NEGATIVE RECOMMENDATION: Screening bilateral mammogram is recommended in 1 year. Mammo Location: [facility], [address] [place] [address], [id number], . -------- FINAL REPORT -------- Dictated By: Cony Borja Dictated Date: 01/14/2024 13:18 ET Assigned Physician: Cony Borja Reviewed and Electronically Signed By: Cony Borja Signed Date: 01/14/2024 13:23 ET Workstation ID: [id number] Transcribed By: Self Edit Transcribed Date: 01/14/2024 13:19 ET Narrative 01/14/2024 1:23 PM EST STUDY: Bilateral screening mammography with tomosynthesis and CAD TECHNIQUE: Bilateral full-field digital screening mammography is obtained and read in conjunction with computer-aided detection. Tomosynthesis as well as 2-D C view imaging were obtained. COMPARISON: Comparison made to multiple prior, most recent April 27, 2022, and most remote March 27, 2019. BILATERAL BREASTS: No significant masses, suspicious calcifications or other abnormalities are seen. Procedure Note Cony Borja MD - 01/14/2024 STUDY: Bilateral screening mammography with tomosynthesis and CAD TECHNIQUE: Bilateral full-field digital screening mammography is obtainedand read in conjunction with computer-aided detection. Tomosynthesis aswell as 2-D C view imaging were obtained. COMPARISON: Comparison made to multiple prior, most recent April, and most remote March 27, 2019. BILATERAL BREASTS: No significant masses, suspicious calcifications orother abnormalities are seen. IMPRESSION: BILATERAL BREASTS: Negative, no evidence of malignancy. Normal intervalfollow-up is recommended in 12 months. BREAST DENSITY: B - There are scattered areas of fibroglandular density. BI-RADS CATEGORY: 1 - NEGATIVE RECOMMENDATION: Screening bilateral mammogram is recommended in 1 year. Mammo Location: [facility], [address] [place] [address], [id number], . -------- FINAL REPORT -------- Dictated By: Cony Borja Dictated Date: 01/14/2024 13:18 ET Assigned Physician: Cony Borja Reviewed and Electronically Signed By: Cony Borja Signed Date: 01/14/2024 13:23 ET Workstation ID: [id number] Transcribed By: Self Edit Transcribed Date: 01/14/2024 13:19 ET Sandra Cruz MD IM BI PROCEDURES Final Result * Falls Risk Assessment (10/15/2023) Pathologist [facility] Falls Risk Assessment Abstracted us Historical Provider HEALTH MAINTENANCE Final Result * Depression Screening (10/15/2023) Pathologist [facility] Depression Screening Abstracted us Historical Provider HEALTH MAINTENANCE Final Result * Lipid panel (10/15/2023) Pathologist [facility] LDL/HDL Ratio 3 0 - 4 Triglycerides 91 0 - 150 mg/dL Cholesterol 159 0 - 200 mg/dL HDL 54 >=40 mg/dL LDL Cholesterol 87 0 - 100 mg/dL Blood Venous blood specimen / Unknown [facility] Provider LAB BLOOD ORDERABLES Miladis l Result * Colonoscopy (08/01/2021) Colonoscopy No interpretation , Abstracted Comment:Repeat in 5 years. Anatomical Region Laterality Modality Other [facility] Provider HEALTH MAINTENANCE Final Result * Cervical Cancer Screening: HPV (05/17/2019) Pathologist [facility] Cervical Cancer Screening: HPV Negative, Abstracted [facility] Provider HEALTH MAINTENANCE Final Result * Hepatitis C Screening (01/27/2012) [facility] Hepatitis C Screening Abstracted [facility] Provider HEALTH MAINTENANCE Final Result from Last 3 Months or Most Recently Relevant to Health Maintenance Insurance MEDICARE [facility] Care Teams Emr Implementation Specialist Relationship Specialty Start Date End Date Sandra Cruz MD [address] [place] [id number] PCP - General Internal Medicine 06/14/20
--- OUTSIDE RECORDS SUMMARY | 2025-01-27 19:37 | XMS_ITS | Continuity of Care Document ---
Author Organization [place] - [facility], [facility] Address [address] [place] [address] Assessment No assessment recorded. Plan of Treatment Reminders Order Date Submit Date Provider Last Modified By Organization Details Last Modified Time Details Appointments None recorded. Lab urinalysis , dipstick 2024 025 rberke In-Office Order, Internal Use Only DO Not Attach Compendium DO Not Attach Compendium, Do Not Delete/merge, [id number] 10:22:29 hemoglobin , gastrointe stinal, stool 2024 025 rberke In-Office Order, Internal Use Only DO Not Attach Compendium DO Not Attach Compendium, Do Not Delete/merge, [id number] 10:22:29 pap, IG + reflex HPV 2024 025 [facility], [address] [place], [address] 09:26:08 Referral None recorded. Procedures None recorded. Surgeries None recorded. Imaging MAMMO, screening, digital, bilateral - bilateral screening u/s for dense breasts if needed. [address] [facility], [address] [place] [address], [id number], 15:25:40 Medication Orders None recorded. Patient TargetsNo targets recorded. Patient Instructions Encounter Date Encounter Id Patient Instructions Last Modified By Organization Details Last Modified Time 12/13/2024 [id number] self breast exam education rberke Not available 12/13/2024 10:22:29 tips to help you stay healthy rberke Not available 12/13/2024 10:22:29 Reason for Referral None Reported. Results Created Date Observation Date Name Description Value Unit Range Abnormal Flag Note LastModifiedBy Organization Detail LastModifiedTime 12/14/1912/13/2024 hemog lobin , gastr ointe sierra l, stool Occult Blood negati ve Not Available In-Office Order Internal Use Only DO Not Attach Compendium DO Not Attach Compendium, Do Not Delete/merge, [id number] 12/13/2024 10:00:03 12/14/1912/13/2024 urina lysis , dipst ick Interpretati on negati ve Not Available In-Office Order Internal Use Only DO Not Attach Compendium DO Not Attach Compendium, Do Not Delete/merge, [id number] 12/13/2024 10:00:07 12/14/1912/13/2024 urina lysis , dipst ick Leukocytes Negati ve Not Available In-Office Order Internal Use Only DO Not Attach Compendium DO Not Attach Compendium, Do Not Delete/merge, [id number] 12/13/2024 10:00:07 12/14/1912/13/2024 urina lysis , dipst ick Nitrite negati ve Not Available In-Office Order Internal Use Only DO Not Attach Compendium DO Not Attach Compendium, Do Not Delete/merge, [id number] 12/13/2024 10:00:07 12/14/1912/13/2024 urina lysis , dipst ick Urobilinogen Normal : 0.2 mg/dl Not Available In-Office Order Internal Use Only DO Not Attach Compendium DO Not Attach Compendium, Do Not Delete/merge, [id number] 12/13/2024 10:00:07 12/14/1912/13/2024 urina lysis , dipst ick Protein Negati ve Not Available In-Office Order Internal Use Only DO Not Attach Compendium DO Not Attach Compendium, Do Not Delete/merge, [id number] 12/13/2024 10:00:07 12/14/19 25 12/13/2024 urina lysis , dipst ick pH 5.0 Not Available In-Office Order Internal Use Only DO Not Attach Compendium DO Not Attach Compendium, Do Not Delete/merge, [id number] 12/13/2024 10:00:07 12/14/1912/13/2024 urina lysis , dipst ick Blood Negati ve Not Available In-Office Order Internal Use Only DO Not Attach Compendium DO Not Attach Compendium, Do Not Delete/merge, [id number] 12/13/2024 10:00:07 12/14/1912/13/2024 urina lysis , dipst ick Specific [place] 1.000 Not Available In-Off ice Order Internal Use Only DO Not Attach Compendium DO Not Attach Compendium, Do Not Delete/merge, [id number] 12/13/2024 10:00:07 12/14/1912/13/2024 urina lysis , dipst ick Ketone Negati ve Not Available In-Office Order Internal Use Only DO Not Attach Compendium DO Not Attach Compendium, Do Not Delete/merge, [id number] 12/13/2024 10:00:07 12/14/1912/13/2024 urina lysis , dipst ick Bilirubin Negati ve Not Available In-Office Order Internal Use Only DO Not Attach Compendium DO Not Attach Compendium, Do Not Delete/merge, [id number] 12/13/2024 10:00:07 12/14/1912/13/2024 urina lysis , dipst ick Glucose Negati ve Not Available In-Office Order Internal Use Only DO Not Attach Compendium DO Not Attach Compendium, Do Not Delete/merge, [id number] 12/13/2024 10:00:07 12/14/1912/13/2024 urina lysis , dipst ick Appearance Clear Not Available In-Offi ce Order Internal Use Only DO Not Attach Compendium DO Not Attach Compendium, Do Not Delete/merge, [id number] 12/13/2024 10:00:07 12/14/1912/13/2024 urina lysis , dipst ick Color Yellow Not Available In-Office Order Internal Use Only DO Not Attach Compendium DO Not Attach Compendium, Do Not Delete/merge, [id number] 12/13/2024 10:00:07 12/16/1901 0112/15/2024 THINP REP PAP TEST (IMAG ER) WITH HPV REFLE X report Report Final Gynec ologi rigoberto Cytol ogy Repor t ----- ----- ----- ----- ----- ----- ----- ----- ----- ----- ----- ----- ThinP rep Pap Test with HPV Refle x SPECI MEN ADEQU ACY: SATIS FACTO RY FOR EVALU ATION . INTER PRETA TION: NEGAT HEVER FOR INTRA EPITH ELIAL KIMANI Matt OR SHAD CHOW . Elect oliverio Arellano d: Evy Condon, [place] (ASCP ) ----- ----- ----- ----- ----- ----- ----- ----- ----- ----- ----- ----- CLINI RIGOBERTO INFOR MATIO N: LMP: NG Clini rigoberto Histo ry: NG Biops y Date: NG Speci men [facility] e: Cervi x, Endoc ervix Previ ous Pap Date: NG CPT Codes : 81821 ICD Codes : Z12.4 Not Available [facility] [address] [place] [address], [id number] 12/19/2024 09:26:08 Result Notes None recorded. Problems Name Problem SNOMED Code Status Onset Date Resolution Date Notes Provider Name and Address Organization Details Recorded Time Allergic rhinitis 30517205 Active 2017 Marissa schneider, [facility] 8 14:27:53 Depressive disorder 81654138 Active 2017 Marissa schneider, [facility] 8 14:28:01 Gastroesop hageal reflux disease 067380802 Active 2017 Marissa schneider, [facility] 8 14:28:08 Gallstone 392828447 Active 2017 Marissa schneider [facility] 8 14:28:20 Hyperchole sterolemia 67928959 Active 2017 Marissashira Roman null, [facility] 8 14:28:28 Irritable bowel syndrome 48451328 Active 2017 Marissashira Roman null, [facility] 8 14:28:34 Solitary nodule of lung 297487029 Active 2017 Marissashira Roman null, [facility] 8 14:28:48 Atrophic vaginitis 67366502 Active 2017 Marissalc Roman null, [facility] 8 14:30:28 Chronic vulvitis 1496626 Active 2017 Marissashira Roman null, [facility] 8 14:30:39 Vulvodynia 167703882 Active 2017 Marissashira Roman null, [facility] 8 14:30:48 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 KAIN MONAHAN MD [address], [phone], [facility] 17:12:49 Prediabete s 285390543 Active 2024 Kelli Zuniga null, [facility] 5 09:53:16 Problem Notes None recorded. Procedures Surgical History Date Name Laterality Status Provider Name and Address Organization Details Recorded Time 12/14/19 25 Medicare Exam completed KAIN MONAHAN MD [address], [phone], [facility] 12/13/2024 10:15:22 12/14/19 25 Screening PAP Medicare completed KAIN MONAHAN MD 175 [facility], [address] [place] [address], [phone], [facility] 12/13/2024 10:15:28 07/09/19 22 Date of Last [facility] 09:33:15 04/25/19 22 [facility]/31/2021 09:32:36 05/09/19 21 Colposcopy Procedure Note completed KAIN MONAHAN MD 175 [facility], [address] [place] [address], [phone], [facility] 05/08/2020 12:20:34 02/15/20 20 Generic Procedure completed VLADIMIR JOYCE CNM 175 [facility], [address] [place] [address], [phone], [facility] 02/15/2020 11:43:39 02/14/20 20 Colposcopy Procedure Note completed KAIN MONAHAN MD 175 [facility], [address] [place] [address], [phone], [facility] 02/19/2020 15:45:43 02/08/20 20 Generic Procedure completed ESTEPHANIA CORDERO CNM 175 [facility], [address] [place] [address], [phone], [facility] 02/08/2020 12:46:08 11/11/19 20 Date of Last Pap Smear completed Sara Orellana [facility] 12/04/2020 10:37:30 06/23/19 15 Sigmoidoscopy and biopsy completed [facility] 09/30/2017 14:36:05 04/27/19 11 Colonoscopy completed [facility] 09/30/2017 14:36:23 03/10/18 85 Unlisted px accessory sinus completed Marissa [facility] 09/30/2017 14:34:54 [facility] 14:34:02 [facility] 14:34:31 Colposcopy completed [facility] 09/30/2017 14:35:12 [facility] 14:35:30 Imaging Results None recorded. Procedure Notes None recorded. Medical Equipment None Reported. Allergies Allergen ID Allergen Name Allergen Category Reaction Reaction Severity Criticality Documentation Date Start Date Code Code System Note Provider Name and Address Organization Details Recorded Time [id number] honey bee venom medicatio n Not available Not available Not available 09/30/2017 73517 7 RxNorm Marissa Abel schneider, [facility] 8 14:25:31 [id number] Substance with sulfonami de structure and antibacte rial mechanism of action (substanc e) medicatio n Not available Not available Not available 09/30/2017 56080 8003 SNOMED Marissa Abel schneider, [facility] 8 14:25:41 5127116 metronida zole medicatio n Not available Not available Not available 09/30/2017 6922 RxNorm Marissa Abel schneider, [facility] 8 14:26:02 9540475 betametha sone medicatio n Not available Not available Not available 09/30/2017 1514 RxNorm Marissa Abel null, [facility] 8 14:26:13 1747935 latex environme nt,medica tion Not available Not available Not available 09/30/2017 15143 91 RxNorm Marissa Abel schneider, [facility] 8 14:26:20 5177180 sorbitol food,medi cation Not available Not available Not available 09/30/2017 9945 RxNorm Marissa Abel null, [facility] 8 14:26:29 0317169 gabapenti n medicatio n Not available Not available Not available 03/16/2018 33427 RxNorm DO NOT USE DO NOT USE null, [facility] 9 14:44:21 3881919 Cipro medicatio n Not available Not available Not available 05/17/2019 95457 3 RxNorm Anna Marie Blanc null, [facility] 0 11:31:45 4481598 Zantac medicatio n Not available Not available Not available 05/17/2019 98684 3 RxNorm prn Anna Marie Blanc [facility], [facility] 0 11:33:20 Medications Name Sig Start Date Stop Date Status Note LastModified by Organization Details LastModified Time Prescripti on - New 09/21 completed lyrica Not Available Not Available Not Available compounded medication apply small amount to affected area 2-3x daily as directed 12/04 completed 30 gm supply ( 1 month) R x 2. Not Available Not Available Not Available methocarba mol 500 mg tablet TAKE 1 TABLET BY MOUTH TWICE A DAY NEEDED FOR FOR MUSCLE SPASM 12/13 completed Not Available Not Available Not Available betamethas one valerate 0.1 % topical ointment apply a pea sized amount to vulva as shown twice a day 12/31 completed Not Available Not Available Not Available Estring 2 mg (7.5 mcg/24 hour) vaginal ring insert 1 vaginal ring every 3 months by vaginal route 12/12 completed Not Available Not Available Not Available ketoconazo le 2 % shampoo APPLY TO SCALP, LET SIT FOR 10 MIN. THEN RINSE. FOLLOW W/GENTLE SHAMPOO & CONDITIO NER 1-2 X A WEEK active Not Available Not Available No t Available tizanidine 2 mg tablet START TAKING 1 TABLET AT BEDTIME. IF WELL TOLERATE D, MAY INCREASE UP TO 2-3 TIMES PER DAY IF NEEDED. 12/13 completed Not Available Not Available Not Available clindamyci n HCl 300 mg capsule 09/21 completed Not Available Not Available Not Available divalproex 250 mg tablet,del ayed release TAKE 1 TABLET BY MOUTH EVERY DAY IN THE MORNING AND TAKE 2 TABLETS AT BEDTIME active Not Available Not Available No t Available trazodone 50 mg tablet TAKE 1 TABLET BY MOUTH EVERYDAY AT BEDTIME 12/13 completed Not Available Not Available Not Available atorvastat in 10 mg tablet TAKE 1 TABLET BY MOUTH EVERYDAY AT BEDTIME active Not Available Not Available No t Available ibuprofen 800 mg tablet TAKE 1 TABLET BY MOUTH EVERY DAY NEEDED FOR PAIN (SCALE SCORE 7-10) 12/13 completed Not Available Not Available Not Available fluconazol e 150 mg tablet 03/16 completed Not Available Not Available Not Available valacyclov ir 1 gram tablet 09/21 completed Not Available Not Available Not Available hydrocodon e 5 mg-acetami nophen 325 mg tablet Take 1 tablet every 6 hours by oral route. 07/31 completed Not Available Not Available Not Available metronidaz ole 0.75 % (37.5 mg/5 gram) vaginal gel 03/16 completed Not Available Not Available Not Available lidocaine HCl 2 % mucosal jelly 03/16 completed Not Available Not Available Not Available acetaminop hen 500 mg tablet TAKE 2 TABLETS BY MOUTH EVERY 8 HOURS NEEDED FOR LEFT SHOULDER PAIN FOR UP TO 10 DAYS active Not Available Not Available No t Available hydrocorti sone acetate 25 mg rectal suppositor y 11/02 completed Not Available Not Available Not Available terconazol e 80 mg vaginal suppositor y 03/16 completed Not Available Not Available Not Available alprazolam 0.25 mg tablet one tablet as needed for panic attacks/ anxiety. 09/21 completed prn Not Available Not Available Not Available lorazepam 0.5 mg tablet active Not Available Not Available Not Available desonide 0.05 % topical ointment APPLY SPARINGL Y AND RUB GENTLY INTO THE AFFECTED AREA(S) BY TOPICAL ROUTE once daily three times per week. 07/31 completed Not Available Not Available Not Available trazodone 100 mg tablet TAKE 1 TABLET BY MOUTH EVERY DAY AT BEDTIME FOR 30 DAYS 12/13 completed Not Available Not Available Not Available lorazepam 2 mg tablet TAKE 1 TABLET BY MOUTH AT BEDTIME 12/13 completed Not Available Not Available Not Available cephalexin 500 mg capsule TAKE 1 CAPSULE BY MOUTH 4 TIMES A DAY FOR 7 DAYS. TAKE W/ FOOD, YOGURT, PROBIOTI CS. FINISH ALL 12/31 completed Not Available Not Available Not Available erythromyc in 5 mg/gram (0.5 %) eye ointment 03/16 completed Not Available Not Available Not Available hyoscyamin e sulfate 0.125 mg tablet TAKE 1 TABLET BY MOUTH EVERY 6 HOURS NEEDED FOR CRAMPING FOR UP TO 90 DAYS. active Not Available Not Available No t Available nortriptyl ine 10 mg capsule 11/02 completed didnt start taking it yet Not Available Not Available Not Available sertraline 25 mg tablet Take 1 tablet every day by oral route. 09/21 completed Not Available Not Available Not Available omeprazole 20 mg capsule,de layed release Take 2 capsules every day by oral route. 09/21 completed Not Available Not Available Not Available mirtazapin e 45 mg tablet TAKE 1 TABLET BY MOUTH EVERY DAY AT BEDTIME FOR 30 DAYS 12/13 completed Not Available Not Available Not Available clindamyci n 2 % vaginal cream Insert 1 applicat orful every day by vaginal route for 5 days. 05/16 completed Not Available Not Available Not Available bisacodyl 5 mg tablet,del ayed release 12/31 completed Not Available Not Available Not Available gabapentin 100 mg capsule 03/16 completed Not Available Not Available Not Available clobetasol 0.05 % topical ointment APPLY A THIN LAYER SPARINGL Y TO THE AFFECTED AREA(S) BY TOPICAL ROUTE 3 TIMES PER WEEK 12/31 completed Not Available Not Available Not Available lorazepam 1 mg tablet Take 1 tablet 3 times a day by oral route. 07/31 completed Not Available Not Available Not Available epinephrin e 0.3 mg/0.3 mL injection, auto-injec tor INJECT 0.3 ML (0.3 MG TOTAL) INTO THE THIGH IF NEEDED FOR ANAPHYLA XIS. active Not Available Not Available No t Available ibuprofen 600 mg tablet 12/31 completed Not Available Not Available Not Available zolpidem 10 mg tablet TAKE 1 TABLET BY MOUTH EVERY DAY AT BEDTIME NEEDED FOR 30 DAYS 12/13 completed Not Available Not Available Not Available loratadine 10 mg tablet TAKE 1 TABLET BY MOUTH 1 TIME EACH DAY. active Not Available Not Available No t Available desipramin e 10 mg tablet 03/16 completed Not Available Not Available Not Available Ventolin HFA 90 mcg/actuat ion aerosol inhaler INHALE 2 PUFFS INTO THE LUNGS EVERY 4 HOURS NEEDED FOR COUGH, WHEEZING OR SHORTNES S OF BREATH. active Not Available Not Available No t Available ezetimibe 10 mg tablet TAKE 1 TABLET BY MOUTH EVERYDAY AT BEDTIME active Not Available Not Available No t Available aripiprazo le 15 mg tablet TAKE 1 TABLET BY MOUTH EVERYDAY AT BEDTIME active Not Available Not Available No t Available rosuvastat in 10 mg tablet TAKE 1 TABLET BY MOUTH EVERY DAY active Not Available Not Available No t Available tinidazole 500 mg tablet 03/16 completed Not Available Not Available Not Available duloxetine 20 mg capsule,de layed release TAKE 1 CAPSULE BY MOUTH TWICE A DAY 05/07 completed Not Available Not Available Not Available Lyrica 25 mg capsule take one tablet 4 times a day 09/21 completed Not Available Not Available Not Available Claritin prn active Not Available Not Avai lable Not Available Benadryl prn active Not Available Not Avai lable Not Available peg 3350-elect rolytes 236 gram-22.74 gram-6.74 gram-5.86 gram solution 12/31 completed Not Available Not Available Not Available diclofenac 1 % topical gel APPLY 4 G TOPICALL Y 4 TIMES A DAY FOR PAIN 12/13 completed Not Available Not Available Not Available GaviLyte-N 420 gram oral solution 09/21 completed Not Available Not Available Not Available lidocaine 5 % topical ointment APPLY TO AFFECTED AREA(S) BY TOPICAL ROUTE 1-4 TIMES DAILY NEEDED 12/31 completed Not Available Not Available Not Available Lotemax 0.5 % eye gel drops 03/16 completed Not Available Not Available Not Available Abilifcurly Maintena 400 mg suspension ,extended rel. intramuscu lar syringe INJECT ONE SYRINGE INTO THE MUSCLE ONCE A MONTH active Not Available Not Available No t Available BD Darlyn 2nd Gen Pen Needle 32 gauge x 32 ONCE A WEEK 90 DAYS active Not Available Not Available No t Available Fluzone Quad (PF) 60 mcg (15 mcg x 4)/0.5 mL IM syringe 07/31 completed Not Available Not Available Not Available Ozempic 1 mg/dose (4 mg/3 mL) subcutaneo us pen injector INJECT 1 MG SUBCUTAN EOUSLY WEEKLY 12/13 completed Not Available Not Available Not Available Ozempic 2 mg/dose (8 mg/3 mL) subcutaneo us pen injector INJECT 2MG SUBCUTAN EOUS WEEKLY active Not Available Not Available No t Available Ozempic 0.25 mg or 0.5 mg (2 mg/3 mL) subcutaneo us pen injector INJECT 0.5 MG SUBCUTAN EOUSLY WEEKLY 12/13 completed Not Available Not Available Not Available Vitals Date Recorded Body height Body mass index (BMI) Body weight Systolic And Diastolic Provider Name and Address Organization Details Last Updated DateTime 12/13/2024 157.48 cm 35.3 kg/m2 13926.33 g 120/80 mm[Hg] Kelli Zuniga [facility] 12/13/2024 09:57:48 Social History Question Answer Notes LastModified by Organizat ion Details LastModified Time Tobacco Smoking Status Former Smoker Sara Orellana [facility], [facility] 07/23/2021 12:40:05 Is Blood Transfusion Acceptable In An Emergency? Yes Information not available 12/31/2021 Concerns About Meeting Basic Needs (food, Housing, Heat, Etc)? No Information not available 12/31/2021 In The 14 Days Before Symptom Onset, Have You Had Close Contact With A Laboratory-confirm ed COVID-19 While That Case Was Ill? No Information n ot available 12/31/2021 In The 14 Days Before Symptom Onset, Have You Had Close Contact With A Person Who Is Under Investigation For COVID-19 While That Person Was Ill? No Information not available 12/31/2021 Have You Been To An Area Known To Be High Risk For COVID-19? No Information not available 12/31/2021 Do You Reside In Or Have You Traveled To An Area Where Ebola Virus Transmission Is Active? No Information not available 12/31/2021 Have There Been Any Changes To Your Family Or Social Situation? No Information no t available 12/31/2021 Does Your Partner Physically Hurt You Or Threaten To Hurt You? No [email or web address] Information not available 09/30/2017 Has Your Partner Forced You To Have Sex Or Perform Sex Acts When You Did Not Want To? No Information not available 09/30/2017 Does Your Partner Insult, Scream At Or Talk Down To You? No [email or web address] Information not available 09/30/2017 Does Your Partner Control You Or Any Part Of Your Life? No [email or web address] Information n ot available 09/30/2017 Are You Afraid Of Your Partner? No [email or web address] Information not available 09/30/2017 Do You Feel Safe At Home? Yes [email or web address] Information not available 09/30/2017 What Was The Date Of Your Most Recent Tobacco Screening? 12/13/2024 [email or web address] Information not available 12/13/2024 Are You Sexually Active? No Information not available 07/23/2021 How Much Tobacco Do You Smoke? 0.5 PPD Information not available 07/23/2021 How Many Years Have You Smoked Tobacco? 42 Information not available 12/31/2021 Have You Recently Traveled Abroad? No [email or web address] Information not available 05/17/2019 Do You Have Symptoms Associated With Zika Virus (fever, Rash, Joint Pain, Or Conjunctivitis)? No Information not available 12/31/2021 Have You Recently (within The Last 12 Weeks, Or During A Current ) Traveled To Or Lived In A Zika-affected Area? No Information not available 12/31/2021 Sex: Unknown Functional Status Question Answer Note LastModified by Organizat ion Details LastModified Time What is your level of alcohol consumption? Moderate Information not available 07/23/2021 What is your exercise level? Occasional Information not available 07/23/2021 Mental Status Question Answer Note LastModified by Organizat ion Details LastModified Time Do you feel stressed (tense, restless, nervous, or anxious, or unable to sleep at night)? [id number] Information not available 07/23/2021 Do you have difficulty concentrating, remembering or making decisions? No Information no t available 12/31/2021 Family History Relationship Description Onset Age of this Age Resolved Age Notes LastModified by Organization Details LastModified Time Mother Diabetes mellitus [email or web address] Not available 2017 14:38:03 Mother Malignant neoplasm of pancreas [email or web address] Not available 2017 14:38:34 Maternal Grandmother Diabetes mellitus [email or web address] Not available 2017 14:38:03 Maternal Grandmother Hypertensive disorder [email or web address] Not available 2017 14:39:49 Maternal Grandmother Cerebrovascu lar accident 72 [email or web address] Not available 14:39:59 Father Malignant neoplasm of lung 62 smoker , absest os exposu re [email or web address] Not available 09/30/2017 14:39:02 Father Bronchitis [email or web address] Not available 12/13/2024 09:14:31 Maternal Grandfather Disorder of lung TB - in his 70's [email or web address] Not available 12/13/2024 09:14:32 Paternal Grandmother Heart disease 80 Not available 2017 14:40:59 Paternal Aunt Malignant neoplasm of breast [email or web address] Not available 2017 14:41:27 Maternal Aunt Malignant neoplasm of stomach 60 [email or web address] Not available 2024 09:14:32 Maternal Aunt Malignant neoplasm of ovary Not available 2017 14:42:51 Unspecified Relation Malignant neoplasm of ovary matern al cousin Not available 09/30/2017 14:42:51 Sister Asthma shammell Not available 0 05/17/2019 11:34:24 Sister Chronic obstructive pulmonary disease [email or web address] Not available 2024 09:14:32 Medical History Condition Response Other N *No Diseases or Conditions N Breast Cancer N Blood clots N Colon cancer N Benign breast disease N Depression Y Lung Disease N Defects or Inherited Disease N Anesthesia Complications N Headaches/Migraines N Have you ever been on isolation N Anxiety Disorder N Arthritis N HSV N Infertility N Abnormal pap Y Interstitial Cystitis N Acid Reflux (GERD) N Cancer N Stroke N Endometriosis N Spina Bifida N HIV N Heart Problems N Sexual Dysfunction N Autoimmune disorder N Thyroid Problems N Kidney or Bladder Problems N GI Problems Y Eating Disorder N Anemia N Multiple Sclerosis N Psychiatric Illness N Ovarian Cancer N Diabetes N Blood Transfusions N Bladder disease N History of MRSA N Abnormal Uterine Bleeding N Hyperlipidemia Y BrCa positive N Diverticulitis N Abuse/Domestic Violence N Asthma N Hepatitis N Hypertension N Osteoporosis N Thrombophilias N Gynecological History Statement/Question Response Benign Breast Disease N Date of Last Mammogram 04/25/2021 Date of LMP 05/13/2003 IPV Screen Done 12/13/2024 Post Menopausal Bleeding N STIs/STDs N PID N Cervical Cancer N History of Endometrial Biopsy? N BrCa gene tested? Y If Post Menopausal, Age at Menopause 49 Ovarian Cancer N Date of Last Colonoscopy 07/08/2021 Breast Cancer N Date of last DEXA 04/25/2021 Bladder Problems N Abnormal Uterine Bleeding N Last HPV Result Negative BrCa Positive N Infertility N HPV Vaccine N Endometriosis N Age at Menarche 17 Current Control Method None Fibroids N Uterine Cancer N Current Control Method Menopause Sexually Active? N Sexual Problems? N Date of Last Pap Smear 11/11/2019 Pap Required? N Hormone Replacement Therapy N Obstetrics History GPAL:G 0 P 0 0 0 0 Immunizations Vaccine Type Date Status Note Provider Nam e and Address Organization Details Recorded Time COVID-19, mRNA, LNP-S, PF, 30 mcg/0.3 mL dose 1 completed Sara schneider, [place] - [facility] 07/31/2020 11:34:02 COVID-19, mRNA, LNP-S, PF, 30 mcg/0.3 mL dose 1 completed Sara schneider, [place] - [facility] 07/31/2020 11:34:16 Influenza, split virus, quadrivalent, preservative 2 completed Kelli Zuniga null, [place] - [facility] 12/31/2021 09:32:05 Past Encounters Encounter ID Performer Location Encounter Start Date Encounter Closed Date Diagnosis/Indication Diagnosis SNOMED-CT Code Diagnosis ICD10 Code Diagnosis IMO Codes Diagnosis Note [id number] KAIN MONAHAN MD [facility] [address] [place] [address] 12/13/2024 09:14:02 12/13/2024 10:23:03 Gynecologic examination 91110981 Z01.419 [id number] Last pap was 05/17/19. Due for pap smear next year in 2022 Screening for malignant neoplasm of cervix 710959111 Z12.4 Menopause present 949698 006 N95.1 Review when to perform bone density evaluation . Screening mammography 24 132520 Z12.31 Advised to obtain a yearly screening mammogram and to perform monthly self breast exam. Screening for malignant neoplasm of rectum 065511608 Z12.12 FIT test performed and was negative. Depression screening 171 212312 Z13.31 Depression screening done. Health Concerns Section Related Observation LastModified by Organization Detai ls LastModified Time None Recorded Concern Status LastModified by Organization Details LastModified Time None Recorded Payers Encounter Date Sequence Insurance Name Policy Number Policy Rico Covered Member ID Rico Member ID Guarantor Name 12/13/2024 1 MEDICARE B-CT: ARSALAN Jackson [id number] Reyna Jackson 12/13/2024 2 [place] [employer] [id number] Reyna Jackson [id number] Reyna Jackson Notes Date Note Type Note Provider Name and Address Organization Details Recorded Time 5 text/html [facility] Annual GYNReported by PatientGenitourinary symptomsFor menstrual cycle, patient reportspostmenopausal. For urinary symptoms, patient reportsno hematuriaandno incontinence. For vulva, patient reportsno genital lesion. For vagina, patient reportsnormal vaginal discharge.Breast symptomsFor breast, patient reportsno breast pain,no breast lump, andno nipple discharge.Endocrine symptomsFor sexual activity, patient reportsno sexual complaints,no pain during intercourse, andnormal libido. For menopausal symptoms, patient reportsno menopausal symptomsandnormal vaginal lubrication.Psychological symptomsFor psychological symptoms, patient reportsno depression,no anxiety, andno pmdd.Preventative measuresFor preventive measures, patient reportsencourage self breast examination,encourage regular exercise,encourage no tobacco use,followed with pap smear and high risk hpv typing every 3 years,encourage regular mammograms starting age 40,mammogram performed within the past year,up to date on colonoscopy screening, anddexa needs to schedule. pt here for AOV. 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 Has h/o chronic vulvitis for which she occ uses clobetasol but not on a regular basis. MMG done 04/25/2021 ,per pt had done a week ago Colonoscopy done 07/08/2021 , cleared until 2027 Pap 11/11/2019 n/nDexa 05-27-2020 osteopenia has appointment 01/06/25 KAIN MONAHAN MD [address] [place] [address], [address], [place], [address], [place] [facility] 12/13/2024 10:22:36 OBGyn Episode No OBEpisode recorded.
--- OUTSIDE RECORDS SUMMARY | 2025-01-27 19:37 | XMS_ITS | Data Portability ---
Author Organization [place] [facility], [facility] Address [id number] [place] [address] Assessment No assessment recorded. Plan of Treatment Reminders Order Date Submit Date Provider Last Modified By Organization Details Last Modified Time Details Appointments None recorded. Lab urinalysis , dipstick 2024 025 rberke In-Office Order, Internal Use Only DO Not Attach Compendium DO Not Attach Compendium, Do Not Delete/merge, 5 10:22:29 hemoglobin , gastrointe stinal, stool 2024 025 rberke In-Office Order, Internal Use Only DO Not Attach Compendium DO Not Attach Compendium, Do Not Delete/merge, 5 10:22:29 pap, IG + reflex HPV 2024 025 [facility], [address] [place], [address] 5 09:26:08 demar wet prep 2022 023 rberke In-Office Order, Internal Use Only DO Not Attach Compendium DO Not Attach Compendium, Do Not Delete/merge, 3 11:23:57 wet mount, vaginal 2022 023 rberke In-Office Order, Internal Use Only DO Not Attach Compendium DO Not Attach Compendium, Do Not Delete/merge, 3 11:23:57 whiff test, vaginal fluid 2022 023 rberke In-Office Order, Internal Use Only DO Not Attach Compendium DO Not Attach Compendium, Do Not Delete/merge, [id number] 3 11:23:57 ph, vaginal fluid 2022 023 rberke In-Office Order, Internal Use Only DO Not Attach Compendium DO Not Attach Compendium, Do Not Delete/merge, [id number] 3 11:23:57 urinalysis , dipstick 2021 022 rberke In-Office Order, Internal Use Only DO Not Attach Compendium DO Not Attach Compendium, Do Not Delete/merge, [id number] 10:06:58 fecal occult blood, stool 2021 rberke In-Office Order, Internal Use Only DO Not Attach Compendium DO Not Attach Compendium, Do Not Delete/merge, [id number] 10:06:58 Referral None recorded. Procedures None recorded. Surgeries None recorded. Imaging MAMMO, screening, digital, bilateral - bilateral screening u/s for dense breasts if needed. 2024 025 [facility], [address] [place] [address], [id number], 15:25:40 MAMMO, screening, digital, bilateral - If dense breasts (>50%), please proceed with bilateral breast screening ultrasound . 2021 022 [facility], [address] [place] [address], [id number], 12:35:31 Medication Orders None recorded. Patient TargetsNo targets recorded. Patient Instructions Encounter Date Encounter Id Patient Instructions Last Modified By Organization Details Last Modified Time 05/07/2021 [id number] vulvar pain: car e instructions rberke Not available 05/07/2021 15:36:04 07/23/2021 [id number] vulvar pain: car e instructions rberke Not available 07/23/2021 16:35:07 12/31/2021 [id number] vulvar pain: car e instructions rberke Not available 12/31/2021 10:06:58 06/24/2022 [id number] vulvar pain: car e instructions rberke Not available 06/24/2022 11:23:57 12/13/2024 [id number] self breast exam education rberke Not available 12/13/2024 10:22:29 tips to help you stay healthy rberke Not available 12/13/2024 10:22:29 Reason for Referral None Reported. Results Created Date Observation Date Name Description Value Unit Range Abnormal Flag Note LastModifiedBy Organization Detail LastModifiedTime 01/01/2012/31/2021 fecal occul t blood , stool Occult Blood negati ve Not Available In-Office Order Internal Use Only DO Not Attach Compendium DO Not Attach Compendium, Do Not Delete/merge, [id number] 12/28/2021 16:08:17 01/01/20 22 12/31/2021 urina lysis , dipst ick Interpretati on negati ve Not Available In-Office Order Internal Use Only DO Not Attach Compendium DO Not Attach Compendium, Do Not Delete/merge, [id number] 12/28/2021 16:08:17 01/01/2012/31/2021 urina lysis , dipst ick Leukocytes Negati ve Not Available In-Office Order Internal Use Only DO Not Attach Compendium DO Not Attach Compendium, Do Not Delete/merge, [id number] 12/28/2021 16:08:17 01/01/20 22 12/31/2021 urina lysis , dipst ick Nitrite negati ve Not Available In-Office Order Internal Use Only DO Not Attach Compendium DO Not Attach Compendium, Do Not Delete/merge, [id number] 12/28/2021 16:08:17 01/01/20 22 12/31/2021 urina lysis , dipst ick Urobilinogen Normal : 0.2 mg/dl Not Available In-Office Order Internal Use Only DO Not Attach Compendium DO Not Attach Compendium, Do Not Delete/merge, [id number] 12/28/2021 16:08:17 01/01/20 22 12/31/2021 urina lysis , dipst ick Protein Negati ve Not Available In-Office Order Internal Use Only DO Not Attach Compendium DO Not Attach Compendium, Do Not Delete/merge, [id number] 12/28/2021 16:08:17 01/01/20 22 12/31/2021 urina lysis , dipst ick pH 5.0 Not Available In-Office Order Internal Use Only DO Not Attach Compendium DO Not Attach Compendium, Do Not Delete/merge, [id number] 12/28/2021 16:08:17 01/01/20 22 12/31/2021 urina lysis , dipst ick Blood Negati ve Not Available In-Office Order Internal Use Only DO Not Attach Compendium DO Not Attach Compendium, Do Not Delete/merge, [id number] 12/28/2021 16:08:17 01/01/20 22 12/31/2021 urina lysis , dipst ick Specific [place] 1.000 Not Available In-Off ice Order Internal Use Only DO Not Attach Compendium DO Not Attach Compendium, Do Not Delete/merge, [id number] 12/28/2021 16:08:17 01/01/20 22 12/31/2021 urina lysis , dipst ick Ketone Negati ve Not Available In-Office Order Internal Use Only DO Not Attach Compendium DO Not Attach Compendium, Do Not Delete/merge, [id number] 12/28/2021 16:08:17 01/01/20 22 12/31/2021 urina lysis , dipst ick Bilirubin Negati ve Not Available In-Office Order Internal Use Only DO Not Attach Compendium DO Not Attach Compendium, Do Not Delete/merge, [id number] 12/28/2021 16:08:17 01/01/20 22 12/31/2021 urina lysis , dipst ick Glucose Negati ve Not Available In-Office Order Internal Use Only DO Not Attach Compendium DO Not Attach Compendium, Do Not Delete/merge, [id number] 12/28/2021 16:08:17 01/01/20 22 12/31/2021 urina lysis , dipst ick Appearance Clear Not Available In-Offi ce Order Internal Use Only DO Not Attach Compendium DO Not Attach Compendium, Do Not Delete/merge, [id number] 12/28/2021 16:08:17 01/01/20 22 12/31/2021 urina lysis , dipst ick Color Yellow Not Available In-Office Order Internal Use Only DO Not Attach Compendium DO Not Attach Compendium, Do Not Delete/merge, [id number] 12/28/2021 16:08:17 06/25/19 23 06/24/2022 ph, vagin al fluid Vaginal pH 4.5 Not Available In-Offi ce Order Internal Use Only DO Not Attach Compendium DO Not Attach Compendium, Do Not Delete/merge, [id number] 06/24/2022 11:22:12 06/25/19 23 06/24/2022 whiff test, vagin al fluid Result negati ve Not Available In-Office Order Internal Use Only DO Not Attach Compendium DO Not Attach Compendium, Do Not Delete/merge, [id number] 06/24/2022 11:22:12 06/25/19 23 06/24/2022 wet mount , vagin al Wet Mount, Vaginal normal lactob acilli and normal epithe lial cells. Not Available In-Office Order Internal Use Only DO Not Attach Compendium DO Not Attach Compendium, Do Not Delete/merge, [id number] 06/24/2022 11:22:11 06/25/19 23 06/24/2022 demar wet prep Yeast Absent Not Available In-Office Order Internal Use Only DO Not Attach Compendium DO Not Attach Compendium, Do Not Delete/merge, [id number] 06/24/2022 11:22:11 12/14/19 25 12/13/2024 hemog lobin , gastr ointe sierra l, stool Occult Blood negati ve Not Available In-Office Order Internal Use Only DO Not Attach Compendium DO Not Attach Compendium, Do Not Delete/merge, [id number] 12/13/2024 10:00:03 12/14/19 25 12/13/2024 urina lysis , dipst ick Interpretati on negati ve Not Available In-Office Order Internal Use Only DO Not Attach Compendium DO Not Attach Compendium, Do Not Delete/merge, [id number] 12/13/2024 10:00:07 12/14/19 25 12/13/2024 urina lysis , dipst ick Leukocytes Negati ve Not Available In-Office Order Internal Use Only DO Not Attach Compendium DO Not Attach Compendium, Do Not Delete/merge, [id number] 12/13/2024 10:00:07 12/14/1912/13/2024 urina lysis , dipst ick Nitrite negati ve Not Available In-Office Order Internal Use Only DO Not Attach Compendium DO Not Attach Compendium, Do Not Delete/merge, [id number] 12/13/2024 10:00:07 12/14/19 25 12/13/2024 urina lysis , dipst ick Urobilinogen Normal : 0.2 mg/dl Not Available In-Office Order Internal Use Only DO Not Attach Compendium DO Not Attach Compendium, Do Not Delete/merge, [id number] 12/13/2024 10:00:07 12/14/19 25 12/13/2024 urina lysis , dipst ick Protein Negati ve Not Available In-Office Order Internal Use Only DO Not Attach Compendium DO Not Attach Compendium, Do Not Delete/merge, [id number] 12/13/2024 10:00:07 12/14/19 25 12/13/2024 urina lysis , dipst ick pH 5.0 Not Available In-Office Order Internal Use Only DO Not Attach Compendium DO Not Attach Compendium, Do Not Delete/merge, [id number] 12/13/2024 10:00:07 12/14/19 25 12/13/2024 urina lysis , dipst ick Blood Negati ve Not Available In-Office Order Internal Use Only DO Not Attach Compendium DO Not Attach Compendium, Do Not Delete/merge, [id number] 12/13/2024 10:00:07 12/14/19 25 12/13/2024 urina lysis , dipst ick Specific [place] 1.000 Not Available In-Off ice Order Internal Use Only DO Not Attach Compendium DO Not Attach Compendium, Do Not Delete/merge, [id number] 12/13/2024 10:00:07 12/14/19 25 12/13/2024 urina lysis , dipst ick Ketone Negati ve Not Available In-Office Order Internal Use Only DO Not Attach Compendium DO Not Attach Compendium, Do Not Delete/merge, [id number] 12/13/2024 10:00:07 12/14/1912/13/2024 urina lysis , dipst ick Bilirubin Negati ve Not Available In-Office Order Internal Use Only DO Not Attach Compendium DO Not Attach Compendium, Do Not Delete/merge, [id number] 12/13/2024 10:00:07 12/14/1912/13/2024 urina lysis , dipst ick Glucose Negati ve Not Available In-Office Order Internal Use Only DO Not Attach Compendium DO Not Attach Compendium, Do Not Delete/merge, [id number] 12/13/2024 10:00:07 12/14/1912/13/2024 urina lysis , dipst ick Appearance Clear Not Available In-Offi ce Order Internal Use Only DO Not Attach Compendium DO Not Attach Compendium, Do Not Delete/merge, [id number] 12/13/2024 10:00:07 12/14/1912/13/2024 urina lysis , dipst ick Color Yellow Not Available In-Office Order Internal Use Only DO Not Attach Compendium DO Not Attach Compendium, Do Not Delete/merge, [id number] 12/13/2024 10:00:07 12/16/1912/15/2024 THINP REP PAP TEST (IMAG ER) WITH HPV REFLE X report Report Final Gynec ologi rigoberto Cytol ogy Repor t ----- ----- ----- ----- ----- ----- ----- ----- ----- ----- ----- ----- ThinP rep Pap Test with HPV Refle x SPECI MEN ADEQU ACY: SATIS FACTO RY FOR EVALU ATION . INTER PRETA TION: NEGAT HEVER FOR INTRA EPITH BREN Matt OR SHAD CHOW . Maegan Arellano d: Evy Condon, [place] (ASCP ) ----- ----- ----- ----- ----- ----- ----- ----- ----- ----- ----- ----- CLINI RIGOBERTO INFOR SANTHOSH N: LMP: NG Clini rigoberto Histo ry: NG Biops y Date: NG Speci men Sour e: Cervi x, Endoc ervix Previ ous Pap Date: NG CPT Codes : 13522 ICD Codes : Z12.4 Not Available [facility] [address] [place], [address] 12/19/2024 09:26:08 Result Notes None recorded. Problems Name Problem SNOMED Code Status Onset Date Resolution Date Notes Provider Name and Address Organization Details Recorded Time Allergic rhinitis 28573948 Active 2017 Marissa Abel null, [facility] 8 14:27:53 Depressive disorder 32715980 Active 2017 Marissa Abel null, [facility] 8 14:28:01 Gastroesop hageal reflux disease 420309413 Active 2017 Marissa Abel null, [facility] 8 14:28:08 Gallstone 924640935 Active 2017 Marissa Abel null, [facility] 8 14:28:20 Hyperchole sterolemia 43700041 Active 2017 Marissa Abel null, [facility] 8 14:28:28 Irritable bowel syndrome 08393438 Active 2017 Marissa Abel null, [facility] 8 14:28:34 Solitary nodule of lung 765679050 Active 2017 Marissa Abel null, [facility] 8 14:28:48 Atrophic vaginitis 84907503 Active 2017 Marissa Abel null, [facility] 8 14:30:28 Chronic vulvitis 4881035 Active 2017 Marissa Abel null, [facility] 8 14:30:39 Vulvodynia 062225077 Active 2017 Marissa Roman null, [place] - [facility] 8 14:30:48 Atrophy of vagina 883050400 Active 2017 Rick Worthy null, [facility] 8 10:06:03 Prolapsed lumbar interverte bral disc 273845748 Active 2019 L3-4 diffuse annular bulge on MRI L4-5 possible abutment of the left L5 nerve root in the lateral recess due to narrowing of the lateral recesses. KAIN MONAHAN MD [address] [facility], [address] [facility], [place], [address], [facility] 1 17:12:49 Prediabete s 799009561 Active 2024 Kelli Zuniga null, [facility] 5 09:53:16 Problem Notes None recorded. Procedures Surgical History Date Name Laterality Status Provider Name and Address Organization Details Recorded Time 12/14/19 25 Medicare Exam completed KAIN MONAHAN MD [address] [facility], [address] [facility], [place], [address], [facility] 12/13/2024 10:15:22 12/14/19 25 Screening PAP Medicare completed KAIN MONAHAN MD [address] [facility], [address] [facility], [place], [address], [facility] 12/13/2024 10:15:28 07/09/19 22 Date of Last Colonoscopy completed Kelli Zuniga [facility] 12/31/2021 09:33:15 04/25/19 22 Date of Last Mammogram completed Kelli Zuniga [facility] 12/31/2021 09:32:36 05/09/19 21 Colposcopy Procedure Note completed KAIN MONAHAN MD [address] [facility], [address] [facility], [place], [address], [facility] 05/08/2020 12:20:34 02/15/20 20 Generic Procedure completed VLADIMIR JOYCE CNM [address] [facility], 3rd Floor, [place], [address], [facility] 02/15/2020 11:43:39 02/14/20 20 Colposcopy Procedure Note completed KAIN MONAHAN MD [address] [facility], 3rd Floor, [place], [address], [facility] 02/19/2020 15:45:43 02/08/20 20 Generic Procedure completed ESTEPHANIA CORDERO CNM [address] [facility], [address] [facility], [place], [address], [facility] 02/08/2020 12:46:08 11/11/19 20 Date of Last Pap Smear completed Sara Orellana [facility] 12/04/2020 10:37:30 06/23/19 15 Sigmoidoscopy and biopsy completed [facility] 09/30/2017 14:36:05 04/27/19 11 Colonoscopy completed [facility] 09/30/2017 14:36:23 03/10/18 85 Unlisted px accessory sinus completed [facility] 09/30/2017 14:34:54 Tonsillectomy completed [facility] 09/30/2017 14:34:02 Laparoscopy completed [facility] 09/30/2017 14:34:31 Colposcopy completed [facility] 09/30/2017 14:35:12 LEEP completed [facility] 09/30/2017 14:35:30 Imaging Results None recorded. Procedure Notes None recorded. Medical Equipment None Reported. Allergies Allergen ID Allergen Name Allergen Category Reaction Reaction Severity Criticality Documentation Date Start Date Code Code System Note Provider Name and Address Organization Details Recorded Time 6089649 honey bee venom medicatio n Not available Not available Not available 09/30/2017 04659 7 [facility] 8 14:25:31 [id number] Substance with sulfonami de structure and antibacte rial mechanism of action (substanc e) medicatio n Not available Not available Not available 09/30/2017 80677 8003 SNOMED Marissa Abel null, [facility] 8 14:25:41 3505798 metronida zole medicatio n Not available Not available Not available 09/30/2017 6922 RxNorm Marissa Abel null, [facility] 8 14:26:02 0893902 betametha sone medicatio n Not available Not available Not available 09/30/2017 1514 RxNorm Marissa Abel null, [facility] 8 14:26:13 2785327 latex environme nt,medica tion Not available Not available Not available 09/30/2017 67905 91 RxNorm Marissa Abel null, [facility] 8 14:26:20 7221836 sorbitol food,medi cation Not available Not available Not available 09/30/2017 9945 RxNorm Marissa Abel null, [facility] 8 14:26:29 5481892 gabapenti n medicatio n Not available Not available Not available 03/16/2018 65308 RxNorm DO NOT USE DO NOT USE null, [facility] 9 14:44:21 2876260 Cipro medicatio n Not available Not available Not available 05/17/201955975 3 RxNorm Anna Marie Blanc null, [facility] 0 11:31:45 8349247 Zantac medicatio n Not available Not available Not available 05/17/2019 61992 3 RxNorm prn Anna Marie Blanc null, [facility] 0 11:33:20 Medications Name Sig Start Date [...] completed Not Available Not Available Not Available Elena Maintena 400 mg suspension ,extended rel. intramuscu lar syringe INJECT ONE SYRINGE INTO THE MUSCLE ONCE A MONTH active Not Available Not Available No t Available BD Darlyn 2nd Gen Pen Needle 32 gauge x 5/32 ONCE A WEEK 90 DAYS active Not [...] and Address Organization Details Last Updated DateTime 05/07/2021 157.48 cm 31.1 kg/m2 97064.7 g 126/78 mm[Hg] Sara Orellana [place] - [facility] 05/07/2021 11:46:11 Date Recorded Body height Systolic And Diastolic Provider Name and Address Organization Details Last Updated DateTime 07/23/2021 157.48 cm 140/76 mm[Hg] Sara Reyna [facility] 07/23/2021 13:02:24 Date Recorded Body height Body mass index (BMI) Body weight Systolic And Diastolic Provider Name and Address Organization Details Last Updated DateTime 12/13/2024 157.48 cm 35.3 kg/m2 71165.33 g 120/80 mm[Hg] Kelli Duncantiz [facility] 12/13/2024 09:57:48 Date Recorded Body height Body mass index (BMI) Body weight Systolic And Diastolic Provider Name and Address Organization Details Last Updated DateTime 12/31/2021 157.48 cm 30.7 kg/m2 08473.52 g 122/76 mm[Hg] [facility] 12/31/2021 09:43:23 Social History Question Answer Notes LastModified by Organizat ion Details LastModified Time Tobacco Smoking Status Former Smoker Sara Orellana null, [facility] 07/23/2021 12:40:05 Is Blood Transfusion Acceptable In [...] You Or Threaten To Hurt You? No [email or web address] Information not available 09/30/2017 Has Your Partner Forced You To Have Sex Or Perform Sex Acts When You Did Not Want To? No [email or web address] Information not available 09/30/2017 Does Your Partner Insult, Scream At Or Talk Down To You? No [email or web address] Information not available 09/30/2017 Does Your Partner Control You Or Any Part Of Your Life? No [email or web address] Information n ot available 09/30/2017 Are You Afraid Of Your Partner? No Information not available 09/30/2017 Do You Feel Safe At Home? Yes [email or web address] Information not available 09/30/2017 What Was The Date Of Your Most Recent Tobacco Screening? 12/13/2024 [email or web address] Information not available 12/13/2024 Are You Sexually [...] anxious, or unable to sleep at night)? [id number] Information not available 07/23/2021 Do you have difficulty concentrating, remembering or making decisions? No Information no t available 12/31/2021 Family History Relationship Description Onset Age of this Age Resolved Age Notes LastModified by Organization Details LastModified Time Mother Diabetes mellitus [email or web address] Not available 2017 14:38:03 Mother Malignant neoplasm of pancreas [email or web address] Not available 2017 14:38:34 Maternal Grandmother Diabetes mellitus [email or web address] Not available 2017 14:38:03 Maternal Grandmother Hypertensive disorder [email or web address] Not available 2017 14:39:49 Maternal Grandmother Cerebrovascu lar accident 72 [email or web address] Not available 14:39:59 Father Malignant neoplasm of lung 62 smoker , absest os exposu re [email or web address] Not available 09/30/2017 14:39:02 Father Bronchitis [email or web address] Not available 12/13/2024 09:14:31 Maternal Grandfather Disorder of lung TB - in his 70's [email or web address] Not available 12/13/2024 09:14:32 Paternal Grandmother Heart disease 80 [email or web address] Not available 2017 14:40:59 Paternal Aunt Malignant neoplasm of breast [email or web address] Not available 2017 14:41:27 Maternal Aunt Malignant neoplasm of stomach 60 [email or web address] Not available 2024 09:14:32 Maternal Aunt Malignant neoplasm of ovary [email or web address] Not available 2017 14:42:51 Unspecified Relation Malignant neoplasm of ovary matern al cousin [email or web address] Not available 09/30/2017 14:42:51 Sister Asthma shammell Not available 0 05/17/2019 11:34:24 Sister Chronic obstructive pulmonary disease [email or web address] Not available 2024 09:14:32 Medical History Condition Response Other N *No Diseases or Conditions N Blood clots N Breast Cancer N Colon cancer N Benign breast disease N Depression Y Lung Disease N Defects or Inherited Disease N Anesthesia Complications N Headaches/Migraines N Have you ever been on isolation N Anxiety Disorder N Arthritis N HSV N Infertility N Interstitial Cystitis N Abnormal pap Y Acid Reflux (GERD) N Cancer N Stroke N Endometriosis N Spina Bifida N HIV N Heart Problems N Sexual Dysfunction N Autoimmune disorder N Kidney or Bladder Problems N Thyroid Problems N GI Problems Y Eating Disorder [...] 30 mcg/0.3 mL dose 1 completed Sara schneider [facility] 07/31/2020 11:34:02 COVID-19, mRNA, LNP-S, PF, 30 mcg/0.3 mL dose [facility] 11:34:16 Influenza, split virus, quadrivalent, preservative 2 completed Kelli Zuniga [facility] 12/31/2021 09:32:05 Past Encounters Encounter ID Performer Location Encounter Start Date Encounter Closed Date Diagnosis/Indication Diagnosis SNOMED-CT Code Diagnosis ICD10 Code Diagnosis IMO Codes Diagnosis Note [id number] SHIRLEY KNOWLES APRN [facility] [place] [address] 09/30/2017 13:53:26 09/30/2017 15:11:01 Candidal vulvovaginitis 02478079 B37.3 Yeast is unlikely in view of severe atrophy of the vagina but must rule out anyway Vulvodynia 401138955 N94 .819 primarily expressed as clitorodyn ia; clitoris is swollen and inflamed Subacute a nd chronic vulvitis N.3 Will start Betamethas one valerate Atrophic vulva 975015038 N90.5 hold on treatment for now Atrophy of vagina 887010 009 N95.2 Re insert Estring as no cream etc touches your skin and you did tolerate it well before . [id number] SHIRLEY KNOWLES APRN SHE[address] [place] [address] 10/28/2017 14:18:39 10/28/2017 15:01:55 Atrophy of vagina 045292643 N95.2 Placed for her Subacute a nd chronic vulvitis N76.3 Will start Betamethas one valerate after she returns from vacation to [place] at the end of November Atrophic vulva 026568976 N90.5 hold on treatment for now [id number] VLADIMIR JOYCE, HEIDI [address] [facility] [place] [address] 11/12/2017 13:29:08 11/12/2017 14:18:32 Atrophy of vagina 019386759 N95.2 Encouraged and reassured pt that estrogeniz ation seems like doing very well. Continue with Estring Disorder of vulva 518173 7 N90.9 ? if vulvodynia given normal exam and continued burning and discomfort . Pt is following up with DPF in 3 weeks. Will r/o any possibilit y of yeast. [id number] SHIRLEY KNOWLES APRN SHE[facility] [address] [place] [address] 12/19/2017 15:38:29 12/19/2017 16:54:05 Incomplete emptying of urinary bladder 216173782 R39.14 negative dip today Candidal vulvovaginitis 47383998 B37.3 Monitor for yeast secondary to estrogen and steroid use Vulvodynia 453379311 N94 .819 Presumptiv e vulvodynia flare; Do not believe related to Betamethas one use as she used it everday in [place] without any burning Has RX for desipramin e 10 mg encouraged to trial for pain and to go slowly If it increases IBS issues will not continue she is also concerned by potential aggravatio n of IBS will increase Mirolax as needed Also worried about weight gain which is legititmat e concern Atrophy of vagina 506275 009 N95.2 Continue Estring Doing very well with normal ph today Anxiety 59286049 F41.9 Has appointmen t with Psych for evaluation of meds for anxiety Subacute a nd chronic vulvitis N.3 Continue Betamethas one 3-7 times per week Tolerated without any problem when using daily in [place] and I do not think that this is the cause of vulvar burning [id number] SHIRLEY KNOWLES APRN SHE[address] [place] [address] 01/02/2018 09:59:34 01/02/2018 10:43:21 Vulvodynia 533705544 N94.819 Much improved today Estring, loratidine 1/24 hours ofr Benadryl(w cindyh she does not like touse as it makes her very sleepy). Best she has felt this year. Atrophy of vagina 742033 009 N95.2 Continue Estring Doing very well with normal ph today Subacute a nd chronic vulvitis N76.3 Continue Betamethas one 3-7 times per week; Continues to tolerate well Has been only applying to clitoral area but have encouraged her to apply in the introitus as well [id number] SHIRLEY KNOWLES APRN SHE[address] [place] [address] 01/27/2018 13:30:59 01/27/2018 14:15:57 Chronic vulvitis 8520235 N76.3 Continue Betamethas one 3-7 days a week May go up to twice a day during flares Vulval pain [id number] R1 0.2 Monitor for now She is very reluctant to take systemic meds Atrophy of vagina 040297 009 N95.2 Continue Estring Doing very well with normal ph today [id number] KAIN MONAHAN MD SHE[address] [place] [address] 02/11/2018 11:53:28 02/11/2018 14:33:06 Vulvodynia 947270275 N94.819 N94.818 Long discussion with patient and spouse about etiology of her vulvodynea . Discussed treatment medication s for vulvodynea . R/B of various medication s reviewed and patient decided she would like to try Lyrica to start with. Patient is very sensitive to medication s, so will start with half (75mg) the usual dosage of 150mg /day. Patient to f/u in March to see how patient is doing. Encounter time lasted 40 minutes of which greater than 50% of the time was spent on counseling and the rest on exam. Patient was given adequate time to ask questions and seemed to demonstrat e an understand ing of the informatio n reviewed. 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 Patient aware that she is on a starting dose of lyrica. Will adjust up to 100mg per day. Patient aware of side affects but so far doing ok. Also advised to start a DHEA supplement which may help with a sense of patient's overall well being. Advised to RTO in 3 months for f/u. Encounter time lasted 15 minutes of which greater than 50% of the time was spent on counseling and the rest on exam. Patient was given adequate time to ask questions and seemed to demonstrat e an understand ing of the informatio n reviewed. Vaginal di scharge symptom 115027100 N89.8 Patient reassured that phase contrast microscopi c findings were normal. Irritable bowel syndrome 44666388 K58.9 will continue with pro-biotic s. uses 1-2 mongolian yogurts daily. will continue, and discuss with GI adding a probiotic tablet. [id number] SHIRLEY KNOWLES APRN SHE[address] [place] [address] 05/05/2018 12:42:36 05/05/2018 13:37:17 Vulvodynia 907140339 N94.819 Much improved today Estring, loratidine 1/24 hours ofr Benadryl(w hich she does not like touse as it makes her very sleepy). Best she has felt this year. Subacute a nd chronic vulvitis 176511081 N76.3 Continue Betamethas one 3-7 times per week; Continues to tolerate well Has been only applying to clitoral area but have encouraged her to apply in the introitus as well Atrophy of vagina 574109 009 N95.2 Continue Estring Doing very well with normal ph today Able to remove herself this am before appt Able to reinsert with sone coaching [id number] KAIN MONAHAN MD SHE[address] [place] [address] 06/08/2018 15:28:23 06/08/2018 16:43:28 Vulvodynia 700121458 N94.818 Reviewed current symptoms. Patient aware that she is on a starting dose of lyrica. Will keep steady at 75 mg per day. Patient aware of side affects but so far doing ok. Also advised to start a DHEA supplement which may help with a sense of patient's overall well being. Advised to RTO in 3 months for f/u. Encounter time lasted 15 minutes of which greater than 50% of the time was spent on counseling and the rest on exam. Patient was given adequate time to ask questions and seemed to demonstrat e an understand ing of the informatio n reviewed. Vaginal di scharge symptom 996416513 N89.8 Patient reassured that phase contrast microscopi c findings were normal. 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 I do not think this is allergy. Anxiety 11374377 F41.9 Her anxiety is complicati ng her coping mechanisms regarding vulvar pain Urinary bladder pain 158 34583 R39.82 Will try OYC pyridium 100 mg tid to see if it helps with bladdr pain Not to exceed 200 mg per day [id number] SHIRLEY KNOWLESAISHA ALLEN SHE[address] [place] [address] 07/31/2018 09:31:53 07/31/2018 10:19:33 Atrophy of vagina 789903116 N95.2 Continue Estring Doing very well with normal ph today Able to remove herself this am before appt Did not attempt re insertion today Estring placed for her today [id number] KAIN MONAHAN MD SHE[address] [place] [address] 09/21/2018 12:22:07 09/21/2018 13:22:09 Vulvodynia 798006444 N94.818 will try capsaicin cream to the low back. Also advised that her GI doctors nortriptyl ine would likely help her vulvodynia also, but patient is reluctant to start as of now. Advised to use capsaicin BIW -QIW as tolerated and directed. RTO in 1 week. Vaginal di scharge symptom 721634873 N89.8 Patient reassured that phase contrast microscopi c findings were normal. [id number] KAIN MONAHAN MD SHE[address] [place] [address] 09/28/2018 12:48:24 09/28/2018 13:52:05 Vulvodynia 314371626 N94.818 Did not tolerate capsacein. Advised to start nortriptyl ine. RTO in 1 month. [id number] KAIN MONAHAN MD [facility] [address] [place] [address] 11/02/2018 10:56:59 11/02/2018 11:37:02 Atrophic vaginitis 87545204 N95.2 encouraged to stay the course and leave E-string in and was able to tolerate. Changed E-string herself a week or 2 ago. Feels comfortabl e. Vulvodynia 289635919 N94 .818 Did not tolerate capsaicin. Advised to start nortriptyl ine but did not want to do so. Pain seems to be settling down. Will observe for now. Going to [place] [facility] for a couple of weeks and will take along nortriptyl ine just in case she needs, but wants to avoid. Occ applies betamethas one to vulva mixed with Vaseline, so will check vulva in 3 months. Encounter time lasted 15 minutes of which greater than 50% of the time was spent on counseling and the rest on exam. Patient was given adequate time to ask questions and seemed to demonstrat e an understand ing of the informatio n reviewed. RTO in 1 month. [id number] KAIN MONAHAN MD SHE[address] [place] [address] 01/25/2019 09:53:57 01/25/2019 11:13:10 Atrophic vaginitis 26253370 N95.2 encouraged to stay the course and leave E-string in and was able to tolerate. Changed E-string herself a week or 2 ago. Feels comfortabl e. Sometimes gets a white coating. OK to remove and wash with some warm soapy water and then re-insert at approx 6 weeks (once in between changes.. Chronic vulvitis 4476826 N76.3 occ use of betamethas one ointment. Reviewed frequency of use and restrictio ns. Vulvodynia 739107993 N94 .818 considerin g CBD oil from [employer]. Long discussion of using this medication from chronic pain syndromes. Encounter time lasted 25 minutes of which greater than 50% of the time was spent on counseling and the rest on exam. Patient was given adequate time to ask questions and seemed to demonstrat e an understand ing of the informatio n reviewed. Bacterial vaginosis 4197 70446 N76.0 Patient to take antibiotic as prescribed . Encouraged probiotics . Can RTO in 4-6 weeks for a re-check. [id number] KAIN MONAHAN MD SHE[address] [place] [address] 05/17/2019 11:19:21 05/17/2019 12:16:43 Gynecologic examination 67548945 Z01.419 Z01.411 Menopause present 874674 006 N95.1 Review when to perform bone density evaluation : Screening mammography 24 546459 Z12.31 Advised to obtain a yearly screening mammogram and to perform monthly self breast exam. Screening for malignant neoplasm of rectum 610878203 Z12.12 FIT test performed and was negative. Depression screening 171 375231 Z13.31 Depression screening done. Vulvodynia 314997848 N94 .818 stable now. Will f/u in 6 months both vulvodynia and atrophy changes. [id number] KAIN MONAHAN MD SHE[address] [facility] [place] [address] 12/13/2019 10:29:27 12/13/2019 15:45:12 Vulvodynia 319043161 N94.818 Mainly clitorodyn ea. However may have a slight amount of lichen change since unable to clean off whitish area on right side of clitoris with saline. Will f/u in 1 month after using TIW low dose steroid. Vaginal di scharge symptom 345806229 N89.8 Patient reassured that phase contrast microscopi c findings were normal. [id number] KAIN MONAHAN MD SHE[address] [facility] [place] [address] 01/17/2020 12:09:00 01/17/2020 15:06:30 Vaginal discharge symptom 400454658 N89.8 Patient reassured that phase contrast microscopi c findings were normal. swab from clitoris taken of whitish coating/sk in changes. Vulvodynia 071304725 N94 .818 Mainly clitorodyn ea. However may have a slight amount of lichen change since unable to clean off whitish area on right side of clitoris with saline. steroid has not been able to reduce whitish coating. Will f/u in 4-6 weeks with colposcopy and possible biopsy of clitoral area to verify no abnormal skin changes in this area. Advised that we would be very superficia l and use 1% lidocaine for pre-proced ure analgesia. Advised to start on duloxetine which has been very successful in treating pain syndromes. [id number] ESTEPHANIA CORDERO CNM SHE[address] [place] [address] 02/08/2020 12:05:06 02/08/2020 15:57:54 Candidal vulvovaginitis 86265937 B37.3 [id number] KAIN MONAHAN MD SHE[address] [place] [address] 02/14/2020 08:34:20 02/14/2020 09:28:39 Lesion of vulva 628960171 N90.89 biopsy deferred until finished with gentian mike therapy. GV Tx to be performed tomorrow (all out of gentian mike in the [place] office today). [id number] VLADIMIR JOYCE CNM SHE[address],[facility] [address] [place] [address] 02/15/2020 10:50:29 02/16/2020 12:25:55 Fungal infection by site 338517442 B35.8 Tolerated well. Awaiting next week for 3rd visit. Will call on Friday to see if any openings on Friday otherwise will return on Friday. [id number] SHIRLEY KNOWLES APRN SHE[address],[facility] [address] [place] [address] 02/22/2020 13:18:31 02/22/2020 14:05:17 Candidal vulvovaginitis 93720784 B37.3 Patient was diagnosed with yeast. A decision to perform gentian mike applicatio n to the vagina was discussed and agreed to by the patient. A speculum was placed inside the vagina. An applicatio n of gentian mike dye was applied to all the surfaces of the vagina and the vulva. perineum and perinally Patient tolerated well. Advised to RTO in 3-4 weeks for test of cure. [id number] SHIRLEY KNOWLES APRN SHE[address] [place] [address] 03/17/2020 10:24:07 03/20/2020 11:41:59 Candidal vulvovaginitis 27416768 B37.3 Had 3 gentian mike applicatio n for unusual fungus cultured from the vagina Here for yeast culture Lesion of clitoris [address] Monahan He would like to have her schedule a colposcopi c guided biops of clitoral lesion [id number] KAIN MONAHAN MD SHE[address] [facility] [place] [address] 05/08/2020 11:14:49 05/08/2020 12:16:09 Lesion of clitoris 268178847 N90.89 patient here for colposcopi c guided biopsy of clitoral lesion Genital li redmond sclerosus 835138603 L90.0 suspect genital lesion is related to lichen sclerosus. Await biopsy results. F/u in 2 weeks to check healing and review results. [id number] KAIN MONAHAN MD SHE[address] [facility] [place] [address] 05/29/2020 09:00:14 05/29/2020 10:38:41 Genital lichen sclerosus 985358682 L90.0 Patient here for biopsy results. Revieweed etiology, natural course and treatment options. See below. Lesion of clitoris 34219 6009 N90.89 c/w lichen sclerosus. Will continue with steroid TIW Menopause present 142589 006 N95.1 Review when to perform bone density evaluation : Vulvodynia 587299899 N94 .818 Mainly clitorodyn ea since pain is described as an intermitte nt burning sensation and is not the ususal symptoms patient would describe LS with. However Bx confirms possible lichen change as identified by whitish area on right side of clitoris. Moderate steroid has not been able to reduce whitish coating. Will switch to clobetasol (super potent steroid for the next few months.) Additional ly, will start compounded vulvodynia cream prior and start clobetasol a few weeks later, to make sure patient tolerates both. Encounter time lasted (37 minutes) total with moderate decision making and which included the following times: reviewing chart/hist ory (5 minutes), patient exam (5 minutes), counseling patient regarding vulvodynia (18 minutes); documentin g in patient record (4 minutes) ordering labs and/or Rx through [facility] (5 minutes). Start time: 3:23 pm, Stop time: 4:00 pm. [id number] KAIN MONAHAN MD SHE[address] [facility] [place] [address] 07/31/2020 11:16:53 07/31/2020 12:47:22 Genital lichen sclerosus 383553826 L90.0 Patient feeling improved on TIW clobetasol . Advised to continue. do for annual at next exam. f/u AOV in 3 months advised. Vulvodynia 802339819 N94 .818 Mainly clitorodyn ea since pain is described as an intermitte nt burning sensation and is not the usual symptoms patient would describe LS with. Previous Bx confirmed possible lichen change as identified by whitish area on right side of clitoris. Moderate steroid has not been able to reduce whitish coating. Last visit steroid treatment was switched to clobetasol (super potent steroid for the next few months.) Compounded vulvar cream from [employer] containing gabapentin , amitriptyl ine, and baclofen was not helpful and if anything caused an increase in burning. Advised to stop the compoundin g cream. Lesion of clitoris 49685 6009 N90.89 c/w lichen sclerosus. Will continue with steroid TIW Vaginal di scharge symptom 911386629 N89.8 Patient reassured that phase contrast microscopi c findings were normal. [id number] KAIN MONAHAN MD SHE[address] [place] [address] 12/04/2020 10:16:44 12/04/2020 11:58:34 Gynecologic examination 54148880 Z01.411 Menopause present 315697 006 N95.1 Review when to perform bone density evaluation : Screening mammography 24 861227 Z12.31 Advised to obtain a yearly screening mammogram and to perform monthly self breast exam. Screening for malignant neoplasm of rectum 655331430 Z12.12 FIT test performed and was negative. Depression screening 171 252277 Z13.31 Depression screening done. Vulvodynia 071935152 N94 .818 Mainly clitorodyn ea since pain is described as an intermitte nt burning sensation and is not the usual symptoms patient would describe LS with. Previous Bx confirmed possible lichen change as identified by whitish area on right side of clitoris. Moderate steroid has not been able to reduce whitish coating.Wheeler s tried for the vulvodynea duloxetine , but had side affects of restlessne ss, frequent BMs, sweating, and heart racing. Advised to try a diluted specimen of capsaicin to the low back using 1 part capsaicin and 2 parts body lotion or cream. Advised to f/u in 3 months. Family his tory of breast cancer 649876891 Z80.3 Patient was postive for VUS of CHEk2 done by [facility]. [id number] KAIN MONAHAN MD SHE[address] [place] [address] 02/19/2021 12:25:24 02/19/2021 13:16:15 Vulvodynia 175336040 N94.818 Mainly clitorodyn ea since pain is described as an intermitte nt burning sensation and is not the usual symptoms patient would describe LS with. Previous Bx confirmed possible lichen change as identified by whitish area on right side of clitoris. Moderate steroid has not been able to reduce whitish coating.Ad vised to continue with the clobetasol , at least twice weekly. Has enough refills for now. Will RTO in 6 months.In the past has tried for the vulvodynea duloxetine , but had side affects of restlessne ss, frequent BMs, sweating, and heart racing. Advised to try a diluted specimen of capsaicin to the low back using 1 part capsaicin and 2 parts body lotion or cream. [id number] KAIN MONAHAN MD SHE[address] [place] [address] 05/07/2021 11:15:31 05/07/2021 12:44:56 Vulvodynia 469591452 N94.818 Mainly clitorodyn ea since pain is described as an intermitte nt burning sensation and is not the usual symptoms patient would describe LS with. Previous Bx confirmed possible lichen change as identified by whitish area on right side of clitoris. Moderate steroid has not been able to reduce whitish coating.Ad vised to continue with the clobetasol , at least twice weekly. Has enough refills for now. Will RTO in 6 months.In the past has tried the following vulvodynea meds: duloxetine , but had side affects of restlessne ss, frequent BMs, sweating, and heart racing. Could not tolerate nortriptyl ine or gabapentin , Lyrica or sertraline or desipramin e. Has used topical lidocaine gel but with no significan t improvemen t. Has tried a diluted specimen of capsaicin to the low back using 1 part capsaicin and 2 parts body lotion or cream withou relief..Ag ree with handicappe d parking since patient's symptoms are severe.For m for this filled out.Encoun ter time lasted (24 minutes) total with low decision making and which included the following times: reviewing chart/hist ory (3 minutes), patient exam (0 minutes), counseling patient (18 minutes); documentin g in patient record (3 minutes) ordering Rx through pharmacy (0minutes) . Start time: 12:15 PM, Stop time: 12:39 PM. [id number] KAIN MONAHAN MD [address] [facility] [address] [place] [address] 07/23/2021 12:38:36 07/23/2021 13:37:10 Genital lichen sclerosus 493076958 L90.0 Patient feeling improved on TIW clobetasol . Advised to continue. Whitish area to left of clitoris is almost resolved. Will check at annual. Continue clobetasol TIW until annual in fall. Vulvodynia 363558717 N94 .818 Previously discussed: Mainly clitorodyn ea since pain is described as an intermitte nt burning sensation and is not the usual symptoms patient would describe LS with. Previous Bx confirmed possible lichen change as identified by whitish area on right side of clitoris. Moderate steroid has not been able to reduce whitish coating.In the past has tried the following vulvodynea meds: duloxetine , but had side affects of restlessne ss, frequent BMs, sweating, and heart racing. Could not tolerate nortriptyl ine or gabapentin , Lyrica or sertraline or desipramin e. Has used topical lidocaine gel but with no significan t improvemen t. Has tried a diluted specimen of capsaicin to the low back using 1 part capsaicin and 2 parts body lotion or cream withou relief..Ag ree with handicappe d parking since patient's symptoms are severe.For m for this filled out.Now working with pain management to see if they can improve patient's clitorydyn ea and musculo-sk eletal complaints . Will F/u at time of annual in fall. [id number] KAIN MONAHAN MD SHE[address] [place] [address] 12/31/2021 09:20:32 12/31/2021 10:06:15 Gynecologic examination 33206476 Z01.419 Last pap was 05/17/19. Due for pap smear next year in 2022 Menopause present 801531 006 N95.1 Review when to perform bone density evaluation : Screening mammography 658357 Z12.31 Advised to obtain a yearly screening mammogram and to perform monthly self breast exam. Screening for malignant neoplasm of rectum 815289163 Z12.12 FIT test performed and was negative. Depression screening 171 635763 Z13.31 Depression screening done. Vulvodynia 946911799 N94 .818 clitoral area looks improved with clobetasol TIW.If has a flare, advised to purchase a TENS unit and charge up and bring to office to review placement of pads and settings to help use to control pain symptoms. Will F/u in 6 months or sooner for problems. [id number] KAIN MONAHAN MD SHE[address] [facility] [place] [address] 06/24/2022 09:57:53 06/24/2022 11:16:51 Vulvodynia 822233420 N94.818 clitoral area looks improved. Has not used clobetasol recntly.St arted with Tens unit which patient says has been extremely helpfulF/u in December for regular annual exam Vaginal di scharge symptom 854470374 N89.8 Patient reassured that phase contrast microscopi c findings were normal. [id number] KAIN MONAHAN MD SHE[address] [place] [address] 12/13/2024 09:14:02 12/13/2024 10:23:03 Gynecologic examination 87180144 Z01.419 [id number] Last pap was 05/17/19. Due for pap smear next year in 2022 Screening for malignant neoplasm of cervix 584091451 Z12.4 Menopause present 264539 006 N95.1 Review when to perform bone density evaluation . Screening mammography 503098 Z12.31 Advised to obtain a yearly screening mammogram and to perform monthly self breast exam. Screening for malignant neoplasm of rectum 105390039 Z12.12 FIT test performed and was negative. Depression screening 171 302690 Z13.31 Depression screening done. Health Concerns Section Related Observation LastModified by Organization Detai ls LastModified Time None Recorded Concern Status LastModified by Organization Details LastModified Time None Recorded Advance Directives Directive None Recorded Payers Insurance Date Sequence Insurance Name Policy Number Policy Rico Covered Member ID Rico Member ID Guarantor Name 07/15/2024 2 [place] [facility] [id number] Isreal B Jackson [id number] Reyna Jackson 12/09/2024 1 [place]: N[place] Reyna Jackson [id number] Reyna Jackson 12/22/2024 2 [place] [id number] Reyna Jackson [id number] Reyna Jackson Notes Date Note Type Note Provider Name and Address Organization Details Recorded Time 2 text/html Pt presents today for a follow up with [facility] for vulvodynia.Pt needs ppw filled for the [place] [employer] for a handicap parking pass. Pt states she cannot walk for long distances or long periods of time (> 30 feet) without experiencing severe pain and having to stop. Pt states she takes frequent breaks when walking, sitting in the car hurts, however, she has to do most of the driving since her spouse has parkinsons. This has caused major increase in anxiety.Pt states can only walk for an average of 30 ft without stopping before it starts to cause her severe vulvar pain. Most times the only relief she gets is by laying down. Spends most of the day sleeping because she is in so much pain. All medical tx we have tried for her vulvodynia have been unsuccessful. Pt looking into pain management for her condition in hopes she can find a remedy to her vulvar pain. Vulvar pain increases with irritable bowel flare. KAIN MONAHAN MD [address] [place] [address], 3[address] Floor, [place], [address], [place] [facility] 05/07/2021 15:36:09 2 text/html Pt here for a follow up on vulvodynia and lichen sclerosus. Has been using colbetasol TIW.Also since last visit, saw pain amanagement, and they are consideirng an injection nerve block.and if it works, they would consider a radioablation of that nerve to help.Pt reports she feels the same overall. Has good days and bad days.PPW filled out for RMV, last time ppw was done it was accidentally for temporary KAIN MONAHAN MD [address] [facility], 3rd Floor, [place], [address], [facility] 07/23/2021 16:35:10 2 text/html [facility] Annual GYNReported by PatientGenitourinary symptomsFor menstrual cycle, [...] anddexa needs to schedule. pt here for AOV MMG done 04/25/2021 Colonoscopy done 07/08/2021 , cleared until 2027 Pap 11/11/2019 n/nDexa 05-27-2020 osteopenia KAIN MONAHAN MD [address] [facility], [address] Floor, [place], [address], [facility] 12/31/2021 10:07:03 3 text/html Pt here for a follow up on vulvodynia and lichen sclerosus.Pt states she is no longer using the clobetasol. Pt states is using cbd cream and otc the counter creams and seems to be working for her.Recent hospitalization for a nervous breakdown. Sounds af if she might have received EST.Has been feeling much better, except for ability to lose weight.Discharge has been OK, and clitoral pain has almost resolved. KAIN MONAHAN MD [address] [facility], [address], [place], [address], [facility] 06/24/2022 11:24:01 text/html [facility] Annual GYNReported by PatientGenitourinary symptomsFor menstrual cycle, [...] osteopenia has appointment 01/06/25 KAIN MONAHAN MD [address] [facility], [address] Floor, [place], [address], [facility] 12/13/2024 10:22:36 OBGyn Episode No OBEpisode recorded.
--- OUTSIDE RECORDS SUMMARY | 2025-01-27 19:37 | XMS_ITS | Clinical Summary ---
Author Organization [facility] Address [address] [place] [address] Care Team Providers Care Moving Picture Operator Name Role Phone Unavailable Primary Care Provider Unavailabl e Social History Tobacco Use Types Packs/Day Years Used Date Smoking Tobacco: Never Assessed Sex and Gender Information Value Date Recorded Sex Assigned at Not on file Gender Identity Not on file Sexual Orientation Not on file Job Start Date Occupation Industry Not on file Not on file Not on file Plan of Treatment Not on file ManuelReyna Personal/Family Self 1955 [address] [place] [address]
--- OUTSIDE RECORDS SUMMARY | 2025-01-27 19:37 | XMS_ITS | Encounter Summary ---
Author Organization [facility] Address [address] [place] [address] Care Team Providers Care Mine Superintendent Name Role Phone Sandra Cruz MD Primary Care Provider [phone] Encounter Details Date Type Department Care Team (Late st Contact Info) Description 01/06/2025 Results Follow-Up Adult Medicine [facility] [address] [place], [place] [phone] Pamela King PA [address] [place] [phone] Social History Tobacco Use Types Packs/Day Years Used Date Smoking Tobacco: Some Days Cigarettes 0.3 Last attempted to quit: 06/27/2016 Smokeless Tobacco: Never Alcohol Use Standard Drinks/Week Comments No 0 [...] Record ed Within the last 3 months, tristen palmer many times did you visit the emergency [...] care for your loved ones. For example, child custody evaluator or elderly care for an older adult? [...] on file Sexual Orientation Not on file documented as of this encounter Plan of Treatment Upcoming Encounters Date Type Department Care Team (Late st Contact Info) Description 03/14/2025 1:20 PM EST Appointment Radiology Department [address] [address] documented as of this encounter Visit Diagnoses Not on filedocumented in this encounter Additional Health Concerns Assessment Noted Time PHQ-9 Depression Total Score: 0 04/09/19 25 11:51 AM EST documented as of this encounter Care Teams Mine Superintendent Relationship Specialty Start Date End Date Sandra Cruz MD [address] [place] [address] PCP - General Internal Medicine 06/14/20 documented as of this encounter
--- OUTSIDE RECORDS SUMMARY | 2025-01-27 19:37 | XMS_ITS ---
Author Name [facility] Unknown History of Medication Use Medication Directions Dispensed Refills Start Date End Date Stat Voltaren Arthritis Pain 1 % topical gel Voltaren Arthritis Pain 1 % topical gel 07/18/2021 completed albuterol sulfate HFA 90 mcg/actuation aerosol inhaler INHALE 2 PUFFS EVERY 4 HOURS NEEDED FOR WHEEZE OR FOR SHORTNESS OF BREATH INHALE 2 PUFFS EVERY 4 HOURS NEEDED FOR WHEEZE OR FOR SHORTNESS OF BREATH completed atorvastatin 10 mg tablet TAKE 1 TABLET BY MOUTH EVERY DAY TAKE 1 TABLET BY MOUTH EVERY DAY completed betamethasone valerate 0.1 % topical ointment apply a pea sized amount to vulva as shown twice a day apply a pea sized amount to vulva as shown twice a day completed Claritin prn prn completed clobetasol 0.05 % topical ointment APPLY A THIN LAYER SPARINGLY TO THE AFFECTED AREA(S) BY TOPICAL ROUTE 3 TIMES PER WEEK APPLY A THIN LAYER SPARINGLY TO THE AFFECTED AREA(S) BY TOPICAL ROUTE 3 TIMES PER WEEK completed EpiPen 2-Hebert 0.3 mg/0.3 mL injection, auto-injector USE DIRECTED USE DIRECTED completed ezetimibe 10 mg tablet TAKE 1 TABLET BY MOUTH EVERY DAY TAKE 1 TABLET BY MOUTH EVERY DAY completed hyoscyamine sulfate 0.125 mg tablet TAKE 1 TABLET BY MOUTH EVERY 6 HOURS NEEDED FOR CRAMPING TAKE 1 TABLET BY MOUTH EVERY 6 HOURS NEEDED FOR CRAMPING completed ibuprofen 600 mg tablet ibuprofen 600 mg tablet completed lidocaine 5 % topical ointment lidocaine 5 % topical ointment completed loratadine 10 mg tablet TAKE 1 TABLET BY MOUTH EVERY DAY TAKE 1 TABLET BY MOUTH EVERY DAY completed lorazepam 2 mg tablet TAKE 1 TABLET BY MOUTH AT BEDTIME TAKE 1 TABLET BY MOUTH AT BEDTIME completed Pain Relief Extra Strength 500 mg tablet TAKE 1 TABLET BY MOUTH EVERY 8 HOURS NEEDED FOR FEVER FOR 90 DAYS TAKE 1 TABLET BY MOUTH EVERY 8 HOURS NEEDED FOR FEVER FOR 90 DAYS completed rosuvastatin 10 mg tablet TAKE 1 TABLET BY MOUTH EVERY DAY TAKE 1 TABLET BY MOUTH EVERY DAY completed tizanidine 2 mg tablet START TAKING 1 TABLET AT BEDTIME. IF WELL TOLERATED, MAY INCREASE UP TO 2-3 TIMES PER DAY IF NEEDED. START TAKING 1 TABLET AT BEDTIME. IF WELL TOLERATED, MAY INCREASE UP TO 2-3 TIMES PER DAY IF NEEDED. 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 ProblemAct [facility] Atrophic vaginitis active 2017-09-30 ProblemAct [facility] Solitary nodule of lung active 2017-09-30 ProblemAct [facility] Allergic rhinitis active 2017-09-30 ProblemAct [facility] Atrophy of vagina active 2018-01-02 ProblemAct [facility] Chronic vulvitis active 2017-09-30 ProblemAct [facility] Gallstone active 2017-09-30 ProblemAct [facility] Prolapsed lumbar intervertebral disc active 2019-05-10 ProblemAct [facility] Gastroesophageal reflux disease active 2017-09-30 ProblemAct [facility] Depressive disorder active 2017-09-30 ProblemAct [facility] Immunizations Vaccine Date Source Lot Number Status influenza, injectable, quadrivalent [facility] COVID-19, mRNA, LNP-S, PF, 3 0 mcg/0.3 mL dose (Clupedia) 06/21/2020 [facility] COVID-19, mRNA, LNP-S, PF, 3 0 mcg/0.3 mL dose (Clupedia) 05/31/2020 [facility] completed Encounters Encounter Type Encounter Reason Primary Diagnosis Location Date Ambulatory Other vulvodynia Other vulvodynia [facility] 12/13/[address] [facility], [facility] 06/24/[address] [facility] 12/31/2021 [facility], [facility] 07/23/2021 [facility] 05/07/2021 [facility] 02/19/2021 [facility] 12/04/2020 Care Team Organization Name Specialty Phone Email Start Date End [facility] 10/27/2024 [facility] Pamela King Primary Care 02/19/202310/08 [facility] 06/24/2022 06/24/2022 [facility] Sandra Cruz Primary Care 01/15/2022 [facility] ANNA MARIE BHATT Primary Care 01/01/2022 [facility] Anna Marie Bhatt Primary Care 12/04/2020 01/01/20 22
--- OUTSIDE RECORDS SUMMARY | 2025-01-27 19:38 | XMS_ITS | Clinical Summary ---
Author Organization [facility] Address [address] [address] Phone Care Team Providers Care Speech Correction Assistant Name Role Phone Sandra Cruz MD Primary Care Provider [phone] Allergies Active Allergy Reactions Criticality Noted Date Comments Bacitracin Zinc-Polymyxin B 10/18/2021 Bee Venom Protein (Honey Bee) Hives,Nausea And Vomiting High 08/26/2005 Betamethasone Dipropionate Rash Low 08/06/2016 Used on genitals and developed burning & swelling with red welts after 2 days of BID application Cat Dander 03/18/2011 Ciprofloxacin GI Upset 04/20/2018 Other reaction(s): Gastritis Iodinated Contrast Media 10/18/2021 Gabapentin Anaphylaxis High 12/31/2017 Other reaction(s): Numbness, tingling or swelling of the lips, tongue or mouth Hornet Venom 10/18/2021 Latex Rash Low 04/27/2010 Metronidazole 05/27/2016 GI distress Mold 03/18/2011 Prednisone 10/18/2021 Pregabalin 10/18/2021 Sorbitol Rash Low 10/31/2010 Rash on mouth Sulfacetamide Sodium Hives High 08/26/2005 Sulfasalazine Rash Low 07/21/2014 Trimethoprim 10/18/2021 Medications EPINEPHrine (EPIPEN, ADRENACLICK) 0.3 mg/0.3 mL auto-injector Inject 0.3 mg as directed. 5 Active fluticasone propionate (FLONASE) 50 mcg/actuation nasal spray 100 mcg by Nasal route. 10/23/201 5 Active hydrocortisone acetate (ANUSOL-HC) [address] 25 mg rectally. 7 Active hyoscyamine (ANASPAZ,LEVSIN) 0.125 mg tablet Take 0.125 mg by mouth. 7 Active loratadine (CLARITIN) 10 mg tablet Take 10 mg by mouth. Active PAIN RELIEF EXTRA STRENGTH 500 mg tablet TAKE 1 TABLET BY MOUTH EVERY 8 HOURS NEEDED FOR FEVER FOR 90 DAYS 2 Active clobetasol (TEMOVATE) 0.05 % cream Apply topically. Active rosuvastatin (CRESTOR) 10 MG tablet Take 10 mg by mouth daily. 2 Active tiZANidine (ZANAFLEX) 2 MG tablet START TAKING 1 TABLET AT BEDTIME. IF WELL TOLERATED, MAY INCREASE UP TO 2-3 TIMES PER DAY IF NEEDED. 2 Active loratadine (CLARITIN) 10 mg tablet Take 10 mg by mouth daily. Active omeprazole (PRILOSEC) 20 MG capsule Take 20 mg by mouth daily. Active Active Problems Problem Noted Date Diagnosed Date 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 Allergy 06/05/2018 Overview (01/21/2022): 06/05/2018: Had diffuse swelling day after colonoscopy with MAC at [facility] on 06/03/2018. Cause not known. 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 Lung nodule 06/10/2014 Overview (05/06/2017): Overview: CT 12/22 - stable, repeat in 18-[address] 06/24 - stable, no further imaging required Hypercholesterolemia 04/26/2014 BRCA negative 04/18/2014 Overview (05/06/2017): Overview: Testing mar 2014 GERD (gastroesophageal reflux disease) 3 Depressive disorder 05/12/2006 Allergic rhinitis 08/26/2005 Overview (05/06/2017): Overview: Allergiy shots Irritable bowel syndrome 08/26/2005 Immunizations Immunization Administration Dates Next Due COVID-19 (Pre-12/30) Pfizer Vaccine, mRNA, PF Family History Medical History Relation Comments Cancer Father Cancer Maternal Aunt Hypertension Maternal Grandmother Stroke Maternal Grandmother Deep vein thrombosis Mother Breast cancer Paternal Aunt Heart disease Paternal Grandmother Cancer Paternal Uncle Relation Status Comments Father Maternal Aunt Maternal Grandmother Mother Paternal Aunt Paternal Grandmother Paternal Uncle Social History Tobacco Use Types Packs/Day Years Used Date Smoking Tobacco: Former Smokeless Tobacco: Former Alcohol Use Standard Drinks/Week Comments Yes 3 (1 standard drink = 0.6 oz pur e alcohol) Education Answer Date Recorded Are you interested in more education? Not on chris e 07/05/2022 Are you concerned about learning? Not on file 07/05/2022 No 07/05/2022 No 07/05/2022 Digital Access Answer Date Recorded No 08/05/2022 No 08/05/2022 No 08/05/2022 Reliable internet access at home? Not on file 08/05/2022 Device with a working camera? Not on file Comments No Sex and Gender Information Value Date Recorded Sex Assigned at Not on file Legal Sex Female 1:40 PM EDT Gender Identity Not on file Sexual Orientation Not on file Last Filed Vital Signs Vital Sign Reading Time Taken Comments Blood Pressure 123/65 01/21/2022 3:35 PM EST Pulse 78 01/21/2022 3:35 PM EST Temperature 36.6 C (97.8 F) 01/21/2022 3:35 PM EST Respiratory Rate 16 01/21/2022 3:35 PM EST Oxygen Saturation 96% 01/21/2022 3:35 PM EST Inhaled Oxygen Concentration - - Weight 76.7 kg (169 lb) 01/21/2022 3:35 PM EST Height 161.3 cm (5' 3.5 ) 01/21/2022 3:35 PM EST Body Mass Index 29.47 01/21/2022 3:35 PM EST Plan of Treatment Health Maintenance Due Date Last Done Comments DEPRESSION SCREENING 1969 SMOKING Hx and SMOKELESS TOBACCO SCREENING 1970 HEPATITIS C SCREENING 1975 MAMMOGRAM 1997 COLOGUARD 2002 COLONOSCOPY 2002 COLORECTAL CANCER SCREENING 2002 FIT TEST 2002 FOBT 2002 SIGMOIDOSCOPY 2002 VIRTUAL COLONOSCOPY 2002 PNEUMOCOCCAL VACCINES (50+ years) (1 of 1 - PCV) 2007 ZOSTER VACCINES (2 of 2) 02/01/2021 12/07/2020 OSTEOPOROSIS SCREENING INITIAL (ONE-TIME) 2022 Adult Td,Tdap Booster 04/28/2022 04/28/2012 , 08/01/2003, 06/13/1998 INFLUENZA VACCINE (#1) 2024 , 12/07/2020, 11/12/2020, Additional history exists COVID-19 VACCINE ( season) 2024 07/02/2021, 07/02/2021, 01/01/2021, Additional history exists LIPID PANEL 09/19/2026 09/19/2021 RSV VACCINE (1 - 1-dose 75+ series) 2032 HEPATITIS A VACCINES Aged Out No long er eligible based on patient's age to complete this topic HIB VACCINES Aged Out No longer eligi ble based on patient's age to complete this topic MENINGOCOCCAL VACCINES (ACWY) Aged Out No longer eligible based on patient's age to complete this topic MENINGOCOCCAL VACCINES (B) Aged Out N o longer eligible based on patient's age to complete this topic Medical Devices Not on file Insurance [facility] Member Subscriber Plan / Payer (Ef fective 2011-Present) Name:Reyna Jackson Relation to Subscriber:Spouse Name:ISREAL JACKSON Date of :1945 (Home) Address: [address] [place] Payer ID:[id number] (NAIC) Type:HMO Address: [address] [place], [place] Care Teams Speech Correction Assistant Relationship Specialty Start Date End Date Sandra Cruz MD [address] [place] [address] PCP - General Internal Medicine 01/21/22 Additional Source Comments The information contained in this document represents components of the legal health record. It is not the complete legal health record.[facility]
--- OUTSIDE RECORDS SUMMARY | 2025-01-27 19:38 | XMS_ITS | Patient Health Record ---
Author Organization [facility] [address] Address [address] [place] [address] Care Team Providers Care Case Aide Name Role Phone ANAIS AMADOR Unavailable [phone] Allergies Allergen (clinical drug ingredient) Drug/Non Drug Allergy documented on EMR Reaction Allergy Type Onset Date Status Betamethasone Unknown Drug Allergy Act mirna Iodine Unknown Drug Allergy Active Results Component Value Reference Range Notes PPC Hemoglobin A1C Reviewed date:12/08/2024 01:28:39 PM Interpretation:6.0 Performing Lab: Notes/Report: 6.0 Reason For Referral No Information Medications Medication SIG (Take, Route, Frequency, Duration) Notes Start Date End Date Status Albuterol Sulfate HFA 108 (90 Base) MCG/ACT Aerosol Solution INHALE 2 PUFFS EVERY 4 HOURS NEEDED FOR WHEEZE OR FOR SHORTNESS OF BREATH Inhalation; Duration: 17 Days Active Ketoconazole 2 % Shampoo External; Durat ion: 30 Days Active Atorvastatin Calcium 10 MG Tablet Oral; Duration: 90 Days Acti ve Divalproex Sodium 250 MG Tablet Delayed Release 1 tablet Orally Twice a day Active Ozempic (1 MG/DOSE) 4 MG/3ML Solution Pen-injector 1mg Subcutaneous weekly; Duration: 30 days Not-Taking Baby Aspirin Active Abilify Maintena 400 MG Prefilled Syringe Intramuscular; Duration: 30 Days Active EpiPen 2-Hebert 0.3 MG/0.3ML Solution Auto-injector INJECT 1 EACH DIRECTED ONCE NEEDED FOR ALLERGIC REACTION/ANAPHYLAXIS FOR UP TO 1 DOSE. Injection; Duration: 1 Days Active EPINEPHrine 0.3 MG/0.3ML Solution Auto-injector Injection; Duration: 1 Days Active Diclofenac Sodium 1 % Gel External; Dura tion: 20 Days Active Atorvastatin Calcium 10 MG Tablet TAKE 1 TABLET BY MOUTH EVERYDAY AT BEDTIME Oral; Duration: 90 Days Active Methocarbamol 500 MG Tablet TAKE 1 TABLET BY MOUTH TWICE A DAY NEEDED FOR MUSCLE SPASM Oral; Duration: 30 Days Active Ozempic (2 MG/DOSE) 8 MG/3ML Solution Pen-injector 2mg Subcutaneous weekly; Duration: 30 days Active Problems Problem Type SNOMED Code ICD Code Onset Dates Problem Status W/U Status Risk Notes Problem Obesity due to exces s calories (783860518) Other obesity due to excess calories (E66.09) Active confirmed Problem Pure hypercholesterolemia (846856754) Pure hypercholester olemia, unspecified (E78.00) Active confirmed Problem Obstructive sleep ap tasha syndrome (69822408) BAKARI (obstructive sleep apnea) (G47.33) Active confirmed Problem Obese class II (880435620015645) BMI 37.0-37.9, adult (Z68.37) Active confirmed Problem Obese class II (204816121107409) BMI 35.0-35.9,adul t (Z68.35) Active confirmed Problem Obese class II (439909382303897) BMI 36.0-36.9,adul t (Z68.36) Active confirmed Problem Body mass index 30.0 0 to 34.99 (236387177589949) BMI 34.0-34.9,adul t (Z68.34) Active confirmed Vital Signs Heart Rate 90 /min 12/08/2024 Oximetry 91 % 12/08/2024 Blood pressure diastolic 80 mm Hg 12/08/2024 Height 63 in 12/08/2024 Blood pressure systolic 130 mm Hg 12/08/2024 Weight 194.3 lbs 12/08/2024 BMI 34.41 kg/m2 12/08/2024 Encounters Encounter Location Date Provider Diagnosis [facility] [address] [facility] [address] [place] [address] 04/13/2024 ANAIS AMADOR [facility] [address] [facility] [address] [place] [address] 05/04/2024 ANAIS AMADOR [facility] [address] [facility] [address] [place] [address] 11/05/2024 ANAIS AMADOR [facility] [address] [facility] [address] [place] [address] 11/10/2024 ANAIS AMADOR Other obesity due to excess calories E66.09 [facility] [address] [address] 06/30/2024 ANAIS BORHOT Other obesity due to excess calories E66.09 ; BMI 37.0-37.9, adult Z68.37 ; Pure hypercholesterolemia, unspecified E78.00 and Prediabetes R73.03 [facility] [address] 04/06/2024 ANAIS BORHOT Other obesity due to excess calories E66.09 ; Pure hypercholesterolemia, unspecified E78.00 ; Prediabetes R73.03 and BMI 36.0-36.9,adult Z68.36 [facility] [address] 05/18/2024 ANAIS BORHOT Other obesity due to excess calories E66.09 ; BMI 37.0-37.9, adult Z68.37 ; Pure hypercholesterolemia, unspecified E78.00 and Prediabetes R73.03 [facility] [address] 08/11/2024 ANAIS BORHOT Other obesity due to excess calories E66.09 ; BMI 37.0-37.9, adult Z68.37 ; Pure hypercholesterolemia, unspecified E78.00 ; Prediabetes R73.03 and Encounter for examination of blood pressure without abnormal findings Z01.30 [facility] [address] [address] 10/13/2024 ANAIS BORHOT Other obesity due to excess calories E66.09 ; BMI 35.0-35.9,adult Z68.35 ; Pure hypercholesterolemia, unspecified E78.00 ; Prediabetes R73.03 and Encounter for examination of blood pressure without abnormal findings Z01.30 [facility] [address] [address] 12/08/2024 ANAIS BORHOT Other obesity due to excess calories E66.09 ; BMI 34.0-34.9,adult Z68.34 ; Pure hypercholesterolemia, unspecified E78.00 ; Prediabetes R73.03 and Encounter for examination of blood pressure without abnormal findings Z01.30 Assessments Encounter Date Diagnosis (ICD Code) Assessment Notes Treatment Notes Treatment Clinical Notes Section Notes 05/18/2024 Other obesity due to excess calories (ICD-10 - E66.09) #Weight Management 05/18/2024 Continue Ozempic as prescribed F/u in 6weeks Updated labs prior to next visit with her PCP Dr. Cruz. Updated glycemic index, hemoglobin A1c of 6.0 Increase Ozempic to 1 mg if its covered Total time spent today was 30 minutes of which greater than 50% was spent on coordinating and counseling Patient has been found to be obese with a BMI of (37). Patient has class (2) obesity. Of note, some information is being carried forward from prior records for informational purposes only and is being cited so that efficiency, safety and quality of the patient's care is not compromised This note was prepared using voice recognition software and direct typing Please excuse inadvertent complaint specialist or typing errors, or uncorrected word substitutions Although every attempt has been made by the provider to proofread this document, occasional misspellings and typographical errors may still be present Due to the previous pandemic, and the use of personal protective equipment (PPE) This may decrease voice recognition accuracy Inadvertent complaint specialist errors may occur 05/18/2024 BMI 37.0-37.9, adult (ICD-10 - Z68.37) #Weight Management 05/18/2024 Continue Ozempic as prescribed F/u in 6weeks Updated labs prior to next visit with her PCP Dr. Cruz. Updated glycemic index, hemoglobin A1c of 6.0 Increase Ozempic to 1 mg if its covered Total time spent today was 30 minutes of which greater than 50% was spent on coordinating and counseling Patient has been found to be obese with a BMI of (37). Patient has class (2) obesity. Of note, some information is being carried forward from prior records for informational purposes only and is being cited so that efficiency, safety and quality of the patient's care is not compromised This note was prepared using voice recognition software and direct typing Please excuse inadvertent complaint specialist or typing errors, or uncorrected word substitutions Although every attempt has been made by the provider to proofread this document, occasional misspellings and typographical errors may still be present Due to the previous pandemic, and the use of personal protective equipment (PPE) This may decrease voice recognition accuracy Inadvertent complaint specialist errors may occur 06/30/2024 Other obesity due to excess calories (ICD-10 - E66.09) #Weight Management 06/30/2024 Continue 1 mg dosing model Will follow-up on labs with PCP in the upcoming weeks Total time spent today was 30 minutes of which greater than 50% was spent on coordinating and counseling Patient has been found to be obese with a BMI of (37). Patient has class (2) obesity. Of note, some information is being carried forward from prior records for informational purposes only and is being cited so that efficiency, safety and quality of the patient's care is not compromised This note was prepared using voice recognition software and direct typing Please excuse inadvertent complaint specialist or typing errors, or uncorrected word substitutions Although every attempt has been made by the provider to proofread this document, occasional misspellings and typographical errors may still be present Due to the previous pandemic, and the use of personal protective equipment (PPE) This may decrease voice recognition accuracy Inadvertent complaint specialist errors may occur 08/11/2024 Other obesity due to excess calories (ICD-10 - E66.09) #Weight Management 08/11/2024 Continue 1 mg dosing model Will increase to 2mg if still interested Total time spent today was 30 minutes of which greater than 50% was spent on coordinating and counseling Patient has been found to be obese with a BMI of (37). Patient has class (2) obesity. Of note, some information is being carried forward from prior records for informational purposes only and is being cited so that efficiency, safety and quality of the patient's care is not compromised This note was prepared using voice recognition software and direct typing Please excuse inadvertent complaint specialist or typing errors, or uncorrected word substitutions Although every attempt has been made by the provider to proofread this document, occasional misspellings and typographical errors may still be present Due to the previous pandemic, and the use of personal protective equipment (PPE) This may decrease voice recognition accuracy Inadvertent complaint specialist errors may occur 08/11/2024 BMI 37.0-37.9, adult (ICD-10 - Z68.37) #Weight Management 08/11/2024 Continue 1 mg dosing model Will increase to 2mg if still interested Total time spent today was 30 minutes of which greater than 50% was spent on coordinating and counseling Patient has been found to be obese with a BMI of (37). Patient has class (2) obesity. Of note, some information is being carried forward from prior records for informational purposes only and is being cited so that efficiency, safety and quality of the patient's care is not compromised This note was prepared using voice recognition software and direct typing Please excuse inadvertent complaint specialist or typing errors, or uncorrected word substitutions Although every attempt has been made by the provider to proofread this document, occasional misspellings and typographical errors may still be present Due to the previous pandemic, and the use of personal protective equipment (PPE) This may decrease voice recognition accuracy Inadvertent complaint specialist errors may occur 10/13/2024 Other obesity due to excess calories (ICD-10 - E66.09) #Weight Management 10/13/2024 Continue 1 mg dosing model Will increase to 2mg if still interested Total time spent today was 30 minutes of which greater than 50% was spent on coordinating and counseling Patient has been found to be obese with a BMI of (35). Patient has class (2) obesity. Of note, some information is being carried forward from prior records for informational purposes only and is being cited so that efficiency, safety and quality of the patient's care is not compromised This note was prepared using voice recognition software and direct typing Please excuse inadvertent complaint specialist or typing errors, or uncorrected word substitutions Although every attempt has been made by the provider to proofread this document, occasional misspellings and typographical errors may still be present Due to the previous pandemic, and the use of personal protective equipment (PPE) This may decrease voice recognition accuracy Inadvertent complaint specialist errors may occur 10/13/2024 BMI 35.0-35.9,adult (ICD-10 - Z68.35) #Weight Management 10/13/2024 Continue 1 mg dosing model Will increase to 2mg if still interested Total time spent today was 30 minutes of which greater than 50% was spent on coordinating and counseling Patient has been found to be obese with a BMI of (35). Patient has class (2) obesity. Of note, some information is being carried forward from prior records for informational purposes only and is being cited so that efficiency, safety and quality of the patient's care is not compromised This note was prepared using voice recognition software and direct typing Please excuse inadvertent complaint specialist or typing errors, or uncorrected word substitutions Although every attempt has been made by the provider to proofread this document, occasional misspellings and typographical errors may still be present Due to the previous pandemic, and the use of personal protective equipment (PPE) This may decrease voice recognition accuracy Inadvertent complaint specialist errors may occur 11/10/2024 Other obesity due to excess calories (ICD-10 - E66.09) 12/08/2024 Other obesity due to excess calories (ICD-10 - E66.09) #Weight Management 12/08/2024 Continue 2 mg dosing model, thriving downtrending hgb a1c @ 6.0, previously 6.4 Total time spent today was 30 minutes of which greater than 50% was spent on coordinating and counseling Patient has been found to be obese with a BMI of (34). Patient has class (2) obesity. Of note, some information is being carried forward from prior records for informational purposes only and is being cited so that efficiency, safety and quality of the patient's care is not compromised This note was prepared using voice recognition software and direct typing Please excuse inadvertent complaint specialist or typing errors, or uncorrected word substitutions Although every attempt has been made by the provider to proofread this document, occasional misspellings and typographical errors may still be present Due to the previous pandemic, and the use of personal protective equipment (PPE) This may decrease voice recognition accuracy Inadvertent complaint specialist errors may occur 12/08/2024 BMI 34.0-34.9,adult (ICD-10 - Z68.34) #Weight Management 12/08/2024 Continue 2 mg dosing model, thriving downtrending hgb a1c @ 6.0, previously 6.4 Total time spent today was 30 minutes of which greater than 50% was spent on coordinating and counseling Patient has been found to be obese with a BMI of (34). Patient has class (2) obesity. Of note, some information is being carried forward from prior records for informational purposes only and is being cited so that efficiency, safety and quality of the patient's care is not compromised This note was prepared using voice recognition software and direct typing Please excuse inadvertent complaint specialist or typing errors, or uncorrected word substitutions Although every attempt has been made by the provider to proofread this document, occasional misspellings and typographical errors may still be present Due to the previous pandemic, and the use of personal protective equipment (PPE) This may decrease voice recognition accuracy Inadvertent complaint specialist errors may occur 04/06/2024 Other obesity due to excess calories (ICD-10 - E66.09) #Weight Management 04/06/2024 Updated glycemic index, hemoglobin A1c of 6.0 Increase Ozempic to 1 mg Total time spent today was 30 minutes of which greater than 50% was spent on coordinating and counseling Patient has been found to be obese with a BMI of (36). Patient has class (2) obesity. Of note, some information is being carried forward from prior records for informational purposes only and is being cited so that efficiency, safety and quality of the patient's care is not compromised This note was prepared using voice recognition software and direct typing Please excuse inadvertent complaint specialist or typing errors, or uncorrected word substitutions Although every attempt has been made by the provider to proofread this document, occasional misspellings and typographical errors may still be present Due to the previous pandemic, and the use of personal protective equipment (PPE) This may decrease voice recognition accuracy Inadvertent complaint specialist errors may occur 04/06/2024 Pure hypercholestero lemia, unspecified (ICD-10 - E78.00) #Weight Management 04/06/2024 Updated glycemic index, hemoglobin A1c of 6.0 Increase Ozempic to 1 mg Total time spent today was 30 minutes of which greater than 50% was spent on coordinating and counseling Patient has been found to be obese with a BMI of (36). Patient has class (2) obesity. Of note, some information is being carried forward from prior records for informational purposes only and is being cited so that efficiency, safety and quality of the patient's care is not compromised This note was prepared using voice recognition software and direct typing Please excuse inadvertent complaint specialist or typing errors, or uncorrected word substitutions Although every attempt has been made by the provider to proofread this document, occasional misspellings and typographical errors may still be present Due to the previous pandemic, and the use of personal protective equipment (PPE) This may decrease voice recognition accuracy Inadvertent complaint specialist errors may occur 10/13/2024 Pure hypercholestero lemia, unspecified (ICD-10 - E78.00) #Weight Management 10/13/2024 Continue 1 mg dosing model Will increase to 2mg if still interested Total time spent today was 30 minutes of which greater than 50% was spent on coordinating and counseling Patient has been found to be obese with a BMI of (35). Patient has class (2) obesity. Of note, some information is being carried forward from prior records for informational purposes only and is being cited so that efficiency, safety and quality of the patient's care is not compromised This note was prepared using voice recognition software and direct typing Please excuse inadvertent complaint specialist or typing errors, or uncorrected word substitutions Although every attempt has been made by the provider to proofread this document, occasional misspellings and typographical errors may still be present Due to the previous pandemic, and the use of personal protective equipment (PPE) This may decrease voice recognition accuracy Inadvertent complaint specialist errors may occur 12/08/2024 Pure hypercholestero lemia, unspecified (ICD-10 - E78.00) #Weight Management 12/08/2024 Continue 2 mg dosing model, thriving downtrending hgb a1c @ 6.0, previously 6.4 Total time spent today was 30 minutes of which greater than 50% was spent on coordinating and counseling Patient has been found to be obese with a BMI of (34). Patient has class (2) obesity. Of note, some information is being carried forward from prior records for informational purposes only and is being cited so that efficiency, safety and quality of the patient's care is not compromised This note was prepared using voice recognition software and direct typing Please excuse inadvertent complaint specialist or typing errors, or uncorrected word substitutions Although every attempt has been made by the provider to proofread this document, occasional misspellings and typographical errors may still be present Due to the previous pandemic, and the use of personal protective equipment (PPE) This may decrease voice recognition accuracy Inadvertent complaint specialist errors may occur 08/11/2024 Pure hypercholestero lemia, unspecified (ICD-10 - E78.00) #Weight Management 08/11/2024 Continue 1 mg dosing model Will increase to 2mg if still interested Total time spent today was 30 minutes of which greater than 50% was spent on coordinating and counseling Patient has been found to be obese with a BMI of (37). Patient has class (2) obesity. Of note, some information is being carried forward from prior records for informational purposes only and is being cited so that efficiency, safety and quality of the patient's care is not compromised This note was prepared using voice recognition software and direct typing Please excuse inadvertent complaint specialist or typing errors, or uncorrected word substitutions Although every attempt has been made by the provider to proofread this document, occasional misspellings and typographical errors may still be present Due to the previous pandemic, and the use of personal protective equipment (PPE) This may decrease voice recognition accuracy Inadvertent complaint specialist errors may occur 06/30/2024 BMI 37.0-37.9, adult (ICD-10 - Z68.37) #Weight Management 06/30/2024 Continue 1 mg dosing model Will follow-up on labs with PCP in the upcoming weeks Total time spent today was 30 minutes of which greater than 50% was spent on coordinating and counseling Patient has been found to be obese with a BMI of (37). Patient has class (2) obesity. Of note, some information is being carried forward from prior records for informational purposes only and is being cited so that efficiency, safety and quality of the patient's care is not compromised This note was prepared using voice recognition software and direct typing Please excuse inadvertent complaint specialist or typing errors, or uncorrected word substitutions Although every attempt has been made by the provider to proofread this document, occasional misspellings and typographical errors may still be present Due to the previous pandemic, and the use of personal protective equipment (PPE) This may decrease voice recognition accuracy Inadvertent complaint specialist errors may occur 05/18/2024 Pure hypercholestero lemia, unspecified (ICD-10 - E78.00) #Weight Management 05/18/2024 Continue Ozempic as prescribed F/u in 6weeks Updated labs prior to next visit with her PCP Dr. Cruz. Updated glycemic index, hemoglobin A1c of 6.0 Increase Ozempic to 1 mg if its covered Total time spent today was 30 minutes of which greater than 50% was spent on coordinating and counseling Patient has been found to be obese with a BMI of (37). Patient has class (2) obesity. Of note, some information is being carried forward from prior records for informational purposes only and is being cited so that efficiency, safety and quality of the patient's care is not compromised This note was prepared using voice recognition software and direct typing Please excuse inadvertent complaint specialist or typing errors, or uncorrected word substitutions Although every attempt has been made by the provider to proofread this document, occasional misspellings and typographical errors may still be present Due to the previous pandemic, and the use of personal protective equipment (PPE) This may decrease voice recognition accuracy Inadvertent complaint specialist errors may occur 05/18/2024 Prediabetes (ICD-10 - R73.03) #Weight Management 05/18/2024 Continue Ozempic as prescribed F/u in 6weeks Updated labs prior to next visit with her PCP Dr. Cruz. Updated glycemic index, hemoglobin A1c of 6.0 Increase Ozempic to 1 mg if its covered Total time spent today was 30 minutes of which greater than 50% was spent on coordinating and counseling Patient has been found to be obese with a BMI of (37). Patient has class (2) obesity. Of note, some information is being carried forward from prior records for informational purposes only and is being cited so that efficiency, safety and quality of the patient's care is not compromised This note was prepared using voice recognition software and direct typing Please excuse inadvertent complaint specialist or typing errors, or uncorrected word substitutions Although every attempt has been made by the provider to proofread this document, occasional misspellings and typographical errors may still be present Due to the previous pandemic, and the use of personal protective equipment (PPE) This may decrease voice recognition accuracy Inadvertent complaint specialist errors may occur 06/30/2024 Pure hypercholestero lemia, unspecified (ICD-10 - E78.00) #Weight Management 06/30/2024 Continue 1 mg dosing model Will follow-up on labs with PCP in the upcoming weeks Total time spent today was 30 minutes of which greater than 50% was spent on coordinating and counseling Patient has been found to be obese with a BMI of (37). Patient has class (2) obesity. Of note, some information is being carried forward from prior records for informational purposes only and is being cited so that efficiency, safety and quality of the patient's care is not compromised This note was prepared using voice recognition software and direct typing Please excuse inadvertent complaint specialist or typing errors, or uncorrected word substitutions Although every attempt has been made by the provider to proofread this document, occasional misspellings and typographical errors may still be present Due to the previous pandemic, and the use of personal protective equipment (PPE) This may decrease voice recognition accuracy Inadvertent complaint specialist errors may occur 08/11/2024 Prediabetes (ICD-10 - R73.03) #Weight Management 08/11/2024 Continue 1 mg dosing model Will increase to 2mg if still interested Total time spent today was 30 minutes of which greater than 50% was spent on coordinating and counseling Patient has been found to be obese with a BMI of (37). Patient has class (2) obesity. Of note, some information is being carried forward from prior records for informational purposes only and is being cited so that efficiency, safety and quality of the patient's care is not compromised This note was prepared using voice recognition software and direct typing Please excuse inadvertent complaint specialist or typing errors, or uncorrected word substitutions Although every attempt has been made by the provider to proofread this document, occasional misspellings and typographical errors may still be present Due to the previous pandemic, and the use of personal protective equipment (PPE) This may decrease voice recognition accuracy Inadvertent complaint specialist errors may occur 12/08/2024 Prediabetes (ICD-10 - R73.03) #Weight Management 12/08/2024 Continue 2 mg dosing model, thriving downtrending hgb a1c @ 6.0, previously 6.4 Total time spent today was 30 minutes of which greater than 50% was spent on coordinating and counseling Patient has been found to be obese with a BMI of (34). Patient has class (2) obesity. Of note, some information is being carried forward from prior records for informational purposes only and is being cited so that efficiency, safety and quality of the patient's care is not compromised This note was prepared using voice recognition software and direct typing Please excuse inadvertent complaint specialist or typing errors, or uncorrected word substitutions Although every attempt has been made by the provider to proofread this document, occasional misspellings and typographical errors may still be present Due to the previous pandemic, and the use of personal protective equipment (PPE) This may decrease voice recognition accuracy Inadvertent complaint specialist errors may occur 10/13/2024 Prediabetes (ICD-10 - R73.03) #Weight Management 10/13/2024 Continue 1 mg dosing model Will increase to 2mg if still interested Total time spent today was 30 minutes of which greater than 50% was spent on coordinating and counseling Patient has been found to be obese with a BMI of (35). Patient has class (2) obesity. Of note, some information is being carried forward from prior records for informational purposes only and is being cited so that efficiency, safety and quality of the patient's care is not compromised This note was prepared using voice recognition software and direct typing Please excuse inadvertent complaint specialist or typing errors, or uncorrected word substitutions Although every attempt has been made by the provider to proofread this document, occasional misspellings and typographical errors may still be present Due to the previous pandemic, and the use of personal protective equipment (PPE) This may decrease voice recognition accuracy Inadvertent complaint specialist errors may occur 04/06/2024 Prediabetes (ICD-10 - R73.03) #Weight Management 04/06/2024 Updated glycemic index, hemoglobin A1c of 6.0 Increase Ozempic to 1 mg Total time spent today was 30 minutes of which greater than 50% was spent on coordinating and counseling Patient has been found to be obese with a BMI of (36). Patient has class (2) obesity. Of note, some information is being carried forward from prior records for informational purposes only and is being cited so that efficiency, safety and quality of the patient's care is not compromised This note was prepared using voice recognition software and direct typing Please excuse inadvertent complaint specialist or typing errors, or uncorrected word substitutions Although every attempt has been made by the provider to proofread this document, occasional misspellings and typographical errors may still be present Due to the previous pandemic, and the use of personal protective equipment (PPE) This may decrease voice recognition accuracy Inadvertent complaint specialist errors may occur 04/06/2024 BMI 36.0-36.9,adult (ICD-10 - Z68.36) #Weight Management 04/06/2024 Updated glycemic index, hemoglobin A1c of 6.0 Increase Ozempic to 1 mg Total time spent today was 30 minutes of which greater than 50% was spent on coordinating and counseling Patient has been found to be obese with a BMI of (36). Patient has class (2) obesity. Of note, some information is being carried forward from prior records for informational purposes only and is being cited so that efficiency, safety and quality of the patient's care is not compromised This note was prepared using voice recognition software and direct typing Please excuse inadvertent complaint specialist or typing errors, or uncorrected word substitutions Although every attempt has been made by the provider to proofread this document, occasional misspellings and typographical errors may still be present Due to the previous pandemic, and the use of personal protective equipment (PPE) This may decrease voice recognition accuracy Inadvertent complaint specialist errors may occur 12/08/2024 Encounter for examination of blood pressure without abnormal findings (ICD-10 - Z01.30) #Weight Management 12/08/2024 Continue 2 mg dosing model, thriving downtrending hgb a1c @ 6.0, previously 6.4 Total time spent today was 30 minutes of which greater than 50% was spent on coordinating and counseling Patient has been found to be obese with a BMI of (34). Patient has class (2) obesity. Of note, some information is being carried forward from prior records for informational purposes only and is being cited so that efficiency, safety and quality of the patient's care is not compromised This note was prepared using voice recognition software and direct typing Please excuse inadvertent complaint specialist or typing errors, or uncorrected word substitutions Although every attempt has been made by the provider to proofread this document, occasional misspellings and typographical errors may still be present Due to the previous pandemic, and the use of personal protective equipment (PPE) This may decrease voice recognition accuracy Inadvertent complaint specialist errors may occur 10/13/2024 Encounter for examination of blood pressure without abnormal findings (ICD-10 - Z01.30) #Weight Management 10/13/2024 Continue 1 mg dosing model Will increase to 2mg if still interested Total time spent today was 30 minutes of which greater than 50% was spent on coordinating and counseling Patient has been found to be obese with a BMI of (35). Patient has class (2) obesity. Of note, some information is being carried forward from prior records for informational purposes only and is being cited so that efficiency, safety and quality of the patient's care is not compromised This note was prepared using voice recognition software and direct typing Please excuse inadvertent complaint specialist or typing errors, or uncorrected word substitutions Although every attempt has been made by the provider to proofread this document, occasional misspellings and typographical errors may still be present Due to the previous pandemic, and the use of personal protective equipment (PPE) This may decrease voice recognition accuracy Inadvertent complaint specialist errors may occur 08/11/2024 Encounter for examination of blood pressure without abnormal findings (ICD-10 - Z01.30) #Weight Management 08/11/2024 Continue 1 mg dosing model Will increase to 2mg if still interested Total time spent today was 30 minutes of which greater than 50% was spent on coordinating and counseling Patient has been found to be obese with a BMI of (37). Patient has class (2) obesity. Of note, some information is being carried forward from prior records for informational purposes only and is being cited so that efficiency, safety and quality of the patient's care is not compromised This note was prepared using voice recognition software and direct typing Please excuse inadvertent complaint specialist or typing errors, or uncorrected word substitutions Although every attempt has been made by the provider to proofread this document, occasional misspellings and typographical errors may still be present Due to the previous pandemic, and the use of personal protective equipment (PPE) This may decrease voice recognition accuracy Inadvertent complaint specialist errors may occur 06/30/2024 Prediabetes (ICD-10 - R73.03) #Weight Management 06/30/2024 Continue 1 mg dosing model Will follow-up on labs with PCP in the upcoming weeks Total time spent today was 30 minutes of which greater than 50% was spent on coordinating and counseling Patient has been found to be obese with a BMI of (37). Patient has class (2) obesity. Of note, some information is being carried forward from prior records for informational purposes only and is being cited so that efficiency, safety and quality of the patient's care is not compromised This note was prepared using voice recognition software and direct typing Please excuse inadvertent complaint specialist or typing errors, or uncorrected word substitutions Although every attempt has been made by the provider to proofread this document, occasional misspellings and typographical errors may still be present Due to the previous pandemic, and the use of personal protective equipment (PPE) This may decrease voice recognition accuracy Inadvertent complaint specialist errors may occur Plan Of Treatment Next Appt Details Provider Name:ANAIS AMADOR, 01/31/2025 01:45:00 PM, [address] [facility] [address], [place], [address], Insurance Providers Payer Name Payer Address Payer Phone Subscriber Number Group Number Insured Name Patient Relationship to Insured Coverage Start Date Coverage End Date Medicare Part B [id number] [address] [place]jo[place] abram sullivan [id number] [id number] Reyna Jackson Self - patient is the insured 3 MED[employer] [address] [place] [address] [id number] Reyna Jackson Self - patient is the insured Medications Administered Medication Instructions Date of Administration Dosage Notes MICC B12 INJECTION 12/09/2022 MICC B12 INJECTION 12/23/2022 MICC B12 INJECTION 01/27/2023 MICC B12 INJECTION 05/15/2023 Medical (General) History Medical History History ICD Code anxiety depression vulvodynia hypercholesterolemia irritable bowel syndrome Hospitalization History Reason Date(Month/Year) psych 2022
--- OUTSIDE RECORDS SUMMARY | 2025-01-27 19:38 | XMS_ITS | Encounter Summary ---
Author Organization [facility] Address [address] [place] [address] Care Team Providers Care Career Services Officer Name Role Phone Sandra Cruz MD Primary Care Provider [phone] Encounter Details Date Type Department Care Team (Late st Contact Info) Description 12/10/2024 Results Follow-Up Adult Medicine [facility] [address] [place], [place] [phone] Pamela King PA [address] [place] [id number] Social History Tobacco Use Types Packs/Day Years [...] care for your loved ones. 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 [...] 03/14/2025 1:20 PM EST Appointment Radiology Department [address] [phone] documented as of this encounter Visit Diagnoses Not on filedocumented in this encounter Additional Health Concerns Assessment Noted Time PHQ-9 Depression Total Score: 0 04/09/19 25 11:51 AM EST documented as of this encounter Care Teams Career Services Officer Relationship Specialty Start Date End Date Sandra Cruz MD [address] [place] [address] PCP - General Internal Medicine 06/14/20 documented as of this encounter
--- OUTSIDE RECORDS SUMMARY | 2025-01-27 19:38 | XMS_ITS | Patient Health Record ---
Author Organization [facility] Address [address] [facility] [address] [place] [address] Care Team Providers Care Aerial Erector Name Role Phone Anna Marie Bhatt Primary Care Provider Unavailabl e Allergies Allergen (clinical drug ingredient) Drug/Non Drug Allergy documented on EMR Reaction Allergy Type Onset Date Status betamethasone Diprolene Unknown Drug Allergy Act mirna Sorbitol Unknown Drug Allergy Active Cat dander Cat Dander Unknown Allergy Active Dust Mites Unknown Allergy Active gabapentin Gabapentin Unknown Drug Allergy Activ e Latex Latex Unknown Allergy Active Mold Unknown Allergy Active Substance with sulfonamide structure and antibacterial mechanism of action (substance) Sulfa Antibiotics Unknown Drug Allergy Active ciprofloxacin Ciprofloxacin Unknown Drug Allergy Active metronidazole Metronidazole Unknown Drug Allergy Active Reason For Referral No Information Medications Medication SIG (Take, Route, Frequency, Duration) Notes Start Date End Date Status Calcium + D + K Acti ve Multivitamin Active Xylocaine 5 % ointment blu ly to the effected area neck 1 hr before procedure Active EpiPen Active Ranitidine 150 Max Strength at bed time Active Hyoscyamine every 6 hr prn f or cramping Active Estradiol 2 MG as directed Vaginal Active Loratadine 10 MG 1 tablet Orally Once a day Active Nasal [place] Active Benadryl 50 mg cap every 6 hr prn Active Plan Of Treatment Pending Test Test Name Order Date X ray : Foot, left 3v 07/14/2020 X ray : Foot, right 3v 07/14/2020 Punch Biopsy 07/14/2020 Insurance Providers Payer Name Payer Address Payer Phone Subscriber Number Group Number Insured Name Patient Relationship to Insured Coverage Start Date Coverage End Date [facility] [address] [place] [address] [phone] [id number] Reyna Jackson Self - patient is the insured Medical (General) History Medical History History ICD Code Allergic rhinitis, unspecified J30.9 Allergy, unspecified, initial encounter T78.40XA Low back pain M54.5 Other chronic pain G89.29 Adjustment disorder with mixed anxiety a nd depressed mood F43.23 Calculus of gallbladder without cholecys titis without obstruction K80.20 Other specified diseases of anus and rec christiana K62.89 Other specified disorders of muscle M62. 89 Anal spasm K59.4 Solitary pulmonary nodule R91.1 Pure hypercholesterolemia, unspecified E 78.00 Encounter for nonprocreative screening f or genetic disease carrier status Z13.71 Gastro-esophageal reflux disease without esophagitis K21.9 Major depressive disorder, single episod e, unspecified F32.9 Irritable bowel syndrome without diarrhe a K58.9
== END 2025-01-27 14:33 | disposition home or self-care (01) ==
LOC: HO.HOS 14:15
PROVIDERS: PCP Internal Medicine; Visit Provider Orthopaedic Surgery
DX: M25.312 Other instability, left shoulder (principal)
CPT/HCPCS: 99203; G2211